=== PATIENT | male | born 1960 | race Caucasian/White ===

== ENCOUNTER 2018-06-06 12:38 | Emergency (ER) | payer MEDICARE, SELFPAY ==
[2018-06-06 12:39] VITALS: BP 139/80; PULSE 80; RESP 20; TEMP 36.6; O2SAT 99; BMI 29.9
--- NOTE | 2018-06-06 13:17 | CT_ITS ---
STUDY: CT ABDOMEN AND PELVIS WITHOUT CONTRAST REASON FOR EXAM: Male, 58 years old. Right flank pain. RADIATION DOSAGE (If Supplied By Facility): CTDIvol = ( 10.55 ) mGy, DLP = ( 508.85 ) mGycm TECHNIQUE: Transaxial images were obtained from the dome of the diaphragm to the symphysis pubis without oral contrast, and without intravenous contrast. Sagittal and coronal images were reconstructed. Individualized dose optimization techniques were used for this CT. COMPARISON: 11/03/2013 FINDINGS: The visualized lung bases are unremarkable. The visualized portions of the heart are within normal limits. Normal liver. Normal gallbladder and extrahepatic biliary system. Normal spleen. Normal pancreas. Normal bilateral adrenal glands. Normal right kidney. Punctate nonobstructing left upper and lower pole nephrolith. Normal visualized stomach. Normal small intestine. There are multiple colonic diverticula consistent with diverticulosis. The appendix is visualized and appears normal. There is diffuse atherosclerotic calcification of the abdominal aorta, without a demonstrated aneurysm. Normal inferior vena cava. Normal retroperitoneum. Normal urinary bladder. Multiple prostate seeds are noted. Normal abdominal wall. Extensive fusion of the lower lumbar spine. No acute findings. CT/Abdomen/Pelvis without Cont IMPRESSION: No acute findings. Punctate nonobstructing left-sided nephrolithiasis. Unremarkable appendix. Electronically Signed: Ignacio Ruth DO at 14:21 EDT Tel , Service support ,
--- NOTE | 2018-06-06 13:21 | ED.DCSUM_ITS ---
- ER Visit Summary Date of Service: 06/06/18 Chief Complaint: Right flank pain History of Present Illness: The patient is a 58 M who presents for 1 week of intermittent right-sided flank pain. Patient is having severe sharp stabbing pain in the right upper flank that does not radiate. It started 1 week ago and lasted a couple days, resolved and then returned yesterday. Pain is intermittent but very severe when it occurs. Worse with breathing and movement. Patient denies any fever, chest pain, shortness of breath, nausea or vomiting, diarrhea, hematuria or other urinary symptoms. No history of venous thromboembolism, travel or surgery. No cardiac history. Patient has history of chronic back pain but it is in the left lumbar region. No numbness or weakness in the arms or legs. Physical Examination: Vital signs: afebrile, hemodynamically stable, no hypoxia on room air General: well nourished, well developed, appears uncomfortable Skin: warm, dry, no rash, no pallor HEENT: normocephalic and atraumatic; PERRL, EOMI, moist mucous membranes Cardiovascular: regular rate and rhythm without murmurs, no peripheral edema, 2+ pulses all distal extremities Respiratory: No increased work of breathing, lungs are clear to auscultation bilaterally, no rales, rhonchi or wheezing Abdominal: Abdomen is soft, nontender with normoactive bowel sounds, no guarding or rebound, no masses, no CVA tenderness, no tenderness to palpation of the right flank MSK: Moves all extremities, no deformities, normal strength Neuro: Awake and alert, oriented ?4. No facial droop, sensation and motor function intact and symmetric Test Results: Abnormal Lab Results 06/06/18 06/06/18 06/06/18 13:24 13:24 14:50 WBC 6.6 RBC 4.40 L Hgb 12.8 L Hct 38.4 L MCV 87.3 MCH 29.1 MCHC 33.3 RDW 13.4 RDW Differential 41.9 Plt Count 254 MPV 8.9 Immature Gran % (Auto) 0.300 Neut % (Auto) 62.2 Lymph % (Auto) 26.7 [place] % (Auto) 7.3 Eos % (Auto) 2.7 Baso % (Auto) 0.8 Absolute Neuts (auto) 4.1 Absolute Lymphs (auto) 1.75 Total Counted Not Reportable Sodium 141 Potassium 4.0 Chloride 109 H Carbon Dioxide 26.0 Anion Gap 6 BUN 15 Creatinine 0.95 Estim Creat Clear Calc 87.51 Est GFR (MDRD) Af Amer 104 Est GFR (MDRD) Non-Af 86 BUN/Creatinine Ratio 15.7 Glucose 98 Calcium 9.1 Total Bilirubin 0.30 AST 16 ALT 25 Alkaline Phosphatase 73 Total Protein 6.9 Albumin 3.7 Globulin 3.2 Albumin/Globulin Ratio 1.2 Urine Color Yellow Urine Clarity Clear Urine pH 6.5 Ur Specific [place] 1.015 Urine Protein Negative Urine Glucose (UA) Normal Urine Ketones Negative Urine Occult Blood Negative Urine Nitrite Negative Urine Bilirubin 1 H Urine Urobilinogen Normal Ur Leukocyte Esterase 25 H Urine RBC 0-5 SEEN Urine WBC 0 SEEN Ur Squamous Epith Cells 0 SEEN Urine Bacteria 0 SEEN Urine Mucus 0 SEEN Clinical Impression(s) from Imaging Studies Abdomen/Pelvis CT 06/06/18 13:17 IMPRESSION: No acute findings. Punctate nonobstructing left-sided nephrolithiasis. Unremarkable appendix. Electronically Signed: Ignacio Ruth DO at 14:21 EDT Tel , Service support , Chest X-Ray 06/06/18 13:45 IMPRESSION: Normal x-ray examination of the chest. Electronically Signed: Ignacio Ruth DO at 14:28 EDT Tel , Service support , Abdomen/Pelvis CTA 06/06/18 15:20 IMPRESSION: No evidence of acute pathology involving the thoracic aorta. No acute pulmonary findings. Electronically Signed: Miki Trivedi MD at 16:38 EDT Tel , Service support , Medications Given Discontinued Medications Sodium Chloride () 1,000 mls @ 250 mls/hr IV .Q4H JOHN Last Admin: 06/06/18 13:24 Dose: 250 mls/hr Ketorolac Tromethamine (Toradol) 15 mg IV X1 ONE Stop: 09/29/18 13:17 Last Admin: 06/06/18 13:27 Dose: 15 mg Morphine Sulfate () 4 mg IV X1 ONE Stop: 06/06/18 15:21 Last Admin: 06/06/18 15:39 Dose: 4 mg Ondansetron HCl (Zofran) 4 mg IV X1 ONE Stop: 06/06/18 13:17 Last Admin: 06/06/18 13:27 Dose: 4 mg Emergency Department Course and Treatment: Patient was given Toradol and Zofran for symptomatic relief. He had modest improvement in his pain and required additional morphine for pain. Workup was performed to look for cause of patient's flank pain. He had no rash consistent with shingles. He had no leukocytosis or anemia. No renal derangements. Normal hepatic function. Urine was negative for infection. CT flank showed no stones and showed a normal appendix. Patient continued to have the significant intermittent right flank pain, which was not reproducible with palpation. This was concerning for possible vascular pathology, including dissection, pulmonary infarct from PE, renal infarct, etc. CT angios of the chest abdomen and pelvis was performed that showed no dissection, no aortic pathology, no PE, no pulmonary infarction or renal infarction, or any other concerning findings to explain patient's pain. Patient's pain was better controlled after 2 rounds of medication. He was given a prescription for Percocet for pain and will continue to use naproxen at home. He will follow-up on Friday with his primary care doctor. He was discharged home and will return if worsening of his condition. Treatment Plan: [] Disposition: [] Impression: Right flank pain of unknown origin This note was generated with [email or web address] dictation software. It may contain incorrect words, spelling, and punctuation that were not noted in review of the chart prior to signing ED Disposition - Plan for ED Patient: Disposition: Home or Assisted Living Chief Complaint: Back Instructions: ED Flank Pain Uncertain Cause Prescriptions: Oxycodone HCl/Acetaminophen [Percocet 5/325] 1 tab PO Q6H PRN PRN 5 Days #15 tab PRN Reason: Pain Referrals: [facility] [Primary Care Provider] - 1-2 Days if not improving Additional Instructions: Please continue taking naproxen for pain, and use the Percocet for severe pain. Follow-up with your doctor if you are not having improvement in 2 days. If you have any worsening of your condition or any new concerning symptoms, please return immediately to the emergency department for another evaluation.
[2018-06-06] MEDS: 0.9% Normal Saline 1,000 ML 250 ML IV (13:24)
[2018-06-06] MEDS: Ondansetron 4 MG/2 ML Vial IV (13:27)
[2018-06-06] MEDS: Ketorolac 30 MG/ML Syringe 15 MG IV (13:27)
[2018-06-06 13:32] LABS: Absolute Lymphocyte Count 1.75 X10^3/ul (0.83-4.51); Absolute Neutrophil Count 4.1 X10^3/uL (2.0-7.7); Basophil# 0.05 X10^3/uL; Basophil% 0.8 % (0-1); Eosinophil# 0.18 X10^3/uL; Eosinophils% 2.7 % (0-5); Hematocrit 38.4 % (40-54); Hemoglobin 12.8 g/dl (13.0-16.5); Lymphocyte # 1.75 X10^3/ul (4.0); Lymphocyte % 26.7 % (19-41); Mean Corp Hgb Conc 33.3 g/gl (32-36); Mean Corpuscular Hgb 29.1 pg (27.0-32.0); Mean Corpuscular Volume 87.3 fL (80-94); Mean Platelet Vol. 8.9 fl (6.2-12.0); Monocyte# 0.48 X10^3/uL; Monocyte% 7.3 % (0-10); Neutrophil # 4.08 X10^3/uL (2.7-7.7); Neutrophil % 62.2 % (47-70); Platelet Count 254 K/mm3 (150-450); RBC Distribution Width CV 13.4 % (11.6-14.6); RBC Distribution Width SD 41.9 fl (35.1-43.9); White Blood Count 6.6 K/mm3 (4.4-11.0)
[2018-06-06 13:34] LABS: POSITIVE COUNT NO; POSITIVE DIFFERENTIAL NO; POSITIVE MORPHOLOGY NO
--- NOTE | 2018-06-06 13:45 | RAD_ITS ---
STUDY: X-RAY CHEST REASON FOR EXAM: Male, 58 years old. Right posterior lower chest pain TECHNIQUE: PA and lateral views of the chest. COMPARISON: 11/02/2015 FINDINGS: The lungs are clear and expanded. There is no demonstrated pleural abnormality. Normal size heart. Normal mediastinum and ramiro. Normal visualized pulmonary arteries. Normal visualized aortic arch and descending thoracic aorta. Normal visualized thoracic spine. Normal visualized ribs, clavicles, and shoulders. There is no demonstrated abnormality of the visualized soft tissue structures of the upper abdomen. RAD/Chest PA and Lateral IMPRESSION: Normal x-ray examination of the chest. Electronically Signed: Ignacio Ruth DO at 14:28 EDT Tel , Service support ,
[2018-06-06 13:47] LABS: ALB/GLOB Ratio 1.2 RATIO (0.9-2.4); AST(SGOT) 16 U/L (15-37); Alanine Aminotransfer ALT/SGPT 25 U/L (16-61); Albumin, Serum 3.7 g/dL (3.2-5.0); Alkaline Phosphatase 73 U/L (45-117); Anion Gap 6 (5-15); BUN 15 mg/dL (7-18); BUN/Creat Ratio 15.7 RATIO (10-20); Calcium,Total 9.1 mg/dL (8.5-10.1); Chloride 109 mmol/L (98-107); Creatinine, Serum 0.95 mg/dL (0.70-1.30); EST Glomerular Filtration Rate 86 mL/min (>60); Est Glom Filt Rate - Afr Amer 104 mL/min (>60); Estimated Creatinine Clearance 87.51 ml/min; Globulin 3.2 g/dL (2.2-4.2); Glucose 98 mg/dL (74-106); Protein, Total 6.9 g/dL (6.4-8.2); Sodium Level 141 mmol/L (136-145)
[2018-06-06 14:56] LABS: Bacteria 0 SEEN /hpf (None Seen); Mucous, Urine 0 SEEN /hpf (<or=2+); Squamous Epithelial Cells - UA 0 SEEN /hpf (0-5); White Blood Cells 0 SEEN /hpf (0-5)
[2018-06-06 14:57] LABS: Color, Urine Yellow (Yellow); Glucose, Dipstick Normal (Normal); Ketone-Dipstick Negative (Negative); Leukocyte Esterase-Dipstick 25 /ul (Negative); Nitrite-Dipstick Negative (Negative); Occult Blood-Urine Negative /ul (Negative); Protein-Dipstick Negative (Negative); Specific Gravity, Urine 1.015 (1.002-1.030); Urine Clarity Clear (Clear); Urine Urobilinogen Normal (Normal); Urine pH 6.5 (5.0 - 8.0)
[2018-06-06 15:07] VITALS: BP 111/71; PULSE 61; RESP 18; O2SAT 99
[2018-06-06 15:13] LABS: Urine Bilirubin Dipstick 1 mg/dL (Negative)
--- NOTE | 2018-06-06 15:20 | CT_ITS ---
CT ANGIOGRAM OF THE ABDOMEN AND PELVIS WITH CONTRAST HISTORY: Right flank and back pain with history of prostate cancer COMPARISON: 11/03/2013 Technique: Axial CT angiogram images of the abdomen and pelvis were performed after IV contrast administration followed by sagittal and coronal reconstructions. 3-D postprocessing was performed. Individualized dose optimization techniques were used for this CT. FINDINGS: Calcified plaque is present throughout the arteries of the abdomen and pelvis. No abdominal aortic dissection, occlusion, stenosis, or aneurysm. The origins of the celiac axis, superior mesenteric artery, bilateral renal arteries, and inferior mesenteric artery are patent. No flow limiting iliac artery stenoses are seen. Please note that evaluation of the left common iliac artery is limited due to artifact from adjacent lumbar hardware. Multiple lumbar fusions and laminectomies. Prostate brachytherapy seeds. 3 mm nonobstructing left renal stone. The liver, spleen, adrenal glands, right kidney, pancreas, and gallbladder are unremarkable. Multiple shotty nonenlarged retroperitoneal lymph nodes. Appendix is normal. Bladder and IVC are normal. No acute intestinal pathology is seen. IMPRESSION: No CTA evidence of significant arterial pathology in the abdomen or pelvis. Electronically Signed: Miki Trivedi MD at 16:42 EDT Tel , Service support , STUDY: CTA CHEST REASON FOR EXAM: Male, 58 years old. Right flank and back pain RADIATION DOSAGE (If Supplied By Facility): CTDIvol = ( 14.69 ) mGy, DLP = ( 1178.71 ) mGycm TECHNIQUE: The examination was performed with the intravenous administration of 100 ml of Isovue 370 contrast material. Post-processing of the angiographic images was performed, with multiplanar reformation and 3D reconstruction. Individualized dose optimization techniques were used for this CT. COMPARISON: 04/28/2015 FINDINGS: Normal enhancement of the main pulmonary artery and right and left pulmonary arteries. Normal enhancement of the bilateral peripheral pulmonary arteries. There is no demonstrated pulmonary embolism. Normal thoracic aorta and visualized great vessels. There is no demonstrated aortic dissection. Normal heart and pericardium. Normal mediastinum. Normal hilar regions. Normal visualized trachea and bronchi. Mild emphysema. Normal pleura. Normal chest wall structures. Remote right rib trauma. CT/CTA Chest W/WO Contrast IMPRESSION: No evidence of acute pathology involving the thoracic aorta. No acute pulmonary findings. Electronically Signed: Miki Trivedi MD at 16:38 EDT Tel , Service support ,
--- NOTE | 2018-06-06 15:20 | CT_ITS ---
CT ANGIOGRAM OF THE ABDOMEN AND PELVIS WITH CONTRAST HISTORY: Right flank and back pain with history of prostate cancer COMPARISON: 11/03/2013 Technique: Axial CT angiogram images of the abdomen and pelvis were performed after IV contrast administration followed by sagittal and coronal reconstructions. 3-D postprocessing was performed. Individualized dose optimization techniques were used for this CT. FINDINGS: Calcified plaque is present throughout the arteries of the abdomen and pelvis. No abdominal aortic dissection, occlusion, stenosis, or aneurysm. The origins of the celiac axis, superior mesenteric artery, bilateral renal arteries, and inferior mesenteric artery are patent. No flow limiting iliac artery stenoses are seen. Please note that evaluation of the left common iliac artery is limited due to artifact from adjacent lumbar hardware. Multiple lumbar fusions and laminectomies. Prostate brachytherapy seeds. 3 mm nonobstructing left renal stone. The liver, spleen, adrenal glands, right kidney, pancreas, and gallbladder are unremarkable. Multiple shotty nonenlarged retroperitoneal lymph nodes. Appendix is normal. Bladder and IVC are normal. No acute intestinal pathology is seen. IMPRESSION: No CTA evidence of significant arterial pathology in the abdomen or pelvis. Electronically Signed: Miki Trivedi MD at 16:42 EDT Tel , Service support , STUDY: CTA CHEST REASON FOR EXAM: Male, 58 years old. Right flank and back pain RADIATION DOSAGE (If Supplied By Facility): CTDIvol = ( 14.69 ) mGy, DLP = ( 1178.71 ) mGycm TECHNIQUE: The examination was performed with the intravenous administration of 100 ml of Isovue 370 contrast material. Post-processing of the angiographic images was performed, with multiplanar reformation and 3D reconstruction. Individualized dose optimization techniques were used for this CT. COMPARISON: 04/28/2015 FINDINGS: Normal enhancement of the main pulmonary artery and right and left pulmonary arteries. Normal enhancement of the bilateral peripheral pulmonary arteries. There is no demonstrated pulmonary embolism. Normal thoracic aorta and visualized great vessels. There is no demonstrated aortic dissection. Normal heart and pericardium. Normal mediastinum. Normal hilar regions. Normal visualized trachea and bronchi. Mild emphysema. Normal pleura. Normal chest wall structures. Remote right rib trauma. CT/CT ANGIO ABD&PEL W/O&W/DYE IMPRESSION: No evidence of acute pathology involving the thoracic aorta. No acute pulmonary findings. Electronically Signed: Miki Trivedi MD at 16:38 EDT Tel , Service support ,
[2018-06-06 15:34] LABS: Red Blood Cells-Urine 0-5 SEEN /hpf (0-5)
[2018-06-06] MEDS: Morphine 4 MG/ML Syringe IV (15:39)
--- NOTE | 2018-06-06 16:57 | ED.DEP ---
ED Disposition - Plan for ED Patient: Disposition: Home or Assisted Living Chief Complaint: Back Instructions: ED Flank Pain Uncertain Cause Prescriptions: Oxycodone HCl/Acetaminophen [Percocet 5/325] 1 tab PO Q6H PRN PRN 5 Days #15 tab PRN Reason: Pain Referrals: [facility] [Primary Care Provider] - 1-2 Days if not improving Additional Instructions: Please continue taking naproxen for pain, and use the Percocet for severe pain. Follow-up with your doctor if you are not having improvement in 2 days. If you have any worsening of your condition or any new concerning symptoms, please return immediately to the emergency department for another evaluation.
[2018-06-06 17:16] VITALS: BP 144/87; PULSE 81; RESP 16; O2SAT 99
== END 2018-06-06 17:17 | disposition home or self-care (01) ==
PROVIDERS: Emergency Provider Emergency Medicine
DX: R10.11 Right upper quadrant pain (principal); M54.5 Low back pain; G89.29 Other chronic pain; Z79.891 Long term (current) use of opiate analgesic; Z79.899 Other long term (current) drug therapy; Z87.891 Personal history of nicotine dependence
CPT/HCPCS: 71046; 71275; 74174; 74176; 80053; 81001; 85025; 96361; 96374; 96375; 99283; J7030; Q9967; J2405

== ENCOUNTER 2019-06-01 11:26 | Emergency (ER) | payer BC, MEDICARE, SELFPAY ==
[2019-06-01 11:27] VITALS: BP 151/86; PULSE 71; RESP 16; TEMP 36.6; O2SAT 99; BMI 30.1
--- NOTE | 2019-06-01 11:49 | ED.VIS.GEN ---
History of Present Illness Chief Complaint: Lower Extremity Injury Informant: Patient Onset: Month(s) Context: Gradual Onset Timing: Continuous Current Severity: Moderate Maximum Severity: Moderate Narrative: Patient presents to the emergency department with 5 to 6 weeks of worsening left-sided knee pain. He cannot recall any definitive trauma. 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 He states from time to time, he will feel like the knee is sticking. He will also have some difficulty when he comes downstairs having pain. It is not given out on him. He has been taking ibuprofen with some improvement. He denies any other systemic symptoms. he denies any fevers or chills. Prior similar symptoms: No Recent Illness/Hospitalization: No Past Medical History - Allergies and Home Meds Allergies/Adverse Reactions: Allergies codeine Adverse Reaction (Verified 06/01/19 11:29) Nausea milk Adverse Reaction (Verified 06/01/19 11:29) Other Primary Care Physician: [facility] [Primary Care Provider] - Prior records reviewed: Yes Past Medical History: - - Hypertension, GERD Smoking Status: Former smoker Review of Systems General: Denies: Chills, Fever, Sweats Eyes: Denies: Visual changes - bilaterally, Diplopia ENT: Denies: Rhinorrhea, Sore throat Cardiovascular: Denies: Chest pain, Palpitations Respiratory: Denies: Dyspnea, Cough, Dyspnea on exertion Gastrointestinal: Denies: Abdominal pain, Nausea, Vomiting, Diarrhea, Melena, Hematochezia Genitourinary: Denies: Dysuria, Hematuria, Frequency Musculoskeletal: Reports: Arthralgias. Denies: Back pain, Extremity Pain Skin: Denies: Rash, Wounds Neurological: Denies: Headache, Weakness, Numbness Physical Exam Vital Signs/Narrative: Vital Signs Temp Pulse Resp BP Pulse Ox 06/01/19 11:27 97.8 F 71 16 151/86 H 99 Inital Vital Signs reviewed: Yes General: Well nourished, Well developed, No Acute Distress Head: Normocephalic, Atraumatic Eyes: Perrl, EOMI ENT: Moist mucous membranes, No rhinorrhea Neck: Supple, Nontender Cardiovascular: Regular rate, Regular rhythm, No murmurs Respiratory: No distress, CTA bilaterally, Chest nontender Abdomen: Soft, Nontender, Nondistended, Normal bowel sounds Back: Nontender, Normal Inspection Extremities: No edema, Tenderness - Tenderness over the medial aspect of the knee. No gross laxity. Drawer testing negative. Extension preserved. Skin: Normal color, No rash Neurological: Alert, Oriented x3, Cranial nerves II-XII grossly intact, Normal Strength, Normal Sensation Psychological: Normal affect, Normal Mood Diagnostic/Tx/Re-eval Clinical Impression(s) from Imaging Studies Knee X-Ray 06/01/19 11:53 IMPRESSION: Degenerative arthrosis. Electronically Signed: Ac Royal MD at 12:13 EDT Tel , Service support , - Medical Decision Making X-rays were obtained of the knee. There is no acute fracture. No significant effusion. My suspicion is that this is more arthritis. I am going to treat patient on drawing a short course of analgesics and outpatient orthopedic follow-up. He is comfortable with this plan of care. Impression 1. Left knee arthralgia ED Disposition - Plan for ED Patient: Disposition: Home or Assisted Living Instructions: Knee Effusion Prescriptions: MethylPREDNISolone DosePak [Medrol DosePak] 4 mg PO UD #1 box Prescription Printed Hydrocodone Bitart/Apap 5-325 [[place] 5MG-325MG] 1 tab PO Q6H PRN PRN 3 Days #10 tab PRN Reason: Pain Prescription Printed [facility]errals: [facility] [Primary Care Provider] -
--- NOTE | 2019-06-01 11:53 | RAD_ITS ---
STUDY: X-RAY - LEFT KNEE REASON FOR EXAM: Male, 59 years old. Knee pain TECHNIQUE: 4 view(s) of the knee. COMPARISON: None. FINDINGS: Normal visualized distal femur. Normal visualized proximal tibia and fibula. Normal proximal tibiofibular articulation. There is mild degenerative arthrosis of the medial femorotibial compartment. Normal lateral femorotibial compartment. Normal patellofemoral articulation. There is a soft tissue prominence in the suprapatellar region suggesting a small volume joint effusion. The soft tissue structures are unremarkable. RAD/Knee 4 or More Views IMPRESSION: Degenerative arthrosis. Electronically Signed: Ac Royal MD at 12:13 EDT Tel , Service support ,
== END 2019-06-01 13:19 | disposition home or self-care (01) ==
LOC: ED 11:59
PROVIDERS: Emergency Provider Emergency Medicine
DX: M17.12 Unilateral primary osteoarthritis, left knee (principal); I10 Essential (primary) hypertension; K21.9 Gastro-esophageal reflux disease without esophagitis; Z79.899 Other long term (current) drug therapy; Z87.891 Personal history of nicotine dependence
CPT/HCPCS: 73564; 99282

== ENCOUNTER 2019-07-20 13:02 | Emergency (ER) | payer BC, MEDICARE, SELFPAY ==
[2019-07-20 13:03] VITALS: BP 151/85; PULSE 81; RESP 18; TEMP 36.6; O2SAT 99; BMI 30.5
--- NOTE | 2019-07-20 14:22 | ED.VIS.BACK ---
History of Present Illness Chief Complaint: Back Onset: Weeks - 6-8 Context: Gradual Onset Timing: Continuous Quality: Aching Location: Lumbar - worse on left, Right Leg, Left Leg Current Severity: Severe Maximum Severity: Severe Worsened by: improves with: Bending, - - sitting for extended periods Relieved by: - - facet injections 1-2 wks ago, but only for about 5 days Associated Symptoms: Radiation to Right Leg - to the knee only, Radiation to Left Leg - below knee, - - no numbness/tingling/weakness. no bowel or bladder dysfunction. Narrative: Patient has had this pain before. He is experiencing a flareup for the past 6-8 weeks. He went to see his pain management doctor and received a facet injection which really helped but that has worn off and he does not have an appointment for several other weeks. The symptoms are the same as before the injection. He has no symptoms of cauda equina syndrome. Prior similar symptoms: Yes, With Prior Back Pain - Past Medical History (1) Chronic low back pain Status: Chronic Past Medical History - Allergies and Home Meds Allergies/Adverse Reactions: Allergies codeine Adverse Reaction (Verified 07/20/19 13:05) Nausea milk Adverse Reaction (Verified 07/20/19 13:05) Other Primary Care Physician: Chago Marquez [NON-STAFF] - Keep Deepa appointment Surgical History: - - back Lives: With Family Smoking Status: Current every day smoker Review of Systems General: Denies: Chills, Fever, Sweats Gastrointestinal: Denies: Abdominal pain, Nausea, Vomiting, Diarrhea, Melena, Hematochezia Musculoskeletal: Reports: Back pain, Extremity Pain. Denies: Swelling Skin: Denies: Rash, Wounds Neurological: Denies: Headache, Weakness, Parasthesia, Numbness Physical Exam Vital Signs/Narrative: Vital Signs Temp Pulse Resp BP Pulse Ox 07/20/19 13:03 97.9 F 81 18 151/85 H 99 Inital Vital Signs reviewed: Yes General: Well nourished, Well developed, - - Well-appearing, nad Head: Normocephalic, Atraumatic Eyes: Perrl, EOMI Abdomen: Soft, Nontender, Nondistended, Normal bowel sounds Back: Normal Inspection, Nontender, Negative SLR - Right, Positive SLR - Left - Ipsilateral only, negative contralateral straight leg raise while sitting Extremeties: Nontender, No edema Skin: Normal color, No rash, No Trauma Neuro: Alert, Oriented, Normal Strength, Normal Sensation, Normal Gait, Normal Reflexes - Downgoing toes bilaterally, no clonus. Psychological: Normal affect, Normal Mood Diagnostic/Tx/Re-eval - Medical Decision Making Patient is requesting an injection of steroids because he thinks it helped in the past. I advised him the medical literature does not support treating all sciatica with steroids but if it helped him before I have no trouble trying that since he is not a diabetic and the risks are low. Was also given an injection of morphine and Norflex, and I prescribed him gabapentin to see if that helps his sciatica pain prior to following up with his doctor. I gave him a 2-week course. He states narcotics have not helped in the past so he does not want a narcotic prescription anyway. He has a ride with him and is very reasonable. ED Disposition - Plan for ED Patient: Disposition: Home or Assisted Living Diagnosis: Acute exacerbation of chronic low back pain, Left sided sciatica Instructions: BACK PAIN w/ SCIATICA Prescriptions: Gabapentin [Neurontin] 300 mg PO TID 14 Days #39 cap Prescription Printed Referrals: Chago Marquez [NON-STAFF] - Keep Deepa appointment
[2019-07-20] MEDS: Triamcinolone Acetonide 40 MG/ML Vial IM (14:39)
[2019-07-20] MEDS: Orphenadrine 60 MG/2 ML Ampul IM (14:39)
[2019-07-20] MEDS: Morphine 4 MG/ML Syringe IM (14:40)
== END 2019-07-20 15:00 | disposition home or self-care (01) ==
PROVIDERS: Emergency Provider Emergency Medicine
DX: M54.42 Lumbago with sciatica, left side (principal); G89.29 Other chronic pain; F17.200 Nicotine dependence, unspecified, uncomplicated
CPT/HCPCS: 96372; 99281

== ENCOUNTER 2021-11-10 15:00 | Emergency (ER) | payer MEDICARE, SELFPAY ==
[2021-11-10 15:02] VITALS: BP 145/93; PULSE 108; RESP 18; TEMP 36.6; O2SAT 98; BMI 31.5
--- NOTE | 2021-11-10 15:31 | ED.VIS.LOWEX ---
HPI History of Present Illness Chief Complaint: Lower Extremity Injury Detail of Chief Complaint: Bruising and mild swelling right lateral leg after knee replacement surgery Informant: patient and family Onset/Context/Timing Onset: Today Context: Gradual Onset Timing: Continuous Current Severity: Mild Maximum Severity: Mild Associated Symptoms Associated Symptoms: Negative for Parasthesia, Weakness and Loss of Funtion Narrative Narrative: 61-year-old male had knee replacement surgery done in [place] at [facility] orthopedics on the . Has been doing well he is already undergoing physical therapy. They noticed today bruising in his right calf. May be mild discomfort. Minimal swelling. He denies any chest pain or shortness of breath. He is never had a DVT or PE. He was concerned for those so came in to be evaluated. Prior similar symptoms: No Recent Illness/Hospitalization: Yes PFSH [facility] Medical History H/O prostate cancer Home Medications Cholecalciferol (Vitamin D3) [Vitamin D3] 5,000 unit PO DAILY 12/05/16 [History Last Taken Unknown] atorvastatin 20 mg PO DAILY 12/05/16 [History Last Taken Unknown] multivit with [id number] [One Daily Men's Health Tablet] 1 ea PO DAILY 12/05/16 [History Last Taken Unknown] omeprazole 40 mg PO DAILY 12/05/16 [History Last Taken 02/10/17 05:30 40 MG] vitamin B complex-folic acid [Super B Maxi Complex Caplet] 0.4 mg PO DAILY 12/05/16 [History Last Taken Unknown] meloxicam 15 mg PO DAILY 07/20/19 [History Last Taken Unknown] Allergy/AdvReac Type Severity Reaction Status Date / Time codeine AdvReac Nausea Verified 11/10/21 15:01 milk AdvReac Other Verified 11/10/21 15:01 Surgical History History of knee surgery Social History Smoking Status: Current every day smoker tobacco type: cigarettes ROS ROS ED ROS Narrative Denies recent illness. Review of Systems ROS Unobtainable: Denies due to encephalopathy Constitutional Constitutional ED: Denies fever(s) Eyes Eyes: Denies change in vision ENT ENT ED: Denies ear pain Cardiovascular Cardiovascular: Denies chest pain Respiratory/Chest Respiratory/Chest: Denies cough or dyspnea Gastrointestinal Gastrointestinal: Denies abdominal pain, diarrhea, nausea or vomiting Genitourinary Genitourinary ED: Denies dysuria Musculoskeletal Musculoskeletal: Denies myalgias Integumentary Denies rash Neurologic Neurologic: Denies headache(s) Psychiatric Psychiatric: Denies depression Endocrine Endocrinology: Denies polyuria Hematologic/Lymphatic Hematologic/Lymphatic: Denies easy bruising Allergic/Immunologic Allergic/Immunologic ED: Denies urticaria EXAM Physical Exam Narrative Exam Narrative: 61-year-old male no acute distress vital signs stable afebrile. Pulse ox 98% on room air. No hypoxia. H EENT exam unremarkable. Neck nontender. Lungs clear to auscultation. Heart regular rate and rhythm rate about 100 no murmur. Abdomen soft nontender. Moving all 4 extremities. Neurovascular intact. Right knee replacement surgery is dry and clean. Bandage in place. He is mild bruising in his right medial calf. There is no tenderness. Minimal swelling. No cord. Dorsi plantar flexion intact. There is no swelling or tenderness above the knee. Clinically this looks like soft tissue postop swelling. Const Vital Signs: 11/10/21 15:02 Temperature 98 F Temperature Source Temporal Pulse Rate 108 H Respiratory Rate 18 Blood Pressure 145/93 H Blood Pressure Mean 110 Pulse Ox 98 Oxygen Delivery Method Room Air Positive well nourished and well developed; Negative for obese, cachectic, contractures or unkempt General Appearance ED: well developed and NAD; Negative for unkempt, cachectic or contractures Nutritional Appearance: Negative for cachectic or obese HEENT Reports moist mucous membranes normocephalic and atraumatic Eyes PERRL Neck full ROM and supple Thyroid: Negative for tender Chest Wall inspection of chest normal and palpation of chest normal Resp normal respiratory effort, No no retractions and clear to auscultation bilaterally Auscultation: Negative for rales, rhonchi or wheezes Cardio regular rate, regular rhythm, S1 normal heart sound, S2 normal heart sound and no murmurs GI non-tender, non-distended and no masses Auscultation: normoactive bowel sounds Palpation: soft; Negative for tender or guarding Back/Spine no CVA tenderness General Back: Negative for CVA tenderness Cervical Spine: Negative for cervical spine tenderness Thoracic Spine / Upper Back: Negative for thoracic spinal tenderness Lumbar Spine / Lower Back: Negative for lumbar spinal tenderness Extremity normal to inspection and full ROM Extremity Narrative: Minimal swelling and bruising right calf. No cords. No tenderness. General Extremety ED: Yes edema; Negative for cyanosis General Extremity: edema; Negative for cyanosis Neuro oriented x3 Sensorium / Orientation: alert, oriented to person, oriented to place and oriented to time Motor Exam: strength 5/5 throughout Psych mental status grossly normal Appearance: Negative for unkempt Mood & Affect: Negative for anxious Skin no wounds Lesions: no lesions Rashes: no rashes Trauma: Negative for abrasion MDM MDM MDM Narrative Medical decision making narrative: 61-year-old male with bruising in his right lower leg post knee replacement surgery. Clinically this is normal postoperative course. Noninvasive is not available at this time. It will be set up to have it done first thing in the morning. He has no swelling or pain above the knee. I do not think he needs to be placed on anticoagulation at this time. Discharge Plan Triage Chief Complaint: Lower Extremity Injury ED Provider: Luis Marin Dx/Rx/DC Orders Clinical Impression: Localized swelling of right lower extremity, History of knee replacement Prescriptions: No Action atorvastatin 20 MG tablet 20 mg PO DAILY RF: 0 vitamin B complex-folic acid [Super B Maxi Complex] 0.4 MG tablet 0.4 mg PO DAILY RF: 0 multivit with [id number] [One Daily For Men] 1 EACH tablet 1 ea PO DAILY RF: 0 Cholecalciferol (Vitamin D3) [Vitamin D3] 5,000 UNIT capsule 5,000 unit PO DAILY RF: 0 meloxicam 15 MG tablet 15 mg PO DAILY RF: 0 omeprazole 20 MG capsule 40 mg PO DAILY RF: 0 Primary Care Provider: [facility] Ref[place] [Primary Care Provider] - Activity Restrictions/Additional Instructions: I will suggest to have a noninvasive study (right lower leg ultrasound) tomorrow morning. The hospital will call you. You will come back in and they will do it at that time. Normal activity and follow your post surgery instructions. Disposition Disposition: Home, Self Care
== END 2021-11-10 15:42 | disposition home or self-care (01) ==
PROVIDERS: Emergency Provider Emergency Medicine; Visit Provider Emergency Medicine
DX: M79.89 Other specified soft tissue disorders (principal); F17.210 Nicotine dependence, cigarettes, uncomplicated; Z96.659 Presence of unspecified artificial knee joint
CPT/HCPCS: 99282

== ENCOUNTER 2021-11-11 12:11 | Outpatient (CLI) | payer MEDICARE, SELFPAY ==
--- NOTE | 2021-11-11 12:28 | VDLE_ITS ---
Reason For Study: Swelling RIGHT GSV is normal. CFV is compressible, spontaneous, phasic, competent and demonstrates normal augmentation. FV is compressible, spontaneous, phasic, competent and demonstrates normal augmentation. POP V is compressible, spontaneous, phasic, competent and demonstrates normal augmentation. T/P Trunk is compressible. PTV is compressible. RT PerV is compressible. Procedure This is a venous duplex using B-mode, color flow and spectral Doppler. Exam performed in department. A preliminary report was called and/or faxed to ED. VL/Venous Duplex US, Unilateral Interpretation Summary Deep veins of the right lower extremity are patent and compressible segmentally . There is no evidence of right lower extremity deep vein thrombosis. Valvular competence laura ears intact within the proximal deep venous system on the right . The right great saphenous vein a ppears patent and compressible segmentally. Ordering Physician: Luis Marin Referring Physician: [facility] Performed By: Migdalia Nicholson, CAITLYN, RVT
== END 2021-11-11 23:59 | disposition home or self-care (01) ==
LOC: CVS 12:13
PROVIDERS: Visit Provider Emergency Medicine
DX: R22.41 Localized swelling, mass and lump, right lower limb (principal)
CPT/HCPCS: 93971

== ENCOUNTER 2025-03-13 08:51 | Emergency (ER) | payer OTHER, SELFPAY ==
[2025-03-13] VITALS (8 sets, daily range): BP systolic 124–159; BP diastolic 96–133; PULSE 81–96; RESP 16–18; TEMP 36–36.5; O2SAT 93–98; BMI 26.9
[2025-03-13 11:09] LABS: Hematocrit 48.4 % (40-54); Hemoglobin 16.2 g/dL (13.0-16.5); Immature Granulocytes Count 0.080 X10^3/uL (0.0-0.0); Mean Corp Hgb Conc 33.5 g/dL (32-36); Mean Corpuscular Volume 85.1 fL (80-94); Mean Platelet Vol. 8.3 fl (6.2-12.0); NRBC Flagged by Analyzer 0 % (0-5); Platelet Count 323 K/mm3 (150-450); RBC Distribution Width CV 14.6 % (11.6-14.6); RBC Distribution Width SD 44.8 fl (35.1-43.9); Red Blood Count 5.69 M/mm3 (4.6-6.2); White Blood Count 9.8 K/mm3 (4.4-11.0)
[2025-03-13] MEDS: 0.9% Normal Saline (1000mL) 1,000 ML 999 ML IV (11:09)
--- OUTSIDE RECORDS SUMMARY | 2025-03-13 11:14 | XMS RPT_ITS | CCD ---
Author Organization [facility] Care Team Providers Care Program Director [employer] Name Role Phone BRYSON SENIOR MARKETING ANALYST-NAYDecember Primary Care Physician [phone] PILO SANTIAGO Attending Unavailable DANIA Attending Unavailable Anu SENIOR MARKETING ANALYST.Jose TEE Primary Care Provider [phone] Herbie LUCAS, Vimal Unavailable Enzo LUCAS, Roger Unavailable [phone] Mingo CONCEPCION, Brittani Unavailable [phone] Anu SENIOR MARKETING ANALYST.Jose TEE Primary Care Provider [phone] ANNE-MARIE CONSTANTINO Referring Unavailabl e PROVIDER, UNKNOWN Attending Unavailable PROVIDER, UNKNOWN Admitting Unavailable Unavailable Primary Care Provider Unavailabl e ANU, JOSE Primary Care Unavailable ERNIE AVALOS Attending Unavailable MELLISSA-STEVEDANYELLE Admitting Unavailab le MELLISSA-STEVE, DANYELLE Attending Unavailab le MELLISSA-STEVE, DANYELLE Referring Unavailab le ANU, JOSE Primary Care Unavailable Anu SENIOR MARKETING ANALYST.Jose TEE Primary Care Provider Anu SENIOR MARKETING ANALYST.Jose TEE Primary Care Provider [phone] ROGER DORSEY A Referring Unavailable ANU, JOSE Primary Care Unavailable ABRAMOVICH, ROGER A Referring Unavailable ANU, JOSE Primary Care Unavailable ABRAMOVICH, ROGER A Referring Unavailable ANU, JOSE Primary Care Unavailable ABRAMOVICH, ROGER A Referring Unavailable ANU, JOSE Primary Care Unavailable ABRAMOVICH, ROGER Referring Unavailable ANU, JOSE Primary Care Unavailable ABRAMOVICH, ROGER Referring Unavailable ANU, JOSE Primary Care Unavailable ABRAMOVICH, ROGER Referring Unavailable ANU, JOSE Primary Care Unavailable ABRAMOVICH, ROGER Referring Unavailable ANU, JOSE Primary Care Unavailable ABRAMOVICH, ROGER Referring Unavailable ANU, JOSE Primary Care Unavailable ABRAMOVICH, ROGER Referring Unavailable ANU, JOSE Primary Care Unavailable ANU, JOSE Attending Unavailable SELF Referring Unavailable ANU, JOSE Primary Care Unavailable ANU, JOSE Referring Unavailable ANU, JOSE Primary Care Unavailable ABRAMOVICH, ROGER Attending Unavailable SELF Referring Unavailable ANU, JOSE Primary Care Unavailable VIMAL STONER Attending Unavailable VIMAL STONER Referring Unavailable ANU, JOSE Primary Care Unavailable ANU, JOSE Primary Care Unavailable ABRAMOVICH, ROGER Attending Unavailable SELF Referring Unavailable ANU, JOSE Primary Care Unavailable ABRAMOVICH, ROGER Referring Unavailable ANU, JOSE Primary Care Unavailable CONTEKARON DOBSON Attending Unavailable SELF Referring Unavailable ANU, JOSE Primary Care Unavailable ABRAMOVICH, ROGER Referring Unavailable ANU, JOSE Primary Care Unavailable ABRAMOVICH, ROGER Referring Unavailable ANU, JOSE Primary Care Unavailable ABRAMOVICH, ROGER Referring Unavailable ANU, JOSE Primary Care Unavailable ABRAMOVICH, ROGER Attending Unavailable ABRAMOVICH, ROGER Referring Unavailable ANU, JOSE Primary Care Unavailable VIMAL STONER Attending Unavailable ANU, JOSE Primary Care Unavailable ABRAMOVICH, ROGER Referring Unavailable ANU, JOSE Primary Care Unavailable ABRAMOVICH, ROGER Referring Unavailable ANU, JOSE Primary Care Unavailable ABRAMOVICH, ROGER Attending Unavailable SELF Referring Unavailable ANU, JOSE Primary Care Unavailable ABRAMOVICH, ROGER Referring Unavailable ANU, JOSE Primary Care Unavailable ABRAMOVICH, ROGER Referring Unavailable ANU, JOSE Primary Care Unavailable ABRAMOVICH, ROGER Referring Unavailable ANU, JOSE Primary Care Unavailable ABRAMOVICH, ROGER Referring Unavailable ANU, JOSE Primary Care Unavailable ABRAMOVICH, ROGER Referring Unavailable ANU, JOSE Primary Care Unavailable CONTEKARON DOBSON Attending Unavailable ANU, JOSE Primary Care Unavailable ABRAMOVICH, ROGER Referring Unavailable ANU, JOSE Primary Care Unavailable ABRAMOVICH, ROGER Referring Unavailable ANU, JOSE Primary Care Unavailable ABRAMOVICH, ROGER Referring Unavailable ANU, JOSE Primary Care Unavailable CONTEKARON DOBSON Attending Unavailable SELF Referring Unavailable ANU, JOSE Primary Care Unavailable ABRAMOVICH, ROGER Attending Unavailable SELF Referring Unavailable ANU, JOSE Primary Care Unavailable ABRAMOVICH, ROGER Referring Unavailable ANU, JOSE Primary Care Unavailable ABRAMOVICH, ROGER Referring Unavailable ANU, JOSE Primary Care Unavailable ABRAMOVICH, ROGER Referring Unavailable ANU, JOSE Primary Care Unavailable ABRAMOVICH, ROGER Referring Unavailable ANU, JOSE Primary Care Unavailable ABRAMOVICH, ROGER Referring Unavailable ANU, JOSE Primary Care Unavailable ABRAMOVICH, ROGER Referring Unavailable ANU, JOSE Primary Care Unavailable ABRAMOVICH, ROGER Attending Unavailable ANU, JOSE Primary Care Unavailable ANU, JOSE Primary Care Unavailable ANU, JOSE Attending Unavailable ANU, OJSE Primary Care Unavailable ANU, JOSE Attending Unavailable ANU, JOSE Referring Unavailable ANU, JOSE Primary Care Unavailable ANU, JOSE Referring Unavailable ANU, JOSE Primary Care Unavailable ABRAMOVICH, ROGER Attending Unavailable ANU, JOSE Primary Care Unavailable ANU, JOSE Attending Unavailable ANU, JOSE Referring Unavailable ANU, JOSE Primary Care Unavailable ABRAMOVICH, ROGER Referring Unavailable ANU, JOSE Primary Care Unavailable ABRAMOVICH, ROGER Referring Unavailable ANU, JOSE Primary Care Unavailable ANU, JOSE Attending Unavailable SELF Referring Unavailable ANU, JOSE Primary Care Unavailable ABRAMOVICH, ROGER Referring Unavailable ANU, JOSE Primary Care Unavailable ABRAMOVICH, ROGER Attending Unavailable SELF Referring Unavailable ANU, JOSE Primary Care Unavailable KARON CONTE Attending Unavailable ANU, JOSE Primary Care Unavailable HERBIE, DAESUNG Attending Unavailable HERBIE, DAFADIUNG Referring Unavailable ANU, JOSE Primary Care Unavailable ANU, JOSE Attending Unavailable ANU, JOSE Primary Care Unavailable ABRAMOVICH, ROGER Referring Unavailable ANU, JOSE Primary Care Unavailable ABRAMOVICH, ROGER Referring Unavailable ANU, JOSE Primary Care Unavailable ABRAMOVICH, ROGER Referring Unavailable ANU, JOSE Primary Care Unavailable ABRAMOVICH, ROGER Referring Unavailable ANU, JOSE Primary Care Unavailable ABRAMOVICH, ROGER Referring Unavailable ANU, JOSE Primary Care Unavailable ABRAMOVICH, ROGER Referring Unavailable ANU, JOSE Primary Care Unavailable Allergies Allergy Classification Reported Allergen(s) Allergy Type Date of Onset Reaction(s) Facility (1 source) [place] Food allergy [facility] (20 sources) Buprenorphine; Translations: [buprenorphine] Drug Allergy 4 Hives [facility] (20 sources) Codeine; Translations: [codeine] Drug Allergy 4 [facility] (1 source) Wheat preparation Drug Allergy with allergy testing,showed allergy to wheat [facility] (1 source) Dairy products Food allergy chest congestion [facility] (1 source) misc analgesics 1 Drug allergy [facility] Comment on above: ana paula (20 sources) cow milk allergenic extract; Translations: [MILK] Drug Allergy 4 Other: See Comments [facility] (20 sources) Adhesive Tape-Silicones; Translations: [ADHESIVE TAPE-SILICONES] Drug Intolerance 3 Rash [facility] Work Phone: Medications Current Medications Medication Drug Class(es) Dates Sig (Normalized) Sig (Original) acetaminophen 325 mg / HYDROcodone bitartrate 5 mg oral tablet (5 sources) Opioid Agonist Start: 06-07-2024 End: 06-12-2024 take 1 tablet by mouth every eight hours as needed for pain HYDROcodone-acetami nophen (NORCO) 5-325 mg per tablet Indications: Cancer related pain , 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 15 tablet 06/07/2024 06/12/2024 Active End: 01-10-2023 take 1 tablet by mouth every eight hours as needed HYDROcodone-Acetaminophen 10-325 mg per tablet Take 1 tablet by mouth every 8 hours as needed. 0 01/10/2023 Discontinued Comment on above: Take 1 tablet by cecily every 8 hours as needed. [id number] 200 actuat albuterol 0.09 mg/actuat metered dose inhaler (20 sources) beta2-Adrenergic Agonist Start: 023 End: 025 take 2 puff(s) by inhalation every six hours as needed for wheezing albuterol HFA (PROVENTIL HFA, VENTOLIN HFA) 90 mcg/actuation inhaler Indications: Subacute cough , Malignant neoplasm of lung, unspecified laterality, unspecified part of lung (HCC) , Sinobronchitis Inhale 2 Puffs as instructed every 6 hours as needed for wheezing/shortness of breath. 1 Each 1 11/16/2024 Active Comment on above: Inhale 2 Puffs as in structed every 6 hours as needed for wheezing/shortness of breath. albuterol 0.833 mg/ml / ipratropium bromide 0.167 mg/ml inhalation solution (13 sources) Anticholinergic, beta2-Adrenergic Agonist Start: 025 take 3 mL by inhalation every four hours as needed for wheezing ipratropium-albutero l (DUONEB) 0.5 mg-3 mg(2.5 mg base)/3 mL nebu Indications: Subacute cough , Malignant neoplasm of lung, unspecified laterality, unspecified part of lung (HCC) , Sinobronchitis Inhale 3 mL as instructed every 4 hours as needed for wheezing/shortness of breath. 90 Each 11/16/2024 Active amitriptyline hydrochloride 25 mg oral tablet (20 sources) Tricyclic Antidepressant Start: 024 End: take 1 tablet by mouth once daily at bedtime for headache amitriptyline (ELAVIL) 25 mg tablet Indications: Chronic nonintractable headache, unspecified headache type Take 1 tablet by mouth daily at bedtime. for headache 30 tablet 11 02/28/2025 Active Start: 12-16-2023 End: 01-06-2024 take 1 tablet by mouth once daily at bedtime for headache amitriptyline (ELAVIL) 10 mg tablet Indications: Chronic nonintractable headache, unspecified headache type Take 1 tablet by mouth daily at bedtime. for headache 30 tablet 2 12/16/2023 01/06/2024 Discontinued Comment on above: Take 1 tablet by cecily th daily at bedtime. for headache amLODIPine 5 mg oral tablet (20 sources) Dihydropyridine Calcium Channel Lesvia Start: 02-29-20 take 1 tablet by mouth twice daily amLODIPine (NORVASC) 5 mg tablet Indications: Primary hypertension Take 1 tablet by mouth two times a day. 180 tablet 3 02/28/2025 Active Start: 04-14-2023 End: 02-28-2025 take 1 tablet by mouth once daily amLODIPine (NORVASC) 5 mg tablet Indications: Primary hypertension Take 1 tablet by mouth once daily. 90 tablet 3 08/16/2024 02/28/2025 Discontinued Comment on above: Take 1 tablet by cecily once daily. amoxicillin 875 mg / clavulanate 125 mg oral tablet (6 sources) Penicillin-class Antibacterial Start: 11-03-19 End: 11-11-19 take 1 tablet by mouth twice daily amoxicillin-clavulan ate potassium (AUGMENTIN) 875-125 mg per tablet Take 1 tablet by mouth two times a day for 7 days. 14 tablet 11/03/2024 11/10/2024 Active aspirin 81 mg delayed release oral tablet (20 sources) Platelet Aggregation Inhibitor, Nonsteroidal Anti-inflammatory Drug take 1 tablet by mouth once daily aspirin, enteric coated (ASPIRIN, ENTERIC COATED) 81 mg EC tablet Take 81 mg by mouth once daily. Active atorvastatin 20 mg oral tablet (20 sources) HMG-CoA Reductase Inhibitor Start: 03-04-20 End: 11-10-19 atorvastatin 20 mg oral tablet Dose : 20 mg = 1 tab(s), Oral, Daily, 0 Refill(s) Start Date: 03/04/18 Status: Ordered take 1 tablet by mouth once ceferino y atorvastatin (LIPITOR) 40 mg tablet Take 40 mg by mouth once daily. Active Comment on above: Take 20 mg by mouth once daily. Takes 1/2 Take 40 mg by mouth once daily. benzonatate 100 mg oral capsule (13 sources) Non-narcotic Antitussive Start: take 2 capsules by mouth three times daily as needed for cough benzonatate (TESSALON PERLE) 100 mg capsule Indications: Subacute cough , Malignant neoplasm of lung, unspecified laterality, unspecified part of lung (HCC) , Sinobronchitis Take 2 capsules by mouth three times a day as needed for cough. 90 capsule 11/16/2024 Active cholecalciferol 0.025 mg oral capsule (20 sources) Vitamin D take 1 capsule by mouth once daily Cholecalciferol, Vitamin D3, 25 mcg (1,000 unit) cap Take 2,000 Units by mouth once daily. Active Comment on above: Take 2,000 Units by mouth once daily. cream base no.171, bulk, crea (9 sources) End: 024 cream base no.171, bulk, crea three times a day as needed. Ibuprofen 10%, amitriptyline 2%, lidocaine 4% 0 11/10/2023 Discontinued (Other) cream base no.17 1, bulk, crea three times daily as needed. Ibuprofen 10%, amitriptyline 2%, lidocaine 4% 0 Active Comment on above: three times daily as needed. Ibuprofen 10%, amitriptyline 2%, lidocaine 4% three times a day as needed. Ibuprofen 10%, amitriptyline 2%, lidocaine 4% cycloSPORINE 0.5 mg/ml ophthalmic suspension (20 sources) Calcineurin Inhibitor Immunosuppressant take 1 drop(s) into the eye(s) every twelve hours cycloSPORINE 0.05 % drop Use 1 Drop in both eyes every 12 hours. Active Comment on above: Use 1 Drop in both e yes every 12 hours. diphenhydrAMINE hydrochloride 50 mg oral capsule (1 source) Histamine-1 Receptor Antagonist Start: 2017 diphenhydrAMINE 50 mg oral capsule Dose : 50 mg = 1 cap(s), Oral, qHS, PRN for insomnia, 0 Refill(s) Start Date: 03/04/18 Status: Ordered doxycycline monohydrate 100 mg oral capsule (2 sources) Tetracycline-class Drug Start: 2024 End: 2024 take 1 capsule by mouth twice daily doxycycline monohydrate (MONODOX) 100 mg capsule Indications: Subacute cough , Malignant neoplasm of lung, unspecified laterality, unspecified part of lung (HCC) , Sinobronchitis Take 1 capsule by mouth two times a day for 14 days. 28 capsule 11/16/2024 11/30/2024 Active esomeprazole 40 mg delayed release oral capsule (20 sources) Proton Pump Inhibitor take 1 capsule by mouth once daily before breakfast esomeprazole (NEXIUM) 40 mg capsule Take 40 mg by mouth daily before breakfast. Active Comment on above: Take 40 mg by mouth daily before breakfast. 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 90 tablet 1 11/03/2024 Active Comment on above: Take 1 tablet by [facility] once daily. ibuprofen 800 mg oral tablet (20 sources) Nonsteroidal Anti-inflammatory Drug Start: 2017 IBU 800 mg oral tablet Dose : 800 mg = 1 tab(s), Oral, TID, PRN for pain, # 30 tab(s), 0 Refill(s) Start Date: 03/06/18 Status: Ordered take 4 tablets by [facility] every eight hours as needed ibuprofen (MOTRIN) 200 mg tablet Take 80 0 mg by mouth every 8 hours as needed. Active iv contrast (will be provide d with radiology test) (2 sources) Start: 02-11-2024 End: 02-12-2024 iv contrast (will be provide d with radiology test) CT Chest W -Inject, intravenously, once for 1 dose.No IV access, insert saline lock prior to the beginning of sedation, infusion, injection of imaging exam. Discontinue saline lock post exam. If Pt. has a central line or IVAD, may access for administration according to line specific nursing protocol. Once exam is complete flush line and de-access according to line specific nursing protocol in the CT contrast administration guidelines link. 1 Each 0 02/11/2024 02/12/2024 Active Start: 08-01-2023 End: 08-02-2023 inject 1 dose intravenously once iv contrast (will be provided with radiology test) Indications: Brain aneurysm , Malignant neoplasm of prostate (HCC) , Seizure-like activity (HCC) CTA Head/Neck WO/W No IV access, insert saline lock prior to the sedation, infusion, injection for imaging exam. Discontinue saline lock post exam. If Pt. has a central line or IVAD, may access for administration according to line specific nursing protocol. Once exam is complete flush line and de-access according to line specific nursing protocol in the CT contrast administration guidelines link. 1 Each 0 08/01/2023 08/02/2023 Active Comment on above: CTA Head/Neck WO/W N o IV access, insert saline lock prior to the sedation, infusion, injection for imaging exam. Discontinue saline lock post exam. If Pt. has a central line or IVAD, may access for administration according to line specific nursing protocol. Once exam is complete flush line and de-access according to line specific nursing protocol in the CT contrast administration guidelines link. magnesium aspart,citrate,oxide 400 mg magnesium cap (20 sources) take 1 capsule by mouth once daily magnesium aspart,citrate,oxide 400 mg magnesium cap Take 1 capsule by mouth once daily. Active take 1 capsule by mouth once suzy ly magnesium aspart,citrate,oxide 400 mg magnesium cap Take 1 capsule by mouth once daily. 0 Active take 1 capsule by mouth twice [place] magnesium aspart,citrate,oxide 400 mg magnesium cap Take 1 capsule by mouth two times a day. 0 Active meloxicam 15 mg oral tablet (20 sources) Nonsteroidal Anti-inflammatory Drug Start: 01-15-2019 take 1 tablet by mouth once daily meloxicam (MOBIC) 15 mg tablet Take 1 tablet by mouth once daily. 01/15/2019 Active Comment on above: Take 1 tablet by cecily th once daily. menthol 50 mg/ml / methyl salicylate 140 mg/ml topical solution (2 sources) End: 11-10-2023 Menth-Methyl [place] Oil 5-14 % liqd Apply 0.25 g to affected area two times a day. Apply as needed to knees, shoulders, and wrists for pain relief 0 11/10/2023 Discontinued (Other) Comment on above: Apply 0.25 g to affe cted area two times a day. Apply as needed to knees, shoulders, and wrists for pain relief methylPREDNISolone (5 sources) Corticosteroid Start: 06-11-2024 End: 06-17-2024 methylPREDNISolone (MEDROL, HERMELINDA,) 4 mg Dose-Pack Indications: Cancer related pain Take as instructed per package. 21 tablet 06/11/2024 06/17/2024 Active Start: 05-27-2024 End: 06-02-2024 methylPREDNISolone (MEDROL, HERMELINDA,) 4 mg Dose-Pack Take as instructed per package. 21 tablet 05/27/2024 06/02/2024 Active End: 01-10-2023 methylPREDNISolone (MEDROL D OSE-PACK) 4 mg Dose-Pack Take by mouth. As Instructed per package 0 01/10/2023 Discontinued Comment on above: Take by mouth. As In structed per package metroNIDAZOLE 0.01 mg/mg topical gel (20 sources) Nitroimidazole Antimicrobial Start: 07-19-20 24 metroNIDAZOLE (METROGEL) 1 % Topical Gel Indications: Rash Apply 1 application to affected area once daily. Location: area of rash on face 120 g 3 07/19/2024 Active Multivitamin capsule (20 sources) take 1 capsule by mouth once daily Multivitamin capsule Take 1 capsule by mouth once daily. Active take 1 capsule by mouth once suzy ly Multivitamin capsule Take 1 capsule by mouth once daily. 0 Active Comment on above: Take [address] [facility] once daily. omeprazole 20 mg delayed release oral capsule (10 sources) Proton Pump Inhibitor Start: 03-04-2018 omeprazole 20 mg oral delayed release capsule (NF) Dose : 20 mg = 1 cap(s), Oral, BIDAC, 0 Refill(s) Start Date: 03/04/18 Status: Ordered End: 11-10-2023 take 20 mg by mouth twice daily Omeprazole 20 mg TbEC Take 20 mg by mouth two times a day. 0 11/10/2023 Discontinued (Other) Comment on above: Take 20 mg by mouth twice daily. Take 20 mg by mouth two times a day. 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 30 tablet 2 11/19/2023 03/15/2024 Discontinued Comment on above: Take 1 tablet by [facility] every 8 hours as needed. oxyCODONE hydrochloride 5 mg oral tablet (20 sources) Opioid Agonist Start: 4 End: 4 take 1 tablet by mouth every six hours as needed for pain oxyCODONE IR (ROXICODONE) 5 mg immediate release tablet Indications: Myalgias Take 1 tablet by mouth every 6 hours as needed for pain for up to 3 days. 12 tablet 06/10/2024 06/13/2024 Active End: 07-19-2024 take 1 tablet by mouth every eight hours as needed oxyCODONE IR (ROXICODONE) 5 mg immediate release tablet Take 5 mg by mouth every 8 hours as needed for pain. 07/19/2024 Discontinued End: 03-15-2024 take 1 capsule by mouth every six hours as needed oxyCODONE ir (OXYIR) 5 mg capsule Take 5 mg by mouth every 6 hours as needed for pain. 0 03/15/2024 Discontinued Comment on above: Take 5 mg by mouth e very 6 hours as needed for pain. pantoprazole 40 mg delayed release oral tablet (9 sources) Proton Pump Inhibitor Start: 2 End: 4 take 1 tablet by mouth once daily in the morning pantoprazole DR (PROTONIX) 40 mg tablet Take 1 tablet by mouth every morning. 0 05/22/2022 11/10/2023 Discontinued (Other) Comment on above: Take 1 tablet by cecily th every morning. predniSONE 10 mg oral tablet (20 sources) Start: End: take 1 tablet by mouth once daily at breakfast predniSONE (DELTASONE) 10 mg tablet Indications: 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) TAKE 1 TABLET BY MOUTH ONCE DAILY. TAKE WITH BREAKFAST 30 tablet 2 03/01/2025 Active Start: 06-23-2024 End: 11-04-2024 take 1 tablet by mouth once daily at breakfast predniSONE (DELTASONE) 10 mg tablet Indications: 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) Take 1 tablet by mouth once daily. Take with breakfast 30 tablet 2 09/09/2024 11/04/2024 Discontinued prochlorperazine 10 mg oral tablet (20 sources) Phenothiazine Start: 09-28-2024 take 1 tablet by mouth every six hours as needed for nausea prochlorperazine (COMPAZINE) 10 mg tablet Indications: CINV (chemotherapy-induced nausea and vomiting) Take 1 tablet by mouth every 6 hours as needed for nausea/vomiting. 30 tablet 3 09/28/2024 Active Start: 01-01-2024 End: 03-15-2024 take 1 tablet by mouth every six hours as needed prochlorperazine (COMPAZINE) 10 mg tablet Take 1 tablet by mouth every 6 hours as needed for nausea/vomiting. 30 tablet 3 01/01/2024 03/15/2024 Discontinued sucralfate 100 mg/ml oral suspension (20 sources) Aluminum Complex Start: 12-23-2023 End: 03-15-2024 take 10 mL by mouth four times daily sucralfate (CARAFATE) 100 mg/mL suspension Take 10 mL by mouth four times daily. 500 mL 1 12/23/2023 03/15/2024 Discontinued Comment on above: Take 10 mL by mouth four times daily. vitamin B3 (1 source) Start: 03-04-2018 take 1000 mg by mouth once daily vitamin B3 vitamin B3, 1,000 mg, Oral, qDay, 0 Refill(s) Start Date: 03/04/18 Status: Ordered zinc acetate 50 mg oral capsule (20 sources) take 1 capsule by mouth once daily Zinc Acetate, Oral, 50 mg (zinc) cap Take 1 capsule by mouth once daily. Active zolpidem tartrate 10 mg oral tablet (20 sources) gamma-Aminobutyr ic Acid-ergic Agonist Start: 07-19-2024 End: 07-16-2025 take 1 tablet by mouth at bedtime as needed zolpidem (AMBIEN) 10 mg Indications: Insomnia due to medical condition Take 1 tablet by mouth at bedtime as needed for up to 180 days. 90 tablet 1 01/17/2025 07/16/2025 Active Start: 10-06-2023 End: 07-19-2024 take 1 tablet by mouth every 30 days at bedtime as needed zolpidem (AMBIEN) 10 mg Indications: Insomnia due to medical condition Take 1 tablet by mouth at bedtime as needed for up to 30 days. 30 tablet 07/19/2024 07/19/2024 Discontinued Start: 01-10-2023 End: 11-10-2023 take 1 tablet by mouth at bedtime as needed zolpidem (AMBIEN) 10 mg Indications: Insomnia due to medical condition Take 1 tablet by mouth at bedtime as needed for up to 90 days. 90 tablet 0 07/11/2023 11/10/2023 Discontinued Comment on above: Take 1 tablet by cecily th at bedtime as needed for up to 90 days. Take 10 mg by mouth at bedtime as needed. Take 1 tablet by cecily th at bedtime as needed for up to 30 days. Take 1 tablet by cecily th at bedtime as needed for up to 30 days. Do not start before December 09, 2023. Take 1 tablet by cecily th at bedtime as needed for up to 30 days. Do not start before January 08, 2024. Take 1 tablet by cecily th at bedtime as needed for up to 30 days. Do not start before February 06, 2024. Completed/Discontinued Medications Medication Drug Class(es) Dates Sig (Normalized) Sig (Original) ascorbic acid 1000 mg oral tablet (4 sources) Vitamin C End: 07-11-2023 Ascorbic Acid (VITAMIN C) 1,000 mg tablet Take 500 mg by mouth three times daily. 0 07/11/2023 Discontinued Comment on above: Take 500 mg by mouth three times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 or lung (HCC) * * * * Physician Interpretation * * * * EXAMINATION: BODY FDG PET-CT CLINICAL HISTORY: Malignant neoplasm of unspecified part of unspecified bronchus or lung. EXAM CATEGORY: Subsequent treatment strategy. TECHNIQUE: Radiopharmaceutical was administered intravenously followed by PET imaging from the eyes to thighs. Free breathing, low dose CT of the same body region was acquired without IV contrast for attenuation correction and anatomic localization. Unenhanced imaging is limited for the evaluation of some pathology and the acquired CT was not designed to produce diagnostic CT scan quality. Physiologic/non-pathol ogic uptake in some body regions could confound or obscure some pathology. * CT Dose-Length Product (DLP): 357 mGy*cm * CT Dose Reduction Employed: Yes * Blood glucose: 143 mg/dL * Injection site: Right Forearm-Antecubital * Injected activity: 9.3 mCi * Uptake Time: 70 minutes * Radiopharmaceutical: [id number] (FDG) COMPARISON: FDG PET/CT 11/08/2024 CORRELATION: No relevant prior imaging available RESULT: REFERENCES: FDG uptake is used as a surrogate marker for glucose metabolism. All reported standardized uptake values represent maximum SUV (SUVmax) per body weight, unless otherwise specified. SUV reference values, as follows: * Blood Pool (Descending Aorta): SUVmax 1.8 * Background Liver: SUVmax 3.5; SUVmean 2.3 Localizer Images: No additional findings. HEAD AND NECK: Head: No radiotracer avid lesion or mass effect in the imaged intracranial compartment. Aerodigestive Tract: Previously noted asymmetric uptake at the right posterior nasopharynx has decreased in conspicuity. There is now relatively symmetric, likely physiologic activity bilaterally. Lymph Nodes: Resolution of tracer avid bilateral subcentimeter level 2 nodes. No radiotracer avid lymphadenopathy. Neck Soft Tissues: Redemonstrated diffuse thyroid activity. CHEST: Lungs & Pleura: Left upper lobe irregular nodular consolidation has decreased in metabolic activity and size, measuring SUV max 1.9, 1.3 x 1.2 cm (3:94), previously SUV max 3.4, 2.2 x 1.7 cm. No pleural effusion. Lymph Nodes: Although left hilar adenopathy has increased slightly in metabolic activity measuring SUV max 5.1 (previously 4.2), other thoracic nodes have decreased in metabolic activity, some also decreased in size. For example, a low periesophageal node measures SUV max 3.4, 1.3 x 1.0 cm (3:124), previously SUV max 5.8, 1.5 x 1.1 cm. Clustered low right paratracheal nodes measure SUV max 2.3, previously 4.2. Cardiovascular: Blood pool activity. No pericardial effusion. Normal heart size. Thoracic aortic and coronary artery calcifications. Chest Wall: No radiotracer avid soft tissue lesion. ABDOMEN AND PELVIS: Hepatobiliary: There are scattered foci of hypermetabolic activity, without definite correlate on CT. For example, focal uptake at the anterior left hepatic lobe measures SUV max 4.7 and focal uptake at the inferior right hepatic lobe measures SUV max 4.1. Spleen: No radiotracer avid lesion. No splenomegaly. Pancreas: No radiotracer avid lesion. Adrenals: New focal uptake at the right adrenal gland measures SUV max 6.9. Urinary Tract: Physiologic radiotracer excretion in the renal collecting systems and urinary bladder. Bilateral nonobstructing nephrolithiasis. No hydronephrosis. GI Tract: No radiotracer avid lesion. Bowel postsurgical changes. No bowel dilation. Peritoneum: No radiotracer avid lesion. No ascites. Lymph Nodes: A new tracer avid left external iliac node measures SUV max 9.1, 1.2 x 0.8 cm (3:263). Vasculature: Blood pool activity. Vascular calcifications without an abdominal aortic aneurysm. Pelvic Organs: No radiotracer avid lesion. Brachytherapy seeds within the prostate. MUSCULOSKELETAL: Bones: Multifocal metabolically active osseous metastases have increased in extent and intensity, now more diffusely involving the axial and proximal appendicular skeleton. Beef Killer areas include: * Uptake at the right femoral lesser trochanter, increased in intensity and extent measuring SUV max 8.3, previously 4.6 * Uptake at the right para midline sacrum, increased in intensity and extent measuring SUV max 10.2, previously 8.2 * Right T11 vertebral body, SUV max 10.5, previously 3.1 * Uptake at the inferior sternal body, increased in intensity and extent measuring SUV max 7.6, previously 3.8 Degenerative changes. Lumbar spine posterior fixation hardware. Soft Tissues: No radiotracer avid lesion. IMPRESSION (more content not included)... [facility] RADIOLOGY Provider, Marcus Wilson - 03/07/2025 * * *Final Report* * * DATE OF EXAM: Mar 07 2025 9:52AM RHP 0063 - NM PET/CT SKULL-THIGH SUBQ / PROCEDURE REASON: Malignant neoplasm of unspecified part of unspecified bronchus or lung (HCC) * * * * Physician Interpretation * * * * EXAMINATION: BODY FDG PET-CT CLINICAL HISTORY: Malignant neoplasm of unspecified part of unspecified bronchus or lung. EXAM CATEGORY: Subsequent treatment strategy. TECHNIQUE: Radiopharmaceutical was administered intravenously followed by PET imaging from the eyes to thighs. Free breathing, low dose CT of the same body region was acquired without IV contrast for attenuation correction and anatomic localization. Unenhanced imaging is limited for the evaluation of some pathology and the acquired CT was not designed to produce diagnostic CT scan quality. Physiologic/non-pathol ogic uptake in some body regions could confound or obscure some pathology. * CT Dose-Length Product (DLP): 357 mGy*cm * CT Dose Reduction Employed: Yes * Blood glucose: 143 mg/dL * Injection site: Right Forearm-Antecubital * Injected activity: 9.3 mCi * Uptake Time: 70 minutes * Radiopharmaceutical: Y72-[id number] (FDG) COMPARISON: FDG PET/CT 11/08/2024 CORRELATION: No relevant prior imaging available RESULT: REFERENCES: FDG uptake is used as a surrogate marker for glucose metabolism. All reported standardized uptake values represent maximum SUV (SUVmax) per body weight, unless otherwise specified. SUV reference values, as follows: * Blood Pool (Descending Aorta): SUVmax 1.8 * Background Liver: SUVmax 3.5; SUVmean 2.3 Localizer Images: No additional findings. HEAD AND NECK: Head: No radiotracer avid lesion or mass effect in the imaged intracranial compartment. Aerodigestive Tract: Previously noted asymmetric uptake at the right posterior nasopharynx has decreased in conspicuity. There is now relatively symmetric, likely physiologic activity bilaterally. Lymph Nodes: Resolution of tracer avid bilateral subcentimeter level 2 nodes. No radiotracer avid lymphadenopathy. Neck Soft Tissues: Redemonstrated diffuse thyroid activity. CHEST: Lungs & Pleura: Left upper lobe irregular nodular consolidation has decreased in metabolic activity and size, measuring SUV max 1.9, 1.3 x 1.2 cm (3:94), previously SUV max 3.4, 2.2 x 1.7 cm. No pleural effusion. Lymph Nodes: Although left hilar adenopathy has increased slightly in metabolic activity measuring SUV max 5.1 (previously 4.2), other thoracic nodes have decreased in metabolic activity, some also decreased in size. For example, a low periesophageal node measures SUV max 3.4, 1.3 x 1.0 cm (3:124), previously SUV max 5.8, 1.5 x 1.1 cm. Clustered low right paratracheal nodes measure SUV max 2.3, previously 4.2. Cardiovascular: Blood pool activity. No pericardial effusion. Normal heart size. Thoracic aortic and coronary artery calcifications. Chest Wall: No radiotracer avid soft tissue lesion. ABDOMEN AND PELVIS: Hepatobiliary: There are scattered foci of hypermetabolic activity, without definite correlate on CT. For example, focal uptake at the anterior left hepatic lobe measures SUV max 4.7 and focal uptake at the inferior right hepatic lobe measures SUV max 4.1. Spleen: No radiotracer avid lesion. No splenomegaly. Pancreas: No radiotracer avid lesion. Adrenals: New focal uptake at the right adrenal gland measures SUV max 6.9. Urinary Tract: Physiologic radiotracer excretion in the renal collecting systems and urinary bladder. Bilateral nonobstructing nephrolithiasis. No hydronephrosis. GI Tract: No radiotracer avid lesion. Bowel postsurgical changes. No bowel dilation. Peritoneum: No radiotracer avid lesion. No ascites. Lymph Nodes: A new tracer avid left external iliac node measures SUV max 9.1, 1.2 x 0.8 cm (3:263). Vasculature: Blood pool activity. Vascular calcifications without an abdominal aortic aneurysm. Pelvic Organs: No radiotracer avid lesion. Brachytherapy seeds within the prostate. MUSCULOSKELETAL: Bones: Multifocal metabolically active osseous metastases have increased in extent and intensity, now more diffusely involving the axial and proximal appendicular skeleton. Beef Killer areas include: * Uptake at the right femoral lesser trochanter, increased in intensity and extent measuring SUV max 8.3, previously 4.6 * Uptake at the right para midline sacrum, increased in intensity and extent measuring SUV max 10.2, previously 8.2 * Right T11 vertebral body, SUV max 10.5, previously 3.1 * Uptake at the inferior sternal body, increased in intensity and extent measuring SUV max 7.6, previously 3.8 Degenerative changes. Lumbar spine posterior fixation hardware. Soft Tissues: No radiotracer avid lesion. IM (more content not included)... [facility] Radiology Study observation (narrative) [facility] PET+CT Guidance for localiza tion of tumor of Skull base to mid-thigh-- W 18F-FDG IVOrdered By: Ccf Provider on 03-07-2025 [facility] CNOVon 02-28-2025 CNOV Normal [facility] CNPNon 02-22-2025 CNPN Normal [facility] CNPNon 02-04-2025 CNPN Normal [facility] CNOVon 01-17-2025 CNOV Normal [facility] XR LUMBAR 3V AP/LAT/L5-S1on 01-17-2025 XR LUMBAR 3V AP/LAT/L5-S1 Normal [facility] CNOVon 11-16-2024 CNOV Normal [facility] CNPNon 11-16-2024 CNPN Normal [facility] XR CHEST 2V FRONTAL/LATon XR CHEST 2V FRONTAL/LAT Normal [facility] CNPNon 11-12-2024 CNPN Normal [facility] CBC W Auto Differential pane l (Bld)on 11-11-2024 Basophils (Bld) [#/Vol] 0.06 10*3/uL Normal <0.11 [facility] Comment on above: Order Comment: Speci men Type: BLOOD SPECIMENOrdering Facility: [facility] Address: [address] [place] [address] Performed By: #### 5 7021-8 ####[facility] MILLBENWNCLIA [id number] [place] [address] [place] Basophils/100 WBC (Bld) 1.8 % Normal [facility] Comment on above: Order Comment: Speci men Type: BLOOD SPECIMENOrdering Facility: [facility] Address: [address] [place] [address] Performed By: #### 5 7021-8 ####[facility] MILLWNCLIA [id number] [place] [address] [place] Differential cell count method Nom (Bld) Auto Normal [facility] Comment on above: Order Comment: Speci men Type: BLOOD SPECIMENOrdering Facility: [facility] Address: [address] [place] [address] Performed By: #### 5 7021-8 ####[facility] MILLWNCLIA [id number] [place] [address] [place] Eosinophils (Bld) [#/Vol] 0.14 10*3/uL Normal <0.46 [facility] Comment on above: Order Comment: Speci men Type: BLOOD SPECIMENOrdering Facility: [facility] Address: [address] [place] [address] Performed By: #### 5 7021-8 ####[facility] MILLTOWNCLIA [id number] [place] [address] [place] Eosinophils/100 WBC (Bld) 4.3 % Normal [facility] Comment on above: Order Comment: Speci men Type: BLOOD SPECIMENOrdering Facility: [facility] Address: [address] [place] [address] Performed By: #### 5 7021-8 ####[facility] MILLTOWNCLIA [id number] [place] [address] [place] Erythrocyte distribution width (RBC) [Ratio] 15.4 % High 11.5-15.0 [facility] Comment on above: Order Comment: Speci men Type: BLOOD SPECIMENOrdering Facility: [facility] Address: [address] [place] [address] Performed By: #### 5 7021-8 ####[facility]ENTERMaricruz [id number] [place] [address] [place] Hematocrit (Bld) [Volume fraction] 35.3 % Low 39.0-51.0 [facility] Comment on above: Order Comment: Speci men Type: BLOOD SPECIMENOrdering Facility: [facility] Address: [address] [place] [address] Performed By: #### 5 7021-8 ####[facility] [id number] [place] [address] [place] Hemoglobin (Bld) [Mass/Vol] 11.1 g/dL Low 13.0-17.0 [facility] Comment on above: Order Comment: Speci men Type: BLOOD SPECIMENOrdering Facility: [facility] Address: [address] [place] [address] Performed By: #### 5 7021-8 ####[facility] [id number] [place] [address] [place] Immature granulocytes (Bld) [#/Vol] 0.11 10*3/uL High <0.10 [facility] Comment on above: Order Comment: Speci men Type: BLOOD SPECIMENOrdering Facility: [facility] Address: [address] [place] [address] Performed By: #### 5 7021-8 ####[facility]NCLI [id number] [place] [address] [place] Immature granulocytes/100 WBC (Bld) 3.4 % Normal [facility] Comment on above: Order Comment: Speci men Type: BLOOD SPECIMENOrdering Facility: [facility] Address: [address] [place] [address] Performed By: #### 5 7021-8 ####[facility] [id number] [place] [address] [place] Lymphocytes (Bld) [#/Vol] 0.70 10*3/uL Low 1.00-4.00 [facility] Comment on above: Order Comment: Speci men Type: BLOOD SPECIMENOrdering Facility: [facility] Address: [address] [place] [address] Performed By: #### 5 7021-8 ####[facility] [id number] [place] [address] [place] Lymphocytes/100 WBC (Bld) 21.4 % Normal [facility] Comment on above: Order Comment: Speci men Type: BLOOD SPECIMENOrdering Facility: [facility] Address: [address] [place] [address] Performed By: #### 5 7021-8 ####[facility] [id number] [place] [address] [place] MCH (RBC) [Entitic mass] 28.1 pg Normal 26.0-34.0 [facility] Comment on above: Order Comment: Speci men Type: BLOOD SPECIMENOrdering Facility: [facility] Address: [address] [place] [address] Performed By: #### 5 7021-8 ####[facility] [id number] [place] [address] [place] MCHC (RBC) [Mass/Vol] 31.4 g/dL Normal 30.5-36.0 [facility] Comment on above: Order Comment: Speci men Type: BLOOD SPECIMENOrdering Facility: [facility] Address: [address] [place] [address] Performed By: #### 5 7021-8 ####[facility] KIESHAAMANDALIA [id number] [place] [address] [place] MCV (RBC) [Entitic vol] 89.4 fL Normal 80.0-100.0 [facility] Comment on above: Order Comment: Speci men Type: BLOOD SPECIMENOrdering Facility: [facility] Address: [address] [place] [address] Performed By: #### 5 7021-8 ####[facility]CL[facility] [id number] [place] [address] [place] Monocytes (Bld) [#/Vol] 0.37 10*3/uL Normal <0.87 [facility] Comment on above: Order Comment: Speci men Type: BLOOD SPECIMENOrdering Facility: [facility] Address: [address] [place] [address] Performed By: #### 5 7021-8 ####[facility] [id number] [place] [address] [place] Monocytes/100 WBC (Bld) 11.3 % Normal [facility] Comment on above: Order Comment: Speci men Type: BLOOD SPECIMENOrdering Facility: [facility] Address: [address] [place] [address] Performed By: #### 5 7021-8 ####[facility]CL[facility] [id number] [place] [address] [place] Neutrophils (Bld) [#/Vol] 1.89 10*3/uL Normal 1.45-7.50 [facility] Comment on above: Order Comment: Speci men Type: BLOOD SPECIMENOrdering Facility: [facility] Address: [address] [place] [address] Performed By: #### 5 7021-8 ####[facility] [id number] [place] [address] [place] Neutrophils/100 WBC (Bld) 57.8 % Normal [facility] Comment on above: Order Comment: Speci men Type: BLOOD SPECIMENOrdering Facility: [facility] Address: [address] [place] [address] Performed By: #### 5 7021-8 ####[facility] [id number] [place] [address] [place] Nucleated RBC (Bld) [#/Vol] 10*3/uL Normal <0.01 [facility] Comment on above: Order Comment: Speci men Type: BLOOD SPECIMENOrdering Facility: [facility] Address: [address] [place] [address] Performed By: #### 5 7021-8 ####[facility] [id number] [place] [address] [place] Nucleated RBC/100 WBC (Bld) [Ratio] 0.0 /100 WBC Normal [facility] Comment on above: Order Comment: Speci men Type: BLOOD SPECIMENOrdering Facility: [facility] Address: [address] [place] [address] Performed By: #### 5 7021-8 ####[facility] [id number] [place] [address] [place] Platelet mean volume (Bld) [Entitic vol] 8.2 fL Low 9.0-12.7 [facility] Comment on above: Order Comment: Speci men Type: BLOOD SPECIMENOrdering Facility: [facility] Address: [address] [place] [address] Performed By: #### 5 7021-8 ####[facility] [id number] [place] [address] [place] Platelets (Bld) [#/Vol] 222 10*3/uL Normal 150-400 [facility] Comment on above: Order Comment: Speci men Type: BLOOD SPECIMENOrdering Facility: [facility] Address: [facility] [place] [address] Performed By: #### 5 7021-8 ####[facility]LLASNCA [id number] [place] [address] [place] RBC (Bld) [#/Vol] 3.95 10*6/uL Low 4.20-6.00 [facility] Comment on above: Order Comment: Speci men Type: BLOOD SPECIMENOrdering Facility: [facility] Address: [address] [place] [address] Performed By: #### 5 7021-8 ####[facility] [id number] [place] [address] [place] WBC (Bld) [#/Vol] 3.27 10*3/uL Low 3.70-11.00 [facility] Comment on above: Order Comment: Speci men Type: BLOOD SPECIMENOrdering Facility: [facility] Address: [facility] [place] [address] Performed By: #### 5 7021-8 ####[facility]ENTERA [id number] [place] [address] [place] CNOVSPon 11-11-2024 CNOVSP Normal [facility] GLUCOSE, BLOOD (POC)on 11-08 Glucose [Mass/Vol] 103 mg/dL Abnormal 74 - 99 mg/dL [facility] Comment on above: Location:[facility], [address] [place] [address], [address] The Accu-Chek Inform II glucose meter has not been approved for testing on patients receiving intensive medical intervention or therapy and results from this point of care glucose test should not be used for patient management decisions in these cases. Inaccurate results may also occur from other interfering factors, such as N-acetylcysteine (blood concentrations of greater than 5mg/dL), galactose, extremes of hematocrit (<10 or >65), or high doses of ascorbic acid (vitamin C) greater than 3mg/dL. Consider alternate testing mechanisms (e.g. core lab, blood gas instrument) in the above situations. Interpretation and review of laboratory results Abnormal [facility] [place] PET/CT SKULL-THIGH SUBQon 11-08-2024 [place] PET/CT SKULL-THIGH SUBQ * * *Final Report* * * DATE OF EXAM: Nov 08 2024 12:07PM MDP 0063 - NM PET/CT SKULL-THIGH SUBQ / PROCEDURE REASON: multiple diagnoses * * * * Physician Interpretation * * * * EXAMINATION: BODY FDG PET-CT CLINICAL HISTORY: Lung cancer metastatic to bone. EXAM CATEGORY: Subsequent treatment strategy. TECHNIQUE: Radiopharmaceutical was administered intravenously followed by PET imaging from the eyes to thighs. Free breathing, low dose CT of the same body region was acquired without IV contrast for attenuation correction and anatomic localization. Unenhanced imaging is limited for the evaluation of some pathology and the acquired CT was not designed to produce diagnostic CT scan quality. Physiologic/non-pathol ogic uptake in some body regions could confound or obscure some pathology. * CT Dose-Length Product (DLP): 397 mGy*cm * CT Dose Reduction Employed: Yes * Blood glucose: 103 mg/dL * Injection site: Right Forearm-Antecubital * Injected activity: 14.9 mCi * Uptake Time: 54 minutes * Radiopharmaceutical: [id number]-[id number] (FDG) COMPARISON: FDG PET/CT 05/31/2024 CORRELATION: No relevant prior imaging available RESULT: REFERENCES: FDG uptake is used as a surrogate marker for glucose metabolism. All reported standardized uptake values represent maximum SUV (SUVmax) per body weight, unless otherwise specified. SUV reference values, as follows: * Blood Pool (Descending Aorta): SUVmax 2.7 * Background Liver: SUVmax 3.5; SUVmean 2.4 Localizer Images: No additional findings. HEAD AND NECK: Head: No radiotracer avid lesion or mass effect in the imaged intracranial compartment. Partially imaged cranial postsurgical changes. Aerodigestive Tract: Asymmetric uptake at the right posterior nasopharynx measures SUV max 4.1 Lymph Nodes: New tracer avid bilateral subcentimeter level 2 nodes, for example measuring SUV max 4.2 on the right and SUV max 3.6 on the left. Neck Soft Tissues: Redemonstrated diffuse thyroid activity. CHEST: Lungs and Pleura: New tracer avid left upper lobe irregular nodular consolidation measures SUV max 3.4, 2.2 x 1.7 cm (3:107). No pleural effusion. Lymph Nodes: Tracer avid mediastinal and hilar nodes have overall increased in intensity, some also increased in size. For example, a low periesophageal node measures SUV max 5.8, 1.5 x 1.1 cm (3:140), previously SUV max 3.2, 1.2 x 1.0 cm. Clustered low right paratracheal nodes measure SUV max 4.2, previously SUV max 3.2. Right hilar uptake measures SUV max 3.9, previously SUV max 3.1. Anterior left hilar uptake measures SUV max 4.2, previously SUV max 2.8. Cardiovascular: Blood pool activity. No pericardial effusion. Normal heart size. Thoracic aortic and coronary artery calcifications. Chest Wall: No radiotracer avid soft tissue lesion. ABDOMEN AND PELVIS: Hepatobiliary: No radiotracer avid lesion. No measurable mass. Spleen: No radiotracer avid lesion. No splenomegaly. Pancreas: No radiotracer avid lesion. Adrenals: No radiotracer avid nodule. Urinary Tract: Physiologic radiotracer excretion in the renal collecting systems and urinary bladder. Bilateral nonobstructing nephrolithiasis. No hydronephrosis. GI Tract: No radiotracer avid lesion. No bowel dilation. Peritoneum: No radiotracer avid lesion. No ascites. Lymph Nodes: No radiotracer avid lymphadenopathy. Vasculature: Blood pool activity. Vascular calcifications without an abdominal aortic aneurysm. Pelvic Organs: No radiotracer avid lesion. High density markers or seeds within the prostate gland. MUSCULOSKELETAL: Bones: Progressive multifocal metabolically avid osseous metastases, with evidence of both new and worsening lesions. Examples include: * Left femoral lesion at the level of the lesser trochanter, SUV max 9.5, previously 5.3 * Superior right iliac wing, SUV max 10.8, previously 4.3 * Paramidline sacrum, SUV max 8.2, previously 6.5 * New uptake at T8, SUV max 4.7 Degenerative changes. Lumbar spine posterior fixation hardware. Soft Tissues: Previously noted cutaneous uptake at the midline upper back has resolved and was likely inflammatory. IMPRESSION Since 05/31/2024, PRIMARY DISEASE SITE: * New metabolically active left upper lobe irregular nodular consolidation, may represent recurrent malignancy. XAVI DISEASE: * Metabolically active mediastinal and hilar nodes have overall increased in intensity, some also increased in size.. METASTATIC DISEASE: * Progressive multifocal metabolically avid osseous metastases, with evidence of both new and worsening lesions. ADDITIONAL FINDINGS: * Asymmetric right posterior nasopharyngeal activity, nonspecific and may be benign/reactive. Attention on follow-up versus further evaluation with laryngoscopy recommended. * New metabolically active subcentimeter bilateral level 2 nodes, nonspecific and may be benign/reactive given nasopharynge (more content not included)... Normal [facility] CBC W Auto Differential pane l (Bld)on 11-03-2024 Basophils (Bld) [#/Vol] 0.08 10*3/uL Normal <0.11 [facility] Comment on above: Order Comment: Speci men Type: BLOOD SPECIMENOrdering Facility: [facility] Address: [address] [place] [address] Performed By: #### 5 7021-8 ####[facility] [id number] [place] [address] [place] Basophils/100 WBC (Bld) 1.1 % Normal [facility] Comment on above: Order Comment: Speci men Type: BLOOD SPECIMENOrdering Facility: [facility] Address: [address] [place] [address] Performed By: #### 5 7021-8 ####[facility] [id number] [place] [address] [place] Differential cell count method Nom (Bld) Auto Normal [facility] Comment on above: Order Comment: Speci men Type: BLOOD SPECIMENOrdering Facility: [facility] Address: [address] [place] [address] Performed By: #### 5 7021-8 ####[facility] [id number] [place] [address] [place] Eosinophils (Bld) [#/Vol] 0.17 10*3/uL Normal <0.46 [facility] Comment on above: Order Comment: Speci men Type: BLOOD SPECIMENOrdering Facility: [facility] Address: [address] [place] [address] Performed By: #### 5 7021-8 ####[facility] [id number] [place] [address] [place] Eosinophils/100 WBC (Bld) 2.3 % Normal [facility] Comment on above: Order Comment: Speci men Type: BLOOD SPECIMENOrdering Facility: [facility] Address: [address] [place] [address] Performed By: #### 5 7021-8 ####[facility] [id number] [place] [address] [place] Erythrocyte distribution width (RBC) [Ratio] 15.8 % High 11.5-15.0 [facility] Comment on above: Order Comment: Speci men Type: BLOOD SPECIMENOrdering Facility: [facility] Address: [address] [place] [address] Performed By: #### 5 7021-8 ####[facility] [id number] [place] [address] [place] Hematocrit (Bld) [Volume fraction] 37.6 % Low 39.0-51.0 [facility] Comment on above: Order Comment: Speci men Type: BLOOD SPECIMENOrdering Facility: [facility] Address: [address] [place] [address] Performed By: #### 5 7021-8 ####[facility] [id number] [place] [address] [place] Hemoglobin (Bld) [Mass/Vol] 11.9 g/dL Low 13.0-17.0 [facility] Comment on above: Order Comment: Speci men Type: BLOOD SPECIMENOrdering Facility: [facility] Address: [address] [place] [address] Performed By: #### 5 7021-8 ####[facility] MILLTOWNCLIA [id number] [place] [address] [place] Immature granulocytes (Bld) [#/Vol] 0.14 10*3/uL High <0.10 [facility] Comment on above: Order Comment: Speci men Type: BLOOD SPECIMENOrdering Facility: [facility] Address: [address] [place] [address] Performed By: #### 5 7021-8 ####[facility] MILLWNCLIA [id number] [place] [address] [place] Immature granulocytes/100 WBC (Bld) 1.9 % Normal [facility] Comment on above: Order Comment: Speci men Type: BLOOD SPECIMENOrdering Facility: [facility] Address: [address] [place] [address] Performed By: #### 5 7021-8 ####[facility] [id number] [place] [address] [place] Lymphocytes (Bld) [#/Vol] 1.17 10*3/uL Normal 1.00-4.00 [facility] Comment on above: Order Comment: Speci men Type: BLOOD SPECIMENOrdering Facility: [facility] Address: [address] [place] [address] Performed By: #### 5 7021-8 ####[facility] MILLTOWNCLIA [id number] [place] [address] [place] Lymphocytes/100 WBC (Bld) 15.6 % Normal [facility] Comment on above: Order Comment: Speci men Type: BLOOD SPECIMENOrdering Facility: [facility] Address: [address] [place] [address] Performed By: #### 5 7021-8 ####[facility] MILLWNCLIA [id number] [place] [address] [place] MCH (RBC) [Entitic mass] 27.9 pg Normal 26.0-34.0 [facility] Comment on above: Order Comment: Speci men Type: BLOOD SPECIMENOrdering Facility: [facility] Address: [address] [place] [address] Performed By: #### 5 7021-8 ####[facility] [id number] [place] [address] [place] MCHC (RBC) [Mass/Vol] 31.6 g/dL Normal 30.5-36.0 [facility] Comment on above: Order Comment: Speci men Type: BLOOD SPECIMENOrdering Facility: [facility] Address: [address] [place] [address] Performed By: #### 5 7021-8 ####[facility] P[facility]LLASNCMaricruz [id number] [address] [place] MCV (RBC) [Entitic vol] 88.3 fL Normal 80.0-100.0 [facility] Comment on above: Order Comment: Speci men Type: BLOOD SPECIMENOrdering Facility: [facility] Address: [address] [place] [address] Performed By: #### 5 7021-8 ####[facility] P[facility]LLASNCRAJEEV [id number] [place] [address] [place] Monocytes (Bld) [#/Vol] 0.51 10*3/uL Normal <0.87 [facility] Comment on above: Order Comment: Speci men Type: BLOOD SPECIMENOrdering Facility: [facility] Address: [address] [place] [address] Performed By: #### 5 7021-8 ####[facility]LLASNCLI [id number] [place] [address] [place] Monocytes/100 WBC (Bld) 6.8 % Normal [facility] Comment on above: Order Comment: Speci men Type: BLOOD SPECIMENOrdering Facility: [facility] Address: [address] [place] [address] Performed By: #### 5 7021-8 ####[facility] KIESHAAMANDALIA [id number] [place] [address] [place] Neutrophils (Bld) [#/Vol] 5.42 10*3/uL Normal 1.45-7.50 [facility] Comment on above: Order Comment: Speci men Type: BLOOD SPECIMENOrdering Facility: [facility] Address: [address] [place] [address] Performed By: #### 5 7021-8 ####[facility] [id number] [place] [address] [place] Neutrophils/100 WBC (Bld) 72.3 % Normal [facility] Comment on above: Order Comment: Speci men Type: BLOOD SPECIMENOrdering Facility: [facility] Address: [address] [place] [address] Performed By: #### 5 7021-8 ####[facility]A [id number] [place] [address] [place] Nucleated RBC (Bld) [#/Vol] 10*3/uL Normal <0.01 [facility] Comment on above: Order Comment: Speci men Type: BLOOD SPECIMENOrdering Facility: [facility] Address: [address] [place] [address] Performed By: #### 5 7021-8 ####[facility]LL[facility]NCL[facility] [id number] [place] [address] [place] Nucleated RBC/100 WBC (Bld) [Ratio] 0.0 /100 WBC Normal [facility] Comment on above: Order Comment: Speci men Type: BLOOD SPECIMENOrdering Facility: [facility] Address: [address] [place] [address] Performed By: #### 5 7021-8 ####[facility] MILLBENWNCLIA [id number] [place] [address] [place] Platelet mean volume (Bld) [Entitic vol] 7.6 fL Low 9.0-12.7 [facility] Comment on above: Order Comment: Speci men Type: BLOOD SPECIMENOrdering Facility: [facility] Address: [address] [place], [place] [address] Performed By: #### 5 7021-8 ####[facility] KIESHAWDENITALIA [id number] [place] [address] [place] Platelets (Bld) [#/Vol] 288 10*3/uL Normal 150-400 [facility] Comment on above: Order Comment: Speci men Type: BLOOD SPECIMENOrdering Facility: [facility] Address: [address] [place], [place] [address] Performed By: #### 5 7021-8 ####[facility] KIESHAWDENITALIA [id number] [place] [address] [place] RBC (Bld) [#/Vol] 4.26 10*6/uL Normal 4.20-6.00 [facility] Comment on above: Order Comment: Speci men Type: BLOOD SPECIMENOrdering Facility: [facility] Address: [address] [place] [address] Performed By: #### 5 7021-8 ####[facility] YENIFERWNCLIA [id number] [place] [address] [place] WBC (Bld) [#/Vol] 7.49 10*3/uL Normal 3.70-11.00 [facility] Comment on above: Order Comment: Speci men Type: BLOOD SPECIMENOrdering Facility: [facility] Address: [address] [place], [place] [address] Performed By: #### 5 7021-8 ####[facility] CENTERNCLIA [id number] [place] [address] [place] CNOVSPon 11-03-2024 CNOVSP Normal [facility] Comprehensive metabolic 2000 panelon 11-03-2024 Albumin [Mass/Vol] 4.2 g/dL Normal 3.9-4.9 [facility] Comment on above: Order Comment: Speci men Type: BLOOD SPECIMENOrdering Facility: [facility] Address: [address] [place] [address] Performed By: #### 2 4323-8 ####[facility] MILLNEW HOPENCLIA [id number] [place] [address] [place] ALP [Catalytic activity/Vol] 110 U/L Normal 38-113 [facility] Comment on above: Order Comment: Speci men Type: BLOOD SPECIMENOrdering Facility: [facility] Address: [address] [place] [address] Performed By: #### 2 4323-8 ####[facility] [id number] [place] [address] [place] ALT [Catalytic activity/Vol] 25 U/L Normal 10-54 [facility] Comment on above: Order Comment: Speci men Type: BLOOD SPECIMENOrdering Facility: [facility] Address: [address] [place] [address] Performed By: #### 2 4323-8 ####[facility] P[facility]LLASNCLIA [id number] [place] [address] [place] Anion gap [Moles/Vol] 8 mmol/L Normal 8-15 [facility] Comment on above: Order Comment: Speci men Type: BLOOD SPECIMENOrdering Facility: [facility] Address: [address] [place] [address] Performed By: #### 2 4323-8 ####[facility] PINELLASNCLIA [id number] [place] [address] [place] AST [Catalytic activity/Vol] 20 U/L Normal 14-40 [facility] Comment on above: Order Comment: Speci men Type: BLOOD SPECIMENOrdering Facility: [facility] Address: [address] [place] [address] Performed By: #### 2 4323-8 ####[facility] HOSPITALWNCLIA [id number] [place] [address] [place] Bilirubin [Mass/Vol] 0.2 mg/dL Normal 0.2-1.3 [facility] Comment on above: Order Comment: Speci men Type: BLOOD SPECIMENOrdering Facility: [facility] Address: [address] [place] [address] Performed By: #### 2 4323-8 ####[facility]LLASNCLIA [id number] [place] [address] [place] Calcium [Mass/Vol] 10.0 mg/dL Normal 8.5-10.2 [facility] Comment on above: Order Comment: Speci men Type: BLOOD SPECIMENOrdering Facility: [facility] Address: [address] [place] [address] Performed By: #### 2 4323-8 ####[facility] P[facility]LLASNCLIA [id number] [place] [address] [place] Chloride [Moles/Vol] 103 mmol/L Normal 98-107 [facility] Comment on above: Order Comment: Speci men Type: BLOOD SPECIMENOrdering Facility: [facility] Address: [address] [place] [address] Performed By: #### 2 4323-8 ####[facility]LLASNCLIA [id number] [place] [address] [place] CO2 [Moles/Vol] 29 mmol/L Normal 22-30 [facility] Comment on above: Order Comment: Speci men Type: BLOOD SPECIMENOrdering Facility: [facility] Address: [address] [place] [address] Performed By: #### 2 4323-8 ####[facility] KIESHANEW HOPEDENITAGARFIELD MEMORIAL [facility]PITAL [id number] [address] [place] Creatinine [Mass/Vol] 0.75 mg/dL Normal 0.73-1.22 [facility] Comment on above: Order Comment: Speci men Type: BLOOD SPECIMENOrdering Facility: [facility] Address: [address] [place] [address] Performed By: #### 2 4323-8 ####[facility] [id number] [place] [address] [place] Creatinine and Glomerular filtration rate.predicted panel (S/P/Bld) 101 mL/min/1.73m??? Normal >=60 [facility] Comment on above: Order Comment: Fatoui men Type: BLOOD SPECIMENOrdering Facility: [facility] Address: [address] [place] [address] Result Comment: Kisha mated Glomerular Filtration Rate (eGFR) is calculated using the 2020 CKD-EPI creatinine equation. This equation utilizes serum creatinine, sex, and age as parameters. The creatinine assay has traceable calibration to isotope dilution-mass spectrometry. Refer to KDIGO guidelines for clinical interpretation. In patients with unstable renal function, e.g. those with acute kidney injury, the eGFR may not accurately reflect actual GFR. Performed By: #### 2 4323-8 ####[facility] [id number] [place] [address] [place] Glucose [Mass/Vol] 138 mg/dL High 74-99 [facility] Comment on above: Order Comment: Speci men Type: BLOOD SPECIMENOrdering Facility: [facility] Address: [address] [place] [address] Result Comment: The [place] Diabetes Association (ADA) provides guidance for cutoff values for fasting glucose and random glucose. The ADA defines fasting as no caloric intake for at least 8 hours. Fasting plasma glucose results between 100 to 125 mg/dL indicate increased risk for diabetes (prediabetes).Fasting plasma glucose results greater than or equal to 126 mg/dL meet the criteria for diagnosis of diabetes. In the absence of unequivocal hyperglycemia, results should be confirmed by repeat testing. In a patient with classic symptoms of hyperglycemia or hyperglycemic crisis, random plasma glucose results greater than or equal to 200 mg/dL meet the criteria for diagnosis of diabetes.Reference: Standards of Medical Care in Diabetes 2016, [place] Diabetes Association. Diabetes Care. 2016.39(Suppl 1). Performed By: #### 2 4323-8 ####[facility] HOSPITALWHILIA [id number] [place] [address] [place] Potassium [Moles/Vol] 4.0 mmol/L Normal 3.7-5.1 [facility] Comment on above: Order Comment: Speci men Type: BLOOD SPECIMENOrdering Facility: [facility] Address: [address] [place] [address] Performed By: #### 2 4323-8 ####[facility]A [id number] [place] [address] [place] Protein [Mass/Vol] 6.8 g/dL Normal 6.3-8.0 [facility] Comment on above: Order Comment: Fatoui men Type: BLOOD SPECIMENOrdering Facility: [facility] Address: [address] [place] [address] Performed By: #### 2 4323-8 ####[facility] [id number] [place] [address] [place] Sodium [Moles/Vol] 140 mmol/L Normal 136-144 [facility] Comment on above: Order Comment: Speci men Type: BLOOD SPECIMENOrdering Facility: [facility] Address: [address] [place] [address] Performed By: #### 2 4323-8 ####[facility] [id number] [place] [address] [place] Urea nitrogen [Mass/Vol] 9 mg/dL Normal 9-24 [facility] Comment on above: Order Comment: Speci men Type: BLOOD SPECIMENOrdering Facility: [facility] Address: [address] [place] [address] Performed By: #### 2 4323-8 ####[facility] P[facility]LLASNCLIA [id number] [place] [address] [place] CNPNon 10-21-2024 CNPN Normal [facility] CBC W Auto Differential pane l (Bld)on 10-14-2024 Basophils (Bld) [#/Vol] 0.12 10*3/uL High <0.11 [facility] Comment on above: Order Comment: Speci men Type: BLOOD SPECIMENOrdering Facility: [facility] Address: [address] [place] [address] Performed By: #### 5 7021-8 ####[facility] HOSPITALWNCLIA [id number] [address] LABORATORYCLIA [id number] [place] [address] [place] Basophils/100 WBC (Bld) 2.0 % Normal [facility] Comment on above: Order Comment: Speci men Type: BLOOD SPECIMENOrdering Facility: [facility] Address: [address] [place] [address] Performed By: #### 5 7021-8 ####[facility] P[facility]LLASNCLIA [id number] [address] LABORATORYCLIA [id number] [place] [address] [place] Dacrocytes LM Ql (Bld) Few Normal [facility] Comment on above: Order Comment: Speci men Type: BLOOD SPECIMENOrdering Facility: [facility] Address: [address] [place] [address] Performed By: #### 5 7021-8 ####[facility]ITALOST[facility] MILLTOWNCLIA [id number] [address] LABORATORYCLIA [id number] [place] [address] [place] Differential cell count method Nom (Bld) Manual Normal [facility] Comment on above: Order Comment: Speci men Type: BLOOD SPECIMENOrdering Facility: [facility] Address: [address] [place] [address] Performed By: #### 5 7021-8 ####[facility] MILLWNCLIA [id number] [address] LABORATORYCLIA [id number] [place] [address] [place] Eosinophils (Bld) [#/Vol] 0.18 10*3/uL Normal <0.46 [facility] Comment on above: Order Comment: Speci men Type: BLOOD SPECIMENOrdering Facility: [facility] Address: [address] [place] [address] Performed By: #### 5 7021-8 ####[facility] HOSPITALWNCLIA [id number] [address] LABORATORYCLIA [id number] [place] [address] [place] Eosinophils/100 WBC (Bld) 3.0 % Normal [facility] Comment on above: Order Comment: Speci men Type: BLOOD SPECIMENOrdering Facility: [facility] Address: [address] [place] [address] Performed By: #### 5 7021-8 ####[facility] MILLWNCLIA [id number] [address] LABORATORYCLIA [id number] [place] [address] [place] Erythrocyte distribution width (RBC) [Ratio] 14.7 % Normal 11.5-15.0 [facility] Comment on above: Order Comment: Speci men Type: BLOOD SPECIMENOrdering Facility: [facility] Address: [address] [place] [address] Performed By: #### 5 7021-8 ####[facility] HOSPITALWNCLIA [id number] [address] LABORATORYCLIA [id number] [place] [address] [place] Hematocrit (Bld) [Volume fraction] 37.4 % Low 39.0-51.0 [facility] Comment on above: Order Comment: Speci men Type: BLOOD SPECIMENOrdering Facility: [facility] Address: [address] [place] [address] Performed By: #### 5 7021-8 ####[facility] [id number] [address] LABORATORYCLIA [id number] [place] [address] [place] Hemoglobin (Bld) [Mass/Vol] 12.2 g/dL Low 13.0-17.0 [facility] Comment on above: Order Comment: Speci men Type: BLOOD SPECIMENOrdering Facility: [facility] Address: [address] [place] [address] Performed By: #### 5 7021-8 ####[facility] [id number] [address] LABORATORYIA [id number] [place] [address] [place] Lymphocytes (Bld) [#/Vol] 1.17 10*3/uL Normal 1.00-4.00 [facility] Comment on above: Order Comment: Speci men Type: BLOOD SPECIMENOrdering Facility: [facility] Address: [address] [place] [address] Performed By: #### 5 7021-8 ####[facility] MILLTOWNCLIA [id number] [address] LABORATORYCLIA [id number] [address] [place] Lymphocytes/100 WBC (Bld) 19.0 % Normal [facility] Comment on above: Order Comment: Speci men Type: BLOOD SPECIMENOrdering Facility: [facility] Address: [address] [place] [address] Performed By: #### 5 7021-8 ####[facility] MILLTOWNCLIA [id number] [address] LABORATORYCLIA [id number] [place] [address] [place] MCH (RBC) [Entitic mass] 28.4 pg Normal 26.0-34.0 [facility] Comment on above: Order Comment: Speci men Type: BLOOD SPECIMENOrdering Facility: [facility] Address: [address] [place] [address] Performed By: #### 5 7021-8 ####[facility] KIESHATOWNCLIA [id number] [address] LABORATORYCLIA [id number] [place] [address] [place] MCHC (RBC) [Mass/Vol] 32.6 g/dL Normal 30.5-36.0 [facility] Comment on above: Order Comment: Speci men Type: BLOOD SPECIMENOrdering Facility: [facility] Address: [address] [place] [address] Performed By: #### 5 7021-8 ####[facility] MILLTOWNCLIA [id number] [address] LABORATORYCLIA [id number] [place] [address] [place] MCV (RBC) [Entitic vol] 87.2 fL Normal 80.0-100.0 [facility] Comment on above: Order Comment: Speci men Type: BLOOD SPECIMENOrdering Facility: [facility] Address: [address] [place] [address] Performed By: #### 5 7021-8 ####[facility] MILLWNCLIA [id number] [address] LABORATORYCLIA [id number] [place] [address] [place] Metamyelocytes/100 WBC (Bld) 3.0 % Normal [facility] Comment on above: Order Comment: Speci men Type: BLOOD SPECIMENOrdering Facility: [facility] Address: [address] [place] [address] Performed By: #### 5 7021-8 ####[facility] HOSPITALWNCLIA [id number] [address] LABORATORYCLIA [id number] [place] [address] [place] Monocytes (Bld) [#/Vol] 0.31 10*3/uL Normal <0.87 [facility] Comment on above: Order Comment: Speci men Type: BLOOD SPECIMENOrdering Facility: [facility] Address: [address] [place] [address] Performed By: #### 5 7021-8 ####[facility] MILLTOWNCLIA [id number] [address] LABORATORYCLIA [id number] [place] [address] [place] Monocytes/100 WBC (Bld) 5.0 % Normal [facility] Comment on above: Order Comment: Speci men Type: BLOOD SPECIMENOrdering Facility: [facility] Address: [address] [place] [address] Performed By: #### 5 7021-8 ####[facility] MILLTOWNCLIA [id number] [address] LABORATORYCLIA [id number] [place] [address] [place] MYELO% 1.0 % Normal [facility] Comment on above: Order Comment: Speci men Type: BLOOD SPECIMENOrdering Facility: [facility] Address: [address] [place] [address] Performed By: #### 5 7021-8 ####[facility] HOSPITALWNCLIA [id number] [address] LABORATORYCLIA [id number] [place] [address] [place] Neutrophils (Bld) [#/Vol] 4.13 10*3/uL Normal 1.45-7.50 [facility] Comment on above: Order Comment: Speci men Type: BLOOD SPECIMENOrdering Facility: [facility] Address: [address] [place] [address] Performed By: #### 5 7021-8 ####[facility] HOSPITALTOWNCLIA [id number] [address] LABORATORYCLIA [id number] [place] [address] [place] Neutrophils/100 WBC (Bld) 67.0 % Normal [facility] Comment on above: Order Comment: Speci men Type: BLOOD SPECIMENOrdering Facility: [facility] Address: [address] [place] [address] Performed By: #### 5 7021-8 ####[facility] MILLTOWNCLIA [id number] [address] LABORATORYCLIA [id number] [place] [address] [place] Nucleated RBC (Bld) [#/Vol] 10*3/uL Normal <0.01 [facility] Comment on above: Order Comment: Speci men Type: BLOOD SPECIMENOrdering Facility: [facility] Address: [address] [place] [address] Performed By: #### 5 7021-8 ####[facility] HOSPITALWHILIA [id number] [address] LABORATORYCLIA [id number] [place] [address] [place] Nucleated RBC/100 WBC (Bld) [Ratio] 0.0 /100 WBC Normal [facility] Comment on above: Order Comment: Speci men Type: BLOOD SPECIMENOrdering Facility: [facility] Address: [address] [place] [address] Performed By: #### 5 7021-8 ####[facility]ENTERA [id number] [address] LABORATORYCLIA [id number] [place] [address] [place] Ovalocytes LM Ql (Bld) Few Normal [facility] Comment on above: Order Comment: Speci men Type: BLOOD SPECIMENOrdering Facility: [facility] Address: [address] [place] [address] Performed By: #### 5 7021-8 ####[facility]EL[facility] [id number] [address] LABORATORYCLIA [id number] [place] [address] [place] Platelet mean volume (Bld) [Entitic vol] 8.2 fL Low 9.0-12.7 [facility] Comment on above: Order Comment: Speci men Type: BLOOD SPECIMENOrdering Facility: [facility] Address: [address] [place] [address] Performed By: #### 5 7021-8 ####[facility] MILLTOWNCLIA [id number] [address] LABORATORYCLIA [id number] [place] [address] [place] Platelets (Bld) [#/Vol] 288 10*3/uL Normal 150-400 [facility] Comment on above: Order Comment: Speci men Type: BLOOD SPECIMENOrdering Facility: [facility] Address: [address] [place] [address] Performed By: #### 5 7021-8 ####[facility] [id number] [address] LABORATORYCLIA [id number] [place] [address] [place] Platelets Estimate (Bld) [#/Vol] Adequate Normal [facility] Comment on above: Order Comment: Speci men Type: BLOOD SPECIMENOrdering Facility: [facility] Address: [address] [place] [address] Performed By: #### 5 7021-8 ####[facility] HOSPITALWNCLIA [id number] [address] LABORATORYCLIA [id number] [place] [address] [place] Polychromasia LM Ql (Bld) Slight Normal [facility] Comment on above: Order Comment: Speci men Type: BLOOD SPECIMENOrdering Facility: [facility] Address: [address] [place] [address] Performed By: #### 5 7021-8 ####[facility] HOSPITALTOWNCLIA [id number] [address] LABORATORYCLIA [id number] [place] [address] [place] RBC (Bld) [#/Vol] 4.29 10*6/uL Normal 4.20-6.00 [facility] Comment on above: Order Comment: Speci men Type: BLOOD SPECIMENOrdering Facility: [facility] Address: [address] [place] [address] Performed By: #### 5 7021-8 ####[facility] MILLTOWNCLIA [id number] [address] LABORATORYCLIA [id number] [place] [address] [place] RED CELL MORPH Reviewed: see result s of individual morphologies Normal [facility] Comment on above: Order Comment: Speci men Type: BLOOD SPECIMENOrdering Facility: [facility] Address: [address] [place] [address] Performed By: #### 5 7021-8 ####[facility] HOSPITALWNCLIA [id number] [address] LABORATORYCLIA [id number] [place] [address] [place] WBC (Bld) [#/Vol] 6.16 10*3/uL Normal 3.70-11.00 [facility] Comment on above: Order Comment: Speci men Type: BLOOD SPECIMENOrdering Facility: [facility] Address: [address] [place] [address] Performed By: #### 5 7021-8 ####[facility] HOSPITALWNCLIA [id number] [address] LABORATORYCLIA [id number] [address] [place] WBC Left Shift Ql (Bld) Present Normal [facility] Comment on above: Order Comment: Speci men Type: BLOOD SPECIMENOrdering Facility: [facility] Address: [address] [place] [address] Performed By: #### 5 7021-8 ####[facility] PINELLASNCYOHANAA [id number] [address] LABORATORYCLIA [id number] [address] CBC W Auto Differential pane l (Bld)on 10-06-2024 Basophils (Bld) [#/Vol] 0.09 10*3/uL Normal <0.11 [facility] Comment on above: Order Comment: Speci men Type: BLOOD SPECIMENOrdering Facility: [facility] Address: [address] [place] [address] Performed By: #### 5 7021-8 ####[facility] PINELLASNCA [id number] [place] [address] [place] Basophils/100 WBC (Bld) 1.9 % Normal [facility] Comment on above: Order Comment: Speci men Type: BLOOD SPECIMENOrdering Facility: [facility] Address: [address] [place] [address] Performed By: #### 5 7021-8 ####[facility] PINELLASNCLIA [id number] [place] [address] [place] [facility] Differential cell count method Nom (Bld) Auto Normal [facility] Comment on above: Order Comment: Speci men Type: BLOOD SPECIMENOrdering Facility: [facility] Address: [address] [place] [address] Performed By: #### 5 7021-8 ####[facility] PINELLASNCA [id number] [place] [address] [place] Eosinophils (Bld) [#/Vol] 0.19 10*3/uL Normal <0.46 [facility] Comment on above: Order Comment: Speci men Type: BLOOD SPECIMENOrdering Facility: [facility] Address: [address] [place] [address] Performed By: #### 5 7021-8 ####[facility] MIGUEL [id number] [place] [address] [place] Eosinophils/100 WBC (Bld) 4.0 % Normal [facility] Comment on above: Order Comment: Speci men Type: BLOOD SPECIMENOrdering Facility: [facility] Address: [address] [place] [address] Performed By: #### 5 7021-8 ####[facility] KIESHANEW HOPENCYOHANAMaricruz [id number] [place] [address] [place] Erythrocyte distribution width (RBC) [Ratio] 15.4 % High 11.5-15.0 [facility] Comment on above: Order Comment: Speci men Type: BLOOD SPECIMENOrdering Facility: [facility] Address: [address] [place] [address] Performed By: #### 5 7021-8 ####[facility] P[facility]LLASNCYOHANAA [id number] [place] [address] [place] Hematocrit (Bld) [Volume fraction] 39.6 % Normal 39.0-51.0 [facility] Comment on above: Order Comment: Speci men Type: BLOOD SPECIMENOrdering Facility: [facility] Address: [address] [place] [address] Performed By: #### 5 7021-8 ####[facility] P[facility]LLASNCLIA [id number] [place] [address] [place] Hemoglobin (Bld) [Mass/Vol] 13.2 g/dL Normal 13.0-17.0 [facility] Comment on above: Order Comment: Speci men Type: BLOOD SPECIMENOrdering Facility: [facility] Address: [address] [place] [address] Performed By: #### 5 7021-8 ####[facility] MILLWNCLIA [id number] [place] [address] [place] Immature granulocytes (Bld) [#/Vol] 0.06 10*3/uL Normal <0.10 [facility] Comment on above: Order Comment: Speci men Type: BLOOD SPECIMENOrdering Facility: [facility] Address: [address] [place] [address] Performed By: #### 5 7021-8 ####[facility]CAREL[facility] [id number] [place] [address] [place] Immature granulocytes/100 WBC (Bld) 1.3 % Normal [facility] Comment on above: Order Comment: Speci men Type: BLOOD SPECIMENOrdering Facility: [facility] Address: [address] [place] [address] Performed By: #### 5 7021-8 ####[facility]ENTERA [id number] [place] [address] [place] Lymphocytes (Bld) [#/Vol] 1.00 10*3/uL Normal 1.00-4.00 [facility] Comment on above: Order Comment: Speci men Type: BLOOD SPECIMENOrdering Facility: [facility] Address: [address] [place] [address] Performed By: #### 5 7021-8 ####[facility]ENTERA [id number] [place] [address] [place] Lymphocytes/100 WBC (Bld) 21.1 % Normal [facility] Comment on above: Order Comment: Speci men Type: BLOOD SPECIMENOrdering Facility: [facility] Address: [address] [place] [address] Performed By: #### 5 7021-8 ####[facility]ALTHCARELI [id number] [place] [address] [place] MCH (RBC) [Entitic mass] 28.4 pg Normal 26.0-34.0 [facility] Comment on above: Order Comment: Speci men Type: BLOOD SPECIMENOrdering Facility: [facility] Address: [address] [place] [address] Performed By: #### 5 7021-8 ####[facility]LL[facility]NCGAR[facility] [id number] [place] [address] [place] MCHC (RBC) [Mass/Vol] 33.3 g/dL Normal 30.5-36.0 [facility] Comment on above: Order Comment: Speci men Type: BLOOD SPECIMENOrdering Facility: [facility] Address: [address] [place], [place] [address] Performed By: #### 5 7021-8 ####[facility] [id number] [place] [address] [place] MCV (RBC) [Entitic vol] 85.2 fL Normal 80.0-100.0 [facility] Comment on above: Order Comment: Speci men Type: BLOOD SPECIMENOrdering Facility: [facility] Address: [address] [place] [address] Performed By: #### 5 7021-8 ####[facility] [id number] [place] [address] [place] Monocytes (Bld) [#/Vol] 0.46 10*3/uL Normal <0.87 [facility] Comment on above: Order Comment: Speci men Type: BLOOD SPECIMENOrdering Facility: [facility] Address: [address] [place] [address] Performed By: #### 5 7021-8 ####[facility] [id number] [place] [address] [place] Monocytes/100 WBC (Bld) 9.7 % Normal [facility] Comment on above: Order Comment: Speci men Type: BLOOD SPECIMENOrdering Facility: [facility] Address: [address] [place] [address] Performed By: #### 5 7021-8 ####[facility] KIESHATOWNCLIA [id number] [place] [address] [place] Neutrophils (Bld) [#/Vol] 2.93 10*3/uL Normal 1.45-7.50 [facility] Comment on above: Order Comment: Speci men Type: BLOOD SPECIMENOrdering Facility: [facility] Address: [address] [place] [address] Performed By: #### 5 7021-8 ####[facility] MILLWNCLIA [id number] [place] [address] [place] Neutrophils/100 WBC (Bld) 62.0 % Normal [facility] Comment on above: Order Comment: Speci men Type: BLOOD SPECIMENOrdering Facility: [facility] Address: [address] [place] [address] Performed By: #### 5 7021-8 ####[facility] KIESHAWNCLIA [id number] [place] [address] [place] Nucleated RBC (Bld) [#/Vol] 10*3/uL Normal <0.01 [facility] Comment on above: Order Comment: Speci men Type: BLOOD SPECIMENOrdering Facility: [facility] Address: [address] [place] [address] Performed By: #### 5 7021-8 ####[facility] MILLTOWNCLIA [id number] [place] [address] [place] Nucleated RBC/100 WBC (Bld) [Ratio] 0.0 /100 WBC Normal [facility] Comment on above: Order Comment: Speci men Type: BLOOD SPECIMENOrdering Facility: [facility] Address: [address] [place] [address] Performed By: #### 5 7021-8 ####[facility] P[facility]LLASDENITALIA [id number] [place] [address] [place] Platelet mean volume (Bld) [Entitic vol] 8.1 fL Low 9.0-12.7 [facility] Comment on above: Order Comment: Speci men Type: BLOOD SPECIMENOrdering Facility: [facility] Address: [address] [place] [address] Performed By: #### 5 7021-8 ####[facility] P[facility]LLASDENITALIA [id number] [place] [address] [place] Platelets (Bld) [#/Vol] 253 10*3/uL Normal 150-400 [facility] Comment on above: Order Comment: Speci men Type: BLOOD SPECIMENOrdering Facility: [facility] Address: [address] [place] [address] Performed By: #### 5 7021-8 ####[facility] P[facility]LLASDENITALIA [id number] [place] [address] [place] RBC (Bld) [#/Vol] 4.65 10*6/uL Normal 4.20-6.00 [facility] Comment on above: Order Comment: Speci men Type: BLOOD SPECIMENOrdering Facility: [facility] Address: [address] [place] [address] Performed By: #### 5 7021-8 ####[facility]CAREL[facility] [id number] [place] [address] [place] WBC (Bld) [#/Vol] 4.73 10*3/uL Normal 3.70-11.00 [facility] Comment on above: Order Comment: Speci men Type: BLOOD SPECIMENOrdering Facility: [facility] Address: [address] [place] [address] Performed By: #### 5 7021-8 ####[facility] PINELLASNCLIA [id number] [place] [address] [place] CNCOon 10-06-2024 CNCO Letter Text Normal [facility] CNOVSPon 10-06-2024 CNOVSP Normal [facility] Comprehensive metabolic 2000 panelon 10-06-2024 Albumin [Mass/Vol] 4.6 g/dL Normal 3.9-4.9 [facility] Comment on above: Order Comment: Speci men Type: BLOOD SPECIMENOrdering Facility: [facility] Address: [address] [place] [address] Performed By: #### 2 4323-8 ####[facility] MILLTOWNCLIA [id number] [place] [address] [place] ALP [Catalytic activity/Vol] 101 U/L Normal 38-113 [facility] Comment on above: Order Comment: Speci men Type: BLOOD SPECIMENOrdering Facility: [facility] Address: [address] [place] [address] Performed By: #### 2 4323-8 ####[facility] MILLTOWNCLIA [id number] [place] [address] [place] ALT [Catalytic activity/Vol] 38 U/L Normal 10-54 [facility] Comment on above: Order Comment: Speci men Type: BLOOD SPECIMENOrdering Facility: [facility] Address: [address] [place] [address] Performed By: #### 2 4323-8 ####[facility] MILLTOWNCLIA [id number] [place] [address] [place] Anion gap [Moles/Vol] 8 mmol/L Normal 8-15 [facility] Comment on above: Order Comment: Speci men Type: BLOOD SPECIMENOrdering Facility: [facility] Address: [address] [place] [address] Performed By: #### 2 4323-8 ####[facility] MILLTOWNCLIA [id number] [place] [address] [place] AST [Catalytic activity/Vol] 38 U/L Normal 14-40 [facility] Comment on above: Order Comment: Speci men Type: BLOOD SPECIMENOrdering Facility: [facility] Address: [address] [place] [address] Performed By: #### 2 4323-8 ####[facility] [id number] [place] [address] [place] Bilirubin [Mass/Vol] 0.4 mg/dL Normal 0.2-1.3 [facility] Comment on above: Order Comment: Speci men Type: BLOOD SPECIMENOrdering Facility: [facility] Address: [address] [place] [address] Performed By: #### 2 4323-8 ####[facility] [id number] [place] [address] [place] Calcium [Mass/Vol] 10.2 mg/dL Normal 8.5-10.2 [facility] Comment on above: Order Comment: Speci men Type: BLOOD SPECIMENOrdering Facility: [facility] Address: [address] [place] [address] Performed By: #### 2 4323-8 ####[facility] [id number] [place] [address] [place] Chloride [Moles/Vol] 104 mmol/L Normal 98-107 [facility] Comment on above: Order Comment: Speci men Type: BLOOD SPECIMENOrdering Facility: [facility] Address: [address] [place] [address] Performed By: #### 2 4323-8 ####[facility]ENTERA [id number] [place] [address] [place] CO2 [Moles/Vol] 28 mmol/L Normal 22-30 [facility] Comment on above: Order Comment: Speci men Type: BLOOD SPECIMENOrdering Facility: [facility] Address: [address] [place] [address] Performed By: #### 2 4323-8 ####[facility] [id number] [address] [place] Creatinine [Mass/Vol] 0.82 mg/dL Normal 0.73-1.22 [facility] Comment on above: Order Comment: Speci men Type: BLOOD SPECIMENOrdering Facility: [facility] Address: [address] [place] [address] Performed By: #### 2 4323-8 ####[facility] PINELLASNCLI [id number] [place] [address] [place] Creatinine and Glomerular filtration rate.predicted panel (S/P/Bld) 98 mL/min/1.73m??? Normal >=60 [facility] Comment on above: Order Comment: Augustine men Type: BLOOD SPECIMENOrdering Facility: [facility] Address: [address] [place] [address] Result Comment: Kisha mated Glomerular Filtration Rate (eGFR) is calculated using the 2020 CKD-EPI creatinine equation. This equation utilizes serum creatinine, sex, and age as parameters. The creatinine assay has traceable calibration to isotope dilution-mass spectrometry. Refer to KDIGO guidelines for clinical interpretation. In patients with unstable renal function, e.g. those with acute kidney injury, the eGFR may not accurately reflect actual GFR. Performed By: #### 2 4323-8 ####[facility]A [id number] [place] [address] [place] Glucose [Mass/Vol] 172 mg/dL High 74-99 [facility] Comment on above: Order Comment: Speci men Type: BLOOD SPECIMENOrdering Facility: [facility] Address: [address] [place] [address] Result Comment: The [place] Diabetes Association (ADA) provides guidance for cutoff values for fasting glucose and random glucose. The ADA defines fasting as no caloric intake for at least 8 hours. Fasting plasma glucose results between 100 to 125 mg/dL indicate increased risk for diabetes (prediabetes).Fasting plasma glucose results greater than or equal to 126 mg/dL meet the criteria for diagnosis of diabetes. In the absence of unequivocal hyperglycemia, results should be confirmed by repeat testing. In a patient with classic symptoms of hyperglycemia or hyperglycemic crisis, random plasma glucose results greater than or equal to 200 mg/dL meet the criteria for diagnosis of diabetes.Reference: Standards of Medical Care in Diabetes 2016, [place] Diabetes Association. Diabetes Care. 2016.39(Suppl 1). Performed By: #### 2 4323-8 ####[facility] MILLTOWNCLIA [id number] [place] [address] [place] Potassium [Moles/Vol] 4.0 mmol/L Normal 3.7-5.1 [facility] Comment on above: Order Comment: Fatoui men Type: BLOOD SPECIMENOrdering Facility: [facility] Address: [address] [place] [address] Performed By: #### 2 4323-8 ####[facility] HOSPITALWNCLIA [id number] [place] [address] [place] Protein [Mass/Vol] 7.0 g/dL Normal 6.3-8.0 [facility] Comment on above: Order Comment: Fatoui saadia Type: BLOOD SPECIMENOrdering Facility: [facility] Address: [address] [place] [address] Performed By: #### 2 4323-8 ####[facility] HOSPITALWNCLIA [id number] [place] [address] [place] Sodium [Moles/Vol] 140 mmol/L Normal 136-144 [facility] Comment on above: Order Comment: Fatoui men Type: BLOOD SPECIMENOrdering Facility: [facility] Address: [address] [place] [address] Performed By: #### 2 4323-8 ####[facility] HOSPITALWNCLIA [id number] [place] [address] [place] Urea nitrogen [Mass/Vol] 8 mg/dL Low 9-24 [facility] Comment on above: Order Comment: Speci men Type: BLOOD SPECIMENOrdering Facility: [facility] Address: [address] [place] [address] Performed By: #### 2 4323-8 ####[facility] P[facility]LLASNCA [id number] [place] [address] [place] CBC W Auto Differential pane l (Bld)on 09-23-2024 Basophils (Bld) [#/Vol] 0.08 10*3/uL Normal <0.11 [facility] Comment on above: Order Comment: Speci men Type: BLOOD SPECIMENOrdering Facility: [facility] Address: [address] [place] [address] Performed By: #### 5 7021-8 ####[facility] P[facility]LLASNCA [id number] [place] [address] [place] Basophils/100 WBC (Bld) 1.8 % Normal [facility] Comment on above: Order Comment: Speci men Type: BLOOD SPECIMENOrdering Facility: [facility] Address: [address] [place] [address] Performed By: #### 5 7021-8 ####[facility] [id number] [place] [address] [place] Differential cell count method Nom (Bld) Auto Normal [facility] Comment on above: Order Comment: Speci men Type: BLOOD SPECIMENOrdering Facility: [facility] Address: [address] [place] [address] Performed By: #### 5 7021-8 ####[facility]LLASNCLIA [id number] [place] [address] [place] Eosinophils (Bld) [#/Vol] 0.23 10*3/uL Normal <0.46 [facility] Comment on above: Order Comment: Speci men Type: BLOOD SPECIMENOrdering Facility: [facility] Address: [address] [place] [address] Performed By: #### 5 7021-8 ####[facility] KIESHAHENRY [id number] [place] [address] [place] Eosinophils/100 WBC (Bld) 5.3 % Normal [facility] Comment on above: Order Comment: Speci men Type: BLOOD SPECIMENOrdering Facility: [facility] Address: [address] [place] [address] Performed By: #### 5 7021-8 ####[facility] PINELLASNCRAJEEV [id number] [place] [address] [place] Erythrocyte distribution width (RBC) [Ratio] 15.3 % High 11.5-15.0 [facility] Comment on above: Order Comment: Speci men Type: BLOOD SPECIMENOrdering Facility: [facility] Address: [address] [place] [address] Performed By: #### 5 7021-8 ####[facility]LLASNCLIA [id number] [place] [address] [place] Hematocrit (Bld) [Volume fraction] 36.3 % Low 39.0-51.0 [facility] Comment on above: Order Comment: Speci men Type: BLOOD SPECIMENOrdering Facility: [facility] Address: [address] [place] [address] Performed By: #### 5 7021-8 ####[facility]LLASNCLIA [id number] [place] [address] [place] Hemoglobin (Bld) [Mass/Vol] 11.9 g/dL Low 13.0-17.0 [facility] Comment on above: Order Comment: Speci men Type: BLOOD SPECIMENOrdering Facility: [facility] Address: [address] [place] [address] Performed By: #### 5 7021-8 ####[facility] HOSPITALWNCLIA [id number] [place] [address] [place] Immature granulocytes (Bld) [#/Vol] 0.11 10*3/uL High <0.10 [facility] Comment on above: Order Comment: Speci men Type: BLOOD SPECIMENOrdering Facility: [facility] Address: [address] [place] [address] Performed By: #### 5 7021-8 ####[facility] [id number] [place] [address] [place] Immature granulocytes/100 WBC (Bld) 2.5 % Normal [facility] Comment on above: Order Comment: Speci men Type: BLOOD SPECIMENOrdering Facility: [facility] Address: [address] [place] [address] Performed By: #### 5 7021-8 ####[facility] [id number] [place] [address] [place] Lymphocytes (Bld) [#/Vol] 0.97 10*3/uL Low 1.00-4.00 [facility] Comment on above: Order Comment: Speci men Type: BLOOD SPECIMENOrdering Facility: [facility] Address: [address] [place] [address] Performed By: #### 5 7021-8 ####[facility] [id number] [place] [address] [place] Lymphocytes/100 WBC (Bld) 22.3 % Normal [facility] Comment on above: Order Comment: Speci men Type: BLOOD SPECIMENOrdering Facility: [facility] Address: [address] [place] [address] Performed By: #### 5 7021-8 ####[facility]LLASNCLI [id number] [place] [address] [place] MCH (RBC) [Entitic mass] 28.4 pg Normal 26.0-34.0 [facility] Comment on above: Order Comment: Speci men Type: BLOOD SPECIMENOrdering Facility: [facility] Address: [address] [place] [address] Performed By: #### 5 7021-8 ####[facility] [id number] [place] [address] [place] MCHC (RBC) [Mass/Vol] 32.8 g/dL Normal 30.5-36.0 [facility] Comment on above: Order Comment: Speci men Type: BLOOD SPECIMENOrdering Facility: [facility] Address: [address] [place], [place] [address] Performed By: #### 5 7021-8 ####[facility] [id number] [place] [address] [place] MCV (RBC) [Entitic vol] 86.6 fL Normal 80.0-100.0 [facility] Comment on above: Order Comment: Speci men Type: BLOOD SPECIMENOrdering Facility: [facility] Address: [address] [place], [place] [address] Performed By: #### 5 7021-8 ####[facility] [id number] [place] [address] [place] Monocytes (Bld) [#/Vol] 0.42 10*3/uL Normal <0.87 [facility] Comment on above: Order Comment: Speci men Type: BLOOD SPECIMENOrdering Facility: [facility] Address: [address] [place] [address] Performed By: #### 5 7021-8 ####[facility] [id number] [place] [address] [place] Monocytes/100 WBC (Bld) 9.7 % Normal [facility] Comment on above: Order Comment: Speci men Type: BLOOD SPECIMENOrdering Facility: [facility] Address: [address] [place] [address] Performed By: #### 5 7021-8 ####[facility] KIESHAWNCLIA [id number] [place] [address] [place] Neutrophils (Bld) [#/Vol] 2.54 10*3/uL Normal 1.45-7.50 [facility] Comment on above: Order Comment: Speci men Type: BLOOD SPECIMENOrdering Facility: [facility] Address: [address] [place] [address] Performed By: #### 5 7021-8 ####[facility] HOSPITALWNCLIA [id number] [place] [address] [place] Neutrophils/100 WBC (Bld) 58.4 % Normal [facility] Comment on above: Order Comment: Speci men Type: BLOOD SPECIMENOrdering Facility: [facility] Address: [address] [place] [address] Performed By: #### 5 7021-8 ####[facility]LLASNCLIA [id number] [place] [address] [place] Nucleated RBC (Bld) [#/Vol] 10*3/uL Normal <0.01 [facility] Comment on above: Order Comment: Speci men Type: BLOOD SPECIMENOrdering Facility: [facility] Address: [address] [place] [address] Performed By: #### 5 7021-8 ####[facility] MILLWNCLIA [id number] [place] [address] [place] Nucleated RBC/100 WBC (Bld) [Ratio] 0.0 /100 WBC Normal [facility] Comment on above: Order Comment: Speci men Type: BLOOD SPECIMENOrdering Facility: [facility] Address: [address] [place] [address] Performed By: #### 5 7021-8 ####[facility] [id number] [place] [address] [place] Platelet mean volume (Bld) [Entitic vol] 8.6 fL Low 9.0-12.7 [facility] Comment on above: Order Comment: Speci men Type: BLOOD SPECIMENOrdering Facility: [facility] Address: [address] [place] [address] Performed By: #### 5 7021-8 ####[facility] KIESHAGERALDOA [id number] [place] [address] [place] Platelets (Bld) [#/Vol] 247 10*3/uL Normal 150-400 [facility] Comment on above: Order Comment: Speci men Type: BLOOD SPECIMENOrdering Facility: [facility] Address: [address] [place] [address] Performed By: #### 5 7021-8 ####[facility]LLASDENITAYOHANAA [id number] [place] [address] [place] RBC (Bld) [#/Vol] 4.19 10*6/uL Low 4.20-6.00 [facility] Comment on above: Order Comment: Speci men Type: BLOOD SPECIMENOrdering Facility: [facility] Address: [address] [place] [address] Performed By: #### 5 7021-8 ####[facility] KIESHANEW HOPEDENITALIA [id number] [place] [address] [place] WBC (Bld) [#/Vol] 4.35 10*3/uL Normal 3.70-11.00 [facility] Comment on above: Order Comment: Speci men Type: BLOOD SPECIMENOrdering Facility: [facility] Address: [address] [place] [address] Performed By: #### 5 7021-8 ####[facility] P[facility]LLASNCLIA [id number] [place] [address] [place] CNPNon 09-23-2024 CNPN Normal [facility] CBC W Auto Differential pane l (Bld)on 09-16-2024 Anisocytosis Ql (Bld) Present Normal [facility] Comment on above: Order Comment: Speci men Type: BLOOD SPECIMENOrdering Facility: [facility] Address: [address] [place] [address] Performed By: #### 5 7021-8 ####[facility] MILLWNCLIA [id number] [address] LABCLIA [id number] [place] [address] [place] Basophils (Bld) [#/Vol] 0.11 10*3/uL High <0.11 [facility] Comment on above: Order Comment: Speci men Type: BLOOD SPECIMENOrdering Facility: [facility] Address: [address] [place] [address] Performed By: #### 5 7021-8 ####[facility] MILLTOWNCLIA [id number] [address] STATES [facility] LABCLIA [id number] [place] [address] [place] Basophils/100 WBC (Bld) 1.8 % Normal [facility] Comment on above: Order Comment: Speci men Type: BLOOD SPECIMENOrdering Facility: [facility] Address: [address] [place] [address] Performed By: #### 5 7021-8 ####[facility] MILLWNCLIA [id number] [address] STATES OF [facility] LABCLIA [id number] [place] [address] [place] Differential cell count method Nom (Bld) Manual Normal [facility] Comment on above: Order Comment: Speci men Type: BLOOD SPECIMENOrdering Facility: [facility] Address: [address] [place] [address] Performed By: #### 5 7021-8 ####[facility] KIESHAWNCLIA [id number] [address] LABCLIA [id number] [place] [address] [place] Eosinophils (Bld) [#/Vol] 0.21 10*3/uL Normal <0.46 [facility] Comment on above: Order Comment: Speci men Type: BLOOD SPECIMENOrdering Facility: [facility] Address: [address] [place] [address] Performed By: #### 5 7021-8 ####[facility]LLASNCLIA [id number] [address] LABCLIA [id number] [place] [address] [place] Eosinophils/100 WBC (Bld) 3.5 % Normal [facility] Comment on above: Order Comment: Speci men Type: BLOOD SPECIMENOrdering Facility: [facility] Address: [address] [place] [address] Performed By: #### 5 7021-8 ####[facility]LLASDENITALIA [id number] [address] LABCLIA [id number] [place] [address] [place] Erythrocyte distribution width (RBC) [Ratio] 15.2 % High 11.5-15.0 [facility] Comment on above: Order Comment: Speci men Type: BLOOD SPECIMENOrdering Facility: [facility] Address: [address] [place] [address] Performed By: #### 5 7021-8 ####[facility] [id number] [address] LABCLIA [id number] [place] [address] [place] Hematocrit (Bld) [Volume fraction] 39.3 % Normal 39.0-51.0 [facility] Comment on above: Order Comment: Speci men Type: BLOOD SPECIMENOrdering Facility: [facility] Address: [address] [place] [address] Performed By: #### 5 7021-8 ####[facility] MILLWNCLIA [id number] [address] LABCLIA [id number] [place] [address] [place] Hemoglobin (Bld) [Mass/Vol] 12.5 g/dL Low 13.0-17.0 [facility] Comment on above: Order Comment: Speci men Type: BLOOD SPECIMENOrdering Facility: [facility] Address: [address] [place] [address] Performed By: #### 5 7021-8 ####[facility] HOSPITALWHILIA [id number] [address] LABCLIA [id number] [place] [address] [place] Lymphocytes (Bld) [#/Vol] 1.17 10*3/uL Normal 1.00-4.00 [facility] Comment on above: Order Comment: Speci men Type: BLOOD SPECIMENOrdering Facility: [facility] Address: [address] [place] [address] Performed By: #### 5 7021-8 ####[facility] MILLTOWNCLIA [id number] [address] LABCLIA [id number] [address] [place] Lymphocytes/100 WBC (Bld) 18.4 % Normal [facility] Comment on above: Order Comment: Speci men Type: BLOOD SPECIMENOrdering Facility: [facility] Address: [address] [place] [address] Performed By: #### 5 7021-8 ####[facility] HOSPITALWNCLIA [id number] [address] LABCLIA [id number] [place] [address] [place] MCH (RBC) [Entitic mass] 28.0 pg Normal 26.0-34.0 [facility] Comment on above: Order Comment: Speci men Type: BLOOD SPECIMENOrdering Facility: [facility] Address: [address] [place] [address] Performed By: #### 5 7021-8 ####[facility] [id number] [address] LABCLIA [id number] [place] [address] [place] MCHC (RBC) [Mass/Vol] 31.8 g/dL Normal 30.5-36.0 [facility] Comment on above: Order Comment: Speci men Type: BLOOD SPECIMENOrdering Facility: [facility] Address: [address] [place] [address] Performed By: #### 5 7021-8 ####[facility] HOSPITALWNCLIA [id number] [address] LABCLIA [id number] [place] [address] [place] MCV (RBC) [Entitic vol] 88.1 fL Normal 80.0-100.0 [facility] Comment on above: Order Comment: Speci men Type: BLOOD SPECIMENOrdering Facility: [facility] Address: [address] [place] [address] Performed By: #### 5 7021-8 ####[facility] MILLWNCLIA [id number] [address] LABCLIA [id number] [place] [address] [place] Metamyelocytes/100 WBC (Bld) 1.8 % Normal [facility] Comment on above: Order Comment: Speci men Type: BLOOD SPECIMENOrdering Facility: [facility] Address: [address] [place] [address] Performed By: #### 5 7021-8 ####[facility]LLASNCLIA [id number] [address] LABCLIA [id number] [place] [address] [place] Monocytes (Bld) [#/Vol] 0.05 10*3/uL Normal <0.87 [facility] Comment on above: Order Comment: Speci men Type: BLOOD SPECIMENOrdering Facility: [facility] Address: [address] [place] [address] Performed By: #### 5 7021-8 ####[facility] HOSPITALWNCLIA [id number] [address] LABCLIA [id number] [place] [address] [place] Monocytes/100 WBC (Bld) 0.9 % Normal [facility] Comment on above: Order Comment: Speci men Type: BLOOD SPECIMENOrdering Facility: [facility] Address: [address] [place] [address] Performed By: #### 5 7021-8 ####[facility] MILLWNCLIA [id number] [address] [facility] LABCLIA [id number] [address] [address] [place] MYELO% 2.6 % Normal [facility] Comment on above: Order Comment: Speci men Type: BLOOD SPECIMENOrdering Facility: [facility] Address: [address] [place] [address] Performed By: #### 5 7021-8 ####[facility] MILLTOWNCLIA [id number] [address] LABCLIA [id number] [place] [address] [place] Neutrophils (Bld) [#/Vol] 4.26 10*3/uL Normal 1.45-7.50 [facility] Comment on above: Order Comment: Speci men Type: BLOOD SPECIMENOrdering Facility: [facility] Address: [address] [place] [address] Performed By: #### 5 7021-8 ####[facility] HOSPITALWNCLIA [id number] [address] LABCLIA [id number] [place] [address] [place] Neutrophils/100 WBC (Bld) 70.1 % Normal [facility] Comment on above: Order Comment: Speci men Type: BLOOD SPECIMENOrdering Facility: [facility] Address: [address] [place] [address] Performed By: #### 5 7021-8 ####[facility] MILLTOWNCLIA [id number] [address] LABCLIA [id number] [place] [address] [place] Nucleated RBC (Bld) [#/Vol] 10*3/uL Normal <0.01 [facility] Comment on above: Order Comment: Speci men Type: BLOOD SPECIMENOrdering Facility: [facility] Address: [address] [place] [address] Performed By: #### 5 7021-8 ####[facility] MILLTOWNCLIA [id number] [address] STATES [facility] LABCLIA [id number] [place] [address] [place] Nucleated RBC/100 WBC (Bld) [Ratio] 0.0 /100 WBC Normal [facility] Comment on above: Order Comment: Speci men Type: BLOOD SPECIMENOrdering Facility: [facility] Address: [address] [place] [address] Performed By: #### 5 7021-8 ####[facility]LLASNCLIA [id number] [place] [address] [place] [facility] LABCLIA [id number] [place] [address] [place] Ovalocytes LM Ql (Bld) Few Normal [facility] Comment on above: Order Comment: Speci men Type: BLOOD SPECIMENOrdering Facility: [facility] Address: [address] [place] [address] Performed By: #### 5 7021-8 ####[facility] HOSPITALWNCLIA [id number] [place] [address] [place] [facility] LABCLIA [id number] [place] [address] [place] Platelet mean volume (Bld) [Entitic vol] 8.0 fL Low 9.0-12.7 [facility] Comment on above: Order Comment: Speci men Type: BLOOD SPECIMENOrdering Facility: [facility] Address: [address] [place] [address] Performed By: #### 5 7021-8 ####[facility] MILLTOWNCLIA [id number] [place] [address] [place] [facility] LABCLIA [id number] [place] [address] [place] Platelets (Bld) [#/Vol] 273 10*3/uL Normal 150-400 [facility] Comment on above: Order Comment: Speci men Type: BLOOD SPECIMENOrdering Facility: [facility] Address: [address] [place] [address] Performed By: #### 5 7021-8 ####[facility] MILLTOWNCLIA [id number] [place] [address] [place] [facility] LABCLIA [id number] [place] [address] [place] Platelets Estimate (Bld) [#/Vol] Adequate Normal [facility] Comment on above: Order Comment: Speci men Type: BLOOD SPECIMENOrdering Facility: [facility] Address: [address] [place] [address] Performed By: #### 5 7021-8 ####[facility] HOSPITALWNCLIA [id number] [place] [address] [place] [facility] LABCLIA [id number] [place] [address] [place] Polychromasia LM Ql (Bld) Slight Normal [facility] Comment on above: Order Comment: Speci men Type: BLOOD SPECIMENOrdering Facility: [facility] Address: [address] [place] [address] Performed By: #### 5 7021-8 ####[facility] MILLTOWNCLIA [id number] [place] [address] [place] [facility] LABCLIA [id number] [address] [address] [place] RBC (Bld) [#/Vol] 4.46 10*6/uL Normal 4.20-6.00 [facility] Comment on above: Order Comment: Speci men Type: BLOOD SPECIMENOrdering Facility: [facility] Address: [address] [place] [address] Performed By: #### 5 7021-8 ####[facility] HOSPITALWNCLIA [id number] [address] LABCLIA [id number] [place] [address] [place] RED CELL MORPH Reviewed: see result s of individual morphologies Normal [facility] Comment on above: Order Comment: Speci men Type: BLOOD SPECIMENOrdering Facility: [facility] Address: [address] [place] [address] Performed By: #### 5 7021-8 ####[facility] [id number] [address] STATES [facility] LABCLIA [id number] [place] [address] [place] Variant lymphocytes/100 WBC (Bld) 0.9 % Normal [facility] Comment on above: Order Comment: Speci men Type: BLOOD SPECIMENOrdering Facility: [facility] Address: [address] [place] [address] Performed By: #### 5 7021-8 ####[facility] [id number] [address] STATES [facility] LABCLIA [id number] [place] [address] [place] WBC (Bld) [#/Vol] 6.08 10*3/uL Normal 3.70-11.00 [facility] Comment on above: Order Comment: Speci men Type: BLOOD SPECIMENOrdering Facility: [facility] Address: [address] [place] [address] Performed By: #### 5 7021-8 ####[facility] MILLWNCLIA [id number] [address] LABCLIA [id number] [place] [address] [place] WBC Left Shift Ql (Bld) Present Normal [facility] Comment on above: Order Comment: Speci men Type: BLOOD SPECIMENOrdering Facility: [facility] Address: [address] [place] [address] Performed By: #### 5 7021-8 ####[facility]ENTERA [id number] [address] STATES [facility] LABIA [id number] [place] [address] [place] CBC W Auto Differential pane l (Bld)on 09-09-2024 Basophils (Bld) [#/Vol] 0.09 10*3/uL Normal <0.11 [facility] Comment on above: Order Comment: Speci men Type: BLOOD SPECIMENOrdering Facility: [facility] Address: [address] [place] [address] Performed By: #### 5 7021-8 ####[facility] [id number] [place] [address] [place] Basophils/100 WBC (Bld) 1.2 % Normal [facility] Comment on above: Order Comment: Speci men Type: BLOOD SPECIMENOrdering Facility: [facility] Address: [address] [place] [address] Performed By: #### 5 7021-8 ####[facility] [id number] [place] [address] [place] Differential cell count method Nom (Bld) Auto Normal [facility] Comment on above: Order Comment: Speci men Type: BLOOD SPECIMENOrdering Facility: [facility] Address: [address] [place] [address] Performed By: #### 5 7021-8 ####[facility] [id number] [place] [address] [place] Eosinophils (Bld) [#/Vol] 0.11 10*3/uL Normal <0.46 [facility] Comment on above: Order Comment: Speci men Type: BLOOD SPECIMENOrdering Facility: [facility] Address: [address] [place] [address] Performed By: #### 5 7021-8 ####[facility] [id number] [place] [address] [place] Eosinophils/100 WBC (Bld) 1.5 % Normal [facility] Comment on above: Order Comment: Speci men Type: BLOOD SPECIMENOrdering Facility: [facility] Address: [address] [place] [address] Performed By: #### 5 7021-8 ####[facility] [id number] [place] [address] [place] Erythrocyte distribution width (RBC) [Ratio] 15.3 % High 11.5-15.0 [facility] Comment on above: Order Comment: Speci men Type: BLOOD SPECIMENOrdering Facility: [facility] Address: [address] [place] [address] Performed By: #### 5 7021-8 ####[facility] HOSPITALWNCLIA [id number] [place] [address] [place] Hematocrit (Bld) [Volume fraction] 46.9 % Normal 39.0-51.0 [facility] Comment on above: Order Comment: Speci men Type: BLOOD SPECIMENOrdering Facility: [facility] Address: [address] [place] [address] Performed By: #### 5 7021-8 ####[facility] [id number] [place] [address] [place] Hemoglobin (Bld) [Mass/Vol] 15.2 g/dL Normal 13.0-17.0 [facility] Comment on above: Order Comment: Speci men Type: BLOOD SPECIMENOrdering Facility: [facility] Address: [address] [place] [address] Performed By: #### 5 7021-8 ####[facility] [id number] [place] [address] [place] Immature granulocytes (Bld) [#/Vol] 0.07 10*3/uL Normal <0.10 [facility] Comment on above: Order Comment: Speci men Type: BLOOD SPECIMENOrdering Facility: [facility] Address: [address] [place] [address] Performed By: #### 5 7021-8 ####[facility] [id number] [place] [address] [place] Immature granulocytes/100 WBC (Bld) 0.9 % Normal [facility] Comment on above: Order Comment: Speci men Type: BLOOD SPECIMENOrdering Facility: [facility] Address: [address] [place] [address] Performed By: #### 5 7021-8 ####[facility] [id number] [place] [address] [place] Lymphocytes (Bld) [#/Vol] 1.30 10*3/uL Normal 1.00-4.00 [facility] Comment on above: Order Comment: Speci men Type: BLOOD SPECIMENOrdering Facility: [facility] Address: [address] [place] [address] Performed By: #### 5 7021-8 ####[facility]A [id number] [place] [address] [place] Lymphocytes/100 WBC (Bld) 17.4 % Normal [facility] Comment on above: Order Comment: Speci men Type: BLOOD SPECIMENOrdering Facility: [facility] Address: [address] [place] [address] Performed By: #### 5 7021-8 ####[facility] KIESHAEtienneNCRAJEEV [id number] [address] [place] MCH (RBC) [Entitic mass] 27.9 pg Normal 26.0-34.0 [facility] Comment on above: Order Comment: Speci men Type: BLOOD SPECIMENOrdering Facility: [facility] Address: [address] [place] [address] Performed By: #### 5 7021-8 ####[facility] [id number] [address] [place] MCHC (RBC) [Mass/Vol] 32.4 g/dL Normal 30.5-36.0 [facility] Comment on above: Order Comment: Speci men Type: BLOOD SPECIMENOrdering Facility: [facility] Address: [address] [place] [address] Performed By: #### 5 7021-8 ####[facility] P[facility]LLASNCLIA [id number] [address] [place] MCV (RBC) [Entitic vol] 86.1 fL Normal 80.0-100.0 [facility] Comment on above: Order Comment: Speci men Type: BLOOD SPECIMENOrdering Facility: [facility] Address: [address] [place] [address] Performed By: #### 5 7021-8 ####[facility]LLASNCLIA [id number] [place] [address] [place] Monocytes (Bld) [#/Vol] 0.70 10*3/uL Normal <0.87 [facility] Comment on above: Order Comment: Speci men Type: BLOOD SPECIMENOrdering Facility: [facility] Address: [address] [place] [address] Performed By: #### 5 7021-8 ####[facility] KIESHAWNCLIA [id number] [place] [address] [place] Monocytes/100 WBC (Bld) 9.4 % Normal [facility] Comment on above: Order Comment: Speci men Type: BLOOD SPECIMENOrdering Facility: [facility] Address: [address] [place] [address] Performed By: #### 5 7021-8 ####[facility] [id number] [place] [address] [place] Neutrophils (Bld) [#/Vol] 5.18 10*3/uL Normal 1.45-7.50 [facility] Comment on above: Order Comment: Speci men Type: BLOOD SPECIMENOrdering Facility: [facility] Address: [address] [place] [address] Performed By: #### 5 7021-8 ####[facility] [id number] [place] [address] [place] Neutrophils/100 WBC (Bld) 69.6 % Normal [facility] Comment on above: Order Comment: Speci men Type: BLOOD SPECIMENOrdering Facility: [facility] Address: [address] [place] [address] Performed By: #### 5 7021-8 ####[facility] [id number] [place] [address] [place] Nucleated RBC (Bld) [#/Vol] 10*3/uL Normal <0.01 [facility] Comment on above: Order Comment: Speci men Type: BLOOD SPECIMENOrdering Facility: [facility] Address: [address] [place] [address] Performed By: #### 5 7021-8 ####[facility] [id number] [place] [address] [place] Nucleated RBC/100 WBC (Bld) [Ratio] 0.0 /100 WBC Normal [facility] Comment on above: Order Comment: Speci men Type: BLOOD SPECIMENOrdering Facility: [facility] Address: [address] [place] [address] Performed By: #### 5 7021-8 ####[facility] PINELLASDENITARAJEEV [id number] [place] [address] [place] Platelet mean volume (Bld) [Entitic vol] 8.4 fL Low 9.0-12.7 [facility] Comment on above: Order Comment: Speci men Type: BLOOD SPECIMENOrdering Facility: [facility] Address: [address] [place] [address] Performed By: #### 5 7021-8 ####[facility] PINELLASDENITAMaricruz [id number] [place] [address] [place] Platelets (Bld) [#/Vol] 267 10*3/uL Normal 150-400 [facility] Comment on above: Order Comment: Speci men Type: BLOOD SPECIMENOrdering Facility: [facility] Address: [address] [place] [address] Performed By: #### 5 7021-8 ####[facility]LLASDENITARAJEEV [id number] [place] [address] [place] RBC (Bld) [#/Vol] 5.45 10*6/uL Normal 4.20-6.00 [facility] Comment on above: Order Comment: Speci men Type: BLOOD SPECIMENOrdering Facility: [facility] Address: [address] [place] [address] Performed By: #### 5 7021-8 ####[facility]LLASNCLIA [id number] [place] [address] [place] WBC (Bld) [#/Vol] 7.45 10*3/uL Normal 3.70-11.00 [facility] Comment on above: Order Comment: Speci men Type: BLOOD SPECIMENOrdering Facility: [facility] Address: [address] [place] [address] Performed By: #### 5 7021-8 ####[facility] PINELLASNCLIA [id number] [place] [address] [place] CNOVSPon 09-09-2024 CNOVSP Normal [facility] CNPNon 09-09-2024 CNPN Normal [facility] Comprehensive metabolic 2000 panelon 09-09-2024 Albumin [Mass/Vol] 4.8 g/dL Normal 3.9-4.9 [facility] Comment on above: Order Comment: Speci men Type: BLOOD SPECIMENOrdering Facility: [facility] Address: [address] [place] [address] Performed By: #### 2 4323-8 ####[facility]LLASNCLIA [id number] [place] [address] [place] ALP [Catalytic activity/Vol] 119 U/L High 38-113 [facility] Comment on above: Order Comment: Speci men Type: BLOOD SPECIMENOrdering Facility: [facility] Address: [address] [place] [address] Performed By: #### 2 4323-8 ####[facility]ENTERA [id number] [place] [address] [place] ALT [Catalytic activity/Vol] 28 U/L Normal 10-54 [facility] Comment on above: Order Comment: Speci men Type: BLOOD SPECIMENOrdering Facility: [facility] Address: [address] [place] [address] Performed By: #### 2 4323-8 ####[facility] HOSPITALWNCLIA [id number] [place] [address] [place] Anion gap [Moles/Vol] 15 mmol/L Normal 8-15 [facility] Comment on above: Order Comment: Speci men Type: BLOOD SPECIMENOrdering Facility: [facility] Address: [address] [place] [address] Performed By: #### 2 4323-8 ####[facility] KIESHANEW HOPENCLIA [id number] [place] [address] [place] AST [Catalytic activity/Vol] 20 U/L Normal 14-40 [facility] Comment on above: Order Comment: Speci men Type: BLOOD SPECIMENOrdering Facility: [facility] Address: [address] [place] [address] Performed By: #### 2 4323-8 ####[facility] CENTERMaricruz [id number] [place] [address] [place] Bilirubin [Mass/Vol] 0.7 mg/dL Normal 0.2-1.3 [facility] Comment on above: Order Comment: Speci men Type: BLOOD SPECIMENOrdering Facility: [facility] Address: [address] [place] [address] Performed By: #### 2 4323-8 ####[facility]A [id number] [place] [address] [place] Calcium [Mass/Vol] 10.0 mg/dL Normal 8.5-10.2 [facility] Comment on above: Order Comment: Speci men Type: BLOOD SPECIMENOrdering Facility: [facility] Address: [address] [place] [address] Performed By: #### 2 4323-8 ####[facility] [id number] [place] [address] [place] Chloride [Moles/Vol] 101 mmol/L Normal 98-107 [facility] Comment on above: Order Comment: Speci men Type: BLOOD SPECIMENOrdering Facility: [facility] Address: [address] [place] [address] Performed By: #### 2 4323-8 ####[facility] [id number] [place] [address] [place] CO2 [Moles/Vol] 24 mmol/L Normal 22-30 [facility] Comment on above: Order Comment: Speci men Type: BLOOD SPECIMENOrdering Facility: [facility] Address: [address] [place] [address] Performed By: #### 2 4323-8 ####[facility] [id number] [place] [address] [place] Creatinine [Mass/Vol] 0.92 mg/dL Normal 0.73-1.22 [facility] Comment on above: Order Comment: Speci men Type: BLOOD SPECIMENOrdering Facility: [facility] Address: [address] [place] [address] Performed By: #### 2 4323-8 ####[facility] [id number] [place] [address] [place] Creatinine and Glomerular filtration rate.predicted panel (S/P/Bld) 93 mL/min/1.73m??? Normal >=60 [facility] Comment on above: Order Comment: Speci men Type: BLOOD SPECIMENOrdering Facility: [facility] Address: [address] [place] [address] Result Comment: Kisha mated Glomerular Filtration Rate (eGFR) is calculated using the 2020 CKD-EPI creatinine equation. This equation utilizes serum creatinine, sex, and age as parameters. The creatinine assay has traceable calibration to isotope dilution-mass spectrometry. Refer to KDIGO guidelines for clinical interpretation. In patients with unstable renal function, e.g. those with acute kidney injury, the eGFR may not accurately reflect actual GFR. Performed By: #### 2 4323-8 ####[facility]LLASNCLIA [id number] [place] [address] [place] Glucose [Mass/Vol] 179 mg/dL High 74-99 [facility] Comment on above: Order Comment: Speci men Type: BLOOD SPECIMENOrdering Facility: [facility] Address: [address] [place] [address] Result Comment: The [place] Diabetes Association (ADA) provides guidance for cutoff values for fasting glucose and random glucose. The ADA defines fasting as no caloric intake for at least 8 hours. Fasting plasma glucose results between 100 to 125 mg/dL indicate increased risk for diabetes (prediabetes).Fasting plasma glucose results greater than or equal to 126 mg/dL meet the criteria for diagnosis of diabetes. In the absence of unequivocal hyperglycemia, results should be confirmed by repeat testing. In a patient with classic symptoms of hyperglycemia or hyperglycemic crisis, random plasma glucose results greater than or equal to 200 mg/dL meet the criteria for diagnosis of diabetes.Reference: Standards of Medical Care in Diabetes 2016, [place] Diabetes Association. Diabetes Care. 2016.39(Suppl 1). Performed By: #### 2 4323-8 ####[facility] [id number] [place] [address] [place] Potassium [Moles/Vol] 3.7 mmol/L Normal 3.7-5.1 [facility] Comment on above: Order Comment: Fatoui men Type: BLOOD SPECIMENOrdering Facility: [facility] Address: [address] [place] [address] Performed By: #### 2 4323-8 ####[facility] CENTERMaricruz [id number] [place] [address] [place] Protein [Mass/Vol] 7.4 g/dL Normal 6.3-8.0 [facility] Comment on above: Order Comment: Speci men Type: BLOOD SPECIMENOrdering Facility: [facility] Address: [address] [place] [address] Performed By: #### 2 4323-8 ####[facility] [id number] [place] [address] [place] Sodium [Moles/Vol] 140 mmol/L Normal 136-144 [facility] Comment on above: Order Comment: Speci men Type: BLOOD SPECIMENOrdering Facility: [facility] Address: [address] [place] [address] Performed By: #### 2 4323-8 ####[facility] [id number] [place] [address] [place] Urea nitrogen [Mass/Vol] 20 mg/dL Normal 9-24 [facility] Comment on above: Order Comment: Speci men Type: BLOOD SPECIMENOrdering Facility: [facility] Address: [address] [place] [address] Performed By: #### 2 4323-8 ####[facility]LLASDENITAA [id number] [place] [address] [place] CBC W Auto Differential pane l (Bld)on 08-26-2024 Basophils (Bld) [#/Vol] 0.06 10*3/uL Normal <0.11 [facility] Comment on above: Order Comment: Speci men Type: BLOOD SPECIMENOrdering Facility: [facility] Address: [address] [place] [address] Performed By: #### 5 7021-8 ####[facility]ENTERA [id number] [place] [address] [place] Basophils/100 WBC (Bld) 1.2 % Normal [facility] Comment on above: Order Comment: Speci men Type: BLOOD SPECIMENOrdering Facility: [facility] Address: [address] [place] [address] Performed By: #### 5 7021-8 ####[facility]ENTERA [id number] [place] [address] [place] Differential cell count method Nom (Bld) Auto Normal [facility] Comment on above: Order Comment: Speci men Type: BLOOD SPECIMENOrdering Facility: [facility] Address: [address] [place], [place] [address] Performed By: #### 5 7021-8 ####[facility] HOSPITALWNCLIA [id number] [place] [address] [place] Eosinophils (Bld) [#/Vol] 10*3/uL Normal <0.46 [facility] Comment on above: Order Comment: Speci men Type: BLOOD SPECIMENOrdering Facility: [facility] Address: [address] [place] [address] Performed By: #### 5 7021-8 ####[facility] [id number] [place] [address] [place] Eosinophils/100 WBC (Bld) 0.2 % Normal [facility] Comment on above: Order Comment: Speci men Type: BLOOD SPECIMENOrdering Facility: [facility] Address: [address] [place] [address] Performed By: #### 5 7021-8 ####[facility]ENTERA [id number] [place] [address] [place] Erythrocyte distribution width (RBC) [Ratio] 14.3 % Normal 11.5-15.0 [facility] Comment on above: Order Comment: Speci men Type: BLOOD SPECIMENOrdering Facility: [facility] Address: [address] [place] [address] Performed By: #### 5 7021-8 ####[facility] [id number] [address] [place] Hematocrit (Bld) [Volume fraction] 36.5 % Low 39.0-51.0 [facility] Comment on above: Order Comment: Speci men Type: BLOOD SPECIMENOrdering Facility: [facility] Address: [address] [place] [address] Performed By: #### 5 7021-8 ####[facility] [id number] [place] [address] [place] Hemoglobin (Bld) [Mass/Vol] 12.1 g/dL Low 13.0-17.0 [facility] Comment on above: Order Comment: Speci men Type: BLOOD SPECIMENOrdering Facility: [facility] Address: [address] [place] [address] Performed By: #### 5 7021-8 ####[facility] [id number] [place] [address] [place] Immature granulocytes (Bld) [#/Vol] 0.16 10*3/uL High <0.10 [facility] Comment on above: Order Comment: Speci men Type: BLOOD SPECIMENOrdering Facility: [facility] Address: [address] [place] [address] Performed By: #### 5 7021-8 ####[facility] [id number] [place] [address] [place] Immature granulocytes/100 WBC (Bld) 3.2 % Normal [facility] Comment on above: Order Comment: Speci men Type: BLOOD SPECIMENOrdering Facility: [facility] Address: [address] [place] [address] Performed By: #### 5 7021-8 ####[facility] [id number] [place] [address] [place] Lymphocytes (Bld) [#/Vol] 0.71 10*3/uL Low 1.00-4.00 [facility] Comment on above: Order Comment: Speci men Type: BLOOD SPECIMENOrdering Facility: [facility] Address: [address] [place] [address] Performed By: #### 5 7021-8 ####[facility] PINELLASNCA [id number] [place] [address] [place] Lymphocytes/100 WBC (Bld) 14.3 % Normal [facility] Comment on above: Order Comment: Speci men Type: BLOOD SPECIMENOrdering Facility: [facility] Address: [address] [place], [place] [address] Performed By: #### 5 7021-8 ####[facility] KIESHAEtienneNCRAJEEV [id number] [place] [address] [place] MCH (RBC) [Entitic mass] 28.5 pg Normal 26.0-34.0 [facility] Comment on above: Order Comment: Speci men Type: BLOOD SPECIMENOrdering Facility: [facility] Address: [address] [place] [address] Performed By: #### 5 7021-8 ####[facility] PINELLASNCRAJEEV [id number] [place] [address] [place] MCHC (RBC) [Mass/Vol] 33.2 g/dL Normal 30.5-36.0 [facility] Comment on above: Order Comment: Speci men Type: BLOOD SPECIMENOrdering Facility: [facility] Address: [address] [place], [place] [address] Performed By: #### 5 7021-8 ####[facility] PINELLASNCA [id number] [address] [place] MCV (RBC) [Entitic vol] 86.1 fL Normal 80.0-100.0 [facility] Comment on above: Order Comment: Speci men Type: BLOOD SPECIMENOrdering Facility: [facility] Address: [address] [place], [place] [address] Performed By: #### 5 7021-8 ####[facility] PINELLASNCA [id number] [place] [address] [place] Monocytes (Bld) [#/Vol] 0.34 10*3/uL Normal <0.87 [facility] Comment on above: Order Comment: Speci men Type: BLOOD SPECIMENOrdering Facility: [facility] Address: [address] [place], [place] [address] Performed By: #### 5 7021-8 ####[facility] MILLWNCLIA [id number] [place] [address] [place] Monocytes/100 WBC (Bld) 6.8 % Normal [facility] Comment on above: Order Comment: Speci men Type: BLOOD SPECIMENOrdering Facility: [facility] Address: [address] [place] [address] Performed By: #### 5 7021-8 ####[facility] PINELLASNCLIA [id number] [place] [address] [place] Neutrophils (Bld) [#/Vol] 3.70 10*3/uL Normal 1.45-7.50 [facility] Comment on above: Order Comment: Speci men Type: BLOOD SPECIMENOrdering Facility: [facility] Address: [address] [place] [address] Performed By: #### 5 7021-8 ####[facility] [id number] [place] [address] [place] Neutrophils/100 WBC (Bld) 74.3 % Normal [facility] Comment on above: Order Comment: Speci men Type: BLOOD SPECIMENOrdering Facility: [facility] Address: [address] [place] [address] Performed By: #### 5 7021-8 ####[facility] PINELLASNCLIA [id number] [place] [address] [place] Nucleated RBC (Bld) [#/Vol] 10*3/uL Normal <0.01 [facility] Comment on above: Order Comment: Speci men Type: BLOOD SPECIMENOrdering Facility: [facility] Address: [address] [place] [address] Performed By: #### 5 7021-8 ####[facility] PINELLASNCLIA [id number] [place] [id number] [place] Nucleated RBC/100 WBC (Bld) [Ratio] 0.0 /100 WBC Normal [facility] Comment on above: Order Comment: Speci men Type: BLOOD SPECIMENOrdering Facility: [facility] Address: [address] [place] [address] Performed By: #### 5 7021-8 ####[facility] PINELLASNCYOHANAA [id number] [place] [address] [place] Platelet mean volume (Bld) [Entitic vol] 8.3 fL Low 9.0-12.7 [facility] Comment on above: Order Comment: Speci men Type: BLOOD SPECIMENOrdering Facility: [facility] Address: [address] [place] [address] Performed By: #### 5 7021-8 ####[facility] P[facility]LLASNCA [id number] [place] [address] [place] Platelets (Bld) [#/Vol] 252 10*3/uL Normal 150-400 [facility] Comment on above: Order Comment: Speci men Type: BLOOD SPECIMENOrdering Facility: [facility] Address: [address] [place] [address] Performed By: #### 5 7021-8 ####[facility] PINELLASNCLIA [id number] [place] [address] [place] RBC (Bld) [#/Vol] 4.24 10*6/uL Normal 4.20-6.00 [facility] Comment on above: Order Comment: Speci men Type: BLOOD SPECIMENOrdering Facility: [facility] Address: [address] [place] [address] Performed By: #### 5 7021-8 ####[facility] PINELLASNCLIA [id number] [place] [address] [place] WBC (Bld) [#/Vol] 4.98 10*3/uL Normal 3.70-11.00 [facility] Comment on above: Order Comment: Speci men Type: BLOOD SPECIMENOrdering Facility: [facility] Address: [address] [place] [address] Performed By: #### 5 7021-8 ####[facility]LLASNCGAR[facility] [id number] [place] [address] [place] Comprehensive metabolic 2000 panelon 08-26-2024 Albumin [Mass/Vol] 4.5 g/dL Normal 3.9-4.9 [facility] Comment on above: Order Comment: Speci men Type: BLOOD SPECIMENOrdering Facility: [facility] Address: [address] [place] [address] Performed By: #### 2 4323-8 ####[facility] [id number] [place] [address] [place] ALP [Catalytic activity/Vol] 102 U/L Normal 38-113 [facility] Comment on above: Order Comment: Speci men Type: BLOOD SPECIMENOrdering Facility: [facility] Address: [address] [place] [address] Performed By: #### 2 4323-8 ####[facility] [id number] [place] [address] [place] ALT [Catalytic activity/Vol] 23 U/L Normal 10-54 [facility] Comment on above: Order Comment: Speci men Type: BLOOD SPECIMENOrdering Facility: [facility] Address: [address] [place] [address] Performed By: #### 2 4323-8 ####[facility] [id number] [place] [address] [place] Anion gap [Moles/Vol] 5 mmol/L Low 8-15 [facility] Comment on above: Order Comment: Speci men Type: BLOOD SPECIMENOrdering Facility: [facility] Address: [address] [place] [address] Performed By: #### 2 4323-8 ####[facility] SAL[facility]ATORE MILLTOWNCLIA [id number] [place] [address] [place] AST [Catalytic activity/Vol] 20 U/L Normal 14-40 [facility] Comment on above: Order Comment: Speci men Type: BLOOD SPECIMENOrdering Facility: [facility] Address: [address] [place] [address] Performed By: #### 2 4323-8 ####[facility] [id number] [place] [address] [place] Bilirubin [Mass/Vol] 0.2 mg/dL Normal 0.2-1.3 [facility] Comment on above: Order Comment: Speci men Type: BLOOD SPECIMENOrdering Facility: [facility] Address: [address] [place] [address] Performed By: #### 2 4323-8 ####[facility] [id number] [place] [address] [place] Calcium [Mass/Vol] 9.9 mg/dL Normal 8.5-10.2 [facility] Comment on above: Order Comment: Speci men Type: BLOOD SPECIMENOrdering Facility: [facility] Address: [address] [place] [address] Performed By: #### 2 4323-8 ####[facility] MILLWNCLIA [id number] [place] [address] [place] Chloride [Moles/Vol] 105 mmol/L Normal 98-107 [facility] Comment on above: Order Comment: Speci men Type: BLOOD SPECIMENOrdering Facility: [facility] Address: [address] [place] [address] Performed By: #### 2 4323-8 ####[facility] MILLWNCLIA [id number] [place] [address] [place] CO2 [Moles/Vol] 28 mmol/L Normal 22-30 [facility] Comment on above: Order Comment: Speci men Type: BLOOD SPECIMENOrdering Facility: [facility] Address: [address] [place] [address] Performed By: #### 2 4323-8 ####[facility] [id number] [place] [address] [place] Creatinine [Mass/Vol] 0.77 mg/dL Normal 0.73-1.22 [facility] Comment on above: Order Comment: Speci men Type: BLOOD SPECIMENOrdering Facility: [facility] Address: [address] [place] [address] Performed By: #### 2 4323-8 ####[facility] [id number] [place] [address] [place] Creatinine and Glomerular filtration rate.predicted panel (S/P/Bld) 100 mL/min/1.73m??? Normal >=60 [facility] Comment on above: Order Comment: Fatoui men Type: BLOOD SPECIMENOrdering Facility: [facility] Address: [address] [place] [address] Result Comment: Kisha mated Glomerular Filtration Rate (eGFR) is calculated using the 2020 CKD-EPI creatinine equation. This equation utilizes serum creatinine, sex, and age as parameters. The creatinine assay has traceable calibration to isotope dilution-mass spectrometry. Refer to KDIGO guidelines for clinical interpretation. In patients with unstable renal function, e.g. those with acute kidney injury, the eGFR may not accurately reflect actual GFR. Performed By: #### 2 4323-8 ####[facility] [id number] [place] [address] [place] Glucose [Mass/Vol] 138 mg/dL High 74-99 [facility] Comment on above: Order Comment: Speci men Type: BLOOD SPECIMENOrdering Facility: [facility] Address: [address] [id number] Result Comment: The [place] Diabetes Association (ADA) provides guidance for cutoff values for fasting glucose and random glucose. The ADA defines fasting as no caloric intake for at least 8 hours. Fasting plasma glucose results between 100 to 125 mg/dL indicate increased risk for diabetes (prediabetes).Fasting plasma glucose results greater than or equal to 126 mg/dL meet the criteria for diagnosis of diabetes. In the absence of unequivocal hyperglycemia, results should be confirmed by repeat testing. In a patient with classic symptoms of hyperglycemia or hyperglycemic crisis, random plasma glucose results greater than or equal to 200 mg/dL meet the criteria for diagnosis of diabetes.Reference: Standards of Medical Care in Diabetes 2016, [place] Diabetes Association. Diabetes Care. 2016.39(Suppl 1). Performed By: #### 2 4323-8 ####[facility] [id number] [place] [address] [place] Potassium [Moles/Vol] 4.3 mmol/L Normal 3.7-5.1 [facility] Comment on above: Order Comment: Speci men Type: BLOOD SPECIMENOrdering Facility: [facility] Address: [address] [id number] Performed By: #### 2 4323-8 ####[facility] [id number] [place] [address] [place] Protein [Mass/Vol] 6.6 g/dL Normal 6.3-8.0 [facility] Comment on above: Order Comment: Speci men Type: BLOOD SPECIMENOrdering Facility: [facility] Address: [address] [id number] Performed By: #### 2 4323-8 ####[facility] [id number] [place] [address] [place] Sodium [Moles/Vol] 138 mmol/L Normal 136-144 [facility] Comment on above: Order Comment: Speci men Type: BLOOD SPECIMENOrdering Facility: [facility] Address: [address] [place] [address] Performed By: #### 2 4323-8 ####[facility] MILLTOWNCLIA [id number] [place] [address] [place] Urea nitrogen [Mass/Vol] 12 mg/dL Normal 9-24 [facility] Comment on above: Order Comment: Speci men Type: BLOOD SPECIMENOrdering Facility: [facility] Address: [address] [place] [address] Performed By: #### 2 4323-8 ####[facility] MILLTOWNCLIA [id number] [place] [address] [place] CBC W Auto Differential pane l (Bld)on 08-19-2024 Basophils (Bld) [#/Vol] 0.07 10*3/uL Normal <0.11 [facility] Comment on above: Order Comment: Speci men Type: BLOOD SPECIMENOrdering Facility: [facility] Address: [address] [place] [address] Performed By: #### 5 7021-8 ####[facility] MILLWNCLIA [id number] [place] [address] [place] Basophils/100 WBC (Bld) 1.0 % Normal [facility] Comment on above: Order Comment: Speci men Type: BLOOD SPECIMENOrdering Facility: [facility] Address: [address] [place] [address] Performed By: #### 5 7021-8 ####[facility] MILLTOWNCLIA [id number] [place] [address] [place] Differential cell count method Nom (Bld) Auto Normal [facility] Comment on above: Order Comment: Speci men Type: BLOOD SPECIMENOrdering Facility: [facility] Address: [address] [place] [address] Performed By: #### 5 7021-8 ####[facility] MILLTOWNCLIA [id number] [place] [address] [place] Eosinophils (Bld) [#/Vol] 0.12 10*3/uL Normal <0.46 [facility] Comment on above: Order Comment: Speci men Type: BLOOD SPECIMENOrdering Facility: [facility] Address: [address] [place] [address] Performed By: #### 5 7021-8 ####[facility] [id number] [place] [address] [place] Eosinophils/100 WBC (Bld) 1.8 % Normal [facility] Comment on above: Order Comment: Speci men Type: BLOOD SPECIMENOrdering Facility: [facility] Address: [address] [place] [address] Performed By: #### 5 7021-8 ####[facility] [id number] [place] [address] [place] Erythrocyte distribution width (RBC) [Ratio] 14.1 % Normal 11.5-15.0 [facility] Comment on above: Order Comment: Speci men Type: BLOOD SPECIMENOrdering Facility: [facility] Address: [address] [place] [address] Performed By: #### 5 7021-8 ####[facility] [id number] [place] [address] [place] Hematocrit (Bld) [Volume fraction] 39.9 % Normal 39.0-51.0 [facility] Comment on above: Order Comment: Speci men Type: BLOOD SPECIMENOrdering Facility: [facility] Address: [address] [place] [address] Performed By: #### 5 7021-8 ####[facility] [id number] [place] [address] [place] Hemoglobin (Bld) [Mass/Vol] 12.6 g/dL Low 13.0-17.0 [facility] Comment on above: Order Comment: Speci men Type: BLOOD SPECIMENOrdering Facility: [facility] Address: [address] [place] [address] Performed By: #### 5 7021-8 ####[facility] [id number] [place] [address] [place] Immature granulocytes (Bld) [#/Vol] 0.19 10*3/uL High <0.10 [facility] Comment on above: Order Comment: Speci men Type: BLOOD SPECIMENOrdering Facility: [facility] Address: [address] [place] [address] Performed By: #### 5 7021-8 ####[facility] [id number] [place] [address] [place] Immature granulocytes/100 WBC (Bld) 2.8 % Normal [facility] Comment on above: Order Comment: Speci men Type: BLOOD SPECIMENOrdering Facility: [facility] Address: [address] [place] [address] Performed By: #### 5 7021-8 ####[facility] [id number] [place] [address] [place] Lymphocytes (Bld) [#/Vol] 0.97 10*3/uL Low 1.00-4.00 [facility] Comment on above: Order Comment: Speci men Type: BLOOD SPECIMENOrdering Facility: [facility] Address: [address] [place] [address] Performed By: #### 5 7021-8 ####[facility] [id number] [place] [address] [place] Lymphocytes/100 WBC (Bld) 14.4 % Normal [facility] Comment on above: Order Comment: Speci men Type: BLOOD SPECIMENOrdering Facility: [facility] Address: [address] [place] [address] Performed By: #### 5 7021-8 ####[facility]CL[facility] [id number] [address] [place] [facility] MCH (RBC) [Entitic mass] 27.9 pg Normal 26.0-34.0 [facility] Comment on above: Order Comment: Speci men Type: BLOOD SPECIMENOrdering Facility: [facility] Address: [address] [place] [address] Performed By: #### 5 7021-8 ####[facility] [id number] [place] [address] [place] MCHC (RBC) [Mass/Vol] 31.6 g/dL Normal 30.5-36.0 [facility] Comment on above: Order Comment: Speci men Type: BLOOD SPECIMENOrdering Facility: [facility] Address: [address] [place] [address] Performed By: #### 5 7021-8 ####[facility] [id number] [place] [address] [place] MCV (RBC) [Entitic vol] 88.5 fL Normal 80.0-100.0 [facility] Comment on above: Order Comment: Speci men Type: BLOOD SPECIMENOrdering Facility: [facility] Address: [address] [place] [address] Performed By: #### 5 7021-8 ####[facility] [id number] [place] [address] [place] Monocytes (Bld) [#/Vol] 0.41 10*3/uL Normal <0.87 [facility] Comment on above: Order Comment: Speci men Type: BLOOD SPECIMENOrdering Facility: [facility] Address: [address] [place] [address] Performed By: #### 5 7021-8 ####[facility] [id number] [place] [address] [place] Monocytes/100 WBC (Bld) 6.1 % Normal [facility] Comment on above: Order Comment: Speci men Type: BLOOD SPECIMENOrdering Facility: [facility] Address: [address] [place] [address] Performed By: #### 5 7021-8 ####[facility] [id number] [place] [address] [place] Neutrophils (Bld) [#/Vol] 4.98 10*3/uL Normal 1.45-7.50 [facility] Comment on above: Order Comment: Speci men Type: BLOOD SPECIMENOrdering Facility: [facility] Address: [address] [place] [address] Performed By: #### 5 7021-8 ####[facility] [id number] [place] [address] [place] Neutrophils/100 WBC (Bld) 73.9 % Normal [facility] Comment on above: Order Comment: Speci men Type: BLOOD SPECIMENOrdering Facility: [facility] Address: [address] [place] [address] Performed By: #### 5 7021-8 ####[facility]LLASNCLI [id number] [place] [address] [place] Nucleated RBC (Bld) [#/Vol] 10*3/uL Normal <0.01 [facility] Comment on above: Order Comment: Speci men Type: BLOOD SPECIMENOrdering Facility: [facility] Address: [address] [place] [address] Performed By: #### 5 7021-8 ####[facility]ASNCL[facility] [id number] [place] [address] [place] Nucleated RBC/100 WBC (Bld) [Ratio] 0.0 /100 WBC Normal [facility] Comment on above: Order Comment: Speci men Type: BLOOD SPECIMENOrdering Facility: [facility] Address: [address] [place] [address] Performed By: #### 5 7021-8 ####[facility] KIESHAEtienneNCRAJEEV [id number] [place] [address] [place] Platelet mean volume (Bld) [Entitic vol] 8.4 fL Low 9.0-12.7 [facility] Comment on above: Order Comment: Speci men Type: BLOOD SPECIMENOrdering Facility: [facility] Address: [address] [place] [address] Performed By: #### 5 7021-8 ####[facility] P[facility]LLASNCYOHANAA [id number] [place] [address] [place] Platelets (Bld) [#/Vol] 237 10*3/uL Normal 150-400 [facility] Comment on above: Order Comment: Speci men Type: BLOOD SPECIMENOrdering Facility: [facility] Address: [address] [place] [address] Performed By: #### 5 7021-8 ####[facility]CL[facility] [id number] [place] [address] [place] RBC (Bld) [#/Vol] 4.51 10*6/uL Normal 4.20-6.00 [facility] Comment on above: Order Comment: Speci men Type: BLOOD SPECIMENOrdering Facility: [facility] Address: [address] [place] [address] Performed By: #### 5 7021-8 ####[facility]ASNCL[facility] [id number] [place] [address] [place] WBC (Bld) [#/Vol] 6.74 10*3/uL Normal 3.70-11.00 [facility] Comment on above: Order Comment: Speci men Type: BLOOD SPECIMENOrdering Facility: [facility] Address: [address] [place] [address] Performed By: #### 5 7021-8 ####[facility] [id number] [place] [address] [place] CNPNon 08-13-2024 CNPN Normal [facility] CBC W Auto Differential pane l (Bld)on 08-12-2024 Basophils (Bld) [#/Vol] 0.07 10*3/uL Normal <0.11 [facility] Comment on above: Order Comment: Speci men Type: BLOOD SPECIMENOrdering Facility: [facility] Address: [address] [place] [address] Performed By: #### 5 7021-8 ####[facility]DENITAGAR[facility] [id number] [place] [address] [place] Basophils/100 WBC (Bld) 0.8 % Normal [facility] Comment on above: Order Comment: Speci men Type: BLOOD SPECIMENOrdering Facility: [facility] Address: [address] [place] [address] Performed By: #### 5 7021-8 ####[facility]LLASDENITAA [id number] [place] [address] [place] Differential cell count method Nom (Bld) Auto Normal [facility] Comment on above: Order Comment: Speci men Type: BLOOD SPECIMENOrdering Facility: [facility] Address: [address] [place] [address] Performed By: #### 5 7021-8 ####[facility] [id number] [place] [address] [place] Eosinophils (Bld) [#/Vol] 10*3/uL Normal <0.46 [facility] Comment on above: Order Comment: Speci men Type: BLOOD SPECIMENOrdering Facility: [facility] Address: [address] [place] [address] Performed By: #### 5 7021-8 ####[facility] MILLWNCLIA [id number] [place] [address] [place] Eosinophils/100 WBC (Bld) 0.2 % Normal [facility] Comment on above: Order Comment: Speci men Type: BLOOD SPECIMENOrdering Facility: [facility] Address: [address] [place] [address] Performed By: #### 5 7021-8 ####[facility]LLASDENITALIA [id number] [place] [address] [place] Erythrocyte distribution width (RBC) [Ratio] 14.1 % Normal 11.5-15.0 [facility] Comment on above: Order Comment: Speci men Type: BLOOD SPECIMENOrdering Facility: [facility] Address: [address] [place] [address] Performed By: #### 5 7021-8 ####[facility] HEALTHCAREYOHANAA [id number] [place] [address] [place] Hematocrit (Bld) [Volume fraction] 41.7 % Normal 39.0-51.0 [facility] Comment on above: Order Comment: Speci men Type: BLOOD SPECIMENOrdering Facility: [facility] Address: [address] [place] [address] Performed By: #### 5 7021-8 ####[facility]LLASDENITALIA [id number] [place] [address] [place] Hemoglobin (Bld) [Mass/Vol] 13.3 g/dL Normal 13.0-17.0 [facility] Comment on above: Order Comment: Speci men Type: BLOOD SPECIMENOrdering Facility: [facility] Address: [address] [place] [address] Performed By: #### 5 7021-8 ####[facility] P[facility]LLASNCLIA [id number] [place] [address] [place] Immature granulocytes (Bld) [#/Vol] 0.07 10*3/uL Normal <0.10 [facility] Comment on above: Order Comment: Speci men Type: BLOOD SPECIMENOrdering Facility: [facility] Address: [address] [place] [address] Performed By: #### 5 7021-8 ####[facility] [id number] [place] [address] [place] Immature granulocytes/100 WBC (Bld) 0.8 % Normal [facility] Comment on above: Order Comment: Speci men Type: BLOOD SPECIMENOrdering Facility: [facility] Address: [address] [place] [address] Performed By: #### 5 7021-8 ####[facility] [id number] [place] [address] [place] Lymphocytes (Bld) [#/Vol] 0.76 10*3/uL Low 1.00-4.00 [facility] Comment on above: Order Comment: Speci men Type: BLOOD SPECIMENOrdering Facility: [facility] Address: [address] [place] [address] Performed By: #### 5 7021-8 ####[facility] [id number] [place] [address] [place] Lymphocytes/100 WBC (Bld) 9.1 % Normal [facility] Comment on above: Order Comment: Speci men Type: BLOOD SPECIMENOrdering Facility: [facility] Address: [address] [place] [address] Performed By: #### 5 7021-8 ####[facility] PINELLASNCA [id number] [place] [address] [place] MCH (RBC) [Entitic mass] 28.1 pg Normal 26.0-34.0 [facility] Comment on above: Order Comment: Speci men Type: BLOOD SPECIMENOrdering Facility: [facility] Address: [address] [place] [address] Performed By: #### 5 7021-8 ####[facility] MIGUEL [id number] [place] [address] [place] MCHC (RBC) [Mass/Vol] 31.9 g/dL Normal 30.5-36.0 [facility] Comment on above: Order Comment: Speci men Type: BLOOD SPECIMENOrdering Facility: [facility] Address: [address] [place] [address] Performed By: #### 5 7021-8 ####[facility] P[facility]LLASLEIGHTON [id number] [place] [address] [place] MCV (RBC) [Entitic vol] 88.0 fL Normal 80.0-100.0 [facility] Comment on above: Order Comment: Speci men Type: BLOOD SPECIMENOrdering Facility: [facility] Address: [address] [place] [address] Performed By: #### 5 7021-8 ####[facility] PINELLASJUANA [id number] [place] [address] [place] Monocytes (Bld) [#/Vol] 0.38 10*3/uL Normal <0.87 [facility] Comment on above: Order Comment: Speci men Type: BLOOD SPECIMENOrdering Facility: [facility] Address: [address] [place] [address] Performed By: #### 5 7021-8 ####[facility]LLASNCLIA [id number] [place] [address] [place] Monocytes/100 WBC (Bld) 4.6 % Normal [facility] Comment on above: Order Comment: Speci men Type: BLOOD SPECIMENOrdering Facility: [facility] Address: [address] [place] [address] Performed By: #### 5 7021-8 ####[facility] MILLWNCLIA [id number] [place] [address] [place] Neutrophils (Bld) [#/Vol] 7.05 10*3/uL Normal 1.45-7.50 [facility] Comment on above: Order Comment: Speci men Type: BLOOD SPECIMENOrdering Facility: [facility] Address: [address] [place] [address] Performed By: #### 5 7021-8 ####[facility] [id number] [place] [address] [place] Neutrophils/100 WBC (Bld) 84.5 % Normal [facility] Comment on above: Order Comment: Speci men Type: BLOOD SPECIMENOrdering Facility: [facility] Address: [address] [place] [address] Performed By: #### 5 7021-8 ####[facility] [id number] [place] [address] [place] Nucleated RBC (Bld) [#/Vol] 10*3/uL Normal <0.01 [facility] Comment on above: Order Comment: Speci men Type: BLOOD SPECIMENOrdering Facility: [facility] Address: [address] [place] [address] Performed By: #### 5 7021-8 ####[facility] [id number] [place] [address] [place] Nucleated RBC/100 WBC (Bld) [Ratio] 0.0 /100 WBC Normal [facility] Comment on above: Order Comment: Speci men Type: BLOOD SPECIMENOrdering Facility: [facility] Address: [address] [place] [address] Performed By: #### 5 7021-8 ####[facility]LLASNCL[facility] [id number] [place] [address] [place] JOY Platelet mean volume (Bld) [Entitic vol] 8.4 fL Low 9.0-12.7 [facility] Comment on above: Order Comment: Speci men Type: BLOOD SPECIMENOrdering Facility: [facility] Address: [address] [place] [address] Performed By: #### 5 7021-8 ####[facility]LLASNCLIA [id number] [place] [address] [place] Platelets (Bld) [#/Vol] 222 10*3/uL Normal 150-400 [facility] Comment on above: Order Comment: Speci men Type: BLOOD SPECIMENOrdering Facility: [facility] Address: [address] [place] [address] Performed By: #### 5 7021-8 ####[facility]LLASNCLIA [id number] [place] [address] [place] RBC (Bld) [#/Vol] 4.74 10*6/uL Normal 4.20-6.00 [facility] Comment on above: Order Comment: Speci men Type: BLOOD SPECIMENOrdering Facility: [facility] Address: [address] [place] [address] Performed By: #### 5 7021-8 ####[facility]LLASNCLIA [id number] [place] [address] [place] WBC (Bld) [#/Vol] 8.35 10*3/uL Normal 3.70-11.00 [facility] Comment on above: Order Comment: Speci men Type: BLOOD SPECIMENOrdering Facility: [facility] Address: [address] [place] [address] Performed By: #### 5 7021-8 ####[facility]LLASNCLIA [id number] [place] [address] [place] Comprehensive metabolic 2000 panelon 08-12-2024 Albumin [Mass/Vol] 4.5 g/dL Normal 3.9-4.9 [facility] Comment on above: Order Comment: Speci men Type: BLOOD SPECIMENOrdering Facility: [facility] Address: [address] [place] [address] Performed By: #### 2 4323-8 ####[facility] HOSPITALWNCLIA [id number] [place] [address] [place] ALP [Catalytic activity/Vol] 111 U/L Normal 38-113 [facility] Comment on above: Order Comment: Speci men Type: BLOOD SPECIMENOrdering Facility: [facility] Address: [address] [place] [address] Performed By: #### 2 4323-8 ####[facility] MILLWNCLIA [id number] [place] [address] [place] ALT [Catalytic activity/Vol] 19 U/L Normal 10-54 [facility] Comment on above: Order Comment: Speci men Type: BLOOD SPECIMENOrdering Facility: [facility] Address: [address] [place] [address] Performed By: #### 2 4323-8 ####[facility]ALTHCARELIA [id number] [place] [address] [place] Anion gap [Moles/Vol] 9 mmol/L Normal 8-15 [facility] Comment on above: Order Comment: Speci men Type: BLOOD SPECIMENOrdering Facility: [facility] Address: [address] [place] [address] Performed By: #### 2 4323-8 ####[facility] MILLTOWNCLIA [id number] [place] [address] [place] AST [Catalytic activity/Vol] 18 U/L Normal 14-40 [facility] Comment on above: Order Comment: Speci men Type: BLOOD SPECIMENOrdering Facility: [facility] Address: [address] [place] [address] Performed By: #### 2 4323-8 ####[facility] MILLTOWNCLIA [id number] [place] [address] [place] Bilirubin [Mass/Vol] 0.2 mg/dL Normal 0.2-1.3 [facility] Comment on above: Order Comment: Speci men Type: BLOOD SPECIMENOrdering Facility: [facility] Address: [address] [place] [address] Performed By: #### 2 4323-8 ####[facility] HOSPITALWNCLIA [id number] [place] [address] [place] Calcium [Mass/Vol] 10.6 mg/dL High 8.5-10.2 [facility] Comment on above: Order Comment: Speci men Type: BLOOD SPECIMENOrdering Facility: [facility] Address: [address] [place] [address] Performed By: #### 2 4323-8 ####[facility] HOSPITALWNCLIA [id number] [place] [address] [place] Chloride [Moles/Vol] 103 mmol/L Normal 98-107 [facility] Comment on above: Order Comment: Speci men Type: BLOOD SPECIMENOrdering Facility: [facility] Address: [address] [place] [address] Performed By: #### 2 4323-8 ####[facility] MILLTOWNCLIA [id number] [place] [address] [place] CO2 [Moles/Vol] 29 mmol/L Normal 22-30 [facility] Comment on above: Order Comment: Speci men Type: BLOOD SPECIMENOrdering Facility: [facility] Address: [address] [place] [address] Performed By: #### 2 4323-8 ####[facility] HOSPITALWNCLIA [id number] [place] [address] [place] Creatinine [Mass/Vol] 0.82 mg/dL Normal 0.73-1.22 [facility] Comment on above: Order Comment: Augustine zee Type: BLOOD SPECIMENOrdering Facility: [facility] Address: [address] [place] [address] Performed By: #### 2 4323-8 ####[facility] [id number] [place] [address] [place] Creatinine and Glomerular filtration rate.predicted panel (S/P/Bld) 98 mL/min/1.73m??? Normal >=60 [facility] Comment on above: Order Comment: Augustine zee Type: BLOOD SPECIMENOrdering Facility: [facility] Address: [address] [place] [address] Result Comment: Kisha mated Glomerular Filtration Rate (eGFR) is calculated using the 2020 CKD-EPI creatinine equation. This equation utilizes serum creatinine, sex, and age as parameters. The creatinine assay has traceable calibration to isotope dilution-mass spectrometry. Refer to KDIGO guidelines for clinical interpretation. In patients with unstable renal function, e.g. those with acute kidney injury, the eGFR may not accurately reflect actual GFR. Performed By: #### 2 4323-8 ####[facility] [id number] [place] [address] [place] Glucose [Mass/Vol] 129 mg/dL High 74-99 [facility] Comment on above: Order Comment: Augustine zee Type: BLOOD SPECIMENOrdering Facility: [facility] Address: [address] [place] [address] Result Comment: The [place] Diabetes Association (ADA) provides guidance for cutoff values for fasting glucose and random glucose. The ADA defines fasting as no caloric intake for at least 8 hours. Fasting plasma glucose results between 100 to 125 mg/dL indicate increased risk for diabetes (prediabetes).Fasting plasma glucose results greater than or equal to 126 mg/dL meet the criteria for diagnosis of diabetes. In the absence of unequivocal hyperglycemia, results should be confirmed by repeat testing. In a patient with classic symptoms of hyperglycemia or hyperglycemic crisis, random plasma glucose results greater than or equal to 200 mg/dL meet the criteria for diagnosis of diabetes.Reference: Standards of Medical Care in Diabetes 2016, [place] Diabetes Association. Diabetes Care. 2016.39(Suppl 1). Performed By: #### 2 4323-8 ####[facility] POPJUAN [id number] [place] [address] [place] Potassium [Moles/Vol] 4.4 mmol/L Normal 3.7-5.1 [facility] Comment on above: Order Comment: Speci men Type: BLOOD SPECIMENOrdering Facility: [facility] Address: [address] [place], [place] [address] Performed By: #### 2 4323-8 ####[facility]LLASLEIGHTON [id number] [place] [address] [place] Protein [Mass/Vol] 7.0 g/dL Normal 6.3-8.0 [facility] Comment on above: Order Comment: Speci men Type: BLOOD SPECIMENOrdering Facility: [facility] Address: [address] [place] [address] Performed By: #### 2 4323-8 ####[facility]LLASLEIGHTON [id number] [place] [address] [place] Sodium [Moles/Vol] 141 mmol/L Normal 136-144 [facility] Comment on above: Order Comment: Speci men Type: BLOOD SPECIMENOrdering Facility: [facility] Address: [address] [place] [address] Performed By: #### 2 4323-8 ####[facility] P[facility]LLASNCRAJEEV [id number] [place] [address] [place] Urea nitrogen [Mass/Vol] 13 mg/dL Normal 9-24 [facility] Comment on above: Order Comment: Speci men Type: BLOOD SPECIMENOrdering Facility: [facility] Address: [address] [place] [address] Performed By: #### 2 4323-8 ####[facility]ENTERNCLI [id number] [place] [address] [place] CNPNon 08-11-2024 CNPN Normal [facility] CNOVSPon 08-06-2024 CNOVSP Normal [facility] CNPNon 08-06-2024 CNPN Normal [facility] CNPTOUTREACHon 08-03-2024 CNPTOUTREACH Normal [facility] CNPNon 07-30-2024 CNPN Normal [facility] CNOVon 07-19-2024 CNOV Normal [facility] CNPNon 07-15-2024 CNPN Normal [facility] CNNURSEon 06-28-2024 CNNURSE Normal [facility] CNOVon 06-23-2024 CNOV Normal [facility] CNOVSPon 06-23-2024 CNOVSP Normal [facility] XR CHEST PA+LAT 2 VIEWSon XR CHEST PA+LAT 2 VIEWS EXAMINATION: XR CHEST PA+LAT 2 VIEWS 06/21/2024 03:37 PM CLINICAL HISTORY: Dyspnea ASSOCIATED DIAGNOSIS: Dyspnea, unspecified type ORDERING PROVIDER: ANNE-MARIE CONSTANTINO TECHNJULIO NOTE: COMPARISON: None FINDINGS: Cardiomediastinal silhouette: Nonenlarged. Lungs/Pleura: No focal pulmonary consolidation, effusion or pneumothorax. Slight hyperinflation from pulmonary emphysema is noted. Musculoskeletal: Metallic anchor in relationship to the right humeral head. Partially visualized lumbar fusion hardware. IMPRESSION: No acute cardiopulmonary abnormality identified. MACRO: None Normal [employer] XR Chest PA and Lateralon EXAMINATION: XR CHES T PA+LAT 2 VIEWS 06/21/2024 03:37 PM CLINICAL HISTORY: Dyspnea ASSOCIATED DIAGNOSIS: Dyspnea, unspecified type ORDERING PROVIDER: ANNE-MARIE CONSTANTINO TECHNJULIO NOTE: COMPARISON: None FINDINGS: Cardiomediastinal silhouette: Nonenlarged. Lungs/Pleura: No focal pulmonary consolidation, effusion or pneumothorax. Slight hyperinflation from pulmonary emphysema is noted. Musculoskeletal: Metallic anchor in relationship to the right humeral head. Partially visualized lumbar fusion hardware. IMPRESSION: No acute cardiopulmonary abnormality identified. MACRO: None RADIOLOGY Keke Chavez MD - 06/21/2024 EXAMINATION: XR CHEST PA+LAT 2 VIEWS 06/21/2024 03:37 PM CLINICAL HISTORY: Dyspnea ASSOCIATED DIAGNOSIS: Dyspnea, unspecified type ORDERING PROVIDER: ANNE-MARIE CONSTANTINO TECHNOLOGISTS NOTE: COMPARISON: None FINDINGS: Cardiomediastinal silhouette: Nonenlarged. Lungs/Pleura: No focal pulmonary consolidation, effusion or pneumothorax. Slight hyperinflation from pulmonary emphysema is noted. Musculoskeletal: Metallic anchor in relationship to the right humeral head. Partially visualized lumbar fusion hardware. IMPRESSION: No acute cardiopulmonary abnormality identified. MACRO: None [facility] Radiology Study observation (narrative) [facility] XR Chest PA and LateralOrder ed By: Keke Chavez on 06-21-2024 [facility] Work Phone: CNOVSPon 06-18-2024 CNOVSP Normal [facility] CNPNon 06-18-2024 CNPN Normal [facility] XR FEMUR 2V AP/LAT LTon 06-08 XR FEMUR 2V AP/LAT LT Normal [facility] 06-11-2024 CNPN Normal [facility] CBC W Auto Differential pane l (Bld)on 06-10-2024 Basophils (Bld) [#/Vol] 0.05 10*3/uL Normal <0.11 [facility] Comment on above: Order Comment: Speci men Type: BLOOD SPECIMENOrdering Facility: [facility] Address: [address] [place] [address] Performed By: #### 5 7021-8 ####[facility] LABORATORYCLIA [id number] [place] [address] [place] Basophils/100 WBC (Bld) 0.7 % Normal [facility] Comment on above: Order Comment: Speci men Type: BLOOD SPECIMENOrdering Facility: [facility] Address: [address] [place] [address] Performed By: #### 5 7021-8 ####[facility] LABORATORYCLIA [id number] [place] [address] [place] Differential cell count method Nom (Bld) Auto Normal [facility] Comment on above: Order Comment: Speci men Type: BLOOD SPECIMENOrdering Facility: [facility] Address: [address] [place] [address] Performed By: #### 5 7021-8 ####[facility] LABORATORYCLIA [id number] [address] Eosinophils (Bld) [#/Vol] 0.17 10*3/uL Normal <0.46 [facility] Comment on above: Order Comment: Speci men Type: BLOOD SPECIMENOrdering Facility: [facility] Address: [address] [place] [address] Performed By: #### 5 7021-8 ####[facility] LABORATORYCLIA [id number] [address] Eosinophils/100 WBC (Bld) 2.5 % Normal [facility] Comment on above: Order Comment: Speci men Type: BLOOD SPECIMENOrdering Facility: [facility] Address: [address] [place] [address] Performed By: #### 5 7021-8 ####[facility] LABORATORYCLIA [id number] [address] Erythrocyte distribution width (RBC) [Ratio] 12.6 % Normal 11.5-15.0 [facility] Comment on above: Order Comment: Speci men Type: BLOOD SPECIMENOrdering Facility: [facility] Address: [address] [place] [address] Performed By: #### 5 7021-8 ####[facility] LABORATORYCLIA [id number] [address] Hematocrit (Bld) [Volume fraction] 37.6 % Low 39.0-51.0 [facility] Comment on above: Order Comment: Speci men Type: BLOOD SPECIMENOrdering Facility: [facility] Address: [address] [place] [address] Performed By: #### 5 7021-8 ####[facility]ORATORYCLIA [id number] [address] Hemoglobin (Bld) [Mass/Vol] 12.8 g/dL Low 13.0-17.0 [facility] Comment on above: Order Comment: Speci men Type: BLOOD SPECIMENOrdering Facility: [facility] Address: [facility] [place] [address] Performed By: #### 5 7021-8 ####[facility]ORATORYCLIA [id number] [place] [address] [place] Immature granulocytes (Bld) [#/Vol] 10*3/uL Normal <0.10 [facility] Comment on above: Order Comment: Speci men Type: BLOOD SPECIMENOrdering Facility: [facility] Address: [address] [place] [address] Performed By: #### 5 7021-8 ####[facility]ORATORYCLIA [id number] [address] [place] Immature granulocytes/100 WBC (Bld) 0.3 % Normal [facility] Comment on above: Order Comment: Speci men Type: BLOOD SPECIMENOrdering Facility: [facility] Address: [address] [place] [address] Performed By: #### 5 7021-8 ####[facility]ORATORYCLIA [id number] [place] [address] [place] Lymphocytes (Bld) [#/Vol] 0.87 10*3/uL Low 1.00-4.00 [facility] Comment on above: Order Comment: Speci men Type: BLOOD SPECIMENOrdering Facility: [facility] Address: [address] [place] [address] Performed By: #### 5 7021-8 ####[facility]ORATORYCLIA [id number] [place] [address] [place] Lymphocytes/100 WBC (Bld) 12.6 % Normal [facility] Comment on above: Order Comment: Speci men Type: BLOOD SPECIMENOrdering Facility: [facility] Address: [address] [place] [address] Performed By: #### 5 7021-8 ####[facility]ORATORYCLIA [id number] [address] MCH (RBC) [Entitic mass] 29.0 pg Normal 26.0-34.0 [facility] Comment on above: Order Comment: Speci men Type: BLOOD SPECIMENOrdering Facility: [facility] Address: [address] [place] [address] Performed By: #### 5 7021-8 ####[facility] LABORATORYCLIA [id number] [address] [place] MCHC (RBC) [Mass/Vol] 34.0 g/dL Normal 30.5-36.0 [facility] Comment on above: Order Comment: Speci men Type: BLOOD SPECIMENOrdering Facility: [facility] Address: [address] [place] [address] Performed By: #### 5 7021-8 ####[facility] LABORATORYCLIA [id number] [address] STATES [facility] MCV (RBC) [Entitic vol] 85.1 fL Normal 80.0-100.0 [facility] Comment on above: Order Comment: Speci men Type: BLOOD SPECIMENOrdering Facility: [facility] Address: [address] [place] [address] Performed By: #### 5 7021-8 ####[facility]ORATORYCLIA [id number] [address] Monocytes (Bld) [#/Vol] 0.64 10*3/uL Normal <0.87 [facility] Comment on above: Order Comment: Speci men Type: BLOOD SPECIMENOrdering Facility: [facility] Address: [address] [place] [address] Performed By: #### 5 7021-8 ####[facility]ORATORYCLIA [id number] [address] Monocytes/100 WBC (Bld) 9.2 % Normal [facility] Comment on above: Order Comment: Speci men Type: BLOOD SPECIMENOrdering Facility: [facility] Address: [address] [place] [address] Performed By: #### 5 7021-8 ####[facility]ORATORYCLIA [id number] [address] [place] Neutrophils (Bld) [#/Vol] 5.18 10*3/uL Normal 1.45-7.50 [facility] Comment on above: Order Comment: Speci men Type: BLOOD SPECIMENOrdering Facility: [facility] Address: [address] [place] [address] Performed By: #### 5 7021-8 ####[facility] LABORATORYCLIA [id number] [address] STATES [facility] Neutrophils/100 WBC (Bld) 74.7 % Normal [facility] Comment on above: Order Comment: Speci men Type: BLOOD SPECIMENOrdering Facility: [facility] Address: [address] [place] [address] Performed By: #### 5 7021-8 ####[facility]ORATORYCLIA [id number] [address] Nucleated RBC (Bld) [#/Vol] 10*3/uL Normal <0.01 [facility] Comment on above: Order Comment: Speci men Type: BLOOD SPECIMENOrdering Facility: [facility] Address: [address] [place] [address] Performed By: #### 5 7021-8 ####[facility]ORATORYCLIA [id number] [address] Nucleated RBC/100 WBC (Bld) [Ratio] 0.0 /100 WBC Normal [facility] Comment on above: Order Comment: Speci men Type: BLOOD SPECIMENOrdering Facility: [facility] Address: [address] [place] [address] Performed By: #### 5 7021-8 ####[facility]ORATORYCLIA [id number] [address] Platelet mean volume (Bld) [Entitic vol] 8.8 fL Low 9.0-12.7 [facility] Comment on above: Order Comment: Speci men Type: BLOOD SPECIMENOrdering Facility: [facility] Address: [address] [place] [address] Performed By: #### 5 7021-8 ####[facility]ORATORYCLIA [id number] [address] Platelets (Bld) [#/Vol] 225 10*3/uL Normal 150-400 [facility] Comment on above: Order Comment: Speci men Type: BLOOD SPECIMENOrdering Facility: [facility] Address: [address] [place] [address] Performed By: #### 5 7021-8 ####[facility] LABORATORYCLIA [id number] [address] OF [facility] RBC (Bld) [#/Vol] 4.42 10*6/uL Normal 4.20-6.00 [facility] Comment on above: Order Comment: Speci men Type: BLOOD SPECIMENOrdering Facility: [facility] Address: [address] [place] [address] Performed By: #### 5 7021-8 ####[facility] LABORATORYCLIA [id number] [address] STATES OF [facility] WBC (Bld) [#/Vol] 6.93 10*3/uL Normal 3.70-11.00 [facility] Comment on above: Order Comment: Speci men Type: BLOOD SPECIMENOrdering Facility: [facility] Address: [address] [place] [address] Performed By: #### 5 7021-8 ####[facility] LABORATORYCLIA [id number] [address] [place] CK SerPl-cCncon 06-10-2024 CK [Catalytic activity/Vol] 63 U/L Normal 51-298 [facility] Comment on above: Order Comment: Speci men Type: BLOOD SPECIMEN Ordering Facility: [facility] Address: [address] [place] [address] Performed By: #### 1 9123-9, 56942-3, 2157-6 #### [facility] CLIA [id number] [address] OF [facility] Comprehensive metabolic 2000 panelon 06-10-2024 Albumin [Mass/Vol] 4.2 g/dL Normal 3.9-4.9 [facility] Comment on above: Order Comment: Speci men Type: BLOOD SPECIMEN Ordering Facility: [facility] Address: [address] [place] [address] Performed By: #### 1 9123-9, 45261-2, 2157-02 #### [facility] CLIA [id number] [address] [place] ALP [Catalytic activity/Vol] 126 U/L High 38-113 [facility] Comment on above: Order Comment: Speci men Type: BLOOD SPECIMEN Ordering Facility: [facility] Address: [address] [place] [address] Performed By: #### 1 9123-9, 58404-0, 2157-02 #### [facility] CLIA [id number] [address] ALT With P-5'-P [Catalytic activity/Vol] 23 U/L Normal 10-54 [facility] Comment on above: Order Comment: Speci men Type: BLOOD SPECIMEN Ordering Facility: [facility] Address: [address] [place] [address] Performed By: #### 1 9123-9, 59341-3, 2157-02 #### [facility] CLIA [id number] [address] Anion gap [Moles/Vol] 12 mmol/L Normal 8-15 [facility] Comment on above: Order Comment: Speci men Type: BLOOD SPECIMEN Ordering Facility: [facility] Address: [address] [place] [address] Performed By: #### 1 9123-9, 73198-3, 2157-02 #### [facility] CLIA [id number] [address] [place] AST With P-5'-P [Catalytic activity/Vol] 19 U/L Normal 14-40 [facility] Comment on above: Order Comment: Speci men Type: BLOOD SPECIMEN Ordering Facility: [facility] Address: [address] [place] [address] Performed By: #### 1 9123-9, , 2157-02 #### [facility] CLIA [id number] [address] [place] [address] [place] Bilirubin [Mass/Vol] 0.5 mg/dL Normal 0.2-1.3 [facility] Comment on above: Order Comment: Speci men Type: BLOOD SPECIMEN Ordering Facility: [facility] Address: [address] [place] [address] Performed By: #### 1 9123-9, , 2157-02 #### [facility] CLIA [id number] [address] [place] [address] [place] Calcium [Mass/Vol] 9.8 mg/dL Normal 8.5-10.2 [facility] Comment on above: Order Comment: Speci men Type: BLOOD SPECIMEN Ordering Facility: [facility] Address: [address] [place] [address] Performed By: #### 1 9123-9, , 2157-02 #### [facility] CLIA [id number] [address] [place] [address] [place] Chloride [Moles/Vol] 103 mmol/L Normal 98-107 [facility] Comment on above: Order Comment: Speci men Type: BLOOD SPECIMEN Ordering Facility: [facility] Address: [address] [place] [address] Performed By: #### 1 9123-9, 20118-0, 2157-02 #### [facility] CLIA [id number] [address] [place] [address] [place] CO2 [Moles/Vol] 24 mmol/L Normal 22-30 [facility] Comment on above: Order Comment: Speci men Type: BLOOD SPECIMEN Ordering Facility: [facility] Address: [address] [place] [address] Performed By: #### 1 9123-9, 17756-6, 2157-02 #### [facility] CLIA [id number] [address] STATES OF [facility] Creatinine [Mass/Vol] 0.83 mg/dL Normal 0.73-1.22 [facility] Comment on above: Order Comment: Augustine zee Type: BLOOD SPECIMEN Ordering Facility: [facility] Address: [address] [place] [address] Performed By: #### 1 9123-9, 57952-5, 2157-02 #### [facility] CLIA [id number] [address] Creatinine and Glomerular filtration rate.predicted panel (S/P/Bld) 98 mL/min/1.73m??? Normal >=60 [facility] Comment on above: Order Comment: Augustine zee Type: BLOOD SPECIMEN Ordering Facility: [facility] Address: [address] [place] [address] Result Comment: Kisha mated Glomerular Filtration Rate (eGFR) is calculated using the 2020 CKD-EPI creatinine equation. This equation utilizes serum creatinine, sex, and age as parameters. The creatinine assay has traceable calibration to isotope dilution-mass spectrometry. Refer to KDIGO guidelines for clinical interpretation. In patients with unstable renal function, e.g. those with acute kidney injury, the eGFR may not accurately reflect actual GFR. Performed By: #### 1 9123-9, 38833-4, 2157-02 #### [facility] CLIA [id number] [address] [place] Glucose [Mass/Vol] 119 mg/dL High 74-99 [facility] Comment on above: Order Comment: Augustine zee Type: BLOOD SPECIMEN Ordering Facility: [facility] Address: [address] [place] [address] Result Comment: The [place] Diabetes Association (ADA) provides guidance for cutoff values for fasting glucose and random glucose. The ADA defines fasting as no caloric intake for at least 8 hours. Fasting plasma glucose results between 100 to 125 mg/dL indicate increased risk for diabetes (prediabetes). Fasting plasma glucose results greater than or equal to 126 mg/dL meet the criteria for diagnosis of diabetes. In the absence of unequivocal hyperglycemia, results should be confirmed by repeat testing. In a patient with classic symptoms of hyperglycemia or hyperglycemic crisis, random plasma glucose results greater than or equal to 200 mg/dL meet the criteria for diagnosis of diabetes. Reference: Standards of Medical Care in Diabetes 2016, [place] Diabetes Association. Diabetes Care. 2016.39(Suppl 1). Performed By: #### 1 9123-9, 07083-1, 2157-02 #### [facility] CLIA [id number] [address] [place] [address] [place] Potassium [Moles/Vol] 4.0 mmol/L Normal 3.7-5.1 [facility] Comment on above: Order Comment: Augustine zee Type: BLOOD SPECIMEN Ordering Facility: [facility] Address: [address] [place] [address] Performed By: #### 1 9123-9, , 2157-02 #### [facility] CLIA [id number] [address] [place] [address] [place] Protein [Mass/Vol] 7.1 g/dL Normal 6.3-8.0 [facility] Comment on above: Order Comment: Augustine zee Type: BLOOD SPECIMEN Ordering Facility: [facility] Address: [address] [place] [address] Performed By: #### 1 9123-9, , 2157-02 #### [facility] CLIA [id number] [address] [place] [address] [place] Sodium [Moles/Vol] 139 mmol/L Normal 136-144 [facility] Comment on above: Order Comment: Augustine zee Type: BLOOD SPECIMEN Ordering Facility: [facility] Address: [address] [place] [address] Performed By: #### 1 9123-9, , 2157-02 #### [facility] CLIA [id number] [address] [place] Urea nitrogen [Mass/Vol] 10 mg/dL Normal 9-24 [facility] Comment on above: Order Comment: Fatoui men Type: BLOOD SPECIMEN Ordering Facility: [facility] Address: [address] [place] [address] Performed By: #### 1 9123-9, 45478-8, 2157-6 #### [facility] CLIA [id number] [address] STATES OF [facility] ECG COMPLETEon 06-10-2024 ECG COMPLETE Ventricular Rate : 9 1 BPM Atrial Rate : 91 BPM P-R Interval : 154 ms QRS Duration : 78 ms Q-T Interval : 362 ms QTC Calculation(Bazett) : 445 ms Calculated P [place] : 65 degrees Calculated R [place] : 21 degrees Calculated T [place] : 59 degrees NORMAL SINUS RHYTHM POSSIBLE LEFT ATRIAL ENLARGEMENT LOW VOLTAGE QRS BORDERLINE ECG NO PREVIOUS ECGS AVAILABLE Confirmed by MD AVALOS PATRICIA ([id number]) on 06/10/2024 4:56:36 PM NAME : CHUN ALCARAZ PID : [id number] : 1960 Gender : Male Race : ORD : [id number] Procedure Date : Jun 10 2024 14:13:27 Edit Date : Jun 10 2024 16:56:40 Diagnosis: NORMAL SINUS RHYTHM POSSIBLE LEFT ATRIAL ENLARGEMENT LOW VOLTAGE QRS BORDERLINE ECG NO PREVIOUS ECGS AVAILABLE Confirmed by MD AVALOS PATRICIA ([id number]) on 06/10/2024 4:56:36 PM Test Reason : Chest Pain Location : 4 : [facility] EM Overread By : MD AVALOS PATRICIA Edited By : MD AVALOS PATRICIA Referred By : , Acquired by : JAVED RODRIGUEZ [facility] ED NOTEon 06-10-2024 ED NOTE HNO ID: [id number] Author: GINNA BUCHANAN RN Service: Emergency Medicine Author Type: Registered Nurse Type: ED Notes Filed: 06/10/2024 17:16 Note Text: This nurse bedside to place IV for pain medication. Pt states that he does not want IV and that he wants something PO so he can be discharged home. notified. [facility] ED NOTE HNO ID: [id number] Author: BENJAMIN CAPONE RN Service: ? Author Type: Registered Nurse Type: ED Notes Filed: 06/10/2024 16:17 Note Text: Bed: 28-ED Expected date: Expected time: Means of arrival: Comments: triage Normal [facility] ED NOTE HNO ID: [id number] Author: LAWRENCE DAMIAN RN Service: ? Author Type: Registered Nurse Type: ED Notes Filed: 06/10/2024 14:14 Note Text: Chemo//keep in IWR Normal [facility] ED PROV NOTEon 06-10-2024 ED PROV NOTE HNO ID: [id number] Author: ERNIE AVALOS MD Service: Emergency Medicine Author Type: Physician Type: ED Provider Notes Filed: 06/10/2024 21:07 Note Text: Attending Note CC: Pain HPI:64 year old male history of non-small cell lung cancer, stage III, prostate cancer, presents to the emergency department with worsening myalgias and pain. Patient reports he had previously been on NSAIDs, then tramadol, then Vicodin, but states this is not controlling his pain at home. He denies any 1 area of worsening pain, no new falls or traumas, no numbness tingling or weakness of the extremities. He states that he had does not really have any pain at rest, but whenever he attempts attempts to get up, or places any load on his arms or legs he develops pain. No joint swelling. No fevers or chills. No history of DVT or PEs. No new chest pain or shortness of breath. No saddle anesthesias no bowel or bladder incontinence. History obtained from Patient Physical Exam General appearance: Well-developed male lying in bed in no acute distress. Psychiatric: Alert and Oriented x 3, conversational. Affect : normal Skin: Warm, dry, intact. Good turgor. No rashes HEENT: Normocephalic, atraumatic, Neck: Supple. Trachea midline. No stridor. Cardiovascular: RRR. S1 and S2 heard. No murmurs, rubs or gallops. Respiratory: Respirations nonlabored. CTAB. No wheezes rales or rhonchi. Abdomen: Soft. Nontender/nondistended with bowel sounds present. No rebound, rigidity, or guarding. Extremities: Distal pulses 2/4. Capillary refills less than 5 seconds. No edema, cyanosis, or clubbing. Negative Homans' sign bilaterally. No pain to palpation of the bilateral upper extremities or lower extremities. Normal range of motion of the bilateral upper and lower extremities. No deformities noted. No joint effusions noted. Neurological: Cranial nerves II through XII grossly intact, moves all extremities equally. Sensation is equal and intact in all extremities. Strength 5/5 and intact in all extremities. ED course: I personally performed a history and physical examination the patient and discussed management with the resident physician/PA/AUTOMOBILE DETAILER. I reviewed the resident/PA/AUTOMOBILE DETAILER's note and agree with documented findings and plan of care, unless otherwise listed above. I supervised procedures performed by resident physician/PA/AUTOMOBILE DETAILER. EKG was normal sinus rhythm. CBC CMP magnesium CK UA levels were obtained and significant only for mild anemia hemoglobin 12.8, alk phos elevated at 126. Patient does not wish for any IV medication, IV placement, or any additional imaging. He reports he is strictly interested in obtaining pain control and wants to try something orally first. He was given oxycodone. If this does not work he is agreeable to trying IM medication. -- On reevaluation patient reports he did have some improvement in pain. Will prescribe oxycodone for home. Patient reports he is ready for discharge. Return precautions given. ERNIE AVALOS 06/10/24 2107 Normal [facility] ED PROV NOTE HNO ID: [id number] Author: ERNIE AVALOS MD Service: Emergency Medicine Author Type: Resident Type: ED Provider Notes Filed: 07/06/2024 15:03 Note Text: Attestation signed by Ernie Avalos MD at 07/06/2024 3:03 PM Attending Note I evaluated the patient and personally participated in the bautista components. I agree with the resident's findings and plan with the following revisions and/or additions: Please see my separate note Signature: Ernie Avalos MD Date: 07/06/2024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 (more content not included)... Normal [facility] CNOVSPon 06-04-2024 CNOVSP Normal [facility] CNPNon 06-04-2024 [facility] Normal [facility] GLUCOSE, BLOOD (POC)on 05-31 Glucose [Mass/Vol] 115 mg/dL Abnormal 74 - 99 mg/dL [facility] Comment on above: Location:[facility], [facility] [place], [address] The Accu-Chek Inform II glucose meter has not been approved for testing on patients receiving intensive medical intervention or therapy and results from this point of care glucose test should not be used for patient management decisions in these cases. Inaccurate results may also occur from other interfering factors, such as N-acetylcysteine (blood concentrations of greater than 5mg/dL), galactose, extremes of hematocrit (<10 or >65), or high doses of ascorbic acid (vitamin C) greater than 3mg/dL. Consider alternate testing mechanisms (e.g. core lab, blood gas instrument) in the above situations. 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 EXAM CATEGORY: Subsequent treatment strategy. TECHNIQUE: Radiopharmaceutical was administered intravenously followed by PET imaging from the eyes to thighs. Free breathing, low dose CT of the same body region was acquired without IV contrast for attenuation correction and anatomic localization. Unenhanced imaging is limited for the evaluation of some pathology and the acquired CT was not designed to produce diagnostic CT scan quality. Physiologic/non-pathol ogic uptake in some body regions could confound or obscure some pathology. * CT Dose-Length Product (DLP): 403 mGy*cm * CT Dose Reduction Employed: Yes * Blood glucose: 115 mg/dL * Injected activity: 13.3 mCi * Uptake Time: 46 minutes * Radiopharmaceutical: [id number] (FDG) COMPARISON: FDG PET/CT 09/02/2023 CORRELATION: CT chest of 02/26/2024 RESULT: REFERENCES: FDG uptake is used as a surrogate marker for glucose metabolism. All reported standardized uptake values represent maximum SUV (SUVmax) per body weight, unless otherwise specified. SUV reference values, as follows: * Blood Pool (Descending Aorta): SUVmax 2.1 * Background Liver: SUVmax 3.1; SUVmean 2.4 Localizer Images: No additional findings. HEAD AND NECK: Head: No radiotracer avid lesion or mass effect in the imaged intracranial compartment. Aerodigestive Tract: No radiotracer avid lesion. Lymph Nodes: No radiotracer avid lymphadenopathy. Neck Soft Tissues: Diffuse FDG uptake in the thyroid, likely inflammatory CHEST: Lungs and Pleura: Decreased size and resolved FDG uptake of the right upper lobe nodule, 1.5 x 1.0 cm, no FDG uptake, prior 17x 1.4 cm, SUV 8.3. Decreased FDG uptake in left lower lobe superior segment nodule, 1.0 cm, SUV 1.9, prior SUV 2.8 Lymph Nodes: Decreased FDG avid mediastinal and hilar adenopathy, for example: * Left hilar, SUV 4.7, prior SUV 10.2 * Right posterior hilar, SUV 3.2, prior SUV 4.7 Mediastinum: No radiotracer avid mass. Cardiovascular: Blood pool activity. No pericardial effusion. Normal heart size. Chest Wall: No radiotracer avid soft tissue lesion. ABDOMEN AND PELVIS: Hepatobiliary: No radiotracer avid lesion. No measurable mass. Spleen: No radiotracer avid lesion. No splenomegaly. Pancreas: No radiotracer avid lesion. Adrenals: No radiotracer avid nodule. Urinary Tract: Physiologic radiotracer excretion in the renal collecting systems and urinary bladder. No hydronephrosis. GI Tract: No radiotracer avid lesion. No bowel dilation. Peritoneum: No radiotracer avid lesion. No ascites. Lymph Nodes: No radiotracer avid lymphadenopathy. Vasculature: Blood pool activity. Pelvic Organs: No radiotracer avid lesion. Brachytherapy seeds in the prostate MUSCULOSKELETAL: Bones: New multiple FDG avid osseous lesions, for example: * Left pedicle of T3 with lytic changes on CT, SUV 5.6 * S1 vertebra with sclerotic changes, SUV 6.5 * Right ischium with sclerotic osseous changes, SUV 2.9 * Left proximal femur, SUV 5.3 Post fixation changes in the lumbar spine. Soft Tissues: New FDG avid subcutaneous soft tissue lesion in the midline upper back at the level of T1, SUV 4.9 IMPRESSION: HEAD/NECK: * New diffuse FDG uptake in the thyroid gland, likely inflammatory CHEST: * Decreased size and FDG uptake of right upper lobe pulmonary nodule. * Decreased FDG uptake of left lower lobe superior segment pulmonary nodule. * Decreased FDG uptake of mediastinal and hilar adenopathy. ABDOMEN/PELVIS: * No FDG avid disease. MUSCULOSKELETAL: * New multiple FDG avid osseous lesions, probably metastatic. * New FDG avid subcutaneous lesion in the midline upper back at the level of T1 vertebra, indeterminate, possibly infectious/inflammator y. Research Chef: NOHEMY Transcribe Date/Time: May 31 2024 12:56P Dictated by : LYLE WELLS MD This examination was interpreted and the report reviewed and electronically signed by: LYLE WELLS MD on May 31 2024 2:02PM EST [id number] [facility] PET+CT Guidance for localiza tion of tumor of Skull base to mid-thigh-- W [id number] Xavi 05-31-2024 IMPRESSION: HEAD/NECK: * New diffuse FDG uptake in the thyroid gland, likely inflammatory CHEST: * Decreased size and FDG uptake of right upper lobe pulmonary nodule. * Decreased FDG uptake of left lower lobe superior segment pulmonary nodule. * Decreased FDG uptake of mediastinal and hilar adenopathy. ABDOMEN/PELVIS: * No FDG avid disease. MUSCULOSKELETAL: * New multiple FDG avid osseous lesions, probably metastatic. * New FDG avid subcutaneous lesion in the midline upper back at the level of T1 vertebra, indeterminate, possibly infectious/inflammator y. 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 EXAM CATEGORY: Subsequent treatment strategy. TECHNIQUE: Radiopharmaceutical was administered intravenously followed by PET imaging from the eyes to thighs. Free breathing, low dose CT of the same body region was acquired without IV contrast for attenuation correction and anatomic localization. Unenhanced imaging is limited for the evaluation of some pathology and the acquired CT was not designed to produce diagnostic CT scan quality. Physiologic/non-pathol ogic uptake in some body regions could confound or obscure some pathology. * CT Dose-Length Product (DLP): 403 mGy*cm * CT Dose Reduction Employed: Yes * Blood glucose: 115 mg/dL * Injected activity: 13.3 mCi * Uptake Time: 46 minutes * Radiopharmaceutical: [id number] (FDG) COMPARISON: FDG PET/CT 09/02/2023 CORRELATION: CT chest of 02/26/2024 RESULT: REFERENCES: FDG uptake is used as a surrogate marker for glucose metabolism. All reported standardized uptake values represent maximum SUV (SUVmax) per body weight, unless otherwise specified. SUV reference values, as follows: * Blood Pool (Descending Aorta): SUVmax 2.1 * Background Liver: SUVmax 3.1; SUVmean 2.4 Localizer Images: No additional findings. HEAD AND NECK: Head: No radiotracer avid lesion or mass effect in the imaged intracranial compartment. Aerodigestive Tract: No radiotracer avid lesion. Lymph Nodes: No radiotracer avid lymphadenopathy. Neck Soft Tissues: Diffuse FDG uptake in the thyroid, likely inflammatory CHEST: Lungs & Pleura: Decreased size and resolved FDG uptake of the right upper lobe nodule, 1.5 x 1.0 cm, no FDG uptake, prior 17x 1.4 cm, SUV 8.3. Decreased FDG uptake in left lower lobe superior segment nodule, 1.0 cm, SUV 1.9, prior SUV 2.8 Lymph Nodes: Decreased FDG avid mediastinal and hilar adenopathy, for example: * Left hilar, SUV 4.7, prior SUV 10.2 * Right posterior hilar, SUV 3.2, prior SUV 4.7 Mediastinum: No radiotracer avid mass. Cardiovascular: Blood pool activity. No pericardial effusion. Normal heart size. Chest Wall: No radiotracer avid soft tissue lesion. ABDOMEN AND PELVIS: Hepatobiliary: No radiotracer avid lesion. No measurable mass. Spleen: No radiotracer avid lesion. No splenomegaly. Pancreas: No radiotracer avid lesion. Adrenals: No radiotracer avid nodule. Urinary Tract: Physiologic radiotracer excretion in the renal collecting systems and urinary bladder. No hydronephrosis. GI Tract: No radiotracer avid lesion. No bowel dilation. Peritoneum: No radiotracer avid lesion. No ascites. Lymph Nodes: No radiotracer avid lymphadenopathy. Vasculature: Blood pool activity. Pelvic Organs: No radiotracer avid lesion. Brachytherapy seeds in the prostate MUSCULOSKELETAL: Bones: New multiple FDG avid osseous lesions, for example: * Left pedicle of T3 with lytic changes on CT, SUV 5.6 * S1 vertebra with sclerotic changes, SUV 6.5 * Right ischium with sclerotic osseous changes, SUV 2.9 * Left proximal femur, SUV 5.3 Post fixation changes in the lumbar spine. 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 EXAM CATEGORY: Subsequent treatment strategy. TECHNIQUE: Radiopharmaceutical was administered intravenously followed by PET imaging from the eyes to thighs. Free breathing, low dose CT of the same body region was acquired without IV contrast for attenuation correction and anatomic localization. Unenhanced imaging is limited for the evaluation of some pathology and the acquired CT was not designed to produce diagnostic CT scan quality. Physiologic/non-pathol ogic uptake in some body regions could confound or obscure some pathology. * CT Dose-Length Product (DLP): 403 mGy*cm * CT Dose Reduction Employed: Yes * Blood glucose: 115 mg/dL * Injected activity: 13.3 mCi * Uptake Time: 46 minutes * Radiopharmaceutical: Y33-Dnxqknhyqaodnnktaq (FDG) COMPARISON: FDG PET/CT 09/02/2023 CORRELATION: CT chest of 02/26/2024 RESULT: REFERENCES: FDG uptake is used as a surrogate marker for glucose metabolism. All reported standardized uptake values represent maximum SUV (SUVmax) per body weight, unless otherwise specified. SUV reference values, as follows: * Blood Pool (Descending Aorta): SUVmax 2.1 * Background Liver: SUVmax 3.1; SUVmean 2.4 Localizer Images: No additional findings. HEAD AND NECK: Head: No radiotracer avid lesion or mass effect in the imaged intracranial compartment. Aerodigestive Tract: No radiotracer avid lesion. Lymph Nodes: No radiotracer avid lymphadenopathy. Neck Soft Tissues: Diffuse FDG uptake in the thyroid, likely inflammatory CHEST: Lungs & Pleura: Decreased size and resolved FDG uptake of the right upper lobe nodule, 1.5 x 1.0 cm, no FDG uptake, prior 17x 1.4 cm, SUV 8.3. Decreased FDG uptake in left lower lobe superior segment nodule, 1.0 cm, SUV 1.9, prior SUV 2.8 Lymph Nodes: Decreased FDG avid mediastinal and hilar adenopathy, for example: * Left hilar, SUV 4.7, prior SUV 10.2 * Right posterior hilar, SUV 3.2, prior SUV 4.7 Mediastinum: No radiotracer avid mass. Cardiovascular: Blood pool activity. No pericardial effusion. Normal heart size. Chest Wall: No radiotracer avid soft tissue lesion. ABDOMEN AND PELVIS: Hepatobiliary: No radiotracer avid lesion. No measurable mass. Spleen: No radiotracer avid lesion. No splenomegaly. Pancreas: No radiotracer avid lesion. Adrenals: No radiotracer avid nodule. Urinary Tract: Physiologic radiotracer excretion in the renal collecting systems and urinary bladder. No hydronephrosis. GI Tract: No radiotracer avid lesion. No bowel dilation. Peritoneum: No radiotracer avid lesion. No ascites. Lymph Nodes: No radiotracer avid lymphadenopathy. Vasculature: Blood pool activity. Pelvic Organs: No radiotracer avid lesion. Brachytherapy seeds in the prostate MUSCULOSKELETAL: Bones: New multiple FDG avid osseous lesions, for example: * Left pedicle of T3 with lytic changes on CT, SUV 5.6 * S1 vertebra with sclerotic changes, SUV 6.5 * Right ischium with sclerotic osseous changes, SUV 2.9 * Left proximal femur, SUV 5.3 Post fixation changes in the lumbar spine. Soft Tissues: New FDG avid subcutaneous soft tissue lesion in the midline upper back at the level of T1, SUV 4.9 IMPRESSION IMPRESSION: HEAD/NECK: * New diffuse FDG uptake in the thyroid gland, likely inflammatory CHEST: * Decreased size and FDG uptake of right upper lobe pulmonary nodule. * Decreased FDG uptake of left lower lobe superior segment pulmonary nodule. * Decreased FDG uptake of mediastinal and hilar adenopathy. ABDOMEN/PELVIS: * No FDG avid disease. MUSCULOSKELETAL: * New multiple FDG avid osseous lesions, probably metastatic. * New FDG avid subcutaneous lesion in the midline upper back at the level of T1 vertebra, indeterminate, possibly infectious/inflammator y. Research Chef: PSCB Transcribe Date/Time: May 31 2024 12:56P Dictated by : LYLE WELLS MD This examination was interpreted and the report reviewed and electronically signed by: LYLE WELLS MD on May 31 2024 2:02PM EST [facility] Radiology Study observation (narrative) [facility] PET+CT Guidance for localiza tion of tumor of Skull base to mid-thigh-- W 18F-FDG IVOrdered By: Ccf Provider on 05-31-2024 [facility] CBC W Auto Differential pane l (Bld)on 05-27-2024 Basophils (Bld) [#/Vol] 0.06 10*3/uL Normal <0.11 [facility] Comment on above: Order Comment: Speci men Type: BLOOD SPECIMENOrdering Facility: [facility] Address: [address] [place] [address] Performed By: #### 5 7021-8 ####[facility] [id number] [place] [address] [place] Basophils/100 WBC (Bld) 0.9 % Normal [facility] Comment on above: Order Comment: Speci men Type: BLOOD SPECIMENOrdering Facility: [facility] Address: [address] [place] [address] Performed By: #### 5 7021-8 ####[facility] [id number] [place] [address] [place] Differential cell count method Nom (Bld) Auto Normal [facility] Comment on above: Order Comment: Speci men Type: BLOOD SPECIMENOrdering Facility: [facility] Address: [address] [place] [address] Performed By: #### 5 7021-8 ####[facility] [id number] [place] [address] [place] Eosinophils (Bld) [#/Vol] 0.24 10*3/uL Normal <0.46 [facility] Comment on above: Order Comment: Speci men Type: BLOOD SPECIMENOrdering Facility: [facility] Address: [address] [place] [address] Performed By: #### 5 7021-8 ####[facility] [id number] [place] [address] [place] Eosinophils/100 WBC (Bld) 3.5 % Normal [facility] Comment on above: Order Comment: Speci men Type: BLOOD SPECIMENOrdering Facility: [facility] Address: [address] [place] [address] Performed By: #### 5 7021-8 ####[facility] [id number] [place] [address] [place] Erythrocyte distribution width (RBC) [Ratio] 12.8 % Normal 11.5-15.0 [facility] Comment on above: Order Comment: Speci men Type: BLOOD SPECIMENOrdering Facility: [facility] Address: [address] [place] [address] Performed By: #### 5 7021-8 ####[facility] [id number] [place] [address] [place] Hematocrit (Bld) [Volume fraction] 39.5 % Normal 39.0-51.0 [facility] Comment on above: Order Comment: Speci men Type: BLOOD SPECIMENOrdering Facility: [facility] Address: [address] [place] [address] Performed By: #### 5 7021-8 ####[facility] [id number] [place] [address] [place] Hemoglobin (Bld) [Mass/Vol] 13.1 g/dL Normal 13.0-17.0 [facility] Comment on above: Order Comment: Speci men Type: BLOOD SPECIMENOrdering Facility: [facility] Address: [address] [place] [address] Performed By: #### 5 7021-8 ####[facility] [id number] [place] [address] [place] Immature granulocytes (Bld) [#/Vol] 0.03 10*3/uL Normal <0.10 [facility] Comment on above: Order Comment: Speci men Type: BLOOD SPECIMENOrdering Facility: [facility] Address: [address] [place] [address] Performed By: #### 5 7021-8 ####[facility] [id number] [place] [address] [place] Immature granulocytes/100 WBC (Bld) 0.4 % Normal [facility] Comment on above: Order Comment: Speci men Type: BLOOD SPECIMENOrdering Facility: [facility] Address: [address] [place] [address] Performed By: #### 5 7021-8 ####[facility] [id number] [place] [address] [place] Lymphocytes (Bld) [#/Vol] 0.86 10*3/uL Low 1.00-4.00 [facility] Comment on above: Order Comment: Speci men Type: BLOOD SPECIMENOrdering Facility: [facility] Address: [address] [place] [address] Performed By: #### 5 7021-8 ####[facility] [id number] [place] [address] [place] Lymphocytes/100 WBC (Bld) 12.6 % Normal [facility] Comment on above: Order Comment: Speci men Type: BLOOD SPECIMENOrdering Facility: [facility] Address: [address] [place] [address] Performed By: #### 5 7021-8 ####[facility] [id number] [place] [address] [place] MCH (RBC) [Entitic mass] 28.3 pg Normal 26.0-34.0 [facility] Comment on above: Order Comment: Speci men Type: BLOOD SPECIMENOrdering Facility: [facility] Address: [address] [place] [address] Performed By: #### 5 7021-8 ####[facility] [id number] [place] [address] [place] MCHC (RBC) [Mass/Vol] 33.2 g/dL Normal 30.5-36.0 [facility] Comment on above: Order Comment: Speci men Type: BLOOD SPECIMENOrdering Facility: [facility] Address: [address] [place] [address] Performed By: #### 5 7021-8 ####[facility] [id number] [place] [address] [place] MCV (RBC) [Entitic vol] 85.3 fL Normal 80.0-100.0 [facility] Comment on above: Order Comment: Speci men Type: BLOOD SPECIMENOrdering Facility: [facility] Address: [address] [place], [place] [address] Performed By: #### 5 7021-8 ####[facility] [id number] [place] [address] [place] Monocytes (Bld) [#/Vol] 0.71 10*3/uL Normal <0.87 [facility] Comment on above: Order Comment: Speci men Type: BLOOD SPECIMENOrdering Facility: [facility] Address: [address] [place] [address] Performed By: #### 5 7021-8 ####[facility] KIESHAWDENITALIA [id number] [place] [address] [place] Monocytes/100 WBC (Bld) 10.4 % Normal [facility] Comment on above: Order Comment: Speci men Type: BLOOD SPECIMENOrdering Facility: [facility] Address: [address] [place] [address] Performed By: #### 5 7021-8 ####[facility] [id number] [place] [address] [place] Neutrophils (Bld) [#/Vol] 4.92 10*3/uL Normal 1.45-7.50 [facility] Comment on above: Order Comment: Speci men Type: BLOOD SPECIMENOrdering Facility: [facility] Address: [address] [place] [address] Performed By: #### 5 7021-8 ####[facility] [id number] [place] [address] [place] Neutrophils/100 WBC (Bld) 72.2 % Normal [facility] Comment on above: Order Comment: Speci men Type: BLOOD SPECIMENOrdering Facility: [facility] Address: [address] [place] [address] Performed By: #### 5 7021-8 ####[facility]CL[facility] [id number] [place] [address] [place] Nucleated RBC (Bld) [#/Vol] 10*3/uL Normal <0.01 [facility] Comment on above: Order Comment: Speci men Type: BLOOD SPECIMENOrdering Facility: [facility] Address: [address] [place] [address] Performed By: #### 5 7021-8 ####[facility]CL[facility] [id number] [place] [address] [place] Nucleated RBC/100 WBC (Bld) [Ratio] 0.0 /100 WBC Normal [facility] Comment on above: Order Comment: Speci men Type: BLOOD SPECIMENOrdering Facility: [facility] Address: [address] [place] [address] Performed By: #### 5 7021-8 ####[facility] KIESHANEW HOPELEIGHTON [id number] [place] [address] [place] Platelet mean volume (Bld) [Entitic vol] 8.4 fL Low 9.0-12.7 [facility] Comment on above: Order Comment: Speci men Type: BLOOD SPECIMENOrdering Facility: [facility] Address: [address] [place] [address] Performed By: #### 5 7021-8 ####[facility]DENITARAJEEV [id number] [place] [address] [place] Platelets (Bld) [#/Vol] 252 10*3/uL Normal 150-400 [facility] Comment on above: Order Comment: Speci men Type: BLOOD SPECIMENOrdering Facility: [facility] Address: [address] [place] [address] Performed By: #### 5 7021-8 ####[facility] KIESHANEW HOPEDENITAYOHANAA [id number] [place] [address] [place] RBC (Bld) [#/Vol] 4.63 10*6/uL Normal 4.20-6.00 [facility] Comment on above: Order Comment: Speci men Type: BLOOD SPECIMENOrdering Facility: [facility] Address: [address] [place] [address] Performed By: #### 5 7021-8 ####[facility] [id number] [place] [address] [place] WBC (Bld) [#/Vol] 6.82 10*3/uL Normal 3.70-11.00 [facility] Comment on above: Order Comment: Speci men Type: BLOOD SPECIMENOrdering Facility: [facility] Address: [address] [place] [address] Performed By: #### 5 7021-8 ####[facility] [id number] [place] [address] [place] CNOVSPon 05-27-2024 CNOVSP Normal [facility] metabolic 2000 panelon 05-27-2024 Albumin [Mass/Vol] 4.4 g/dL Normal 3.9-4.9 [facility] Comment on above: Order Comment: Speci men Type: BLOOD SPECIMENOrdering Facility: [facility] Address: [address] [place] [address] Performed By: #### 2 4323-8 ####[facility] [id number] [place] [address] [place] ALP [Catalytic activity/Vol] 126 U/L High 38-113 [facility] Comment on above: Order Comment: Speci men Type: BLOOD SPECIMENOrdering Facility: [facility] Address: [address] [place] [address] Performed By: #### 2 4323-8 ####[facility] [id number] [place] [address] [place] ALT [Catalytic activity/Vol] 45 U/L Normal 10-54 [facility] Comment on above: Order Comment: Speci men Type: BLOOD SPECIMENOrdering Facility: [facility] Address: [address] [place] [address] Performed By: #### 2 4323-8 ####[facility]CL[facility] [id number] [place] [address] [place] Anion gap [Moles/Vol] 11 mmol/L Normal 8-15 [facility] Comment on above: Order Comment: Speci men Type: BLOOD SPECIMENOrdering Facility: [facility] Address: [address] [place] [address] Performed By: #### 2 4323-8 ####[facility] [id number] [place] [address] [place] AST [Catalytic activity/Vol] 29 U/L Normal 14-40 [facility] Comment on above: Order Comment: Speci men Type: BLOOD SPECIMENOrdering Facility: [facility] Address: [address] [place] [address] Performed By: #### 2 4323-8 ####[facility]NC[facility] [id number] [place] [address] [place] Bilirubin [Mass/Vol] 0.4 mg/dL Normal 0.2-1.3 [facility] Comment on above: Order Comment: Speci men Type: BLOOD SPECIMENOrdering Facility: [facility] Address: [address] [place] [address] Performed By: #### 2 4323-8 ####[facility] [id number] [place] [address] [place] Calcium [Mass/Vol] 10.3 mg/dL High 8.5-10.2 [facility] Comment on above: Order Comment: Speci men Type: BLOOD SPECIMENOrdering Facility: [facility] Address: [address] [place] [address] Performed By: #### 2 4323-8 ####[facility] [id number] [place] [address] [place] Chloride [Moles/Vol] 103 mmol/L Normal 98-107 [facility] Comment on above: Order Comment: Speci men Type: BLOOD SPECIMENOrdering Facility: [facility] Address: [address] [place] [address] Performed By: #### 2 4323-8 ####[facility] [id number] [place] [address] [place] CO2 [Moles/Vol] 25 mmol/L Normal 22-30 [facility] Comment on above: Order Comment: Speci men Type: BLOOD SPECIMENOrdering Facility: [facility] Address: [address] [place] [address] Performed By: #### 2 4323-8 ####[facility] [id number] [place] [address] [place] Creatinine [Mass/Vol] 0.79 mg/dL Normal 0.73-1.22 [facility] Comment on above: Order Comment: Speci men Type: BLOOD SPECIMENOrdering Facility: [facility] Address: [address] [place] [address] Performed By: #### 2 4323-8 ####[facility] [id number] [place] [address] [place] Creatinine and Glomerular filtration rate.predicted panel (S/P/Bld) 99 mL/min/1.73m??? Normal >=60 [facility] Comment on above: Order Comment: Speci men Type: BLOOD SPECIMENOrdering Facility: [facility] Address: [address] [place] [address] Result Comment: Kisha mated Glomerular Filtration Rate (eGFR) is calculated using the 2020 CKD-EPI creatinine equation. This equation utilizes serum creatinine, sex, and age as parameters. The creatinine assay has traceable calibration to isotope dilution-mass spectrometry. Refer to KDIGO guidelines for clinical interpretation. In patients with unstable renal function, e.g. those with acute kidney injury, the eGFR may not accurately reflect actual GFR. Performed By: #### 2 4323-8 ####[facility] HOSPITALWNCLIA [id number] [place] [address] [place] Glucose [Mass/Vol] 115 mg/dL High 74-99 [facility] Comment on above: Order Comment: Speci men Type: BLOOD SPECIMENOrdering Facility: [facility] Address: [address] [place] [address] Result Comment: The [place] Diabetes Association (ADA) provides guidance for cutoff values for fasting glucose and random glucose. The ADA defines fasting as no caloric intake for at least 8 hours. Fasting plasma glucose results between 100 to 125 mg/dL indicate increased risk for diabetes (prediabetes).Fasting plasma glucose results greater than or equal to 126 mg/dL meet the criteria for diagnosis of diabetes. In the absence of unequivocal hyperglycemia, results should be confirmed by repeat testing. In a patient with classic symptoms of hyperglycemia or hyperglycemic crisis, random plasma glucose results greater than or equal to 200 mg/dL meet the criteria for diagnosis of diabetes.Reference: Standards of Medical Care in Diabetes 2016, [place] Diabetes Association. Diabetes Care. 2016.39(Suppl 1). Performed By: #### 2 4323-8 ####[facility] HOSPITALWDENITAMaricruz [id number] [place] [address] [place] Potassium [Moles/Vol] 4.4 mmol/L Normal 3.7-5.1 [facility] Comment on above: Order Comment: Fatoui men Type: BLOOD SPECIMENOrdering Facility: [facility] Address: [address] [place] [address] Performed By: #### 2 4323-8 ####[facility] [id number] [place] [address] [place] Protein [Mass/Vol] 7.2 g/dL Normal 6.3-8.0 [facility] Comment on above: Order Comment: Speci men Type: BLOOD SPECIMENOrdering Facility: [facility] Address: [address] [place] [address] Performed By: #### 2 4323-8 ####[facility]DENITAL[facility] [id number] [place] [address] [place] Sodium [Moles/Vol] 139 mmol/L Normal 136-144 [facility] Comment on above: Order Comment: Speci men Type: BLOOD SPECIMENOrdering Facility: [facility] Address: [address] [place] [address] Performed By: #### 2 4323-8 ####[facility] [id number] [place] [address] [place] Urea nitrogen [Mass/Vol] 15 mg/dL Normal 9-24 [facility] Comment on above: Order Comment: Speci men Type: BLOOD SPECIMENOrdering Facility: [facility] Address: [address] [place] [address] Performed By: #### 2 4323-8 ####[facility]LLASNCA [id number] [place] [address] [place] Cortis SerPl-mCncon 05-27-20 24 Cortisol [Mass/Vol] 10.5 ug/dL Normal 4.8-19.5 [facility] Comment on above: Order Comment: Speci men Type: BLOOD SPECIMENOrdering Facility: [facility] Address: [address] [place] [address] Result Comment: Prov ided reference range is from 6-10 AM sample collection time.Cortisol Reference Range: 6-10 AM = 4.8-19.5 ug/dL, 4-8 PM = 2.5-11.9 ug/dL Performed By: #### 3 016-3, 2143-02 ####[facility] LABCLIA [id number] [facility] [id number] [address] [place] TSH SerPl-aCncon 05-27-2024 TSH Qn 0.016 m[IU]/L Low 0.270-4.200 [facility] Comment on above: Order Comment: Speci men Type: BLOOD SPECIMENOrdering Facility: [facility] Address: [address] [place] [address] Performed By: #### 3 016-3, 2143-02 ####[facility] LABCLIA [id number] [facility] VALLEYRojelio [facility] [id number] [address] [place] CNOVon 05-19-2024 CNOV Normal [facility] UA DIP, URINE (POC)on 2023 BILIRUBIN UA (POCT) Negative Negative [facility] CLARITY UA (POCT) Clear [facility] COLOR UA (POCT) Yellow [facility] GLUCOSE UA (POCT) Negative Negative mg/dL [facility] Hemoglobin Ql (U) Negative Negative [facility] KETONE UA (POCT) Negative Negative mg/dL [facility] LEUKOCYTES UA (POCT) Negative Negative [facility] NITRITE UA (POCT) Negative Negative [facility] PH UA (POCT) 7.0 4.5 - 8.0 [facility] Protein Ql (U) Negative Negative mg/dL [facility] SPECIFIC GRAVITY UA (POCT) 1.015 1.005 - 1.030 [facility] UROBILINOGEN UA (POCT) 0.2 Normal E.U./dL [facility] Location:[address] POINT OF CARE [facility] CBC W Auto Differential pane l (Bld)on 05-17-2024 Basophils (Bld) [#/Vol] 0.06 10*3/uL Normal <0.11 [facility] Comment on above: Order Comment: Speci men Type: BLOOD SPECIMENOrdering Facility: [facility] Address: [address] [place] [address] Performed By: #### 5 7021-8 ####[facility] [id number] [place] [address] [place] Basophils/100 WBC (Bld) 1.1 % Normal [facility] Comment on above: Order Comment: Speci men Type: BLOOD SPECIMENOrdering Facility: [facility] Address: [address] [place] [address] Performed By: #### 5 7021-8 ####[facility] [id number] [place] [address] [place] Differential cell count method Nom (Bld) Auto Normal [facility] Comment on above: Order Comment: Speci men Type: BLOOD SPECIMENOrdering Facility: [facility] Address: [address] [place] [address] Performed By: #### 5 7021-8 ####[facility] [id number] [place] [address] [place] Eosinophils (Bld) [#/Vol] 0.16 10*3/uL Normal <0.46 [facility] Comment on above: Order Comment: Speci men Type: BLOOD SPECIMENOrdering Facility: [facility] Address: [address] [place] [address] Performed By: #### 5 7021-8 ####[facility] [id number] [place] [address] [place] Eosinophils/100 WBC (Bld) 2.8 % Normal [facility] Comment on above: Order Comment: Speci men Type: BLOOD SPECIMENOrdering Facility: [facility] [place] Address: [address] [place] [address] Performed By: #### 5 7021-8 ####[facility] [id number] [place] [address] [place] Erythrocyte distribution width (RBC) [Ratio] 12.8 % Normal 11.5-15.0 [facility] Comment on above: Order Comment: Speci men Type: BLOOD SPECIMENOrdering Facility: [facility] Address: [address] [place] [address] Performed By: #### 5 7021-8 ####[facility] [id number] [place] [address] [place] Hematocrit (Bld) [Volume fraction] 38.8 % Low 39.0-51.0 [facility] Comment on above: Order Comment: Speci men Type: BLOOD SPECIMENOrdering Facility: [facility] Address: [address] [place] [address] Performed By: #### 5 7021-8 ####[facility]ITALWNCL[facility] [id number] [place] [address] [place] Hemoglobin (Bld) [Mass/Vol] 13.2 g/dL Normal 13.0-17.0 [facility] Comment on above: Order Comment: Speci men Type: BLOOD SPECIMENOrdering Facility: [facility] Address: [address] [place] [address] Performed By: #### 5 7021-8 ####[facility] [id number] [place] [address] [place] Immature granulocytes (Bld) [#/Vol] 10*3/uL Normal <0.10 [facility] Comment on above: Order Comment: Speci men Type: BLOOD SPECIMENOrdering Facility: [facility] Address: [address] [place] [address] Performed By: #### 5 7021-8 ####[facility] [id number] [place] [address] [place] Immature granulocytes/100 WBC (Bld) 0.4 % Normal [facility] Comment on above: Order Comment: Speci men Type: BLOOD SPECIMENOrdering Facility: [facility] [place] Address: [address] [place] [address] Performed By: #### 5 7021-8 ####[facility] HOS[facility]ITALWNCLIA [id number] [place] [address] [place] Lymphocytes (Bld) [#/Vol] 0.90 10*3/uL Low 1.00-4.00 [facility] Comment on above: Order Comment: Speci men Type: BLOOD SPECIMENOrdering Facility: [facility] [place] Address: [address] [place] [address] Performed By: #### 5 7021-8 ####[facility] [id number] [place] [address] [place] Lymphocytes/100 WBC (Bld) 15.8 % Normal [facility] Comment on above: Order Comment: Speci men Type: BLOOD SPECIMENOrdering Facility: [facility] [place] Address: [address] [place] [address] Performed By: #### 5 7021-8 ####[facility] [id number] [place] [address] [place] MCH (RBC) [Entitic mass] 28.9 pg Normal 26.0-34.0 [facility] Comment on above: Order Comment: Speci men Type: BLOOD SPECIMENOrdering Facility: [facility] [place] Address: [address] [place] [address] Performed By: #### 5 7021-8 ####[facility] [id number] [place] [address] [place] MCHC (RBC) [Mass/Vol] 34.0 g/dL Normal 30.5-36.0 [facility] Comment on above: Order Comment: Speci men Type: BLOOD SPECIMENOrdering Facility: [facility] [place] Address: [address] [place] [address] Performed By: #### 5 7021-8 ####[facility] [id number] [place] [address] [place] MCV (RBC) [Entitic vol] 85.1 fL Normal 80.0-100.0 [facility] Comment on above: Order Comment: Speci men Type: BLOOD SPECIMENOrdering Facility: [facility] [place] Address: [address] [place] [address] Performed By: #### 5 7021-8 ####[facility]CL[facility] [id number] [place] [address] [place] Monocytes (Bld) [#/Vol] 0.53 10*3/uL Normal <0.87 [facility] Comment on above: Order Comment: Speci men Type: BLOOD SPECIMENOrdering Facility: [facility] [place] Address: [address] [place] [address] Performed By: #### 5 7021-8 ####[facility] [id number] [place] [address] [place] Monocytes/100 WBC (Bld) 9.3 % Normal [facility] Comment on above: Order Comment: Speci men Type: BLOOD SPECIMENOrdering Facility: [facility] [place] Address: [address] [place] [address] Performed By: #### 5 7021-8 ####[facility] [id number] [place] [address] [place] Neutrophils (Bld) [#/Vol] 4.04 10*3/uL Normal 1.45-7.50 [facility] Comment on above: Order Comment: Speci men Type: BLOOD SPECIMENOrdering Facility: [facility] [place] Address: [address] [place] [address] Performed By: #### 5 7021-8 ####[facility] [id number] [place] [address] [place] Neutrophils/100 WBC (Bld) 70.6 % Normal [facility] Comment on above: Order Comment: Speci men Type: BLOOD SPECIMENOrdering Facility: [facility] [place] Address: [address] [place] [address] Performed By: #### 5 7021-8 ####[facility] [id number] [place] [address] [place] Nucleated RBC (Bld) [#/Vol] 10*3/uL Normal <0.01 [facility] Comment on above: Order Comment: Speci men Type: BLOOD SPECIMENOrdering Facility: [facility] [place] Address: [address] [place] [address] Performed By: #### 5 7021-8 ####[facility] KIESHAWNCLIA [id number] [place] [address] [place] Nucleated RBC/100 WBC (Bld) [Ratio] 0.0 /100 WBC Normal [facility] Comment on above: Order Comment: Speci men Type: BLOOD SPECIMENOrdering Facility: [facility] [place] Address: [address] [place] [address] Performed By: #### 5 7021-8 ####[facility]NCL[facility] [id number] [place] [address] [place] Platelet mean volume (Bld) [Entitic vol] 8.7 fL Low 9.0-12.7 [facility] Comment on above: Order Comment: Speci men Type: BLOOD SPECIMENOrdering Facility: [facility] [place] Address: [address] [place] [address] Performed By: #### 5 7021-8 ####[facility]CL[facility] [id number] [place] [address] [place] Platelets (Bld) [#/Vol] 219 10*3/uL Normal 150-400 [facility] Comment on above: Order Comment: Speci men Type: BLOOD SPECIMENOrdering Facility: [facility] [place] Address: [address] [place] [address] Performed By: #### 5 7021-8 ####[facility]CL[facility] [id number] [place] [address] [place] RBC (Bld) [#/Vol] 4.56 10*6/uL Normal 4.20-6.00 [facility] Comment on above: Order Comment: Speci men Type: BLOOD SPECIMENOrdering Facility: [facility] [place] Address: [address] [place] [address] Performed By: #### 5 7021-8 ####[facility]CL[facility] [id number] [place] [address] [place] WBC (Bld) [#/Vol] 5.71 10*3/uL Normal 3.70-11.00 [facility] Comment on above: Order Comment: Speci men Type: BLOOD SPECIMENOrdering Facility: [facility] [place] Address: [address] [place] [address] Performed By: #### 5 7021-8 ####[facility] [id number] [place] [address] [place] [facility] [place] Comprehensive metabolic 2000 panelon 05-17-2024 Albumin [Mass/Vol] 4.5 g/dL Normal 3.9-4.9 [facility] Comment on above: Order Comment: Speci men Type: BLOOD SPECIMENOrdering Facility: [facility] [place] Address: [address] [place] [address] Performed By: #### 2 4323-8 ####[facility] [id number] [place] [address] [place] ALP [Catalytic activity/Vol] 122 U/L High 38-113 [facility] Comment on above: Order Comment: Speci men Type: BLOOD SPECIMENOrdering Facility: [facility] [place] Address: [address] [place] [address] Performed By: #### 2 4323-8 ####[facility] [id number] [place] [address] [place] ALT [Catalytic activity/Vol] 47 U/L Normal 10-54 [facility] Comment on above: Order Comment: Speci men Type: BLOOD SPECIMENOrdering Facility: [facility] [place] Address: [address] [place] [address] Performed By: #### 2 4323-8 ####[facility] [id number] [place] [address] [place] Anion gap [Moles/Vol] 11 mmol/L Normal 8-15 [facility] Comment on above: Order Comment: Speci men Type: BLOOD SPECIMENOrdering Facility: [facility] [place] Address: [address] [place] [address] Performed By: #### 2 4323-8 ####[facility] [id number] [place] [address] [place] AST [Catalytic activity/Vol] 36 U/L Normal 14-40 [facility] Comment on above: Order Comment: Speci men Type: BLOOD SPECIMENOrdering Facility: [facility] [place] Address: [address] [place] [address] Performed By: #### 2 4323-8 ####[facility] [id number] [place] [address] [place] Bilirubin [Mass/Vol] 0.4 mg/dL Normal 0.2-1.3 [facility] Comment on above: Order Comment: Speci men Type: BLOOD SPECIMENOrdering Facility: [facility] [place] Address: [address] [place] [address] Performed By: #### 2 4323-8 ####[facility] [id number] [place] [address] [place] Calcium [Mass/Vol] 10.1 mg/dL Normal 8.5-10.2 [facility] Comment on above: Order Comment: Speci men Type: BLOOD SPECIMENOrdering Facility: [facility] [place] Address: [address] [place] [address] Performed By: #### 2 4323-8 ####[facility] [id number] [place] [address] [place] Chloride [Moles/Vol] 105 mmol/L Normal 98-107 [facility] Comment on above: Order Comment: Speci men Type: BLOOD SPECIMENOrdering Facility: [facility] [place] Address: [address] [place], [place] [address] Performed By: #### 2 4323-8 ####[facility] GIORGINCRAJEEV [id number] [place] [address] [place] CO2 [Moles/Vol] 23 mmol/L Normal 22-30 [facility] Comment on above: Order Comment: Speci men Type: BLOOD SPECIMENOrdering Facility: [facility] [place] Address: [address] [place] [address] Performed By: #### 2 4323-8 ####[facility] [id number] [place] [address] [place] Creatinine [Mass/Vol] 0.78 mg/dL Normal 0.73-1.22 [facility] Comment on above: Order Comment: Speci men Type: BLOOD SPECIMENOrdering Facility: [facility] [place] Address: [address] [place] [address] Performed By: #### 2 4323-8 ####[facility]LLASNCA [id number] [place] [address] [place] Creatinine and Glomerular filtration rate.predicted panel (S/P/Bld) 100 mL/min/1.73m??? Normal >=60 [facility] Comment on above: Order Comment: Speci men Type: BLOOD SPECIMENOrdering Facility: [facility] [place] Address: [address] [place] [address] Result Comment: Kisha mated Glomerular Filtration Rate (eGFR) is calculated using the 2020 CKD-EPI creatinine equation. This equation utilizes serum creatinine, sex, and age as parameters. The creatinine assay has traceable calibration to isotope dilution-mass spectrometry. Refer to KDIGO guidelines for clinical interpretation. In patients with unstable renal function, e.g. those with acute kidney injury, the eGFR may not accurately reflect actual GFR. Performed By: #### 2 4323-8 ####[facility] HOSPITALWNCLIA [id number] [place] [address] [place] Glucose [Mass/Vol] 118 mg/dL High 74-99 [facility] Comment on above: Order Comment: Speci men Type: BLOOD SPECIMENOrdering Facility: [facility] [place] Address: [address] [place] [address] Result Comment: The [place] Diabetes Association (ADA) provides guidance for cutoff values for fasting glucose and random glucose. The ADA defines fasting as no caloric intake for at least 8 hours. Fasting plasma glucose results between 100 to 125 mg/dL indicate increased risk for diabetes (prediabetes).Fasting plasma glucose results greater than or equal to 126 mg/dL meet the criteria for diagnosis of diabetes. In the absence of unequivocal hyperglycemia, results should be confirmed by repeat testing. In a patient with classic symptoms of hyperglycemia or hyperglycemic crisis, random plasma glucose results greater than or equal to 200 mg/dL meet the criteria for diagnosis of diabetes.Reference: Standards of Medical Care in Diabetes 2016, [place] Diabetes Association. Diabetes Care. 2016.39(Suppl 1). Performed By: #### 2 4323-8 ####[facility] HOSPITALWNCLIA [id number] [place] [address] [place] Potassium [Moles/Vol] 4.2 mmol/L Normal 3.7-5.1 [facility] Comment on above: Order Comment: Fatoui men Type: BLOOD SPECIMENOrdering Facility: [facility] [place] Address: [address] [place] [address] Performed By: #### 2 4323-8 ####[facility]OS[facility]ITALWNCLIA [id number] [place] [address] [place] Protein [Mass/Vol] 6.8 g/dL Normal 6.3-8.0 [facility] Comment on above: Order Comment: Speci men Type: BLOOD SPECIMENOrdering Facility: [facility] [place] Address: [address] [place] [address] Performed By: #### 2 4323-8 ####[facility]OS[facility]ITALWNCLIA [id number] [place] [address] [place] Sodium [Moles/Vol] 139 mmol/L Normal 136-144 [facility] Comment on above: Order Comment: Speci men Type: BLOOD SPECIMENOrdering Facility: [facility] [place] Address: [address] [place] [address] Performed By: #### 2 4323-8 ####[facility] [id number] [place] [address] [place] Urea nitrogen [Mass/Vol] 15 mg/dL Normal 9-24 [facility] Comment on above: Order Comment: Speci men Type: BLOOD SPECIMENOrdering Facility: [facility] [place] Address: [address] [place] [address] Performed By: #### 2 4323-8 ####[facility] [id number] [place] [address] [place] Cortis SerPl-mCncon 05-17-20 24 Cortisol [Mass/Vol] 2.9 ug/dL Low 4.8-19.5 [facility] Comment on above: Order Comment: Speci men Type: BLOOD SPECIMENOrdering Facility: [facility] [place] Address: [address] [place] [address] Result Comment: Prov ided reference range is from 6-10 AM sample collection time.Cortisol Reference Range: 6-10 AM = 4.8-19.5 ug/dL, 4-8 PM = 2.5-11.9 ug/dL Performed By: #### 2 143-6, 3016-3 ####[facility] LABCLIA [id number] [facility] [id number] [address] [place] TSH SerPl-aCncon 05-17-2024 TSH Qn 0.027 m[IU]/L Low 0.270-4.200 [facility] Comment on above: Order Comment: Speci men Type: BLOOD SPECIMENOrdering Facility: [facility] [place] Address: [address] [place] [address] Performed By: #### 2 143-6, 3016-3 ####[facility] LABCLIA [id number] [address] [id number] [address] [place] CNPNon 05-13-2024 CNPN Normal [facility] CBC W Auto Differential pane l (Bld)on 04-30-2024 Basophils (Bld) [#/Vol] 0.07 10*3/uL Normal <0.11 [facility] Comment on above: Order Comment: Speci men Type: BLOOD SPECIMENOrdering Facility: [facility] [place] Address: [address] [place] [address] Performed By: #### 5 7021-8 ####[facility] MILLWNCLIA [id number] [place] [address] [place] Basophils/100 WBC (Bld) 1.4 % Normal [facility] Comment on above: Order Comment: Speci men Type: BLOOD SPECIMENOrdering Facility: [facility] [place] Address: [address] [place] [address] Performed By: #### 5 7021-8 ####[facility] [id number] [place] [address] [place] Differential cell count method Nom (Bld) Auto Normal [facility] Comment on above: Order Comment: Speci men Type: BLOOD SPECIMENOrdering Facility: [facility] [place] Address: [address] [place] [address] Performed By: #### 5 7021-8 ####[facility] MILLWNCLIA [id number] [place] [address] [place] Eosinophils (Bld) [#/Vol] 0.36 10*3/uL Normal <0.46 [facility] Comment on above: Order Comment: Speci men Type: BLOOD SPECIMENOrdering Facility: [facility] [place] Address: [address] [place] [address] Performed By: #### 5 7021-8 ####[facility] MILLWNCLIA [id number] [place] [address] [place] Eosinophils/100 WBC (Bld) 7.0 % Normal [facility] Comment on above: Order Comment: Speci men Type: BLOOD SPECIMENOrdering Facility: [facility] [place] Address: [address] [place] [address] Performed By: #### 5 7021-8 ####[facility] [id number] [place] [address] [place] Erythrocyte distribution width (RBC) [Ratio] 12.6 % Normal 11.5-15.0 [facility] Comment on above: Order Comment: Speci men Type: BLOOD SPECIMENOrdering Facility: [facility] [place] Address: [address] [place] [address] Performed By: #### 5 7021-8 ####[facility] [id number] [place] [address] [place] Hematocrit (Bld) [Volume fraction] 41.3 % Normal 39.0-51.0 [facility] Comment on above: Order Comment: Speci men Type: BLOOD SPECIMENOrdering Facility: [facility] [place] Address: [address] [place] [address] Performed By: #### 5 7021-8 ####[facility] [id number] [place] [address] [place] Hemoglobin (Bld) [Mass/Vol] 13.5 g/dL Normal 13.0-17.0 [facility] Comment on above: Order Comment: Speci men Type: BLOOD SPECIMENOrdering Facility: [facility] [place] Address: [address] [place] [address] Performed By: #### 5 7021-8 ####[facility]ASNCL[facility] [id number] [place] [address] [place] Immature granulocytes (Bld) [#/Vol] 10*3/uL Normal <0.10 [facility] Comment on above: Order Comment: Speci men Type: BLOOD SPECIMENOrdering Facility: [facility] [place] Address: [address] [place] [address] Performed By: #### 5 7021-8 ####[facility] KIESHAHENRY [id number] [place] [address] [place] Immature granulocytes/100 WBC (Bld) 0.4 % Normal [facility] Comment on above: Order Comment: Speci men Type: BLOOD SPECIMENOrdering Facility: [facility] [place] Address: [address] [place] [address] Performed By: #### 5 7021-8 ####[facility] [id number] [place] [address] [place] Lymphocytes (Bld) [#/Vol] 0.99 10*3/uL Low 1.00-4.00 [facility] Comment on above: Order Comment: Speci men Type: BLOOD SPECIMENOrdering Facility: [facility] Address: [address] [place] [address] Performed By: #### 5 7021-8 ####[facility] [id number] [place] [address] [place] Lymphocytes/100 WBC (Bld) 19.3 % Normal [facility] Comment on above: Order Comment: Speci men Type: BLOOD SPECIMENOrdering Facility: [facility] Address: [address] [place] [address] Performed By: #### 5 7021-8 ####[facility] [id number] [place] [address] [place] MCH (RBC) [Entitic mass] 29.2 pg Normal 26.0-34.0 [facility] Comment on above: Order Comment: Speci men Type: BLOOD SPECIMENOrdering Facility: [facility] Address: [address] [place] [address] Performed By: #### 5 7021-8 ####[facility]NCL[facility] [id number] [place] [address] [place] MCHC (RBC) [Mass/Vol] 32.7 g/dL Normal 30.5-36.0 [facility] Comment on above: Order Comment: Speci men Type: BLOOD SPECIMENOrdering Facility: [facility] Address: [address] [place] [address] Performed By: #### 5 7021-8 ####[facility] [id number] [place] [address] [place] MCV (RBC) [Entitic vol] 89.4 fL Normal 80.0-100.0 [facility] Comment on above: Order Comment: Speci men Type: BLOOD SPECIMENOrdering Facility: [facility] Address: [address] [place] [address] Performed By: #### 5 7021-8 ####[facility] [id number] [place] [address] [place] Monocytes (Bld) [#/Vol] 0.56 10*3/uL Normal <0.87 [facility] Comment on above: Order Comment: Speci men Type: BLOOD SPECIMENOrdering Facility: [facility] Address: [address] [place] [address] Performed By: #### 5 7021-8 ####[facility] [id number] [place] [address] [place] Monocytes/100 WBC (Bld) 10.9 % Normal [facility] Comment on above: Order Comment: Speci men Type: BLOOD SPECIMENOrdering Facility: [facility] Address: [address] [place] [address] Performed By: #### 5 7021-8 ####[facility] [id number] [place] [address] [place] Neutrophils (Bld) [#/Vol] 3.14 10*3/uL Normal 1.45-7.50 [facility] Comment on above: Order Comment: Speci men Type: BLOOD SPECIMENOrdering Facility: [facility] Address: [address] [place] [address] Performed By: #### 5 7021-8 ####[facility] [id number] [place] [address] [place] Neutrophils/100 WBC (Bld) 61.0 % Normal [facility] Comment on above: Order Comment: Speci men Type: BLOOD SPECIMENOrdering Facility: [facility] Address: [address] [place] [address] Performed By: #### 5 7021-8 ####[facility] [id number] [place] [address] [place] Nucleated RBC (Bld) [#/Vol] 10*3/uL Normal <0.01 [facility] Comment on above: Order Comment: Speci men Type: BLOOD SPECIMENOrdering Facility: [facility] Address: [address] [place] [address] Performed By: #### 5 7021-8 ####[facility] [id number] [place] [address] [place] Nucleated RBC/100 WBC (Bld) [Ratio] 0.0 /100 WBC Normal [facility] Comment on above: Order Comment: Speci men Type: BLOOD SPECIMENOrdering Facility: [facility] Address: [address] [place] [address] Performed By: #### 5 7021-8 ####[facility]NCL[facility] [id number] [place] [address] [place] Platelet mean volume (Bld) [Entitic vol] 8.5 fL Low 9.0-12.7 [facility] Comment on above: Order Comment: Speci men Type: BLOOD SPECIMENOrdering Facility: [facility] Address: [address] [place] [address] Performed By: #### 5 7021-8 ####[facility] GIORGINCLIA [id number] [place] [address] [place] Platelets (Bld) [#/Vol] 190 10*3/uL Normal 150-400 [facility] Comment on above: Order Comment: Speci men Type: BLOOD SPECIMENOrdering Facility: [facility] Address: [address] [place] [address] Performed By: #### 5 7021-8 ####[facility] KIESHANEW HOPENCLIA [id number] [place] [address] [place] RBC (Bld) [#/Vol] 4.62 10*6/uL Normal 4.20-6.00 [facility] Comment on above: Order Comment: Speci men Type: BLOOD SPECIMENOrdering Facility: [facility] Address: [address] [place] [address] Performed By: #### 5 7021-8 ####[facility] KIESHANEW HOPENCYOHANAA [id number] [place] [address] [place] WBC (Bld) [#/Vol] 5.14 10*3/uL Normal 3.70-11.00 [facility] Comment on above: Order Comment: Speci men Type: BLOOD SPECIMENOrdering Facility: [facility] Address: [address] [place] [address] Performed By: #### 5 7021-8 ####[facility]LLASNCLIA [id number] [place] [address] [place] CNOVSPon 04-30-2024 CNOVSP Normal [facility] metabolic 2000 panelon 04-30-2024 Albumin [Mass/Vol] 4.8 g/dL Normal 3.9-4.9 [facility] Comment on above: Order Comment: Speci men Type: BLOOD SPECIMENOrdering Facility: [facility] Address: [address] [place] [address] Performed By: #### 2 4323-8 ####[facility] SALAVTORE MILLTOWNCLIA [id number] [place] [address] [place] ALP [Catalytic activity/Vol] 105 U/L Normal 38-113 [facility] Comment on above: Order Comment: Speci men Type: BLOOD SPECIMENOrdering Facility: [facility] Address: [address] [place] [address] Performed By: #### 2 4323-8 ####[facility] SALVATORE MILLTOWNCLIA [id number] [place] [address] [place] ALT [Catalytic activity/Vol] 68 U/L High 10-54 [facility] Comment on above: Order Comment: Speci men Type: BLOOD SPECIMENOrdering Facility: [facility] Address: [address] [place] [address] Performed By: #### 2 4323-8 ####[facility] MILLWNCLIA [id number] [place] [address] [place] Anion gap [Moles/Vol] 11 mmol/L Normal 8-15 [facility] Comment on above: Order Comment: Speci men Type: BLOOD SPECIMENOrdering Facility: [facility] Address: [address] [place] [address] Performed By: #### 2 4323-8 ####[facility] SALVATORE MILLTOWNCLIA [id number] [place] [address] [place] AST [Catalytic activity/Vol] 40 U/L Normal 14-40 [facility] Comment on above: Order Comment: Speci men Type: BLOOD SPECIMENOrdering Facility: [facility] Address: [address] [place] [address] Performed By: #### 2 4323-8 ####[facility] SALVATOREGRIFFIN MEMORIAL [facility] – NORMANLIA [id number] [place] [address] [place] Bilirubin [Mass/Vol] 0.3 mg/dL Normal 0.2-1.3 [facility] Comment on above: Order Comment: Speci men Type: BLOOD SPECIMENOrdering Facility: [facility] Address: [address] [place] [address] Performed By: #### 2 4323-8 ####[facility] MILLWNCLIA [id number] [place] [address] [place] Calcium [Mass/Vol] 10.0 mg/dL Normal 8.5-10.2 [facility] Comment on above: Order Comment: Speci men Type: BLOOD SPECIMENOrdering Facility: [facility] Address: [address] [place] [address] Performed By: #### 2 4323-8 ####[facility] HOSPITALWNCLIA [id number] [place] [address] [place] Chloride [Moles/Vol] 103 mmol/L Normal 98-107 [facility] Comment on above: Order Comment: Speci men Type: BLOOD SPECIMENOrdering Facility: [facility] Address: [address] [place] [address] Performed By: #### 2 4323-8 ####[facility] SALVATOREBRIGHTLOOK HOSPITALWNCLIA [id number] [place] [address] [place] CO2 [Moles/Vol] 25 mmol/L Normal 22-30 [facility] Comment on above: Order Comment: Speci men Type: BLOOD SPECIMENOrdering Facility: [facility] Address: [address] [place] [address] Performed By: #### 2 4323-8 ####[facility] SALVATORE MILLTOWNCLIA [id number] [place] [address] [place] Creatinine [Mass/Vol] 0.90 mg/dL Normal 0.73-1.22 [facility] Comment on above: Order Comment: Augustine zee Type: BLOOD SPECIMENOrdering Facility: [facility] Address: [address] [place] [address] Performed By: #### 2 4323-8 ####[facility] [id number] [place] [address] [place] Creatinine and Glomerular filtration rate.predicted panel (S/P/Bld) 96 mL/min/1.73m??? Normal >=60 [facility] Comment on above: Order Comment: Augustine zee Type: BLOOD SPECIMENOrdering Facility: [facility] Address: [address] [place] [address] Result Comment: Kisha mated Glomerular Filtration Rate (eGFR) is calculated using the 2020 CKD-EPI creatinine equation. This equation utilizes serum creatinine, sex, and age as parameters. The creatinine assay has traceable calibration to isotope dilution-mass spectrometry. Refer to KDIGO guidelines for clinical interpretation. In patients with unstable renal function, e.g. those with acute kidney injury, the eGFR may not accurately reflect actual GFR. Performed By: #### 2 4323-8 ####[facility] [id number] [place] [address] [place] Glucose [Mass/Vol] 143 mg/dL High 74-99 [facility] Comment on above: Order Comment: Augustine zee Type: BLOOD SPECIMENOrdering Facility: [facility] Address: [address] [place] [address] Result Comment: The [place] Diabetes Association (ADA) provides guidance for cutoff values for fasting glucose and random glucose. The ADA defines fasting as no caloric intake for at least 8 hours. Fasting plasma glucose results between 100 to 125 mg/dL indicate increased risk for diabetes (prediabetes).Fasting plasma glucose results greater than or equal to 126 mg/dL meet the criteria for diagnosis of diabetes. In the absence of unequivocal hyperglycemia, results should be confirmed by repeat testing. In a patient with classic symptoms of hyperglycemia or hyperglycemic crisis, random plasma glucose results greater than or equal to 200 mg/dL meet the criteria for diagnosis of diabetes.Reference: Standards of Medical Care in Diabetes 2016, [place] Diabetes Association. Diabetes Care. 2016.39(Suppl 1). Performed By: #### 2 4323-8 ####[facility] MILLBENWDENITALIA [id number] [place] [address] [place] Potassium [Moles/Vol] 4.3 mmol/L Normal 3.7-5.1 [facility] Comment on above: Order Comment: Speci men Type: BLOOD SPECIMENOrdering Facility: [facility] Address: [address] [place] [address] Performed By: #### 2 4323-8 ####[facility] KIESHAJUSTUSLIA [id number] [place] [address] [place] Protein [Mass/Vol] 7.3 g/dL Normal 6.3-8.0 [facility] Comment on above: Order Comment: Speci men Type: BLOOD SPECIMENOrdering Facility: [facility] Address: [address] [place] [address] Performed By: #### 2 4323-8 ####[facility] HOSPITALBUCKYNCLIA [id number] [place] [address] [place] Sodium [Moles/Vol] 139 mmol/L Normal 136-144 [facility] Comment on above: Order Comment: Speci men Type: BLOOD SPECIMENOrdering Facility: [facility] Address: [address] [place] [address] Performed By: #### 2 4323-8 ####[facility] MILLBENWNCLIA [id number] [place] [address] [place] Urea nitrogen [Mass/Vol] 19 mg/dL Normal 9-24 [facility] Comment on above: Order Comment: Speci men Type: BLOOD SPECIMENOrdering Facility: [facility] Address: [address] [place] [address] Performed By: #### 2 4323-8 ####[facility] CENTERDENITALIA [id number] [place] [address] [place] Cortis SerPl-mCncon 04-30-20 24 Cortisol [Mass/Vol] 9.3 ug/dL Normal 4.8-19.5 [facility] Comment on above: Order Comment: Speci men Type: BLOOD SPECIMENOrdering Facility: [facility] Address: [address] [place] [address] Result Comment: Prov ided reference range is from 6-10 AM sample collection time.Cortisol Reference Range: 6-10 AM = 4.8-19.5 ug/dL, 4-8 PM = 2.5-11.9 ug/dL Performed By: #### 3 016-3, 2143-02 ####[facility] LABCLIA [id number] [place] [address] [place] TSH SerPl-aCncon 04-30-2024 TSH Qn 1.730 m[IU]/L Normal 0.270-4.200 [facility] Comment on above: Order Comment: Speci men Type: BLOOD SPECIMENOrdering Facility: [facility] Address: [address] [place] [address] Performed By: #### 3 016-3, 2143-02 ####[facility] LABCLIA [id number] [place] [address] [place] CBC W Auto Differential pane l (Bld)on 04-19-2024 Basophils (Bld) [#/Vol] 0.07 10*3/uL Normal <0.11 [facility] Comment on above: Order Comment: Speci men Type: BLOOD SPECIMENOrdering Facility: [facility] Address: [address] [place] [address] Performed By: #### 5 7021-8 ####[facility] SALVATORE [facility] [id number] [place] [address] [place] Basophils/100 WBC (Bld) 1.3 % Normal [facility] Comment on above: Order Comment: Speci men Type: BLOOD SPECIMENOrdering Facility: [facility] Address: [address] [place] [address] Performed By: #### 5 7021-8 ####[facility] GIORGIJUANA [id number] [place] [address] [place] Differential cell count method Nom (Bld) Auto Normal [facility] Comment on above: Order Comment: Speci men Type: BLOOD SPECIMENOrdering Facility: [facility] Address: [address] [place] [address] Performed By: #### 5 7021-8 ####[facility] KIESHAGERALDOA [id number] [place] [address] [place] Eosinophils (Bld) [#/Vol] 0.30 10*3/uL Normal <0.46 [facility] Comment on above: Order Comment: Speci men Type: BLOOD SPECIMENOrdering Facility: [facility] Address: [address] [place] [address] Performed By: #### 5 7021-8 ####[facility] KIESHAGERALDOA [id number] [place] [address] [place] Eosinophils/100 WBC (Bld) 5.6 % Normal [facility] Comment on above: Order Comment: Speci men Type: BLOOD SPECIMENOrdering Facility: [facility] Address: [address] [place] [address] Performed By: #### 5 7021-8 ####[facility] GIORGIDENITALIA [id number] [place] [address] [place] Erythrocyte distribution width (RBC) [Ratio] 12.2 % Normal 11.5-15.0 [facility] Comment on above: Order Comment: Speci men Type: BLOOD SPECIMENOrdering Facility: [facility] Address: [address] [place] [address] Performed By: #### 5 7021-8 ####[facility]ALTHCARELIA [id number] [place] [address] [place] Hematocrit (Bld) [Volume fraction] 41.7 % Normal 39.0-51.0 [facility] Comment on above: Order Comment: Speci men Type: BLOOD SPECIMENOrdering Facility: [facility] Address: [address] [place] [address] Performed By: #### 5 7021-8 ####[facility] [id number] [place] [address] [place] Hemoglobin (Bld) [Mass/Vol] 14.1 g/dL Normal 13.0-17.0 [facility] Comment on above: Order Comment: Speci men Type: BLOOD SPECIMENOrdering Facility: [facility] Address: [address] [place] [address] Performed By: #### 5 7021-8 ####[facility] [id number] [place] [address] [place] Immature granulocytes (Bld) [#/Vol] 10*3/uL Normal <0.10 [facility] Comment on above: Order Comment: Speci men Type: BLOOD SPECIMENOrdering Facility: [facility] Address: [address] [place] [address] Performed By: #### 5 7021-8 ####[facility] [id number] [place] [address] [place] Immature granulocytes/100 WBC (Bld) 0.4 % Normal [facility] Comment on above: Order Comment: Speci men Type: BLOOD SPECIMENOrdering Facility: [facility] Address: [address] [place] [address] Performed By: #### 5 7021-8 ####[facility]LLASNCLIA [id number] [place] [address] [place] Lymphocytes (Bld) [#/Vol] 1.14 10*3/uL Normal 1.00-4.00 [facility] Comment on above: Order Comment: Speci men Type: BLOOD SPECIMENOrdering Facility: [facility] Address: [address] [place] [address] Performed By: #### 5 7021-8 ####[facility] [id number] [place] [address] [place] Lymphocytes/100 WBC (Bld) 21.3 % Normal [facility] Comment on above: Order Comment: Speci men Type: BLOOD SPECIMENOrdering Facility: [facility] Address: [address] [place] [address] Performed By: #### 5 7021-8 ####[facility] P[facility]LLASNCLI [id number] [place] [address] [place] MCH (RBC) [Entitic mass] 29.6 pg Normal 26.0-34.0 [facility] Comment on above: Order Comment: Speci men Type: BLOOD SPECIMENOrdering Facility: [facility] Address: [address] [place] [address] Performed By: #### 5 7021-8 ####[facility] P[facility]LLASNCLI [id number] [place] [address] [place] MCHC (RBC) [Mass/Vol] 33.8 g/dL Normal 30.5-36.0 [facility] Comment on above: Order Comment: Speci men Type: BLOOD SPECIMENOrdering Facility: [facility] Address: [address] [place] [address] Performed By: #### 5 7021-8 ####[facility] P[facility]LLASNCLI [id number] [place] [address] [place] MCV (RBC) [Entitic vol] 87.6 fL Normal 80.0-100.0 [facility] Comment on above: Order Comment: Speci men Type: BLOOD SPECIMENOrdering Facility: [facility] Address: [address] [place] [address] Performed By: #### 5 7021-8 ####[facility] MILLTOWNCLIA [id number] [place] [address] [place] Monocytes (Bld) [#/Vol] 0.45 10*3/uL Normal <0.87 [facility] Comment on above: Order Comment: Speci men Type: BLOOD SPECIMENOrdering Facility: [facility] Address: [address] [place] [address] Performed By: #### 5 7021-8 ####[facility] MILLWNCLIA [id number] [place] [address] [place] Monocytes/100 WBC (Bld) 8.4 % Normal [facility] Comment on above: Order Comment: Speci men Type: BLOOD SPECIMENOrdering Facility: [facility] Address: [address] [place] [address] Performed By: #### 5 7021-8 ####[facility] KIESHAWNCLIA [id number] [place] [address] [place] Neutrophils (Bld) [#/Vol] 3.36 10*3/uL Normal 1.45-7.50 [facility] Comment on above: Order Comment: Speci men Type: BLOOD SPECIMENOrdering Facility: [facility] Address: [address] [place] [address] Performed By: #### 5 7021-8 ####[facility] MILLTOWNCLIA [id number] [place] [address] [place] Neutrophils/100 WBC (Bld) 63.0 % Normal [facility] Comment on above: Order Comment: Speci men Type: BLOOD SPECIMENOrdering Facility: [facility] Address: [address] [place] [address] Performed By: #### 5 7021-8 ####[facility] [id number] [place] [address] [place] Nucleated RBC (Bld) [#/Vol] 10*3/uL Normal <0.01 [facility] Comment on above: Order Comment: Speci men Type: BLOOD SPECIMENOrdering Facility: [facility] Address: [address] [place] [address] Performed By: #### 5 7021-8 ####[facility] [id number] [place] [address] [place] Nucleated RBC/100 WBC (Bld) [Ratio] 0.0 /100 WBC Normal [facility] Comment on above: Order Comment: Speci men Type: BLOOD SPECIMENOrdering Facility: [facility] Address: [address] [place] [address] Performed By: #### 5 7021-8 ####[facility] [id number] [place] [address] [place] Platelet mean volume (Bld) [Entitic vol] 8.4 fL Low 9.0-12.7 [facility] Comment on above: Order Comment: Speci men Type: BLOOD SPECIMENOrdering Facility: [facility] Address: [address] [place] [address] Performed By: #### 5 7021-8 ####[facility] [id number] [place] [address] [place] Platelets (Bld) [#/Vol] 209 10*3/uL Normal 150-400 [facility] Comment on above: Order Comment: Speci men Type: BLOOD SPECIMENOrdering Facility: [facility] Address: [address] [place] [address] Performed By: #### 5 7021-8 ####[facility]EL[facility] [id number] [place] [address] [place] RBC (Bld) [#/Vol] 4.76 10*6/uL Normal 4.20-6.00 [facility] Comment on above: Order Comment: Speci men Type: BLOOD SPECIMENOrdering Facility: [facility] Address: [address] [place] [address] Performed By: #### 5 7021-8 ####[facility] HOSPITALWNCLIA [id number] [place] [address] [place] WBC (Bld) [#/Vol] 5.34 10*3/uL Normal 3.70-11.00 [facility] Comment on above: Order Comment: Speci men Type: BLOOD SPECIMENOrdering Facility: [facility] Address: [address] [place] [address] Performed By: #### 5 7021-8 ####[facility] P[facility]LLASNCLIA [id number] [place] [address] [place] Comprehensive metabolic 2000 panelon 04-19-2024 Albumin [Mass/Vol] 4.5 g/dL Normal 3.9-4.9 [facility] Comment on above: Order Comment: Speci men Type: BLOOD SPECIMENOrdering Facility: [facility] Address: [address] [place] [address] Performed By: #### 2 4323-8 ####[facility] P[facility]LLASNCLIA [id number] [place] [address] [place] ALP [Catalytic activity/Vol] 99 U/L Normal 38-113 [facility] Comment on above: Order Comment: Speci men Type: BLOOD SPECIMENOrdering Facility: [facility] Address: [address] [place] [address] Performed By: #### 2 4323-8 ####[facility]ASNCLIA [id number] [place] [address] [place] ALT [Catalytic activity/Vol] 43 U/L Normal 10-54 [facility] Comment on above: Order Comment: Speci men Type: BLOOD SPECIMENOrdering Facility: [facility] Address: [address] [place] [address] Performed By: #### 2 4323-8 ####[facility] MILLTOWNCLIA [id number] [place] [address] [place] Anion gap [Moles/Vol] 10 mmol/L Normal 8-15 [facility] Comment on above: Order Comment: Speci men Type: BLOOD SPECIMENOrdering Facility: [facility] Address: [address] [place] [address] Performed By: #### 2 4323-8 ####[facility] MILLWNCLIA [id number] [place] [address] [place] AST [Catalytic activity/Vol] 26 U/L Normal 14-40 [facility] Comment on above: Order Comment: Speci men Type: BLOOD SPECIMENOrdering Facility: [facility] Address: [address] [place] [address] Performed By: #### 2 4323-8 ####[facility] MILLWNCLIA [id number] [place] [address] [place] Bilirubin [Mass/Vol] 0.4 mg/dL Normal 0.2-1.3 [facility] Comment on above: Order Comment: Speci men Type: BLOOD SPECIMENOrdering Facility: [facility] Address: [address] [place] [address] Performed By: #### 2 4323-8 ####[facility] MILLTOWNCLIA [id number] [place] [address] [place] Calcium [Mass/Vol] 9.3 mg/dL Normal 8.5-10.2 [facility] Comment on above: Order Comment: Speci men Type: BLOOD SPECIMENOrdering Facility: [facility] Address: [address] [place] [address] Performed By: #### 2 4323-8 ####[facility]ITALWNCLIA [id number] [place] [address] [place] Chloride [Moles/Vol] 107 mmol/L Normal 98-107 [facility] Comment on above: Order Comment: Speci men Type: BLOOD SPECIMENOrdering Facility: [facility] Address: [address] [place] [address] Performed By: #### 2 4323-8 ####[facility]CAREL[facility] [id number] [place] [address] [place] CO2 [Moles/Vol] 24 mmol/L Normal 22-30 [facility] Comment on above: Order Comment: Speci men Type: BLOOD SPECIMENOrdering Facility: [facility] Address: [address] [place] [address] Performed By: #### 2 4323-8 ####[facility] [id number] [place] [address] [place] Creatinine [Mass/Vol] 0.83 mg/dL Normal 0.73-1.22 [facility] Comment on above: Order Comment: Speci men Type: BLOOD SPECIMENOrdering Facility: [facility] Address: [address] [place] [address] Performed By: #### 2 4323-8 ####[facility]ENTERA [id number] [address] OF [facility] Creatinine and Glomerular filtration rate.predicted panel (S/P/Bld) 98 mL/min/1.73m??? Normal >=60 [facility] Comment on above: Order Comment: Speci men Type: BLOOD SPECIMENOrdering Facility: [facility] Address: [address] [place] [address] Result Comment: Kisha mated Glomerular Filtration Rate (eGFR) is calculated using the 2020 CKD-EPI creatinine equation. This equation utilizes serum creatinine, sex, and age as parameters. The creatinine assay has traceable calibration to isotope dilution-mass spectrometry. Refer to KDIGO guidelines for clinical interpretation. In patients with unstable renal function, e.g. those with acute kidney injury, the eGFR may not accurately reflect actual GFR. Performed By: #### 2 4323-8 ####[facility]LL[facility]NCL[facility] [id number] [place] [address] [place] Glucose [Mass/Vol] 95 mg/dL Normal 74-99 [facility] Comment on above: Order Comment: Speci men Type: BLOOD SPECIMENOrdering Facility: [facility] Address: [address] [place], [place] [id number] Result Comment: The [place] Diabetes [employer] (ADA) provides guidance for cutoff values for fasting glucose and random glucose. The ADA defines fasting as no caloric intake for at least 8 hours. Fasting plasma glucose results between 100 to 125 mg/dL indicate increased risk for diabetes (prediabetes).Fasting plasma glucose results greater than or equal to 126 mg/dL meet the criteria for diagnosis of diabetes. In the absence of unequivocal hyperglycemia, results should be confirmed by repeat testing. In a patient with classic symptoms of hyperglycemia or hyperglycemic crisis, random plasma glucose results greater than or equal to 200 mg/dL meet the criteria for diagnosis of diabetes.Reference: Standards of Medical Care in Diabetes 2016, [place] Diabetes Association. Diabetes Care. 2016.39(Suppl 1). Performed By: #### 2 4323-8 ####[facility]AS[facility]CLIA [id number] [place] [address] [place] Potassium [Moles/Vol] 4.1 mmol/L Normal 3.7-5.1 [facility] Comment on above: Order Comment: Speci men Type: BLOOD SPECIMENOrdering Facility: [facility] Address: [address] [place] [address] Performed By: #### 2 4323-8 ####[facility] [id number] [place] [address] [place] Protein [Mass/Vol] 6.8 g/dL Normal 6.3-8.0 [facility] Comment on above: Order Comment: Speci men Type: BLOOD SPECIMENOrdering Facility: [facility] Address: [address] [place] [address] Performed By: #### 2 4323-8 ####[facility] KIESHAHENRY [id number] [place] [address] [place] Sodium [Moles/Vol] 141 mmol/L Normal 136-144 [facility] Comment on above: Order Comment: Speci men Type: BLOOD SPECIMENOrdering Facility: [facility] Address: [address] [place] [address] Performed By: #### 2 4323-8 ####[facility]DENITAGAR[facility] [id number] [place] [address] [place] Urea nitrogen [Mass/Vol] 12 mg/dL Normal 9-24 [facility] Comment on above: Order Comment: Speci men Type: BLOOD SPECIMENOrdering Facility: [facility] Address: [address] [place] [address] Performed By: #### 2 4323-8 ####[facility]LLASNCLIA [id number] [place] [address] [place] Cortis SerPl-mCncon 04-19-20 24 Cortisol [Mass/Vol] 5.1 ug/dL Normal 4.8-19.5 [facility] Comment on above: Order Comment: Speci men Type: BLOOD SPECIMENOrdering Facility: [facility] Address: [address] [place] [address] Result Comment: Prov ided reference range is from 6-10 AM sample collection time.Cortisol Reference Range: 6-10 AM = 4.8-19.5 ug/dL, 4-8 PM = 2.5-11.9 ug/dL Performed By: #### 3 016-3, 2143-6 ####[facility] LABCLIA [id number] [facility] [id number] [address] [place] TSH SerPl-aCncon 04-19-2024 TSH Qn 1.400 m[IU]/L Normal 0.270-4.200 [facility] Comment on above: Order Comment: Speci men Type: BLOOD SPECIMENOrdering Facility: [facility] Address: [address] [place] [address] Performed By: #### 3 016-3, 2143-6 ####[facility] LABCLIA [id number] [facility] [place] [place] [address] [place] CBC W Auto Differential pane l (Bld)on 04-02-2024 Basophils (Bld) [#/Vol] 0.05 10*3/uL Normal <0.11 [facility] Comment on above: Order Comment: Speci men Type: BLOOD SPECIMENOrdering Facility: [facility] Address: [address] [place] [address] Performed By: #### 5 7021-8 ####[facility] [id number] [place] [address] [place] Basophils/100 WBC (Bld) 0.9 % Normal [facility] Comment on above: Order Comment: Speci men Type: BLOOD SPECIMENOrdering Facility: [facility] Address: [address] [place] [address] Performed By: #### 5 7021-8 ####[facility] [id number] [place] [address] [place] Differential cell count method Nom (Bld) Auto Normal [facility] Comment on above: Order Comment: Speci men Type: BLOOD SPECIMENOrdering Facility: [facility] Address: [address] [place] [address] Performed By: #### 5 7021-8 ####[facility]LLASNCA [id number] [place] [address] [place] Eosinophils (Bld) [#/Vol] 0.36 10*3/uL Normal <0.46 [facility] Comment on above: Order Comment: Speci men Type: BLOOD SPECIMENOrdering Facility: [facility] Address: [address] [place] [address] Performed By: #### 5 7021-8 ####[facility] KIESHAHENRY [id number] [place] [address] [place] Eosinophils/100 WBC (Bld) 6.3 % Normal [facility] Comment on above: Order Comment: Speci men Type: BLOOD SPECIMENOrdering Facility: [facility] Address: [address] [place] [address] Performed By: #### 5 7021-8 ####[facility] P[facility]LLASNCRAJEEV [id number] [place] [address] [place] Erythrocyte distribution width (RBC) [Ratio] 12.4 % Normal 11.5-15.0 [facility] Comment on above: Order Comment: Speci men Type: BLOOD SPECIMENOrdering Facility: [facility] Address: [address] [place] [address] Performed By: #### 5 7021-8 ####[facility] P[facility]LLASNCYOHANAA [id number] [place] [address] [place] Hematocrit (Bld) [Volume fraction] 41.8 % Normal 39.0-51.0 [facility] Comment on above: Order Comment: Speci men Type: BLOOD SPECIMENOrdering Facility: [facility] Address: [address] [place] [address] Performed By: #### 5 7021-8 ####[facility]ASNCLIA [id number] [place] [address] [place] Hemoglobin (Bld) [Mass/Vol] 14.0 g/dL Normal 13.0-17.0 [facility] Comment on above: Order Comment: Speci men Type: BLOOD SPECIMENOrdering Facility: [facility] Address: [address] [place] [address] Performed By: #### 5 7021-8 ####[facility] HOSPITALWNCLIA [id number] [place] [address] [place] Immature granulocytes (Bld) [#/Vol] 10*3/uL Normal <0.10 [facility] Comment on above: Order Comment: Speci men Type: BLOOD SPECIMENOrdering Facility: [facility] Address: [address] [place] [address] Performed By: #### 5 7021-8 ####[facility] [id number] [place] [address] [place] Immature granulocytes/100 WBC (Bld) 0.4 % Normal [facility] Comment on above: Order Comment: Speci men Type: BLOOD SPECIMENOrdering Facility: [facility] Address: [address] [place] [address] Performed By: #### 5 7021-8 ####[facility]ENTERA [id number] [place] [address] [place] Lymphocytes (Bld) [#/Vol] 0.99 10*3/uL Low 1.00-4.00 [facility] Comment on above: Order Comment: Speci men Type: BLOOD SPECIMENOrdering Facility: [facility] Address: [address] [place] [address] Performed By: #### 5 7021-8 ####[facility]ENTERA [id number] [place] [address] [place] Lymphocytes/100 WBC (Bld) 17.5 % Normal [facility] Comment on above: Order Comment: Speci men Type: BLOOD SPECIMENOrdering Facility: [facility] Address: [address] [place] [address] Performed By: #### 5 7021-8 ####[facility] [id number] [place] [address] [place] MCH (RBC) [Entitic mass] 30.2 pg Normal 26.0-34.0 [facility] Comment on above: Order Comment: Speci men Type: BLOOD SPECIMENOrdering Facility: [facility] Address: [address] [place] [address] Performed By: #### 5 7021-8 ####[facility] [id number] [place] [address] [place] MCHC (RBC) [Mass/Vol] 33.5 g/dL Normal 30.5-36.0 [facility] Comment on above: Order Comment: Speci men Type: BLOOD SPECIMENOrdering Facility: [facility] Address: [address] [place], [place] [address] Performed By: #### 5 7021-8 ####[facility] [id number] [place] [address] [place] MCV (RBC) [Entitic vol] 90.3 fL Normal 80.0-100.0 [facility] Comment on above: Order Comment: Speci men Type: BLOOD SPECIMENOrdering Facility: [facility] Address: [address] [place] [address] Performed By: #### 5 7021-8 ####[facility] [id number] [place] [address] [place] Monocytes (Bld) [#/Vol] 0.61 10*3/uL Normal <0.87 [facility] Comment on above: Order Comment: Speci men Type: BLOOD SPECIMENOrdering Facility: [facility] Address: [address] [place] [address] Performed By: #### 5 7021-8 ####[facility] [id number] [address] [place] Monocytes/100 WBC (Bld) 10.8 % Normal [facility] Comment on above: Order Comment: Speci men Type: BLOOD SPECIMENOrdering Facility: [facility] Address: [address] [place] [address] Performed By: #### 5 7021-8 ####[facility] MILLTOWNCLIA [id number] [place] [address] [place] Neutrophils (Bld) [#/Vol] 3.64 10*3/uL Normal 1.45-7.50 [facility] Comment on above: Order Comment: Speci men Type: BLOOD SPECIMENOrdering Facility: [facility] Address: [address] [place] [address] Performed By: #### 5 7021-8 ####[facility] MILLTOWDENITALIA [id number] [place] [address] [place] Neutrophils/100 WBC (Bld) 64.1 % Normal [facility] Comment on above: Order Comment: Speci men Type: BLOOD SPECIMENOrdering Facility: [facility] Address: [address] [place] [address] Performed By: #### 5 7021-8 ####[facility] YENIFERWNCLIA [id number] [place] [address] [place] Nucleated RBC (Bld) [#/Vol] 10*3/uL Normal <0.01 [facility] Comment on above: Order Comment: Speci men Type: BLOOD SPECIMENOrdering Facility: [facility] Address: [address] [place] [address] Performed By: #### 5 7021-8 ####[facility] MILLTOWNCLIA [id number] [place] [address] [place] Nucleated RBC/100 WBC (Bld) [Ratio] 0.0 /100 WBC Normal [facility] Comment on above: Order Comment: Speci men Type: BLOOD SPECIMENOrdering Facility: [facility] Address: [address] [place] [address] Performed By: #### 5 7021-8 ####[facility] KIESHATOWNCLIA [id number] [place] [address] [place] Platelet mean volume (Bld) [Entitic vol] 8.5 fL Low 9.0-12.7 [facility] Comment on above: Order Comment: Speci men Type: BLOOD SPECIMENOrdering Facility: [facility] Address: [address] [place] [address] Performed By: #### 5 7021-8 ####[facility] KIESHANEW HOPEDENITALIA [id number] [place] [address] [place] Platelets (Bld) [#/Vol] 174 10*3/uL Normal 150-400 [facility] Comment on above: Order Comment: Speci men Type: BLOOD SPECIMENOrdering Facility: [facility] Address: [address] [place] [address] Performed By: #### 5 7021-8 ####[facility]LLASJUANA [id number] [place] [address] [place] RBC (Bld) [#/Vol] 4.63 10*6/uL Normal 4.20-6.00 [facility] Comment on above: Order Comment: Speci men Type: BLOOD SPECIMENOrdering Facility: [facility] Address: [address] [place] [address] Performed By: #### 5 7021-8 ####[facility]LLASDENITALIA [id number] [place] [address] [place] WBC (Bld) [#/Vol] 5.67 10*3/uL Normal 3.70-11.00 [facility] Comment on above: Order Comment: Speci men Type: BLOOD SPECIMENOrdering Facility: [facility] Address: [address] [place] [address] Performed By: #### 5 7021-8 ####[facility]ASNCLIA [id number] [address] [place] CNOVSPon 04-02-2024 CNOVSP Normal [facility] Comprehensive metabolic 2000 panelon 04-02-2024 Albumin [Mass/Vol] 4.6 g/dL Normal 3.9-4.9 [facility] Comment on above: Order Comment: Speci men Type: BLOOD SPECIMENOrdering Facility: [facility] Address: [address] [place] [address] Performed By: #### 2 4323-8 ####[facility] SALVATORE MILLTOWNCLIA [id number] [place] [address] [place] ALP [Catalytic activity/Vol] 104 U/L Normal 38-113 [facility] Comment on above: Order Comment: Speci men Type: BLOOD SPECIMENOrdering Facility: [facility] Address: [address] [place] [address] Performed By: #### 2 4323-8 ####[facility] MILLTOWNCLIA [id number] [place] [address] [place] ALT [Catalytic activity/Vol] 51 U/L Normal 10-54 [facility] Comment on above: Order Comment: Speci men Type: BLOOD SPECIMENOrdering Facility: [facility] Address: [address] [place] [address] Performed By: #### 2 4323-8 ####[facility] HOSPITALWNCLIA [id number] [place] [address] [place] Anion gap [Moles/Vol] 7 mmol/L Low 8-15 [facility] Comment on above: Order Comment: Speci men Type: BLOOD SPECIMENOrdering Facility: [facility] Address: [address] [place] [address] Performed By: #### 2 4323-8 ####[facility] SALVATORE MILLTOWNCLIA [id number] [place] [address] [place] AST [Catalytic activity/Vol] 35 U/L Normal 14-40 [facility] Comment on above: Order Comment: Speci men Type: BLOOD SPECIMENOrdering Facility: [facility] Address: [address] [place] [address] Performed By: #### 2 4323-8 ####[facility] SALVATORE JOSEPHYOHANAA [id number] [place] [address] [place] Bilirubin [Mass/Vol] 0.3 mg/dL Normal 0.2-1.3 [facility] Comment on above: Order Comment: Speci men Type: BLOOD SPECIMENOrdering Facility: [facility] Address: [address] [place] [address] Performed By: #### 2 4323-8 ####[facility] HOSPITALGERALDOA [id number] [place] [address] [place] Calcium [Mass/Vol] 9.7 mg/dL Normal 8.5-10.2 [facility] Comment on above: Order Comment: Speci men Type: BLOOD SPECIMENOrdering Facility: [facility] Address: [address] [place] [address] Performed By: #### 2 4323-8 ####[facility] KIESHANEW HOPEJUANA [id number] [place] [address] [place] Chloride [Moles/Vol] 105 mmol/L Normal 98-107 [facility] Comment on above: Order Comment: Speci men Type: BLOOD SPECIMENOrdering Facility: [facility] Address: [address] [place] [address] Performed By: #### 2 4323-8 ####[facility]NCL[facility] [id number] [place] [address] [place] CO2 [Moles/Vol] 30 mmol/L Normal 22-30 [facility] Comment on above: Order Comment: Speci men Type: BLOOD SPECIMENOrdering Facility: [facility] Address: [address] [place] [address] Performed By: #### 2 4323-8 ####[facility] [id number] [place] [address] [place] Creatinine [Mass/Vol] 0.81 mg/dL Normal 0.73-1.22 [facility] Comment on above: Order Comment: Speci men Type: BLOOD SPECIMENOrdering Facility: [facility] Address: [address] [place] [address] Performed By: #### 2 4323-8 ####[facility]ALTH[facility]EL[facility] [id number] [place] [address] [place] Creatinine and Glomerular filtration rate.predicted panel (S/P/Bld) 99 mL/min/1.73m??? Normal >=60 [facility] Comment on above: Order Comment: [facility] Type: BLOOD SPECIMENOrdering Facility: [facility] Address: [address] [place] [address] Result Comment: Kisha mated Glomerular Filtration Rate (eGFR) is calculated using the 2020 CKD-EPI creatinine equation. This equation utilizes serum creatinine, sex, and age as parameters. The creatinine assay has traceable calibration to isotope dilution-mass spectrometry. Refer to KDIGO guidelines for clinical interpretation. In patients with unstable renal function, e.g. those with acute kidney injury, the eGFR may not accurately reflect actual GFR. Performed By: #### 2 4323-8 ####[facility] [id number] [place] [address] [place] Glucose [Mass/Vol] 91 mg/dL Normal 74-99 [facility] Comment on above: Order Comment: Speci men Type: BLOOD SPECIMENOrdering Facility: [facility] Address: [address] [place] [address] Result Comment: The [place] Diabetes Association (ADA) provides guidance for cutoff values for fasting glucose and random glucose. The ADA defines fasting as no caloric intake for at least 8 hours. Fasting plasma glucose results between 100 to 125 mg/dL indicate increased risk for diabetes (prediabetes).Fasting plasma glucose results greater than or equal to 126 mg/dL meet the criteria for diagnosis of diabetes. In the absence of unequivocal hyperglycemia, results should be confirmed by repeat testing. In a patient with classic symptoms of hyperglycemia or hyperglycemic crisis, random plasma glucose results greater than or equal to 200 mg/dL meet the criteria for diagnosis of diabetes.Reference: Standards of Medical Care in Diabetes 2016, [place] Diabetes Association. Diabetes Care. 2016.39(Suppl 1). Performed By: #### 2 4323-8 ####[facility] MILLWDENITALIA [id number] [place] [address] [place] Potassium [Moles/Vol] 4.1 mmol/L Normal 3.7-5.1 [facility] Comment on above: Order Comment: Speci men Type: BLOOD SPECIMENOrdering Facility: [facility] Address: [address] [place] [address] Performed By: #### 2 4323-8 ####[facility]ALTHCARELIMaricruz [id number] [place] [address] [place] Protein [Mass/Vol] 6.8 g/dL Normal 6.3-8.0 [facility] Comment on above: Order Comment: Fatoui men Type: BLOOD SPECIMENOrdering Facility: [facility] Address: [address] [place] [address] Performed By: #### 2 4323-8 ####[facility] [id number] [place] [address] [place] Sodium [Moles/Vol] 142 mmol/L Normal 136-144 [facility] Comment on above: Order Comment: Speci men Type: BLOOD SPECIMENOrdering Facility: [facility] Address: [address] [place] [address] Performed By: #### 2 4323-8 ####[facility] [id number] [place] [address] [place] Urea nitrogen [Mass/Vol] 12 mg/dL Normal 9-24 [facility] Comment on above: Order Comment: Speci men Type: BLOOD SPECIMENOrdering Facility: [facility] Address: [address] [place] [address] Performed By: #### 2 4323-8 ####[facility] SALVATORE RIVERA [id number] [place] [address] [place] Cortis SerPl-mCncon 04-02-20 Cortisol [Mass/Vol] 5.9 ug/dL Normal 4.8-19.5 [facility] Comment on above: Order Comment: Speci men Type: BLOOD SPECIMENOrdering Facility: [facility] Address: [address] [place] [address] Result Comment: Prov ided reference range is from 6-10 AM sample collection time.Cortisol Reference Range: 6-10 AM = 4.8-19.5 ug/dL, 4-8 PM = 2.5-11.9 ug/dL Performed By: #### 3 016-3, 2143-02 ####[facility] LABCLIA [id number] [place] [address] [place] TSH SerPl-aCncon 04-02-2024 TSH Qn 1.490 m[IU]/L Normal 0.270-4.200 [facility] Comment on above: Order Comment: Speci men Type: BLOOD SPECIMENOrdering Facility: [facility] Address: [address] [place] [address] Performed By: #### 3 016-3, 2143-02 ####[facility] LABCLIA [id number] [place] [address] [place] CNPNon 03-31-2024 CNPN Normal [facility] CNPNon 03-30-2024 CNPN Normal [facility] CNPNon 03-23-2024 CNPN Normal [facility] CBC W Auto Differential pane l (Bld)on 03-22-2024 Basophils (Bld) [#/Vol] 0.06 10*3/uL Normal <0.11 [facility] Comment on above: Order Comment: Speci men Type: BLOOD SPECIMENOrdering Facility: [facility] Address: [address] [place] [address] Performed By: #### 5 7021-8 ####[facility] SALVATORE MILLTOWNCLIA [id number] [place] [address] [place] Basophils/100 WBC (Bld) 1.6 % Normal [facility] Comment on above: Order Comment: Speci men Type: BLOOD SPECIMENOrdering Facility: [facility] Address: [address] [place] [address] Performed By: #### 5 7021-8 ####[facility] HOSPITALWNCLIA [id number] [place] [address] [place] Differential cell count method Nom (Bld) Auto Normal [facility] Comment on above: Order Comment: Speci men Type: BLOOD SPECIMENOrdering Facility: [facility] Address: [address] [place] [address] Performed By: #### 5 7021-8 ####[facility] HOSPITALWNCLIA [id number] [place] [address] [place] Eosinophils (Bld) [#/Vol] 0.31 10*3/uL Normal <0.46 [facility] Comment on above: Order Comment: Speci men Type: BLOOD SPECIMENOrdering Facility: [facility] Address: [address] [place] [address] Performed By: #### 5 7021-8 ####[facility] MILLTOWNCLIA [id number] [place] [address] [place] Eosinophils/100 WBC (Bld) 8.0 % Normal [facility] Comment on above: Order Comment: Speci men Type: BLOOD SPECIMENOrdering Facility: [facility] Address: [address] [place] [address] Performed By: #### 5 7021-8 ####[facility] [id number] [place] [address] [place] Erythrocyte distribution width (RBC) [Ratio] 12.7 % Normal 11.5-15.0 [facility] Comment on above: Order Comment: Speci men Type: BLOOD SPECIMENOrdering Facility: [facility] Address: [address] [place] [address] Performed By: #### 5 7021-8 ####[facility] [id number] [place] [address] [place] Hematocrit (Bld) [Volume fraction] 39.9 % Normal 39.0-51.0 [facility] Comment on above: Order Comment: Speci men Type: BLOOD SPECIMENOrdering Facility: [facility] Address: [address] [place] [address] Performed By: #### 5 7021-8 ####[facility] [id number] [place] [address] [place] Hemoglobin (Bld) [Mass/Vol] 13.4 g/dL Normal 13.0-17.0 [facility] Comment on above: Order Comment: Speci men Type: BLOOD SPECIMENOrdering Facility: [facility] Address: [address] [place] [address] Performed By: #### 5 7021-8 ####[facility] [id number] [place] [address] [place] Immature granulocytes (Bld) [#/Vol] 10*3/uL Normal <0.10 [facility] Comment on above: Order Comment: Speci men Type: BLOOD SPECIMENOrdering Facility: [facility] Address: [address] [place] [address] Performed By: #### 5 7021-8 ####[facility] [id number] [place] [address] [place] Immature granulocytes/100 WBC (Bld) 0.3 % Normal [facility] Comment on above: Order Comment: Speci men Type: BLOOD SPECIMENOrdering Facility: [facility] Address: [address] [place] [address] Performed By: #### 5 7021-8 ####[facility] [id number] [place] [address] [place] Lymphocytes (Bld) [#/Vol] 1.16 10*3/uL Normal 1.00-4.00 [facility] Comment on above: Order Comment: Speci men Type: BLOOD SPECIMENOrdering Facility: [facility] Address: [address] [place] [address] Performed By: #### 5 7021-8 ####[facility] [id number] [place] [address] [place] Lymphocytes/100 WBC (Bld) 30.0 % Normal [facility] Comment on above: Order Comment: Speci men Type: BLOOD SPECIMENOrdering Facility: [facility] Address: [address] [place] [address] Performed By: #### 5 7021-8 ####[facility] [id number] [place] [address] [place] MCH (RBC) [Entitic mass] 30.8 pg Normal 26.0-34.0 [facility] Comment on above: Order Comment: Speci men Type: BLOOD SPECIMENOrdering Facility: [facility] Address: [address] [place] [address] Performed By: #### 5 7021-8 ####[facility] [id number] [place] [address] [place] MCHC (RBC) [Mass/Vol] 33.6 g/dL Normal 30.5-36.0 [facility] Comment on above: Order Comment: Speci men Type: BLOOD SPECIMENOrdering Facility: [facility] Address: [address] [place] [address] Performed By: #### 5 7021-8 ####[facility] KIESHANEW HOPENCYOHANAA [id number] [place] [address] [place] [facility] MCV (RBC) [Entitic vol] 91.7 fL Normal 80.0-100.0 [facility] Comment on above: Order Comment: Speci men Type: BLOOD SPECIMENOrdering Facility: [facility] Address: [address] [place] [address] Performed By: #### 5 7021-8 ####[facility] [id number] [place] [address] [place] Monocytes (Bld) [#/Vol] 0.44 10*3/uL Normal <0.87 [facility] Comment on above: Order Comment: Speci men Type: BLOOD SPECIMENOrdering Facility: [facility] Address: [address] [place] [address] Performed By: #### 5 7021-8 ####[facility] [id number] [place] [address] [place] Monocytes/100 WBC (Bld) 11.4 % Normal [facility] Comment on above: Order Comment: Speci men Type: BLOOD SPECIMENOrdering Facility: [facility] Address: [address] [place] [address] Performed By: #### 5 7021-8 ####[facility] [id number] [place] [address] [place] Neutrophils (Bld) [#/Vol] 1.89 10*3/uL Normal 1.45-7.50 [facility] Comment on above: Order Comment: Speci men Type: BLOOD SPECIMENOrdering Facility: [facility] Address: [address] [place] [address] Performed By: #### 5 7021-8 ####[facility] [id number] [place] [address] [place] Neutrophils/100 WBC (Bld) 48.7 % Normal [facility] Comment on above: Order Comment: Speci men Type: BLOOD SPECIMENOrdering Facility: [facility] Address: [address] [place] [address] Performed By: #### 5 7021-8 ####[facility] KIESHANEW HOPELEIGHTON [id number] [place] [address] [place] Nucleated RBC (Bld) [#/Vol] 10*3/uL Normal <0.01 [facility] Comment on above: Order Comment: Speci men Type: BLOOD SPECIMENOrdering Facility: [facility] Address: [address] [place] [address] Performed By: #### 5 7021-8 ####[facility] [id number] [place] [address] [place] Nucleated RBC/100 WBC (Bld) [Ratio] 0.0 /100 WBC Normal [facility] Comment on above: Order Comment: Speci men Type: BLOOD SPECIMENOrdering Facility: [facility] Address: [address] [place] [address] Performed By: #### 5 7021-8 ####[facility] [id number] [place] [address] [place] Platelet mean volume (Bld) [Entitic vol] 8.8 fL Low 9.0-12.7 [facility] Comment on above: Order Comment: Speci men Type: BLOOD SPECIMENOrdering Facility: [facility] Address: [address] [place] [address] Performed By: #### 5 7021-8 ####[facility] [id number] [place] [address] [place] Platelets (Bld) [#/Vol] 183 10*3/uL Normal 150-400 [facility] Comment on above: Order Comment: Speci men Type: BLOOD SPECIMENOrdering Facility: [facility] Address: [address] [place] [address] Performed By: #### 5 7021-8 ####[facility] H[facility]ITALWNCLIA [id number] [place] [address] [place] RBC (Bld) [#/Vol] 4.35 10*6/uL Normal 4.20-6.00 [facility] Comment on above: Order Comment: Speci men Type: BLOOD SPECIMENOrdering Facility: [facility] Address: [address] [place] [address] Performed By: #### 5 7021-8 ####[facility] [id number] [place] [address] [place] WBC (Bld) [#/Vol] 3.87 10*3/uL Normal 3.70-11.00 [facility] Comment on above: Order Comment: Speci men Type: BLOOD SPECIMENOrdering Facility: [facility] Address: [address] [place] [address] Performed By: #### 5 7021-8 ####[facility] [id number] [place] [address] [place] Comprehensive metabolic 2000 panelon 03-22-2024 Albumin [Mass/Vol] 4.5 g/dL Normal 3.9-4.9 [facility] Comment on above: Order Comment: Speci men Type: BLOOD SPECIMENOrdering Facility: [facility] Address: [address] [place] [address] Performed By: #### 2 4323-8 ####[facility] [id number] [place] [address] [place] ALP [Catalytic activity/Vol] 94 U/L Normal 38-113 [facility] Comment on above: Order Comment: Speci men Type: BLOOD SPECIMENOrdering Facility: [facility] Address: [address] [place] [address] Performed By: #### 2 4323-8 ####[facility] SALVATORE KIESHATOWNCLIA [id number] [place] [address] [place] ALT [Catalytic activity/Vol] 34 U/L Normal 10-54 [facility] Comment on above: Order Comment: Speci men Type: BLOOD SPECIMENOrdering Facility: [facility] Address: [address] [place] [address] Performed By: #### 2 4323-8 ####[facility] MILLWNCLIA [id number] [place] [address] [place] Anion gap [Moles/Vol] 8 mmol/L Normal 8-15 [facility] Comment on above: Order Comment: Speci men Type: BLOOD SPECIMENOrdering Facility: [facility] Address: [address] [place] [address] Performed By: #### 2 4323-8 ####[facility]OS[facility]ITALWNCLIA [id number] [place] [address] [place] AST [Catalytic activity/Vol] 24 U/L Normal 14-40 [facility] Comment on above: Order Comment: Speci men Type: BLOOD SPECIMENOrdering Facility: [facility] Address: [address] [place] [address] Performed By: #### 2 4323-8 ####[facility] MILLTOWNCLIA [id number] [place] [address] [place] Bilirubin [Mass/Vol] 0.2 mg/dL Normal 0.2-1.3 [facility] Comment on above: Order Comment: Speci men Type: BLOOD SPECIMENOrdering Facility: [facility] Address: [address] [place] [address] Performed By: #### 2 4323-8 ####[facility] [id number] [place] [address] [place] Calcium [Mass/Vol] 9.6 mg/dL Normal 8.5-10.2 [facility] Comment on above: Order Comment: Speci men Type: BLOOD SPECIMENOrdering Facility: [facility] Address: [address] [place] [address] Performed By: #### 2 4323-8 ####[facility] MILLTOWNCLIA [id number] [place] [address] [place] Chloride [Moles/Vol] 105 mmol/L Normal 98-107 [facility] Comment on above: Order Comment: Speci men Type: BLOOD SPECIMENOrdering Facility: [facility] Address: [address] [place] [address] Performed By: #### 2 4323-8 ####[facility] [id number] [place] [address] [place] CO2 [Moles/Vol] 27 mmol/L Normal 22-30 [facility] Comment on above: Order Comment: Speci men Type: BLOOD SPECIMENOrdering Facility: [facility] Address: [address] [place] [address] Performed By: #### 2 4323-8 ####[facility]CL[facility] [id number] [place] [address] [place] Creatinine [Mass/Vol] 0.87 mg/dL Normal 0.73-1.22 [facility] Comment on above: Order Comment: Speci men Type: BLOOD SPECIMENOrdering Facility: [facility] Address: [address] [place] [address] Performed By: #### 2 4323-8 ####[facility]NCL[facility] [id number] [place] [address] [place] Creatinine and Glomerular filtration rate.predicted panel (S/P/Bld) 97 mL/min/1.73m??? Normal >=60 [facility] Comment on above: Order Comment: Augustine zee Type: BLOOD SPECIMENOrdering Facility: [facility] Address: [address] [place] [address] Result Comment: Kisha mated Glomerular Filtration Rate (eGFR) is calculated using the 2020 CKD-EPI creatinine equation. This equation utilizes serum creatinine, sex, and age as parameters. The creatinine assay has traceable calibration to isotope dilution-mass spectrometry. Refer to KDIGO guidelines for clinical interpretation. In patients with unstable renal function, e.g. those with acute kidney injury, the eGFR may not accurately reflect actual GFR. Performed By: #### 2 4323-8 ####[facility] [id number] [place] [address] [place] Glucose [Mass/Vol] 94 mg/dL Normal 74-99 [facility] Comment on above: Order Comment: Augustine zee Type: BLOOD SPECIMENOrdering Facility: [facility] Address: [address] [place] [address] Result Comment: The [place] Diabetes Association (ADA) provides guidance for cutoff values for fasting glucose and random glucose. The ADA defines fasting as no caloric intake for at least 8 hours. Fasting plasma glucose results between 100 to 125 mg/dL indicate increased risk for diabetes (prediabetes).Fasting plasma glucose results greater than or equal to 126 mg/dL meet the criteria for diagnosis of diabetes. In the absence of unequivocal hyperglycemia, results should be confirmed by repeat testing. In a patient with classic symptoms of hyperglycemia or hyperglycemic crisis, random plasma glucose results greater than or equal to 200 mg/dL meet the criteria for diagnosis of diabetes.Reference: Standards of Medical Care in Diabetes 2016, [place] Diabetes Association. Diabetes Care. 2016.39(Suppl 1). Performed By: #### 2 4323-8 ####[facility] [id number] [place] [address] [place] Potassium [Moles/Vol] 4.1 mmol/L Normal 3.7-5.1 [facility] Comment on above: Order Comment: Speci men Type: BLOOD SPECIMENOrdering Facility: [facility] Address: [address] [place], [place] [address] Performed By: #### 2 4323-8 ####[facility] KIESHANEW HOPENCYOHANAA [id number] [place] [address] [place] Protein [Mass/Vol] 6.8 g/dL Normal 6.3-8.0 [facility] Comment on above: Order Comment: Speci men Type: BLOOD SPECIMENOrdering Facility: [facility] Address: [address] [place] [address] Performed By: #### 2 4323-8 ####[facility] [id number] [place] [address] [place] Sodium [Moles/Vol] 140 mmol/L Normal 136-144 [facility] Comment on above: Order Comment: Speci men Type: BLOOD SPECIMENOrdering Facility: [facility] Address: [address] [place] [address] Performed By: #### 2 4323-8 ####[facility] [id number] [place] [address] [place] Urea nitrogen [Mass/Vol] 18 mg/dL Normal 9-24 [facility] Comment on above: Order Comment: Speci men Type: BLOOD SPECIMENOrdering Facility: [facility] Address: [address] [place] [address] Performed By: #### 2 4323-8 ####[facility] [id number] [place] [address] [place] Cortis SerPl-mCdenitaon 03-22-20 24 Cortisol [Mass/Vol] 5.4 ug/dL Normal 4.8-19.5 [facility] Comment on above: Order Comment: Speci men Type: BLOOD SPECIMENOrdering Facility: [facility] Address: [address] [place] [address] Result Comment: Prov ided reference range is from 6-10 AM sample collection time.Cortisol Reference Range: 6-10 AM = 4.8-19.5 ug/dL, 4-8 PM = 2.5-11.9 ug/dL Performed By: #### 2 143-6, 3016-3 ####[facility] LABCLIA [id number] [place] [id number] [place] TSH SerPl-aCncon 03-22-2024 TSH Qn 1.330 m[IU]/L Normal 0.270-4.200 [facility] Comment on above: Order Comment: Speci men Type: BLOOD SPECIMENOrdering Facility: [facility] Address: [address] [place] [address] Performed By: #### 2 143-6, 3015-3 ####[facility] LABCLIA [id number] [address] [place] CNOVon 03-15-2024 CNOV Normal [facility] CNOVSPon 03-10-2024 CNOVSP Normal [facility] Venous Duplex US, Unilateral on 11-11-2021 Venous Duplex US, Unilateral [facility] [address] [facility] [place] [address] Venous Duplex US, Unilateral 11/11/21 1233 MR#: [id number] Acct: [id number] Name: CHUN ALCARAZ Rep #: [id number] : 1960 61 From: Josiah Donnelly MD Attending Dr: Dr. Luis Marin MD Status: BRANDEN MULLER Ordering Dr: Luis Marin MD Date: 11/11/21 Location: CVS Sex: M C Admitted: Reason For Study: Swelling RIGHT GSV is normal. CFV is compressible, spontaneous, phasic, competent and demonstrates normal augmentation. FV is compressible, spontaneous, phasic, competent and demonstrates normal augmentation. POP V is compressible, spontaneous, phasic, competent and demonstrates normal augmentation. T/P Trunk is compressible. PTV is compressible. RT PerV is compressible. Procedure This is a venous duplex using B-mode, color flow and spectral Doppler. Exam performed in department. A preliminary report was called and/or faxed to ED. VL/Venous Duplex US, Unilateral Interpretation Summary Deep veins of the right lower extremity are patent and compressible segmentally. There is no evidence of right lower extremity deep vein thrombosis. Valvular competence appears intact within the proximal deep venous system on the right . The right great saphenous vein appears patent and compressible segmentally. _ Ordering Physician: Luis Marin Referring Physician: [facility] Performed By: Migdalia Nicholson, RDCS, RVT 11/12/21 1904 Date Josiah Donnelly MD CC: Dr. Luis Marin MD; [facility] Date Dictated: 11/11/21 1233 Date Transcribed: 11/12/211903 Research Chef: Signed Normal [facility] Emergency Department Summary on 11-10-2021 Emergency Department Summary [facility] Medical Records Department [address] [place] [id number] Emergency Department Summary 11/10/21 MR#: [id number] Acct: [id number] Name: CHUN ALCARAZ Rep #: [id number] : 1960 61 From: Luis Marin MD [place]CP: [facility] Status[facility] ER Location: ED HPI History of Present Illness Chief Complaint: Lower Extremity Injury Detail of Chief Complaint: Bruising and mild swelling right lateral leg after knee replacement surgery Informant: patient and family Onset/Context/Timing Onset: Today Context: Gradual Onset Timing: Continuous Current Severity: Mild Maximum Severity: Mild Associated Symptoms Associated Symptoms: Negative for Parasthesia, Weakness and Loss of Funtion Narrative Narrative: 61-year-old male had knee replacement surgery done in [place] at [facility] orthopedics on the . Has been doing well he is already undergoing physical therapy. They noticed today bruising in his right calf. May be mild discomfort. Minimal swelling. He denies any chest pain or shortness of breath. He is never had a DVT or PE. He was concerned for those so came in to be evaluated. Prior similar symptoms: No Recent Illness/Hospitalizatio n: Yes PFSH PFS Medical History H/O prostate cancer Home Medications Cholecalciferol (Vitamin D3) [Vitamin D3] 5,000 unit PO DAILY 12/05/16 [History Last Taken Unknown] atorvastatin 20 mg PO DAILY 12/05/16 [History Last Taken Unknown] multivit with omh-HE-nacatkly [One Daily Xobni's BView Tablet] 1 ea PO DAILY 12/05/16 [History Last Taken Unknown] omeprazole 40 mg PO DAILY 12/05/16 [History Last Taken 02/10/17 05:30 40 MG] vitamin B complex-folic acid [Super B Maxi Complex Caplet] 0.4 mg PO DAILY 12/05/16 [History Last Taken Unknown] meloxicam 15 mg PO DAILY 07/20/19 [History Last Taken Unknown] Allergy/AdvReac Type Severity Reaction Status Date / Time codeine AdvReac Nausea Verified 11/10/21 15:01 milk AdvReac Other Verified 11/10/21 15:01 Surgical History History of knee surgery Social History Smoking Status: Current every day smoker tobacco type: cigarettes ROS ROS ED ROS Narrative Denies recent illness. Review of Systems ROS Unobtainable: Denies due to encephalopathy Constitutional Constitutional ED: Denies fever(s) Eyes Eyes: Denies change in vision ENT ENT ED: Denies ear pain Cardiovascular Cardiovascular: Denies chest pain Respiratory/Chest Respiratory/Chest: Denies cough or dyspnea Gastrointestinal Gastrointestinal: Denies abdominal pain, diarrhea, nausea or vomiting Genitourinary Genitourinary ED: Denies dysuria Musculoskeletal Musculoskeletal: Denies myalgias Integumentary Denies rash Neurologic Neurologic: Denies headache(s) Psychiatric Psychiatric: Denies depression Endocrine Endocrinology: Denies polyuria Hematologic/Lymphatic Hematologic/Lymphatic: Denies easy bruising Allergic/Immunologic Allergic/Immunologic ED: Denies urticaria EXAM Physical Exam Narrative Exam Narrative: 61-year-old male no acute distress vital signs stable afebrile. Pulse ox 98% on room air. No hypoxia. H EENT exam unremarkable. Neck nontender. Lungs clear to auscultation. Heart regular rate and rhythm rate about 100 no murmur. Abdomen soft nontender. Moving all 4 extremities. Neurovascular intact. Right knee replacement surgery is dry and clean. Bandage in place. He is mild bruising in his right medial calf. There is no tenderness. Minimal swelling. No cord. Dorsi plantar flexion intact. There is no swelling or tenderness above the knee. Clinically this looks like soft tissue postop swelling. Const Vital Signs: 11/10/21 15:02 Temperature 98 F Temperature Source Temporal Pulse Rate 108 H Respiratory Rate 18 Blood Pressure 145/93 H Blood Pressure Mean 110 Pulse Ox 98 Oxygen Delivery Method Room Air Positive well nourished and well developed; Negative for obese, cachectic, contractures or unkempt General Appearance ED: well developed and NAD; Negative for unkempt, cachectic or contractures Nutritional Appearance: Negative for cachectic or obese HEENT Reports moist mucous membranes normocephalic and atraumatic Eyes PERRL Neck full ROM and supple Thyroid: Negative for tender Chest Wall inspection of chest normal and palpation of chest normal Resp normal respiratory effort, No no retractions and clear to auscultation bilaterally Auscultation: Negative for rales, rhonchi or wheezes Cardio regular rate, regular rhythm, S1 normal heart sound, S2 normal heart sound and no murmurs GI non-tender, non-distended and no masses Auscultation: normoactive bowel sounds Palpation: soft; Negati (more content not included)... Normal [facility] .Auto Diffon 10-15-2021 Basophil, Absolute 0.10 10 3/mcL Normal 0.00-0.19 [facility] ([place]) Comment on above: Performed By: #### C BC, ADIFF, ANEU, BMP, GFR #### Natalie [address] [address] Basophils/100 WBC (Bld) 0.8 % Normal 0.0-2.5 [facility] ([place]) Comment on above: Performed By: #### C BC, ADIFF, ANEU, BMP, GFR #### [address] [address] Eosinophil, Absolute 0.20 10 3/mcL Normal 0.00-0.40 [facility] ([place]) Comment on above: Performed By: #### C BC, ADIFF, ANEU, BMP, GFR #### [address] [address] Eosinophils/100 WBC (Bld) 2.8 % Normal 0.0-7.0 [facility] ([place]) Comment on above: Performed By: #### C BC, ADIFF, ANEU, BMP, GFR #### [address] [address] Lymphocyte, Absolute 1.90 10 3/mcL Normal 0.77-3.85 [facility] ([place]) Comment on above: Performed By: #### C BC, ADIFF, ANEU, BMP, GFR #### [address] [address] Lymphocytes/100 WBC (Bld) 27.3 % Normal 10.0-50.0 [facility] ([place]) Comment on above: Performed By: #### C BC, ADIFF, ANEU, BMP, GFR #### [address] [address] Monocyte, Absolute 0.50 10 3/mcL Normal 0.15-1.00 [facility] ([place]) Comment on above: Performed By: #### C BC, ADIFF, ANEU, BMP, GFR #### [address] [address] Monocytes/100 WBC (Bld) 7.1 % Normal 1.7-13.0 [facility] ([place]) Comment on above: Performed By: #### C BC, ADIFF, ANEU, BMP, GFR #### [address] [address] Neutrophils/100 WBC (Bld) 62.0 % Normal 37.0-80.0 [facility] ([place]) Comment on above: Performed By: #### C BC, ADIFF, ANEU, BMP, GFR #### [address] [address] .GFRon 10-15-2021 GFR 103 ml/min/1.73sqm Normal [facility] ([place]) Comment on above: Result Comment: GFR Population mean for , Non- Americans Ages 20-29 = 116 mL/min/1.73 sq.m. Ages 30-39 = 107 mL/min/1.73 sq.m. Ages 40-49 = 99 mL/min/1.73 sq.m. Ages 50-59 = 93 mL/min/1.73 sq.m. Ages 60-69 = 85 mL/min/1.73 sq.m. Ages 70+ = 75 mL/min/1.73 sq.m. Chronic Kidney Disease: Less than 60 mL/min/1.73 square meters End Stage Renal Disease: Less than 15 mL/min/1.73 square meters Performed By: #### C BC, ADIFF, ANEU, BMP, GFR #### [address] [address] GFR Non- 85 ml/min/1.73sqm Normal [facility] ([place]) Comment on above: Result Comment: GFR Population mean for , Non- Americans Ages 20-29 = 116 mL/min/1.73 sq.m. Ages 30-39 = 107 mL/min/1.73 sq.m. Ages 40-49 = 99 mL/min/1.73 sq.m. Ages 50-59 = 93 mL/min/1.73 sq.m. Ages 60-69 = 85 mL/min/1.73 sq.m. Ages 70+ = 75 mL/min/1.73 sq.m. Chronic Kidney Disease: Less than 60 mL/min/1.73 square meters End Stage Renal Disease: Less than 15 mL/min/1.73 square meters Performed By: #### C BC, ADIFF, ANEU, BMP, GFR #### [address] [address] .NEUABSon 10-15-2021 Neutrophil, Absolute 4.30 10 3/mcL Normal 2.85-6.16 [facility] ([place]) Comment on above: Performed By: #### C BC, ADIFF, ANEU, BMP, GFR #### [address] [address] BMPon 10-15-2021 BUN/Creatinine Ratio 20 ratio Normal 7-27 [facility] ([place]) Comment on above: Performed By: #### C BC, ADIFF, ANEU, BMP, GFR #### [address] [address] Calcium [Mass/Vol] 9.4 mg/dL Normal 8.4-10.2 [facility]ly [facility] ([place]) Comment on above: Performed By: #### C BC, ADIFF, ANEU, BMP, GFR #### [address] [address] Chloride [Moles/Vol] 107 mmol/L Normal 98-107 [facility] ([place]) Comment on above: Performed By: #### C BC, ADIFF, ANEU, BMP, GFR #### [address] [address] CO2 [Moles/Vol] 30 mmol/L Normal 23-31 [facility] ([place]) Comment on above: Performed By: #### C BC, ADIFF, ANEU, BMP, GFR #### [address] [address] Creatinine [Mass/Vol] 0.91 mg/dL Normal 0.70-1.30 [facility] ([place]) Comment on above: Performed By: #### C BC, ADIFF, ANEU, BMP, GFR #### [address] [address] Electrolyte Balance 7.0 mEq/L Normal 4.0-15.0 Formerly [facility] ([place]) Comment on above: Performed By: #### C BC, ADIFF, ANEU, BMP, GFR #### [address] [address] Glucose [Mass/Vol] 96 mg/dL Normal 80-115 [facility] ([place]) Comment on above: Performed By: #### C BC, ADIFF, ANEU, BMP, GFR #### [address] [address] Potassium [Moles/Vol] 5.0 mmol/L Normal 3.5-5.1 [facility] ([place]) Comment on above: Performed By: #### C BC, ADIFF, ANEU, BMP, GFR #### [address] [address] Sodium [Moles/Vol] 144 mmol/L Normal 136-145 [facility] ([place]) Comment on above: Performed By: #### C BC, ADIFF, ANEU, BMP, GFR #### [address] [address] Urea nitrogen [Mass/Vol] 18 mg/dL Normal 7-18 [facility] ([place]) Comment on above: Performed By: #### C BC, ADIFF, ANEU, BMP, GFR #### [address] [address] CBCon 10-15-2021 Erythrocyte distribution width (RBC) [Ratio] 14.2 % Normal 11.5-14.5 [facility] ([place]) Comment on above: Performed By: #### C BC, ADIFF, ANEU, BMP, GFR #### [address] [address] Hematocrit (Bld) [Volume fraction] 38.4 % Low 42.0-52.0 [facility] ([place]) Comment on above: Performed By: #### C BC, ADIFF, ANEU, BMP, GFR #### [address] [address] Hgb 13.0 G/dL Low 14.0-18.0 [facility] ([place]) Comment on above: Performed By: #### C BC, ADIFF, ANEU, BMP, GFR #### [address] [address] MCH (RBC) [Entitic mass] 29.3 pg Normal 27.0-31.2 [facility] ([place]) Comment on above: Performed By: #### C BC, ADIFF, ANEU, BMP, GFR #### [address] [address] MCHC 33.9 G/dL Normal 31.8-35.4 [facility] ([place]) Comment on above: Performed By: #### C BC, ADIFF, ANEU, BMP, GFR #### [address] [address] MCV (RBC) [Entitic vol] 86.5 fL Normal 80.0-94.0 [facility] ([place]) Comment on above: Performed By: #### C BC, ADIFF, ANEU, BMP, GFR #### [address] [address] Platelet 338 10 3/mcL Normal 130-400 [facility] ([place]) Comment on above: Performed By: #### C BC, ADIFF, ANEU, BMP, GFR #### [address] [address] Platelet mean volume (Bld) [Entitic vol] 7.2 fL Low 7.4-10.4 [facility] ([place]) Comment on above: Performed By: #### C BC, ADIFF, ANEU, BMP, GFR #### [address] [address] RBC 4.44 10 6/mcL Normal 4.04-6.13 [facility] ([place]) Comment on above: Performed By: #### C BC, ADIFF, ANEU, BMP, GFR #### [address] [address] WBC 6.90 10 3/mcL Normal 4.60-10.80 [facility] ([place]) Comment on above: Performed By: #### C BC, ADIFF, ANEU, BMP, GFR #### [address] [address] LABORATORYOrdered By: Marla Nguyen on 10-15-2021 Basophil, Absolute 0.10 103/mcL Invalid Interpretation Code 0.00 - 0.19 10^3/mcL AO Auto Heme SS Basophils/100 WBC (Bld) 0.8 % Invalid Interpretation Code 0.0 - 2.5 % AO Auto Heme SS Eosinophil, Absolute 0.20 103/mcL Invalid Interpretation Code 0.00 - 0.40 10^3/mcL AO Auto Heme SS Eosinophils/100 WBC (Bld) 2.8 % Invalid Interpretation Code 0.0 - 7.0 % AO Auto Heme SS Erythrocyte distribution width (RBC) [Ratio] 14.2 % Invalid Interpretation Code 11.5 - 14.5 % AO Auto Heme SS Hematocrit (Bld) [Volume fraction] 38.4 % Invalid Interpretation Code 42.0 - 52.0 % AO Auto Heme SS Hemoglobin (Bld) [Mass/Vol] 13.0 G/dL Invalid Interpretation Code 14.0 - 18.0 G/dL AO Auto Heme SS Lymphocyte, Absolute 1.90 103/mcL Invalid Interpretation Code 0.77 - 3.85 10^3/mcL AO Auto Heme SS Lymphocytes/100 WBC (Bld) 27.3 % Invalid Interpretation Code 10.0 - 50.0 % AO Auto Heme SS MCH (RBC) [Entitic mass] 29.3 pg Invalid Interpretation Code 27.0 - 31.2 pg AO Auto Heme SS MCHC (RBC) [Mass/Vol] 33.9 G/dL Invalid Interpretation Code 31.8 - 35.4 G/dL AO Auto Heme SS MCV (RBC) [Entitic vol] 86.5 fL Invalid Interpretation Code 80.0 - 94.0 fL AO Auto Heme SS Monocyte, Absolute 0.50 103/mcL Invalid Interpretation Code 0.15 - 1.00 10^3/mcL AO Auto Heme SS Monocytes/100 WBC (Bld) 7.1 % Invalid Interpretation Code 1.7 - 13.0 % AO Auto Heme SS Neutrophil, Absolute 4.30 103/mcL Invalid Interpretation Code 2.85 - 6.16 10^3/mcL AO Auto Heme SS Neutrophils/100 WBC (Bld) 62.0 % Invalid Interpretation Code 37.0 - 80.0 % AO Auto Heme SS Platelet mean volume (Bld) [Entitic vol] 7.2 fL Invalid Interpretation Code 7.4 - 10.4 fL AO Auto Heme SS Platelets (Bld) [#/Vol] 338 103/mcL Invalid Interpretation Code 130 - 400 10^3/mcL AO Auto Heme SS RBC (Bld) [#/Vol] 4.44 106/mcL Invalid Interpretation Code 4.04 - 6.13 10^6/mcL AO Auto Heme SS WBC (Bld) [#/Vol] 6.90 103/mcL Invalid Interpretation Code 4.60 - 10.80 10^3/mcL AO Auto Heme SS LABORATORYOrdered By: Brittney Santillan on 10-15-2021 Calcium [Mass/Vol] 9.4 mg/dL Invalid Interpretation Code 8.4 - 10.2 mg/dL AO ADM SS Chloride [Moles/Vol] 107 mmol/L Invalid Interpretation Code 98 - 107 mmol/L AO ADM SS CO2 [Moles/Vol] 30 mmol/L Invalid Interpretation Code 23 - 31 mmol/L AO ADM SS Creatinine [Mass/Vol] 0.91 mg/dL Invalid Interpretation Code 0.70 - 1.30 mg/dL AO ADM SS Electrolyte Balance 7.0 mEq/L Invalid Interpretation Code 4.0 - 15.0 mEq/L AO ADM SS Glucose [Mass/Vol] 96 mg/dL Invalid Interpretation Code 80 - 115 mg/dL AO ADM SS Potassium [Moles/Vol] 5.0 mmol/L Invalid Interpretation Code 3.5 - 5.1 mmol/L AO ADM SS Sodium [Moles/Vol] 144 mmol/L Invalid Interpretation Code 136 - 145 mmol/L AO ADM SS Urea nitrogen [Mass/Vol] 18 mg/dL Invalid Interpretation Code 7 - 18 mg/dL AO ADM SS Urea nitrogen/Creatinine [Mass ratio] 20 ratio Invalid Interpretation Code 7 - 27 ratio AO ADM SS LABORATORYOrdered By: SYSTEM SYSTEM on 10-15-2021 GFR 103 ml/min/1.73sqm Invalid Interpretation Code AO Chemistry S GFR Non- 85 ml/min/1.73sqm Invalid Interpretation Code AO Chemistry S C-Reactive Proteinon 020 CRP [Mass/Vol] 0.2 mg/dL Normal <0.9 [facility] Reference Lab Comment on above: Performed By: #### W SR, CBC, CRP #### [facility] Routine Lab [address] [place], [place] [address] CBCon 02-16-2020 Absolute nRBC <0.01 Normal <0.01 [facility] Reference Lab Comment on above: Performed By: #### W SR, CBC, CRP #### [facility] Routine Lab [address] [place], [place] [address] Erythrocyte distribution width (RBC) [Ratio] 13.3 % Normal 11.5-15.0 [facility] Reference Lab Comment on above: Performed By: #### W SR, CBC, CRP #### [facility] Routine Lab [address] [place], [place] [address] Hematocrit (Bld) [Volume fraction] 45.1 % Normal 39.0-51.0 [facility] Reference Lab Comment on above: Performed By: #### W SR, CBC, CRP #### [facility] Routine Lab [address] [place] [address] Hemoglobin (Bld) [Mass/Vol] 14.1 g/dL Normal 13.0-17.0 [facility] Reference Lab Comment on above: Performed By: #### W SR, CBC, CRP #### [facility] Routine Lab [address] [place], [place] [address] MCH (RBC) [Entitic mass] 28.1 pG Normal 26.0-34.0 [facility] Reference Lab Comment on above: Performed By: #### W SR, CBC, CRP #### [facility] Routine Lab [address] [place], [place] [address] MCHC (RBC) [Mass/Vol] 31.3 g/dL Normal 30.5-36.0 [facility] Reference Lab Comment on above: Performed By: #### W SR, CBC, CRP #### [facility] Routine Lab [address] [place], [place] [address] MCV (RBC) [Entitic vol] 90.0 fL Normal 80.0-100.0 [facility] Reference Lab Comment on above: Performed By: #### W SR, CBC, CRP #### [facility] Routine Lab [address] [place], [place] [address] Platelet mean volume (Bld) [Entitic vol] 10.0 fL Normal 9.0-12.7 [facility] Reference Lab Comment on above: Performed By: #### W SR, CBC, CRP #### [facility] Routine Lab [address] [place], [place] [address] Platelets (Bld) [#/Vol] 290 10*3/uL Normal 150-400 [facility] Reference Lab Comment on above: Performed By: #### W SR, CBC, CRP #### [facility] Routine Lab [address] [place] [address] RBC (Bld) [#/Vol] 5.01 10*6/uL Normal 4.20-6.00 [facility] Reference Lab Comment on above: Performed By: #### W SR, CBC, CRP #### [facility] Routine Lab [address] [place] [address] WBC (Bld) [#/Vol] 6.63 10*3/uL Normal 3.70-11.00 [facility] Reference Lab Comment on above: Performed By: #### W SR, CBC, CRP #### [facility] Routine Lab [address] [place] [address] Sed Rate Westergrenon 2019 Sed Rate Westergren 5 mm/hr Normal 0-15 [facility] Reference Lab Comment on above: Performed By: #### W SR, CBC, CRP #### [facility] Routine Lab [address] [place] [address] CERVICAL MYELOGRAM IN SPECIA LSon 10-11-2019 CERVICAL MYELOGRAM IN SPECIALS CERVICAL MYELOGRAM IN SPECIALS Ordering Physician: Ry Nassar DO 10/11/2019 9:38 AM Cervical MYELOGRAM: Clinical Statement: Cervical disk degeneration. COMPARISON: None available. Radiation dose: 138 mGy Fluoroscopy time: 2.7 minutes CONSENT: Indication, benefits, and risks of the procedure were discussed with the patient. Risks discussed included, but were not limited to, bleeding, infection, headache, CSF leak, seizure, and nerve damage. All patient questions were answered. Written and verbal informed consent was obtained. PROCEDURE: Prior to the procedure a time-out was performed. Preop labs were reviewed. The patient was placed in the prone position on the fluoroscopic table. An appropriate site for percutaneous access to the spinal canal was selected and marked. This area was prepped and draped in the usual sterile manner. The skin and subcutaneous tissues were anesthetized with lidocaine. Under fluoroscopic guidance a 22 guage spinal needle was directed into the thecal sac at the T12-L1 interspace. Clear CSF returned. A spot fluoroscopic image was archived. Under fluoroscopy, 12 mL Isovue-300 was injected. The needle was then removed. A sterile Band-Aid was applied. Spot images were obtained in multiple obliquities. There was no immediate complication. The patient was sent to CT in stable condition. IMPRESSION: 1. Completed cervical myelogram. CT to follow. Dictated by Casting Operator Helper: Blair Christensen DO Reviewed and Signed by: Salinas Horan MD ---- Electronic Signature on File ---- Signed By: Salinas Horan MD [email or web address] Dictated: 10/11/2019 10:26 AM Signed: 10/11/2019 10:40 AM Reported By: SALINAS HORAN M.D. Signed By: SALINAS HORAN M.D. [facility] CT CERVICAL SP. WITH CONon 0 10-11-2019 CT CERVICAL SP. WITH CON CT CERVICAL SP. WITH CON Ordering Physician: Ry Nassar DO 10/11/2019 9:[address] MYELOGRAM OF THE CERVICAL SPINE WITH RECONSTRUCTION IMAGES Clinical Statement: Other cervical disk degeneration. Bilateral shoulder pain for 4 to 6 weeks. Numbness and pain in right arm. History of prostate cancer. TECHNIQUE: Axial scans were obtained through the cervical spine and the data were used to create sagittal and coronal reconstruction images. Intrathecal contrast was administered prior to the CT scan for myelogram as detailed separately. No comparison FINDINGS: No significant abnormalities are noted at the craniocervical junction region. C3-4: Degenerative disk disease with disk space narrowing with mild disk osteophyte complex formation posteriorly and uncovertebral degenerative change with mild narrowing of the central spinal canal and mild bilateral foraminal narrowing. C4-5: Shallow broad-based central disk protrusion without significant canal compromise. Neural foramina are patent. No disk herniation. C5-6: Mild to moderate degenerative disk disease with disk space narrowing and endplate degenerative change especially on the left side. Small central disk protrusion and uncovertebral degenerative change with mild central canal and bilateral foraminal narrowing. C6-7: Moderate degenerative disk disease with disk space narrowing and endplate degenerative change. Disk osteophyte complex formation posteriorly and uncovertebral degenerative change with mild to moderate narrowing of the central spinal canal. Mild left and moderate right foraminal narrowing. No focal disk herniation. C7-T1: Disk height is well-preserved. No disk herniation or canal stenosis. Reconstruction images demonstrate straightening of the normal cervical lordosis. No suspicious osseous lesions. No paraspinal masses. IMPRESSION: Multilevel degenerative disk disease and uncovertebral degenerative change most marked at the C6-7 level with mild to moderate central canal and moderate right foraminal narrowing Small central disk protrusions at the C4-5 and C5-C6 levels. ---- Electronic Signature on File ---- Signed By: Shira Thompson MD [email or web address] Dictated: 10/11/2019 9:31 AM Signed: 10/11/2019 9:54 AM Reported By: SHIRA THOMPSON M.D. Signed By: SHIRA THOMPSON M.D. [facility] CT LUMBAR SP WO CONon 2018 CT LUMBAR SP WO CON CT LUMBAR SP WO CON Ordering Physician: Tia Reeves NP 08/22/2019 12:[address] LUMBAR SPINE WITHOUT CONTRAST: Clinical Statement: Prior lumbar spine surgery November 2015. Bilateral shoulder and bilateral knee pain. Back pain. Comparison: No prior CT comparison. TECHNIQUE: Axial CT images of the lumbar spine were obtained without contrast. Sagittal and coronal reformats were also obtained. Metal artifact reduction reformats were also obtained in the axial, coronal and sagittal planes. FINDINGS: Five lumbar vertebral bodies are considered, counting from the lowermost visible disk. The lowermost ribs identified at the presumed T12 level based on this counting. Normal lumbar lordosis. No significant dextrocurvature or levocurvature. Vertebral bodies are well aligned. Postsurgical changes identified, related to L2, L3, L4, L5 and S1 posterior spinal fixation. Bilateral paraspinal rods and bilateral pedicle screws are noted at each of these levels. Interconnecting narendra is identified at L4-L5 level. Additionally, there is anterior fixation at L4-L5 and L5-S1. Decompressive laminectomy is also noted at L4-L5. No hardware fracture identified. There is mild michelle hardware lucency involving bilateral L2 pedicle screws (left greater than right). Minimal lucency is also present along the left S1 screw posteriorly. The right L2 screw breaches the superior endplate of L2 (coronal image 42/64). There is solid osseous fusion across the L4, L5 and S1 vertebral bodies. No obvious osseous fusion is identified between the bilateral posterior elements of L2 and L3. Osseous fusion is identified between the L3-L4 and L5-S1 posterior elements bilaterally. Although difficult to definitely identified, there is some degree of osseous fusion between the posterior elements of L4 and L5. Mild L1 superior endplate compression fracture is identified, especially more prominent to the left. There is approximately 20% height loss. No retropulsion. This is age indeterminate, however based on imaging appearance alone, it is favored to be remote in nature. Otherwise vertebral body heights are well-maintained. Bony mineralization is within normal limits. No other acute fractures identified. T12-L1: Mild facet arthrosis. Small left central and left foraminal protrusion. No spinal canal or neural foraminal stenosis. L1-L2: Small posterior disk bulge. Mild facet and ligamentous hypertrophy. Mild spinal canal stenosis is questioned. Moderate bilateral neural foraminal stenosis is likely present. L2-L3: Small posterior disk bulge is questioned. Mild facet hypertrophy. No significant spinal canal stenosis. No significant neural foraminal stenosis. Evaluation is suboptimal due to beam hardening artifact. L3-L4: Bilateral facet hypertrophy. No obvious spinal canal stenosis. No left and mild right neural foraminal stenosis. Evaluation is suboptimal due to beam hardening artifact. L4-L5: No obvious osseous spinal canal stenosis, evaluation is suboptimal due to beam hardening artifact. Neural foramina are difficult to assess. L5-S1: No spinal canal stenosis. No right and questionable mild left neural foraminal stenosis. Evaluation is suboptimal due to beam hardening artifact. Bilateral SI joint degenerative changes and vacuum phenomenon are identified. No prevertebral soft tissue swelling or edema. Moderate atherosclerotic calcifications are noted within the abdominal aorta and some of its major branches without any obvious aneurysmal dilatation. Bilateral nephrolithiasis is identified (left greater than right). IMPRESSION: 1. Mild L1 superior endplate compression fracture, more prominent to the left. This is age indeterminate, however is favored to be remote/chronic in nature based on and imaging appearance alone. 2. Postsurgical changes of the lumbar spine as described in detail in the body of the report. Mild lucency is identified along the bilateral L2 pedicle screws. Minimal lucency is identified involving the posterior portion of the left S1 screw. The right L2 pedicle screw breaches the superior endplate of L2. No significant osseous fusion is identified between the posterior elements of L2 and L3 bilaterally. 3. 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 4. Atherosclerotic disease. Bilateral nephrolithiasis. ---- Electronic Signature on File ---- Signed By: Ayla Chavez MD [email or web address] Dictated: 08/23/2019 9:43 AM Signed: 08/23/2019 10:19 AM Reported By: AYLA CHAVEZ M.D. Signed By: AYLA CHAVEZ M.D. [facility] Vital Signs Date Time Vital Sign Value Performing Clinician Margo bragg 02-28-2025 10:47-0400 Diastolic blood pressure 92 mm[Hg] Jose Brennan APRN.CNP Work Phone: [facility] 02-28-2025 10:47-0400 Systolic blood pressure 140 mm[Hg] Jose Brennan APRN.HUMAN PERFORMANCE PROFESSOR Work Phone: [facility] 02-28-2025 10:41-0400 Body mass index (BMI) [Ratio] 28.02 kg/m2 Jose Brennan APRN.HUMAN PERFORMANCE PROFESSOR Work Phone: [facility] 02-28-2025 10:41-0400 Body weight 86.8 kg Jose Brennan APRN.CNP Work Phone: [facility] 02-28-2025 10:41-0400 Heart rate 87 /min Jose Brennan APRN.HUMAN PERFORMANCE PROFESSOR Work Phone: [facility] 02-28-2025 10:41-0400 SaO2% (BldA) [Mass fraction] 98 % Jose Anu SENIOR MARKETING ANALYST.HUMAN PERFORMANCE PROFESSOR Work Phone: [facility] 01-17-2025 09:19-0400 Diastolic blood pressure 90 mm[Hg] Jose Anu SENIOR MARKETING ANALYST.HUMAN PERFORMANCE PROFESSOR Work Phone: [facility] 01-17-2025 09:19-0400 Systolic blood pressure 148 mm[Hg] Jose Anu SENIOR MARKETING ANALYST.HUMAN PERFORMANCE PROFESSOR Work Phone: [facility] 01-17-2025 09:14-0400 Body mass index (BMI) [Ratio] 29.47 kg/m2 Jose Anu SENIOR MARKETING ANALYST.HUMAN PERFORMANCE PROFESSOR Work Phone: [facility] 01-17-2025 09:14-0400 Body weight 91.3 kg Jose Anu SENIOR MARKETING ANALYST.HUMAN PERFORMANCE PROFESSOR Work Phone: [facility] 01-17-2025 09:14-0400 Heart rate 79 /min Jose Anu SENIOR MARKETING ANALYST.HUMAN PERFORMANCE PROFESSOR Work Phone: [facility] 01-17-2025 09:14-0400 SaO2% (BldA) [Mass fraction] 98 % Jose Anu SENIOR MARKETING ANALYST.HUMAN PERFORMANCE PROFESSOR Work Phone: [facility] 11-16-2024 10:54-0400 Body mass index (BMI) [Ratio] 29.96 kg/m2 Jose Anu SENIOR MARKETING ANALYST.HUMAN PERFORMANCE PROFESSOR Work Phone: [facility] 11-16-2024 10:54-0400 Body temperature 98.29 [degF] Jose Anu SENIOR MARKETING ANALYST.HUMAN PERFORMANCE PROFESSOR Work Phone: [facility] 11-16-2024 10:54-0400 Body weight 92.8 kg Jose Anu SENIOR MARKETING ANALYST.HUMAN PERFORMANCE PROFESSOR Work Phone: [facility] 11-16-2024 10:54-0400 Diastolic blood pressure 70 mm[Hg] Jose Anu SENIOR MARKETING ANALYST.HUMAN PERFORMANCE PROFESSOR Work Phone: [facility] 11-16-2024 10:54-0400 Heart rate 82 /min Jose Anu SENIOR MARKETING ANALYST.HUMAN PERFORMANCE PROFESSOR Work Phone: [facility] 11-16-2024 10:54-0400 SaO2% (BldA) [Mass fraction] 96 % Jose Brennan SENIOR MARKETING ANALYST.HUMAN PERFORMANCE PROFESSOR Work Phone: [facility] 11-16-2024 10:54-0400 Systolic blood pressure 120 mm[Hg] Jose Brennan SENIOR MARKETING ANALYST.HUMAN PERFORMANCE PROFESSOR Work Phone: [facility] 11-11-2024 08:24-0500 Body mass index (BMI) [Ratio] 30.39 kg/m2 Roger Dorsey MD Work Phone: [facility] 11-11-2024 08:24-0500 Body temperature 97.81 [degF] Roger Dorsey MD Work Phone: [facility] 11-11-2024 08:24-0500 Body weight 94.12 kg Roger Dorsey MD Work Phone: [facility] 11-11-2024 08:24-0500 Diastolic blood pressure 83 mm[Hg] Roger Dorsey MD Work Phone: [facility] 11-11-2024 08:24-0500 Heart rate 86 /min Roger Dorsey MD Work Phone: [facility] 11-11-2024 08:24-0500 SaO2% (BldA) [Mass fraction] 98 % Roger Dorsey MD Work Phone: [facility] 11-11-2024 08:24-0500 Systolic blood pressure 136 mm[Hg] Roger Dorsey MD Work Phone: [facility] 11-04-2024 13:55-0500 Body mass index (BMI) [Ratio] 30.02 kg/m2 Treatment Wstr Work Phone: [facility] 11-04-2024 13:55-0500 Body temperature 97.7 [degF] Treatment Wstr Work Phone: [facility] 11-04-2024 13:55-0500 Body weight 92.99 kg Treatment Wstr Work Phone: [facility] 11-04-2024 13:55-0500 Diastolic blood pressure 88 mm[Hg] Treatment Wstr Work Phone: [facility] 11-04-2024 13:55-0500 Heart rate 88 /min Treatment Wstr Work Phone: [facility] 11-04-2024 13:55-0500 SaO2% (BldA) [Mass fraction] 95 % Treatment Wstr Work Phone: [facility] 11-04-2024 13:55-0500 Systolic blood pressure 141 mm[Hg] Treatment Wstr Work Phone: [facility] 11-03-2024 09:53-0500 Body mass index (BMI) [Ratio] 30.68 kg/m2 Roger Dorsey MD Work Phone: [facility] 11-03-2024 09:53-0500 Body temperature 96.8 [degF] Roger Dorsey MD Work Phone: [facility] 11-03-2024 09:53-0500 Body weight 95.03 kg Roger Dorsey MD Work Phone: [facility] 11-03-2024 09:53-0500 Diastolic blood pressure 105 mm[Hg] Roger Dorsey MD Work Phone: [facility] 11-03-2024 09:53-0500 Heart rate 93 /min Roger Dorsey MD Work Phone: [facility] 11-03-2024 09:53-0500 SaO2% (BldA) [Mass fraction] 100 % Roger Dorsey MD Work Phone: [facility] 11-03-2024 09:53-0500 Systolic blood pressure 150 mm[Hg] Roger Dorsey MD Work Phone: [facility] 10-14-2024 08:14-0500 Body mass index (BMI) [Ratio] 30.17 kg/m2 Treatment Wstr Work Phone: [facility] 10-14-2024 08:14-0500 Body temperature 97.2 [degF] Treatment Wstr Work Phone: [facility] 10-14-2024 08:14-0500 Body weight 93.44 kg Treatment Wstr Work Phone: [facility] 10-14-2024 08:14-0500 Diastolic blood pressure 87 mm[Hg] Treatment Wstr Work Phone: [facility] 10-14-2024 08:14-0500 Heart rate 90 /min Treatment Wstr Work Phone: [facility] 10-14-2024 08:14-0500 Respiratory rate 18 /min Treatment Wstr Work Phone: [facility] 10-14-2024 08:14-0500 SaO2% (BldA) [Mass fraction] 97 % Treatment Wstr Work Phone: [facility] 10-14-2024 08:14-0500 Systolic blood pressure 153 mm[Hg] Treatment Wstr Work Phone: [facility] 10-07-2024 13:15-0500 Body temperature 97.11 [degF] Treatment Wstr Work Phone: [facility] 10-07-2024 13:15-0500 Diastolic blood pressure 87 mm[Hg] Treatment Wstr Work Phone: [facility] 10-07-2024 13:15-0500 Heart rate 87 /min Treatment Wstr Work Phone: [facility] 10-07-2024 13:15-0500 SaO2% (BldA) [Mass fraction] 97 % Treatment Wstr Work Phone: [facility] 10-07-2024 13:15-0500 Systolic blood pressure 146 mm[Hg] Treatment Wstr Work Phone: [facility] 10-06-2024 09:16-0500 Body mass index (BMI) [Ratio] 29.58 kg/m2 Roger Dorsey MD Work Phone: [facility] 10-06-2024 09:16-0500 Body temperature 97 [degF] Roger Dorsey MD Work Phone: [facility] 10-06-2024 09:16-0500 Body weight 91.63 kg Roger Dorsey MD Work Phone: [facility] 10-06-2024 09:16-0500 Diastolic blood pressure 90 mm[Hg] Roger Dorsey MD Work Phone: [facility] 10-06-2024 09:16-0500 Heart rate 87 /min Roger Dorsey MD Work Phone: [facility] 10-06-2024 09:16-0500 SaO2% (BldA) [Mass fraction] 96 % Roger Dorsey MD Work Phone: [facility] 10-06-2024 09:16-0500 Systolic blood pressure 142 mm[Hg] Roger Dorsey MD Work Phone: [facility] 09-23-2024 13:35-0500 Body mass index (BMI) [Ratio] 30.02 kg/m2 Treatment Wstr Work Phone: [facility] 09-23-2024 13:35-0500 Body temperature 97.11 [degF] Treatment Wstr Work Phone: [facility] 09-23-2024 13:35-0500 Body weight 92.99 kg Treatment Wstr Work Phone: [facility] 09-23-2024 13:35-0500 Diastolic blood pressure 79 mm[Hg] Treatment Wstr Work Phone: [facility] 09-23-2024 13:35-0500 Heart rate 80 /min Treatment Wstr Work Phone: [facility] 09-23-2024 13:35-0500 Respiratory rate 16 /min Treatment Wstr Work Phone: [facility] 09-23-2024 13:35-0500 SaO2% (BldA) [Mass fraction] 99 % Treatment Wstr Work Phone: [facility] 09-23-2024 13:35-0500 Systolic blood pressure 141 mm[Hg] Treatment Wstr Work Phone: [facility] 09-16-2024 13:40-0500 Body mass index (BMI) [Ratio] 29.95 kg/m2 Treatment Wstr Work Phone: [facility] 09-16-2024 13:40-0500 Body temperature 97.11 [degF] Treatment Wstr Work Phone: [facility] 09-16-2024 13:40-0500 Body weight 92.76 kg Treatment Wstr Work Phone: [facility] 09-16-2024 13:40-0500 Diastolic blood pressure 78 mm[Hg] Treatment Wstr Work Phone: [facility] 09-16-2024 13:40-0500 Heart rate 81 /min Treatment Wstr Work Phone: [facility] 09-16-2024 13:40-0500 SaO2% (BldA) [Mass fraction] 97 % Treatment Wstr Work Phone: [facility] 09-16-2024 13:40-0500 Systolic blood pressure 132 mm[Hg] Treatment Wstr Work Phone: [facility] 09-09-2024 08:32-0500 Body mass index (BMI) [Ratio] 28.99 kg/m2 Karon Robleroight Work Phone: [facility] 09-09-2024 08:32-0500 Body temperature 96.49 [degF] Karon Conte Work Phone: [facility] 09-09-2024 08:32-0500 Body weight 89.81 kg Karon Conte Work Phone: [facility] 09-09-2024 08:32-0500 Diastolic blood pressure 84 mm[Hg] Karon Conte Work Phone: [facility] 09-09-2024 08:32-0500 Heart rate 106 /min Karon Conte Work Phone: [facility] 09-09-2024 08:32-0500 SaO2% (BldA) [Mass fraction] 97 % Karonaziza Conte Work Phone: [facility] 09-09-2024 08:32-0500 Systolic blood pressure 130 mm[Hg] Karonkesha Conte Work Phone: [facility] 08-26-2024 13:42-0500 Body mass index (BMI) [Ratio] 29.65 kg/m2 Treatment Wstr Work Phone: [facility] 08-26-2024 13:42-0500 Body temperature 97 [degF] Treatment Wstr Work Phone: [facility] 08-26-2024 13:42-0500 Body weight 91.85 kg Treatment Wstr Work Phone: [facility] 08-26-2024 13:42-0500 Diastolic blood pressure 85 mm[Hg] Treatment Wstr Work Phone: [facility] 08-26-2024 13:42-0500 Heart rate 71 /min Treatment Wstr Work Phone: [facility] 08-26-2024 13:42-0500 Respiratory rate 18 /min Treatment Wstr Work Phone: [facility] 08-26-2024 13:42-0500 SaO2% (BldA) [Mass fraction] 99 % Treatment Wstr Work Phone: [facility] 08-26-2024 13:42-0500 Systolic blood pressure 134 mm[Hg] Treatment Wstr Work Phone: [facility] 08-19-2024 08:23-0500 Body mass index (BMI) [Ratio] 29.95 kg/m2 Treatment Wstr Work Phone: [facility] 08-19-2024 08:23-0500 Body temperature 97.81 [degF] Treatment Wstr Work Phone: [facility] 08-19-2024 08:23-0500 Body weight 92.76 kg Treatment Wstr Work Phone: [facility] 08-19-2024 08:23-0500 Diastolic blood pressure 80 mm[Hg] Treatment Wstr Work Phone: [facility] 08-19-2024 08:23-0500 Heart rate 71 /min Treatment Wstr Work Phone: [facility] 08-19-2024 08:23-0500 Respiratory rate 18 /min Treatment Wstr Work Phone: [facility] 08-19-2024 08:23-0500 SaO2% (BldA) [Mass fraction] 99 % Treatment Wstr Work Phone: [facility] 08-19-2024 08:23-0500 Systolic blood pressure 135 mm[Hg] Treatment Wstr Work Phone: [facility] 08-12-2024 14:29-0500 Body mass index (BMI) [Ratio] 29.65 kg/m2 Treatment Wstr Work Phone: [facility] 08-12-2024 14:29-0500 Body temperature 97.3 [degF] Treatment Wstr Work Phone: [facility] 08-12-2024 14:29-0500 Body weight 91.85 kg Treatment Wstr Work Phone: [facility] 08-12-2024 14:29-0500 Diastolic blood pressure 79 mm[Hg] Treatment Wstr Work Phone: [facility] 08-12-2024 14:29-0500 Heart rate 74 /min Treatment Wstr Work Phone: [facility] 08-12-2024 14:29-0500 SaO2% (BldA) [Mass fraction] 97 % Treatment Wstr Work Phone: [facility] 08-12-2024 14:29-0500 Systolic blood pressure 132 mm[Hg] Treatment Wstr Work Phone: [facility] 08-06-2024 11:32-0500 Body mass index (BMI) [Ratio] 29.14 kg/m2 Roger Dorsey MD Work Phone: [facility] 08-06-2024 11:32-0500 Body temperature 97 [degF] Roger Dorsey MD Work Phone: [facility] 08-06-2024 11:32-0500 Body weight 90.27 kg Roger Dorsey MD Work Phone: [facility] 08-06-2024 11:32-0500 Diastolic blood pressure 88 mm[Hg] Roger Dorsey MD Work Phone: [facility] 08-06-2024 11:32-0500 Heart rate 87 /min Roger Dorsey MD Work Phone: [facility] 08-06-2024 11:32-0500 SaO2% (BldA) [Mass fraction] 98 % Roger Dorsey MD Work Phone: [facility] 08-06-2024 11:32-0500 Systolic blood pressure 139 mm[Hg] Roger Dorsey MD Work Phone: [facility] 07-19-2024 07:57-0500 Diastolic blood pressure 72 mm[Hg] Jose Anu SENIOR MARKETING ANALYST.HUMAN PERFORMANCE PROFESSOR Work Phone: [facility] 07-19-2024 07:57-0500 Systolic blood pressure 124 mm[Hg] Jose Anu SENIOR MARKETING ANALYST.HUMAN PERFORMANCE PROFESSOR Work Phone: [facility] 07-19-2024 07:55-0500 Body mass index (BMI) [Ratio] 29.67 kg/m2 Jose Anu SENIOR MARKETING ANALYST.HUMAN PERFORMANCE PROFESSOR Work Phone: [facility] 07-19-2024 07:55-0500 Body weight 91.9 kg Jose Anu SENIOR MARKETING ANALYST.HUMAN PERFORMANCE PROFESSOR Work Phone: [facility] 07-19-2024 07:55-0500 Heart rate 78 /min Jose Anu SENIOR MARKETING ANALYST.HUMAN PERFORMANCE PROFESSOR Work Phone: [facility] 07-19-2024 07:55-0500 SaO2% (BldA) [Mass fraction] 98 % Jose Anu SENIOR MARKETING ANALYST.HUMAN PERFORMANCE PROFESSOR Work Phone: [facility] 06-23-2024 09:45-0400 Body mass index (BMI) [Ratio] 28.92 kg/m2 Roger Dorsey MD Work Phone: [facility] 06-23-2024 09:45-0400 Body temperature 97 [degF] Roger Dorsey MD Work Phone: [facility] 06-23-2024 09:45-0400 Body weight 89.58 kg Roger Dorsey MD Work Phone: [facility] 06-23-2024 09:45-0400 Diastolic blood pressure 79 mm[Hg] Roger Dorsey MD Work Phone: [facility] 06-23-2024 09:45-0400 Heart rate 86 /min Roger Dorsey MD Work Phone: [facility] 06-23-2024 09:45-0400 SaO2% (BldA) [Mass fraction] 99 % Roger Dorsey MD Work Phone: [facility] 06-23-2024 09:45-0400 Systolic blood pressure 145 mm[Hg] Roger Dorsey MD Work Phone: [facility] 06-23-2024 09:14-0400 Body mass index (BMI) [Ratio] 28.92 kg/m2 Vimal Stoner MD Work Phone: [facility] 06-23-2024 09:14-0400 Body temperature 97 [degF] Vimal Stoner MD Work Phone: [facility] 06-23-2024 09:14-0400 Body weight 89.58 kg Vimal Stoner MD Work Phone: [facility] 06-23-2024 09:14-0400 Diastolic blood pressure 79 mm[Hg] Vimal Stoner MD Work Phone: [facility] 06-23-2024 09:14-0400 Heart rate 86 /min Vimal Stoner MD Work Phone: [facility] 06-23-2024 09:14-0400 SaO2% (BldA) [Mass fraction] 99 % Vimal Stoner MD Work Phone: [facility] 06-23-2024 09:14-0400 Systolic blood pressure 145 mm[Hg] Vimal Stoner MD Work Phone: [facility] 06-18-2024 09:16-0400 Body mass index (BMI) [Ratio] 28.48 kg/m2 Roger Dorsey MD Work Phone: [facility] 06-18-2024 09:16-0400 Body temperature 97.39 [degF] Roger Dorsey MD Work Phone: [facility] 06-18-2024 09:16-0400 Body weight 88.22 kg Roger Dorsey MD Work Phone: [facility] 06-18-2024 09:16-0400 Diastolic blood pressure 80 mm[Hg] Roger Dorsey MD Work Phone: [facility] 06-18-2024 09:16-0400 Heart rate 84 /min Roger Dorsey MD Work Phone: [facility] 06-18-2024 09:16-0400 SaO2% (BldA) [Mass fraction] 100 % Roger Dorsey MD Work Phone: [facility] 06-18-2024 09:16-0400 Systolic blood pressure 117 mm[Hg] Roger Dorsey MD Work Phone: [facility] 06-04-2024 08:56-0400 Body mass index (BMI) [Ratio] 28.99 kg/m2 Karon Conte Work Phone: [facility] 06-04-2024 08:56-0400 Body temperature 97.5 [degF] Karon Conte Work Phone: [facility] 06-04-2024 08:56-0400 Body weight 89.81 kg Karon Conte Work Phone: [facility] 06-04-2024 08:56-0400 Diastolic blood pressure 74 mm[Hg] Karon Conte Work Phone: [facility] 06-04-2024 08:56-0400 Heart rate 99 /min Karon Conte Work Phone: [facility] 06-04-2024 08:56-0400 SaO2% (BldA) [Mass fraction] 98 % Karon Conte Work Phone: [facility] 06-04-2024 08:56-0400 Systolic blood pressure 123 mm[Hg] Karon Conte Work Phone: [facility] 05-27-2024 11:55-0400 Body temperature 96.8 [degF] Roger Dorsey MD Work Phone: [facility] 05-27-2024 11:55-0400 Diastolic blood pressure 90 mm[Hg] Roger Dorsey MD Work Phone: [facility] 05-27-2024 11:55-0400 Heart rate 88 /min Roger Dorsey MD Work Phone: [facility] 05-27-2024 11:55-0400 Respiratory rate 12 /min Roger Dorsey MD Work Phone: [facility] 05-27-2024 11:55-0400 SaO2% (BldA) [Mass fraction] 96 % Roger Dorsey MD Work Phone: [facility] 05-27-2024 11:55-0400 Systolic blood pressure 143 mm[Hg] Roger Dorsey MD Work Phone: [facility] 05-19-2024 13:54-0400 Diastolic blood pressure 73 mm[Hg] Jose Anu SENIOR MARKETING ANALYST.HUMAN PERFORMANCE PROFESSOR Work Phone: [facility] 05-19-2024 13:54-0400 Systolic blood pressure 127 mm[Hg] Jose Anu SENIOR MARKETING ANALYST.HUMAN PERFORMANCE PROFESSOR Work Phone: [facility] 05-19-2024 13:52-0400 Body mass index (BMI) [Ratio] 29.51 kg/m2 Jose Anu SENIOR MARKETING ANALYST.HUMAN PERFORMANCE PROFESSOR Work Phone: [facility] 05-19-2024 13:52-0400 Body temperature 98.01 [degF] Jose Anu SENIOR MARKETING ANALYST.HUMAN PERFORMANCE PROFESSOR Work Phone: [facility] 05-19-2024 13:52-0400 Body weight 91.4 kg Jose Anu SENIOR MARKETING ANALYST.HUMAN PERFORMANCE PROFESSOR Work Phone: [facility] 05-19-2024 13:52-0400 Heart rate 94 /min Jose Anu SENIOR MARKETING ANALYST.HUMAN PERFORMANCE PROFESSOR Work Phone: [facility] 05-17-2024 14:11-0400 Body mass index (BMI) [Ratio] 30.24 kg/m2 Treatment Wstr Work Phone: [facility] 05-17-2024 14:11-0400 Body temperature 98.1 [degF] Treatment Wstr Work Phone: [facility] 05-17-2024 14:11-0400 Body weight 93.67 kg Treatment Wstr Work Phone: [facility] 05-17-2024 14:11-0400 Diastolic blood pressure 84 mm[Hg] Treatment Wstr Work Phone: [facility] 05-17-2024 14:11-0400 Heart rate 83 /min Treatment Wstr Work Phone: [facility] 05-17-2024 14:11-0400 Respiratory rate 18 /min Treatment Wstr Work Phone: [facility] 05-17-2024 14:11-0400 SaO2% (BldA) [Mass fraction] 95 % Treatment Wstr Work Phone: [facility] 05-17-2024 14:11-0400 Systolic blood pressure 131 mm[Hg] Treatment Wstr Work Phone: [facility] 05-03-2024 13:20-0400 Body mass index (BMI) [Ratio] 30.24 kg/m2 Treatment Wstr Work Phone: [facility] 05-03-2024 13:20-0400 Body temperature 98.01 [degF] Treatment Wstr Work Phone: [facility] 05-03-2024 13:20-0400 Body weight 93.67 kg Treatment Wstr Work Phone: [facility] 05-03-2024 13:20-0400 Diastolic blood pressure 81 mm[Hg] Treatment Wstr Work Phone: [facility] 05-03-2024 13:20-0400 Heart rate 85 /min Treatment Wstr Work Phone: [facility] 05-03-2024 13:20-0400 Respiratory rate 16 /min Treatment Wstr Work Phone: [facility] 05-03-2024 13:20-0400 SaO2% (BldA) [Mass fraction] 94 % Treatment Wstr Work Phone: [facility] 05-03-2024 13:20-0400 Systolic blood pressure 129 mm[Hg] Treatment Wstr Work Phone: [facility] 04-30-2024 10:10-0400 Body mass index (BMI) [Ratio] 30.39 kg/m2 Karon Conte Work Phone: [facility] 04-30-2024 10:10-0400 Body temperature 97.11 [degF] Karon Conte Work Phone: [facility] 04-30-2024 10:10-0400 Body weight 94.12 kg Karon Conte Work Phone: [facility] 04-30-2024 10:10-0400 Diastolic blood pressure 82 mm[Hg] Karon Conte Work Phone: [facility] 04-30-2024 10:10-0400 Heart rate 82 /min Karon Conte Work Phone: [facility] 04-30-2024 10:10-0400 SaO2% (BldA) [Mass fraction] 97 % Karon Conte Work Phone: [facility] 04-30-2024 10:10-0400 Systolic blood pressure 129 mm[Hg] Karon Conte Work Phone: [facility] 04-19-2024 13:31-0400 Body mass index (BMI) [Ratio] 29.51 kg/m2 Treatment Wstr Work Phone: [facility] 04-19-2024 13:31-0400 Body temperature 97.7 [degF] Treatment Wstr Work Phone: [facility] 04-19-2024 13:31-0400 Body weight 91.4 kg Treatment Wstr Work Phone: [facility] 04-19-2024 13:31-0400 Diastolic blood pressure 74 mm[Hg] Treatment Wstr Work Phone: [facility] 04-19-2024 13:31-0400 Heart rate 84 /min Treatment Wstr Work Phone: [facility] 04-19-2024 13:31-0400 Respiratory rate 18 /min Treatment Wstr Work Phone: [facility] 04-19-2024 13:31-0400 SaO2% (BldA) [Mass fraction] 94 % Treatment Wstr Work Phone: [facility] 04-19-2024 13:31-0400 Systolic blood pressure 119 mm[Hg] Treatment Wstr Work Phone: [facility] 04-05-2024 14:30-0400 Body temperature 97 [degF] Treatment Wstr Work Phone: [facility] 04-05-2024 14:30-0400 Diastolic blood pressure 76 mm[Hg] Treatment Wstr Work Phone: [facility] 04-05-2024 14:30-0400 Heart rate 84 /min Treatment Wstr Work Phone: [facility] 04-05-2024 14:30-0400 Respiratory rate 16 /min Treatment Wstr Work Phone: [facility] 04-05-2024 14:30-0400 SaO2% (BldA) [Mass fraction] 100 % Treatment Wstr Work Phone: [facility] 04-05-2024 14:30-0400 Systolic blood pressure 142 mm[Hg] Treatment Wstr Work Phone: [facility] 04-02-2024 12:47-0400 Body mass index (BMI) [Ratio] 29.73 kg/m2 Karonkesha Conte Work Phone: [facility] 04-02-2024 12:47-0400 Body temperature 97.11 [degF] Karonkesha Conte Work Phone: [facility] 04-02-2024 12:47-0400 Body weight 92.08 kg Karonkesha Conte Work Phone: [facility] 04-02-2024 12:47-0400 Diastolic blood pressure 83 mm[Hg] Karonkesha Conte Work Phone: [facility] 04-02-2024 12:47-0400 Heart rate 91 /min Karonkesha Conte Work Phone: [facility] 04-02-2024 12:47-0400 SaO2% (BldA) [Mass fraction] 100 % Karon Conte Work Phone: [facility] 04-02-2024 12:47-0400 Systolic blood pressure 132 mm[Hg] Karonkesha Conte Work Phone: [facility] 03-22-2024 13:40-0400 Body mass index (BMI) [Ratio] 29.87 kg/m2 Treatment Wstr Work Phone: [facility] 03-22-2024 13:40-0400 Body temperature 97.11 [degF] Treatment Wstr Work Phone: [facility] 03-22-2024 13:40-0400 Body weight 92.53 kg Treatment Wstr Work Phone: [facility] 03-22-2024 13:40-0400 Diastolic blood pressure 83 mm[Hg] Treatment Wstr Work Phone: [facility] 03-22-2024 13:40-0400 Heart rate 80 /min Treatment Wstr Work Phone: [facility] 03-22-2024 13:40-0400 Respiratory rate 20 /min Treatment Wstr Work Phone: [facility] 03-22-2024 13:40-0400 Systolic blood pressure 119 mm[Hg] Treatment Wstr Work Phone: [facility] 03-15-2024 07:56-0400 Body mass index (BMI) [Ratio] 29.43 kg/m2 Jose Anu SENIOR MARKETING ANALYST.HUMAN PERFORMANCE PROFESSOR Work Phone: [facility] 03-15-2024 07:56-0400 Body weight 91.17 kg Jose Anu SENIOR MARKETING ANALYST.HUMAN PERFORMANCE PROFESSOR Work Phone: [facility] 03-15-2024 07:56-0400 Diastolic blood pressure 78 mm[Hg] Jose Anu SENIOR MARKETING ANALYST.HUMAN PERFORMANCE PROFESSOR Work Phone: [facility] 03-15-2024 07:56-0400 Heart rate 92 /min Jose Anu SENIOR MARKETING ANALYST.HUMAN PERFORMANCE PROFESSOR Work Phone: [facility] 03-15-2024 07:56-0400 SaO2% (BldA) [Mass fraction] 98 % Jose Anu SENIOR MARKETING ANALYST.HUMAN PERFORMANCE PROFESSOR Work Phone: [facility] 03-15-2024 07:56-0400 Systolic blood pressure 118 mm[Hg] Jose Anu SENIOR MARKETING ANALYST.HUMAN PERFORMANCE PROFESSOR Work Phone: [facility] 03-10-2024 08:43-0400 Body mass index (BMI) [Ratio] 30.17 kg/m2 Roger Dorsey MD Work Phone: [facility] 03-10-2024 08:43-0400 Body temperature 97.11 [degF] Roger Dorsey MD Work Phone: [facility] 03-10-2024 08:43-0400 Body weight 93.44 kg Roger Dorsey MD Work Phone: [facility] 03-10-2024 08:43-0400 Diastolic blood pressure 83 mm[Hg] Roger Dorsey MD Work Phone: [facility] 03-10-2024 08:43-0400 Heart rate 84 /min Roger Dorsey MD Work Phone: [facility] 03-10-2024 08:43-0400 SaO2% (BldA) [Mass fraction] 96 % Roger Dorsey MD Work Phone: [facility] 03-10-2024 08:43-0400 Systolic blood pressure 143 mm[Hg] Roger Dorsey MD Work Phone: [facility] 02-18-2024 11:17-0400 Body temperature 97.39 [degF] Vimal Stoner MD Work Phone: [facility] 02-18-2024 11:17-0400 Diastolic blood pressure 83 mm[Hg] Vimal Stoner MD Work Phone: [facility] 02-18-2024 11:17-0400 Heart rate 90 /min Vimal Stoner MD Work Phone: [facility] 02-18-2024 11:17-0400 SaO2% (BldA) [Mass fraction] 100 % Vimal Stoner MD Work Phone: [facility] 02-18-2024 11:17-0400 Systolic blood pressure 143 mm[Hg] Vimal Stoner MD Work Phone: [facility] 02-11-2024 14:31-0400 Body mass index (BMI) [Ratio] 30.53 kg/m2 Roger Dorsey MD Work Phone: [facility] 02-11-2024 14:31-0400 Body temperature 96.69 [degF] Roger Dorsey MD Work Phone: [facility] 02-11-2024 14:31-0400 Body weight 94.58 kg Roger Dorsey MD Work Phone: [facility] 02-11-2024 14:31-0400 Diastolic blood pressure 91 mm[Hg] Roger Dorsey MD Work Phone: [facility] 02-11-2024 14:31-0400 Heart rate 98 /min Roger Dorsey MD Work Phone: [facility] 02-11-2024 14:31-0400 SaO2% (BldA) [Mass fraction] 99 % Roger Dorsey MD Work Phone: [facility] 02-11-2024 14:31-0400 Systolic blood pressure 151 mm[Hg] Roger Dorsey MD Work Phone: [facility] 01-26-2024 11:41-0400 Diastolic blood pressure 70 mm[Hg] Treatment Wstr Work Phone: [facility] 01-26-2024 11:41-0400 Heart rate 82 /min Treatment [facility]str Work Phone: [facility] 01-26-2024 11:41-0400 Respiratory rate 16 /min Treatment [facility]str Work Phone: [facility] 01-26-2024 11:41-0400 SaO2% (BldA) [Mass fraction] 97 % Treatment [facility] Work Phone: [facility] 01-26-2024 11:41-0400 Systolic blood pressure 128 mm[Hg] Treatment [facility]str Work Phone: [facility] 01-26-2024 08:54-0400 Body mass index (BMI) [Ratio] 30.17 kg/m2 Treatment [facility]str Work Phone: [facility] 01-26-2024 08:54-0400 Body temperature 97.59 [degF] Treatment [facility]str Work Phone: [facility] 01-26-2024 08:54-0400 Body weight 93.44 kg Treatment [facility]str Work Phone: [facility] 01-06-2024 13:49-0400 Body mass index (BMI) [Ratio] 30.9 kg/m2 Jose Anu SENIOR MARKETING ANALYST.HUMAN PERFORMANCE PROFESSOR Work Phone: [facility] 01-06-2024 13:49-0400 Body weight 95.71 kg Jose Anu SENIOR MARKETING ANALYST.HUMAN PERFORMANCE PROFESSOR Work Phone: [facility] 01-06-2024 13:49-0400 Diastolic blood pressure 72 mm[Hg] Jose Anu SENIOR MARKETING ANALYST.HUMAN PERFORMANCE PROFESSOR Work Phone: [facility] 01-06-2024 13:49-0400 Heart rate 93 /min Jose Anu SENIOR MARKETING ANALYST.HUMAN PERFORMANCE PROFESSOR Work Phone: [facility] 01-06-2024 13:49-0400 SaO2% (BldA) [Mass fraction] 98 % Jose Anu SENIOR MARKETING ANALYST.HUMAN PERFORMANCE PROFESSOR Work Phone: [facility] 01-06-2024 13:49-0400 Systolic blood pressure 138 mm[Hg] Jose Anu SENIOR MARKETING ANALYST.HUMAN PERFORMANCE PROFESSOR Work Phone: [facility] 01-05-2024 13:38-0400 Body temperature 97 [degF] Treatment [facility]str Work Phone: [facility] 01-05-2024 13:38-0400 Diastolic blood pressure 79 mm[Hg] Treatment [facility]str Work Phone: [facility] 01-05-2024 13:38-0400 Heart rate 86 /min Treatment [facility]str Work Phone: [facility] 01-05-2024 13:38-0400 Respiratory rate 18 /min Treatment [facility]str Work Phone: [facility] 01-05-2024 13:38-0400 SaO2% (BldA) [Mass fraction] 93 % Treatment [facility] Work Phone: [facility] 01-05-2024 13:38-0400 Systolic blood pressure 122 mm[Hg] Treatment [facility]str Work Phone: [facility] 01-01-2024 14:44-0400 Body mass index (BMI) [Ratio] 30.31 kg/m2 Roger Dorsey MD Work Phone: [facility] 01-01-2024 14:44-0400 Body temperature 97.39 [degF] Roger Dorsey MD Work Phone: [facility] 01-01-2024 14:44-0400 Body weight 93.89 kg Roger Dorsey MD Work Phone: [facility] 01-01-2024 14:44-0400 Diastolic blood pressure 84 mm[Hg] Roger Dorsey MD Work Phone: [facility] 01-01-2024 14:44-0400 Heart rate 54 /min Roger Dorsey MD Work Phone: [facility] 01-01-2024 14:44-0400 SaO2% (BldA) [Mass fraction] 97 % Roger Dorsey MD Work Phone: [facility] 01-01-2024 14:44-0400 Systolic blood pressure 145 mm[Hg] Roger Dorsey MD Work Phone: [facility] 12-30-2023 08:51-0400 Body temperature 97 [degF] Vimal Stoner MD Work Phone: [facility] 12-30-2023 08:51-0400 Diastolic blood pressure 78 mm[Hg] Vimal Stoner MD Work Phone: [facility] 12-30-2023 08:51-0400 Heart rate 88 /min Vimal Stoner MD Work Phone: [facility] 12-30-2023 08:51-0400 SaO2% (BldA) [Mass fraction] 98 % Vimal Stoner MD Work Phone: [facility] 12-30-2023 08:51-0400 Systolic blood pressure 134 mm[Hg] Vimal Stoner MD Work Phone: [facility] 12-23-2023 08:56-0400 Body temperature 97.5 [degF] Vimal Stoner MD Work Phone: [facility] 12-23-2023 08:56-0400 Diastolic blood pressure 81 mm[Hg] Vimal Stoner MD Work Phone: [facility] 12-23-2023 08:56-0400 Heart rate 85 /min Vimal Stoner MD Work Phone: [facility] 12-23-2023 08:56-0400 SaO2% (BldA) [Mass fraction] 98 % Vimal Stoner MD Work Phone: [facility] 12-23-2023 08:56-0400 Systolic blood pressure 127 mm[Hg] Vimal Stoner MD Work Phone: [facility] 12-17-2023 08:49-0400 Body temperature 97.2 [degF] Vimal Stoner MD Work Phone: [facility] 12-17-2023 08:49-0400 Diastolic blood pressure 78 mm[Hg] Vimal Stoner MD Work Phone: [facility] 12-17-2023 08:49-0400 Heart rate 74 /min Vimal Stoner MD Work Phone: [facility] 12-17-2023 08:49-0400 SaO2% (BldA) [Mass fraction] 98 % Vimal Stoner MD Work Phone: [facility] 12-17-2023 08:49-0400 Systolic blood pressure 150 mm[Hg] Vimal Stoner MD Work Phone: [facility] 12-16-2023 14:39-0400 Body weight 92.99 kg Marry Smith SENIOR MARKETING ANALYST.PEDIATRIC REGISTERED NURSE Work Phone: [facility] 12-16-2023 14:39-0400 Diastolic blood pressure 81 mm[Hg] Marry Smith SENIOR MARKETING ANALYST.PEDIATRIC REGISTERED NURSE Work Phone: [facility] 12-16-2023 14:39-0400 Heart rate 72 /min Marry Smith SENIOR MARKETING ANALYST.PEDIATRIC REGISTERED NURSE Work Phone: [facility] 12-16-2023 14:39-0400 Respiratory rate 16 /min Marry Smith SENIOR MARKETING ANALYST.PEDIATRIC REGISTERED NURSE Work Phone: [facility] 12-16-2023 14:39-0400 Systolic blood pressure 126 mm[Hg] Marry Smith SENIOR MARKETING ANALYST.PEDIATRIC REGISTERED NURSE Work Phone: [facility] 12-15-2023 13:04-0400 Body temperature 97.59 [degF] Treatment [facility]str Work Phone: [facility] 12-15-2023 13:04-0400 Diastolic blood pressure 72 mm[Hg] Treatment [facility]str Work Phone: [facility] 12-15-2023 13:04-0400 Heart rate 72 /min Treatment [facility]str Work Phone: [facility] 12-15-2023 13:04-0400 Respiratory rate 18 /min Treatment [facility]str Work Phone: [facility] 12-15-2023 13:04-0400 SaO2% (BldA) [Mass fraction] 100 % Treatment [facility]str Work Phone: [facility] 12-15-2023 13:04-0400 Systolic blood pressure 121 mm[Hg] Treatment [facility]str Work Phone: [facility] 12-12-2023 11:52-0400 Body temperature 97.39 [degF] Roger Dorsey MD Work Phone: [facility] 12-12-2023 11:52-0400 Body weight 93.21 kg Roger Dorsey MD Work Phone: [facility] 12-12-2023 11:52-0400 Diastolic blood pressure 75 mm[Hg] Roger Dorsey MD Work Phone: [facility] 12-12-2023 11:52-0400 Heart rate 75 /min Roger Dorsey MD Work Phone: [facility] 12-12-2023 11:52-0400 SaO2% (BldA) [Mass fraction] 99 % Roger Dorsey MD Work Phone: [facility] 12-12-2023 11:52-0400 Systolic blood pressure 121 mm[Hg] Roger Dorsey MD Work Phone: [facility] 12-09-2023 09:00-0400 Body temperature 97.2 [degF] Roscoe Huddleston MD Work Phone: [facility] 12-09-2023 09:00-0400 Body weight 93.44 kg Roscoe Huddleston MD Work Phone: [facility] 12-09-2023 09:00-0400 Diastolic blood pressure 93 mm[Hg] Roscoe Huddleston MD Work Phone: [facility] 12-09-2023 09:00-0400 Heart rate 78 /min Roscoe Huddleston MD Work Phone: [facility] 12-09-2023 09:00-0400 SaO2% (BldA) [Mass fraction] 97 % Roscoe Huddleston MD Work Phone: [facility] 12-09-2023 09:00-0400 Systolic blood pressure 132 mm[Hg] Roscoe Huddleston MD Work Phone: [facility] 12-02-2023 09:03-0400 Body temperature 97.11 [degF] Matthew Snáchez MD Work Phone: [facility] 12-02-2023 09:03-0400 Body weight 92.53 kg Matthew Sánchez MD Work Phone: [facility] 12-02-2023 09:03-0400 Diastolic blood pressure 84 mm[Hg] Matthew Sánchez MD Work Phone: [facility] 12-02-2023 09:03-0400 Heart rate 78 /min Matthew Sánchez MD Work Phone: [facility] 12-02-2023 09:03-0400 SaO2% (BldA) [Mass fraction] 98 % Matthew Sánchez MD Work Phone: [facility] 12-02-2023 09:03-0400 Systolic blood pressure 126 mm[Hg] Matthew Sánchez MD Work Phone: [facility] 11-25-2023 13:20-0400 Body weight 93.89 kg Jose Anu SENIOR MARKETING ANALYST.HUMAN PERFORMANCE PROFESSOR Work Phone: [facility] 11-25-2023 13:20-0400 Diastolic blood pressure 81 mm[Hg] Jose Anu SENIOR MARKETING ANALYST.HUMAN PERFORMANCE PROFESSOR Work Phone: [facility] 11-25-2023 13:20-0400 Heart rate 79 /min Jose Anu SENIOR MARKETING ANALYST.HUMAN PERFORMANCE PROFESSOR Work Phone: [facility] 11-25-2023 13:20-0400 Respiratory rate 16 /min Jose Anu SENIOR MARKETING ANALYST.HUMAN PERFORMANCE PROFESSOR Work Phone: [facility] 11-25-2023 13:20-0400 Systolic blood pressure 122 mm[Hg] Jose Contrerasmaira RODRIGEZ Work Phone: [facility] 11-25-2023 09:02-0400 Body temperature 98.01 [degF] Vimal Stoner MD Work Phone: [facility] 11-25-2023 09:02-0400 Diastolic blood pressure 81 mm[Hg] Vimal Stoner MD Work Phone: [facility] 11-25-2023 09:02-0400 Heart rate 79 /min Vimal Stoner MD Work Phone: [facility] 11-25-2023 09:02-0400 SaO2% (BldA) [Mass fraction] 98 % Vimal Stoner MD Work Phone: [facility] 11-25-2023 09:02-0400 Systolic blood pressure 122 mm[Hg] Vimal Stoner MD Work Phone: [facility] 11-24-2023 08:28-0400 Body temperature 97.39 [degF] Treatment [facility]str Work Phone: [facility] 11-24-2023 08:28-0400 Diastolic blood pressure 83 mm[Hg] Treatment [facility]str Work Phone: [facility] 11-24-2023 08:28-0400 Heart rate 72 /min Treatment [facility]str Work Phone: [facility] 11-24-2023 08:28-0400 SaO2% (BldA) [Mass fraction] 98 % Treatment [facility]str Work Phone: [facility] 11-24-2023 08:28-0400 Systolic blood pressure 147 mm[Hg] Treatment [facility]str Work Phone: [facility] 11-24-2023 08:00-0400 Body weight 93.44 kg Treatment [facility]str Work Phone: [facility] 11-19-2023 10:57-0400 Body height 176 cm Roger Dorsey MD Work Phone: [facility] 11-19-2023 10:57-0400 Body temperature 97.3 [degF] Roger Dorsey MD Work Phone: [facility] 11-19-2023 10:57-0400 Body weight 92.08 kg Roger Dorsey MD Work Phone: [facility] 11-19-2023 10:57-0400 Diastolic blood pressure 82 mm[Hg] Roger Dorsey MD Work Phone: [facility] 11-19-2023 10:57-0400 Heart rate 80 /min Roger Dorsey MD Work Phone: [facility] 11-19-2023 10:57-0400 SaO2% (BldA) [Mass fraction] 98 % Roger Dorsey MD Work Phone: [facility] 11-19-2023 10:57-0400 Systolic blood pressure 126 mm[Hg] Roger Dorsey MD Work Phone: [facility] 11-12-2023 09:47-0500 Body temperature 97.39 [degF] Vimal Stoner MD Work Phone: [facility] 11-12-2023 09:47-0500 Body weight 92.53 kg Vimal Stoner MD Work Phone: [facility] 11-12-2023 09:47-0500 Diastolic blood pressure 79 mm[Hg] Vimal Stoner MD Work Phone: [facility] 11-12-2023 09:47-0500 Heart rate 77 /min Vimal Stoner MD Work Phone: [facility] 11-12-2023 09:47-0500 SaO2% (BldA) [Mass fraction] 97 % Vimal Stoner MD Work Phone: [facility] 11-12-2023 09:47-0500 Systolic blood pressure 122 mm[Hg] Vimal Stoner MD Work Phone: [facility] 11-10-2023 08:03-0500 Body height 177.8 cm Jose Anu SENIOR MARKETING ANALYST.HUMAN PERFORMANCE PROFESSOR Work Phone: [facility] 11-10-2023 08:03-0500 Body weight 92.99 kg Jose Anu SENIOR MARKETING ANALYST.HUMAN PERFORMANCE PROFESSOR Work Phone: [facility] 11-10-2023 08:03-0500 Diastolic blood pressure 80 mm[Hg] Jose Anu SENIOR MARKETING ANALYST.HUMAN PERFORMANCE PROFESSOR Work Phone: [facility] 11-10-2023 08:03-0500 Heart rate 80 /min Jose Anu SENIOR MARKETING ANALYST.HUMAN PERFORMANCE PROFESSOR Work Phone: [facility] 11-10-2023 08:03-0500 Respiratory rate 16 /min Jose Anu SENIOR MARKETING ANALYST.HUMAN PERFORMANCE PROFESSOR Work Phone: [facility] 11-10-2023 08:03-0500 Systolic blood pressure 120 mm[Hg] Jose Anu SENIOR MARKETING ANALYST.HUMAN PERFORMANCE PROFESSOR Work Phone: [facility] 08-01-2023 11:22-0500 Body weight 93.89 kg Jose Anu SENIOR MARKETING ANALYST.HUMAN PERFORMANCE PROFESSOR Work Phone: [facility] 08-01-2023 11:22-0500 Diastolic blood pressure 70 mm[Hg] Jose Anu SENIOR MARKETING ANALYST.HUMAN PERFORMANCE PROFESSOR Work Phone: [facility] 08-01-2023 11:22-0500 Heart rate 80 /min Jose Anu SENIOR MARKETING ANALYST.HUMAN PERFORMANCE PROFESSOR Work Phone: [facility] 08-01-2023 11:22-0500 SaO2% (BldA) [Mass fraction] 98 % Jose Anu SENIOR MARKETING ANALYST.HUMAN PERFORMANCE PROFESSOR Work Phone: [facility] 08-01-2023 11:22-0500 Systolic blood pressure 134 mm[Hg] Jose Anu SENIOR MARKETING ANALYST.HUMAN PERFORMANCE PROFESSOR Work Phone: [facility] 07-11-2023 07:17-0400 Body weight 92.08 kg Jose Anu SENIOR MARKETING ANALYST.HUMAN PERFORMANCE PROFESSOR Work Phone: [facility] 07-11-2023 07:17-0400 Diastolic blood pressure 64 mm[Hg] Jose Anu SENIOR MARKETING ANALYST.HUMAN PERFORMANCE PROFESSOR Work Phone: [facility] 07-11-2023 07:17-0400 Heart rate 69 /min Jose Anu SENIOR MARKETING ANALYST.HUMAN PERFORMANCE PROFESSOR Work Phone: [facility] 07-11-2023 07:17-0400 SaO2% (BldA) [Mass fraction] 97 % Jose Anu SENIOR MARKETING ANALYST.HUMAN PERFORMANCE PROFESSOR Work Phone: [facility] 07-11-2023 07:17-0400 Systolic blood pressure 128 mm[Hg] Jose Anu SENIOR MARKETING ANALYST.HUMAN PERFORMANCE PROFESSOR Work Phone: [facility] 04-14-2023 07:21-0400 Body weight 93.89 kg Jose Anu SENIOR MARKETING ANALYST.HUMAN PERFORMANCE PROFESSOR Work Phone: [facility] 04-14-2023 07:21-0400 Diastolic blood pressure 76 mm[Hg] Jose Anu SENIOR MARKETING ANALYST.HUMAN PERFORMANCE PROFESSOR Work Phone: [facility] 04-14-2023 07:21-0400 Heart rate 76 /min Jose Anu SENIOR MARKETING ANALYST.HUMAN PERFORMANCE PROFESSOR Work Phone: [facility] 04-14-2023 07:21-0400 Respiratory rate 16 /min Jose Anu SENIOR MARKETING ANALYST.HUMAN PERFORMANCE PROFESSOR Work Phone: [facility] 04-14-2023 07:21-0400 SaO2% (BldA) [Mass fraction] 100 % Jose Anu SENIOR MARKETING ANALYST.HUMAN PERFORMANCE PROFESSOR Work Phone: [facility] 04-14-2023 07:21-0400 Systolic blood pressure 140 mm[Hg] Jose Anu SENIOR MARKETING ANALYST.HUMAN PERFORMANCE PROFESSOR Work Phone: [facility] 01-10-2023 10:04-0400 Body height 174.6 cm Jose Anu SENIOR MARKETING ANALYST.HUMAN PERFORMANCE PROFESSOR Work Phone: [facility] 01-10-2023 10:04-0400 Body weight 95.21 kg Jose Anu SENIOR MARKETING ANALYST.HUMAN PERFORMANCE PROFESSOR Work Phone: [facility] 01-10-2023 10:04-0400 Diastolic blood pressure 70 mm[Hg] Jose Anu SENIOR MARKETING ANALYST.HUMAN PERFORMANCE PROFESSOR Work Phone: [facility] 01-10-2023 10:04-0400 Heart rate 71 /min Jose Brennan APRN.HUMAN PERFORMANCE PROFESSOR Work Phone: [facility] 01-10-2023 10:04-0400 SaO2% (BldA) [Mass fraction] 98 % Jose Brennan SENIOR MARKETING ANALYST.HUMAN PERFORMANCE PROFESSOR Work Phone: [facility] 01-10-2023 10:04-0400 Systolic blood pressure 136 mm[Hg] Jose Brennan APRN.HUMAN PERFORMANCE PROFESSOR Work Phone: [facility] Encounters Encounter Date Encounter Type Care Provider Facility Start: 03-07-2025 End: 03-07-2025 Patient encounter procedure Blair Vides Ivelisse RT(R) Nuclear Medicine Start: 03-07-2025 End: 03-07-2025 ambulatory Blair E Ivelisse RT(R) Nuclear Medicine Comment on above: Radiology [place] Start: 03-07-2025 End: 03-07-2025 Subsequent hospital visit by physician [facility] Work Phone: Nuclear Medicine Comment on above: Malignant neoplasm o f unspecified part of unspecified bronchus or lung (HCC) [C34.90] Start: 03-01-2025 End: 03-01-2025 Refill Karon Conte Work Phone: Hematology/Oncology Comment on above: Refill Request Start: 02-28-2025 End: 02-28-2025 Patient encounter procedure Jose Brennan APRN.HUMAN PERFORMANCE PROFESSOR Work Phone: [facility] Comment on above: Chronic right-sided thoracic back pain (Primary Dx); Insomnia due to medical condition; Chronic nonintractable headache, unspecified headache type; Primary hypertension; Malignant neoplasm of lung, unspecified laterality, unspecified part of lung (HCC); Cancer, metastatic to bone (HCC); Malignant neoplasm of prostate (HCC); Situational mixed anxiety and depressive disorder Start: 02-28-2025 End: 02-28-2025 ambulatory JOSE BRENNAN Facility:[facility] Start: 02-22-2025 End: 03-04-2025 Telephone encounter Marcia CUELLO Hematology/Oncology Comment on above: Social Work Services ; PET Scan Coverage Social Work Services ; Scheduling Request Start: 02-04-2025 End: 02-09-2025 Telephone encounter Jose Brennan APRN.HUMAN PERFORMANCE PROFESSOR Work Phone: [facility] Comment on above: supplies returned Start: 01-17-2025 [facility] Facility:[facility] Start: 01-17-2025 End: 01-17-2025 Subsequent hospital visit by physician Anthony [facility] Work Phone: Radiology Comment on above: Cancer, metastatic t o bone (HCC) [C79.51] Start: 01-17-2025 End: 01-17-2025 Patient encounter procedure Jose Contrerasr SENIOR MARKETING ANALYST.HUMAN PERFORMANCE PROFESSOR Work Phone: [facility] Comment on above: Insomnia due to medi anne condition (Primary Dx); Malignant neoplasm of lung, unspecified laterality, unspecified part of lung (HCC); Cancer, metastatic to bone (HCC); Situational mixed anxiety and depressive disorder; Primary hypertension; Chronic right-sided thoracic back pain; 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); Constipation, unspecified constipation type Start: 01-17-2025 End: 01-17-2025 [facility] Facility:[facility] Start: 11-19-2024 End: 01-19-2025 Follow-up encounter Jose Brennan APRN.HUMAN PERFORMANCE PROFESSOR Work Phone: [facility] Comment on above: Results Start: 11-16-2024 End: 11-16-2024 Telephone encounter Marcia CUELLO Hematology/Oncology Comment on above: Social Work Services Start: 11-16-2024 End: 11-16-2024 Subsequent hospital visit by physician Anthony [facility] Work Phone: Radiology Comment on above: Subacute cough [R05. 2] Start: 11-16-2024 End: 11-16-2024 [facility] Facility:[facility] Start: 11-16-2024 End: 11-16-2024 Patient encounter procedure Jose Contrerasr SENIOR MARKETING ANALYST.HUMAN PERFORMANCE PROFESSOR Work Phone: [facility] Comment on above: Sinobronchitis (Prim wiley Dx); Subacute cough; Malignant neoplasm of lung, unspecified laterality, unspecified part of lung (HCC); Secondary malignant neoplasm of bone (HCC); Situational mixed anxiety and depressive disorder; Acute right-sided thoracic back pain Start: 11-12-2024 End: 11-15-2024 Telephone encounter Brittani Aguila RN Work Phone: Hematology/Oncology Comment on above: Care Coordination (C hange in Treatment) Start: 11-11-2024 End: 11-11-2024 Patient encounter procedure Roger Dorsey MD Work Phone: Hematology/Oncology Start: 11-11-2024 End: 11-11-2024 ambulatory Roger Dorsey MD Work Phone: Hematology/Oncology Comment on above: Lung cancer metastat ic to bone (HCC) (Primary Dx) Start: 11-08-2024 ambulatory ROGER Molina ity:[facility] Start: 11-08-2024 End: 11-08-2024 Subsequent hospital visit by physician Injection [facility] [place] [facility] Comment on above: 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] Start: 11-04-2024 End: 11-08-2024 Refill Reji Maldonado MD Work Phone: [facility] Comment on above: Refill Request 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) Start: 11-03-2024 End: 11-03-2024 Patient encounter procedure Roger Dorsey MD Work Phone: Hematology/Oncology Start: 11-03-2024 End: 11-03-2024 ambulatory Roger Dorsey MD Work Phone: Hematology/Oncology Comment on above: 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) Start: 10-21-2024 End: 10-21-2024 Telephone encounter Roger Dorsey MD Work Phone: Hematology/Oncology Comment on above: Care Coordination (C old symptoms) Start: 10-14-2024 End: 10-14-2024 ambulatory Treatment Rm 4 [facility] Work Phone: Hematology/Oncology Comment on above: 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) Start: 10-07-2024 End: 10-07-2024 ambulatory Treatment Rm 8 [facility] Work Phone: Hematology/Oncology Comment on above: 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) Start: 10-06-2024 End: 10-06-2024 Patient encounter procedure Roger Dorsey MD Work Phone: Hematology/Oncology Start: 10-06-2024 End: 10-07-2024 ambulatory Roger Dorsey MD Work Phone: Hematology/Oncology Comment on above: 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); 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) Refill Request Start: 09-23-2024 End: 09-28-2024 Telephone encounter Roger Dorsey MD Work Phone: Hematology/Oncology Comment on above: Medication Problem Start: 09-23-2024 End: 09-23-2024 ambulatory Treatment Rm 8 [facility] Work Phone: Hematology/Oncology Comment on above: 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) Start: 09-16-2024 End: 09-16-2024 ambulatory Treatment Rm 3 Adi [facility] Work Phone: Hematology/Oncology Comment on above: 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) Start: 09-09-2024 End: 09-13-2024 Telephone encounter Marcia CUELLO Hematology/Oncology Start: 09-09-2024 End: 09-09-2024 Patient encounter procedure Karon Conte Work Phone: Hematology/Oncology Start: 09-09-2024 End: 09-09-2024 ambulatory Treatment Rm 3 Adi [facility] Work Phone: Hematology/Oncology Comment on above: 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) Lung cancer metastat ic to bone (HCC) (Primary Dx); Malignant neoplasm of unspecified part of unspecified bronchus or lung (HCC); Hx of malignant neoplasm of prostate Start: 08-26-2024 End: 08-26-2024 ambulatory Treatment Rm 2 Adi [facility] Work Phone: Hematology/Oncology Comment on above: 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) Start: 08-19-2024 End: 08-19-2024 ambulatory Treatment Rm 4 Adi [facility] Work Phone: Hematology/Oncology Comment on above: 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) Start: 08-16-2024 End: 08-16-2024 Refill Jose Brennan APRN.HUMAN PERFORMANCE PROFESSOR Work Phone: [facility] [place] Comment on above: Refill Request Start: 08-13-2024 End: 08-13-2024 Telephone encounter Brittani Aguila RN Work Phone: Hematology/Oncology Comment on above: Care Coordination (C YCLE 1/DAY 1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 [facility] Start: 04-11-2025 End: 04-11-2025 Patient encounter procedure 04/11/2025 10:40 AM EDT Office Visit [facility] [address] [place] [address] Jose Brennan APRN.HUMAN PERFORMANCE PROFESSOR [address] [place] [address] 6 week follow up [facility] Comment on above: 6 week follow up Start: 03-15-2025 Annual PCP Team Chronic Disease Visit Annual PCP Team Chronic Disease Visit [facility] Start: 03-15-2025 BP Controlled (<130/80) BP Controlled (<130/80) [facility] Start: 03-14-2025 End: 03-14-2025 ambulatory 03/14/2025 9:30 AM EDT Visit (SP) Office Hematology/Oncology [address] [place] [address] Roger Dorsey MD [address] [place] [address] OV/PET SCAN 03/07* Hematology/Oncology Comment on above: OV/PET SCAN 03/07* Start: 03-07-2025 End: 03-07-2025 Patient encounter procedure Nuclear Medicine Comment on above: Dx: Malignant neoplasm of unspecified pa rt of unspecified bronchus or lung (HCC) [C34.90] Start: 03-02-2025 End: 03-02-2025 Patient encounter procedure 03/02/2025 2:00 PM EDT Visit (SP) Office Hematology/Oncology [address] [place] [address] Roger Dorsey MD [address] [place] [address] OV-PET SCAN 02/21/SC REFERRAL* Hematology/Oncology Comment on above: OV-PET SCAN 02/21/SC REFERRAL* Start: 02-28-2025 End: 02-28-2025 Patient encounter procedure 02/28/2025 10:40 AM EDT Office Visit [facility] [address] [place], [place] [id number] Jose Brennan APRN.HUMAN PERFORMANCE PROFESSOR [address] [place] [address] 6 week follow up [facility] Comment on above: 6 week follow up Start: 02-21-2025 End: 02-21-2025 Patient encounter procedure Mobile PET CT Comment on above: NM PET/CT SKULL-THIGH SUBSEQUENT Maligna nt neoplasm of unspecified part of unspecified bronchus or lung (HCC) [C3... Start: 02-02-2025 End: 02-02-2025 ambulatory 02/02/2025 2:20 PM EDT Visit (SP) Office Hematology/Oncology [address] [place] [place] [address] [place] [address] [place] [address] OV-PET Scan 01/24* Hematology/Oncology Comment on above: OV-PET Scan 01/24* Start: 02-02-2025 End: 02-02-2025 Patient encounter procedure 02/02/2025 2:20 PM EDT Visit (SP) Office Hematology/Oncology [address] [place] [address] Roger Dorsey MD [address], [place] [id number] OV-PET Scan 01/24/VA REFERRAL* Hematology/Oncology Comment on above: OV-PET Scan 01/24/VA REFERRAL* Start: 01-24-2025 End: 01-24-2025 Patient encounter procedure Mobile PET CT Comment on above: Malignant neoplasm of unspecified part o f unspecified bronchus or lung (HCC) [C34.90] Start: 01-17-2025 End: 01-17-2025 Patient encounter procedure [facility] Comment on above: 6 month follow up Start: 01-05-2025 Annual PCP Team Chronic Disease Visit Annual PCP Team Chronic Disease Visit [facility] Start: 12-11-2024 BP Controlled (<130/80) BP Controlled (<130/80) [facility] Start: 11-24-2024 Annual PCP Team Chronic Disease Visit Annual PCP Team Chronic Disease Visit [facility] Start: 11-18-2024 End: 11-18-2024 ambulatory [facility] Comment on above: CBC* CBC/D15 ABRAXANE/VA AUTH EXP 11/18/24* (SO)CBC* (SO)CBC/D15 ABRAXANE /VA AUTH EXP 11/18/24* CHAIRSIDE OV/LAB EAR LY/CHEMO TODAY/PET SCAN 11/08* Start: 11-16-2024 End: 11-16-2024 Patient encounter procedure 11/16/2024 11:00 AM EDT Office Visit [facility] [address] [place] [address] Jose Brennan APRN.HUMAN PERFORMANCE PROFESSOR [address] [place] [address] cold and flu [facility] Comment on above: cold and flu Start: 11-11-2024 BP Controlled (<130/80) BP Controlled (<130/80) [facility] Start: 11-11-2024 End: 11-11-2024 ambulatory [facility] Comment on above: CBC* submit new request f or VA services - CBC/D8 ABRAXANE/VA AUTH EXP 11/18/24* (SO)CBC* submit new request f or VA services-(SO)CBC/D8 ABRAXANE/VA AUTH EXP 11/18/24* (SO)CBC/D8 ABRAXANE/ VA AUTH EXP 11/18/24* Start: 11-09-2024 Annual PCP Team Chronic Disease Visit Annual PCP Team Chronic Disease Visit [facility] Start: 11-09-2024 BP Controlled (<130/80) BP Controlled (<130/80) [facility] Start: 11-08-2024 End: 11-08-2024 Patient encounter procedure Mobile PET CT Comment on above: Procedure: NM PET/CT SKULL-THIGH SUBSEQU ENT Start: 11-04-2024 End: 11-04-2024 ambulatory 11/04/2024 2:00 PM [facility] Hematology/Oncology [address] [place] [address] QMO ABRAXANE/LAB & OV 11/03/VA AUTH EXP 11/18/24* Hematology/Oncology Comment on above: QMO ABRAXANE/LAB & OV 11/03/VA AUTH EXP * Start: 11-03-2024 End: 11-03-2024 ambulatory [facility] Comment on above: CBC/CMPS(S)* OV/LABS EARLY/CHEMO 11/04 (VA)* ABRAMOVICH (SO)CBC/CMP(S)* OV/LABS EARLY/CHEMO 11/04 (VA)PET SCAN 10/25* KBAMOVICH Start: 10-25-2024 End: 10-25-2024 Patient encounter procedure Mobile PET CT Comment on above: 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]; 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, C79.51] Start: 10-21-2024 End: 10-21-2024 ambulatory [facility] Comment on above: CBC* CBC/D15 ABRAXANE/VA AUTH EXP 11/18/24* (SO)CBC* (SO)CBC/D15 ABRAXANE /VA AUTH EXP 11/18/24* submit new request f or VA services(SO)CBC/D15 ABRAXANE/VA AUTH EXP 11/18/24* Start: 10-14-2024 End: 10-14-2024 ambulatory [facility] Comment on above: CBC* CBC/D8 ABRAXANE/VA A [facility] EXP 11/18/24* (SO)CBC* (SO)CBC/D8 ABRAXANE/ VA AUTH EXP 11/18/24* Start: 10-07-2024 End: 10-07-2024 ambulatory 10/07/2024 1:30 PM [facility] Hematology/Oncology [address] [place] [address] QMO ABRAXANE/LAB & OV 10/06/VA AUTH EXP 11/18/24* Hematology/Oncology Comment on above: QMO ABRAXANE/LAB & OV 10/06/VA AUTH EXP * Start: 10-06-2024 End: 10-06-2024 ambulatory [facility] Comment on above: CBC/CMPS(S)* OV/LABS EARLY/CHEMO 10/07 (VA)* ABRAMOVICH (SO)CBC/CMP(S)* Start: 09-23-2024 End: 09-23-2024 ambulatory [facility] Comment on above: CBC* CBC/D15 ABRAXANE/VA AUTH EXP 11/18/24* (SO)CBC* (SO)CBC/D15 ABRAXANE /VA AUTH EXP 11/18/24* Start: 09-16-2024 End: 09-16-2024 ambulatory [facility] Comment on above: CBC* CBC/D8 ABRAXANE/VA A [facility] EXP 11/18/24* (SO)CBC* (SO)CBC/D8 ABRAXANE/ [facility] AUTH EXP 11/18/24* Start: 09-09-2024 End: 09-09-2024 ambulatory [facility] Comment on above: CBC/CMPS(S)* OV/LABS EARLY/CHEMO TODAY* ABRAMOVICH in after OV - QMO AB RAXANE/LAB & OV EARLY/VA AUTH EXP 11/18/24* (SO)CBC/CMP(S)* Start: 09-08-2024 Medicare Advantage Annual Wellness Visit Medicare Advantage Annual Wellness Visit [facility] Start: 08-26-2024 End: 08-26-2024 ambulatory [facility] Comment on above: CBC* CBC/D15 ABRAXANE/VA AUTH EXP 11/18/24* (SO)CBC* (SO)CBC/D15 ABRAXANE /VA AUTH EXP 11/18/24* Start: 08-19-2024 End: 08-19-2024 ambulatory [facility] Comment on above: CBC* CBC/D8 ABRAXANE/VA A UTH EXP 11/18/24* Start: 08-12-2024 End: 08-12-2024 ambulatory [facility] Comment on above: CBC/CMPS(S)* CBC/CMP(S)/START QMO ABRAXANE/VA AUTH EXP 11/18/24* (SO)CBC/CMPS(S)* (SO)CBC/CMP(S)/START QMO ABRAXANE/VA AUTH?? Start: 08-11-2024 End: 08-11-2024 ambulatory 08/11/2024 10:30 AM EST Infusion Center Hematology/Oncology [address] [place] [address] Wstr, Fan Mail Editor [facility] [address] [place] [address] CHEMO ED - ABRAXANE* Hematology/Oncology Comment on above: CHEMO ED - ABRAXANE* Start: 08-06-2024 End: 08-06-2024 ambulatory 08/06/2024 11:30 AM EST Visit (SP) Office Hematology/Oncology [address] [place] [address] [place] [address] [place] [address] OV* Hematology/Oncology Comment on above: OV* Start: 08-02-2024 End: 08-02-2024 ambulatory 08/02/2024 9:00 AM EST Infusion Center Hematology/Oncology [address] [place] [address] Q2WK IMFINZI/LAB & OV 07/30/ AUTH EXP 11/18/24* OV EVERY OTHER CYCLE Hematology/Oncology Comment on above: Q2WK IMFINZI/LAB & OV 07/30/ AUTH EXP * OV EVERY OTHER CYCLE Start: 08-01-2024 Annual PCP Team Chronic Disease Visit Annual PCP Team Chronic Disease Visit [facility] Start: 07-30-2024 End: 07-30-2024 ambulatory [facility] Comment on above: (SO)CBC/CMP(S)/TSH/CORTISOL* OV/LABS EARLY/CHEMO 08/02* Start: 07-26-2024 End: 07-26-2024 ambulatory 07/26/2024 2:00 PM EST [facility] Hematology/Oncology [address] [place] [address] Q2WK IMFINZI/LAB & OV AUTH EXP 11/18/24* OV EVERY OTHER CYCLE Hematology/Oncology Comment on above: Q2WK IMFINZI/LAB & OV 07/23/ AUTH EXP * OV EVERY OTHER CYCLE Start: 07-23-2024 End: 07-23-2024 ambulatory [facility] Comment on above: (SO)CBC/CMP(S)/TSH/CORTISOL* OV/LABS EARLY/CHEMO 07/26* Start: 07-19-2024 End: 07-19-2024 ambulatory [facility] Comment on above: (SO)CBC/CMP(S)/TSH/CORTISOL* Q2WK IMFINZI/LAB EAR LYAUTH EXP 11/18/24* OV EVERY OTHER CYCLE Start: 07-19-2024 End: 07-19-2024 Patient encounter procedure 07/19/2024 8:00 AM EST Office Visit [facility] [address] [place] [address] Jose Brennan APRN.HUMAN PERFORMANCE PROFESSOR [address] [place] [address] 4 month follow up [facility] Comment on above: 4 month follow up Start: 07-12-2024 End: 07-12-2024 [facility]ulatory [facility] Comment on above: (SO)CBC/CMP(S)/TSH/CORTISOL* Q2WK IMFINZI/LAB EAR LYAUTH EXP 11/18/24* OV EVERY OTHER CYCLE Start: 07-11-2024 Annual PCP Team Chronic Disease Visit Annual PCP Team Chronic Disease Visit [facility] Start: 07-11-2024 BP Controlled (<130/80) BP Controlled (<130/80) [facility] in Start: 07-05-2024 End: 07-05-2024 ambulatory 07/05/2024 2:30 PM EDT Infusion Center Hematology/Oncology [address] [place] [address] Q2WK IMFINZI/LAB & OV 07/02/ AUTH EXP 11/18/24* OV EVERY OTHER CYCLE Hematology/Oncology Comment on above: Q2WK IMFINZI/LAB & OV 07/02/ AUTH EXP * OV EVERY OTHER CYCLE Start: 07-02-2024 End: 07-02-2024 ambulatory [facility] Comment on above: (SO)CBC/CMP(S)/TSH/CORTISOL* OV/LABS EARLY/CHEMO 07/05* Start: 06-28-2024 End: 06-28-2024 ambulatory 06/28/2024 2:00 PM EDT Infusion Center Hematology/Oncology [address] [place] [address] Q2WK IMFINZI/LAB & OV 06/25/ AUTH EXP 11/18/24* OV EVERY OTHER CYCLE Hematology/Oncology Comment on above: Q2WK IMFINZI/LAB & OV 06/25/ AUTH EXP * OV EVERY OTHER CYCLE Start: 06-25-2024 End: 06-25-2024 ambulatory [facility] Comment on above: (SO)CBC/CMP(S)/TSH/CORTISOL* OV/LABS EARLY/CHEMO 06/28* Start: 06-24-2024 End: 06-24-2024 ambulatory 06/24/2024 9:00 AM EDT [facility] [address] [place] [address] Vimal Stoner MD [address] [place] [address] 3 MO OV* Radiation Oncology Comment on above: 3 MO OV* Start: 06-23-2024 End: 06-23-2024 Patient encounter procedure 06/23/2024 9:00 AM EDT Office Visit Radiation Oncology [address] [place] [address] Vimal Stoner MD [address] [place] [address] 3 MO OV* Radiation Oncology Comment on above: 3 MO OV* Start: 06-23-2024 End: 06-23-2024 ambulatory Radiation Oncology Comment on above: 3 MO OV* OV/BX 06/09* OV/LABS EARLY/CHEMO 07/05* Start: 06-21-2024 End: 06-21-2024 ambulatory [facility] Comment on above: (SO)CBC/CMP(S)/TSH/CORTISOL* Q2WK IMFINZI/LAB EAR LYAUTH EXP 11/18/24* OV EVERY OTHER CYCLE Start: 06-18-2024 End: 06-18-2024 Follow-up encounter 06/18/2024 9:10 AM EDT Visit (SP) Office Hematology/Oncology [address] [place] [address] [place] [address] [place] [address] OV/BX 06/09/ED FOLLOW UP* Hematology/Oncology Comment on above: OV/BX 06/09/ED FOLLOW UP* Start: 06-14-2024 End: 06-14-2024 ambulatory [facility] Comment on above: (SO)CBC/CMP(S)/TSH/CORTISOL* Q2WK IMFINZI/LAB EAR LYAUTH EXP 11/18/24* OV EVERY OTHER CYCLE Start: 06-09-2024 End: 06-09-2024 Admission to same day surgery center 06/09/2024 12:00 PM EDT - 06/09/2024 1:00 PM EDT Surgery [facility] [address] [place] [address] Danyelle Singh MD, [id number] [place] [id number] BONE BIOPSY [facility] Comment on above: BONE BIOPSY Start: 06-09-2024 End: 06-09-2024 Biopsy bone trocar/needle deep BIOPSY BONE FEMUR W/ TROCAR DEEP Neoplasm of bone 06/09/2024 12:00 PM EDT [facility] Start: 06-09-2024 Subsequent hospital visit by physician 06/09/2024 12:00 PM EDT Hospital Encounter [facility] [address] [place] [address] Danyelle Singh MD, [id number] [place] [id number] Neoplasm of bone [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] [facility] Comment on above: Neoplasm of bone [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] Start: 06-07-2024 End: 06-07-2024 ambulatory [facility] Laboratory Comment on above: LAB* Q2WK IMFINZI/LAB EAR LY/ AUTH EXP 11/18/24* OV EVERY OTHER CYCLE Start: 06-04-2024 End: 09-03-2024 Prostate specific Ag [Mass/volume] in Serum or Plasma PROSTATE-SPECIFIC ANTIGEN DIAGNOSTIC Lab Routine 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) Malignant neoplasm of prostate (HCC) Expected: 06/04/2024, Expires: 09/03/2024 [facility] Work Phone: Comment on above: Expected: 06/04/2024, Expires: Start: 06-04-2024 End: 06-04-2024 ambulatory 06/04/2024 9:00 AM EDT Visit (SP) Office Hematology/Oncology [address] [place] [id number] Karon Conte [address] [place] [address] OV/PET 06/30* Hematology/Oncology Comment on above: OV/PET 06/30* Start: 05-31-2024 End: 05-31-2024 ambulatory 05/31/2024 2:30 PM EDT Infusion Center Hematology/Oncology [address] [place] [address] Q2WK IMFINZI/LAB & OV EXP 11/18/24* OV EVERY OTHER CYCLE Hematology/Oncology Comment on above: Q2WK IMFINZI/LAB & OV EXP 11/06 11/30* OV EVERY OTHER CYCLE Start: 05-31-2024 End: 05-31-2024 Patient encounter procedure Mobile PET CT Comment on above: NM PET/CT SKULL-THIGH SUBSEQUENT Start: 05-27-2024 End: 05-27-2024 ambulatory [facility] Comment on above: CBC/CMP/TSH/CORTISOL* OV/LABS EARLY/CHEMO 05/31* (SO)CBC/CMP(S)/TSH/C ORTISOL* Start: 05-17-2024 End: 05-17-2024 ambulatory [facility] Comment on above: CBC/CMP/TSH/CORTISOL* Q2WK IMFINZI/LAB EAR LYAUTH EXP 11/18/24* OV EVERY OTHER CYCLE (SO)CBC/CMP(S)/TSH/C ORTISOL* Start: 05-09-2024 Covid-19 Vaccine () Covid-19 Vaccine () [facility] Start: 05-09-2024 Covid-19 Vaccine ( season) Covid-19 Vaccine () [facility] Start: 05-09-2024 Influenza vaccination Influenza Vaccine (#1) [facility] Start: 05-03-2024 End: 05-03-2024 ambulatory 05/03/2024 1:30 PM EDT Infusion Center Hematology/Oncology [address] [place] [address] Q2WK IMFINZI/LAB & OV 04/30/ AUTH EXP 11/18/24* OV EVERY OTHER CYCLE Hematology/Oncology Comment on above: Q2WK IMFINZI/LAB & OV 04/30/ AUTH EXP 11/06 11/30* OV EVERY OTHER CYCLE Start: 04-30-2024 End: 04-30-2024 ambulatory [facility] Comment on above: CBC/CMP/TSH/CORTISOL* OV/LABS EARLY/CHEMO* (SO)CBC/CMP(S)/TSH/C ORTISOL* Start: 04-29-2024 COVID-19 Vaccine ( formulation) COVID-19 Vaccine ( formulation) [facility] Start: 04-19-2024 End: 04-19-2024 ambulatory [facility] Comment on above: CBC/CMP/TSH/CORTISOL* Q2WK IMFINZI/LAB EAR LYAUTH EXP 11/18/24* OV EVERY OTHER CYCLE (SO)CBC/CMP(S)/TSH/C ORTISOL* Start: 04-05-2024 End: 04-05-2024 ambulatory 04/05/2024 2:30 PM EDT [facility] Hematology/Oncology [address], [place] [address] Q2WK IMFINZI/LAB & OV 04/02 AUTH EXP 11/18/24* OV EVERY OTHER CYCLE Hematology/Oncology Comment on above: Q2WK IMFINZI/LAB & OV 04/02 AUTH EXP 11/18* OV EVERY OTHER CYCLE Start: 04-02-2024 End: 04-02-2024 ambulatory [facility] Comment on above: CBC/CMP/TSH/CORTISOL* (SO)CBC/CMP(S)/TSH/C ORTISOL* Start: 04-02-2024 End: 04-02-2024 ambulatory [facility] Comment on above: CBC/CMP/TSH/CORTISOL* OV/LABS EARLY/CHEMO 04/05* OV/LABS EARLY/CHEMO 04/05* enzo Start: 03-24-2024 End: 03-24-2024 ambulatory 03/24/2024 1:40 PM EDT Visit (SP) Office Hematology/Oncology [address] [place] [address] [place] [address] [place] [address] OV/CT* Hematology/Oncology Comment on above: OV/CT* Start: 03-24-2024 End: 03-24-2024 Follow-up encounter 03/24/2024 9:00 AM EDT [facility] [address] [place], [place] [address] Vimal Stoner MD [address] [place] [id number] 4 WK FOLLOW UP* Radiation Oncology Comment on above: 4 WK FOLLOW UP* Start: 03-22-2024 End: 03-22-2024 ambulatory [facility] Comment on above: LABS* CBC/CMP/TSH/CORTISOL /START Q2WK IMFINZI/ AUTH EXP 11/18/24* OV EVERY OTHER CYCLE (SO)CBC/CMP(S)/TSH/C ORTISOL/START Q2WK IMFINZI/ AUTH EXP 11/18/24* OV EVERY OTHER CYCLE Start: 03-19-2024 End: 03-19-2024 ambulatory 03/19/2024 10:30 AM EDT [facility] Hematology/Oncology [address] [place], [place] [phone] Wstr, Fan Mail Editor [facility] [address] [place], [place] [id number] CHEMO ED - DURVALUMAB* Hematology/Oncology Comment on above: CHEMO ED - DURVALUMAB* Start: 03-15-2024 End: 03-15-2024 Patient encounter procedure 03/15/2024 8:00 AM EDT Office Visit [facility] [address] [place], [place] [phone] Jose Brennan APRN.HUMAN PERFORMANCE PROFESSOR [address] [place], [place] [phone] 4 mo follow up [facility] Comment on above: 4 mo follow up Start: 03-10-2024 End: 03-10-2024 ambulatory Hematology/Oncology Comment on above: LVM FOR PATIENT TO CALL IN. MISAEL MAKE SAUMYA RE OF NEW APPT DAY AND TIME----- OV/CT 02/25* OV/CT 02/25* Start: 02-26-2024 End: 02-26-2024 Patient encounter procedure 02/26/2024 10:40 AM EDT Appointment Cat Scan [address] [place] [address] Malignant neoplasm of unspecified part of unspecified bronchus or lung (HCC) [C34.90] Cat Scan Comment on above: Malignant neoplasm of unspecified part o f unspecified bronchus or lung (HCC) [C34.90] Start: 02-25-2024 End: 02-25-2024 Patient encounter procedure 02/25/2024 11:00 AM EDT Appointment Radiation Oncology [address] [place] [address] Location: [facility] Comment on above: Location: [facility] Start: 02-23-2024 End: 02-23-2024 Patient encounter procedure 02/23/2024 11:00 AM EDT Appointment Rad[facility] Oncology [address] [place] [address] Location: [facility] Comment on above: Location: [facility] Start: 02-20-2024 End: 02-20-2024 Patient encounter procedure 02/20/2024 11:00 AM EDT Appointment [facility] On[facility] [address] [place] [address] Location: [facility] Comment on above: Location: [facility] Start: 02-18-2024 End: 02-18-2024 Patient encounter procedure Radiation Oncology Comment on above: Location: [facility] Location: [facility] Start: 02-16-2024 End: 02-16-2024 Patient encounter procedure Radiation Oncology Comment on above: needs scheduled needs scheduled do n ot change time today for coverage Start: 02-11-2024 End: 02-11-2024 ambulatory Hematology/Oncology Comment on above: OV/LABS TODAY/ CHEMO 01/25* OV/LABS TODAY/?START IMMUNOTHERAPY WK OF 03/08* Start: 02-04-2024 End: 02-04-2024 Follow-up encounter 02/04/2024 2:30 PM EDT [facility] [address] [place] [id number] Vimal Stoner MD [address] [place] [id number] 4 WK FOLLOW UP* Radiation Oncology Comment on above: 4 WK FOLLOW UP* Start: 01-26-2024 End: 01-26-2024 Patient encounter procedure Radiation Oncology Comment on above: Location: _[facility] wants late morning wants around 10am Start: 01-26-2024 End: 01-26-2024 ambulatory Hematology/Oncology Comment on above: Q3WK CARBO/ALIMTA/#4-4/LAB&OV 01/22/ON XR T/AUTH EXP 11/18/24* (SO)CBC/CMP(S)* (SO)CBC/CMP(S)Q3WK C ARBO/ALIMTA/#4-4/AUTH EXP 11/18/24* Start: 01-23-2024 End: 01-23-2024 ambulatory [facility] Laboratory Comment on above: (SO)CBC/CMP(S)* OV/LABS TODAY/ CHEMO 01/25* Start: 01-15-2024 End: 01-15-2024 Patient encounter procedure 01/15/2024 11:30 AM EDT Office Visit Radiation Oncology [address] [place] [id number] Vimal tSoner MD [address] [place] [id number] SBRT. compression belt. body fix. Radiation Oncology Comment on above: SBRT. compression belt. body fix. Start: 01-15-2024 End: 01-15-2024 Nursing evaluation of patient and report 01/15/2024 11:00 AM EDT Nurse Visit Radiation Oncology [address] [place] [address] Wstr, Nurse Radt [facility] [address] [place] [address] Location: [facility] Radiation Oncology Comment on above: Location: [facility] Start: 01-06-2024 End: 01-06-2024 Patient encounter procedure 01/06/2024 2:00 PM EDT Office Visit [facility] [address] [facility] [place] [address] Jose Brennan APRN.HUMAN PERFORMANCE PROFESSOR [address] [facility] [place] [address] headache recheck [facility] Comment on above: headache recheck Start: 01-05-2024 End: 04-05-2024 Chronic hepatitis differentiation between hepatitis B and C virus panel - Serum or Plasma HEP REMOTE PANEL BL Lab Routine 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 schedule sbrt sim? con chemo. Start: 01-02-2024 End: 01-02-2024 Patient encounter procedure 01/02/2024 8:45 AM EDT Appointment Radiation Oncology [address] [place] [address] con chemo Radiation Oncology Comment on above: con chemo Start: 01-01-2024 End: 01-01-2024 ambulatory [place] [facility] Laboratory Comment on above: (SO)CBC/CMP(S)* OV/LABS TODAY/ CHEMO 01/04/zofran causing ROSADO-change?* enzo Start: 01-01-2024 End: 01-01-2024 Patient encounter procedure 01/01/2024 8:45 AM EDT Appointment Radiation Oncology [address] [place] [address] con chemo Radiation Oncology Comment on above: con chemo Start: 12-31-2023 End: 12-31-2023 Patient encounter procedure 12/31/2023 8:45 AM EDT Appointment Radiation Oncology [address] [place] [address] con chemo. Give appt card Radiation Oncology Comment on above: con chemo. Give appt card Start: 11-07-2023 Welcome to Medicare Visit (G0402) Welcome to Medicare Visit (G0402) [facility] Start: 10-28-2023 End: 01-27-2024 Hemoglobin A1c in Blood HGB A1C Lab Routine Obesity, Class I, BMI 30-34.9 Expected: 10/28/2023, Expires: 01/27/2024 [facility] Work Phone: Comment on above: Expected: 10/28/2023, Expires: Start: 10-28-2023 End: 01-27-2024 Lipid 1996 panel - Serum or Plasma LIPID PANEL BASIC Lab Routine Primary hypertension Expected: 10/28/2023, Expires: 01/27/2024 [facility] Work Phone: Comment on above: Expected: 10/28/2023, Expires: Start: 09-08-2023 Behavioral Health Screening Behavioral Health Screening [facility] Start: 09-08-2023 Depression Assessment Depression Assessment [facility] Start: 08-15-2023 End: 11-14-2023 CBC W Auto Differential panel - Blood CBC + DIFF Lab Routine Encounter for therapeutic drug monitoring Brain aneurysm Malignant neoplasm of prostate (HCC) Seizure-like activity (HCC) Expected: 08/15/2023, Expires: 11/14/2023 [facility] Work Phone: Comment on above: Expected: 08/15/2023, Expires: 4 Start: 08-15-2023 End: 11-14-2023 Cobalamin (Vitamin B12) [Mass/volume] in Serum or Plasma VITAMIN B12 BLOOD Lab Routine Encounter for therapeutic drug monitoring Brain aneurysm Malignant neoplasm of prostate (HCC) Seizure-like activity (HCC) Expected: 08/15/2023, Expires: 11/14/2023 [facility] Work Phone: Comment on above: Expected: 08/15/2023, Expires: Start: 08-15-2023 End: 11-14-2023 Comprehensive metabolic 2000 panel - Serum or Plasma COMP METABOLIC PANEL Lab Routine Encounter for therapeutic drug monitoring Brain aneurysm Malignant neoplasm of prostate (HCC) Seizure-like activity (HCC) Expected: 08/15/2023, Expires: 11/14/2023 [facility] Work Phone: Comment on above: Expected: 08/15/2023, Expires: 4 Start: 08-15-2023 Covid-19 Vaccine ( season) Covid-19 Vaccine ( season) [facility] Start: 08-15-2023 End: 11-14-2023 Thyrotropin [Units/volume] in Serum or Plasma TSH BLD Lab Routine Encounter for therapeutic drug monitoring Brain aneurysm Malignant neoplasm of prostate (HCC) Seizure-like activity (HCC) Expected: 08/15/2023, Expires: 11/14/2023 [facility] Work Phone: Comment on above: Expected: 08/15/2023, Expires: 4 Start: 05-09-2023 Influenza vaccination INFLUENZA (#1) [facility] Start: 2020 Hepatitis B (HBV) Vaccine (optional start 60+ years) Hepatitis B (HBV) Vaccine (optional start 60+ years) [facility] Start: 2020 RSV Vaccine (1 - 1-dose 60+ series) RSV Vaccine (1 - 1-dose 60+ series) [facility] Start: 2015 PROSTATE CANCER SCREENING DISCUSSION PROSTATE CANCER SCREENING DISCUSSION [facility] Start: 2010 Shingles (RZV) Vaccine (1 of 2) Shingles (RZV) Vaccine (1 of 2) [facility] Start: 2005 COLOGUARD (FIT-DNA) COLOGUARD (FIT-DNA) [facility] Start: 2005 Colonoscopy COLONOSCOPY [facility] Start: 2005 COLORECTAL CANCER SCREENING COLORECTAL CANCER SCREENING [facility] Start: [address] COLONOGRAPHY [facility] Start: 2005 DIABETES SCREEN DIABETES SCREEN [facility] Start: 2005 Diabetes Screening Diabetes Screening [facility] Start: 2005 FECAL OCCULT BLOOD FECAL OCCULT BLOOD [facility] Start: 2005 Screening for malignant neoplasm of colon [facility] Start: 2005 SIGMOIDOSCOPY SIGMOIDOSCOPY [facility] Start: 1995 Lipid 1996 panel - Serum or Plasma Lipid Screening [facility] Start: 1995 LIPID SCREEN LIPID SCREEN [facility] Start: 1979 Hepatitis A (HAV) Vaccine (optional start 19+ years) Hepatitis A (HAV) Vaccine (optional start 19+ years) [facility] Start: 1979 Tetanus vaccination Tetanus (Td or Tdap) Booster [facility] Start: 1978 BP Controlled (<130/80) BP Controlled (<130/80) [facility] in Start: 1978 HEPATITIS C SCREENING HEPATITIS C SCREENING [facility] Start: 1978 Hepatitis C screening Hepatitis C Screening [facility] Start: 1978 HIV SCREENING HIV SCREENING [facility] Start: 1978 HIV screening HIV Screening [facility] Start: 1978 Tdap Booster Tdap Booster [facility] Start: 1975 HIV screening HIV Test [facility] Start: 1960 Screening for malignant neoplasm of colon Colonoscopy [facility] CBC W Auto Different ial panel - Blood CBC + DIFF Lab Routine Encounter for therapeutic drug monitoring Brain aneurysm Malignant neoplasm of prostate (HCC) Seizure-like activity (HCC) 08/01/2023 12:16 PM EST [facility] Work Phone: End: 11-18-2024 CBC W Auto Differential panel - Blood CBC + DIFF Lab STAT 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) Every 3 weeks for 6 Occurrences starting 11/19/2023 until 11/18/2024 [facility] Work Phone: Comment on above: Every 3 weeks for 6 Occurrences starting 11/19/2023 until 11/18/2024 End: 02-09-2025 CBC W Auto Differential panel - Blood COMPLETE BLOOD COUNT AND DIFFERENTIAL Lab Routine 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) Every 3 weeks for 6 Occurrences starting 02/10/2024 until 02/09/2025 [facility] Work Phone: Comment on above: Every 3 weeks for 6 Occurrences starting 02/10/2024 until 02/09/2025 End: 03-10-2025 CBC W Auto Differential panel - Blood COMPLETE BLOOD COUNT AND DIFFERENTIAL Lab Routine 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) Every other week for 26 Occurrences starting 03/10/2024 until 03/10/2025 [facility] Comment on above: Every other week for 26 Occurrences star ting 03/10/2024 until 03/10/2025 End: 08-06-2025 CBC W Auto Differential panel - Blood COMPLETE BLOOD COUNT AND DIFFERENTIAL Lab STAT 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) Once per week for 30 Occurrences starting 08/06/2024 until 08/06/2025 [facility] Work Phone: Comment on above: Once per week for 30 Occurrences startin g 08/06/2024 until 08/06/2025 Chronic hepatitis differentiation between hepatitis B and C virus panel - Serum or Plasma HEP REMOTE PANEL BL Lab Routine 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) 01/06/2024 2:12 PM EDT [facility] Cobalamin (Vitamin B 12) [Mass/volume] in Serum or Plasma VITAMIN B12 BLOOD Lab Routine Encounter for therapeutic drug monitoring Brain aneurysm Malignant neoplasm of prostate (HCC) Seizure-like activity (HCC) 08/01/2023 12:16 PM EST [facility] Work Phone: Comprehensive metabo lic 2000 panel - Serum or Plasma COMP METABOLIC PANEL Lab Routine Encounter for therapeutic drug monitoring Brain aneurysm Malignant neoplasm of prostate (HCC) Seizure-like activity (HCC) 08/01/2023 12:16 PM EST [facility] Work Phone: End: 11-18-2024 Comprehensive metabolic 2000 panel - Serum or Plasma COMP METABOLIC PANEL Lab STAT 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) Every 3 weeks for 6 Occurrences starting 11/19/2023 until 11/18/2024 [facility] Work Phone: Comment on above: Every 3 weeks for 6 Occurrences starting 11/19/2023 until 11/18/2024 End: 02-09-2025 Comprehensive metabolic 2000 panel - Serum or Plasma COMPREHENSIVE METABOLIC PANEL Lab Routine 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) Every 3 weeks for 6 Occurrences starting 02/10/2024 until 02/09/2025 [facility] Comment on above: Every 3 weeks for 6 Occurrences starting 02/10/2024 until 02/09/2025 End: 03-10-2025 Comprehensive metabolic 2000 panel - Serum or Plasma COMPREHENSIVE METABOLIC PANEL Lab Routine 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) Every other week for 26 Occurrences starting 03/10/2024 until 03/10/2025 [facility] Comment on above: Every other week for 26 Occurrences star ting 03/10/2024 until 03/10/2025 End: 08-06-2025 Comprehensive metabolic 2000 panel - Serum or Plasma COMPREHENSIVE METABOLIC PANEL Lab STAT 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) Once per month for 15 Occurrences starting 08/06/2024 until 08/06/2025 [facility] Comment on above: Once per month for 15 Occurrences starti ng 08/06/2024 until 08/06/2025 End: 03-10-2025 Cortisol [Mass/volume] in Serum or Plasma CORTISOL, SERUM Lab Routine 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) Every other week for 26 Occurrences starting 03/10/2024 until 03/10/2025 [facility] Work Phone: Comment on above: Every other week for 26 Occurrences star ting 03/10/2024 until 03/10/2025 End: 03-12-2025 CT Chest W contrast IV CT CHEST W IVCON Radiology Routine Malignant neoplasm of unspecified part of unspecified bronchus or lung (HCC) 1 Occurrences starting 02/11/2024 until 03/12/2025 [facility] Comment on above: 1 Occurrences starting 02/11/2024 until 03/12/2025 CT Chest W contrast IV CT CHEST W IVCON Radiology Routine Malignant neoplasm of unspecified part of unspecified bronchus or lung (HCC) 02/26/2024 11:15 AM EDT [facility] Work Phone: CT Guidance for radiation treatment of Unspecified body region CT SIM PLANNING RADIATION ONCOLOGY Radiology Routine 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) Ordered: 11/14/2023 [facility] Work Phone: Comment on above: Ordered: 11/14/2023 End: 08-30-2024 CTA HEAD WO/W IVCON CTA HEAD WO/W IVCON Radiology Routine Brain aneurysm Malignant neoplasm of prostate (HCC) Seizure-like activity (HCC) Nonruptured cerebral aneurysm 1 Occurrences starting 08/01/2023 until 08/30/2024 [facility] Work Phone: Comment on above: 1 Occurrences starting 08/01/2023 until 08/30/2024 End: 08-30-2024 CTA NECK W IVCON CTA NECK W IVCON Radiology Routine Brain aneurysm Malignant neoplasm of prostate (HCC) Seizure-like activity (HCC) Aneurysm of vertebral artery (HCC) 1 Occurrences starting 08/01/2023 until 08/30/2024 [facility] Work Phone: Comment on above: 1 Occurrences starting 08/01/2023 until 08/30/2024 Guidance for percutaneous biopsy of Bone IR BONE BIOPSY Radiology Routine 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) Malignant neoplasm of prostate (HCC) Malignant neoplasm of unspecified part of unspecified bronchus or lung (HCC) Ordered: 06/04/2024 [facility] Comment on above: Ordered: 06/04/2024 End: 06-13-2025 PET+CT Guidance for localization of tumor of Skull base to mid-thigh-- W 18F-FDG IV NM PET/CT SKULL-THIGH SUBSEQUENT Radiology Routine 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) 1 Occurrences starting 05/14/2024 until 06/13/2025 [facility] Work Phone: Comment on above: 1 Occurrences starting 05/14/2024 until 06/13/2025 End: 11-05-2025 PET+CT Guidance for localization of tumor of Skull base to mid-thigh-- W 18F-FDG IV NM PET/CT SKULL-THIGH SUBSEQUENT Radiology Routine 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) 1 Occurrences starting 10/06/2024 until 11/05/2025 [facility] Work Phone: Comment on above: 1 Occurrences starting 10/06/2024 until 11/05/2025 PET+CT Guidance for localization of tumor of Skull base to mid-thigh-- W 18F-FDG IV NM PET/CT SKULL-THIGH SUBSEQUENT Radiology Routine 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) 11/08/2024 12:07 PM [facility] Work Phone: End: 12-12-2025 PET+CT Guidance for localization of tumor of Skull base to mid-thigh-- W 18F-FDG IV NM PET/CT SKULL-THIGH SUBSEQUENT Radiology Routine Malignant neoplasm of unspecified part of unspecified bronchus or lung (HCC) 1 Occurrences starting 11/12/2024 until 12/12/2025 [facility] Work Phone: Comment on above: 1 Occurrences starting 11/12/2024 until 12/12/2025 Thyrotropin [Units/volume] in Serum or Plasma TSH BLD Lab Routine Encounter for therapeutic drug monitoring Brain aneurysm Malignant neoplasm of prostate (HCC) Seizure-like activity (HCC) 08/01/2023 12:16 PM [facility] Work Phone: End: 03-10-2025 Thyrotropin [Units/volume] in Serum or Plasma THYROID STIMULATING HORMONE Lab Routine 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) Every other week for 26 Occurrences starting 03/10/2024 until 03/10/2025 [facility] Comment on above: Every other week for 26 Occurrences star ting 03/10/2024 until 03/10/2025 UA DIP B/O UA DIP B/O Lab R outine Acute right-sided thoracic back pain Ordered: 05/19/2024 [facility] Work Phone: Comment on above: Ordered: 05/19/2024 End: 12-16-2025 XR Chest PA and Lateral XR CHEST 2V FRONTAL/LAT Radiology Routine Subacute cough Malignant neoplasm of lung, unspecified laterality, unspecified part of lung (HCC) Sinobronchitis 1 Occurrences starting 11/16/2024 until 12/16/2025 [facility] Work Phone: Comment on above: 1 Occurrences starting 11/16/2024 until 12/16/2025 XR Chest PA and Lateral XR CHEST 2V FRONTAL/LAT Radiology Routine Subacute cough 11/16/2024 12:11 PM EDT [facility] End: 07-18-2025 XR Femur - left AP and Lateral XR FEMUR GENERAL 2V AP/LAT LEFT Radiology Routine 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) 1 Occurrences starting 06/18/2024 until 07/18/2025 [facility] Work Phone: Comment on above: 1 Occurrences starting 06/18/2024 until 07/18/2025 XR Femur - left AP a nd Lateral XR FEMUR GENERAL 2V AP/LAT LEFT Radiology Routine 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) 06/18/2024 9:54 AM EDT [facility] End: 02-16-2026 XR Lumbar spine 3 Views XR LUMBAR GENERAL 3V AP/LAT/L5-S1 Radiology Routine Cancer, metastatic to bone (HCC) 1 Occurrences starting 01/17/2025 until 02/16/2026 [facility] Work Phone: Comment on above: 1 Occurrences starting 01/17/2025 until 02/16/2026 XR Lumbar spine 3 Views XR LUMBA R GENERAL 3V AP/LAT/L5-S1 Radiology Routine Cancer, metastatic to bone (HCC) 01/17/2025 11:25 AM EDT [facility] Immunizations Immunization Date Immunization Notes Care Provider Fa gisselle 07-19-2024 influenza, seasonal, injectable Ojse Anu SENIOR MARKETING ANALYST.HUMAN PERFORMANCE PROFESSOR Work Phone: [facility] 11-10-2023 respiratory syncytia l virus (RSV) vaccine, bivalent (ABRYSVO) Jose Anu SENIOR MARKETING ANALYST.[facility] Work Phone: [facility] 09-02-2023 pneumococcal conjuga te (PCV20) vaccine, 20 valent (PREVNAR 20) Jose Anu SENIOR MARKETING ANALYST.[facility] Work Phone: [facility] Work Phone: 06-20-2023 influenza, injectabl e, quadrivalent, preservative free Jose Anu SENIOR MARKETING ANALYST.[facility] Work Phone: [facility] Work Phone: 06-20-2023 influenza virus vacc ine, unspecified formulation Roger Dorsey MD Work Phone: [facility] 07-30-2022 COVID-19 vaccine, ag e 12+ yr, bivalent (PFIZER-BIONTECH) Jose Anu SENIOR MARKETING ANALYST.[facility] Work Phone: [facility] Work Phone: 06-14-2022 influenza, injectabl e, quadrivalent, preservative free Jose Anu SENIOR MARKETING ANALYST.[facility] Work Phone: [facility] Work Phone: 10-09-2021 pneumococcal polysaccharide vaccine, 23 valent Jose Anu SENIOR MARKETING ANALYST.[facility] Work Phone: [facility] Work Phone: 09-11-2021 COVID-19 original vaccine, age 12+ yr, monovalent (PFIZER-BIONTECH - PURPLE TOP) Jose Anu SENIOR MARKETING ANALYST.[facility] Work Phone: [facility] Work Phone: 07-05-2021 influenza, injectabl e, quadrivalent, preservative free Jose Anu SENIOR MARKETING ANALYST.[facility] Work Phone: [facility] Work Phone: 12-11-2020 COVID-19 original vaccine, age 12+ yr, monovalent (PFIZER-BIONTECH - PURPLE TOP) Ojse Anu SENIOR MARKETING ANALYST.HUMAN PERFORMANCE PROFESSOR Work Phone: [facility] Work Phone: 11-20-2020 COVID-19 original vaccine, age 12+ yr, monovalent (PFIZER-BIONTSeldom [employer] - PURPLE TOP) Jose Anu SENIOR MARKETING ANALYST.[facility] Work Phone: [facility] Work Phone: 06-28-2020 influenza, injectabl e, quadrivalent, preservative free Jose Anu SENIOR MARKETING ANALYST.[facility] Work Phone: [facility] Work Phone: 07-07-2019 zoster vaccine recombinant Jose Anu SENIOR MARKETING ANALYST.[facility] Work Phone: [facility] Work Phone: 06-02-2019 influenza nasal, unspecified formulation Jose Anu SENIOR MARKETING ANALYST.[facility] Work Phone: [facility] Work Phone: 06-02-2019 influenza virus vacc ine, unspecified formulation Jose Anu SENIOR MARKETING ANALYST.[facility] Work Phone: [facility] 04-26-2019 Influenza, injectabl e, Madin Marlen Canine Kidney, preservative free, quadrivalent Jose Anu SENIOR MARKETING ANALYST.[facility] Work Phone: [facility] Work Phone: 04-26-2019 influenza, injectabl e, quadrivalent, contains preservative Jose Anu SENIOR MARKETING ANALYST.[facility] Work Phone: [facility] Work Phone: 04-15-2019 zoster vaccine recombinant Jose Anu SENIOR MARKETING ANALYST.HUMAN PERFORMANCE PROFESSOR Work Phone: [facility] Work Phone: 05-10-2018 influenza, injectabl e, quadrivalent, preservative free Jose Anu SENIOR MARKETING ANALYST.[facility] Work Phone: [facility] Work Phone: 05-09-2018 influenza nasal, unspecified formulation Jose Anu SENIOR MARKETING ANALYST.HUMAN PERFORMANCE PROFESSOR Work Phone: [facility] Work Phone: 05-09-2018 influenza virus vacc ine, unspecified formulation Jose Anu SENIOR MARKETING ANALYST.HUMAN PERFORMANCE PROFESSOR Work Phone: [facility] 05-09-2017 influenza nasal, unspecified formulation Jose Anu SENIOR MARKETING ANALYST.HUMAN PERFORMANCE PROFESSOR Work Phone: [facility] Work Phone: 05-09-2017 influenza virus vacc ine, unspecified formulation Jose Anu SENIOR MARKETING ANALYST.HUMAN PERFORMANCE PROFESSOR Work Phone: [facility] 04-24-2017 influenza, injectabl e, quadrivalent, preservative free Jose Anu SENIOR MARKETING ANALYST.HUMAN PERFORMANCE PROFESSOR Work Phone: [facility] Work Phone: 06-29-2016 tetanus toxoid, redu diane diphtheria toxoid, and acellular pertussis vaccine, adsorbed Jose Anu SENIOR MARKETING ANALYST.[facility] Work Phone: [facility] Work Phone: 06-08-2016 tetanus toxoid, adsorbed Ros a Anu SENIOR MARKETING ANALYST.[facility] Work Phone: [facility] Work Phone: 05-09-2016 influenza virus vacc ine, unspecified formulation Jose Anu SENIOR MARKETING ANALYST.HUMAN PERFORMANCE PROFESSOR Work Phone: [facility] 05-09-2016 influenza, high dose seasonal, preservative-free Jose Anu SENIOR MARKETING ANALYST.HUMAN PERFORMANCE PROFESSOR Work Phone: [facility] Work Phone: 07-25-2015 influenza, high dose seasonal, preservative-free Jose Anu SENIOR MARKETING ANALYST.HUMAN PERFORMANCE PROFESSOR Work Phone: [facility] Work Phone: 06-27-2015 influenza nasal, unspecified formulation Jose Anu SENIOR MARKETING ANALYST.HUMAN PERFORMANCE PROFESSOR Work Phone: [facility] Work Phone: 06-27-2015 influenza virus vacc ine, unspecified formulation Jose Anu SENIOR MARKETING ANALYST.HUMAN PERFORMANCE PROFESSOR Work Phone: [facility] 06-14-2014 influenza nasal, unspecified formulation Jose Anu SENIOR MARKETING ANALYST.HUMAN PERFORMANCE PROFESSOR Work Phone: [facility] Work Phone: 06-14-2014 influenza virus vacc ine, unspecified formulation Jose Anu SENIOR MARKETING ANALYST.HUMAN PERFORMANCE PROFESSOR Work Phone: [facility] 07-09-2013 influenza nasal, unspecified formulation Jose Anu SENIOR MARKETING ANALYST.HUMAN PERFORMANCE PROFESSOR Work Phone: [facility] Work Phone: 07-09-2013 influenza virus vacc ine, unspecified formulation Jose Anu SENIOR MARKETING ANALYST.HUMAN PERFORMANCE PROFESSOR Work Phone: [facility] 10-15-2012 influenza nasal, unspecified formulation Jose Anu SENIOR MARKETING ANALYST.HUMAN PERFORMANCE PROFESSOR Work Phone: [facility] Work Phone: 10-15-2012 influenza virus vacc ine, unspecified formulation Jose Anu SENIOR MARKETING ANALYST.HUMAN PERFORMANCE PROFESSOR Work Phone: [facility] 11-09-2010 pneumococcal polysaccharide vaccine, [address] AZIZA ROBERTS MD [facility] Comment on above: Reason for Medicatio n: Other (see order comments) Payers Date Payer Category Payer Medicare (Managed Care) [employer] [place] [id number] 2024 Medicare [id number] 2024 Medicare [id number] 2022 Medicare [id number] 2019 Unknown [id number] 1998 Private Health Insurance [id number] 1998 Unknown HOSPITAL/MEDICAL GENERIC MEDICAL GENERIC [id number] 1998-Present [phone] [id number] [place] [address] Indemnity [id number] 1998 Unknown [id number] Social History Date Type Detail Facility Start: 01-10-2023 End: 05-19-2024 Ex-smoker (finding) [facility] Sex Assigned At [facility] Start: 09-08-1982 End: 09-08-2017 History of tobacco use Current smoker [facility] Work Phone: Start: 09-08-1982 End: 09-08-2017 History of tobacco use Cigarette Smoker [facility] Work Phone: Start: 01-10-2023 End: 01-16-2025 Cigarettes smoked current (pack per day) - Reported 2 [facility] Work Phone: Start: 01-10-2023 End: 05-19-2024 Tobacco use and exposure Smokeless tobacco non-user [facility] Work Phone: Start: 01-10-2023 End: 02-28-2025 Alcohol intake Current non-drinker of alcohol (finding) [facility] Start: 01-10-2023 Tobacco Comment Wants to quit. Tried quitting on several occasions. [facility] Start: 07-07-2014 Alcohol Comment occasional den ies use 06/2014 [facility] Start: 1960 Sex Assigned At Not on file C [facility] Start: 01-10-2023 End: 04-14-2023 Tobacco use panel [facility] Work Phone: Adult Depression Screening Assessment 0 [facility] Work Phone: Tobacco smoking stat us IDIS Tobacco smoking consumption unknown [facility] Has the [employer] threatened to shut off services in your home in past 12Mo No [facility] Are you now , , , , never or living with a partner? [facility] How often to you hav e a drink containing alcohol? Never [facility] How hard is it for y ou to pay for the very basics like food, housing, medical care, and heating Somewhat hard [facility] (I/We) worried wheth er (my/our) food would run out before (I/we) got money to buy more. Never true [facility] Functional Status Date Assessment Result Facility 01-16-2025 Total score [AUDIT-C] 0 01/17/20 7:49 AM EDT User, Evelin [facility] 01-16-2025 Within the last year , have you been humiliated or emotionally abused in other ways by your partner or ex-partner? No 01/16/2025 7:49 AM EDT UserEvelin No [facility] 01-16-2025 Within the last year , have you been afraid of your partner or ex-partner? No 01/16/2025 7:49 AM EDT User, Evelin No [facility] 01-16-2025 Within the last year , have you been raped or forced to have any kind of sexual activity by your partner or ex-partner? No 01/16/2025 7:49 AM EDT User, Evelin No [facility] 01-16-2025 Within the last year , have you been kicked, hit, slapped, or otherwise physically hurt by your partner or ex-partner? No 01/16/2025 7:49 AM EDT User, [email or web address] No [facility] 01-16-2025 How often to you hav e a drink containing alcohol? Never 01/16/2025 7:49 AM EDT UserEvelin Never [facility] 01-16-2025 Functional status Patient does n ot drink 01/16/2025 7:49 AM EDT UserEvelin Patient does not drink [facility] 01-16-2025 How often do you hav e 6 or more drinks on 1 occasion? Never 01/16/2025 7:49 AM EDT UserEvelin Never [facility] 06-20-2014 Are you deaf, or do you have serious difficulty hearing No 06/20/2014 2:30 PM EDT Adele Pitts LPN No [facility] 06-20-2014 Are you blind, or do you have serious difficulty seeing, even when wearing glasses No 06/20/2014 2:30 PM EDT Adele Pitts LPN No [facility] 06-20-2014 Do you have serious difficulty walking or climbing stairs No 06/20/2014 2:30 PM EDT Adele Pitts LPN No [facility] 06-20-2014 Do you have difficul ty dressing or bathing No 06/20/2014 2:30 PM EDT Adele Pitts LPN No [facility] 06-20-2014 Because of a physica l, mental, or emotional condition, do you have difficulty doing errands alone such as visiting a physician's office or shopping No 06/20/2014 2:30 PM EDT Adele Pitts LPN No [facility] Mental Status Date Assessment Result Facility 06-20-2014 Because of a physica l, mental, or emotional condition, do you have serious difficulty concentrating, remembering, or making decisions No 06/20/2014 2:30 PM EDT Adele Pitts LPN No [facility] Clinical Notes 12-05-2014 to 03-07-2025 Telephone Encounter - Naty Iqbal - 03/04/2025 2:36 PM EDTTelephone Encounter - Naty Iqbal - 03/04/2025 2:36 PM EDTTelephone Encounter - Makayla Mann LPN - 03/04/2025 1:40 PM EDT Note Date & Type Note Facility 03-07-2025 Note HNO ID: [id number] Author: BLAIR MICHAEL RT(Maira) Service: ? Author Type: Technologist Type: Progress Notes Filed: 03/07/2025 08:20 Note Text: RADIOLOGY SERVICE PROGRESS NOTE SERVICE DATE: 03/07/2025 SERVICE TIME: 8:19 AM PATIENT IDENTITY VERIFICATION COMPLETED USING TWO (2) STANDARD IDENTIFIERS: Name and Date of confirmed by patient verbally and Name and Date of confirmed by identification band FALL SCREENING: Has the patient had 2 falls in the last year or 1 fall with injury or currently using an Ambulatory Assistive Device (Walker, Cane, Wheelchair, Crutches, etc.)? No PATIENT GENDER DATA: .male NA ALLERGIES: NA MEDICATIONS REVIEWED: Not applicable PATIENT RELEVANT IMPLANT DATA REVIEWED: Not Applicable PATIENT PRESENTS WITH AN IMPLANTABLE OR ATTACHED MILL TURNER: NA CREATININE: Creatinine Date Value Ref Range Status 11/03/2024 0.75 0.73 - 1.22 mg/dL Final 10/06/2024 0.82 0.73 - 1.22 mg/dL Final 09/09/2024 0.92 0.73 - 1.22 mg/dL Final Estimated Glomerular Filtration Rate Date Value Ref Range Status 11/03/2024 101 >=60 mL/min/1.73m? Final Comment: Estimated Glomerular Filtration Rate (eGFR) is calculated using the 2020 CKD-EPI creatinine equation. This equation utilizes serum creatinine, sex, and age as parameters. The creatinine assay has traceable calibration to isotope dilution-mass spectrometry. Refer to KDIGO guidelines for clinical interpretation. In patients with unstable renal function, e.g. those with acute kidney injury, the eGFR may not accurately reflect actual GFR. P.O.C.T. RESULTS: POC done: Yes, See Lab Tab March 07, [address] PERFORMED: No IV SITE: Ambulatory: A peripheral IV was started in the Right antecubital site with a Angio cath: 22 gauge. POST EXAM PIV STATUS: Discontinued PROCEDURE TYPE: NM INJECT: PET/CT BODY SCAN. 9.3 mCi F18 FDG. Administered By: DEM . No other medications given.. ADMINISTRATION TIME: 0815 PATIENT DISCHARGED TO: Ambulatory patient, left [place] department area. Is this a therapy: No A Diagnostic radioactive procedure has taken place, with no further precautions necessary other than routine body substance precautions. More information regarding radiation safety can be found using this link: [email or web address] SIGNATURE: RT Hailee(R) PATIENT NAME: Chun Alcaraz DATE: March 07, 2025 TIME: 8:19 AM PAGER/CONTACT #: [facility] 03-04-2025 Telephone encounter Note Spoke with spouse and scheduled both Pet Scan and OV Naty Iqbal [facility] 03-04-2025 Miscellaneous Notes Spoke with spouse and scheduled both Pet Scan and OV Naty Iqbal Can we get PET scan rescheduled now? [facility] Mel Liao LPN Referral paperwork has been completed. Just waiting until Dr. Dorsey returns for his signature before faxing to the [facility]. Mel Liao LPN Spoke with patient and cancelled ov. Spoke with [facility] who stated we need to fax referral for new authorization. Naty Iqbal Yes reschedule appt. We need to know if treatment is working , there is no sense seeing until we have that information. Bekah Rosa LPN Waiting on Auth approval please advise if OV should be rescheduled. Patient was concerned moving out OV as he doesn't like going to long without being seen. Naty Iqbal SOCIAL WORK FOLLOW UP NOTE: [facility] Date of service: February 22, 2025 Pt reports he will need to reschedule his 03/[address] Alcantara as he was unable to receive his PET scan on 02/21. Pt is confirming [facility] with [facility] and will reschedule the PET scan once authorization is received. See separate SW encounter for more details. CECY Devi documented in this encounter [facility] 03-04-2025 Telephone encounter Note Can we get PET scan rescheduled now? [facility] 03-01-2025 Telephone encounter Note [facility]erral signed [facility]. Mel Liao LPN [facility] 03-01-2025 Telephone encounter Note Prescription Refill Information The patient has been identified by name and date of : Yes Caregiver verified no other encounters exist for this prescription request: Yes Caregiver confirmed with patient/requestor that no other refills are due, in the near future, with this provider at this time: Yes The last office visit in the department: 11/11/2024 Does the patient have a future office visit with this provider/department: Waiting for [facility] approval for [facility] so OV can be scheduled. Requested Prescriptions Pending Prescriptions Disp Refills predniSONE (DELTASONE) 10 mg tablet [Pharmacy Med Name: PREDNISONE 10 MG TABLET] 30 tablet 2 Sig: TAKE 1 TABLET BY MOUTH ONCE DAILY. TAKE WITH BREAKFAST Bekah Rosa LPN March 01, 2025 8:31 AM [facility] 03-01-2025 Miscellaneous Notes Prescription Refill Information The patient has been identified by name and date of : Yes Caregiver verified no other encounters exist for this prescription request: Yes Caregiver confirmed with patient/requestor that no other refills are due, in the near future, with this provider at this time: Yes The last office visit in the department: 11/11/2024 Does the patient have a future office visit with this provider/department: Waiting for [facility] approval for PET so OV can be scheduled. Requested Prescriptions Pending Prescriptions Disp Refills predniSONE (DELTASONE) 10 mg tablet [Pharmacy Med Name: PREDNISONE 10 MG TABLET] 30 tablet 2 Sig: TAKE 1 TABLET BY MOUTH ONCE DAILY. TAKE WITH BREAKFAST Bekah Rosa LPN March 01, 2025 8:31 AM documented in this encounter [facility] 02-28-2025 Note [facility] 02-28-2025 History of Presen t illness Narrative SUBJECTIVE Chun Alcaraz is a 64 year old male here today for a check up on his medical problems. Chief Complaint Patient presents with: Recheck: discuss x-rays feels that duloxetine 60 mg is causing GI upset. HPI Chun Alcaraz is a 64 year old male. He is an established patient and presents today for follow up. Following with hem/onc for prostate and lung cancer, bone mets. Last visit he had concerns of increased back pain. We increased Cymbalta but Cymbalta has caused some stomach upset. Stopped taking it. Sleep is good. Ambien working well. Mood is doing well. [facility] and [facility] around T12. Using a cane to help with walking. Xray showed chronic T12 compression fracture. Prior issues with Lyrica and Gabapentin. Amitriptyline helping headaches. His medications were reviewed today and his list is now up to date. Medications Current Outpatient Medications Medication Sig zolpidem (AMBIEN) 10 mg Take 1 tablet by mouth at bedtime as needed for up to 180 days. albuterol HFA (PROVENTIL HFA, VENTOLIN HFA) 90 mcg/actuation inhaler Inhale 2 Puffs as instructed every 6 hours as needed for wheezing/shortness of breath. ipratropium-albuterol (DUONEB) 0.5 mg-3 mg(2.5 mg base)/3 mL nebu Inhale 3 mL as instructed every 4 hours as needed for wheezing/shortness of breath. benzonatate (TESSALON PERLE) 100 mg capsule Take 2 capsules by mouth three times a day as needed for cough. predniSONE (DELTASONE) 10 mg tablet Take 1 tablet by mouth once daily. Take with breakfast folic acid 1 mg tablet Take 1 tablet by mouth once daily. prochlorperazine (COMPAZINE) 10 mg tablet Take 1 tablet by mouth every 6 hours as needed for nausea/vomiting. metroNIDAZOLE (METROGEL) 1 % Topical Gel Apply 1 application to affected area once daily. Location: area of rash on face aspirin, enteric coated (ASPIRIN, ENTERIC COATED) 81 mg EC tablet Take 81 mg by mouth once daily. ibuprofen (MOTRIN) 200 mg tablet Take 800 mg by mouth every 8 hours as needed. magnesium aspart,citrate,oxide 400 mg magnesium cap Take 1 capsule by mouth once daily. Zinc Acetate, Oral, 50 mg (zinc) cap Take 1 capsule by mouth once daily. atorvastatin (LIPITOR) 40 mg tablet Take 40 mg by mouth once daily. cycloSPORINE 0.05 % drop Use 1 Drop in both eyes every 12 hours. esomeprazole (NEXIUM) 40 mg capsule Take 40 mg by mouth daily before breakfast. meloxicam (MOBIC) 15 mg tablet Take 1 tablet by mouth once daily. Cholecalciferol, Vitamin D3, 25 mcg (1,000 unit) cap Take 2,000 Units by mouth once daily. Multivitamin capsule Take 1 capsule by mouth once daily. amitriptyline (ELAVIL) 25 mg tablet Take 1 tablet by mouth daily at bedtime. for headache amLODIPine (NORVASC) 5 mg tablet Take 1 tablet by mouth two times a day. No current facility-administered medications for this visit. 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 - 11/10/2023 Primary Hypertension - 11/10/2023 Obesity, Class I, Bmi 30-34.9 - 01/10/2023 Insomnia Due to Medical Condition - 01/10/2023 Degeneration of Lumbar Or Lumbosacral Intervertebral Disc - 12/08/2014 Displacement of Lumbar Intervertebral Disc Without Myelopathy - 12/08/2014 Postlaminectomy Syndrome, Lumbar Region - 12/08/2014 Gerd (Gastroesophageal Reflux Disease) - 12/05/2014 Brain Aneurysm (Hcc) - 12/05/2014 Malignant Neoplasm of Prostate (Hcc) - 03/28/2014 Social History Tobacco Use Smoking status: Former Current packs/day: 0.00 Average packs/day: 2.0 packs/day for 35.0 years (70.0 ttl pk-yrs) Types: Cigarettes Start date: 1982 Quit date: 2018 Years since quittin.4 Smokeless tobacco: Never Vaping Use Vaping status: current everyday user Substances: Nicotine Substance Use Topics Alcohol use: No Comment: occasional denies use 06/2014 Drug use: No Review of Systems Respiratory: Negative. Cardiovascular: Negative. Musculoskeletal: Positive for back pain. OBJECTIVE BP 140/92 Pulse 87 Wt 191 lb 5.8 oz (86.8kg) SpO2 98% Physical Exam Vitals and nursing note reviewed. Constitutional: General: He is awake. He is not in acute distress. Appearance: Normal appearance. He is well-developed and well-groomed. He is not ill-appearing, toxic-appearing or diaphoretic. HENT: Head: Normocephalic. Right Ear: External ear normal. Left Ear: External ear normal. Nose: Nose normal. Eyes: General: Vision grossly intact. Conjunctiva/sclera: Conjunctivae normal. Pupils: Pupils are equal, round, and reactive to light. Neck: Vascular: No JVD. Trachea: Trachea normal. Cardiovascular: Rate and Rhythm: Normal rate and regular rhythm. Pulses: Normal pulses. Heart sounds: Normal heart sounds. No murmur heard. Pulmonary: Effort: Pulmonary effort is normal. No accessory muscle usage, prolonged expiration or respiratory distress. Breath sounds: Normal breath sounds. Musculoskeletal: Cervical back: Neck supple. Skin: General: Skin is warm and dry. Capillary Refill: Capillary refill takes less than 2 seconds. Neurological: General: No focal deficit present. Mental Status: He is alert and oriented to person, place, and time. Mental status is at baseline. Psychiatric: Attention and Perception: Attention and perception normal. Mood and Affect: Mood and affect normal. Speech: Speech normal. Behavior: Behavior normal. Behavior is cooperative. Thought Content: Thought content normal. Cognition and Memory: Cognition and memory normal. Judgment: Judgment normal. ASSESSMENT/PLAN: 1. Chronic right-sided thoracic back pain - ICD9: 724.1, 338.29, ICD10: M54.6, G89.29 (primary diagnosis) Stable, use of a cane helps. 2. Insomnia due to medical condition - ICD9: 327.01, ICD10: G47.01 Stable, Ambien still helpful. 3. Chronic nonintractable headache, unspecified headache type - ICD9: 784.0, ICD10: R51.9, G89.29 Amitriptyline helping, continue current dose. - AMITRIPTYLINE 25 MG TABLET 4. Primary hypertension - ICD9: 401.9, ICD10: I10 - Worsening control - Increase amlodipine - Recommend home blood pressure monitoring, to bring results to next visit - Encouraged sodium restriction, DASH or Mediterranean diet - Recommend regular aerobic exercise - AMLODIPINE 5 MG TABLET 5. Malignant neoplasm of lung, unspecified laterality, unspecified part of lung (HCC) - ICD9: 162.9, ICD10: C34.90 Following with hem/onc. 6. Cancer, metastatic to bone (HCC) - ICD9: 198.5, ICD10: C79.51 7. Malignant neoplasm of prostate (HCC) - ICD9: 185, ICD10: C61 8. Situational mixed anxiety and depressive disorder - ICD9: 309.28, ICD10: F43.23 Mood stable even without Cymbalta. Portions of this note have been entered by ancillary staff. I have reviewed and when necessary edited, so that they are an adequate record of my encounter with this patient Please note that parts of this document were created using voice recognition software and therefore may contain grammatical errors. Patient verbalizes understanding of instructions from today's visit and in agreement with treatment plan. Questions answered. Agrees to call the office if questions, concerns of issues with acute symptoms not improving or if they worsen. See diagnoses and orders for additional plan(s). Allergies and medications were reviewed, list was updated, and refills given if needed. Past medical, surgical, social, and family history reviewed and updated as appropriate. Encouraged proper diet & exercise as well as compliance with taking medications. Age-appropriate health preventative measures were discussed. Return in about 6 weeks (around 04/11/2025), or if symptoms worsen or fail to improve, for recheck on blood pressure. Jose Brennan APRN-NAY documented in this encounter [facility] 02-28-2025 Telephone encounter Note Referral paperwork has been completed. Just waiting until Dr. Dorsey returns for his signature before [facility]ing to the [facility]. Mel Liao LPN [facility] 02-25-2025 Telephone encounter Note Spoke with patient and cancelled ov. Spoke with [facility] who stated we need to fax referral for new authorization. Naty Iqbal [facility] 02-25-2025 Telephone encounter Note Yes reschedule appt. We need to know if treatment is working , there is no sense seeing until we have that information. Bekah Rosa LPN [facility] 02-22-2025 Telephone encounter Note Waiting on Auth approval please advise if OV should be rescheduled. Patient was concerned moving out OV as he doesn't like going to long without being seen. Naty Iqbal [facility] 02-22-2025 Telephone encounter Note SOCIAL WORK FOLLOW UP NOTE: [facility] Date of service: February 22, 2025 Pt reports he will need to reschedule his 03/[address] A as he was unable to receive his PET scan on 02/21. Pt is [facility] with the [facility] and will reschedule the PET scan once authorization is received. See separate SW encounter for more details. CECY Devi T [facility] 02-22-2025 Telephone encounter Note SOCIAL WORK FOLLOW UP NOTE: [facility] Date of service: February 18, 2025 Chun Alcaraz is being seen for a follow up social work visit. Today's visit includes: spouse and patient TOPICS ADDRESSED: [facility] spoke with pt and his who report they have been receiving bills for recent PET scans. Pt is concerned about amount owed and reports he should have no co-pays or balance due as the [facility] should be covering all expenses. [facility] reached out to financial department who reports pt's last PET scan was authorized. [place] Authorization# [id number] valid dates 06/23/24 to 12/20/24. [facility] encouraged pt and to contact radiology company who preformed PET scan and ensure they have the above information. Pt also reports he needed to cancel his PET scan for 02/21/25 as he showed up and was told it was unauthorized. OSCAR encouraged pt and to call [facility] and inquire [facility] is needed. Pt's returned SW's call and reported the [facility] will be faxing a form to the clinic to be completed and faxed back to the [facility] for approval for PET scans. reports once the form is faxed back, they can reschedule the current PET scan. No other needs identified at this time. PLAN: Continue follow up as needed F/U APPOINTMENT: PRN Assigned SW listed in Care Team tab: Yes CECY Devi T [facility] 02-22-2025 Miscellaneous Notes SOCIAL WORK FOLLOW UP NOTE: [facility] Date of service: February 18, 2025 Chun Alcaraz is being seen for a follow up social work visit. Today's visit includes: spouse and patient TOPICS ADDRESSED: OSCAR spoke with pt and his who report they have been receiving bills for recent PET scans. Pt is concerned about amount owed and reports he should have no co-pays or balance due as the [facility] should be covering all expenses. OSCAR reached out to financial department who reports pt's last PET scan was authorized. [place] Authorization# [id number] valid dates 06/23/24 to 12/20/24. SW encouraged pt and to contact radiology company who preformed PET scan and ensure they have the above information. Pt also reports he needed to cancel his PET scan for 02/21/25 as he showed up and was told it was unauthorized. OSCAR encouraged pt and to call the [facility] and inquire what is needed. Pt's returned OSCAR's call and reported the [facility] will be faxing a form to the clinic to be completed and faxed back to the [facility] for approval for PET scans. reports once the form is faxed back, they can reschedule the current PET scan. No other needs identified at this time. PLAN: Continue follow up as needed F/U APPOINTMENT: PRN Assigned OSCAR listed in Care Team tab: Yes CECY Devi documented in this encounter [facility] 02-09-2025 Telephone encounter Note noted [facility] 02-09-2025 Miscellaneous Notes noted Hetal from [employer] [facility] calls and states that if nebulizer is unopened then it can be put back into medical supplies. Hetal Gomes, RN 2nd message left asking for a return call from a rep at [facility]. Patient returned the nebulizer kit that was dispensed to him 11/16/24. Called and left a message for Mango at the [facility] to ask what we are to do with kit. documented in this encounter [facility] 02-08-2025 Telephone encounter Note Hetal from [employer] [facility] calls and states that if nebulizer is unopened then it can be put back into medical supplies. Hetal Gomes RN [facility] 02-08-2025 Telephone encounter Note 2nd message left asking for a return call from a rep at [facility]. [facility] 02-04-2025 Telephone encounter Note Patient returned the nebulizer kit that was dispensed to him 11/16/24. Called and left a message for Mango at the [facility] to ask what we are to do with kit. [facility] 01-17-2025 History of Presen t illness Narrative Radiology Service Progress Note PATIENT NAME: Chun Alcaraz DATE OF SERVICE: January 17, 2025 TIME: 11:14 AM PATIENT IDENTITY VERIFICATION COMPLETED USING TWO (2) IDENTIFIERS: Name and Date of confirmed by patient verbally. FALL SCREENING: Has the patient had 2 falls in the last year or 1 fall with injury or currently using an Ambulatory Assistive Device (Walker, Cane, Wheelchair, Crutches, etc.)? No PATIENT GENDER DATA: Assigned male at PATIENT RELEVANT IMPLANT DATA REVIEWED: Not Applicable PATIENT PRESENTS WITH AN IMPLANTABLE OR ATTACHED MILL TURNER: No RADIOLOGY DEPARTMENT: General X-ray: Exam(s) Completed: Spine X-Ray(s): Lumbar AP / LAT / L5-S1 PERIPHERAL IV DATA: Not applicable SIGNED BY: Rick Kaufman January 17, 2025 11:14 AM documented in this encounter [facility] 01-17-2025 Note [facility] 01-17-2025 Note [facility] 01-17-2025 History of Presen t illness Narrative SUBJECTIVE Chun Alcaraz is a 64 year old male here today for a check up on his medical problems. Chief Complaint Patient presents with: F/U 6 months: states hurting all over and pain is interfering with ambulation HPI Chun is a 64-year-old male with a history of cancer, presenting with worsening pain and neuropathy. Chun reports severe pain that is significantly impacting his mobility, stating he can hardly walk anymore. The pain is primarily located in the lower back and radiates down his legs. He also experiences pain in his hands, describing an inability to make a fist or clamp. Additionally, he reports dyspnea, particularly when coughing or taking a deep breath, describing it as feeling like a cracked rib, though he denies any recent trauma or falls. Chun has a history of chemotherapy, which he has discontinued due to concerns about neuropathy. He describes neuropathic pain in his hands, stating it springs out into the fingers, in the knuckles. He also reports numbness and a sensation of coldness in his feet, as well as pain in his legs that makes it difficult to lift them. He is currently taking meloxicam daily for back pain, but reports it is not providing relief. He also takes a muscle relaxant and Ambien at night to help with sleep, which he describes as pretty good, though he notes difficulty falling asleep quickly and needing to get up if he wakes during the night. He is also on Cymbalta 30 mg, which he has been taking for a while without issues unless he forgets a dose, at which point he experiences head symptoms. He has prednisone available but does not use it, stating it does not seem to help. He expresses reluctance to try gabapentin or Lyrica due to concerns about cognitive side effects, stating, I can't afford no more loss of focus. Chun reports a poor appetite and constipation, for which he takes [id number] stool softeners twice daily. He has a scheduled PET scan and a follow-up appointment with his oncologist on February 02. Recording using [employer] software for draft documentation of the visit was discussed with the patient/authorized open claims representative; all questions welcomed and answered. Patient/authorized open claims representative agreed to proceed His medications were reviewed today and his list is now up to date. Medications Current Outpatient Medications Medication Sig albuterol HFA (PROVENTIL HFA, VENTOLIN HFA) 90 mcg/actuation inhaler Inhale 2 Puffs as instructed every 6 hours as needed for wheezing/shortness of breath. ipratropium-albuterol (DUONEB) 0.5 mg-3 mg(2.5 mg base)/3 mL nebu Inhale 3 mL as instructed every 4 hours as needed for wheezing/shortness of breath. benzonatate (TESSALON PERLE) 100 mg capsule Take 2 capsules by mouth three times a day as needed for cough. predniSONE (DELTASONE) 10 mg tablet Take 1 tablet by mouth once daily. Take with breakfast folic acid 1 mg tablet Take 1 tablet by mouth once daily. amitriptyline (ELAVIL) 25 mg tablet Take 1 tablet by mouth daily at bedtime. for headache prochlorperazine (COMPAZINE) 10 mg tablet Take 1 tablet by mouth every 6 hours as needed for nausea/vomiting. amLODIPine (NORVASC) 5 mg tablet Take 1 tablet by mouth once daily. metroNIDAZOLE (METROGEL) 1 % Topical Gel Apply 1 application to affected area once daily. Location: area of rash on face aspirin, enteric coated (ASPIRIN, ENTERIC COATED) 81 mg EC tablet Take 81 mg by mouth once daily. ibuprofen (MOTRIN) 200 mg tablet Take 800 mg by mouth every 8 hours as needed. magnesium aspart,citrate,oxide 400 mg magnesium cap Take 1 capsule by mouth once daily. Zinc Acetate, Oral, 50 mg (zinc) cap Take 1 capsule by mouth once daily. atorvastatin (LIPITOR) 40 mg tablet Take 40 mg by mouth once daily. cycloSPORINE 0.05 % drop Use 1 Drop in both eyes every 12 hours. esomeprazole (NEXIUM) 40 mg capsule Take 40 mg by mouth daily before breakfast. meloxicam (MOBIC) 15 mg tablet Take 1 tablet by mouth once daily. tiZANidine 4 mg tablet Take 4 mg by mouth every 8 hours as needed. Cholecalciferol, Vitamin D3, 25 mcg (1,000 unit) cap Take 2,000 Units by mouth once daily. Multivitamin capsule Take 1 capsule by mouth once daily. zolpidem (AMBIEN) 10 mg Take 1 tablet by mouth at bedtime as needed for up to 180 days. DULoxetine (CYMBALTA) 60 mg capsule Take 1 capsule by mouth once daily. No current facility-administered medications for this visit. ALLERGIES Allergen Reactions Adhesive Tape-Silic* Rash Butrans [Buprenorph* Hives Burning at patch site Codeine Vomiting ACTIVE PROBLEM LIST Malignant Neoplasm of Lung (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) - 11/10/2023 Aneurysm of Vertebral Artery - 11/10/2023 Primary Hypertension - 11/10/2023 Obesity, Class I, Bmi 30-34.9 - 01/10/2023 Insomnia Due to Medical Condition - 01/10/2023 Degeneration of Lumbar Or Lumbosacral Intervertebral Disc - 12/08/2014 Displacement of Lumbar Intervertebral Disc Without Myelopathy - 12/08/2014 Postlaminectomy Syndrome, Lumbar Region - 12/08/2014 Gerd (Gastroesophageal Reflux Disease) - 12/05/2014 Brain Aneurysm ([facility]) - 12/05/2014 Malignant Neoplasm of Prostate ([facility]) - 03/28/2014 Social History Tobacco Use Smoking status: Former Current packs/day: 0.00 Average packs/day: 2.0 packs/day for 35.0 years (70.0 ttl pk-yrs) Types: Cigarettes Start date: 1982 Quit date: 2018 Years since quittin.3 Smokeless tobacco: Never Vaping Use Vaping status: current everyday user Substances: Nicotine Substance Use Topics Alcohol use: No Comment: occasional denies use 06/2014 Drug use: No Review of Systems Respiratory: Negative. Cardiovascular: Negative. Gastrointestinal: Positive for constipation. Musculoskeletal: Positive for arthralgias, back pain and myalgias. OBJECTIVE BP 148/90 Pulse 79 Wt 201 lb 4.5 oz (91.3kg) SpO2 98% Physical Exam Vitals and nursing note reviewed. Constitutional: General: He is awake. He is not in acute distress. Appearance: Normal appearance. He is well-developed and well-groomed. He is not ill-appearing, toxic-appearing or diaphoretic. HENT: Head: Normocephalic. Right Ear: External ear normal. Left Ear: External ear normal. Nose: Nose normal. Eyes: General: Vision grossly intact. Conjunctiva/sclera: Conjunctivae normal. Pupils: Pupils are equal, round, and reactive to light. Neck: Vascular: No JVD. Trachea: Trachea normal. Cardiovascular: Rate and Rhythm: Normal rate and regular rhythm. Pulses: Normal pulses. Heart sounds: Normal heart sounds. No murmur heard. Pulmonary: Effort: Pulmonary effort is normal. No accessory muscle usage, prolonged expiration or respiratory distress. Breath sounds: Normal breath sounds. Musculoskeletal: General: Normal range of motion. Cervical back: Neck supple. Skin: General: Skin is warm and dry. Capillary Refill: Capillary refill takes less than 2 seconds. Neurological: General: No focal deficit present. Mental Status: He is alert and oriented to person, place, and time. Mental status is at baseline. Psychiatric: Attention and Perception: Attention and perception normal. Mood and Affect: Mood and affect normal. Speech: Speech normal. Behavior: Behavior normal. Behavior is cooperative. Thought Content: Thought content normal. Cognition and Memory: Cognition and memory normal. Judgment: Judgment normal. ASSESSMENT/PLAN: 1. Insomnia due to medical condition (G47.01) Currently managed with Ambien and muscle relaxants at night. - Continue current regimen of Ambien and muscle relaxants at night. 2. Malignant neoplasm of lung, unspecified laterality, unspecified part of lung (HCC) (C34.90) Cancer, metastatic to bone (HCC) (C79.51) Patient has decided to pause chemotherapy treatment. Follow-up with oncologist Dr. Smith scheduled for February 02, with a PET scan a week prior. - Monitor for any changes or progression in symptoms. - Follow-up with oncologist as scheduled. 3. Situational mixed anxiety and depressive disorder (F43.23) Currently managed with Cymbalta 30 mg daily. - Increase Cymbalta to 60 mg daily; patient to take two 30 mg capsules until new prescription is filled. 4. Primary hypertension (I10) Blood pressure slightly elevated, likely secondary to pain. - No changes to antihypertensive medications at this time. - Re-evaluate blood pressure control at next follow-up. 5. Chronic right-sided thoracic back pain (M54.6) Severe, affecting mobility and respiratory effort. Current management with meloxicam and muscle relaxants is insufficient. Recent chest X-ray showed no rib fractures. - Ordered lumbar spine X-ray to assess for degenerative changes. - Increase Cymbalta to 60 mg daily. - Consider tramadol if pain persists after addressing constipation. -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 pain (acute) (chronic) [facility] Diagnosis 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)- Primary [facility] Diagnosis 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) [facility] Diagnosis Dyspnea, unspecified type- Primary Dyspnea, unspecified type [facility], unspecified type [facility] Diagnosis 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)- Primary [facility] Diagnosis Metastasis to bone (HCC)- Primary Secondary malignant neoplasm of bone and bone marrow [facility] Diagnosis Metastasis to bone (HCC)- Primary Secondary malignant neoplasm of bone and bone marrow [facility] Diagnosis 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 Malignant neoplasm of prostate (HCC) Malignant neoplasm of prostate Cancer, 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 Malignant neoplasm of lung, unspecified laterality, unspecified part of lung (HCC) 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 due to medical condition classified elsewhere Need for influenza vaccination Need for prophylactic vaccination and inoculation against influenza Situational mixed anxiety and depressive disorder Adjustment disorder with mixed anxiety and depressed mood Chronic nonintractable headache, unspecified headache type Primary hypertension Unspecified essential hypertension Hyperlipidemia, unspecified hyperlipidemia type Rash Rash and other nonspecific skin eruption [facility] Diagnosis 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)- Primary [facility] Diagnosis Encounter for education- Primary Counseling NOS 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) [facility] Diagnosis 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 [facility] Diagnosis Primary hypertension Unspecified essential hypertension [facility] Diagnosis 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 [facility] Diagnosis 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 [facility] Diagnosis 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)- Primary Malignant neoplasm of unspecified part of unspecified bronchus or lung (HCC) Hx of malignant neoplasm of prostate Personal history of malignant neoplasm of prostate [facility] Diagnosis 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 [facility] Diagnosis 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 [facility] Diagnosis CINV (chemotherapy-induced nausea and vomiting)- Primary Nausea with vomiting [facility] Diagnosis 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) [facility] Diagnosis Chronic nonintractable headache, unspecified headache type [facility] Diagnosis 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) [facility] Diagnosis Chronic nonintractable headache, unspecified headache type [facility] Diagnosis 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) [facility] Diagnosis 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) [facility] Diagnosis 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)- Primary [facility] Diagnosis Malignant neoplasm of unspecified part of unspecified bronchus or lung (HCC)- Primary [facility] Diagnosis Sinobronchitis- Primary Unspecified sinusitis (chronic) Subacute cough Cough Malignant neoplasm of lung, unspecified laterality, unspecified part of lung (HCC) 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 anxiety and depressive disorder Adjustment disorder with mixed anxiety and depressed mood Acute right-sided thoracic back pain [facility] Subacute cough Cough [facility] Diagnosis Insomnia due to medical condition- Primary Insomnia due to medical condition classified elsewhere Malignant neoplasm of lung, unspecified laterality, unspecified part of lung (HCC) Cancer, 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 anxiety and depressive disorder Adjustment disorder with mixed anxiety and depressed mood Primary hypertension Unspecified essential hypertension Chronic right-sided thoracic back pain 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 Constipation, unspecified constipation type [facility] Diagnosis Cancer, 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 [facility] Diagnosis Chronic right-sided thoracic back pain- Primary 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 due to medical condition classified elsewhere Chronic nonintractable headache, unspecified headache type Primary hypertension Unspecified essential hypertension Malignant neoplasm of lung, unspecified laterality, unspecified part of lung (HCC) Cancer, 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 Malignant neoplasm of prostate (HCC) Malignant neoplasm of prostate Situational mixed anxiety and depressive disorder Adjustment disorder with mixed anxiety and depressed mood [facility] Diagnosis Malignant neoplasm of unspecified part of unspecified bronchus or lung (HCC) documented in this encounter [facility] Discharge instructions No data available for this section [facility] Reason for referral (narrative)* Diagnostic Procedure Only (Routine) - Authorized Specialty Diagnoses / Procedures Referred By Contac t Referred To Contact MOLECULAR & FUNCTIONAL IMAGING Diagnoses 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) Procedures NM PET/CT SKULL-THIGH SUBSEQUENT PET IMAGING CT ATTENUATION [place] [address] [place] [address] Molecular & Functional Imaging [address] [place] [address] Referral ID Status Reason Start Date Expiration Date Visits Requested Visits Authorized [id number] Authorized Auto-Generat ed Referral 05/14/2024 06/13/2025 1 1 [facility] for referral (narrative)* Diagnostic Procedure Only (Routine) - Closed Specialty Diagnoses / Procedures Referred By Contac t Referred To Contact MOLECULAR & FUNCTIONAL IMAGING Diagnoses 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) Procedures NM PET/CT SKULL-THIGH SUBSEQUENT PET IMAGING CT ATTENUATION [place] [address] [place] [id number] Molecular & Functional Imaging [address] [place] [address] Referral ID Status Reason Start Date Expiration Date V isits Requested Visits Authorized [id number] Closed Auto-Generate d Referral 05/14/2024 06/13/2025 1 1 [facility] for referral (narrative)* Diagnostic Procedure Only (Routine) - Closed Specialty Diagnoses / Procedures [facility] X[facility] IMAGING Diagnoses 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) Procedures XR FEMUR GENERAL 2V AP/LAT LEFT RADIOLOGIC EXAMINATION FEMUR MINIMUM 2 [place] [address] [place] [id number] Xr Imaging [place] [address] Referral ID Status Reason Start Date Expiration Date V isits Requested Visits Authorized [id number] Closed Auto-Generate d Referral 06/18/2024 07/18/2025 1 1 T [facility] for referral (narrative)* Diagnostic Procedure Only (Routine) - Pending Review Specialty Diagnoses / Procedures [facility] Contact MOLECULAR & FUNCTIONAL IMAGING Diagnoses 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) Procedures NM PET/CT SKULL-THIGH SUBSEQUENT PET IMAGING CT ATTENUATION SK[place] [address] [place] [phone] Molecular & Functional Imaging [address] [place] [address] Referral ID Status Reason Start Date Expiration Date Visits Requested Visits Authorized [id number] Pending Review Auto-Generat ed Referral 10/06/2024 11/05/2025 1 1 [facility] for visit Narrative* Diagnostic Procedure Only (Routine) - Closed Specialty Diagnoses / Procedures Referred By Contac t Referred To Contact MOLECULAR & FUNCTIONAL IMAGING Diagnoses 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) Procedures NM PET/CT SKULL-THIGH SUBSEQUENT PET IMAGING CT ATTENUATION SKULL [place] [address] [place] [id number] Molecular & Functional Imaging [address] [place] [address] Referral ID Status Reason Start Date Expiration Date V isits Requested Visits Authorized [id number] Closed Auto-Generate d Referral 05/14/2024 06/13/2025 1 1 [facility] for visit Narrative* Diagnostic Procedure Only (Routine) - Closed Specialty Diagnoses / Procedures Referred By Contac t Referred To Contact XR IMAGING Diagnoses 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) Procedures XR FEMUR GENERAL 2V AP/LAT LEFT RADIOLOGIC EXAMINATION FEMUR MINIMUM 2 [place] [address] [place] [id number] Xr Imaging [place] [address] Referral ID Status Reason Start Date Expiration Date V isits Requested Visits Authorized [id number] Closed Auto-Generate d Referral 06/18/2024 07/18/2025 1 1 [facility] for visit Narrative* Diagnostic Procedure Only (Routine) - Closed Specialty Diagnoses / Procedures Referred By Contac t Referred To Contact MOLECULAR & FUNCTIONAL IMAGING Diagnoses 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) Procedures NM PET/CT SKULL-THIGH SUBSEQUENT PET IMAGING CT ATTENUATION SK[place] [address] [place] [address] Phone: tel: fax: Molecular Imaging [address] [place] [address] Phone: tel: Referral ID Status Reason Start Date Expiration Date V isits Requested Visits Authorized [id number] Closed Auto-Generate d Referral 06/23/2024 12/20/2024 2 2 [facility] for visit Narrative* Diagnostic Procedure Only (Routine) - Closed Specialty Diagnoses / Procedures Referred By Contac t Referred To Contact XR IMAGING Diagnoses Cancer, metastatic to bone (HCC) Procedures XR LUMBAR GENERAL 3V AP/LAT/L5-S1 RADEX SPINE LUMBOSACRAL 2/3 VIEWS Jose Brennan, SENIOR MARKETING ANALYST.HUMAN PERFORMANCE PROFESSOR [address] [place] [address] Phone: tel: fax: [place] [address] Referral ID Status Reason Start Date Expiration Date V isits Requested Visits Authorized [id number] Closed Auto-Generate d Referral 01/17/2025 02/16/2026 1 1 [facility] for visit Narrative* Diagnostic Procedure Only (Routine) - Denied Specialty Diagnoses / Procedures Referred By Contac t Referred To Contact MOLECULAR & FUNCTIONAL IMAGING Diagnoses Malignant neoplasm of unspecified part of unspecified bronchus or lung (HCC) Procedures NM PET/CT SKULL-THIGH SUBSEQUENT PET IMAGING CT ATTENUATION SKULL [place] [address] [place] [address] Phone: tel: fax: Molecular Imaging [address] [place] [address] Phone: tel: Referral ID Status Reason Start Date Expiration Date V isits Requested Visits Authorized [id number] Denied Clearance Not Met - Admin/Chairm an/Director Advise to Postpone/Res chedule or Not Proceed 11/12/2024 12/12/2025 0 0 [facility] for visit Narrative* Diagnostic Procedure Only (Routine) - Denied Specialty Diagnoses / Procedures Referred By Contac t Referred To Contact MOLECULAR & FUNCTIONAL IMAGING Diagnoses Malignant neoplasm of unspecified part of unspecified bronchus or lung (HCC) Procedures NM PET/CT SKULL-THIGH SUBSEQUENT PET IMAGING CT ATTENUATION SKULL [place] [address] [place] [address] Phone: tel: fax: Molecular Imaging [address] [place] [address] Phone: tel: Referral ID Status Reason Start Date Expiration Date V isits Requested Visits Authorized [id number] Denied Clearance Not Met - Admin/Chairm an/Director Advise to Postpone/Res chedule or Not Proceed 11/12/2024 12/12/2025 0 0 [facility] Summary Purpose Family History No Family History Records FoundNo Family History Records FoundNo Family History Records FoundNo Family History Records FoundNo Family History Records FoundNo Family History Records FoundNo Family History Records FoundNo Family History Records FoundNo Family History Records FoundNo Family History Records FoundNo Family History Records Found Advance Directives No Advanced Directives Records FoundNo Advanced Directives Records FoundNo Advanced Directives Records FoundNo Advanced Directives Records FoundNo Advanced Directives Records FoundNo Advanced Directives Records FoundNo Advanced Directives Records FoundNo Advanced Directives Records FoundNo Advanced Directives Records FoundNo Advanced Directives Records FoundNo Advanced Directives Records Found Reason for Referral Specialty Diagnoses / Procedures Referred By Carrie t Referred To Contact Radiology Diagnoses Dyspnea, unspecified type Procedures XR CHEST PA+LAT 2 VIEWS Anne-Marie Constantino [address] [place] [address] [facility] DIAGNOSTIC RADIOLOGY [address] [place] [address] [place] [phone] Referral ID Status Reason Start Date Expiration Date Visits Re quested Visits Authorized [id number] Closed 06/21/2024 06/21/2025 1 1 Specialty Diagnoses / Procedures Referred By Carrie t Referred To Contact CT IMAGING Diagnoses Malignant neoplasm of unspecified part of unspecified bronchus or lung (HCC) Procedures CT CHEST W IVCON DIAGNOSTIC COMPUTED TOMOGRAPHY THORAX W/[place] [address] [place] [address] [place] [address] Referral ID Status Reason Start Date Expiration Date Visits Requested Visits Authorized [id number] Authorized Auto-Generat ed Referral 02/11/2024 03/12/2025 1 1 Specialty Diagnoses / Procedures Referred By Contac t Referred To Contact RADIATION ONCOLOGY Diagnoses 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) Procedures CT SIM PLANNING RADIATION ONCOLOGY THER RAD SIMULAJ-AIDED FIELD SETTING COMPLEX INTENSITY MODULATED RADIATION TX DLVR Vimal Garcia MD [address] [place] [address] Radt [facility] [address] [place] [address] Referral ID Status Reason Start Date Expiration Date Visits Requested Visits Authorized [id number] Pending Review PCP Requested Referral 11/14/2023 02/12/2024 36 36 [facility]ty Diagnoses / Procedures [facility] Contact CT IM[facility]ING Diagnoses Brain aneurysm Malignant neoplasm of prostate (HCC) Seizure-like activity (HCC) Aneurysm of vertebral artery (HCC) Procedures CTA NECK W IVCON CT ANGIOGRAPHY NECK W/CONTRAST/NONCONTRAST Jose Brennan APRN.HUMAN PERFORMANCE PROFESSOR [address] [place] [address] Ct Imaging [id number] Referral ID Status Reason Start Date Expiration Date Visits Requested Visits Authorized [id number] Authorized Auto-Generat ed Referral 3 09/07/2023 1 1 Specialty Diagnoses / Procedures [facility] Ref[facility] To Contact CT IMAGING Diagnoses Brain aneurysm Malignant neoplasm of prostate (HCC) Seizure-like activity (HCC) Nonruptured cerebral aneurysm Procedures CTA HEAD WO/W IVCON CT ANGIOGRAPHY HEAD W/CONTRAST/NONCONTRAST Jose Brennan APRN.HUMAN PERFORMANCE PROFESSOR [address] [place] [address] [place] [address] Referral ID Status Reason Start Date Expiration Date Visits Requested Visits Authorized [id number] Authorized Auto-Generat ed Referral 3 09/07/2023 1 1 Additional Source Comments (unrecognized sect ion and content) No Status Records FoundNo Status Records FoundNo Status Records FoundNo Status Records FoundNo Status Records FoundNo Status Records FoundNo Status Records FoundNo Status Records FoundNo Status Records FoundNo Status Records FoundNo Status Records Found INFORMATION SOURCE (unrecogn ized section and content) DATE CREATED AUTHOR 11/15/2019 [facility] DATE CREATED AUTHOR AUTHOR'S ORGANIZ ATION 02/16/2020 [facility] DATE CREATED AUTHOR AUTHOR'S ORGANIZ ATION 10/16/2021 [facility] ([place] DATE CREATED AUTHOR AUTHOR'S ORGANIZ ATION 01/11/2022 [facility] DATE CREATED AUTHOR AUTHOR'S ORGANIZ ATION 12/11/2022 [facility] DATE CREATED AUTHOR AUTHOR'S ORGANIZ ATION 12/12/2022 [facility] DATE CREATED AUTHOR AUTHOR'S ORGANIZ ATION 06/23/2024 [facility] DATE CREATED AUTHOR AUTHOR'S ORGANIZ ATION 07/08/2024 [facility] DATE CREATED AUTHOR AUTHOR'S ORGANIZ ATION 11/11/2024 [facility] DATE CREATED AUTHOR AUTHOR'S ORGANIZ ATION 03/05/2025 [facility] DATE CREATED AUTHOR AUTHOR'S ORGANIZ ATION 03/08/2025 [facility] Source Comments (unrecognize d section and content) In the event this informatio n is protected by the Federal Confidentiality of Alcohol and Drug Abuse Patient Records regulations: The Federal rules restrict any use of the information to criminally investigate or prosecute any alcohol or drug abuse patient.[facility] the event this information is protected by the Federal Confidentiality of Alcohol and Drug Abuse Patient Records regulations: The Federal rules restrict any use of the information to criminally investigate or prosecute any alcohol or drug abuse patient.[facility] Center[facility] the event this information is protected by the Federal Confidentiality of Alcohol and Drug Abuse Patient Records regulations: The Federal rules restrict any use of the information to criminally investigate or prosecute any alcohol or drug abuse patient.[facility] the event this information is protected by the Federal Confidentiality of Alcohol and Drug Abuse Patient Records regulations: The Federal rules restrict any use of the information to criminally investigate or prosecute any alcohol or drug abuse patient.[facility] the event this information is protected by the Federal Confidentiality of Alcohol and Drug Abuse Patient Records regulations: The Federal rules restrict any use of the information to criminally investigate or prosecute any alcohol or drug abuse patient.[facility] Center[facility] the event this information is protected by the Federal Confidentiality of Alcohol and Drug Abuse Patient Records regulations: The Federal rules restrict any use of the information to criminally investigate or prosecute any alcohol or drug abuse patient.[facility] Center[facility] the event this information is protected by the Federal Confidentiality of Alcohol and Drug Abuse Patient Records regulations: The Federal rules restrict any use of the information to criminally investigate or prosecute any alcohol or drug abuse patient.[facility] Center[facility] the event this information is protected by the Federal Confidentiality of Alcohol and Drug Abuse Patient Records regulations: The Federal rules restrict any use of the information to criminally investigate or prosecute any alcohol or drug abuse patient.[facility] Center[facility] the event this information is protected by the Federal Confidentiality of Alcohol and Drug Abuse Patient Records regulations: The Federal rules restrict any use of the information to criminally investigate or prosecute any alcohol or drug abuse patient.[facility] Center[facility] the event this information is protected by the Federal Confidentiality of Alcohol and Drug Abuse Patient Records regulations: The Federal rules restrict any use of the information to criminally investigate or prosecute any alcohol or drug abuse patient.[facility] Center[facility] the event this information is protected by the Federal Confidentiality of Alcohol and Drug Abuse Patient Records regulations: The Federal rules restrict any use of the information to criminally investigate or prosecute any alcohol or drug abuse patient.[facility] Center[facility] the event this information is protected by the Federal Confidentiality of Alcohol and Drug Abuse Patient Records regulations: The Federal rules restrict any use of the information to criminally investigate or prosecute any alcohol or drug abuse patient.[facility] Center[facility] the event this information is protected by the Federal Confidentiality of Alcohol and Drug Abuse Patient Records regulations: The Federal rules restrict any use of the information to criminally investigate or prosecute any alcohol or drug abuse patient.[facility] Center[facility] the event this information is protected by the Federal Confidentiality of Alcohol and Drug Abuse Patient Records regulations: The Federal rules restrict any use of the information to criminally investigate or prosecute any alcohol or drug abuse patient.[facility] Center[facility] the event this information is protected by the Federal Confidentiality of Alcohol and Drug Abuse Patient Records regulations: The Federal rules restrict any use of the information to criminally investigate or prosecute any alcohol or drug abuse patient.[facility] [facility] CenterIn the event this information is protected by the Federal Confidentiality of Alcohol and Drug Abuse Patient Records regulations: The Federal rules restrict any use of the information to criminally investigate or prosecute any alcohol or drug abuse patient.[facility]In the event this information is protected by the Federal Confidentiality of Alcohol and Drug Abuse Patient Records regulations: The Federal rules restrict any use of the information to criminally investigate or prosecute any alcohol or drug abuse patient.[facility] CenterIn the event this information is protected by the Federal Confidentiality of Alcohol and Drug Abuse Patient Records regulations: The Federal rules restrict any use of the information to criminally investigate or prosecute any alcohol or drug abuse patient.[facility] CenterIn the event this information is protected by the Federal Confidentiality of Alcohol and Drug Abuse Patient Records regulations: The Federal rules restrict any use of the information to criminally investigate or prosecute any alcohol or drug abuse patient.[facility] CenterIn the event this information is protected by the Federal Confidentiality of Alcohol and Drug Abuse Patient Records regulations: The Federal rules restrict any use of the information to criminally investigate or prosecute any alcohol or drug abuse patient.[facility] CenterIn the event this information is protected by the Federal Confidentiality of Alcohol and Drug Abuse Patient Records regulations: The Federal rules restrict any use of the information to criminally investigate or prosecute any alcohol or drug abuse patient.[facility] CenterIn the event this information is protected by the Federal Confidentiality of Alcohol and Drug Abuse Patient Records regulations: The Federal rules restrict any use of the information to criminally investigate or prosecute any alcohol or drug abuse patient.[facility] CenterIn the event this information is protected by the Federal Confidentiality of Alcohol and Drug Abuse Patient Records regulations: The Federal rules restrict any use of the information to criminally investigate or prosecute any alcohol or drug abuse patient.[facility] CenterIn the event this information is protected by the Federal Confidentiality of Alcohol and Drug Abuse Patient Records regulations: The Federal rules restrict any use of the information to criminally investigate or prosecute any alcohol or drug abuse patient.[facility] CenterIn the event this information is protected by the Federal Confidentiality of Alcohol and Drug Abuse Patient Records regulations: The Federal rules restrict any use of the information to criminally investigate or prosecute any alcohol or drug abuse patient.[facility] CenterIn the event this information is protected by the Federal Confidentiality of Alcohol and Drug Abuse Patient Records regulations: The Federal rules restrict any use of the information to criminally investigate or prosecute any alcohol or drug abuse patient.[facility] CenterIn the event this information is protected by the Federal Confidentiality of Alcohol and Drug Abuse Patient Records regulations: The Federal rules restrict any use of the information to criminally investigate or prosecute any alcohol or drug abuse patient.[facility] CenterIn the event this information is protected by the Federal Confidentiality of Alcohol and Drug Abuse Patient Records regulations: The Federal rules restrict any use of the information to criminally investigate or prosecute any alcohol or drug abuse patient.[facility] CenterIn the event this information is protected by the Federal Confidentiality of Alcohol and Drug Abuse Patient Records regulations: The Federal rules restrict any use of the information to criminally investigate or prosecute any alcohol or drug abuse patient.[facility] CenterIn the event this information is protected by the Federal Confidentiality of Alcohol and Drug Abuse Patient Records regulations: The Federal rules restrict any use of the information to criminally investigate or prosecute any alcohol or drug abuse patient.[facility] CenterIn the event this information is protected by the Federal Confidentiality of Alcohol and Drug Abuse Patient Records regulations: The Federal rules restrict any use of the information to criminally investigate or prosecute any alcohol or drug abuse patient.[facility] CenterIn the event this information is protected by the Federal Confidentiality of Alcohol and Drug Abuse Patient Records regulations: The Federal rules restrict any use of the information to criminally investigate or prosecute any alcohol or drug abuse patient.[facility] CenterIn the event this information is protected by the Federal Confidentiality of Alcohol and Drug Abuse Patient Records regulations: The Federal rules restrict any use of the information to criminally investigate or prosecute any alcohol or drug abuse patient.[facility] CenterIn the event this information is protected by the Federal Confidentiality of Alcohol and Drug Abuse Patient Records regulations: The Federal rules restrict any use of the information to criminally investigate or prosecute any alcohol or drug abuse patient.[facility] CenterIn the event this information is protected by the Federal Confidentiality of Alcohol and Drug Abuse Patient Records regulations: The Federal rules restrict any use of the information to criminally investigate or prosecute any alcohol or drug abuse patient.[facility] CenterIn the event this information is protected by the Federal Confidentiality of Alcohol and Drug Abuse Patient Records regulations: The Federal rules restrict any use of the information to criminally investigate or prosecute any alcohol or drug abuse patient.[facility] CenterIn the event this information is protected by the Federal Confidentiality of Alcohol and Drug Abuse Patient Records regulations: The Federal rules restrict any use of the information to criminally investigate or prosecute any alcohol or drug abuse patient.[facility] CenterIn the event this information is protected by the Federal Confidentiality of Alcohol and Drug Abuse Patient Records regulations: The Federal rules restrict any use of the information to criminally investigate or prosecute any alcohol or drug abuse patient.[facility] CenterIn the event this information is protected by the Federal Confidentiality of Alcohol and Drug Abuse Patient Records regulations: The Federal rules restrict any use of the information to criminally investigate or prosecute any alcohol or drug abuse patient.[facility] CenterIn the event this information is protected by the Federal Confidentiality of Alcohol and Drug Abuse Patient Records regulations: The Federal rules restrict any use of the information to criminally investigate or prosecute any alcohol or drug abuse patient.[facility]In the event this information is protected by the Federal Confidentiality of Alcohol and Drug Abuse Patient Records regulations: The Federal rules restrict any use of the information to criminally investigate or prosecute any alcohol or drug abuse patient.[facility] CenterIn the event this information is protected by the Federal Confidentiality of Alcohol and Drug Abuse Patient Records regulations: The Federal rules restrict any use of the information to criminally investigate or prosecute any alcohol or drug abuse patient.[facility] CenterIn the event this information is protected by the Federal Confidentiality of Alcohol and Drug Abuse Patient Records regulations: The Federal rules restrict any use of the information to criminally investigate or prosecute any alcohol or drug abuse patient.[facility]In the event this information is protected by the Federal Confidentiality of Alcohol and Drug Abuse Patient Records regulations: The Federal rules restrict any use of the information to criminally investigate or prosecute any alcohol or drug abuse patient.[facility] CenterIn the event this information is protected by the Federal Confidentiality of Alcohol and Drug Abuse Patient Records regulations: The Federal rules restrict any use of the information to criminally investigate or prosecute any alcohol or drug abuse patient.[facility]In the event this information is protected by the Federal Confidentiality of Alcohol and Drug Abuse Patient Records regulations: The Federal rules restrict any use of the information to criminally investigate or prosecute any alcohol or drug abuse patient.[facility] CenterIn the event this information is protected by the Federal Confidentiality of Alcohol and Drug Abuse Patient Records regulations: The Federal rules restrict any use of the information to criminally investigate or prosecute any alcohol or drug abuse patient.[facility] CenterIn the event this information is protected by the Federal Confidentiality of Alcohol and Drug Abuse Patient Records regulations: The Federal rules restrict any use of the information to criminally investigate or prosecute any alcohol or drug abuse patient.[facility]In the event this information is protected by the Federal Confidentiality of Alcohol and Drug Abuse Patient Records regulations: The Federal rules restrict any use of the information to criminally investigate or prosecute any alcohol or drug abuse patient.[facility]In the event this information is protected by the Federal Confidentiality of Alcohol and Drug Abuse Patient Records regulations: The Federal rules restrict any use of the information to criminally investigate or prosecute any alcohol or drug abuse patient.[facility]In the event this information is protected by the Federal Confidentiality of Alcohol and Drug Abuse Patient Records regulations: The Federal rules restrict any use of the information to criminally investigate or prosecute any alcohol or drug abuse patient.[facility]In the event this information is protected by the Federal Confidentiality of Alcohol and Drug Abuse Patient Records regulations: The Federal rules restrict any use of the information to criminally investigate or prosecute any alcohol or drug abuse patient.[facility]In the event this information is protected by the Federal Confidentiality of Alcohol and Drug Abuse Patient Records regulations: The Federal rules restrict any use of the information to criminally investigate or prosecute any alcohol or drug abuse patient.[facility]In the event this information is protected by the Federal Confidentiality of Alcohol and Drug Abuse Patient Records regulations: The Federal rules restrict any use of the information to criminally investigate or prosecute any alcohol or drug abuse patient.[facility]In the event this information is protected by the Federal Confidentiality of Alcohol and Drug Abuse Patient Records regulations: The Federal rules restrict any use of the information to criminally investigate or prosecute any alcohol or drug abuse patient.[facility]In the event this information is protected by the Federal Confidentiality of Alcohol and Drug Abuse Patient Records regulations: The Federal rules restrict any use of the information to criminally investigate or prosecute any alcohol or drug abuse patient.[facility]In the event this information is protected by the Federal Confidentiality of Alcohol and Drug Abuse Patient Records regulations: The Federal rules restrict any use of the information to criminally investigate or prosecute any alcohol or drug abuse patient.[facility]In the event this information is protected by the Federal Confidentiality of Alcohol and Drug Abuse Patient Records regulations: The Federal rules restrict any use of the information to criminally investigate or prosecute any alcohol or drug abuse patient.[facility]In the event this information is protected by the Federal Confidentiality of Alcohol and Drug Abuse Patient Records regulations: The Federal rules restrict any use of the information to criminally investigate or prosecute any alcohol or drug abuse patient.[facility]In the event this information is protected by the Federal Confidentiality of Alcohol and Drug Abuse Patient Records regulations: The Federal rules restrict any use of the information to criminally investigate or prosecute any alcohol or drug abuse patient.[facility]In the event this information is protected by the Federal Confidentiality of Alcohol and Drug Abuse Patient Records regulations: The Federal rules restrict any use of the information to criminally investigate or prosecute any alcohol or drug abuse patient.[facility]In the event this information is protected by the Federal Confidentiality of Alcohol and Drug Abuse Patient Records regulations: The Federal rules restrict any use of the information to criminally investigate or prosecute any alcohol or drug abuse patient.[facility]In the event this information is protected by the Federal Confidentiality of Alcohol and Drug Abuse Patient Records regulations: The Federal rules restrict any use of the information to criminally investigate or prosecute any alcohol or drug abuse patient.[facility]In the event this information is protected by the Federal Confidentiality of Alcohol and Drug Abuse Patient Records regulations: The Federal rules restrict any use of the information to criminally investigate or prosecute any alcohol or drug abuse patient.[facility]In the event this information is protected by the Federal Confidentiality of Alcohol and Drug Abuse Patient Records regulations: The Federal rules restrict any use of the information to criminally investigate or prosecute any alcohol or drug abuse patient.[facility]In the event this information is protected by the Federal Confidentiality of Alcohol and Drug Abuse Patient Records regulations: The Federal rules restrict any use of the information to criminally investigate or prosecute any alcohol or drug abuse patient.[facility]In the event this information is protected by the Federal Confidentiality of Alcohol and Drug Abuse Patient Records regulations: The Federal rules restrict any use of the information to criminally investigate or prosecute any alcohol or drug abuse patient.[facility]In the event this information is protected by the Federal Confidentiality of Alcohol and Drug Abuse Patient Records regulations: The Federal rules restrict any use of the information to criminally investigate or prosecute any alcohol or drug abuse patient.[facility]In the event this information is protected by the Federal Confidentiality of Alcohol and Drug Abuse Patient Records regulations: The Federal rules restrict any use of the information to criminally investigate or prosecute any alcohol or drug abuse patient.[facility]In the event this information is protected by the Federal Confidentiality of Alcohol and Drug Abuse Patient Records regulations: The Federal rules restrict any use of the information to criminally investigate or prosecute any alcohol or drug abuse patient.[facility]In the event this information is protected by the Federal Confidentiality of Alcohol and Drug Abuse Patient Records regulations: The Federal rules restrict any use of the information to criminally investigate or prosecute any alcohol or drug abuse patient.[facility]In the event this information is protected by the Federal Confidentiality of Alcohol and Drug Abuse Patient Records regulations: The Federal rules restrict any use of the information to criminally investigate or prosecute any alcohol or drug abuse patient.[facility]In the event this information is protected by the Federal Confidentiality of Alcohol and Drug Abuse Patient Records regulations: The Federal rules restrict any use of the information to criminally investigate or prosecute any alcohol or drug abuse patient.[facility]In the event this information is protected by the Federal Confidentiality of Alcohol and Drug Abuse Patient Records regulations: The Federal rules restrict any use of the information to criminally investigate or prosecute any alcohol or drug abuse patient.[facility]In the event this information is protected by the Federal Confidentiality of Alcohol and Drug Abuse Patient Records regulations: The Federal rules restrict any use of the information to criminally investigate or prosecute any alcohol or drug abuse patient.[facility]In the event this information is protected by the Federal Confidentiality of Alcohol and Drug Abuse Patient Records regulations: The Federal rules restrict any use of the information to criminally investigate or prosecute any alcohol or drug abuse patient.[facility]In the event this information is protected by the Federal Confidentiality of Alcohol and Drug Abuse Patient Records regulations: The Federal rules restrict any use of the information to criminally investigate or prosecute any alcohol or drug abuse patient.[facility]In the event this information is protected by the Federal Confidentiality of Alcohol and Drug Abuse Patient Records regulations: The Federal rules restrict any use of the information to criminally investigate or prosecute any alcohol or drug abuse patient.[facility]In the event this information is protected by the Federal Confidentiality of Alcohol and Drug Abuse Patient Records regulations: The Federal rules restrict any use of the information to criminally investigate or prosecute any alcohol or drug abuse patient.[facility]In the event this information is protected by the Federal Confidentiality of Alcohol and Drug Abuse Patient Records regulations: The Federal rules restrict any use of the information to criminally investigate or prosecute any alcohol or drug abuse patient.[facility]In the event this information is protected by the Federal Confidentiality of Alcohol and Drug Abuse Patient Records regulations: The Federal rules restrict any use of the information to criminally investigate or prosecute any alcohol or drug abuse patient.[facility]In the event this information is protected by the Federal Confidentiality of Alcohol and Drug Abuse Patient Records regulations: The Federal rules restrict any use of the information to criminally investigate or prosecute any alcohol or drug abuse patient.[facility]In the event this information is protected by the Federal Confidentiality of Alcohol and Drug Abuse Patient Records regulations: The Federal rules restrict any use of the information to criminally investigate or prosecute any alcohol or drug abuse patient.[facility]In the event this information is protected by the Federal Confidentiality of Alcohol and Drug Abuse Patient Records regulations: The Federal rules restrict any use of the information to criminally investigate or prosecute any alcohol or drug abuse patient.[facility]In the event this information is protected by the Federal Confidentiality of Alcohol and Drug Abuse Patient Records regulations: The Federal rules restrict any use of the information to criminally investigate or prosecute any alcohol or drug abuse patient.[facility]In the event this information is protected by the Federal Confidentiality of Alcohol and Drug Abuse Patient Records regulations: The Federal rules restrict any use of the information to criminally investigate or prosecute any alcohol or drug abuse patient.[facility]In the event this information is protected by the Federal Confidentiality of Alcohol and Drug Abuse Patient Records regulations: The Federal rules restrict any use of the information to criminally investigate or prosecute any alcohol or drug abuse patient.[facility]In the event this information is protected by the Federal Confidentiality of Alcohol and Drug Abuse Patient Records regulations: The Federal rules restrict any use of the information to criminally investigate or prosecute any alcohol or drug abuse patient.[facility]In the event this information is protected by the Federal Confidentiality of Alcohol and Drug Abuse Patient Records regulations: The Federal rules restrict any use of the information to criminally investigate or prosecute any alcohol or drug abuse patient.[facility]In the event this information is protected by the Federal Confidentiality of Alcohol and Drug Abuse Patient Records regulations: The Federal rules restrict any use of the information to criminally investigate or prosecute any alcohol or drug abuse patient.[facility]In the event this information is protected by the Federal Confidentiality of Alcohol and Drug Abuse Patient Records regulations: The Federal rules restrict any use of the information to criminally investigate or prosecute any alcohol or drug abuse patient.[facility]In the event this information is protected by the Federal Confidentiality of Alcohol and Drug Abuse Patient Records regulations: The Federal rules restrict any use of the information to criminally investigate or prosecute any alcohol or drug abuse patient.[facility]In the event this information is protected by the Federal Confidentiality of Alcohol and Drug Abuse Patient Records regulations: The Federal rules restrict any use of the information to criminally investigate or prosecute any alcohol or drug abuse patient.[facility]In the event this information is protected by the Federal Confidentiality of Alcohol and Drug Abuse Patient Records regulations: The Federal rules restrict any use of the information to criminally investigate or prosecute any alcohol or drug abuse patient.[facility] CenterIn the event this information is protected by the Federal Confidentiality of Alcohol and Drug Abuse Patient Records regulations: The Federal rules restrict any use of the information to criminally investigate or prosecute any alcohol or drug abuse patient.[facility] [facility] CenterIn the event this information is protected by the Federal Confidentiality of Alcohol and Drug Abuse Patient Records regulations: The Federal rules restrict any use of the information to criminally investigate or prosecute any alcohol or drug abuse patient.[facility] CenterIn the event this information is protected by the Federal Confidentiality of Alcohol and Drug Abuse Patient Records regulations: The Federal rules restrict any use of the information to criminally investigate or prosecute any alcohol or drug abuse patient.[facility] CenterIn the event this information is protected by the Federal Confidentiality of Alcohol and Drug Abuse Patient Records regulations: The Federal rules restrict any use of the information to criminally investigate or prosecute any alcohol or drug abuse patient.[facility] CenterIn the event this information is protected by the Federal Confidentiality of Alcohol and Drug Abuse Patient Records regulations: The Federal rules restrict any use of the information to criminally investigate or prosecute any alcohol or drug abuse patient.[facility] CenterIn the event this information is protected by the Federal Confidentiality of Alcohol and Drug Abuse Patient Records regulations: The Federal rules restrict any use of the information to criminally investigate or prosecute any alcohol or drug abuse patient.[facility] CenterIn the event this information is protected by the Federal Confidentiality of Alcohol and Drug Abuse Patient Records regulations: The Federal rules restrict any use of the information to criminally investigate or prosecute any alcohol or drug abuse patient.[facility] CenterIn the event this information is protected by the Federal Confidentiality of Alcohol and Drug Abuse Patient Records regulations: The Federal rules restrict any use of the information to criminally investigate or prosecute any alcohol or drug abuse patient.[facility] CenterIn the event this information is protected by the Federal Confidentiality of Alcohol and Drug Abuse Patient Records regulations: The Federal rules restrict any use of the information to criminally investigate or prosecute any alcohol or drug abuse patient.[facility] CenterIn the event this information is protected by the Federal Confidentiality of Alcohol and Drug Abuse Patient Records regulations: The Federal rules restrict any use of the information to criminally investigate or prosecute any alcohol or drug abuse patient.[facility] CenterIn the event this information is protected by the Federal Confidentiality of Alcohol and Drug Abuse Patient Records regulations: The Federal rules restrict any use of the information to criminally investigate or prosecute any alcohol or drug abuse patient.[facility] CenterIn the event this information is protected by the Federal Confidentiality of Alcohol and Drug Abuse Patient Records regulations: The Federal rules restrict any use of the information to criminally investigate or prosecute any alcohol or drug abuse patient.[facility] CenterIn the event this information is protected by the Federal Confidentiality of Alcohol and Drug Abuse Patient Records regulations: The Federal rules restrict any use of the information to criminally investigate or prosecute any alcohol or drug abuse patient.[facility] CenterIn the event this information is protected by the Federal Confidentiality of Alcohol and Drug Abuse Patient Records regulations: The Federal rules restrict any use of the information to criminally investigate or prosecute any alcohol or drug abuse patient.[facility] CenterIn the event this information is protected by the Federal Confidentiality of Alcohol and Drug Abuse Patient Records regulations: The Federal rules restrict any use of the information to criminally investigate or prosecute any alcohol or drug abuse patient.[facility] CenterIn the event this information is protected by the Federal Confidentiality of Alcohol and Drug Abuse Patient Records regulations: The Federal rules restrict any use of the information to criminally investigate or prosecute any alcohol or drug abuse patient.[facility] CenterIn the event this information is protected by the Federal Confidentiality of Alcohol and Drug Abuse Patient Records regulations: The Federal rules restrict any use of the information to criminally investigate or prosecute any alcohol or drug abuse patient.[facility] CenterIn the event this information is protected by the Federal Confidentiality of Alcohol and Drug Abuse Patient Records regulations: The Federal rules restrict any use of the information to criminally investigate or prosecute any alcohol or drug abuse patient.[facility] CenterIn the event this information is protected by the Federal Confidentiality of Alcohol and Drug Abuse Patient Records regulations: The Federal rules restrict any use of the information to criminally investigate or prosecute any alcohol or drug abuse patient.[facility] CenterIn the event this information is protected by the Federal Confidentiality of Alcohol and Drug Abuse Patient Records regulations: The Federal rules restrict any use of the information to criminally investigate or prosecute any alcohol or drug abuse patient.[facility] CenterIn the event this information is protected by the Federal Confidentiality of Alcohol and Drug Abuse Patient Records regulations: The Federal rules restrict any use of the information to criminally investigate or prosecute any alcohol or drug abuse patient.[facility] CenterIn the event this information is protected by the Federal Confidentiality of Alcohol and Drug Abuse Patient Records regulations: The Federal rules restrict any use of the information to criminally investigate or prosecute any alcohol or drug abuse patient.[facility] CenterIn the event this information is protected by the Federal Confidentiality of Alcohol and Drug Abuse Patient Records regulations: The Federal rules restrict any use of the information to criminally investigate or prosecute any alcohol or drug abuse patient.[facility] CenterIn the event this information is protected by the Federal Confidentiality of Alcohol and Drug Abuse Patient Records regulations: The Federal rules restrict any use of the information to criminally investigate or prosecute any alcohol or drug abuse patient.[facility] CenterIn the event this information is protected by the Federal Confidentiality of Alcohol and Drug Abuse Patient Records regulations: The Federal rules restrict any use of the information to criminally investigate or prosecute any alcohol or drug abuse patient.[facility] CenterIn the event this information is protected by the Federal Confidentiality of Alcohol and Drug Abuse Patient Records regulations: The Federal rules restrict any use of the information to criminally investigate or prosecute any alcohol or drug abuse patient.[facility] CenterIn the event this information is protected by the Federal Confidentiality of Alcohol and Drug Abuse Patient Records regulations: The Federal rules restrict any use of the information to criminally investigate or prosecute any alcohol or drug abuse patient.[facility] CenterIn the event this information is protected by the Federal Confidentiality of Alcohol and Drug Abuse Patient Records regulations: The Federal rules restrict any use of the information to criminally investigate or prosecute any alcohol or drug abuse patient.[facility] CenterIn the event this information is protected by the Federal Confidentiality of Alcohol and Drug Abuse Patient Records regulations: The Federal rules restrict any use of the information to criminally investigate or prosecute any alcohol or drug abuse patient.[facility] CenterIn the event this information is protected by the Federal Confidentiality of Alcohol and Drug Abuse Patient Records regulations: The Federal rules restrict any use of the information to criminally investigate or prosecute any alcohol or drug abuse patient.[facility] CenterIn the event this information is protected by the Federal Confidentiality of Alcohol and Drug Abuse Patient Records regulations: The Federal rules restrict any use of the information to criminally investigate or prosecute any alcohol or drug abuse patient.[facility] CenterIn the event this information is protected by the Federal Confidentiality of Alcohol and Drug Abuse Patient Records regulations: The Federal rules restrict any use of the information to criminally investigate or prosecute any alcohol or drug abuse patient.[facility] CenterIn the event this information is protected by the Federal Confidentiality of Alcohol and Drug Abuse Patient Records regulations: The Federal rules restrict any use of the information to criminally investigate or prosecute any alcohol or drug abuse patient.[facility] CenterIn the event this information is protected by the Federal Confidentiality of Alcohol and Drug Abuse Patient Records regulations: The Federal rules restrict any use of the information to criminally investigate or prosecute any alcohol or drug abuse patient.[facility] CenterIn the event this information is protected by the Federal Confidentiality of Alcohol and Drug Abuse Patient Records regulations: The Federal rules restrict any use of the information to criminally investigate or prosecute any alcohol or drug abuse patient.[facility] CenterIn the event this information is protected by the [facility] Confidentiality of Alcohol and Drug Abuse Patient Records regulations: The Federal rules restrict any use of the information to criminally investigate or prosecute any alcohol or drug abuse patient.[facility] CenterIn the event this information is protected by the Federal Confidentiality of Alcohol and Drug Abuse Patient Records regulations: The Federal rules restrict any use of the information to criminally investigate or prosecute any alcohol or drug abuse patient.[facility] Reason for Visit (unrecogniz ed section and content) Reason Comments Established Patient Specialty Diagnoses / Procedures Referred By Carrie t Referred To Contact LABORATORY MEDICINE Diagnoses NA Procedures NA Lab [facility] [address] [place] [address] Referral ID Status Reason Start Date Expiration Date Visits Re quested Visits Authorized [id number] 1 1 Reason Comments Chemotherapy Treatment Specialty Diagnoses / Procedures Referred By Contac t Referred To Contact Diagnoses 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) Procedures Paclitaxel Protein-Bound IV [place] [address] [place] [address] [facility] [address] [place] [address] Referral ID Status Reason Start Date Expiration Date V isits Requested Visits Authorized [id number] Authorized 10/30/2023 11/18/2024 99 99 Specialty Diagnoses / Procedures Referred By Contac t Referred To Contact HEMATOLOGY/ONCOLOGY Diagnoses NA Procedures NA Adi [facility] [address] [place] [address] Referral ID Status Reason Start Date Expiration Date Visits Re quested Visits Authorized [id number] 1 1 Reason Comments Recheck Specialty Diagnoses / Procedures Referred By Contac t Referred To Contact Radiation Oncology / RADIATION ONCOLOGY Diagnoses Secondary and unspecified malignant neoplasm of intrathoracic lymph nodes Location: W-ON TREATMENT VISIT Activity: ON TREATMENT VISIT Procedures OFFICE/OUTPATIENT ESTABLISHED HIGH MDM 40 MIN ON TREATMENT VISIT [facility] Medical Vimal Stoner MD [address] [facility] [place] [address] Referral ID Status Reason Start Date Expiration Date V isits Requested Visits Authorized [id number] Authorized 10/30/2023 11/18/2024 99 99 Reason Comments Patient Education For radiation treatm ent to left lower lung Reason Comments New Patient Specialty Diagnoses / Procedures Referred By Contac t Referred To Contact RADIATION ONCOLOGY Diagnoses Secondary and unspecified malignant neoplasm of intrathoracic lymph nodes STAGE III LUNG CANCER Procedures OFFICE/OUTPATIENT ESTABLISHED HIGH MDM 40 MIN RADIATION THERAPY Center, [facility] Medical Radt [facility] [address] [place] [address] Referral ID Status Reason Start Date Expiration Date V isits Requested Visits Authorized [id number] Authorized 10/30/2023 10/29/2024 999 999 Reason Comments Establish Care 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 Specialty Diagnoses / Procedures Referred By Contac t Referred To Contact Internal Medicine / INTERNAL MEDICINE Diagnoses Medicare Wellness Procedures 4C [place] Self Jose Brennan APRN.HUMAN PERFORMANCE PROFESSOR [address] [place] [address] Referral ID Status Reason Start Date Expiration Date V isits Requested Visits Authorized [id number] Closed Financial Clearance Required - OON Payor 01/10/2023 04/10/2023 1 1 Reason Comments Follow Up Medication Reason Comments Refill Request Reason Comments F/U 3 Month Reason Comments Pain had 4 episodes of pa in/body aches all over, chills but no fever, and weakness for about 24 hours after these episodes. Reason Comments 4 mo follow up Specialty Diagnoses / Procedures Referred By Contac t Referred To Contact Internal Medicine / INTERNAL MEDICINE Diagnoses Secondary and unspecified malignant neoplasm of intrathoracic lymph nodes Follow-up exam 4 month follow up Procedures OFFICE/OUTPATIENT [facility] MDM [address] [place], [place] [address] Medical Jose Brennan APRN.[facility] [address] [place] [address] Referral ID Status Reason Start Date Expiration Date Visits Re quested Visits Authorized [id number] Closed 10/30/2023 10/29/2024 1 1 Reason Comments Consult Reason Onset Date Comments Simulation Request Form 11/14/2023 Reason Comments Patient Education Specialty Diagnoses / Procedures Referred By Contac t Referred To Contact Radiation Oncology / RADIATION ONCOLOGY Diagnoses Lung cancer (HCC) Location: W-NURSING Activity: PT. EDUCATION Procedures OFFICE/OUTPATIENT [facility] 60 MINUTES NURSE VISIT Self Wstr, Nurse Radt [facility] [address] [place] [address] Referral ID Status Reason Start Date Expiration Date Visits Re quested Visits Authorized [id number] Closed 10/29/2023 04/26/2024 1 1 Reason Comments Care Coordination Introduction Specialty Diagnoses / Procedures Referred By Contac t Referred To Contact Hematology / HEMATOLOGY/ONCOLOGY Diagnoses chemo education phone call Procedures PROVIDER SPECIALTY PHONE CALL Self Wstr, Fan Mail Editor [facility] [address] [place] [address] Referral ID Status Reason Start Date Expiration Date V isits Requested Visits Authorized [id number] Authorized 10/30/2023 11/18/2024 99 99 Specialty Diagnoses / Procedures Referred By Contac t Referred To Contact Diagnoses 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) Procedures CARBOPLATIN INJECTION INJECTION, PEMETREXED, NOT OTHERWISE SPECIFIED, 10 MG [place] [address] [place] [address] Adi [facility] [address] [place] [address] Referral ID Status Reason Start Date Expiration Date V isits Requested Visits Authorized [id number] Authorized 11/19/2023 11/18/2024 99 99 Reason Comments Radiotherapy On-treatment Visit Specialty Diagnoses / Procedures Referred By Contac t Referred To Contact RADIATION ONCOLOGY Diagnoses 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) IMRT [address] plus sim Procedures CT SIM PLANNING RADIATION ONCOLOGY THER RAD SIMULAJ-AIDED FIELD SETTING COMPLEX INTENSITY MODULATED RADIATION TX DLVR COMPLEX IMRT 35 FX plus sim Vimal Stoner MD [address] [place] [address] [facility] [address] [place] [address] Referral ID Status Reason Start Date Expiration Date Visits Requested Visits Authorized [id number] Authorized PCP Requested Referral 10/29/2023 04/26/2024 36 36 Reason Comments Irritable Anxiety With recent ca dx. Reason Comments Care Coordination CYCLE 1/DAY 1 POST T REATMENT CALL Specialty Diagnoses / Procedures Referred By Contac t Referred To Contact Radiation Oncology / RADIATION ONCOLOGY Diagnoses Secondary and unspecified malignant neoplasm of intrathoracic lymph nodes Location: W-ON TREATMENT VISIT Activity: ON TREATMENT VISIT Procedures OFFICE/OUTPATIENT ESTABLISHED HIGH MDM 40 MIN [facility] Medical Josephine Power MD [address] [place] [address] Referral ID Status Reason Start Date Expiration Date V isits Requested Visits Authorized [id number] Authorized 10/30/2023 11/18/2024 99 99 Specialty Diagnoses / Procedures Referred By Contac t Referred To Contact Hematology/Oncology / HEMATOLOGY/ONCOLOGY Diagnoses Secondary and unspecified malignant neoplasm of intrathoracic lymph nodes OV/LABS TODAY/ CHEMO 12/14* Procedures OFFICE/OUTPATIENT ESTABLISHED HIGH MDM 40 MIN EST PATIENT W/[place] [address] [place] [id number] [place] [address] [place] [id number] Referral ID Status Reason Start Date Expiration Date Visits Re quested Visits Authorized [id number] Closed 10/30/2023 11/18/2024 1 1 Referral ID Status Reason Start Date Expiration Date V isits Requested Visits Authorized [id number] Pending Review 11/19/2023 11/18/2024 99 99 Reason Comments Headache Specialty Diagnoses / Procedures Referred By Contac t Referred To Contact Radiation Oncology / RADIATION ONCOLOGY Diagnoses Location: W-ON TREATMENT VISIT Activity: ON TREATMENT VISIT Procedures ON TREATMENT VISIT Jose Brennan APRN.[facility] [address] [place] [address] Vimal Stoner MD [address] [place] [address] Referral ID Status Reason Start Date Expiration Date Visits Re quested Visits Authorized [id number] Closed 12/17/2023 09/07/2024 1 1 Reason Comments Social Work Services Specialty Diagnoses / Procedures Referred By Contac t Referred To Contact Radiation Oncology / RADIATION ONCOLOGY Diagnoses 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) Location: W-ON TREATMENT VISIT Activity: ON TREATMENT VISIT Procedures OFFICE/OUTPATIENT ESTABLISHED HIGH MDM 40 MIN [facility] Vimal Stoner MD [address] [place] [address] Referral ID Status Reason Start Date Expiration Date Visits Re quested Visits Authorized [id number] Closed 10/30/2023 11/18/2024 1 1 Reason Comments Benefits Investigation Referral ID Status Reason Start Date Expiration Date Visits Re quested Visits Authorized [id number] Closed 10/30/2023 11/18/2024 1 1 Reason Comments Patient Education Discharge instructio ns-Completed radiation Reason Comments Follow Up Reason Comments Recheck headaches Specialty Diagnoses / Procedures Referred By Contac t Referred To Contact Internal Medicine / INTERNAL MEDICINE Diagnoses Secondary and unspecified malignant neoplasm of intrathoracic lymph nodes Chronic nonintractable headache, unspecified headache type Follow-up exam headache recheck Procedures OFFICE/OUTPATIENT ESTABLISHED HIGH MDM 40 MIN 4C EST Self Jose Brennan APRN.HUMAN PERFORMANCE PROFESSOR [address] [place] [address] Referral ID Status Reason Start Date Expiration Date Visits Re quested Visits Authorized [id number] Closed 10/30/2023 11/18/2024 1 1 Reason Comments Care Coordination Change in Treatment Reason Comments Established Patient Specialty Diagnoses / Procedures Referred By Contac t Referred To Contact Hematology/Oncology / HEMATOLOGY/ONCOLOGY Diagnoses Secondary and unspecified malignant neoplasm of intrathoracic lymph nodes OV/LABS TODAY/ CHEMO 12/14* Procedures OFFICE/OUTPATIENT ESTABLISHED HIGH MDM 40 MIN EST PATIENT W/[place] [address] [place] [address] [place] [address] [place] [address] Specialty Diagnoses / Procedures Referred By Contac t Referred To Contact Radiation Oncology / RADIATION ONCOLOGY Diagnoses Secondary and unspecified malignant neoplasm of intrathoracic lymph nodes Location: W-ON TREATMENT VISIT Activity: ON TREATMENT VISIT Procedures OFFICE/OUTPATIENT ESTABLISHED HIGH MDM 40 MIN [facility] Vimal Stoner MD [address] [facility] [place] [address] Specialty Diagnoses / Procedures Referred By Contac t Referred To Contact CT IMAGING Diagnoses Malignant neoplasm of unspecified part of unspecified bronchus or lung (HCC) Procedures CT CHEST W IVCON DIAGNOSTIC COMPUTED TOMOGRAPHY THORAX W/[place] [address] [place] [address] [place] [address] Referral ID Status Reason Start Date Expiration Date V isits Requested Visits Authorized [id number] Closed Auto-Generate d Referral 10/30/2023 11/18/2024 1 1 Specialty Diagnoses / Procedures Referred By Contac t Referred To Contact Hematology / HEMATOLOGY/ONCOLOGY Diagnoses chemo education phone call Procedures PROVIDER SPECIALTY PHONE CALL Self Ws, Fan Mail Editor [facility] [address] [place] [address] Specialty Diagnoses / Procedures Referred By Contac t Referred To Contact Internal Medicine / INTERNAL MEDICINE Diagnoses Secondary and unspecified malignant neoplasm of intrathoracic lymph nodes Follow-up exam 4 mo follow up Procedures OFFICE/OUTPATIENT ESTABLISHED HIGH MDM 40 MIN 4C EST Jose Brennan APRN.HUMAN PERFORMANCE PROFESSOR [address] [place] [address] Jose Brennan APRN.[facility] [address] [place] [address] Referral ID Status Reason Start Date Expiration Date Visits Re quested Visits Authorized [id number] Closed 10/30/2023 11/18/2024 1 1 Specialty Diagnoses / Procedures Referred By Contac t Referred To Contact Diagnoses 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 [address] [place] [address] Reason Comments Care Coordination CYCLE 1/DAY 1 POST T REATMENT CALL Reason Comments Erroneous encounter-disregard Reason Comments Future Appointment Reason Comments Fan Mail Editor - Other Toxicity Check Reason Onset Date Comments Refill Request 04/14/2024 Reason Comments Patient Update Back pain Reason Comments Flank Pain right side for about 3-4 weeks worse in the last 2 weeks Specialty Diagnoses / Procedures Referred By Contac t Referred To Contact Internal Medicine / INTERNAL MEDICINE Diagnoses Right hip pain right side hip pain Procedures OFFICE/OUTPATIENT ESTABLISHED HIGH MDM 40 MIN 4C EST Self Jose Brennan APRN.HUMAN PERFORMANCE PROFESSOR [address] [place] [address] Referral ID Status Reason Start Date Expiration Date V isits Requested Visits Authorized [id number] Denied Patient Cleared - Admin/Chairm an/Director advise to proceed or did not respond 05/18/2024 08/16/2024 1 0 Reason Comments Established Patient OV, labs, treatment 05/31. Increase in pain and weakness in arms and legs. reports lots of ibuprofen 4 every 3-4 hours, also taking naproxen, aleve. 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) [C77.1] Procedures [place] [address] [place] [address] [facility] [address] [place] [address] Referral ID Status Reason Start Date Expiration Date Visits Re quested Visits Authorized [id number] Closed 05/31/2024 08/29/2024 1 1 Reason Comments Patient Update Reason Comments AVS 06/04/24 - BX Reason Comments Fan Mail Editor - ED Follow Up Reason Comments Care Coordination Update to [facility] and nee d for testing Specialty Diagnoses / Procedures Referred By Contac t Referred To Contact Radiology Diagnoses Dyspnea, unspecified type Procedures XR CHEST PA+LAT 2 VIEWS Anne-Marie Constantino [address] [place] [address] [facility] DIAGNOSTIC RADIOLOGY [address] [place] [address] [place] [address] Referral ID Status Reason Start Date Expiration Date Visits Re quested Visits Authorized [id number] Closed 06/21/2024 06/21/2025 1 1 Reason Onset Date Comments Recheck Rash on face and VA h as been treating it was ketoconazole shampoo and cream Immunizations 07/19/2024 Flu vaccination Specialty Diagnoses / Procedures Referred By Carrie kaur Referred To Contact INTERNAL MEDICINE Diagnoses n/a Procedures n/a Intm [facility] [address] [place] [address] Referral ID Status Reason Start Date Expiration Date Visits Re quested Visits Authorized [id number] 1 1 Reason Comments Fan Mail Editor - Other Foundation One Testing Reason Onset Date Comments Population Health Navigation Outreach 08/03/2024 [facility] Reason Comments Fan Mail Editor - Other Change in Treat ment Referral ID Status Reason Start Date Expiration Date Visits Re quested Visits Authorized [id number] 1 1 Reason Comments AVS Reason Comments Care Coordination Specialty Diagnoses / Procedures Referred By Carrie kaur Referred To Contact Diagnoses 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) Procedures Paclitaxel Protein-Bound [place] [address] [place] [address] [facility] [address] [place] [address] Reason Onset Date Comments Refill Request 08/16/2024 Specialty Diagnoses / Procedures Referred By Carrie kaur Referred To Contact Diagnoses 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) Procedures [id number]-Bhkwvpshbt Protein-Bound IV [place] [address] [place] [address] [facility] [address] [place] [address] Specialty Diagnoses / Procedures Referred By Contac t Referred To Contact Diagnoses 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) Procedures [id number]-Uaqpslfxsl Protein-Bound IV [place] [address] [place] [id number] [facility] [address] [place] [address] Reason Comments Medication Problem Reason Onset Date Comments Refill Request 10/06/2024 Reason Comments Care Coordination Cold symptoms Specialty Diagnoses / Procedures Referred By Katerineac t Referred To Contact Hematology / HEMATOLOGY/ONCOLOGY Diagnoses chemo education phone call Procedures PROVIDER SPECIALTY PHONE CALL [facility], Fan Mail Editor [facility] [address] [place] [address] Phone: tel: fax: Reason Onset Date Comments Refill Request 11/04/2024 Specialty Diagnoses / Procedures [facility] Referred To Contact Diagnoses 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) Procedures PACLITAXEL PROTEIN BOUND P8791-Nrhykuzqws Protein-Bound [place] - [place] [address] [place] [id number] Phone: tel: fax: Hematology/Oncology [address] [place] [address] Phone: tel: fax: Referral ID Status Reason Start Date Expiration Date V isits Requested Visits Authorized [id number] Authorized 10/30/2023 12/20/2024 99 99 Reason Comments Radiology NM Specialty Diagnoses / Procedures Referred By Carrie t Referred To Contact MOLECULAR & FUNCTIONAL IMAGING Diagnoses 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) Procedures NM PET/CT SKULL-THIGH SUBSEQUENT PET IMAGING CT ATTENUATION SKULL B[place] [address] [place] [id number] Phone: tel: fax: Molecular Imaging [address] [place], [place] [id number] Phone: tel: Referral ID Status Reason Start Date Expiration Date V isits Requested Visits Authorized [id number] Closed Auto-Generate d Referral 06/23/2024 12/20/2024 2 2 Specialty Diagnoses / Procedures Referred By Contac t Referred To Contact Hematology/Oncology / HEMATOLOGY/ONCOLOGY Diagnoses Secondary malignant neoplasm of bone Procedures OFFICE/OUTPATIENT ESTABLISHED HIGH MDM 40 MIN Roegr Dorsey MD [address] [facility] [place] [address] Phone: tel: fax: [place] [address] [place] [address] Phone: tel: fax: Referral ID Status Reason Start Date Expiration Date Visits Re quested Visits Authorized [id number] Closed 06/18/2024 12/20/2024 1 1 Reason Comments Care Coordination Change in Treatment Reason Comments Cough x 3 week and was cliff ated for a sinus infection due to green sputum Treated with Augmentin. Reason Comments F/U 6 months states hurting all o abdirahman and pain is interfering with ambulation Specialty Diagnoses / Procedures Referred By Contac t Referred To Contact Internal Medicine / INTERNAL MEDICINE Diagnoses 6 month follow up Procedures 4C EST Jose Brennan APRN.HUMAN PERFORMANCE PROFESSOR [address] [place] [address] Phone: tel: fax: Jose Brennan APRN.HUMAN PERFORMANCE PROFESSOR [address] [place] [address] Phone: tel: fax: Referral ID Status Reason Start Date Expiration Date V isits Requested Visits Authorized [id number] New Request 01/17/2025 04/17/2025 1 1 Reason Onset Date Comments Results 11/19/2024 Reason Comments supplies returned Reason Comments Social Work Services PET Scan Coverage Reason Comments Recheck discuss x-raysfeels that duloxetine 60 mg is causing GI upset. Reason Comments Social Work Services Scheduling Request Care Teams (unrecognized sec tion and content) Program Director Cable Television Relationship Specialty Start Date End Date Jose Brennan APRN.HUMAN PERFORMANCE PROFESSOR [facility] [place] [address] PCP - General Internal Medicine 01/10/23 Program Director Cable Television Relationship Specialty Start Date End Date Jose Brennan APRN.HUMAN PERFORMANCE PROFESSOR [address] [place] [address] PCP - General Internal Medicine 01/10/23 Program Director Cable Television Relationship Specialty Start Date End Date Jose Brennan APRN.HUMAN PERFORMANCE PROFESSOR [address] [place] [address] PCP - General Internal Medicine 01/10/23 Program Director Cable Television Relationship Specialty Start Date End Date Jose Brennan APRN.HUMAN PERFORMANCE PROFESSOR [address] [place] [address] PCP - General Internal Medicine 01/10/23 Program Director Cable Television Relationship Specialty Start Date End Date Jose Brennan APRN.HUMAN PERFORMANCE PROFESSOR [address] [place] [address] PCP - General Internal Medicine 01/10/23 Program Director Cable Television Relationship Specialty Start Date End Date Jose Brennan APRN.HUMAN PERFORMANCE PROFESSOR [address] [place] [address] PCP - General Internal Medicine 01/10/23 Program Director Cable Television Relationship Specialty Start Date End Date Jose Brennan APRN.HUMAN PERFORMANCE PROFESSOR [address] [place] [address] PCP - General Internal Medicine 01/10/23 Vimal Stoner MD [address] [place] [address] Physician Radiation Oncology 11/07/23 Program Director Cable Television Relationship Specialty Start Date End Date Jose Brennan APRN.HUMAN PERFORMANCE PROFESSOR [address] [place] [address] PCP - General Internal Medicine 01/10/23 Vimal Stoner MD [address] [place] [address] Physician Radiation Oncology 11/07/23 Program Director Cable Television Relationship Specialty Start Date End Date Jose Brennan APRN.HUMAN PERFORMANCE PROFESSOR [facility] [place] [address] PCP - General Internal Medicine 01/10/23 Vimal Stoner MD [address] [place] [address] Physician Radiation Oncology 11/07/23 Program Director Cable Television Relationship Specialty Start Date End Date Jose Brennan APRN.HUMAN PERFORMANCE PROFESSOR [facility] [place] [address] PCP - General Internal Medicine 01/10/23 Vimal Stoner MD [address] [place] [address] Physician Radiation Oncology 11/07/23 Program Director Cable Television Relationship Specialty Start Date End Date Jose Brennan APRN.HUMAN PERFORMANCE PROFESSOR [address] [place] [address] PCP - General Internal Medicine 01/10/23 Vimal Stoner MD [address] [place] [address] Physician Radiation Oncology 11/07/23 Program Director Cable Television Relationship Specialty Start Date End Date Jose Brennan APRN.HUMAN PERFORMANCE PROFESSOR [address] [place] [address] PCP - General Internal Medicine 01/10/23 Vimal Stoner MD [address] [place] [address] Physician Radiation Oncology 11/07/23 Program Director Cable Television Relationship Specialty Start Date End Date Jose Brennan APRN.HUMAN PERFORMANCE PROFESSOR [address] [place] [address] PCP - General Internal Medicine 01/10/23 Vimal Stoner MD [address] [place] [address] Physician Radiation Oncology 11/07/23 Program Director Cable Television Relationship Specialty Start Date End Date Jose Brennan APRN.HUMAN PERFORMANCE PROFESSOR [address] [place] [address] PCP - General Internal Medicine 01/10/23 Vimal Stoner MD [address] [place] [address] Physician Radiation Oncology 11/07/23 Roger Dorsey MD [address] [place] [address] Hematology/Oncology 11/19/23 Brittani Aguila, JAMEY [address] [place] [address] Hematology/Oncology 11/19/23 Program Director Cable Television Relationship Specialty Start Date End Date Jose Brennan APRN.HUMAN PERFORMANCE PROFESSOR [address] [facility] [address] PCP - General Internal Medicine 01/10/23 Vimal Stoner MD [address] [place] [address] Physician Radiation Oncology 11/07/23 Roger Dorsey MD [address] [place] [address] Hematology/Oncology 11/19/23 Brittani Aguila, JAMEY [address] [place] [address] Hematology/Oncology 11/19/23 Program Director Cable Television Relationship Specialty Start Date End Date Jose Brnenan APRN.HUMAN PERFORMANCE PROFESSOR [address] [place] [address] PCP - General Internal Medicine 01/10/23 Vimal Stoner MD [address] [place] [address] Physician Radiation Oncology 11/07/23 Roger Dorsey MD [address] [place] [address] Hematology/Oncology 11/19/23 Brittani Aguila, JAMEY [address] [place] [address] Hematology/Oncology 11/19/23 Program Director Cable Television Relationship Specialty Start Date End Date Jose Brennan APRN.HUMAN PERFORMANCE PROFESSOR [address] [facility] [place] [address] PCP - General Internal Medicine 01/10/23 Vimal Stoner MD [address] [place] [address] Physician Radiation Oncology 11/07/23 Roger Dorsey MD [address] [place] [address] Hematology/Oncology 11/19/23 Brittani Aguila, JAMEY [address] [place] [address] Hematology/Oncology 11/19/23 Program Director Cable Television Relationship Specialty Start Date End Date Jose Brennan APRN.HUMAN PERFORMANCE PROFESSOR [address] [facility] [place] [address] PCP - General Internal Medicine 01/10/23 Vimal Stoner MD [address] [place] [address] Physician Radiation Oncology 11/07/23 Roger Dorsey MD [address] [place] [address] Hematology/Oncology 11/19/23 Brittani Aguila, JAMEY [address] [place] [address] Hematology/Oncology 11/19/23 Program Director Cable Television Relationship Specialty Start Date End Date Jose Brennan APRN.HUMAN PERFORMANCE PROFESSOR [address] [facility] [place] [address] PCP - General Internal Medicine 01/10/23 Vimal Stoner MD [address] [place] [address] Physician Radiation Oncology 11/07/23 Roger Dorsey MD [address] [place] [address] Hematology/Oncology 11/19/23 Brittani Aguila, JAMEY [address] [place] [address] Hematology/Oncology 11/19/23 Program Director Cable Television Relationship Specialty Start Date End Date Jose Brennan APRN.HUMAN PERFORMANCE PROFESSOR [address] [facility] [place] [address] PCP - General Internal Medicine 01/10/23 Vimal Stoner MD [address] [place] [address] Physician Radiation Oncology 11/07/23 Roger Dorsey MD [address] [place] [address] Hematology/Oncology 11/19/23 Brittani Aguila RN [address] [place] [address] Hematology/Oncology 11/19/23 Program Director Cable Television Relationship Specialty Start Date End Date Jose Brennan SENIOR MARKETING ANALYST.HUMAN PERFORMANCE PROFESSOR [address] [facility] [place] [address] PCP - General Internal Medicine 01/10/23 Vimal Stoner MD [address] [place] [address] Physician Radiation Oncology 11/07/23 Roger Dorsey MD [address] [place] [address] Hematology/Oncology 11/19/23 Brittani Aguila, JAMEY [address] [place] [address] Hematology/Oncology 11/19/23 Program Director Cable Television Relationship Specialty Start Date End Date Jose Brennan, SENIOR MARKETING ANALYST.HUMAN PERFORMANCE PROFESSOR [address] [facility] [address] PCP - General Internal Medicine 01/10/23 Vimal Stoner MD [address] [place] [address] Physician Radiation Oncology 11/07/23 Roger Dorsey MD [address] [place] [address] Hematology/Oncology 11/19/23 Brittani Aguila, RN [address] [place] [address] Hematology/Oncology 11/19/23 Program Director Cable Television Relationship Specialty Start Date End Date Jose Brennan, SENIOR MARKETING ANALYST.HUMAN PERFORMANCE PROFESSOR [address] [facility] [place] [address] PCP - General Internal Medicine 01/10/23 Vimal Stoner MD [address] [place] [address] Physician Radiation Oncology 11/07/23 Roger Dorsey MD [address] [place] [address] Hematology/Oncology 11/19/23 Brittani Aguila RN [address] [place] [address] Hematology/Oncology 11/19/23 Program Director Cable Television Relationship Specialty Start Date End Date Jose Brennan SENIOR MARKETING ANALYST.HUMAN PERFORMANCE PROFESSOR [address] [facility] [place] [address] PCP - General Internal Medicine 01/10/23 Vimal Stoner MD [address] [place] [address] Physician Radiation Oncology 11/07/23 Roger Dorsey MD [address] [place] [address] Hematology/Oncology 11/19/23 Brittani Aguila RN [address] [place] [address] Hematology/Oncology 11/19/23 Program Director Cable Television Relationship Specialty Start Date End Date Jose Brennan, SENIOR MARKETING ANALYST.HUMAN PERFORMANCE PROFESSOR [address] [facility] [place] [address] PCP - General Internal Medicine 01/10/23 Vimal Stoner MD [address] [place] [address] Physician Radiation Oncology 11/07/23 Roger Dorsey MD [address] [place] [address] Hematology/Oncology 11/19/23 Brittani Aguila RN [address] [place] [address] Hematology/Oncology 11/19/23 Program Director Cable Television Relationship Specialty Start Date End Date Jose Brennan APRN.HUMAN PERFORMANCE PROFESSOR [address] [facility] [place] [address] PCP - General Internal Medicine 01/10/23 Vimal Stoner MD [address] [place] [address] Physician Radiation Oncology 11/07/23 Roger Dorsey MD [address] [place] [address] Hematology/Oncology 11/19/23 Brittani Aguila RN [address] [place] [address] Hematology/Oncology 11/19/23 Program Director Cable Television Relationship Specialty Start Date End Date Jose Brennan APRN.HUMAN PERFORMANCE PROFESSOR [address] [facility] [place] [address] PCP - General Internal Medicine 01/10/23 Vimal Stoner MD [address] [place] [address] Physician Radiation Oncology 11/07/23 Roger Dorsey MD [address] [place] [address] Hematology/Oncology 11/19/23 Brittani Aguila, JAMEY [address] [place] [address] Hematology/Oncology 11/19/23 Program Director Cable Television Relationship Specialty Start Date End Date Jose Brennan APRN.HUMAN PERFORMANCE PROFESSOR [address] [facility] [address] PCP - General Internal Medicine 01/10/23 Vimal Stoner MD [address] [place] [address] Physician Radiation Oncology 11/07/23 Roger Dorsey MD [address] [place] [address] Hematology/Oncology 11/19/23 Brittani Aguila, JAMEY [address] [place] [address] Hematology/Oncology 11/19/23 Program Director Cable Television Relationship Specialty Start Date End Date Jose Brennan APRN.HUMAN PERFORMANCE PROFESSOR [address] [facility] [place] [address] PCP - General Internal Medicine 01/10/23 Vimal Stoner MD [address] [place] [address] Physician Radiation Oncology 11/07/23 Roger Dorsey MD [address] [place] [address] Hematology/Oncology 11/19/23 Brittani Aguila, JAMEY [address] [place] [address] Hematology/Oncology 11/19/23 Program Director Cable Television Relationship Specialty Start Date End Date Jose Brennan APRN.HUMAN PERFORMANCE PROFESSOR [address] [facility] [place] [address] PCP - General Internal Medicine 01/10/23 Vimal Stoner MD [address] [place] [address] Physician Radiation Oncology 11/07/23 Roger Dorsey MD [address] [place] [address] Hematology/Oncology 11/19/23 Brittani Aguila, JAMEY [address] [place] [address] Hematology/Oncology 11/19/23 Program Director Cable Television Relationship Specialty Start Date End Date Jose Brennan APRN.HUMAN PERFORMANCE PROFESSOR [address] [facility] [address] PCP - General Internal Medicine 01/10/23 Vimal Stoner MD [address] [place] [address] Physician Radiation Oncology 11/07/23 Roger Dorsey MD [address] [place] [address] Hematology/Oncology 11/19/23 Brittani Aguila, JAMEY [address] [place] [address] Hematology/Oncology 11/19/23 Program Director Cable Television Relationship Specialty Start Date End Date Jose Brennan APRN.HUMAN PERFORMANCE PROFESSOR [address] [facility] [place] [address] PCP - General Internal Medicine 01/10/23 Vimal Stoner MD [address] [place] [address] Physician Radiation Oncology 11/07/23 Roger Dorsey MD [address] [place] [address] Hematology/Oncology 11/19/23 Brittani Aguila RN [address] [place] [address] Hematology/Oncology 11/19/23 Program Director Cable Television Relationship Specialty Start Date End Date Jose Brennan APRN.HUMAN PERFORMANCE PROFESSOR [address] [facility] [place] [address] PCP - General Internal Medicine 01/10/23 Vimal Stoner MD [address] [place] [address] Physician Radiation Oncology 11/07/23 Roger Dorsey MD [address] [place] [address] Hematology/Oncology 11/19/23 Brittani Aguila, JAMEY [address] [place] [address] Hematology/Oncology 11/19/23 Program Director Cable Television Relationship Specialty Start Date End Date Jose Brennan SENIOR MARKETING ANALYST.HUMAN PERFORMANCE PROFESSOR [address] [facility] [address] PCP - General Internal Medicine 01/10/23 Vimal Stoner MD [address] [place] [address] Physician Radiation Oncology 11/07/23 Roger Dorsey MD [address] [place] [address] Hematology/Oncology 11/19/23 Brittani Aguila, JAMEY [address] [place] [address] Hematology/Oncology 11/19/23 Program Director Cable Television Relationship Specialty Start Date End Date Jose Brennan SENIOR MARKETING ANALYST.HUMAN PERFORMANCE PROFESSOR [address] [facility] [address] PCP - General Internal Medicine 01/10/23 Vimal Stoner MD [address] [place] [address] Physician Radiation Oncology 11/07/23 Roger Dorsey MD [address] [place] [address] Hematology/Oncology 11/19/23 Brittani Aguila, JAMEY [address] [place] [address] Hematology/Oncology 11/19/23 Program Director Cable Television Relationship Specialty Start Date End Date Jose Brennan APRN.HUMAN PERFORMANCE PROFESSOR [address] [facility] [address] PCP - General Internal Medicine 01/10/23 Vimal Stoner MD [address] [place] [address] Physician Radiation Oncology 11/07/23 Roger Dorsey MD [address] [place] [address] Hematology/Oncology 11/19/23 Brittani Aguila, JAMEY [address] [place] [address] Hematology/Oncology 11/19/23 Program Director Cable Television Relationship Specialty Start Date End Date Jose Brennan, SENIOR MARKETING ANALYST.HUMAN PERFORMANCE PROFESSOR [address] [facility] [address] PCP - General Internal Medicine 01/10/23 Vimal Stoner MD [address] [place] [address] Physician Radiation Oncology 11/07/23 Roger Dorsey MD [address] [place] [address] Hematology/Oncology 11/19/23 Brittani Aguila RN [address] [place] [address] Hematology/Oncology 11/19/23 Program Director Cable Television Relationship Specialty Start Date End Date Jose Brennan, SENIOR MARKETING ANALYST.HUMAN PERFORMANCE PROFESSOR [address] [facility] [address] PCP - General Internal Medicine 01/10/23 Vimal Stoner MD [address] [place] [address] Physician Radiation Oncology 11/07/23 Roger Dorsey MD [address] [place] [address] Hematology/Oncology 11/19/23 Brittani Aguila RN [address] [place] [address] Hematology/Oncology 11/19/23 Program Director Cable Television Relationship Specialty Start Date End Date Jose Brennan APRN.HUMAN PERFORMANCE PROFESSOR [address] [facility] [place] [address] PCP - General Internal Medicine 01/10/23 Vimal Stoner MD [address] [place] [address] Physician Radiation Oncology 11/07/23 Roger Dorsey MD [address] [place] [address] Hematology/Oncology 11/19/23 Brittani Aguila, JAMEY [address] [place] [address] Hematology/Oncology 11/19/23 Program Director Cable Television Relationship Specialty Start Date End Date Jose Brennan APRN.HUMAN PERFORMANCE PROFESSOR [address] [place] [address] PCP - General Internal Medicine 01/10/23 Vimal Stoner MD [address] [place] [address] Physician Radiation Oncology 11/07/23 Roger Dorsey MD [address] [place] [address] Hematology/Oncology 11/19/23 Brittani Aguila, JAMEY [address] [place] [address] Hematology/Oncology 11/19/23 Program Director Cable Television Relationship Specialty Start Date End Date Jose Brennan APRN.HUMAN PERFORMANCE PROFESSOR [address] [facility] [address] PCP - General Internal Medicine 01/10/23 Vimal Stoner MD [address] [place] [address] Physician Radiation Oncology 11/07/23 Roger Dorsey MD [address] [place] [address] Hematology/Oncology 11/19/23 Brittani Aguila RN [address] [place] [address] Hematology/Oncology 11/19/23 Program Director Cable Television Relationship Specialty Start Date End Date Jose Brennan APRN.HUMAN PERFORMANCE PROFESSOR [address] [facility] [place] [address] PCP - General Internal Medicine 01/10/23 Vimal Stoner MD [address] [place] [address] Physician Radiation Oncology 11/07/23 Roger Dorsey MD [address] [place] [address] Hematology/Oncology 11/19/23 Brittani Aguila, JAMEY [address] [place] [address] Hematology/Oncology 11/19/23 Program Director Cable Television Relationship Specialty Start Date End Date Jose Brennan APRN.HUMAN PERFORMANCE PROFESSOR [address] [facility] [place] [address] PCP - General Internal Medicine 01/10/23 Vimal Stoner MD [address] [place] [address] Physician Radiation Oncology 11/07/23 Roger Dorsey MD [address] [place] [address] Hematology/Oncology 11/19/23 Brittani Aguila, JAMEY [address] [place] [address] Hematology/Oncology 11/19/23 Program Director Cable Television Relationship Specialty Start Date End Date Jose Brennan, SENIOR MARKETING ANALYST.HUMAN PERFORMANCE PROFESSOR [address] [facility] [place] [address] PCP - General Internal Medicine 01/10/23 Vimal Stoner MD [address] [place] [address] Physician Radiation Oncology 11/07/23 Roger Dorsey MD [address] [place] [address] Hematology/Oncology 11/19/23 Brittani Aguila, RN [address] [place] [address] Hematology/Oncology 11/19/23 Program Director Cable Television Relationship Specialty Start Date End Date Jose Brennan SENIOR MARKETING ANALYST.HUMAN PERFORMANCE PROFESSOR [address] [facility] [place] [address] PCP - General Internal Medicine 01/10/23 Vimal Stoner MD [address] [place] [address] Physician Radiation Oncology 11/07/23 Roger Dorsey MD [address] [place] [address] Hematology/Oncology 11/19/23 Brittani Aguila, JAMEY [address] [place] [address] Hematology/Oncology 11/19/23 Program Director Cable Television Relationship Specialty Start Date End Date Jose Brennan, SENIOR MARKETING ANALYST.HUMAN PERFORMANCE PROFESSOR [address] [facility] [place] [address] PCP - General Internal Medicine 01/10/23 Vimal Stoner MD [address] [place] [address] Physician Radiation Oncology 11/07/23 Roger Dorsey MD [address] [place] [address] Hematology/Oncology 11/19/23 Brittani Aguila RN [address] [place] [address] Hematology/Oncology 11/19/23 Program Director Cable Television Relationship Specialty Start Date End Date Jose Brennan, SENIOR MARKETING ANALYST.HUMAN PERFORMANCE PROFESSOR [address] [facility] [place] [address] PCP - General Internal Medicine 01/10/23 Vimal Stoner MD [address] [place] [address] Physician Radiation Oncology 11/07/23 Roger Dorsey MD [address] [place] [address] Hematology/Oncology 11/19/23 Brittani Aguila, JAMEY [address] [place] [address] Hematology/Oncology 11/19/23 Program Director Cable [employer] Relationship Specialty Start Date End Date Jose Brennan, SENIOR MARKETING ANALYST.HUMAN PERFORMANCE PROFESSOR [address] [facility] [address] PCP - General Internal Medicine 01/10/23 Vimal Stoner MD [address] [place] [address] Physician Radiation Oncology 11/07/23 Roger Dorsey MD [address] [place] [address] Hematology/Oncology 11/19/23 Brittani Aguila RN [address] [place] [address] Hematology/Oncology 11/19/23 Program Director Cable Television Relationship Specialty Start Date End Date Jose Brennan SENIOR MARKETING ANALYST.HUMAN PERFORMANCE PROFESSOR [address] [facility] [address] PCP - General Internal Medicine 01/10/23 Vimal Stoner MD [address] [place] [address] Physician Radiation Oncology 11/07/23 Roger Dorsey MD [address] [place] [address] Hematology/Oncology 11/19/23 Brittani Aguila RN [address] [place] [address] Hematology/Oncology 11/19/23 Program Director Cable Television Relationship Specialty Start Date End Date Jose Brennan, SENIOR MARKETING ANALYST.HUMAN PERFORMANCE PROFESSOR [address] [facility] [place] [address] PCP - General Internal Medicine 01/10/23 Vimal Stoner MD [address] [place] [address] Physician Radiation Oncology 11/07/23 Roger Dorsey MD [address] [place] [address] Hematology/Oncology 11/19/23 Brittani Aguila RN [address] [place] [address] Hematology/Oncology 11/19/23 Program Director Cable Television Relationship Specialty Start Date End Date Jose Brennan, SENIOR MARKETING ANALYST.HUMAN PERFORMANCE PROFESSOR [address] [facility] [place] [address] PCP - General Internal Medicine 01/10/23 Vimal Stoner MD [address] [place] [address] Physician Radiation Oncology 11/07/23 Roger Dorsey MD [address] [place] [address] Hematology/Oncology 11/19/23 Brittani Aguila RN [address] [place] [address] Hematology/Oncology 11/19/23 Program Director Cable Television Relationship Specialty Start Date End Date Jose Brennan APRN.HUMAN PERFORMANCE PROFESSOR [address] [facility] [place] [address] PCP - General Internal Medicine 01/10/23 Vimal Stoner MD [address] [place] [address] Physician Radiation Oncology 11/07/23 Roger Dorsey MD [address] [place] [address] Hematology/Oncology 11/19/23 Brittani Aguila, JAMEY [address] [place] [address] Hematology/Oncology 11/19/23 Program Director Cable Television Relationship Specialty Start Date End Date Joes Brennan APRN.HUMAN PERFORMANCE PROFESSOR [address] [facility] [place] [address] PCP - General Internal Medicine 01/10/23 Vimal Stoner MD [address] [place] [address] Physician Radiation Oncology 11/07/23 Roger Dorsey MD [address] [place] [address] Hematology/Oncology 11/19/23 Brittani Aguila, JAMEY [address] [place] [address] Hematology/Oncology 11/19/23 Program Director Cable Television Relationship Specialty Start Date End Date Jose Brennan APRN.HUMAN PERFORMANCE PROFESSOR [address] [facility] [address] PCP - General Internal Medicine 01/10/23 Vimal Stoner MD [address] [place] [address] Physician Radiation Oncology 11/07/23 Roger Dorsey MD [address] [place] [address] Hematology/Oncology 11/19/23 Brittani Aguila RN [address] [place] [address] Hematology/Oncology 11/19/23 Program Director Cable Television Relationship Specialty Start Date End Date Jose Brennan APRN.HUMAN PERFORMANCE PROFESSOR [address] [facility] [place] [address] PCP - General Internal Medicine 01/10/23 Vimal Stoner MD [address] [place] [address] Physician Radiation Oncology 11/07/23 Roger Dorsey MD [address] [place] [address] Hematology/Oncology 11/19/23 Brittani Aguila, JAMEY [address] [place] [address] Hematology/Oncology 11/19/23 Program Director Cable Television Relationship Specialty Start Date End Date Jose Brennan APRN.HUMAN PERFORMANCE PROFESSOR [address] [facility] [place] [address] PCP - General Internal Medicine 01/10/23 Vimal Stoner MD [address] [place] [address] Physician Radiation Oncology 11/07/23 Roger Dorsey MD [address] [place] [address] Hematology/Oncology 11/19/23 Brittani Aguila, JAMEY [address] [place] [address] Hematology/Oncology 11/19/23 Program Director [employer] Relationship Specialty Start Date End Date Jose Brennan, SENIOR MARKETING ANALYST.HUMAN PERFORMANCE PROFESSOR [address] [facility] [address] PCP - General Internal Medicine 01/10/23 Vimal Stoner MD [address] [place] [address] Physician Radiation Oncology 11/07/23 Roger Dorsey MD [address] [place] [address] Hematology/Oncology 11/19/23 Brittani Aguila, JAMEY [address] [place] [address] Hematology/Oncology 11/19/23 Program Director Cable Television Relationship Specialty Start Date End Date Jose Brennan SENIOR MARKETING ANALYST.HUMAN PERFORMANCE PROFESSOR [address] [facility] [place] [address] PCP - General Internal Medicine 01/10/23 Vimal Stoner MD [address] [place] [address] Physician Radiation Oncology 11/07/23 Roger Dorsye MD [address] [place] [address] Hematology/Oncology 11/19/23 Brittani Aguila, JAMEY [address] [place] [address] Hematology/Oncology 11/19/23 Program Director Cable Television Relationship Specialty Start Date End Date Jose Bernnan, SENIOR MARKETING ANALYST.HUMAN PERFORMANCE PROFESSOR [address] [facility] [address] PCP - General Internal Medicine 01/10/23 Vimal Stoner MD [address] [place] [address] Physician Radiation Oncology 11/07/23 Roger Dorsey MD [address] [place] [address] Hematology/Oncology 11/19/23 Brittani Aguila, RN [address] [place] [address] Hematology/Oncology 11/19/23 Program Director Cable Television Relationship Specialty Start Date End Date Jose Brennan, SENIOR MARKETING ANALYST.HUMAN PERFORMANCE PROFESSOR [address] [facility] [address] PCP - General Internal Medicine 01/10/23 Vimal Stoner MD [address] [place] [address] Physician Radiation Oncology 11/07/23 Roger Dorsey MD [address] [place] [address] Hematology/Oncology 11/19/23 Brittani Aguila RN [address] [place] [address] Hematology/Oncology 11/19/23 Program Director Cable Television Relationship Specialty Start Date End Date Jose Brennan, SENIOR MARKETING ANALYST.HUMAN PERFORMANCE PROFESSOR [address] [place] [address] PCP - General Internal Medicine 01/10/23 Vimal Stoner MD [address] [place] [address] Physician Radiation Oncology 11/07/23 Roger Dorsey MD [address] [place] [address] Hematology/Oncology 11/19/23 Brittani Aguila RN [address] [place] [address] Hematology/Oncology 11/19/23 Program Director Cable Television Relationship Specialty Start Date End Date Jose Brennan, SENIOR MARKETING ANALYST.HUMAN PERFORMANCE PROFESSOR [address] [place] [address] PCP - General Internal Medicine 01/10/23 Vimal Stoner MD [address] [place] [address] Physician Radiation Oncology 11/07/23 Roger Dorsey MD [address] [place] [address] Hematology/Oncology 11/19/23 Brittani Aguila RN [address] [place] [address] Hematology/Oncology 11/19/23 Program Director Cable Television Relationship Specialty Start Date End Date Jose Brennan APRN.HUMAN PERFORMANCE PROFESSOR [address] [place] [address] PCP - General Internal Medicine 01/10/23 Vimal Stoner MD [address] [place] [address] Physician Radiation Oncology 11/07/23 Roger Dorsey MD [address] [place] [address] Hematology/Oncology 11/19/23 Brittani Aguila RN [address] [place] [address] Hematology/Oncology 11/19/23 Program Director Cable Television Relationship Specialty Start Date End Date Jose Brennan SENIOR MARKETING ANALYST.HUMAN PERFORMANCE PROFESSOR [address] [place] [address] PCP - General Internal Medicine 01/10/23 Vimal Stoner MD [address] [place] [address] Physician Radiation Oncology 11/07/23 Roger Dorsey MD [address] [place] [address] Hematology/Oncology 11/19/23 Brittani Aguila RN [address] [place] [address] Hematology/Oncology 11/19/23 Program Director Cable Television Relationship Specialty Start Date End Date Jose Brennan APRN.HUMAN PERFORMANCE PROFESSOR [address] [place] [address] PCP - General Internal Medicine 01/10/23 Vimal Stoner MD [address] [place] [address] Physician Radiation Oncology 11/07/23 Roger Dorsey MD [address] [place] [address] Hematology/Oncology 11/19/23 Brittani Aguila, JAMEY [address] [place] [address] Hematology/Oncology 11/19/23 Program Director [employer] Relationship Specialty Start Date End Date Jose Brennan APRN.HUMAN PERFORMANCE PROFESSOR [address] [place] [address] PCP - General Internal Medicine 01/10/23 Vimal Stoner MD [address] [place] [address] Physician Radiation Oncology 11/07/23 Roger Dorsey MD [address] [place] [address] Hematology/Oncology 11/19/23 Brittani Aguila, JAMEY [address] [place] [address] Hematology/Oncology 11/19/23 Program Director Cable Television Relationship Specialty Start Date End Date Jose Brennan APRN.HUMAN PERFORMANCE PROFESSOR [address] [place] [address] PCP - General Internal Medicine 01/10/23 Vimal Stoner MD [address] [place] [address] Physician Radiation Oncology 11/07/23 Roger Dorsey MD [address] [place] [address] Hematology/Oncology 11/19/23 Brittani Aguila, JAMEY [address] [place] [address] Hematology/Oncology 11/19/23 Program Director [employer] Relationship Specialty Start Date End Date Jose Brennan APRN.HUMAN PERFORMANCE PROFESSOR [address] [place] [address] PCP - General Internal Medicine 01/10/23 Vimal Stoner MD [address] [place] [address] Physician Radiation Oncology 11/07/23 Roger Dorsey MD [address] [place] [address] Hematology/Oncology 11/19/23 Brittani Aguila, RN [address] [place] [address] Hematology/Oncology 11/19/23 Program Director Cable Television Relationship Specialty Start Date End Date Jose Brennan APRN.HUMAN PERFORMANCE PROFESSOR [address] [place] [address] PCP - General Internal Medicine 01/10/23 Vimal Stoner MD [address] [place] [address] Physician Radiation Oncology 11/07/23 Roger Dorsey MD [address] [place] [address] Hematology/Oncology 11/19/23 Brittani Aguila, JAMEY [address] [place] [address] Hematology/Oncology 11/19/23 Program Director Cable Television Relationship Specialty Start Date End Date Jose Brennan SENIOR MARKETING ANALYST.HUMAN PERFORMANCE PROFESSOR [address] [place] [address] PCP - General Internal Medicine 01/10/23 Vimal Stoner MD [address] [place] [address] Physician Radiation Oncology 11/07/23 Roger Dorsey MD [address] [place] [address] Hematology/Oncology 11/19/23 Brittani Aguila RN [address] [place] [address] Hematology/Oncology 11/19/23 Program Director Cable Television Relationship Specialty Start Date End Date Jose Brennan SENIOR MARKETING ANALYST.HUMAN PERFORMANCE PROFESSOR [address] [place] [address] PCP - General Internal Medicine 01/10/23 Vimal Stoner MD [address] [place] [address] Physician Radiation Oncology 11/07/23 Roger Dorsey MD [address] [place] [address] Hematology/Oncology 11/19/23 Brittani Aguila, JAMEY [address] [place] [address] Hematology/Oncology 11/19/23 Program Director Cable Television Relationship Specialty Start Date End Date Jose Brennan, SENIOR MARKETING ANALYST.HUMAN PERFORMANCE PROFESSOR [address] [place] [address] PCP - General Internal Medicine 01/10/23 Vimal Stoner MD [address] [place] [address] Physician Radiation Oncology 11/07/23 Roger Dorsey MD [address] [place] [address] Hematology/Oncology 11/19/23 Brittani Aguila, JAMEY [address] [place] [address] Hematology/Oncology 11/19/23 Program Director Cable Television Relationship Specialty Start Date End Date Jose Brennan, SENIOR MARKETING ANALYST.HUMAN PERFORMANCE PROFESSOR [address] [place] [address] PCP - General Internal Medicine 01/10/23 Vimal Stoner MD [address] [place] [address] Physician Radiation Oncology 11/07/23 Roger Dorsey MD [address] [place] [address] Hematology/Oncology 11/19/23 Brittani Aguila RN [address] [place] [address] Hematology/Oncology 11/19/23 Program Director Cable Television Relationship Specialty Start Date End Date Jose Brennan, SENIOR MARKETING ANALYST.HUMAN PERFORMANCE PROFESSOR [address] [place] [address] PCP - General Internal Medicine 01/10/23 Vimal Stoner MD [address] [place] [address] Physician Radiation Oncology 11/07/23 Roger Dorsey MD [address] [place] [address] Hematology/Oncology 11/19/23 Brittani Aguila RN [address] [place] [address] Hematology/Oncology 11/19/23 Program Director [employer] Television Relationship Specialty Start Date End Date Jose Brennan, SENIOR MARKETING ANALYST.HUMAN PERFORMANCE PROFESSOR [address] [place] [address] PCP - General Internal Medicine 01/10/23 Vimal Stoner MD [address] [place] [address] Physician Radiation Oncology 11/07/23 Roger Dorsey MD [address] [place] [address] Hematology/Oncology 11/19/23 Brittani Aguila RN [address] [place] [address] Hematology/Oncology 11/19/23 Program Director Cable Television Relationship Specialty Start Date End Date Jose Brennan APRN.HUMAN PERFORMANCE PROFESSOR [address] [address] PCP - General Internal Medicine 01/10/23 Vimal Stoner MD [address] [place] [address] Physician Radiation Oncology 11/07/23 Roger Dorsey MD [address] [place] [address] Hematology/Oncology 11/19/23 Brittani Aguila RN [address] [place] [address] Hematology/Oncology 11/19/23 Program Director Cable Television Relationship Specialty Start Date End Date Jose Brennan APRN.HUMAN PERFORMANCE PROFESSOR [address] [address] PCP - General Internal Medicine 01/10/23 Vimal Stoner MD [address] [place] [address] Physician Radiation Oncology 11/07/23 Roger Dorsey MD [address] [place] [address] Hematology/Oncology 11/19/23 Brittani Aguila RN [address] [place] [address] Hematology/Oncology 11/19/23 Program Director [employer] Relationship Specialty Start Date End Date Jose Brennan APRN.HUMAN PERFORMANCE PROFESSOR [address] [place] [address] PCP - General Internal Medicine 01/10/23 Vimal Stoner MD [address] [place] [address] Physician Radiation Oncology 11/07/23 Roger Dorsey MD [address] [place] [address] Hematology/Oncology 11/19/23 Brittani Aguila, JAMEY [address] [place] [address] Hematology/Oncology 11/19/23 Program Director Cable Television Relationship Specialty Start Date End Date Jose Brennan APRN.HUMAN PERFORMANCE PROFESSOR [address] [place] [address] PCP - General Internal Medicine 01/10/23 Vimal Stoner MD [address] [place] [address] Physician Radiation Oncology 11/07/23 Roger Dorsey MD [address] [place] [address] Hematology/Oncology 11/19/23 Brittani Aguila, JAMEY [address] [place] [address] Hematology/Oncology 11/19/23 Program Director [employer] Relationship Specialty Start Date End Date Jose Brennan APRN.HUMAN PERFORMANCE PROFESSOR [address] [place] [address] PCP - General Internal Medicine 01/10/23 Vimal Stoner MD [address] [place], [place] [address] Physician Radiation Oncology 11/07/23 Roger Dorsey MD [address] [address] Hematology/Oncology 11/19/23 Brittani Aguila, JAMEY [address] [address] Hematology/Oncology 11/19/23 Inactive Administered Medications - up to 3 most recent administrations Administered Medications (un recognized section and content) Medication Order MAR Action Action Date Dose Rate Site cyanocobalamin 1,000 mcg injection 1,000 mcg, INTRAMUSCULAR, ONCE, 1 dose, On Fri11/19/23 at 1200 Given 11/19/2023 12:00 PM EDT 1,000 mcg Deltoid, Left Inactive Administered Medications - up to 3 most recent administrations Medication Order MAR Action Action Date Dose Rate Site CARBOplatin 687 mg in NaCl 0.9% 343.7 mL (PARAPLATIN) 687 mg (Target AUC = 5), INTRAVENOUS, Administer over 30 Minutes, ONCE, 1 dose, On Fri11/24/23 at 0830, exp 0900 11/25/23 (room temp) Hazardous Chemotherapy Drug: Use appropriate PPE. Antineoplastic Irritant. New Bag/Syringe/Bottle 11/24/2023 9:49 AM EDT 687 mg dexAMETHasone 10 mg in NaCl 0.9% 50 mL (DECADRON) 10 mg, INTRAVENOUS, ONCE, 1 dose, On Fri11/24/23 at 0830, Refrigerate. New Bag/Syringe/Bottle 11/24/2023 8:40 AM EDT 10 mg fosaprepitant 150 mg in NaCl 0.9% 250 mL (EMEND) 150 mg, INTRAVENOUS, Administer over 30 Minutes, ONCE, 1 dose, On Fri11/24/23 at 0830, Approximate Total Volume = 280 mL Mix in non-DEHP bag - Refrigerate New Bag/Syringe/Bottle 11/24/2023 9:00 AM EDT 150 mg ondansetron (PF) 8 mg injection (ZOFRAN) 8 mg, INTRAVENOUS, ONCE, 1 dose, On Fri11/24/23 at 0830, Administer 30 minutes prior to infusion., Medication Substitution: [facility] preferred product has been replaced with the insurance mandated product Given 11/24/2023 8:44 AM EDT 8 mg PEMEtrexed disodium 1,070 mg in NaCl 0.9% 152.8 mL (ALIMTA) 1,070 mg (500 mg/m2 2.14 m2 Treatment Plan BSA from Recorded weight), INTRAVENOUS, Administer over 10 Minutes, ONCE, 1 dose, On Fri11/24/23 at 0830, exp 0900 11/25/23 (room temp) Hazardous Chemotherapy Drug: Use appropriate PPE. New Bag/Syringe/Bottle 11/24/2023 9:34 AM EDT 1,070 mg Inactive Administered Medications - up to 3 most recent administrations Medication Order MAR Action Action Date Dose Rate Site CARBOplatin 700 mg in NaCl 0.9% 345 mL (PARAPLATIN) 700 mg (rounded from 728 mg, Target AUC = 5), INTRAVENOUS, Administer over 30 Minutes, ONCE, 1 dose, On Fri12/15/23 at 1300, exp 1300 12/16/23 (room temp) Hazardous Chemotherapy Drug: Use appropriate PPE. Antineoplastic Irritant. New Bag/Syringe/Bottle 12/15/2023 2:32 PM EDT 700 mg dexAMETHasone 10 mg in NaCl 0.9% 50 mL (DECADRON) 10 mg, INTRAVENOUS, ONCE, 1 dose, On Fri12/15/23 at 1300, Refrigerate. New Bag/Syringe/Bottle 12/15/2023 1:18 PM EDT 10 mg fosaprepitant 150 mg in NaCl 0.9% 250 mL (EMEND) 150 mg, INTRAVENOUS, Administer over 30 Minutes, ONCE, 1 dose, On Fri12/15/23 at 1300, Approximate Total Volume = 280 mL Mix in non-DEHP bag - Refrigerate New Bag/Syringe/Bottle 12/15/2023 1:35 PM EDT 150 mg ondansetron (PF) 8 mg injection (ZOFRAN) 8 mg, INTRAVENOUS, ONCE, 1 dose, On Fri12/15/23 at 1300, Administer 30 minutes prior to infusion., Medication Substitution: [facility] preferred product has been replaced with the insurance mandated product Given 12/15/2023 1:16 PM EDT 8 mg PEMEtrexed disodium 1,070 mg in NaCl 0.9% 152.8 mL (ALIMTA) 1,070 mg (500 mg/m2 2.14 m2 Treatment Plan BSA from Recorded weight), INTRAVENOUS, Administer over 10 Minutes, ONCE, 1 dose, On Fri12/15/23 at 1300, exp 1200 12/16/23 (room temp) Hazardous Chemotherapy Drug: Use appropriate PPE. New Bag/Syringe/Bottle 12/15/2023 2:15 PM EDT 1,070 mg FOR RECORDS PERTAINING TO PATIENTS WHO ARE OR HAVE BEEN ENROLLED IN A CHEMICAL DEPENDENCY/SUBSTANCEABUSE PROGRAM, SOME INFORMATION MAY BE OMITTED. This clinical summary was aggregated from multiple sources. Caution should be exercised in using it in the provision of clinical care. This summary normalizes information from multiple sources, and as a consequence, information in this document may materially change the coding, format and clinical context of patient data. In addition, data may be omitted in some cases. CLINICAL DECISIONS SHOULD BE BASED ON THE PRIMARY CLINICAL RECORDS. [employer] provides no warranty or guarantee of the accuracy or completeness of information in this document.
--- OUTSIDE RECORDS SUMMARY | 2025-03-13 11:14 | XMS RPT_ITS | CCD ---
Author Organization [facility] Care Team Providers Care Medical Technician Name Role Phone BRYSON MINING SUPPORT WORKER-NAYDecember Primary Care Physician [phone] PILO SANTIAGO Attending Unavailable DANIA Attending Unavailable Anu MINING SUPPORT WORKER.Jose TEE Primary Care Provider [phone] Herbie LUCAS, Vimal Unavailable Enzo LUCAS, Roger Unavailable [phone] Mingo CONCEPCION, Brittani Unavailable [phone] Anu MINING SUPPORT WORKER.Jose TEE Primary Care Provider [phone] ANNE-MARIE CONSTANTINO Referring Unavailabl e PROVIDER, UNKNOWN Attending Unavailable PROVIDER, UNKNOWN Admitting Unavailable Unavailable Primary Care Provider Unavailabl e ANU, JOSE Primary Care Unavailable ERNIE AVALOS Attending Unavailable MELLISSA-STEVEDANYELLE Admitting Unavailab le MELLISSA-STEVE, DANYELLE Attending Unavailab le MELLISSA-STEVE, DANYELLE Referring Unavailab le ANU, JOSE Primary Care Unavailable Anu MINING SUPPORT WORKER.Jose TEE Primary Care Provider Anu MINING SUPPORT WORKER.Jose TEE Primary Care Provider [phone] ROGER [...] Unavailable ANU, JOSE Primary Care Unavailable ABRAMOVICH, RGOER Referring Unavailable ANU, JOSE Primary Care Unavailable [...] Attending Unavailable ANU, JOSE Primary Care Unavailable AUN, JOSE Primary Care Unavailable ANU, JOSE Attending [...] Date of Onset Reaction(s) Facility (1 source) [place] Food allergy [facility] (20 sources) Buprenorphine; Translations: [buprenorphine] Drug Allergy 4 Hives [facility] (20 sources) Codeine; Translations: [codeine] Drug Allergy 4 [facility] (1 source) Wheat preparation Drug Allergy with allergy testing,showed allergy to wheat [facility] (1 source) Dairy products Food allergy chest congestion [facility] (1 source) misc analgesics 1 Drug allergy [facility] Comment on above: ana paula (20 sources) cow milk allergenic extract; Translations: [MILK] Drug Allergy 4 Other: See Comments [facility] (20 sources) Adhesive Tape-Silicones; Translations: [ADHESIVE TAPE-SILICONES] Drug Intolerance 3 Rash [facility] Work Phone: Medications Current Medications Medication Drug [...] by cecily every 8 hours as needed. [id number] 200 actuat albuterol 0.09 mg/actuat metered dose [...] Comment on above: Take 1 tablet by [facility] once daily. ibuprofen 800 mg oral tablet (20 sources) Nonsteroidal Anti-inflammatory Drug Start: 2017 IBU 800 mg oral tablet Dose : 800 mg = 1 tab(s), Oral, TID, PRN for pain, # 30 tab(s), 0 Refill(s) Start Date: 03/06/18 Status: Ordered take 4 tablets by [facility] every eight hours as needed [...] (2 sources) End: 11-10-2023 Menth-Methyl [place] in [place] Oil 5-14 % liqd Apply 0.25 g [...] on above: Take 1 capsule by [facility] once daily. omeprazole 20 mg delayed release [...] Comment on above: Take 1 tablet by [facility] every 8 hours as needed. oxyCODONE hydrochloride [...] every 8 hours as needed. 01/17/2025 Discontinued [place]-3 Fatty Acids-Vitamin E 1,000 mg cap (2 sources) End: 04-14-2023 take 2 capsules by mouth once daily [place]-3 Fatty Acids-Vitamin E 1,000 mg cap Take 2 capsules by mouth once daily. 0 04/14/2023 Discontinued take 2 capsules by mouth once da anvi [place]-3 Fatty Acids-Vitamin E 1,000 mg cap Take [...] with medication. Hx of 2-- tx'd at [facility]. Other and ill-defined cerebrovascular disease (1 source) [...] 143 mg/dL Abnormal 74 - 99 mg/dL [facility] Comment on above: Location:[facility], [address] [place] [address], [facility] The Accu-Chek Inform II glucose meter has [...] Interpretation and review of laboratory results Abnormal [facility] NM PET/CT SKULL-THIGH SUBQon 03-07-2025 NM PET/CT SKULL-THIGH SUBQ * * *Final Report* * * DATE OF EXAM: Mar 07 2025 9:52AM [facility] 0063 - [place] PET/CT SKULL-THIGH SUBQ / PROCEDURE REASON: Malignant [...] * Uptake Time: 70 minutes * Radiopharmaceutical: S76-Qkvgpxnteovdnuqwup (FDG) COMPARISON: FDG PET/CT 11/08/2024 CORRELATION: No [...] involving the axial and proximal appendicular skeleton. Adult Live In Caregiver areas include: * Uptake at the right [...] * Uptake Time: 70 minutes * Radiopharmaceutical: N64-Ipzucpsxmeqvrwnhlb (FDG) COMPARISON: FDG PET/CT 11/08/2024 CORRELATION: No [...] involving the axial and proximal appendicular skeleton. Adult Live In Caregiver areas include: * Uptake at the right [...] avid lesion. IMPRESSION (more content not included)... [facility] RADIOLOGY Provider, Marcus Wilson - 03/07/2025 [...] * Uptake Time: 70 minutes * Radiopharmaceutical: Z84-Xvmwmxgkpeafsnmdck (FDG) COMPARISON: FDG PET/CT 11/08/2024 CORRELATION: No [...] involving the axial and proximal appendicular skeleton. Adult Live In Caregiver areas include: * Uptake at the right [...] avid lesion. IM (more content not included)... [facility] Radiology Study observation (narrative) [facility] PET+CT Guidance for localiza tion of tumor of Skull base to mid-thigh-- W 18F-FDG IVOrdered By: Ccf Provider on 03-07-2025 [facility] CNOVon 02-28-2025 CNOV Normal [facility] CNPNon 02-22-2025 CNPN Normal [facility] CNPNon 02-04-2025 CNPN Normal [facility] CNOVon 01-17-2025 CNOV Normal [facility] XR LUMBAR 3V AP/LAT/L5-S1on 01-17-2025 XR LUMBAR 3V AP/LAT/L5-S1 Normal [facility] CNOVon 11-16-2024 CNOV Normal [facility] CNPNon 11-16-2024 CNPN Normal [facility] XR CHEST 2V FRONTAL/LATon XR CHEST 2V FRONTAL/LAT Normal [facility] CNPNon 11-12-2024 CNPN Normal [facility] CBC W Auto Differential pane l (Bld)on 11-11-2024 Basophils (Bld) [#/Vol] 0.06 10*3/uL Normal <0.11 [facility] Comment on above: Order Comment: Speci men Type: BLOOD SPECIMENOrdering Facility: [facility] Address: [address] [place] [address] Performed By: #### 5 7021-8 ####[facility] MILLBENWNCLIA [id number] [place] [address] [place] Basophils/100 WBC (Bld) 1.8 % Normal [facility] Comment on above: Order Comment: Speci men Type: BLOOD SPECIMENOrdering Facility: [facility] Address: [address] [place] [address] Performed By: #### 5 7021-8 ####[facility] MILLWNCLIA [id number] [place] [address] [place] Differential cell count method Nom (Bld) Auto Normal [facility] Comment on above: Order Comment: Speci men Type: BLOOD SPECIMENOrdering Facility: [facility] Address: [address] [place] [address] Performed By: #### 5 7021-8 ####[facility] MILLWNCLIA [id number] [place] [address] [place] Eosinophils (Bld) [#/Vol] 0.14 10*3/uL Normal <0.46 [facility] Comment on above: Order Comment: Speci men Type: BLOOD SPECIMENOrdering Facility: [facility] Address: [address] [place] [address] Performed By: #### 5 7021-8 ####[facility] MILLTOWNCLIA [id number] [place] [address] [place] Eosinophils/100 WBC (Bld) 4.3 % Normal [facility] Comment on above: Order Comment: Speci men Type: BLOOD SPECIMENOrdering Facility: [facility] Address: [address] [place] [address] Performed By: #### 5 7021-8 ####[facility] MILLTOWNCLIA [id number] [place] [address] [place] Erythrocyte distribution width (RBC) [Ratio] 15.4 % High 11.5-15.0 [facility] Comment on above: Order Comment: Speci men Type: BLOOD SPECIMENOrdering Facility: [facility] Address: [address] [place] [address] Performed By: #### 5 7021-8 ####[facility] CENTERMaricruz [id number] [place] [address] [place] Hematocrit (Bld) [Volume fraction] 35.3 % Low 39.0-51.0 [facility] Comment on above: Order Comment: Speci men Type: BLOOD SPECIMENOrdering Facility: [facility] Address: [address] [place] [address] Performed By: #### 5 7021-8 ####[facility] ER [id number] [place] [address] [place] Hemoglobin (Bld) [Mass/Vol] 11.1 g/dL Low 13.0-17.0 [facility] Comment on above: Order Comment: Speci men Type: BLOOD SPECIMENOrdering Facility: [facility] Address: [address] [place] [address] Performed By: #### 5 7021-8 ####[facility]PITALLEIGHTON [id number] [place] [address] [place] Immature granulocytes (Bld) [#/Vol] 0.11 10*3/uL High <0.10 [facility] Comment on above: Order Comment: Speci men Type: BLOOD SPECIMENOrdering Facility: [facility] Address: [address] [place] [address] Performed By: #### 5 7021-8 ####[facility] HOSPITALNCLI [id number] [place] [address] [place] Immature granulocytes/100 WBC (Bld) 3.4 % Normal [facility] Comment on above: Order Comment: Speci men Type: BLOOD SPECIMENOrdering Facility: [facility] Address: [address] [place] [address] Performed By: #### 5 7021-8 ####[facility] ER [id number] [place] [address] [place] Lymphocytes (Bld) [#/Vol] 0.70 10*3/uL Low 1.00-4.00 [facility] Comment on above: Order Comment: Speci men Type: BLOOD SPECIMENOrdering Facility: [facility] Address: [address] [place] [address] Performed By: #### 5 7021-8 ####[facility] ER [id number] [place] [address] [place] Lymphocytes/100 WBC (Bld) 21.4 % Normal [facility] Comment on above: Order Comment: Speci men Type: BLOOD SPECIMENOrdering Facility: [facility] Address: [address] [place] [address] Performed By: #### 5 7021-8 ####[facility] ER [id number] [place] [address] [place] MCH (RBC) [Entitic mass] 28.1 pg Normal 26.0-34.0 [facility] Comment on above: Order Comment: Speci men Type: BLOOD SPECIMENOrdering Facility: [facility] Address: [address] [place] [address] Performed By: #### 5 7021-8 ####[facility] ER [id number] [place] [address] [place] MCHC (RBC) [Mass/Vol] 31.4 g/dL Normal 30.5-36.0 [facility] Comment on above: Order Comment: Speci men Type: BLOOD SPECIMENOrdering Facility: [facility] Address: [address] [place] [address] Performed By: #### 5 7021-8 ####[facility] KIESHAAMANDALIA [id number] [place] [address] [place] MCV (RBC) [Entitic vol] 89.4 fL Normal 80.0-100.0 [facility] Comment on above: Order Comment: Speci men Type: BLOOD SPECIMENOrdering Facility: [facility] Address: [address] [place] [address] Performed By: #### 5 7021-8 ####[facility]ITALNCLIA [id number] [place] [address] [place] Monocytes (Bld) [#/Vol] 0.37 10*3/uL Normal <0.87 [facility] Comment on above: Order Comment: Speci men Type: BLOOD SPECIMENOrdering Facility: [facility] Address: [address] [place] [address] Performed By: #### 5 7021-8 ####[facility]ITALNCLIA [id number] [place] [address] [place] Monocytes/100 WBC (Bld) 11.3 % Normal [facility] Comment on above: Order Comment: Speci men Type: BLOOD SPECIMENOrdering Facility: [facility] Address: [address] [place] [address] Performed By: #### 5 7021-8 ####[facility]ITALNCLIA [id number] [place] [address] [place] Neutrophils (Bld) [#/Vol] 1.89 10*3/uL Normal 1.45-7.50 [facility] Comment on above: Order Comment: Speci men Type: BLOOD SPECIMENOrdering Facility: [facility] Address: [address] [place] [address] Performed By: #### 5 7021-8 ####[facility] [id number] [place] [address] [place] Neutrophils/100 WBC (Bld) 57.8 % Normal [facility] Comment on above: Order Comment: Speci men Type: BLOOD SPECIMENOrdering Facility: [facility] Address: [address] [place] [address] Performed By: #### 5 7021-8 ####[facility] ER [id number] [place] [address] [place] Nucleated RBC (Bld) [#/Vol] 10*3/uL Normal <0.01 [facility] Comment on above: Order Comment: Speci men Type: BLOOD SPECIMENOrdering Facility: [facility] Address: [address] [place] [address] Performed By: #### 5 7021-8 ####[facility] ER [id number] [place] [address] [place] Nucleated RBC/100 WBC (Bld) [Ratio] 0.0 /100 WBC Normal [facility] Comment on above: Order Comment: Speci men Type: BLOOD SPECIMENOrdering Facility: [facility] Address: [address] [place] [address] Performed By: #### 5 7021-8 ####[facility] ER [id number] [place] [address] [place] Platelet mean volume (Bld) [Entitic vol] 8.2 fL Low 9.0-12.7 [facility] Comment on above: Order Comment: Speci men Type: BLOOD SPECIMENOrdering Facility: [facility] Address: [address] [place] [address] Performed By: #### 5 7021-8 ####[facility] HOS[facility]ITALNCLI [id number] [place] [address] [place] Platelets (Bld) [#/Vol] 222 10*3/uL Normal 150-400 [facility] Comment on above: Order Comment: Speci men Type: BLOOD SPECIMENOrdering Facility: [facility] Address: [facility] [place] [address] Performed By: #### 5 7021-8 ####[facility] HOSPITALNCA [id number] [place] [address] [place] RBC (Bld) [#/Vol] 3.95 10*6/uL Low 4.20-6.00 [facility] Comment on above: Order Comment: Speci men Type: BLOOD SPECIMENOrdering Facility: [facility] Address: [address] [place] [address] Performed By: #### 5 7021-8 ####[facility] ER [id number] [place] [address] [place] WBC (Bld) [#/Vol] 3.27 10*3/uL Low 3.70-11.00 [facility] Comment on above: Order Comment: Speci men Type: BLOOD SPECIMENOrdering Facility: [facility] Address: [facility] [place] [address] Performed By: #### 5 7021-8 ####[facility]ENTERA [id number] [place] [address] [place] CNOVSPon 11-11-2024 CNOVSP Normal [facility] GLUCOSE, BLOOD (POC)on 11-08 Glucose [Mass/Vol] 103 mg/dL Abnormal 74 - 99 mg/dL [facility] Comment on above: Location:[facility], [address] [place] [address], [address] The Accu-Chek Inform II glucose meter has [...] Interpretation and review of laboratory results Abnormal [facility] NM PET/CT SKULL-THIGH SUBQon 11-08-2024 [place] PET/CT SKULL-THIGH SUBQ * * *Final Report* [...] * Uptake Time: 54 minutes * Radiopharmaceutical: K53-Hspuaojdidwpbxfqro (FDG) COMPARISON: FDG PET/CT 05/31/2024 CORRELATION: No [...] given nasopharynge (more content not included)... Normal [facility] CBC W Auto Differential pane l (Bld)on 11-03-2024 Basophils (Bld) [#/Vol] 0.08 10*3/uL Normal <0.11 [facility] Comment on above: Order Comment: Speci men Type: BLOOD SPECIMENOrdering Facility: [facility] Address: [address] [place] [address] Performed By: #### 5 7021-8 ####[facility] ER [id number] [place] [address] [place] Basophils/100 WBC (Bld) 1.1 % Normal [facility] Comment on above: Order Comment: Speci men Type: BLOOD SPECIMENOrdering Facility: [facility] Address: [address] [place] [address] Performed By: #### 5 7021-8 ####[facility] ER [id number] [place] [address] [place] Differential cell count method Nom (Bld) Auto Normal [facility] Comment on above: Order Comment: Speci men Type: BLOOD SPECIMENOrdering Facility: [facility] Address: [address] [place] [address] Performed By: #### 5 7021-8 ####[facility] ER [id number] [place] [address] [place] Eosinophils (Bld) [#/Vol] 0.17 10*3/uL Normal <0.46 [facility] Comment on above: Order Comment: Speci men Type: BLOOD SPECIMENOrdering Facility: [facility] Address: [address] [place] [address] Performed By: #### 5 7021-8 ####[facility]ITALNCMO[facility] [id number] [place] [address] [place] Eosinophils/100 WBC (Bld) 2.3 % Normal [facility] Comment on above: Order Comment: Speci men Type: BLOOD SPECIMENOrdering Facility: [facility] Address: [address] [place] [address] Performed By: #### 5 7021-8 ####[facility]ITALNCM[facility] [id number] [place] [address] [place] Erythrocyte distribution width (RBC) [Ratio] 15.8 % High 11.5-15.0 [facility] Comment on above: Order Comment: Speci men Type: BLOOD SPECIMENOrdering Facility: [facility] Address: [address] [place] [address] Performed By: #### 5 7021-8 ####[facility] ER [id number] [place] [address] [place] Hematocrit (Bld) [Volume fraction] 37.6 % Low 39.0-51.0 [facility] Comment on above: Order Comment: Speci men Type: BLOOD SPECIMENOrdering Facility: [facility] Address: [address] [place] [address] Performed By: #### 5 7021-8 ####[facility]ENTERA [id number] [place] [address] [place] Hemoglobin (Bld) [Mass/Vol] 11.9 g/dL Low 13.0-17.0 [facility] Comment on above: Order Comment: Speci men Type: BLOOD SPECIMENOrdering Facility: [facility] Address: [address] [place] [address] Performed By: #### 5 7021-8 ####[facility] MILLTOWNCLIA [id number] [place] [address] [place] Immature granulocytes (Bld) [#/Vol] 0.14 10*3/uL High <0.10 [facility] Comment on above: Order Comment: Speci men Type: BLOOD SPECIMENOrdering Facility: [facility] Address: [address] [place] [address] Performed By: #### 5 7021-8 ####[facility] MILLWNCLIA [id number] [place] [address] [place] Immature granulocytes/100 WBC (Bld) 1.9 % Normal [facility] Comment on above: Order Comment: Speci men Type: BLOOD SPECIMENOrdering Facility: [facility] Address: [address] [place] [address] Performed By: #### 5 7021-8 ####[facility] CLINICLIA [id number] [place] [address] [place] Lymphocytes (Bld) [#/Vol] 1.17 10*3/uL Normal 1.00-4.00 [facility] Comment on above: Order Comment: Speci men Type: BLOOD SPECIMENOrdering Facility: [facility] Address: [address] [place] [address] Performed By: #### 5 7021-8 ####[facility] MILLTOWNCLIA [id number] [place] [address] [place] Lymphocytes/100 WBC (Bld) 15.6 % Normal [facility] Comment on above: Order Comment: Speci men Type: BLOOD SPECIMENOrdering Facility: [facility] Address: [address] [place] [address] Performed By: #### 5 7021-8 ####[facility] MILLWNCLIA [id number] [place] [address] [place] MCH (RBC) [Entitic mass] 27.9 pg Normal 26.0-34.0 [facility] Comment on above: Order Comment: Speci men Type: BLOOD SPECIMENOrdering Facility: [facility] Address: [address] [place] [address] Performed By: #### 5 7021-8 ####[facility]PITALLEIGHTON [id number] [place] [address] [place] MCHC (RBC) [Mass/Vol] 31.6 g/dL Normal 30.5-36.0 [facility] Comment on above: Order Comment: Speci men Type: BLOOD SPECIMENOrdering Facility: [facility] Address: [address] [place] [address] Performed By: #### 5 7021-8 ####[facility] HOSPITALNCMaricruz [id number] [address] [place] MCV (RBC) [Entitic vol] 88.3 fL Normal 80.0-100.0 [facility] Comment on above: Order Comment: Speci men Type: BLOOD SPECIMENOrdering Facility: [facility] Address: [address] [place] [address] Performed By: #### 5 7021-8 ####[facility] HOSPITALNCRAJEEV [id number] [place] [address] [place] Monocytes (Bld) [#/Vol] 0.51 10*3/uL Normal <0.87 [facility] Comment on above: Order Comment: Speci men Type: BLOOD SPECIMENOrdering Facility: [facility] Address: [address] [place] [address] Performed By: #### 5 7021-8 ####[facility]ITALNCLI [id number] [place] [address] [place] Monocytes/100 WBC (Bld) 6.8 % Normal [facility] Comment on above: Order Comment: Speci men Type: BLOOD SPECIMENOrdering Facility: [facility] Address: [address] [place] [address] Performed By: #### 5 7021-8 ####[facility] KIESHAAMANDALIA [id number] [place] [address] [place] Neutrophils (Bld) [#/Vol] 5.42 10*3/uL Normal 1.45-7.50 [facility] Comment on above: Order Comment: Speci men Type: BLOOD SPECIMENOrdering Facility: [facility] Address: [address] [place] [address] Performed By: #### 5 7021-8 ####[facility] CLINICLIA [id number] [place] [address] [place] Neutrophils/100 WBC (Bld) 72.3 % Normal [facility] Comment on above: Order Comment: Speci men Type: BLOOD SPECIMENOrdering Facility: [facility] Address: [address] [place] [address] Performed By: #### 5 7021-8 ####[facility]ENTERA [id number] [place] [address] [place] Nucleated RBC (Bld) [#/Vol] 10*3/uL Normal <0.01 [facility] Comment on above: Order Comment: Speci men Type: BLOOD SPECIMENOrdering Facility: [facility] Address: [address] [place] [address] Performed By: #### 5 7021-8 ####[facility]ITALNCLIA [id number] [place] [address] [place] Nucleated RBC/100 WBC (Bld) [Ratio] 0.0 /100 WBC Normal [facility] Comment on above: Order Comment: Speci men Type: BLOOD SPECIMENOrdering Facility: [facility] Address: [address] [place] [address] Performed By: #### 5 7021-8 ####[facility] MILLBENWNCLIA [id number] [place] [address] [place] Platelet mean volume (Bld) [Entitic vol] 7.6 fL Low 9.0-12.7 [facility] Comment on above: Order Comment: Speci men Type: BLOOD SPECIMENOrdering Facility: [facility] Address: [address] [place], [place] [address] Performed By: #### 5 7021-8 ####[facility] KIESHAWDENITALIA [id number] [place] [address] [place] Platelets (Bld) [#/Vol] 288 10*3/uL Normal 150-400 [facility] Comment on above: Order Comment: Speci men Type: BLOOD SPECIMENOrdering Facility: [facility] Address: [address] [place], [place] [address] Performed By: #### 5 7021-8 ####[facility] KIESHAWDENITALIA [id number] [place] [address] [place] RBC (Bld) [#/Vol] 4.26 10*6/uL Normal 4.20-6.00 [facility] Comment on above: Order Comment: Speci men Type: BLOOD SPECIMENOrdering Facility: [facility] Address: [address] [place] [address] Performed By: #### 5 7021-8 ####[facility] YENIFERWNCLIA [id number] [place] [address] [place] WBC (Bld) [#/Vol] 7.49 10*3/uL Normal 3.70-11.00 [facility] Comment on above: Order Comment: Speci men Type: BLOOD SPECIMENOrdering Facility: [facility] Address: [address] [place], [place] [address] Performed By: #### 5 7021-8 ####[facility] CHILDRENNCLIA [id number] [place] [address] [place] CNOVSPon 11-03-2024 CNOVSP Normal [facility] Comprehensive metabolic 2000 panelon 11-03-2024 Albumin [Mass/Vol] 4.2 g/dL Normal 3.9-4.9 [facility] Comment on above: Order Comment: Speci men Type: BLOOD SPECIMENOrdering Facility: [facility] Address: [address] [place] [address] Performed By: #### 2 4323-8 ####[facility] MILLWHITE HEATHNCLIA [id number] [place] [address] [place] ALP [Catalytic activity/Vol] 110 U/L Normal 38-113 [facility] Comment on above: Order Comment: Speci men Type: BLOOD SPECIMENOrdering Facility: [facility] Address: [address] [place] [address] Performed By: #### 2 4323-8 ####[facility] CLINICLIA [id number] [place] [address] [place] ALT [Catalytic activity/Vol] 25 U/L Normal 10-54 [facility] Comment on above: Order Comment: Speci men Type: BLOOD SPECIMENOrdering Facility: [facility] Address: [address] [place] [address] Performed By: #### 2 4323-8 ####[facility]ITALNCLIA [id number] [place] [address] [place] Anion gap [Moles/Vol] 8 mmol/L Normal 8-15 [facility] Comment on above: Order Comment: Speci men Type: BLOOD SPECIMENOrdering Facility: [facility] Address: [address] [place] [address] Performed By: #### 2 4323-8 ####[facility]ITALNCLIA [id number] [place] [address] [place] AST [Catalytic activity/Vol] 20 U/L Normal 14-40 [facility] Comment on above: Order Comment: Speci men Type: BLOOD SPECIMENOrdering Facility: [facility] Address: [address] [place] [address] Performed By: #### 2 4323-8 ####[facility] HOSPITALWNCLIA [id number] [place] [address] [place] Bilirubin [Mass/Vol] 0.2 mg/dL Normal 0.2-1.3 [facility] Comment on above: Order Comment: Speci men Type: BLOOD SPECIMENOrdering Facility: [facility] Address: [address] [place] [address] Performed By: #### 2 4323-8 ####[facility]ITALNCLIA [id number] [place] [address] [place] Calcium [Mass/Vol] 10.0 mg/dL Normal 8.5-10.2 [facility] Comment on above: Order Comment: Speci men Type: BLOOD SPECIMENOrdering Facility: [facility] Address: [address] [place] [address] Performed By: #### 2 4323-8 ####[facility]ITALNCLIA [id number] [place] [address] [place] Chloride [Moles/Vol] 103 mmol/L Normal 98-107 [facility] Comment on above: Order Comment: Speci men Type: BLOOD SPECIMENOrdering Facility: [facility] Address: [address] [place] [address] Performed By: #### 2 4323-8 ####[facility]ITALNCLIA [id number] [place] [address] [place] CO2 [Moles/Vol] 29 mmol/L Normal 22-30 [facility] Comment on above: Order Comment: Speci men Type: BLOOD SPECIMENOrdering Facility: [facility] Address: [address] [place] [address] Performed By: #### 2 4323-8 ####[facility] KIESHAWHITE HEATHDENITAMO[facility] [id number] [address] [place] Creatinine [Mass/Vol] 0.75 mg/dL Normal 0.73-1.22 [facility] Comment on above: Order Comment: Speci men Type: BLOOD SPECIMENOrdering Facility: [facility] Address: [address] [place] [address] Performed By: #### 2 4323-8 ####[facility] CLINICLI [id number] [place] [address] [place] Creatinine and Glomerular filtration rate.predicted panel (S/P/Bld) 101 mL/min/1.73m??? Normal >=60 [facility] Comment on above: Order Comment: Fatoui men Type: BLOOD SPECIMENOrdering Facility: [facility] Address: [address] [place] [address] Result Comment: Kisha mated Glomerular Filtration Rate [...] actual GFR. Performed By: #### 2 4323-8 ####[facility] CLINICLIA [id number] [place] [address] [place] Glucose [Mass/Vol] 138 mg/dL High 74-99 [facility] Comment on above: Order Comment: Speci men Type: BLOOD SPECIMENOrdering Facility: [facility] Address: [address] [place] [address] Result Comment: The [place] Diabetes [employer] (ADA) provides guidance for cutoff [...] Standards of Medical Care in Diabetes 2016, [place] [employer]. Diabetes Care. 2016.39(Suppl 1). Performed By: #### 2 4323-8 ####[facility] HOSPITALWDCLIA [id number] [place] [address] [place] Potassium [Moles/Vol] 4.0 mmol/L Normal 3.7-5.1 [facility] Comment on above: Order Comment: Speci men Type: BLOOD SPECIMENOrdering Facility: [facility] Address: [address] [place] [address] Performed By: #### 2 4323-8 ####[facility]ENTERA [id number] [place] [address] [place] Protein [Mass/Vol] 6.8 g/dL Normal 6.3-8.0 [facility] Comment on above: Order Comment: Fatoui men Type: BLOOD SPECIMENOrdering Facility: [facility] Address: [address] [place] [address] Performed By: #### 2 4323-8 ####[facility] CLINICLIA [id number] [place] [address] [place] Sodium [Moles/Vol] 140 mmol/L Normal 136-144 [facility] Comment on above: Order Comment: Speci men Type: BLOOD SPECIMENOrdering Facility: [facility] Address: [address] [place] [address] Performed By: #### 2 4323-8 ####[facility] CLINICLIA [id number] [place] [address] [place] Urea nitrogen [Mass/Vol] 9 mg/dL Normal 9-24 [facility] Comment on above: Order Comment: Speci men Type: BLOOD SPECIMENOrdering Facility: [facility] Address: [address] [place] [address] Performed By: #### 2 4323-8 ####[facility]ITALNCLIA [id number] [place] [address] [place] CNPNon 10-21-2024 CNPN Normal [facility] CBC W Auto Differential pane l (Bld)on 10-14-2024 Basophils (Bld) [#/Vol] 0.12 10*3/uL High <0.11 [facility] Comment on above: Order Comment: Speci men Type: BLOOD SPECIMENOrdering Facility: [facility] Address: [address] [place] [address] Performed By: #### 5 7021-8 ####[facility] HOSPITALWNCLIA [id number] [address] LABORATORYCLIA [id number] [place] [address] [place] Basophils/100 WBC (Bld) 2.0 % Normal [facility] Comment on above: Order Comment: Speci men Type: BLOOD SPECIMENOrdering Facility: [facility] Address: [address] [place] [address] Performed By: #### 5 7021-8 ####[facility]ITALNCLIA [id number] [address] LABORATORYCLIA [id number] [place] [address] [place] Dacrocytes LM Ql (Bld) Few Normal [facility] Comment on above: Order Comment: Speci men Type: BLOOD SPECIMENOrdering Facility: [facility] Address: [address] [place] [address] Performed By: #### 5 7021-8 ####[facility] MILLTOWNCLIA [id number] [address] LABORATORYCLIA [id number] [place] [address] [place] Differential cell count method Nom (Bld) Manual Normal [facility] Comment on above: Order Comment: Speci men Type: BLOOD SPECIMENOrdering Facility: [facility] Address: [address] [place] [address] Performed By: #### 5 7021-8 ####[facility] MILLWNCLIA [id number] [address] LABORATORYCLIA [id number] [place] [address] [place] Eosinophils (Bld) [#/Vol] 0.18 10*3/uL Normal <0.46 [facility] Comment on above: Order Comment: Speci men Type: BLOOD SPECIMENOrdering Facility: [facility] Address: [address] [place] [address] Performed By: #### 5 7021-8 ####[facility] HOSPITALWNCLIA [id number] [address] LABORATORYCLIA [id number] [place] [address] [place] Eosinophils/100 WBC (Bld) 3.0 % Normal [facility] Comment on above: Order Comment: Speci men Type: BLOOD SPECIMENOrdering Facility: [facility] Address: [address] [place] [address] Performed By: #### 5 7021-8 ####[facility] MILLWNCLIA [id number] [address] LABORATORYCLIA [id number] [place] [address] [place] Erythrocyte distribution width (RBC) [Ratio] 14.7 % Normal 11.5-15.0 [facility] [place] Comment on above: Order Comment: Speci men Type: BLOOD SPECIMENOrdering Facility: [facility] Address: [address] [place] [address] Performed By: #### 5 7021-8 ####[facility] HOSPITALWNCLIA [id number] [address] LABORATORYCLIA [id number] [place] [address] [place] Hematocrit (Bld) [Volume fraction] 37.4 % Low 39.0-51.0 [facility] Comment on above: Order Comment: Speci men Type: BLOOD SPECIMENOrdering Facility: [facility] Address: [address] [place] [address] Performed By: #### 5 7021-8 ####[facility] CLINICLIA [id number] [address] LABORATORYCLIA [id number] [place] [address] [place] Hemoglobin (Bld) [Mass/Vol] 12.2 g/dL Low 13.0-17.0 [facility] Comment on above: Order Comment: Speci men Type: BLOOD SPECIMENOrdering Facility: [facility] Address: [address] [place] [address] Performed By: #### 5 7021-8 ####[facility] CLINICLIA [id number] [address] LABORATORYIA [id number] [place] [address] [place] Lymphocytes (Bld) [#/Vol] 1.17 10*3/uL Normal 1.00-4.00 [facility] Comment on above: Order Comment: Speci men Type: BLOOD SPECIMENOrdering Facility: [facility] Address: [address] [place] [address] Performed By: #### 5 7021-8 ####[facility] MILLTOWNCLIA [id number] [address] LABORATORYCLIA [id number] [address] [place] Lymphocytes/100 WBC (Bld) 19.0 % Normal [facility] Comment on above: Order Comment: Speci men Type: BLOOD SPECIMENOrdering Facility: [facility] Address: [address] [place] [address] Performed By: #### 5 7021-8 ####[facility] MILLTOWNCLIA [id number] [address] LABORATORYCLIA [id number] [place] [address] [place] MCH (RBC) [Entitic mass] 28.4 pg Normal 26.0-34.0 [facility] Comment on above: Order Comment: Speci men Type: BLOOD SPECIMENOrdering Facility: [facility] Address: [address] [place] [address] Performed By: #### 5 7021-8 ####[facility] KIESHATOWNCLIA [id number] [address] LABORATORYCLIA [id number] [place] [address] [place] MCHC (RBC) [Mass/Vol] 32.6 g/dL Normal 30.5-36.0 [facility] Comment on above: Order Comment: Speci men Type: BLOOD SPECIMENOrdering Facility: [facility] Address: [address] [place] [address] Performed By: #### 5 7021-8 ####[facility] MILLTOWNCLIA [id number] [address] LABORATORYCLIA [id number] [place] [address] [place] MCV (RBC) [Entitic vol] 87.2 fL Normal 80.0-100.0 [facility] Comment on above: Order Comment: Speci men Type: BLOOD SPECIMENOrdering Facility: [facility] Address: [address] [place] [address] Performed By: #### 5 7021-8 ####[facility] MILLWNCLIA [id number] [address] LABORATORYCLIA [id number] [place] [address] [place] Metamyelocytes/100 WBC (Bld) 3.0 % Normal [facility] Comment on above: Order Comment: Speci men Type: BLOOD SPECIMENOrdering Facility: [facility] Address: [address] [place] [address] Performed By: #### 5 7021-8 ####[facility]ITALWNCLIA [id number] [address] LABORATORYCLIA [id number] [place] [address] [place] Monocytes (Bld) [#/Vol] 0.31 10*3/uL Normal <0.87 [facility] Comment on above: Order Comment: Speci men Type: BLOOD SPECIMENOrdering Facility: [facility] Address: [address] [place] [address] Performed By: #### 5 7021-8 ####[facility] MILLTOWNCLIA [id number] [address] LABORATORYCLIA [id number] [place] [address] [place] Monocytes/100 WBC (Bld) 5.0 % Normal [facility] Comment on above: Order Comment: Speci men Type: BLOOD SPECIMENOrdering Facility: [facility] Address: [address] [place] [address] Performed By: #### 5 7021-8 ####[facility] MILLTOWNCLIA [id number] [address] LABORATORYCLIA [id number] [place] [address] [place] MYELO% 1.0 % Normal [facility] Comment on above: Order Comment: Speci men Type: BLOOD SPECIMENOrdering Facility: [facility] Address: [address] [place] [address] Performed By: #### 5 7021-8 ####[facility]ITALWNCLIA [id number] [address] LABORATORYCLIA [id number] [place] [address] [place] Neutrophils (Bld) [#/Vol] 4.13 10*3/uL Normal 1.45-7.50 [facility] Comment on above: Order Comment: Speci men Type: BLOOD SPECIMENOrdering Facility: [facility] Address: [address] [place] [address] Performed By: #### 5 7021-8 ####[facility] CENTERTOWNCLIA [id number] [address] LABORATORYCLIA [id number] [place] [address] [place] Neutrophils/100 WBC (Bld) 67.0 % Normal [facility] Comment on above: Order Comment: Speci men Type: BLOOD SPECIMENOrdering Facility: [facility] Address: [address] [place] [address] Performed By: #### 5 7021-8 ####[facility] MILLTOWNCLIA [id number] [address] LABORATORYCLIA [id number] [place] [address] [place] Nucleated RBC (Bld) [#/Vol] 10*3/uL Normal <0.01 [facility] Comment on above: Order Comment: Speci men Type: BLOOD SPECIMENOrdering Facility: [facility] Address: [address] [place] [address] Performed By: #### 5 7021-8 ####[facility]ITALWDCLIA [id number] [address] LABORATORYCLIA [id number] [place] [address] [place] Nucleated RBC/100 WBC (Bld) [Ratio] 0.0 /100 WBC Normal [facility] Comment on above: Order Comment: Speci men Type: BLOOD SPECIMENOrdering Facility: [facility] Address: [address] [place] [address] Performed By: #### 5 7021-8 ####[facility]ENTERA [id number] [address] LABORATORYCLIA [id number] [place] [address] [place] Ovalocytes LM Ql (Bld) Few Normal [facility] Comment on above: Order Comment: Speci men Type: BLOOD SPECIMENOrdering Facility: [facility] Address: [address] [place] [address] Performed By: #### 5 7021-8 ####[facility] CLINICLIA [id number] [address] LABORATORYCLIA [id number] [place] [address] [place] Platelet mean volume (Bld) [Entitic vol] 8.2 fL Low 9.0-12.7 [facility] Comment on above: Order Comment: Speci men Type: BLOOD SPECIMENOrdering Facility: [facility] Address: [address] [place] [address] Performed By: #### 5 7021-8 ####[facility] MILLTOWNCLIA [id number] [address] LABORATORYCLIA [id number] [place] [address] [place] Platelets (Bld) [#/Vol] 288 10*3/uL Normal 150-400 [facility] Comment on above: Order Comment: Speci men Type: BLOOD SPECIMENOrdering Facility: [facility] Address: [address] [place] [address] Performed By: #### 5 7021-8 ####[facility]INICLIA [id number] [address] LABORATORYCLIA [id number] [place] [address] [place] Platelets Estimate (Bld) [#/Vol] Adequate Normal [facility] Comment on above: Order Comment: Speci men Type: BLOOD SPECIMENOrdering Facility: [facility] Address: [address] [place] [address] Performed By: #### 5 7021-8 ####[facility]ITALWNCLIA [id number] [address] LABORATORYCLIA [id number] [place] [address] [place] Polychromasia LM Ql (Bld) Slight Normal [facility] Comment on above: Order Comment: Speci men Type: BLOOD SPECIMENOrdering Facility: [facility] Address: [address] [place] [address] Performed By: #### 5 7021-8 ####[facility] CENTERTOWNCLIA [id number] [address] LABORATORYCLIA [id number] [place] [address] [place] RBC (Bld) [#/Vol] 4.29 10*6/uL Normal 4.20-6.00 [facility] Comment on above: Order Comment: Speci men Type: BLOOD SPECIMENOrdering Facility: [facility] Address: [address] [place] [address] Performed By: #### 5 7021-8 ####[facility] MILLTOWNCLIA [id number] [address] LABORATORYCLIA [id number] [place] [address] [place] RED CELL MORPH Reviewed: see result s of individual morphologies Normal [facility] Comment on above: Order Comment: Speci men Type: BLOOD SPECIMENOrdering Facility: [facility] Address: [address] [place] [address] Performed By: #### 5 7021-8 ####[facility]ITALWNCLIA [id number] [address] LABORATORYCLIA [id number] [place] [address] [place] WBC (Bld) [#/Vol] 6.16 10*3/uL Normal 3.70-11.00 [facility] Comment on above: Order Comment: Speci men Type: BLOOD SPECIMENOrdering Facility: [facility] Address: [address] [place] [address] Performed By: #### 5 7021-8 ####[facility]ITALWNCLIA [id number] [address] LABORATORYCLIA [id number] [address] [place] WBC Left Shift Ql (Bld) Present Normal [facility] Comment on above: Order Comment: Speci men Type: BLOOD SPECIMENOrdering Facility: [facility] Address: [address] [place] [address] Performed By: #### 5 7021-8 ####[facility] HOSPITALNCYOHANAA [id number] [address] LABORATORYCLIA [id number] [address] CBC W Auto Differential pane l (Bld)on 10-06-2024 Basophils (Bld) [#/Vol] 0.09 10*3/uL Normal <0.11 [facility] Comment on above: Order Comment: Speci men Type: BLOOD SPECIMENOrdering Facility: [facility] Address: [address] [place] [address] Performed By: #### 5 7021-8 ####[facility] HOSPITALNCA [id number] [place] [address] [place] Basophils/100 WBC (Bld) 1.9 % Normal [facility] Comment on above: Order Comment: Speci men Type: BLOOD SPECIMENOrdering Facility: [facility] Address: [address] [place] [address] Performed By: #### 5 7021-8 ####[facility]OSPITALNCLIA [id number] [place] [address] [place] [facility] Differential cell count method Nom (Bld) Auto Normal [facility] Comment on above: Order Comment: Speci men Type: BLOOD SPECIMENOrdering Facility: [facility] Address: [address] [place] [address] Performed By: #### 5 7021-8 ####[facility] HOSPITALNCA [id number] [place] [address] [place] Eosinophils (Bld) [#/Vol] 0.19 10*3/uL Normal <0.46 [facility] Comment on above: Order Comment: Speci men Type: BLOOD SPECIMENOrdering Facility: [facility] Address: [address] [place] [address] Performed By: #### 5 7021-8 ####[facility] MGIUEL [id number] [place] [address] [place] Eosinophils/100 WBC (Bld) 4.0 % Normal [facility] Comment on above: Order Comment: Speci men Type: BLOOD SPECIMENOrdering Facility: [facility] Address: [address] [place] [address] Performed By: #### 5 7021-8 ####[facility] KIESHAWHITE HEATHNCYOHANAMaricruz [id number] [place] [address] [place] Erythrocyte distribution width (RBC) [Ratio] 15.4 % High 11.5-15.0 [facility] Comment on above: Order Comment: Speci men Type: BLOOD SPECIMENOrdering Facility: [facility] Address: [address] [place] [address] Performed By: #### 5 7021-8 ####[facility]OSPITALNCYOHANAA [id number] [place] [address] [place] Hematocrit (Bld) [Volume fraction] 39.6 % Normal 39.0-51.0 [facility] [place] Comment on above: Order Comment: Speci men Type: BLOOD SPECIMENOrdering Facility: [facility] Address: [address] [place] [address] Performed By: #### 5 7021-8 ####[facility]PITALNCLIA [id number] [place] [address] [place] Hemoglobin (Bld) [Mass/Vol] 13.2 g/dL Normal 13.0-17.0 [facility] [place] Comment on above: Order Comment: Speci men Type: BLOOD SPECIMENOrdering Facility: [facility] Address: [address] [place] [address] Performed By: #### 5 7021-8 ####[facility] MILLWNCLIA [id number] [place] [address] [place] Immature granulocytes (Bld) [#/Vol] 0.06 10*3/uL Normal <0.10 [facility] [place] Comment on above: Order Comment: Speci men Type: BLOOD SPECIMENOrdering Facility: [facility] Address: [address] [place] [address] Performed By: #### 5 7021-8 ####[facility] CLINICLIA [id number] [place] [address] [place] Immature granulocytes/100 WBC (Bld) 1.3 % Normal [facility] [place] Comment on above: Order Comment: Speci men Type: BLOOD SPECIMENOrdering Facility: [facility] Address: [address] [place] [address] Performed By: #### 5 7021-8 ####[facility]ENTERA [id number] [place] [address] [place] Lymphocytes (Bld) [#/Vol] 1.00 10*3/uL Normal 1.00-4.00 [facility] [place] Comment on above: Order Comment: Speci men Type: BLOOD SPECIMENOrdering Facility: [facility] Address: [address] [place] [address] Performed By: #### 5 7021-8 ####[facility]A [id number] [place] [address] [place] Lymphocytes/100 WBC (Bld) 21.1 % Normal [facility] [place] Comment on above: Order Comment: Speci men Type: BLOOD SPECIMENOrdering Facility: [facility] Address: [address] [place] [address] Performed By: #### 5 7021-8 ####[facility]ICLI [id number] [place] [address] [place] MCH (RBC) [Entitic mass] 28.4 pg Normal 26.0-34.0 [facility] [place] Comment on above: Order Comment: Speci men Type: BLOOD SPECIMENOrdering Facility: [facility] Address: [address] [place] [address] Performed By: #### 5 7021-8 ####[facility]ITALNCM[facility] [id number] [place] [address] [place] MCHC (RBC) [Mass/Vol] 33.3 g/dL Normal 30.5-36.0 [facility] [place] Comment on above: Order Comment: Speci men Type: BLOOD SPECIMENOrdering Facility: [facility] Address: [address] [place], [place] [address] Performed By: #### 5 7021-8 ####[facility] ER [id number] [place] [address] [place] MCV (RBC) [Entitic vol] 85.2 fL Normal 80.0-100.0 [facility] [place] Comment on above: Order Comment: Speci men Type: BLOOD SPECIMENOrdering Facility: [facility] Address: [address] [place] [address] Performed By: #### 5 7021-8 ####[facility] ER [id number] [place] [address] [place] Monocytes (Bld) [#/Vol] 0.46 10*3/uL Normal <0.87 [facility] [place] Comment on above: Order Comment: Speci men Type: BLOOD SPECIMENOrdering Facility: [facility] Address: [address] [place] [address] Performed By: #### 5 7021-8 ####[facility]ITALNCMO[facility] [id number] [place] [address] [place] Monocytes/100 WBC (Bld) 9.7 % Normal [facility] [place] Comment on above: Order Comment: Speci men Type: BLOOD SPECIMENOrdering Facility: [facility] Address: [address] [place] [address] Performed By: #### 5 7021-8 ####[facility] KIESHATOWNCLIA [id number] [place] [address] [place] Neutrophils (Bld) [#/Vol] 2.93 10*3/uL Normal 1.45-7.50 [facility] [place] Comment on above: Order Comment: Speci men Type: BLOOD SPECIMENOrdering Facility: [facility] Address: [address] [place] [address] Performed By: #### 5 7021-8 ####[facility] MILLWNCLIA [id number] [place] [address] [place] Neutrophils/100 WBC (Bld) 62.0 % Normal [facility] [place] Comment on above: Order Comment: Speci men Type: BLOOD SPECIMENOrdering Facility: [facility] Address: [address] [place] [address] Performed By: #### 5 7021-8 ####[facility] KIESHAWNCLIA [id number] [place] [address] [place] Nucleated RBC (Bld) [#/Vol] 10*3/uL Normal <0.01 [facility] [place] Comment on above: Order Comment: Speci men Type: BLOOD SPECIMENOrdering Facility: [facility] Address: [address] [place] [address] Performed By: #### 5 7021-8 ####[facility] MILLTOWNCLIA [id number] [place] [address] [place] Nucleated RBC/100 WBC (Bld) [Ratio] 0.0 /100 WBC Normal [facility] [place] Comment on above: Order Comment: Speci men Type: BLOOD SPECIMENOrdering Facility: [facility] Address: [address] [place] [address] Performed By: #### 5 7021-8 ####[facility] HOSPITALDENITALIA [id number] [place] [address] [place] Platelet mean volume (Bld) [Entitic vol] 8.1 fL Low 9.0-12.7 [facility] [place] Comment on above: Order Comment: Speci men Type: BLOOD SPECIMENOrdering Facility: [facility] Address: [address] [place] [address] Performed By: #### 5 7021-8 ####[facility] HOSPITALDENITALIA [id number] [place] [address] [place] Platelets (Bld) [#/Vol] 253 10*3/uL Normal 150-400 [facility] [place] Comment on above: Order Comment: Speci men Type: BLOOD SPECIMENOrdering Facility: [facility] Address: [address] [place] [address] Performed By: #### 5 7021-8 ####[facility] HOSPITALDENITALIA [id number] [place] [address] [place] RBC (Bld) [#/Vol] 4.65 10*6/uL Normal 4.20-6.00 [facility] Comment on above: Order Comment: Speci men Type: BLOOD SPECIMENOrdering Facility: [facility] Address: [address] [place] [address] Performed By: #### 5 7021-8 ####[facility] CLINICLIA [id number] [place] [address] [place] WBC (Bld) [#/Vol] 4.73 10*3/uL Normal 3.70-11.00 [facility] Comment on above: Order Comment: Speci men Type: BLOOD SPECIMENOrdering Facility: [facility] Address: [address] [place] [address] Performed By: #### 5 7021-8 ####[facility] HOSPITALNCLIA [id number] [place] [address] [place] CNCOon 10-06-2024 CNCO Letter Text Normal [facility] CNOVSPon 10-06-2024 CNOVSP Normal [facility] Comprehensive metabolic 2000 panelon 10-06-2024 Albumin [Mass/Vol] 4.6 g/dL Normal 3.9-4.9 [facility] Comment on above: Order Comment: Speci men Type: BLOOD SPECIMENOrdering Facility: [facility] Address: [address] [place] [address] Performed By: #### 2 4323-8 ####[facility] MILLTOWNCLIA [id number] [place] [address] [place] ALP [Catalytic activity/Vol] 101 U/L Normal 38-113 [facility] [place] Comment on above: Order Comment: Speci men Type: BLOOD SPECIMENOrdering Facility: [facility] Address: [address] [place] [address] Performed By: #### 2 4323-8 ####[facility] MILLTOWNCLIA [id number] [place] [address] [place] ALT [Catalytic activity/Vol] 38 U/L Normal 10-54 [facility] [place] Comment on above: Order Comment: Speci men Type: BLOOD SPECIMENOrdering Facility: [facility] Address: [address] [place] [address] Performed By: #### 2 4323-8 ####[facility] MILLTOWNCLIA [id number] [place] [address] [place] Anion gap [Moles/Vol] 8 mmol/L Normal 8-15 [facility] Comment on above: Order Comment: Speci men Type: BLOOD SPECIMENOrdering Facility: [facility] Address: [address] [place] [address] Performed By: #### 2 4323-8 ####[facility] MILLTOWNCLIA [id number] [place] [address] [place] AST [Catalytic activity/Vol] 38 U/L Normal 14-40 [facility] Comment on above: Order Comment: Speci men Type: BLOOD SPECIMENOrdering Facility: [facility] Address: [address] [place] [address] Performed By: #### 2 4323-8 ####[facility]ITALNCMO[facility] [id number] [place] [address] [place] Bilirubin [Mass/Vol] 0.4 mg/dL Normal 0.2-1.3 [facility] Comment on above: Order Comment: Speci men Type: BLOOD SPECIMENOrdering Facility: [facility] Address: [address] [place] [address] Performed By: #### 2 4323-8 ####[facility]ITALNCMO[facility] [id number] [place] [address] [place] Calcium [Mass/Vol] 10.2 mg/dL Normal 8.5-10.2 [facility] Comment on above: Order Comment: Speci men Type: BLOOD SPECIMENOrdering Facility: [facility] Address: [address] [place] [address] Performed By: #### 2 4323-8 ####[facility] ER [id number] [place] [address] [place] Chloride [Moles/Vol] 104 mmol/L Normal 98-107 [facility] Comment on above: Order Comment: Speci men Type: BLOOD SPECIMENOrdering Facility: [facility] Address: [address] [place] [address] Performed By: #### 2 4323-8 ####[facility]ENTERA [id number] [place] [address] [place] CO2 [Moles/Vol] 28 mmol/L Normal 22-30 [facility] Comment on above: Order Comment: Speci men Type: BLOOD SPECIMENOrdering Facility: [facility] Address: [address] [place] [address] Performed By: #### 2 4323-8 ####[facility] ER [id number] [address] [place] Creatinine [Mass/Vol] 0.82 mg/dL Normal 0.73-1.22 [facility] Comment on above: Order Comment: Speci men Type: BLOOD SPECIMENOrdering Facility: [facility] Address: [address] [place] [address] Performed By: #### 2 4323-8 ####[facility] HOSPITALNCLI [id number] [place] [address] [place] Creatinine and Glomerular filtration rate.predicted panel (S/P/Bld) 98 mL/min/1.73m??? Normal >=60 [facility] Comment on above: Order Comment: Augustine men Type: BLOOD SPECIMENOrdering Facility: [facility] Address: [address] [place] [address] Result Comment: Kisha mated Glomerular Filtration Rate [...] actual GFR. Performed By: #### 2 4323-8 ####[facility]ENTERA [id number] [place] [address] [place] Glucose [Mass/Vol] 172 mg/dL High 74-99 [facility] Comment on above: Order Comment: Speci men Type: BLOOD SPECIMENOrdering Facility: [facility] Address: [address] [place] [address] Result Comment: The [place] [employer] (ADA) provides guidance for cutoff [...] Standards of Medical Care in Diabetes 2016, [place] [employer]. Diabetes Care. 2016.39(Suppl 1). Performed By: #### 2 4323-8 ####[facility] MILLTOWNCLIA [id number] [place] [address] [place] Potassium [Moles/Vol] 4.0 mmol/L Normal 3.7-5.1 [facility] [place] Comment on above: Order Comment: Fatoui men Type: BLOOD SPECIMENOrdering Facility: [facility] Address: [address] [place] [address] Performed By: #### 2 4323-8 ####[facility]PITALWNCLIA [id number] [place] [address] [place] Protein [Mass/Vol] 7.0 g/dL Normal 6.3-8.0 [facility] Comment on above: Order Comment: Fatoui saadia Type: BLOOD SPECIMENOrdering Facility: [facility] Address: [address] [place] [address] Performed By: #### 2 4323-8 ####[facility] HOSPITALWNCLIA [id number] [place] [address] [place] Sodium [Moles/Vol] 140 mmol/L Normal 136-144 [facility] Comment on above: Order Comment: Fatoui men Type: BLOOD SPECIMENOrdering Facility: [facility] Address: [address] [place] [address] Performed By: #### 2 4323-8 ####[facility] HOSPITALWNCLIA [id number] [place] [address] [place] Urea nitrogen [Mass/Vol] 8 mg/dL Low 9-24 [facility] [place] Comment on above: Order Comment: Speci men Type: BLOOD SPECIMENOrdering Facility: [facility] Address: [address] [place] [address] Performed By: #### 2 4323-8 ####[facility] HOSPITALNCA [id number] [place] [address] [place] CBC W Auto Differential pane l (Bld)on 09-23-2024 Basophils (Bld) [#/Vol] 0.08 10*3/uL Normal <0.11 [facility] Comment on above: Order Comment: Speci men Type: BLOOD SPECIMENOrdering Facility: [facility] Address: [address] [place] [address] Performed By: #### 5 7021-8 ####[facility] HOSPITALNCA [id number] [place] [address] [place] Basophils/100 WBC (Bld) 1.8 % Normal [facility] Comment on above: Order Comment: Speci men Type: BLOOD SPECIMENOrdering Facility: [facility] Address: [address] [place] [address] Performed By: #### 5 7021-8 ####[facility]A [id number] [place] [address] [place] Differential cell count method Nom (Bld) Auto Normal [facility] Comment on above: Order Comment: Speci men Type: BLOOD SPECIMENOrdering Facility: [facility] Address: [address] [place] [address] Performed By: #### 5 7021-8 ####[facility]ITALNCLIA [id number] [place] [address] [place] Eosinophils (Bld) [#/Vol] 0.23 10*3/uL Normal <0.46 [facility] [place] Comment on above: Order Comment: Speci men Type: BLOOD SPECIMENOrdering Facility: [facility] Address: [address] [place] [address] Performed By: #### 5 7021-8 ####[facility] KIESHAHENRY [id number] [place] [address] [place] Eosinophils/100 WBC (Bld) 5.3 % Normal [facility] Comment on above: Order Comment: Speci men Type: BLOOD SPECIMENOrdering Facility: [facility] Address: [address] [place] [address] Performed By: #### 5 7021-8 ####[facility] HOSPITALNCRAJEEV [id number] [place] [address] [place] Erythrocyte distribution width (RBC) [Ratio] 15.3 % High 11.5-15.0 [facility] Comment on above: Order Comment: Speci men Type: BLOOD SPECIMENOrdering Facility: [facility] Address: [address] [place] [address] Performed By: #### 5 7021-8 ####[facility]PITALNCLIA [id number] [place] [address] [place] Hematocrit (Bld) [Volume fraction] 36.3 % Low 39.0-51.0 [facility] [place] Comment on above: Order Comment: Speci men Type: BLOOD SPECIMENOrdering Facility: [facility] Address: [address] [place] [address] Performed By: #### 5 7021-8 ####[facility]ITALNCLIA [id number] [place] [address] [place] Hemoglobin (Bld) [Mass/Vol] 11.9 g/dL Low 13.0-17.0 [facility] Comment on above: Order Comment: Speci men Type: BLOOD SPECIMENOrdering Facility: [facility] Address: [address] [place] [address] Performed By: #### 5 7021-8 ####[facility] HOSPITALWNCLIA [id number] [place] [address] [place] Immature granulocytes (Bld) [#/Vol] 0.11 10*3/uL High <0.10 [facility] Comment on above: Order Comment: Speci men Type: BLOOD SPECIMENOrdering Facility: [facility] Address: [address] [place] [address] Performed By: #### 5 7021-8 ####[facility] CLINICLIA [id number] [place] [address] [place] Immature granulocytes/100 WBC (Bld) 2.5 % Normal [facility] Comment on above: Order Comment: Speci men Type: BLOOD SPECIMENOrdering Facility: [facility] Address: [address] [place] [address] Performed By: #### 5 7021-8 ####[facility] ER [id number] [place] [address] [place] Lymphocytes (Bld) [#/Vol] 0.97 10*3/uL Low 1.00-4.00 [facility] Comment on above: Order Comment: Speci men Type: BLOOD SPECIMENOrdering Facility: [facility] Address: [address] [place] [address] Performed By: #### 5 7021-8 ####[facility]A [id number] [place] [address] [place] Lymphocytes/100 WBC (Bld) 22.3 % Normal [facility] Comment on above: Order Comment: Speci men Type: BLOOD SPECIMENOrdering Facility: [facility] Address: [address] [place] [address] Performed By: #### 5 7021-8 ####[facility]OSPITALNCLI [id number] [place] [address] [place] MCH (RBC) [Entitic mass] 28.4 pg Normal 26.0-34.0 [facility] Comment on above: Order Comment: Speci men Type: BLOOD SPECIMENOrdering Facility: [facility] Address: [address] [place] [address] Performed By: #### 5 7021-8 ####[facility] ER [id number] [place] [address] [place] MCHC (RBC) [Mass/Vol] 32.8 g/dL Normal 30.5-36.0 [facility] Comment on above: Order Comment: Speci men Type: BLOOD SPECIMENOrdering Facility: [facility] Address: [address] [place], [place] [address] Performed By: #### 5 7021-8 ####[facility] ER [id number] [place] [address] [place] MCV (RBC) [Entitic vol] 86.6 fL Normal 80.0-100.0 [facility] Comment on above: Order Comment: Speci men Type: BLOOD SPECIMENOrdering Facility: [facility] Address: [address] [place], [place] [address] Performed By: #### 5 7021-8 ####[facility] ER [id number] [place] [address] [place] Monocytes (Bld) [#/Vol] 0.42 10*3/uL Normal <0.87 [facility] Comment on above: Order Comment: Speci men Type: BLOOD SPECIMENOrdering Facility: [facility] Address: [address] [place] [address] Performed By: #### 5 7021-8 ####[facility] ER [id number] [place] [address] [place] Monocytes/100 WBC (Bld) 9.7 % Normal [facility] Comment on above: Order Comment: Speci men Type: BLOOD SPECIMENOrdering Facility: [facility] Address: [address] [place] [address] Performed By: #### 5 7021-8 ####[facility] KIESHAWNCLIA [id number] [place] [address] [place] Neutrophils (Bld) [#/Vol] 2.54 10*3/uL Normal 1.45-7.50 [facility] Comment on above: Order Comment: Speci men Type: BLOOD SPECIMENOrdering Facility: [facility] Address: [address] [place] [address] Performed By: #### 5 7021-8 ####[facility]OSPITALWNCLIA [id number] [place] [address] [place] Neutrophils/100 WBC (Bld) 58.4 % Normal [facility] Comment on above: Order Comment: Speci men Type: BLOOD SPECIMENOrdering Facility: [facility] Address: [address] [place] [address] Performed By: #### 5 7021-8 ####[facility]PITALNCLIA [id number] [place] [address] [place] Nucleated RBC (Bld) [#/Vol] 10*3/uL Normal <0.01 [facility] Comment on above: Order Comment: Speci men Type: BLOOD SPECIMENOrdering Facility: [facility] Address: [address] [place] [address] Performed By: #### 5 7021-8 ####[facility] MILLWNCLIA [id number] [place] [address] [place] Nucleated RBC/100 WBC (Bld) [Ratio] 0.0 /100 WBC Normal [facility] Comment on above: Order Comment: Speci men Type: BLOOD SPECIMENOrdering Facility: [facility] Address: [address] [place] [address] Performed By: #### 5 7021-8 ####[facility] CLINICLIA [id number] [place] [address] [place] Platelet mean volume (Bld) [Entitic vol] 8.6 fL Low 9.0-12.7 [facility] Comment on above: Order Comment: Speci men Type: BLOOD SPECIMENOrdering Facility: [facility] Address: [address] [place] [address] Performed By: #### 5 7021-8 ####[facility] KIESHAGERALDOA [id number] [place] [address] [place] Platelets (Bld) [#/Vol] 247 10*3/uL Normal 150-400 [facility] Comment on above: Order Comment: Speci men Type: BLOOD SPECIMENOrdering Facility: [facility] Address: [address] [place] [address] Performed By: #### 5 7021-8 ####[facility]OSPITALDENITAYOHANAA [id number] [place] [address] [place] RBC (Bld) [#/Vol] 4.19 10*6/uL Low 4.20-6.00 [facility] Comment on above: Order Comment: Speci men Type: BLOOD SPECIMENOrdering Facility: [facility] Address: [address] [place] [address] Performed By: #### 5 7021-8 ####[facility] KIESHAWHITE HEATHDENITALIA [id number] [place] [address] [place] WBC (Bld) [#/Vol] 4.35 10*3/uL Normal 3.70-11.00 [facility] Comment on above: Order Comment: Speci men Type: BLOOD SPECIMENOrdering Facility: [facility] Address: [address] [place] [address] Performed By: #### 5 7021-8 ####[facility]ITALNCLIA [id number] [place] [address] [place] CNPNon 09-23-2024 CNPN Normal [facility] CBC W Auto Differential pane l (Bld)on 09-16-2024 Anisocytosis Ql (Bld) Present Normal [facility] Comment on above: Order Comment: Speci men Type: BLOOD SPECIMENOrdering Facility: [facility] Address: [address] [place] [address] Performed By: #### 5 7021-8 ####[facility] MILLWNCLIA [id number] [address] LABCLIA [id number] [place] [address] [place] Basophils (Bld) [#/Vol] 0.11 10*3/uL High <0.11 [facility] Comment on above: Order Comment: Speci men Type: BLOOD SPECIMENOrdering Facility: [facility] Address: [address] [place] [address] Performed By: #### 5 7021-8 ####[facility] MILLTOWNCLIA [id number] [address] STATES [facility] LABCLIA [id number] [place] [address] [place] Basophils/100 WBC (Bld) 1.8 % Normal [facility] [place] Comment on above: Order Comment: Speci men Type: BLOOD SPECIMENOrdering Facility: [facility] Address: [address] [place] [address] Performed By: #### 5 7021-8 ####[facility] MILLWNCLIA [id number] [address] STATES OF [facility] LABCLIA [id number] [place] [address] [place] Differential cell count method Nom (Bld) Manual Normal [facility] [place] Comment on above: Order Comment: Speci men Type: BLOOD SPECIMENOrdering Facility: [facility] Address: [address] [place] [address] Performed By: #### 5 7021-8 ####[facility] KIESHAWNCLIA [id number] [address] LABCLIA [id number] [place] [address] [place] Eosinophils (Bld) [#/Vol] 0.21 10*3/uL Normal <0.46 [facility] [place] Comment on above: Order Comment: Speci men Type: BLOOD SPECIMENOrdering Facility: [facility] Address: [address] [place] [address] Performed By: #### 5 7021-8 ####[facility]ITALNCLIA [id number] [address] LABCLIA [id number] [place] [address] [place] Eosinophils/100 WBC (Bld) 3.5 % Normal [facility] [place] Comment on above: Order Comment: Speci men Type: BLOOD SPECIMENOrdering Facility: [facility] Address: [address] [place] [address] Performed By: #### 5 7021-8 ####[facility]OSPITALDENITALIA [id number] [address] LABCLIA [id number] [place] [address] [place] Erythrocyte distribution width (RBC) [Ratio] 15.2 % High 11.5-15.0 [facility] [place] Comment on above: Order Comment: Speci men Type: BLOOD SPECIMENOrdering Facility: [facility] Address: [address] [place] [address] Performed By: #### 5 7021-8 ####[facility] [id number] [address] LABCLIA [id number] [place] [address] [place] Hematocrit (Bld) [Volume fraction] 39.3 % Normal 39.0-51.0 [facility] [place] Comment on above: Order Comment: Speci men Type: BLOOD SPECIMENOrdering Facility: [facility] Address: [address] [place] [address] Performed By: #### 5 7021-8 ####[facility] MILLWNCLIA [id number] [address] LABCLIA [id number] [place] [address] [place] Hemoglobin (Bld) [Mass/Vol] 12.5 g/dL Low 13.0-17.0 [facility] [place] Comment on above: Order Comment: Speci men Type: BLOOD SPECIMENOrdering Facility: [facility] Address: [address] [place] [address] Performed By: #### 5 7021-8 ####[facility]ITALWDCLIA [id number] [address] LABCLIA [id number] [place] [address] [place] Lymphocytes (Bld) [#/Vol] 1.17 10*3/uL Normal 1.00-4.00 [facility] [place] Comment on above: Order Comment: Speci men Type: BLOOD SPECIMENOrdering Facility: [facility] Address: [address] [place] [address] Performed By: #### 5 7021-8 ####[facility] MILLTOWNCLIA [id number] [address] LABCLIA [id number] [address] [place] Lymphocytes/100 WBC (Bld) 18.4 % Normal [facility] [place] Comment on above: Order Comment: Speci men Type: BLOOD SPECIMENOrdering Facility: [facility] Address: [address] [place] [address] Performed By: #### 5 7021-8 ####[facility] HOSPITALWNCLIA [id number] [address] LABCLIA [id number] [place] [address] [place] MCH (RBC) [Entitic mass] 28.0 pg Normal 26.0-34.0 [facility] [place] Comment on above: Order Comment: Speci men Type: BLOOD SPECIMENOrdering Facility: [facility] Address: [address] [place] [address] Performed By: #### 5 7021-8 ####[facility]INICLIA [id number] [address] LABCLIA [id number] [place] [address] [place] MCHC (RBC) [Mass/Vol] 31.8 g/dL Normal 30.5-36.0 [facility] [place] Comment on above: Order Comment: Speci men Type: BLOOD SPECIMENOrdering Facility: [facility] Address: [address] [place] [address] Performed By: #### 5 7021-8 ####[facility] HOSPITALWNCLIA [id number] [address] LABCLIA [id number] [place] [address] [place] MCV (RBC) [Entitic vol] 88.1 fL Normal 80.0-100.0 [facility] [place] Comment on above: Order Comment: Speci men Type: BLOOD SPECIMENOrdering Facility: [facility] Address: [address] [place] [address] Performed By: #### 5 7021-8 ####[facility] MILLWNCLIA [id number] [address] LABCLIA [id number] [place] [address] [place] Metamyelocytes/100 WBC (Bld) 1.8 % Normal [facility] [place] Comment on above: Order Comment: Speci men Type: BLOOD SPECIMENOrdering Facility: [facility] Address: [address] [place] [address] Performed By: #### 5 7021-8 ####[facility]ITALNCLIA [id number] [address] LABCLIA [id number] [place] [address] [place] Monocytes (Bld) [#/Vol] 0.05 10*3/uL Normal <0.87 [facility] [place] Comment on above: Order Comment: Speci men Type: BLOOD SPECIMENOrdering Facility: [facility] Address: [address] [place] [address] Performed By: #### 5 7021-8 ####[facility] HOSPITALWNCLIA [id number] [address] LABCLIA [id number] [place] [address] [place] Monocytes/100 WBC (Bld) 0.9 % Normal [facility] [place] Comment on above: Order Comment: Speci men Type: BLOOD SPECIMENOrdering Facility: [facility] Address: [address] [place] [address] Performed By: #### 5 7021-8 ####[facility] MILLWNCLIA [id number] [address] [facility] LABCLIA [id number] [address] [address] [place] MYELO% 2.6 % Normal [facility] [place] Comment on above: Order Comment: Speci men Type: BLOOD SPECIMENOrdering Facility: [facility] Address: [address] [place] [address] Performed By: #### 5 7021-8 ####[facility] MILLTOWNCLIA [id number] [address] LABCLIA [id number] [place] [address] [place] Neutrophils (Bld) [#/Vol] 4.26 10*3/uL Normal 1.45-7.50 [facility] [place] Comment on above: Order Comment: Speci men Type: BLOOD SPECIMENOrdering Facility: [facility] Address: [address] [place] [address] Performed By: #### 5 7021-8 ####[facility] HOSPITALWNCLIA [id number] [address] LABCLIA [id number] [place] [address] [place] Neutrophils/100 WBC (Bld) 70.1 % Normal [facility] [place] Comment on above: Order Comment: Speci men Type: BLOOD SPECIMENOrdering Facility: [facility] Address: [address] [place] [address] Performed By: #### 5 7021-8 ####[facility] MILLTOWNCLIA [id number] [address] LABCLIA [id number] [place] [address] [place] Nucleated RBC (Bld) [#/Vol] 10*3/uL Normal <0.01 [facility] [place] Comment on above: Order Comment: Speci men Type: BLOOD SPECIMENOrdering Facility: [facility] Address: [address] [place] [address] Performed By: #### 5 7021-8 ####[facility] MILLTOWNCLIA [id number] [address] STATES [facility] LABCLIA [id number] [place] [address] [place] Nucleated RBC/100 WBC (Bld) [Ratio] 0.0 /100 WBC Normal [facility] [place] Comment on above: Order Comment: Speci men Type: BLOOD SPECIMENOrdering Facility: [facility] Address: [address] [place] [address] Performed By: #### 5 7021-8 ####[facility]ITALNCLIA [id number] [place] [address] [place] [facility] LABCLIA [id number] [place] [address] [place] Ovalocytes LM Ql (Bld) Few Normal [facility] [place] Comment on above: Order Comment: Speci men Type: BLOOD SPECIMENOrdering Facility: [facility] Address: [address] [place] [address] Performed By: #### 5 7021-8 ####[facility] HOSPITALWNCLIA [id number] [place] [address] [place] [facility] LABCLIA [id number] [place] [address] [place] Platelet mean volume (Bld) [Entitic vol] 8.0 fL Low 9.0-12.7 [facility] [place] Comment on above: Order Comment: Speci men Type: BLOOD SPECIMENOrdering Facility: [facility] Address: [address] [place] [address] Performed By: #### 5 7021-8 ####[facility] MILLTOWNCLIA [id number] [place] [address] [place] [facility] LABCLIA [id number] [place] [address] [place] Platelets (Bld) [#/Vol] 273 10*3/uL Normal 150-400 [facility] [place] Comment on above: Order Comment: Speci men Type: BLOOD SPECIMENOrdering Facility: [facility] Address: [address] [place] [address] Performed By: #### 5 7021-8 ####[facility] MILLTOWNCLIA [id number] [place] [address] [place] [facility] LABCLIA [id number] [place] [address] [place] Platelets Estimate (Bld) [#/Vol] Adequate Normal [facility] [place] Comment on above: Order Comment: Speci men Type: BLOOD SPECIMENOrdering Facility: [facility] Address: [address] [place] [address] Performed By: #### 5 7021-8 ####[facility]OSPITALWNCLIA [id number] [place] [address] [place] [facility] LABCLIA [id number] [place] [address] [place] Polychromasia LM Ql (Bld) Slight Normal [facility] [place] Comment on above: Order Comment: Speci men Type: BLOOD SPECIMENOrdering Facility: [facility] Address: [address] [place] [address] Performed By: #### 5 7021-8 ####[facility] MILLTOWNCLIA [id number] [place] [address] [place] [facility] LABCLIA [id number] [address] [address] [place] RBC (Bld) [#/Vol] 4.46 10*6/uL Normal 4.20-6.00 [facility] Comment on above: Order Comment: Speci men Type: BLOOD SPECIMENOrdering Facility: [facility] Address: [address] [place] [address] Performed By: #### 5 7021-8 ####[facility] HOSPITALWNCLIA [id number] [address] LABCLIA [id number] [place] [address] [place] RED CELL MORPH Reviewed: see result s of individual morphologies Normal [facility] Comment on above: Order Comment: Speci men Type: BLOOD SPECIMENOrdering Facility: [facility] Address: [address] [place] [address] Performed By: #### 5 7021-8 ####[facility] CLINICLIA [id number] [address] STATES [facility] LABCLIA [id number] [place] [address] [place] Variant lymphocytes/100 WBC (Bld) 0.9 % Normal [facility] [place] Comment on above: Order Comment: Speci men Type: BLOOD SPECIMENOrdering Facility: [facility] Address: [address] [place] [address] Performed By: #### 5 7021-8 ####[facility] CLINICLIA [id number] [address] STATES [facility] LABCLIA [id number] [place] [address] [place] WBC (Bld) [#/Vol] 6.08 10*3/uL Normal 3.70-11.00 [facility] Comment on above: Order Comment: Speci men Type: BLOOD SPECIMENOrdering Facility: [facility] Address: [address] [place] [address] Performed By: #### 5 7021-8 ####[facility] MILLWNCLIA [id number] [address] LABCLIA [id number] [place] [address] [place] WBC Left Shift Ql (Bld) Present Normal [facility] [place] Comment on above: Order Comment: Speci men Type: BLOOD SPECIMENOrdering Facility: [facility] Address: [address] [place] [address] Performed By: #### 5 7021-8 ####[facility]ENTERA [id number] [address] STATES [facility] LABIA [id number] [place] [address] [place] CBC W Auto Differential pane l (Bld)on 09-09-2024 Basophils (Bld) [#/Vol] 0.09 10*3/uL Normal <0.11 [facility] Comment on above: Order Comment: Speci men Type: BLOOD SPECIMENOrdering Facility: [facility] Address: [address] [place] [address] Performed By: #### 5 7021-8 ####[facility] ER [id number] [place] [address] [place] Basophils/100 WBC (Bld) 1.2 % Normal [facility] Comment on above: Order Comment: Speci men Type: BLOOD SPECIMENOrdering Facility: [facility] Address: [address] [place] [address] Performed By: #### 5 7021-8 ####[facility] ER [id number] [place] [address] [place] Differential cell count method Nom (Bld) Auto Normal [facility] Comment on above: Order Comment: Speci men Type: BLOOD SPECIMENOrdering Facility: [facility] Address: [address] [place] [address] Performed By: #### 5 7021-8 ####[facility] MILLWNCLIA [id number] [place] [address] [place] Eosinophils (Bld) [#/Vol] 0.11 10*3/uL Normal <0.46 [facility] Comment on above: Order Comment: Speci men Type: BLOOD SPECIMENOrdering Facility: [facility] Address: [address] [place] [address] Performed By: #### 5 7021-8 ####[facility] CL[facility]ICLIA [id number] [place] [address] [place] Eosinophils/100 WBC (Bld) 1.5 % Normal [facility] Comment on above: Order Comment: Speci men Type: BLOOD SPECIMENOrdering Facility: [facility] Address: [address] [place] [address] Performed By: #### 5 7021-8 ####[facility] CLINICLIA [id number] [place] [address] [place] Erythrocyte distribution width (RBC) [Ratio] 15.3 % High 11.5-15.0 [facility] Comment on above: Order Comment: Speci men Type: BLOOD SPECIMENOrdering Facility: [facility] Address: [address] [place] [address] Performed By: #### 5 7021-8 ####[facility]ITALWNCLIA [id number] [place] [address] [place] Hematocrit (Bld) [Volume fraction] 46.9 % Normal 39.0-51.0 [facility] Comment on above: Order Comment: Speci men Type: BLOOD SPECIMENOrdering Facility: [facility] Address: [address] [place] [address] Performed By: #### 5 7021-8 ####[facility]ICLIA [id number] [place] [address] [place] Hemoglobin (Bld) [Mass/Vol] 15.2 g/dL Normal 13.0-17.0 [facility] Comment on above: Order Comment: Speci men Type: BLOOD SPECIMENOrdering Facility: [facility] Address: [address] [place] [address] Performed By: #### 5 7021-8 ####[facility] ER [id number] [place] [address] [place] Immature granulocytes (Bld) [#/Vol] 0.07 10*3/uL Normal <0.10 [facility] Comment on above: Order Comment: Speci men Type: BLOOD SPECIMENOrdering Facility: [facility] Address: [address] [place] [address] Performed By: #### 5 7021-8 ####[facility] ER [id number] [place] [address] [place] Immature granulocytes/100 WBC (Bld) 0.9 % Normal [facility] Comment on above: Order Comment: Speci men Type: BLOOD SPECIMENOrdering Facility: [facility] Address: [address] [place] [address] Performed By: #### 5 7021-8 ####[facility] ER [id number] [place] [address] [place] Lymphocytes (Bld) [#/Vol] 1.30 10*3/uL Normal 1.00-4.00 [facility] Comment on above: Order Comment: Speci men Type: BLOOD SPECIMENOrdering Facility: [facility] Address: [address] [place] [address] Performed By: #### 5 7021-8 ####[facility] [id number] [place] [address] [place] Lymphocytes/100 WBC (Bld) 17.4 % Normal [facility] Comment on above: Order Comment: Speci men Type: BLOOD SPECIMENOrdering Facility: [facility] Address: [address] [place] [address] Performed By: #### 5 7021-8 ####[facility] KIESHAEtienneNCRAJEEV [id number] [address] [place] MCH (RBC) [Entitic mass] 27.9 pg Normal 26.0-34.0 [facility] Comment on above: Order Comment: Speci men Type: BLOOD SPECIMENOrdering Facility: [facility] Address: [address] [place] [address] Performed By: #### 5 7021-8 ####[facility]ITALNCM[facility] [id number] [address] [place] MCHC (RBC) [Mass/Vol] 32.4 g/dL Normal 30.5-36.0 [facility] Comment on above: Order Comment: Speci men Type: BLOOD SPECIMENOrdering Facility: [facility] Address: [address] [place] [address] Performed By: #### 5 7021-8 ####[facility]ITALNCLIA [id number] [address] [place] MCV (RBC) [Entitic vol] 86.1 fL Normal 80.0-100.0 [facility] Comment on above: Order Comment: Speci men Type: BLOOD SPECIMENOrdering Facility: [facility] Address: [address] [place] [address] Performed By: #### 5 7021-8 ####[facility]ITALNCLIA [id number] [place] [address] [place] Monocytes (Bld) [#/Vol] 0.70 10*3/uL Normal <0.87 [facility] Comment on above: Order Comment: Speci men Type: BLOOD SPECIMENOrdering Facility: [facility] Address: [address] [place] [address] Performed By: #### 5 7021-8 ####[facility] KIESHAWNCLIA [id number] [place] [address] [place] Monocytes/100 WBC (Bld) 9.4 % Normal [facility] Comment on above: Order Comment: Speci men Type: BLOOD SPECIMENOrdering Facility: [facility] Address: [address] [place] [address] Performed By: #### 5 7021-8 ####[facility] CL[facility]ICLIA [id number] [place] [address] [place] Neutrophils (Bld) [#/Vol] 5.18 10*3/uL Normal 1.45-7.50 [facility] Comment on above: Order Comment: Speci men Type: BLOOD SPECIMENOrdering Facility: [facility] Address: [address] [place] [address] Performed By: #### 5 7021-8 ####[facility]ICLIA [id number] [place] [address] [place] Neutrophils/100 WBC (Bld) 69.6 % Normal [facility] Comment on above: Order Comment: Speci men Type: BLOOD SPECIMENOrdering Facility: [facility] Address: [address] [place] [address] Performed By: #### 5 7021-8 ####[facility]ICLIA [id number] [place] [address] [place] Nucleated RBC (Bld) [#/Vol] 10*3/uL Normal <0.01 [facility] Comment on above: Order Comment: Speci men Type: BLOOD SPECIMENOrdering Facility: [facility] Address: [address] [place] [address] Performed By: #### 5 7021-8 ####[facility]ICLIA [id number] [place] [address] [place] Nucleated RBC/100 WBC (Bld) [Ratio] 0.0 /100 WBC Normal [facility] Comment on above: Order Comment: Speci men Type: BLOOD SPECIMENOrdering Facility: [facility] Address: [address] [place] [address] Performed By: #### 5 7021-8 ####[facility] HOSPITALDENITARAJEEV [id number] [place] [address] [place] Platelet mean volume (Bld) [Entitic vol] 8.4 fL Low 9.0-12.7 [facility] Comment on above: Order Comment: Speci men Type: BLOOD SPECIMENOrdering Facility: [facility] Address: [address] [place] [address] Performed By: #### 5 7021-8 ####[facility] HOSPITALDENITAMaricruz [id number] [place] [address] [place] Platelets (Bld) [#/Vol] 267 10*3/uL Normal 150-400 [facility] Comment on above: Order Comment: Speci men Type: BLOOD SPECIMENOrdering Facility: [facility] Address: [address] [place] [address] Performed By: #### 5 7021-8 ####[facility] HOSPITALDENITARAJEEV [id number] [place] [address] [place] RBC (Bld) [#/Vol] 5.45 10*6/uL Normal 4.20-6.00 [facility] Comment on above: Order Comment: Speci men Type: BLOOD SPECIMENOrdering Facility: [facility] Address: [address] [place] [address] Performed By: #### 5 7021-8 ####[facility]ITALNCLIA [id number] [place] [address] [place] WBC (Bld) [#/Vol] 7.45 10*3/uL Normal 3.70-11.00 [facility] Comment on above: Order Comment: Speci men Type: BLOOD SPECIMENOrdering Facility: [facility] Address: [address] [place] [address] Performed By: #### 5 7021-8 ####[facility]ITALNCLIA [id number] [place] [address] [place] CNOVSPon 09-09-2024 CNOVSP Normal [facility] CNPNon 09-09-2024 CNPN Normal [facility] Comprehensive metabolic 2000 panelon 09-09-2024 Albumin [Mass/Vol] 4.8 g/dL Normal 3.9-4.9 [facility] Comment on above: Order Comment: Speci men Type: BLOOD SPECIMENOrdering Facility: [facility] Address: [address] [place] [address] Performed By: #### 2 4323-8 ####[facility]ITALNCLIA [id number] [place] [address] [place] ALP [Catalytic activity/Vol] 119 U/L High 38-113 [facility] Comment on above: Order Comment: Speci men Type: BLOOD SPECIMENOrdering Facility: [facility] Address: [address] [place] [address] Performed By: #### 2 4323-8 ####[facility]A [id number] [place] [address] [place] ALT [Catalytic activity/Vol] 28 U/L Normal 10-54 [facility] Comment on above: Order Comment: Speci men Type: BLOOD SPECIMENOrdering Facility: [facility] Address: [address] [place] [address] Performed By: #### 2 4323-8 ####[facility]ITALWNCLIA [id number] [place] [address] [place] Anion gap [Moles/Vol] 15 mmol/L Normal 8-15 [facility] Comment on above: Order Comment: Speci men Type: BLOOD SPECIMENOrdering Facility: [facility] Address: [address] [place] [address] Performed By: #### 2 4323-8 ####[facility] KIESHAWHITE HEATHNCLIA [id number] [place] [address] [place] AST [Catalytic activity/Vol] 20 U/L Normal 14-40 [facility] Comment on above: Order Comment: Speci men Type: BLOOD SPECIMENOrdering Facility: [facility] Address: [address] [place] [address] Performed By: #### 2 4323-8 ####[facility] CENTERMaricruz [id number] [place] [address] [place] Bilirubin [Mass/Vol] 0.7 mg/dL Normal 0.2-1.3 [facility] Comment on above: Order Comment: Speci men Type: BLOOD SPECIMENOrdering Facility: [facility] Address: [address] [place] [address] Performed By: #### 2 4323-8 ####[facility] CENTERA [id number] [place] [address] [place] Calcium [Mass/Vol] 10.0 mg/dL Normal 8.5-10.2 [facility] Comment on above: Order Comment: Speci men Type: BLOOD SPECIMENOrdering Facility: [facility] Address: [address] [place] [address] Performed By: #### 2 4323-8 ####[facility] CLINICLIA [id number] [place] [address] [place] Chloride [Moles/Vol] 101 mmol/L Normal 98-107 [facility] Comment on above: Order Comment: Speci men Type: BLOOD SPECIMENOrdering Facility: [facility] Address: [address] [place] [address] Performed By: #### 2 4323-8 ####[facility] CLINICLIA [id number] [place] [address] [place] CO2 [Moles/Vol] 24 mmol/L Normal 22-30 [facility] Comment on above: Order Comment: Speci men Type: BLOOD SPECIMENOrdering Facility: [facility] Address: [address] [place] [address] Performed By: #### 2 4323-8 ####[facility] CLINICLIA [id number] [place] [address] [place] Creatinine [Mass/Vol] 0.92 mg/dL Normal 0.73-1.22 [facility] Comment on above: Order Comment: Speci men Type: BLOOD SPECIMENOrdering Facility: [facility] Address: [address] [place] [address] Performed By: #### 2 4323-8 ####[facility] ER [id number] [place] [address] [place] Creatinine and Glomerular filtration rate.predicted panel (S/P/Bld) 93 mL/min/1.73m??? Normal >=60 [facility] Comment on above: Order Comment: Speci men Type: BLOOD SPECIMENOrdering Facility: [facility] Address: [address] [place] [address] Result Comment: Kisha mated Glomerular Filtration Rate [...] actual GFR. Performed By: #### 2 4323-8 ####[facility]OSPITALNCLIA [id number] [place] [address] [place] Glucose [Mass/Vol] 179 mg/dL High 74-99 [facility] Comment on above: Order Comment: Speci men Type: BLOOD SPECIMENOrdering Facility: [facility] Address: [address] [place] [address] Result Comment: The [place] Diabetes Association (ADA) provides guidance for cutoff [...] Standards of Medical Care in Diabetes 2016, [place] [employer]. Diabetes Care. 2016.39(Suppl 1). Performed By: #### 2 4323-8 ####[facility] ER [id number] [place] [address] [place] Potassium [Moles/Vol] 3.7 mmol/L Normal 3.7-5.1 [facility] Comment on above: Order Comment: Fatoui men Type: BLOOD SPECIMENOrdering Facility: [facility] Address: [address] [place] [address] Performed By: #### 2 4323-8 ####[facility] CENTERMaricruz [id number] [place] [address] [place] Protein [Mass/Vol] 7.4 g/dL Normal 6.3-8.0 [facility] Comment on above: Order Comment: Speci men Type: BLOOD SPECIMENOrdering Facility: [facility] Address: [address] [place] [address] Performed By: #### 2 4323-8 ####[facility] CLINICLIA [id number] [place] [address] [place] Sodium [Moles/Vol] 140 mmol/L Normal 136-144 [facility] Comment on above: Order Comment: Speci men Type: BLOOD SPECIMENOrdering Facility: [facility] Address: [address] [place] [address] Performed By: #### 2 4323-8 ####[facility] CLINICLIA [id number] [place] [address] [place] Urea nitrogen [Mass/Vol] 20 mg/dL Normal 9-24 [facility] Comment on above: Order Comment: Speci men Type: BLOOD SPECIMENOrdering Facility: [facility] Address: [address] [place] [address] Performed By: #### 2 4323-8 ####[facility] HOSPITALDENITAA [id number] [place] [address] [place] CBC W Auto Differential pane l (Bld)on 08-26-2024 Basophils (Bld) [#/Vol] 0.06 10*3/uL Normal <0.11 [facility] Comment on above: Order Comment: Speci men Type: BLOOD SPECIMENOrdering Facility: [facility] Address: [address] [place] [address] Performed By: #### 5 7021-8 ####[facility] CENTERA [id number] [place] [address] [place] Basophils/100 WBC (Bld) 1.2 % Normal [facility] Comment on above: Order Comment: Speci men Type: BLOOD SPECIMENOrdering Facility: [facility] Address: [address] [place] [address] Performed By: #### 5 7021-8 ####[facility] CENTERA [id number] [place] [address] [place] Differential cell count method Nom (Bld) Auto Normal [facility] Comment on above: Order Comment: Speci men Type: BLOOD SPECIMENOrdering Facility: [facility] Address: [address] [place], [place] [address] Performed By: #### 5 7021-8 ####[facility] HOSPITALWNCLIA [id number] [place] [address] [place] Eosinophils (Bld) [#/Vol] 10*3/uL Normal <0.46 [facility] Comment on above: Order Comment: Speci men Type: BLOOD SPECIMENOrdering Facility: [facility] Address: [address] [place] [address] Performed By: #### 5 7021-8 ####[facility] CLINICLIA [id number] [place] [address] [place] Eosinophils/100 WBC (Bld) 0.2 % Normal [facility] Comment on above: Order Comment: Speci men Type: BLOOD SPECIMENOrdering Facility: [facility] Address: [address] [place] [address] Performed By: #### 5 7021-8 ####[facility] CENTERA [id number] [place] [address] [place] Erythrocyte distribution width (RBC) [Ratio] 14.3 % Normal 11.5-15.0 [facility] Comment on above: Order Comment: Speci men Type: BLOOD SPECIMENOrdering Facility: [facility] Address: [address] [place] [address] Performed By: #### 5 7021-8 ####[facility] CLINICLIA [id number] [address] [place] Hematocrit (Bld) [Volume fraction] 36.5 % Low 39.0-51.0 [facility] Comment on above: Order Comment: Speci men Type: BLOOD SPECIMENOrdering Facility: [facility] Address: [address] [place] [address] Performed By: #### 5 7021-8 ####[facility] ER [id number] [place] [address] [place] Hemoglobin (Bld) [Mass/Vol] 12.1 g/dL Low 13.0-17.0 [facility] Comment on above: Order Comment: Speci men Type: BLOOD SPECIMENOrdering Facility: [facility] Address: [address] [place] [address] Performed By: #### 5 7021-8 ####[facility] ER [id number] [place] [address] [place] Immature granulocytes (Bld) [#/Vol] 0.16 10*3/uL High <0.10 [facility] Comment on above: Order Comment: Speci men Type: BLOOD SPECIMENOrdering Facility: [facility] Address: [address] [place] [address] Performed By: #### 5 7021-8 ####[facility] ER [id number] [place] [address] [place] Immature granulocytes/100 WBC (Bld) 3.2 % Normal [facility] Comment on above: Order Comment: Speci men Type: BLOOD SPECIMENOrdering Facility: [facility] Address: [address] [place] [address] Performed By: #### 5 7021-8 ####[facility] ER [id number] [place] [address] [place] Lymphocytes (Bld) [#/Vol] 0.71 10*3/uL Low 1.00-4.00 [facility] Comment on above: Order Comment: Speci men Type: BLOOD SPECIMENOrdering Facility: [facility] Address: [address] [place] [address] Performed By: #### 5 7021-8 ####[facility] HOSPITALNCA [id number] [place] [address] [place] Lymphocytes/100 WBC (Bld) 14.3 % Normal [facility] Comment on above: Order Comment: Speci men Type: BLOOD SPECIMENOrdering Facility: [facility] Address: [address] [place], [place] [address] Performed By: #### 5 7021-8 ####[facility] KIESHAEtienneNCRAJEEV [id number] [place] [address] [place] MCH (RBC) [Entitic mass] 28.5 pg Normal 26.0-34.0 [facility] Comment on above: Order Comment: Speci men Type: BLOOD SPECIMENOrdering Facility: [facility] Address: [address] [place] [address] Performed By: #### 5 7021-8 ####[facility] HOSPITALNCRAJEEV [id number] [place] [address] [place] MCHC (RBC) [Mass/Vol] 33.2 g/dL Normal 30.5-36.0 [facility] Comment on above: Order Comment: Speci men Type: BLOOD SPECIMENOrdering Facility: [facility] Address: [address] [place], [place] [address] Performed By: #### 5 7021-8 ####[facility] HOSPITALNCA [id number] [address] [place] MCV (RBC) [Entitic vol] 86.1 fL Normal 80.0-100.0 [facility] Comment on above: Order Comment: Speci men Type: BLOOD SPECIMENOrdering Facility: [facility] Address: [address] [place], [place] [address] Performed By: #### 5 7021-8 ####[facility] HOSPITALNCA [id number] [place] [address] [place] Monocytes (Bld) [#/Vol] 0.34 10*3/uL Normal <0.87 [facility] Comment on above: Order Comment: Speci men Type: BLOOD SPECIMENOrdering Facility: [facility] Address: [address] [place], [place] [address] Performed By: #### 5 7021-8 ####[facility] MILLWNCLIA [id number] [place] [address] [place] Monocytes/100 WBC (Bld) 6.8 % Normal [facility] Comment on above: Order Comment: Speci men Type: BLOOD SPECIMENOrdering Facility: [facility] Address: [address] [place] [address] Performed By: #### 5 7021-8 ####[facility] HOSPITALNCLIA [id number] [place] [address] [place] Neutrophils (Bld) [#/Vol] 3.70 10*3/uL Normal 1.45-7.50 [facility] Comment on above: Order Comment: Speci men Type: BLOOD SPECIMENOrdering Facility: [facility] Address: [address] [place] [address] Performed By: #### 5 7021-8 ####[facility] CLINICLIA [id number] [place] [address] [place] Neutrophils/100 WBC (Bld) 74.3 % Normal [facility] Comment on above: Order Comment: Speci men Type: BLOOD SPECIMENOrdering Facility: [facility] Address: [address] [place] [address] Performed By: #### 5 7021-8 ####[facility] HOSPITALNCLIA [id number] [place] [address] [place] Nucleated RBC (Bld) [#/Vol] 10*3/uL Normal <0.01 [facility] Comment on above: Order Comment: Speci men Type: BLOOD SPECIMENOrdering Facility: [facility] Address: [address] [place] [address] Performed By: #### 5 7021-8 ####[facility] HOSPITALNCLIA [id number] [place] [id number] [place] Nucleated RBC/100 WBC (Bld) [Ratio] 0.0 /100 WBC Normal [facility] Comment on above: Order Comment: Speci men Type: BLOOD SPECIMENOrdering Facility: [facility] Address: [address] [place] [address] Performed By: #### 5 7021-8 ####[facility] HOSPITALNCYOHANAA [id number] [place] [address] [place] Platelet mean volume (Bld) [Entitic vol] 8.3 fL Low 9.0-12.7 [facility] Comment on above: Order Comment: Speci men Type: BLOOD SPECIMENOrdering Facility: [facility] Address: [address] [place] [address] Performed By: #### 5 7021-8 ####[facility] HOSPITALNCA [id number] [place] [address] [place] Platelets (Bld) [#/Vol] 252 10*3/uL Normal 150-400 [facility] Comment on above: Order Comment: Speci men Type: BLOOD SPECIMENOrdering Facility: [facility] Address: [address] [place] [address] Performed By: #### 5 7021-8 ####[facility] HOSPITALNCLIA [id number] [place] [address] [place] RBC (Bld) [#/Vol] 4.24 10*6/uL Normal 4.20-6.00 [facility] Comment on above: Order Comment: Speci men Type: BLOOD SPECIMENOrdering Facility: [facility] Address: [address] [place] [address] Performed By: #### 5 7021-8 ####[facility] HOSPITALNCLIA [id number] [place] [address] [place] WBC (Bld) [#/Vol] 4.98 10*3/uL Normal 3.70-11.00 [facility] Comment on above: Order Comment: Speci men Type: BLOOD SPECIMENOrdering Facility: [facility] Address: [address] [place] [address] Performed By: #### 5 7021-8 ####[facility]PITALNCMO[facility] [id number] [place] [address] [place] Comprehensive metabolic 2000 panelon 08-26-2024 Albumin [Mass/Vol] 4.5 g/dL Normal 3.9-4.9 [facility] Comment on above: Order Comment: Speci men Type: BLOOD SPECIMENOrdering Facility: [facility] Address: [address] [place] [address] Performed By: #### 2 4323-8 ####[facility]OSPITALNCMO[facility] [id number] [place] [address] [place] ALP [Catalytic activity/Vol] 102 U/L Normal 38-113 [facility] Comment on above: Order Comment: Speci men Type: BLOOD SPECIMENOrdering Facility: [facility] Address: [address] [place] [address] Performed By: #### 2 4323-8 ####[facility]OSPITALNCMO[facility] [id number] [place] [address] [place] ALT [Catalytic activity/Vol] 23 U/L Normal 10-54 [facility] Comment on above: Order Comment: Speci men Type: BLOOD SPECIMENOrdering Facility: [facility] Address: [address] [place] [address] Performed By: #### 2 4323-8 ####[facility] ER [id number] [place] [address] [place] Anion gap [Moles/Vol] 5 mmol/L Low 8-15 [facility] Comment on above: Order Comment: Speci men Type: BLOOD SPECIMENOrdering Facility: [facility] Address: [address] [place] [address] Performed By: #### 2 4323-8 ####[facility] MILLTOWNCLIA [id number] [place] [address] [place] AST [Catalytic activity/Vol] 20 U/L Normal 14-40 [facility] Comment on above: Order Comment: Speci men Type: BLOOD SPECIMENOrdering Facility: [facility] Address: [address] [place] [address] Performed By: #### 2 4323-8 ####[facility] HOSPITALNCLIA [id number] [place] [address] [place] Bilirubin [Mass/Vol] 0.2 mg/dL Normal 0.2-1.3 [facility] Comment on above: Order Comment: Speci men Type: BLOOD SPECIMENOrdering Facility: [facility] Address: [address] [place] [address] Performed By: #### 2 4323-8 ####[facility] CLINICLIA [id number] [place] [address] [place] Calcium [Mass/Vol] 9.9 mg/dL Normal 8.5-10.2 [facility] Comment on above: Order Comment: Speci men Type: BLOOD SPECIMENOrdering Facility: [facility] Address: [address] [place] [address] Performed By: #### 2 4323-8 ####[facility] MILLWNCLIA [id number] [place] [address] [place] Chloride [Moles/Vol] 105 mmol/L Normal 98-107 [facility] Comment on above: Order Comment: Speci men Type: BLOOD SPECIMENOrdering Facility: [facility] Address: [address] [place] [address] Performed By: #### 2 4323-8 ####[facility] MILLWNCLIA [id number] [place] [address] [place] CO2 [Moles/Vol] 28 mmol/L Normal 22-30 [facility] Comment on above: Order Comment: Speci men Type: BLOOD SPECIMENOrdering Facility: [facility] Address: [address] [place] [address] Performed By: #### 2 4323-8 ####[facility] ER [id number] [place] [address] [place] Creatinine [Mass/Vol] 0.77 mg/dL Normal 0.73-1.22 [facility] Comment on above: Order Comment: Speci men Type: BLOOD SPECIMENOrdering Facility: [facility] Address: [address] [place] [address] Performed By: #### 2 4323-8 ####[facility] HOSPITALNCMOAB [facility] [id number] [place] [address] [place] Creatinine and Glomerular filtration rate.predicted panel (S/P/Bld) 100 mL/min/1.73m??? Normal >=60 [facility] Comment on above: Order Comment: Fatoui men Type: BLOOD SPECIMENOrdering Facility: [facility] Address: [address] [place] [address] Result Comment: Kisha mated Glomerular Filtration Rate [...] actual GFR. Performed By: #### 2 4323-8 ####[facility] HOSPITALNCLIA [id number] [place] [address] [place] Glucose [Mass/Vol] 138 mg/dL High 74-99 [facility] Comment on above: Order Comment: Speci men Type: BLOOD SPECIMENOrdering Facility: [facility] Address: [address] [place] [id number] Result Comment: The [place] Diabetes Association (ADA) provides guidance for cutoff [...] Standards of Medical Care in Diabetes 2016, [place] [employer]. Diabetes Care. 2016.39(Suppl 1). Performed By: #### 2 4323-8 ####[facility] ER [id number] [place] [address] [place] Potassium [Moles/Vol] 4.3 mmol/L Normal 3.7-5.1 [facility] Comment on above: Order Comment: Speci men Type: BLOOD SPECIMENOrdering Facility: [facility] Address: [address] [address] Performed By: #### 2 4323-8 ####[facility] ER [id number] [place] [address] [place] Protein [Mass/Vol] 6.6 g/dL Normal 6.3-8.0 [facility] Comment on above: Order Comment: Speci men Type: BLOOD SPECIMENOrdering Facility: [facility] Address: [address] [id number] Performed By: #### 2 4323-8 ####[facility] ER [id number] [place] [address] [place] Sodium [Moles/Vol] 138 mmol/L Normal 136-144 [facility] Comment on above: Order Comment: Speci men Type: BLOOD SPECIMENOrdering Facility: [facility] Address: [address] [place] [address] Performed By: #### 2 4323-8 ####[facility] MILLTOWNCLIA [id number] [place] [address] [place] Urea nitrogen [Mass/Vol] 12 mg/dL Normal 9-24 [facility] Comment on above: Order Comment: Speci men Type: BLOOD SPECIMENOrdering Facility: [facility] Address: [address] [place] [address] Performed By: #### 2 4323-8 ####[facility] MILLTOWNCLIA [id number] [place] [address] [place] CBC W Auto Differential pane l (Bld)on 08-19-2024 Basophils (Bld) [#/Vol] 0.07 10*3/uL Normal <0.11 [facility] Comment on above: Order Comment: Speci men Type: BLOOD SPECIMENOrdering Facility: [facility] Address: [address] [place] [address] Performed By: #### 5 7021-8 ####[facility] MILLWNCLIA [id number] [place] [address] [place] Basophils/100 WBC (Bld) 1.0 % Normal [facility] Comment on above: Order Comment: Speci men Type: BLOOD SPECIMENOrdering Facility: [facility] Address: [address] [place] [address] Performed By: #### 5 7021-8 ####[facility] MILLTOWNCLIA [id number] [place] [address] [place] Differential cell count method Nom (Bld) Auto Normal [facility] Comment on above: Order Comment: Speci men Type: BLOOD SPECIMENOrdering Facility: [facility] Address: [address] [place] [address] Performed By: #### 5 7021-8 ####[facility] MILLTOWNCLIA [id number] [place] [address] [place] Eosinophils (Bld) [#/Vol] 0.12 10*3/uL Normal <0.46 [facility] Comment on above: Order Comment: Speci men Type: BLOOD SPECIMENOrdering Facility: [facility] Address: [address] [place] [address] Performed By: #### 5 7021-8 ####[facility] CENTERA [id number] [place] [address] [place] Eosinophils/100 WBC (Bld) 1.8 % Normal [facility] Comment on above: Order Comment: Speci men Type: BLOOD SPECIMENOrdering Facility: [facility] Address: [address] [place] [address] Performed By: #### 5 7021-8 ####[facility] ER [id number] [place] [address] [place] Erythrocyte distribution width (RBC) [Ratio] 14.1 % Normal 11.5-15.0 [facility] Comment on above: Order Comment: Speci men Type: BLOOD SPECIMENOrdering Facility: [facility] Address: [address] [place] [address] Performed By: #### 5 7021-8 ####[facility] ER [id number] [place] [address] [place] Hematocrit (Bld) [Volume fraction] 39.9 % Normal 39.0-51.0 [facility] Comment on above: Order Comment: Speci men Type: BLOOD SPECIMENOrdering Facility: [facility] Address: [address] [place] [address] Performed By: #### 5 7021-8 ####[facility]OSPITALNCLI [id number] [place] [address] [place] Hemoglobin (Bld) [Mass/Vol] 12.6 g/dL Low 13.0-17.0 [facility] Comment on above: Order Comment: Speci men Type: BLOOD SPECIMENOrdering Facility: [facility] Address: [address] [place] [address] Performed By: #### 5 7021-8 ####[facility]ITALNCM[facility] [id number] [place] [address] [place] Immature granulocytes (Bld) [#/Vol] 0.19 10*3/uL High <0.10 [facility] Comment on above: Order Comment: Speci men Type: BLOOD SPECIMENOrdering Facility: [facility] Address: [address] [place] [address] Performed By: #### 5 7021-8 ####[facility] ER [id number] [place] [address] [place] Immature granulocytes/100 WBC (Bld) 2.8 % Normal [facility] Comment on above: Order Comment: Speci men Type: BLOOD SPECIMENOrdering Facility: [facility] Address: [address] [place] [address] Performed By: #### 5 7021-8 ####[facility] [id number] [place] [address] [place] Lymphocytes (Bld) [#/Vol] 0.97 10*3/uL Low 1.00-4.00 [facility] [place] Comment on above: Order Comment: Speci men Type: BLOOD SPECIMENOrdering Facility: [facility] Address: [address] [place] [address] Performed By: #### 5 7021-8 ####[facility] [id number] [place] [address] [place] Lymphocytes/100 WBC (Bld) 14.4 % Normal [facility] [place] Comment on above: Order Comment: Speci men Type: BLOOD SPECIMENOrdering Facility: [facility] Address: [address] [place] [address] Performed By: #### 5 7021-8 ####[facility]ITALNCLIA [id number] [address] [place] [facility] MCH (RBC) [Entitic mass] 27.9 pg Normal 26.0-34.0 [facility] [place] Comment on above: Order Comment: Speci men Type: BLOOD SPECIMENOrdering Facility: [facility] Address: [address] [place] [address] Performed By: #### 5 7021-8 ####[facility] [id number] [place] [address] [place] MCHC (RBC) [Mass/Vol] 31.6 g/dL Normal 30.5-36.0 [facility] [place] Comment on above: Order Comment: Speci men Type: BLOOD SPECIMENOrdering Facility: [facility] Address: [address] [place] [address] Performed By: #### 5 7021-8 ####[facility] [id number] [place] [address] [place] MCV (RBC) [Entitic vol] 88.5 fL Normal 80.0-100.0 [facility] [place] Comment on above: Order Comment: Speci men Type: BLOOD SPECIMENOrdering Facility: [facility] Address: [address] [place] [address] Performed By: #### 5 7021-8 ####[facility] [id number] [place] [address] [place] Monocytes (Bld) [#/Vol] 0.41 10*3/uL Normal <0.87 [facility] [place] Comment on above: Order Comment: Speci men Type: BLOOD SPECIMENOrdering Facility: [facility] Address: [address] [place] [address] Performed By: #### 5 7021-8 ####[facility] [id number] [place] [address] [place] Monocytes/100 WBC (Bld) 6.1 % Normal [facility] [place] Comment on above: Order Comment: Speci men Type: BLOOD SPECIMENOrdering Facility: [facility] Address: [address] [place] [address] Performed By: #### 5 7021-8 ####[facility] [id number] [place] [address] [place] Neutrophils (Bld) [#/Vol] 4.98 10*3/uL Normal 1.45-7.50 [facility] [place] Comment on above: Order Comment: Speci men Type: BLOOD SPECIMENOrdering Facility: [facility] Address: [address] [place] [address] Performed By: #### 5 7021-8 ####[facility]ITALNCMO[facility] [id number] [place] [address] [place] Neutrophils/100 WBC (Bld) 73.9 % Normal [facility] [place] Comment on above: Order Comment: Speci men Type: BLOOD SPECIMENOrdering Facility: [facility] Address: [address] [place] [address] Performed By: #### 5 7021-8 ####[facility] HOSPITALNCLI [id number] [place] [address] [place] Nucleated RBC (Bld) [#/Vol] 10*3/uL Normal <0.01 [facility] [place] Comment on above: Order Comment: Speci men Type: BLOOD SPECIMENOrdering Facility: [facility] Address: [address] [place] [address] Performed By: #### 5 7021-8 ####[facility]PITALNCLIA [id number] [place] [address] [place] Nucleated RBC/100 WBC (Bld) [Ratio] 0.0 /100 WBC Normal [facility] [place] Comment on above: Order Comment: Speci men Type: BLOOD SPECIMENOrdering Facility: [facility] Address: [address] [place] [address] Performed By: #### 5 7021-8 ####[facility] KIESHAEtienneNCRAJEEV [id number] [place] [address] [place] Platelet mean volume (Bld) [Entitic vol] 8.4 fL Low 9.0-12.7 [facility] [place] Comment on above: Order Comment: Speci men Type: BLOOD SPECIMENOrdering Facility: [facility] Address: [address] [place] [address] Performed By: #### 5 7021-8 ####[facility] HOSPITALNCYOHANAA [id number] [place] [address] [place] Platelets (Bld) [#/Vol] 237 10*3/uL Normal 150-400 [facility] [place] Comment on above: Order Comment: Speci men Type: BLOOD SPECIMENOrdering Facility: [facility] Address: [address] [place] [address] Performed By: #### 5 7021-8 ####[facility]PITALNCLIA [id number] [place] [address] [place] RBC (Bld) [#/Vol] 4.51 10*6/uL Normal 4.20-6.00 [facility] Comment on above: Order Comment: Speci men Type: BLOOD SPECIMENOrdering Facility: [facility] Address: [address] [place] [address] Performed By: #### 5 7021-8 ####[facility]PITALNCLIA [id number] [place] [address] [place] WBC (Bld) [#/Vol] 6.74 10*3/uL Normal 3.70-11.00 [facility] Comment on above: Order Comment: Speci men Type: BLOOD SPECIMENOrdering Facility: [facility] Address: [address] [place] [address] Performed By: #### 5 7021-8 ####[facility]ENTERA [id number] [place] [address] [place] CNPNon 08-13-2024 CNPN Normal [facility] CBC W Auto Differential pane l (Bld)on 08-12-2024 Basophils (Bld) [#/Vol] 0.07 10*3/uL Normal <0.11 [facility] [place] Comment on above: Order Comment: Speci men Type: BLOOD SPECIMENOrdering Facility: [facility] Address: [address] [place] [address] Performed By: #### 5 7021-8 ####[facility] HOSPITALDENITAMOAB REGIONAL [facility] [id number] [place] [address] [place] Basophils/100 WBC (Bld) 0.8 % Normal [facility] [place] Comment on above: Order Comment: Speci men Type: BLOOD SPECIMENOrdering Facility: [facility] Address: [address] [place] [address] Performed By: #### 5 7021-8 ####[facility] HOSPITALDENITAA [id number] [place] [address] [place] Differential cell count method Nom (Bld) Auto Normal [facility] [place] Comment on above: Order Comment: Speci men Type: BLOOD SPECIMENOrdering Facility: [facility] Address: [address] [place] [address] Performed By: #### 5 7021-8 ####[facility] CLINICLIA [id number] [place] [address] [place] Eosinophils (Bld) [#/Vol] 10*3/uL Normal <0.46 [facility] [place] Comment on above: Order Comment: Speci men Type: BLOOD SPECIMENOrdering Facility: [facility] Address: [address] [place] [address] Performed By: #### 5 7021-8 ####[facility] MILLWNCLIA [id number] [place] [address] [place] Eosinophils/100 WBC (Bld) 0.2 % Normal [facility] [place] Comment on above: Order Comment: Speci men Type: BLOOD SPECIMENOrdering Facility: [facility] Address: [address] [place] [address] Performed By: #### 5 7021-8 ####[facility] HOSPITALDENITALIA [id number] [place] [address] [place] Erythrocyte distribution width (RBC) [Ratio] 14.1 % Normal 11.5-15.0 [facility] [place] Comment on above: Order Comment: Speci men Type: BLOOD SPECIMENOrdering Facility: [facility] Address: [address] [place] [address] Performed By: #### 5 7021-8 ####[facility] CLINICYOHANAA [id number] [place] [address] [place] Hematocrit (Bld) [Volume fraction] 41.7 % Normal 39.0-51.0 [facility] [place] Comment on above: Order Comment: Speci men Type: BLOOD SPECIMENOrdering Facility: [facility] Address: [address] [place] [address] Performed By: #### 5 7021-8 ####[facility] HOSPITALDENITALIA [id number] [place] [address] [place] Hemoglobin (Bld) [Mass/Vol] 13.3 g/dL Normal 13.0-17.0 [facility] [place] Comment on above: Order Comment: Speci men Type: BLOOD SPECIMENOrdering Facility: [facility] Address: [address] [place] [address] Performed By: #### 5 7021-8 ####[facility] HOSPITALNCLIA [id number] [place] [address] [place] Immature granulocytes (Bld) [#/Vol] 0.07 10*3/uL Normal <0.10 [facility] [place] Comment on above: Order Comment: Speci men Type: BLOOD SPECIMENOrdering Facility: [facility] Address: [address] [place] [address] Performed By: #### 5 7021-8 ####[facility] ER [id number] [place] [address] [place] Immature granulocytes/100 WBC (Bld) 0.8 % Normal [facility] [place] Comment on above: Order Comment: Speci men Type: BLOOD SPECIMENOrdering Facility: [facility] Address: [address] [place] [address] Performed By: #### 5 7021-8 ####[facility] HOSPITALNCMOAB REGIONAL [facility] [id number] [place] [address] [place] Lymphocytes (Bld) [#/Vol] 0.76 10*3/uL Low 1.00-4.00 [facility] [place] Comment on above: Order Comment: Speci men Type: BLOOD SPECIMENOrdering Facility: [facility] Address: [address] [place] [address] Performed By: #### 5 7021-8 ####[facility] ER [id number] [place] [address] [place] Lymphocytes/100 WBC (Bld) 9.1 % Normal [facility] [place] Comment on above: Order Comment: Speci men Type: BLOOD SPECIMENOrdering Facility: [facility] Address: [address] [place] [address] Performed By: #### 5 7021-8 ####[facility] HOSPITALNCA [id number] [place] [address] [place] MCH (RBC) [Entitic mass] 28.1 pg Normal 26.0-34.0 [facility] [place] Comment on above: Order Comment: Speci men Type: BLOOD SPECIMENOrdering Facility: [facility] Address: [address] [place] [address] Performed By: #### 5 7021-8 ####[facility] MIGUEL [id number] [place] [address] [place] MCHC (RBC) [Mass/Vol] 31.9 g/dL Normal 30.5-36.0 [facility] [place] Comment on above: Order Comment: Speci men Type: BLOOD SPECIMENOrdering Facility: [facility] Address: [address] [place] [address] Performed By: #### 5 7021-8 ####[facility] HOSPITALLEIGHTON [id number] [place] [address] [place] MCV (RBC) [Entitic vol] 88.0 fL Normal 80.0-100.0 [facility] [place] Comment on above: Order Comment: Speci men Type: BLOOD SPECIMENOrdering Facility: [facility] Address: [address] [place] [address] Performed By: #### 5 7021-8 ####[facility] HOSPITALJUANA [id number] [place] [address] [place] Monocytes (Bld) [#/Vol] 0.38 10*3/uL Normal <0.87 [facility] [place] Comment on above: Order Comment: Speci men Type: BLOOD SPECIMENOrdering Facility: [facility] Address: [address] [place] [address] Performed By: #### 5 7021-8 ####[facility] HOSPITALNCLIA [id number] [place] [address] [place] Monocytes/100 WBC (Bld) 4.6 % Normal [facility] [place] Comment on above: Order Comment: Speci men Type: BLOOD SPECIMENOrdering Facility: [facility] Address: [address] [place] [address] Performed By: #### 5 7021-8 ####[facility] MILLWNCLIA [id number] [place] [address] [place] Neutrophils (Bld) [#/Vol] 7.05 10*3/uL Normal 1.45-7.50 [facility] [place] Comment on above: Order Comment: Speci men Type: BLOOD SPECIMENOrdering Facility: [facility] Address: [address] [place] [address] Performed By: #### 5 7021-8 ####[facility] CLINICLIA [id number] [place] [address] [place] Neutrophils/100 WBC (Bld) 84.5 % Normal [facility] [place] Comment on above: Order Comment: Speci men Type: BLOOD SPECIMENOrdering Facility: [facility] Address: [address] [place] [address] Performed By: #### 5 7021-8 ####[facility] CLINICLIA [id number] [place] [address] [place] Nucleated RBC (Bld) [#/Vol] 10*3/uL Normal <0.01 [facility] [place] Comment on above: Order Comment: Speci men Type: BLOOD SPECIMENOrdering Facility: [facility] Address: [address] [place] [address] Performed By: #### 5 7021-8 ####[facility] CLINICLIA [id number] [place] [address] [place] Nucleated RBC/100 WBC (Bld) [Ratio] 0.0 /100 WBC Normal [facility] [place] Comment on above: Order Comment: Speci men Type: BLOOD SPECIMENOrdering Facility: [facility] Address: [address] [place] [address] Performed By: #### 5 7021-8 ####[facility] HOSPITALNCLIA [id number] [place] [address] [place] Platelet mean volume (Bld) [Entitic vol] 8.4 fL Low 9.0-12.7 [facility] [place] Comment on above: Order Comment: Speci men Type: BLOOD SPECIMENOrdering Facility: [facility] Address: [address] [place] [address] Performed By: #### 5 7021-8 ####[facility] HOSPITALNCLIA [id number] [place] [address] [place] Platelets (Bld) [#/Vol] 222 10*3/uL Normal 150-400 [facility] Comment on above: Order Comment: Speci men Type: BLOOD SPECIMENOrdering Facility: [facility] Address: [address] [place] [address] Performed By: #### 5 7021-8 ####[facility] HOSPITALNCLIA [id number] [place] [address] [place] RBC (Bld) [#/Vol] 4.74 10*6/uL Normal 4.20-6.00 [facility] Comment on above: Order Comment: Speci men Type: BLOOD SPECIMENOrdering Facility: [facility] Address: [address] [place] [address] Performed By: #### 5 7021-8 ####[facility] HOSPITALNCLIA [id number] [place] [address] [place] WBC (Bld) [#/Vol] 8.35 10*3/uL Normal 3.70-11.00 [facility] Comment on above: Order Comment: Speci men Type: BLOOD SPECIMENOrdering Facility: [facility] Address: [address] [place] [address] Performed By: #### 5 7021-8 ####[facility] HOSPITALNCLIA [id number] [place] [address] [place] Comprehensive metabolic 2000 panelon 08-12-2024 Albumin [Mass/Vol] 4.5 g/dL Normal 3.9-4.9 [facility] Comment on above: Order Comment: Speci men Type: BLOOD SPECIMENOrdering Facility: [facility] Address: [address] [place] [address] Performed By: #### 2 4323-8 ####[facility]OSPITALWNCLIA [id number] [place] [address] [place] ALP [Catalytic activity/Vol] 111 U/L Normal 38-113 [facility] Comment on above: Order Comment: Speci men Type: BLOOD SPECIMENOrdering Facility: [facility] Address: [address] [place] [address] Performed By: #### 2 4323-8 ####[facility] MILLWNCLIA [id number] [place] [address] [place] ALT [Catalytic activity/Vol] 19 U/L Normal 10-54 [facility] Comment on above: Order Comment: Speci men Type: BLOOD SPECIMENOrdering Facility: [facility] Address: [address] [place] [address] Performed By: #### 2 4323-8 ####[facility] CLINICLIA [id number] [place] [address] [place] Anion gap [Moles/Vol] 9 mmol/L Normal 8-15 [facility] Comment on above: Order Comment: Speci men Type: BLOOD SPECIMENOrdering Facility: [facility] Address: [address] [place] [address] Performed By: #### 2 4323-8 ####[facility] MILLTOWNCLIA [id number] [place] [address] [place] AST [Catalytic activity/Vol] 18 U/L Normal 14-40 [facility] Comment on above: Order Comment: Speci men Type: BLOOD SPECIMENOrdering Facility: [facility] Address: [address] [place] [address] Performed By: #### 2 4323-8 ####[facility] SALVATORE MILLTOWNCLIA [id number] [place] [address] [place] Bilirubin [Mass/Vol] 0.2 mg/dL Normal 0.2-1.3 [facility] Comment on above: Order Comment: Speci men Type: BLOOD SPECIMENOrdering Facility: [facility] Address: [address] [place] [address] Performed By: #### 2 4323-8 ####[facility] HOSPITALWNCLIA [id number] [place] [address] [place] Calcium [Mass/Vol] 10.6 mg/dL High 8.5-10.2 [facility] Comment on above: Order Comment: Speci men Type: BLOOD SPECIMENOrdering Facility: [facility] Address: [address] [place] [address] Performed By: #### 2 4323-8 ####[facility]OSPITALWNCLIA [id number] [place] [address] [place] Chloride [Moles/Vol] 103 mmol/L Normal 98-107 [facility] Comment on above: Order Comment: Speci men Type: BLOOD SPECIMENOrdering Facility: [facility] Address: [address] [place] [address] Performed By: #### 2 4323-8 ####[facility] MILLTOWNCLIA [id number] [place] [address] [place] CO2 [Moles/Vol] 29 mmol/L Normal 22-30 [facility] Comment on above: Order Comment: Speci men Type: BLOOD SPECIMENOrdering Facility: [facility] Address: [address] [place] [address] Performed By: #### 2 4323-8 ####[facility]OSPITALWNCLIA [id number] [place] [address] [place] Creatinine [Mass/Vol] 0.82 mg/dL Normal 0.73-1.22 [facility] Comment on above: Order Comment: Augustine zee Type: BLOOD SPECIMENOrdering Facility: [facility] Address: [address] [place] [address] Performed By: #### 2 4323-8 ####[facility] ER [id number] [place] [address] [place] Creatinine and Glomerular filtration rate.predicted panel (S/P/Bld) 98 mL/min/1.73m??? Normal >=60 [facility] Comment on above: Order Comment: Augustine zee Type: BLOOD SPECIMENOrdering Facility: [facility] Address: [address] [place] [address] Result Comment: Kisha mated Glomerular Filtration Rate [...] Performed By: #### 2 4323-8 ####[facility] ER [id number] [place] [address] [place] Glucose [Mass/Vol] 129 mg/dL High 74-99 [facility] Comment on above: Order Comment: Augustine zee Type: BLOOD SPECIMENOrdering Facility: [facility] Address: [address] [place] [address] Result Comment: The [place] [employer] (ADA) provides guidance for cutoff [...] Standards of Medical Care in Diabetes 2016, [place] [employer]. Diabetes Care. 2016.39(Suppl 1). Performed By: #### 2 4323-8 ####[facility] SAL[facility]ORE POPJUAN [id number] [place] [address] [place] Potassium [Moles/Vol] 4.4 mmol/L Normal 3.7-5.1 [facility] Comment on above: Order Comment: Speci men Type: BLOOD SPECIMENOrdering Facility: [facility] Address: [address] [place], [place] [address] Performed By: #### 2 4323-8 ####[facility] HOSPITALLEIGHTON [id number] [place] [address] [place] Protein [Mass/Vol] 7.0 g/dL Normal 6.3-8.0 [facility] Comment on above: Order Comment: Speci men Type: BLOOD SPECIMENOrdering Facility: [facility] Address: [address] [place] [address] Performed By: #### 2 4323-8 ####[facility] HOSPITALLEIGHTON [id number] [place] [address] [place] Sodium [Moles/Vol] 141 mmol/L Normal 136-144 [facility] Comment on above: Order Comment: Speci men Type: BLOOD SPECIMENOrdering Facility: [facility] Address: [address] [place] [address] Performed By: #### 2 4323-8 ####[facility] HOSPITALNCRAJEEV [id number] [place] [address] [place] Urea nitrogen [Mass/Vol] 13 mg/dL Normal 9-24 [facility] Comment on above: Order Comment: Speci men Type: BLOOD SPECIMENOrdering Facility: [facility] Address: [address] [place] [address] Performed By: #### 2 4323-8 ####[facility] SAL[facility] CENTERNCLI [id number] [place] [address] [place] CNPNon 08-11-2024 CNPN Normal [facility] CNOVSPon 08-06-2024 CNOVSP Normal [facility] CNPNon 08-06-2024 CNPN Normal [facility] CNPTOUTREACHon 08-03-2024 CNPTOUTREACH Normal [facility] CNPNon 07-30-2024 CNPN Normal [facility] CNOVon 07-19-2024 CNOV Normal [facility] CNPNon 07-15-2024 CNPN Normal [facility] CNNURSEon 06-28-2024 CNNURSE Normal [facility] CNOVon 06-23-2024 CNOV Normal [facility] CNOVSPon 06-23-2024 CNOVSP Normal [facility] XR CHEST PA+LAT 2 VIEWSon XR CHEST [...] cardiopulmonary abnormality identified. MACRO: None Normal [facility] XR Chest PA and Lateralon EXAMINATION: [...] No acute cardiopulmonary abnormality identified. MACRO: None [facility] Radiology Study observation (narrative) [facility] XR Chest PA and LateralOrder ed By: Keke Chavez on 06-21-2024 [facility] Work Phone: CNOVSPon 06-18-2024 CNOVSP Normal [facility] CNPNon 06-18-2024 CNPN Normal [facility] XR FEMUR 2V AP/LAT LTon 06-08 XR FEMUR 2V AP/LAT LT Normal [facility] 06-11-2024 CNPN Normal [facility] CBC W Auto Differential pane l (Bld)on 06-10-2024 Basophils (Bld) [#/Vol] 0.05 10*3/uL Normal <0.11 [facility] Comment on above: Order Comment: Speci men Type: BLOOD SPECIMENOrdering Facility: [facility] Address: [address] [place] [address] Performed By: #### 5 7021-8 ####[facility] LABORATORYCLIA [id number] [place] [address] [place] Basophils/100 WBC (Bld) 0.7 % Normal [facility] Comment on above: Order Comment: Speci men Type: BLOOD SPECIMENOrdering Facility: [facility] Address: [address] [place] [address] Performed By: #### 5 7021-8 ####[facility] LABORATORYCLIA [id number] [place] [address] [place] Differential cell count method Nom (Bld) Auto Normal [facility] Comment on above: Order Comment: Speci men Type: BLOOD SPECIMENOrdering Facility: [facility] Address: [address] [place] [address] Performed By: #### 5 7021-8 ####[facility]ATORYCLIA [id number] [address] Eosinophils (Bld) [#/Vol] 0.17 10*3/uL Normal <0.46 [facility] Comment on above: Order Comment: Speci men Type: BLOOD SPECIMENOrdering Facility: [facility] Address: [address] [place] [address] Performed By: #### 5 7021-8 ####[facility]ORATORYCLIA [id number] [address] Eosinophils/100 WBC (Bld) 2.5 % Normal [facility] Comment on above: Order Comment: Speci men Type: BLOOD SPECIMENOrdering Facility: [facility] Address: [address] [place] [address] Performed By: #### 5 7021-8 ####[facility]ATORYCLIA [id number] [address] Erythrocyte distribution width (RBC) [Ratio] 12.6 % Normal 11.5-15.0 [facility] Comment on above: Order Comment: Speci men Type: BLOOD SPECIMENOrdering Facility: [facility] Address: [address] [place] [address] Performed By: #### 5 7021-8 ####[facility]ATORYCLIA [id number] [address] Hematocrit (Bld) [Volume fraction] 37.6 % Low 39.0-51.0 [facility] Comment on above: Order Comment: Speci men Type: BLOOD SPECIMENOrdering Facility: [facility] Address: [address] [place] [address] Performed By: #### 5 7021-8 ####[facility]ATORYCLIA [id number] [address] Hemoglobin (Bld) [Mass/Vol] 12.8 g/dL Low 13.0-17.0 [facility] Comment on above: Order Comment: Speci men Type: BLOOD SPECIMENOrdering Facility: [facility] Address: [facility] [place] [address] Performed By: #### 5 7021-8 ####[facility]ATORYCLIA [id number] [place] [address] [place] Immature granulocytes (Bld) [#/Vol] 10*3/uL Normal <0.10 [facility] Comment on above: Order Comment: Speci men Type: BLOOD SPECIMENOrdering Facility: [facility] Address: [address] [place] [address] Performed By: #### 5 7021-8 ####[facility]ATORYCLIA [id number] [address] [place] Immature granulocytes/100 WBC (Bld) 0.3 % Normal [facility] Comment on above: Order Comment: Speci men Type: BLOOD SPECIMENOrdering Facility: [facility] Address: [address] [place] [address] Performed By: #### 5 7021-8 ####[facility]ORYCLIA [id number] [place] [address] [place] Lymphocytes (Bld) [#/Vol] 0.87 10*3/uL Low 1.00-4.00 [facility] Comment on above: Order Comment: Speci men Type: BLOOD SPECIMENOrdering Facility: [facility] Address: [address] [place] [address] Performed By: #### 5 7021-8 ####[facility]ATORYCLIA [id number] [place] [address] [place] Lymphocytes/100 WBC (Bld) 12.6 % Normal [facility] Comment on above: Order Comment: Speci men Type: BLOOD SPECIMENOrdering Facility: [facility] Address: [address] [place] [address] Performed By: #### 5 7021-8 ####[facility]ATORYCLIA [id number] [address] MCH (RBC) [Entitic mass] 29.0 pg Normal 26.0-34.0 [facility] Comment on above: Order Comment: Speci men Type: BLOOD SPECIMENOrdering Facility: [facility] Address: [address] [place] [address] Performed By: #### 5 7021-8 ####[facility]ATORYCLIA [id number] [address] [place] MCHC (RBC) [Mass/Vol] 34.0 g/dL Normal 30.5-36.0 [facility] Comment on above: Order Comment: Speci men Type: BLOOD SPECIMENOrdering Facility: [facility] Address: [address] [place] [address] Performed By: #### 5 7021-8 ####[facility]ORATORYCLIA [id number] [address] STATES [facility] MCV (RBC) [Entitic vol] 85.1 fL Normal 80.0-100.0 [facility] Comment on above: Order Comment: Speci men Type: BLOOD SPECIMENOrdering Facility: [facility] Address: [address] [place] [address] Performed By: #### 5 7021-8 ####[facility]ATORYCLIA [id number] [address] Monocytes (Bld) [#/Vol] 0.64 10*3/uL Normal <0.87 [facility] Comment on above: Order Comment: Speci men Type: BLOOD SPECIMENOrdering Facility: [facility] Address: [address] [place] [address] Performed By: #### 5 7021-8 ####[facility]ATORYCLIA [id number] [address] Monocytes/100 WBC (Bld) 9.2 % Normal [facility] Comment on above: Order Comment: Speci men Type: BLOOD SPECIMENOrdering Facility: [facility] Address: [address] [place] [address] Performed By: #### 5 7021-8 ####[facility]ORATORYCLIA [id number] [address] [place] Neutrophils (Bld) [#/Vol] 5.18 10*3/uL Normal 1.45-7.50 [facility] Comment on above: Order Comment: Speci men Type: BLOOD SPECIMENOrdering Facility: [facility] Address: [address] [place] [address] Performed By: #### 5 7021-8 ####[facility]ATORYCLIA [id number] [address] STATES [facility] Neutrophils/100 WBC (Bld) 74.7 % Normal [facility] Comment on above: Order Comment: Speci men Type: BLOOD SPECIMENOrdering Facility: [facility] Address: [address] [place] [address] Performed By: #### 5 7021-8 ####[facility]ATORYCLIA [id number] [address] Nucleated RBC (Bld) [#/Vol] 10*3/uL Normal <0.01 [facility] Comment on above: Order Comment: Speci men Type: BLOOD SPECIMENOrdering Facility: [facility] Address: [address] [place] [address] Performed By: #### 5 7021-8 ####[facility]ATORYCLIA [id number] [address] Nucleated RBC/100 WBC (Bld) [Ratio] 0.0 /100 WBC Normal [facility] Comment on above: Order Comment: Speci men Type: BLOOD SPECIMENOrdering Facility: [facility] Address: [address] [place] [address] Performed By: #### 5 7021-8 ####[facility]ORATORYCLIA [id number] [address] Platelet mean volume (Bld) [Entitic vol] 8.8 fL Low 9.0-12.7 [facility] Comment on above: Order Comment: Speci men Type: BLOOD SPECIMENOrdering Facility: [facility] Address: [address] [place] [address] Performed By: #### 5 7021-8 ####[facility]ATORYCLIA [id number] [address] Platelets (Bld) [#/Vol] 225 10*3/uL Normal 150-400 [facility] Comment on above: Order Comment: Speci men Type: BLOOD SPECIMENOrdering Facility: [facility] Address: [address] [place] [address] Performed By: #### 5 7021-8 ####[facility]ORATORYCLIA [id number] [address] OF [facility] RBC (Bld) [#/Vol] 4.42 10*6/uL Normal 4.20-6.00 [facility] Comment on above: Order Comment: Speci men Type: BLOOD SPECIMENOrdering Facility: [facility] Address: [address] [place] [address] Performed By: #### 5 7021-8 ####[facility]ORATORYCLIA [id number] [address] STATES OF [facility] WBC (Bld) [#/Vol] 6.93 10*3/uL Normal 3.70-11.00 [facility] Comment on above: Order Comment: Speci men Type: BLOOD SPECIMENOrdering Facility: [facility] Address: [address] [place] [address] Performed By: #### 5 7021-8 ####[facility]ORATORYCLIA [id number] [address] [place] CK SerPl-cCncon 06-10-2024 CK [Catalytic activity/Vol] 63 U/L Normal 51-298 [facility] Comment on above: Order Comment: Speci men Type: BLOOD SPECIMEN [facility] Address: [address] [place] [address] Performed By: #### 1 9123-9, 96207-9, 2157-6 #### [facility] CLIA [id number] [address] OF [facility] Comprehensive metabolic 2000 panelon 06-10-2024 Albumin [Mass/Vol] 4.2 g/dL Normal 3.9-4.9 [facility] Comment on above: Order Comment: Speci men Type: BLOOD SPECIMEN [facility] Address: [address] [place] [address] Performed By: #### 1 9123-9, 09003-8, 2157-02 #### [facility] CLIA [id number] [address] [place] ALP [Catalytic activity/Vol] 126 U/L High 38-113 [facility] Comment on above: Order Comment: Speci men Type: BLOOD SPECIMEN [facility] Address: [address] [place] [address] Performed By: #### 1 9123-9, 48145-8, 2157-02 #### [facility] CLIA [id number] [address] ALT With P-5'-P [Catalytic activity/Vol] 23 U/L Normal 10-54 [facility] Comment on above: Order Comment: Speci men Type: BLOOD SPECIMEN [facility] Address: [address] [place] [address] Performed By: #### 1 9123-9, 54180-9, 2157-02 #### [facility] CLIA [id number] [address] Anion gap [Moles/Vol] 12 mmol/L Normal 8-15 [facility] Comment on above: Order Comment: Speci men Type: BLOOD SPECIMEN [facility] Address: [address] [place] [address] Performed By: #### 1 9123-9, 57533-5, 2157-02 #### [facility] CLIA [id number] [address] [place] AST With P-5'-P [Catalytic activity/Vol] 19 U/L Normal 14-40 [facility] Comment on above: Order Comment: Speci men Type: BLOOD SPECIMEN [facility] Address: [address] [place] [address] Performed By: #### 1 9123-9, , 2157-02 #### [facility] CLIA [id number] [address] [place] [address] [place] Bilirubin [Mass/Vol] 0.5 mg/dL Normal 0.2-1.3 [facility] Comment on above: Order Comment: Speci men Type: BLOOD SPECIMEN [facility] Address: [address] [place] [address] Performed By: #### 1 9123-9, , 2157-02 #### [facility] CLIA [id number] [address] [place] [address] [place] Calcium [Mass/Vol] 9.8 mg/dL Normal 8.5-10.2 [facility] Comment on above: Order Comment: Speci men Type: BLOOD SPECIMEN [facility] Address: [address] [place] [address] Performed By: #### 1 9123-9, , 2157-02 #### [facility] CLIA [id number] [address] [place] [address] [place] Chloride [Moles/Vol] 103 mmol/L Normal 98-107 [facility] Comment on above: Order Comment: Speci men Type: BLOOD SPECIMEN [facility] Address: [address] [place] [address] Performed By: #### 1 9123-9, 81386-2, 2157-02 #### [facility] CLIA [id number] [address] [place] [address] [place] CO2 [Moles/Vol] 24 mmol/L Normal 22-30 [facility] Comment on above: Order Comment: Speci men Type: BLOOD SPECIMEN [facility] Address: [address] [place] [address] Performed By: #### 1 9123-9, 42277-2, 2157-02 #### [facility] CLIA [id number] [address] STATES OF [facility] Creatinine [Mass/Vol] 0.83 mg/dL Normal 0.73-1.22 [facility] Comment on above: Order Comment: Augustine zee Type: BLOOD SPECIMEN [facility] Address: [address] [place] [address] Performed By: #### 1 9123-9, 00247-2, 2157-02 #### [facility] CLIA [id number] [address] Creatinine and Glomerular filtration rate.predicted panel (S/P/Bld) 98 mL/min/1.73m??? Normal >=60 [facility] Comment on above: Order Comment: Augustine zee Type: BLOOD SPECIMEN [facility] Address: [address] [place] [address] Result Comment: Kisha mated Glomerular Filtration Rate [...] actual GFR. Performed By: #### 1 9123-9, 51083-3, 2157-02 #### [facility] CLIA [id number] [address] [place] Glucose [Mass/Vol] 119 mg/dL High 74-99 [facility] Comment on above: Order Comment: Augustine zee Type: BLOOD SPECIMEN [facility] Address: [address] [place] [address] Result Comment: The [place] [employer] (ADA) provides guidance for cutoff [...] Standards of Medical Care in Diabetes 2016, [place] [employer]. Diabetes Care. 2016.39(Suppl 1). Performed By: #### 1 9123-9, 43691-0, 2157-02 #### [facility] CLIA [id number] [address] [place] [address] [place] Potassium [Moles/Vol] 4.0 mmol/L Normal 3.7-5.1 [facility] Comment on above: Order Comment: Augustine zee Type: BLOOD SPECIMEN [facility] Address: [address] [place] [address] Performed By: #### 1 9123-9, , 2157-02 #### [facility] CLIA [id number] 1 [place] [address] [place] Protein [Mass/Vol] 7.1 g/dL Normal 6.3-8.0 [facility] Comment on above: Order Comment: Augustine zee Type: BLOOD SPECIMEN [facility] Address: [address] [place] [address] Performed By: #### 1 9123-9, , 2157-02 #### [facility] CLIA [id number] [address] [place] [address] [place] Sodium [Moles/Vol] 139 mmol/L Normal 136-144 [facility] Comment on above: Order Comment: Augustine zee Type: BLOOD SPECIMEN [facility] Address: [address] [place] [address] Performed By: #### 1 9123-9, , 2157-02 #### [facility] CLIA [id number] [address] [place] Urea nitrogen [Mass/Vol] 10 mg/dL Normal 9-24 [facility] Comment on above: Order Comment: Fatoui men Type: BLOOD SPECIMEN [facility] Address: [address] [place] [address] Performed By: #### 1 9123-9, 86958-9, 2157-6 #### [facility] CLIA [id number] [address] STATES OF [facility] ECG COMPLETEon 06-10-2024 ECG COMPLETE Ventricular Rate : 9 1 BPM Atrial Rate : 91 BPM P-R Interval : 154 ms QRS Duration : 78 ms Q-T Interval : 362 ms QTC Calculation(Bazett) : 445 ms Calculated P [place] : 65 degrees Calculated R [place] : 21 degrees Calculated T [place] : 59 degrees NORMAL SINUS RHYTHM POSSIBLE LEFT ATRIAL ENLARGEMENT LOW VOLTAGE QRS BORDERLINE ECG NO PREVIOUS ECGS AVAILABLE Confirmed by MD AVALOS PATRICIA ([id number]) on 06/10/2024 4:56:36 PM NAME : CHUN ALCARAZ PID : [id number] : 1960 Gender : Male Race : ORD : [id number] Procedure Date : Jun 10 2024 14:13:27 Edit Date : Jun 10 2024 16:56:40 Diagnosis: NORMAL SINUS RHYTHM POSSIBLE LEFT ATRIAL ENLARGEMENT LOW VOLTAGE QRS BORDERLINE ECG NO PREVIOUS ECGS AVAILABLE Confirmed by MD AVALOS PATRICIA ([id number]) on 06/10/2024 4:56:36 PM Test Reason : Chest Pain Location : 4 : [facility] EM Overread By : MD AVALOS PATRICIA Edited By : MD AVALOS PATRICIA Referred By : , Acquired by : JAVED RODRIGUEZ [facility] ED NOTEon 06-10-2024 ED NOTE HNO ID: [id number] Author: GINNA BUCHANAN RN Service: Emergency Medicine Author Type: Registered Nurse Type: ED Notes Filed: 06/10/2024 17:16 Note Text: This nurse bedside to place IV for pain medication. Pt states that he does not want IV and that he wants something PO so he can be discharged home. notified. [facility] ED NOTE HNO ID: [id number] Author: BENJAMIN CAPONE RN Service: ? Author Type: Registered Nurse Type: ED Notes Filed: 06/10/2024 16:17 Note Text: Bed: 28-ED Expected date: Expected time: Means of arrival: Comments: triage Normal [facility] ED NOTE HNO ID: [id number] Author: LAWRENCE DAMIAN RN Service: ? Author Type: Registered Nurse Type: ED Notes Filed: 06/10/2024 14:14 Note Text: Chemo//keep in IWR Normal [facility] ED PROV NOTEon 06-10-2024 ED PROV NOTE HNO ID: [id number] Author: ERNIE AVALOS MD Service: Emergency Medicine [...] patient and discussed management with the resident physician/PA/QUALITY MANAGEMENT NURSE. I reviewed the resident/PA/QUALITY MANAGEMENT NURSE's note and agree with documented findings and plan of care, unless otherwise listed above. I supervised procedures performed by resident physician/PA/QUALITY MANAGEMENT NURSE. EKG was normal sinus rhythm. CBC CMP [...] precautions given. ERNIE AVALOS 06/10/24 2107 Normal [facility] ED PROV NOTE HNO ID: [id number] Author: ERNIE AVALOS MD Service: Emergency Medicine [...] back. Was told to come down to [place] to get his pain under control. [...] and plugged other PAST SURGICAL HISTORY OF 9194-4852 shoulder scope bilateral right x 2 and left x 1 PAST SURGICAL HISTORY OF 200? knee scope bilateral PAST SURGICAL HISTORY OF 2010 laminectomy L4-L5 at [place] PAST SURGICAL HISTORY OF 2013 and remote [...] membrane normal (more content not included)... Normal [facility] ED Triage Noteon 06-10-2024 ED Triage Note HNO ID: [id number] Author: MCKENNA SAL APRN.[employer] STRAINING BAG WASHER Service: ? Author Type: Nurse Practitioner Type: [...] reflex Culture ECG COMPLETE SIGNATURE: Mckenna Sal APRN.[employer] STRAINING [employer]AG WASHER Normal [facility] Magnesium SerPl-mCncon 06-10 Magnesium [Mass/Vol] 1.8 mg/dL Normal 1.7-2.3 [facility] Comment on above: Order Comment: Speci men Type: BLOOD SPECIMEN [facility] Address: [address] [place] [address] Performed By: #### 1 9123-9, 86543-8, 2157-6 #### [facility] CLIA [id number] [address] [place] Urinalysis complete panel (U )on 06-10-2024 Bilirubin Ql (U) Negative Normal Negative [facility] Comment on above: Order Comment: Speci men Type: URINE SPECIMENOrdering Facility: [facility] Address: [address] [place] [address] Performed By: #### 2 4356-8 ####[facility]ATORYCLIA [id number] [address] [place] Clarity (Unsp spec) Clear Normal Clear [facility] Comment on above: Order Comment: Speci men Type: URINE SPECIMENOrdering Facility: [facility] Address: [address] [place] [address] Performed By: #### 2 4356-8 ####[facility]ATORYCLIA [id number] [address] Color (U) Colorless Normal yellow [facility] Comment on above: Order Comment: Speci men Type: URINE SPECIMENOrdering Facility: [facility] Address: [address] [place] [address] Performed By: #### 2 4356-8 ####[facility]ATORYCLIA [id number] [address] Glucose Test strip (U) [Mass/Vol] Negative Normal Trace, Negative [facility] Comment on above: Order Comment: Speci men Type: URINE SPECIMENOrdering Facility: [facility] Address: [facility] [place] [address] Performed By: #### 2 4356-8 ####[facility]ATORYCLIA [id number] [address] [place] Hemoglobin Ql (U) Negative Normal Negative, Trace [facility] Comment on above: Order Comment: Speci men Type: URINE SPECIMENOrdering Facility: [facility] Address: [facility] [place] [address] Performed By: #### 2 4356-8 ####[facility]ORYCLIA [id number] [address] Ketones Ql (U) Negative Normal Negative, Trace [facility] Comment on above: Order Comment: Speci men Type: URINE SPECIMENOrdering Facility: [facility] Address: [address] [place] [address] Performed By: #### 2 4356-8 ####[facility]ATORYCLIA [id number] [address] Leukocyte esterase Test strip Ql (U) Negative Normal Negative, 25 Melia/uL [facility] Comment on above: Order Comment: Speci men Type: URINE SPECIMENOrdering Facility: [facility] Address: [address] [place] [address] Performed By: #### 2 4356-8 ####[facility]ATORYCLIA [id number] [place] [address] [place] Nitrite Ql (U) Negative Normal Negative [facility] Comment on above: Order Comment: Speci men Type: URINE SPECIMENOrdering Facility: [facility] Address: [address] [place] [address] Performed By: #### 2 4356-8 ####[facility]ATORYCLIA [id number] [place] [address] [place] pH (U) 6.5 [pH] Normal 5.0-8.0 [facility] Comment on above: Order Comment: Speci men Type: URINE SPECIMENOrdering Facility: [facility] Address: [address] [place] [address] Performed By: #### 2 4356-8 ####[facility] [id number] [address] STATES [facility] Protein (U) [Mass/Vol] Negative Normal Trace, Negative [facility] Comment on above: Order Comment: Speci men Type: URINE SPECIMENOrdering Facility: [facility] Address: [address] [place] [address] Performed By: #### 2 4356-8 ####[facility]ATORYCLIA [id number] [place] [address] [place] RBC LM.HPF (Urine sed) [#/Area] 0-3 /HPF Normal 0-3 /HPF [facility] Comment on above: Order Comment: Speci men Type: URINE SPECIMENOrdering Facility: [facility] Address: [address] [place] [address] Performed By: #### 2 4356-8 ####[facility]ATORYCLIA [id number] [address] Specific gravity (U) [Rel density] 1.007 Normal 1.005-1.030 [facility] Comment on above: Order Comment: Speci men Type: URINE SPECIMENOrdering Facility: [facility] Address: [address] [place] [address] Performed By: #### 2 4356-8 ####[facility]ATORYCLIA [id number] [place] [address] [facility] Urobilinogen Ql (U) Normal Normal Normal [facility] Comment on above: Order Comment: Speci men Type: URINE SPECIMENOrdering Facility: [facility] Address: [address] [place] [address] Performed By: #### 2 4356-8 ####[facility]ATORYCLIA [id number] [address] WBC LM.HPF (Urine sed) [#/Area] 0-5 /HPF Normal 0-5 /HPF [facility] Comment on above: Order Comment: Speci men Type: URINE SPECIMENOrdering Facility: [facility] Address: [address] [place] [address] Performed By: #### 2 4356-8 ####[facility] [id number] [address] OF [facility] BRIEF OP NOTon 06-09-2024 BRIEF OP NOT HNO ID: [id number] Author: DANYELLE SINGH MD Service: Interventional Radiology Author Type: Physician Type: Brief Op Note Filed: 06/09/2024 13:11 Note Text: INTERVENTIONAL RADIOLOGY POST PROCEDURE NOTE DATE: 06/09/24 NAME: Chun Alcaraz LOG ID: [id number] Pre-Procedure Diagnosis: Lung cancer. Small bone lesions at T3, S1, left femur. Administration Professional: Surgeon(s) and Role: * Danyelle Singh MD, [...] see Radiology report for complete information Normal [facility] CT BX RIB/PELV/DONNELLY/SPINE Kina Domingo 06-09-2024 CT BX RIB/PELV/DONNELLY/SPINE PROC * * *Final Report* * * DATE OF EXAM: Jun 09 2024 1:22PM [facility] 2036 - CT BX RIB/PELV/DONNELLY/SPINE PROC / [...] short-term F/U imaging and/or re-biopsy will help. Geological Drafter[facility] Transcribe Date/Time: Jun 09 2024 9:01P Dictated by : DANYELLE SINGH MD This examination was interpreted and the report reviewed and electronically signed by: DANYELLE SINGH MD on Jun 09 2024 9:27PM EST [id number] Normal [facility] PT panel Coag (PPP)on 2023 INR Coag (PPP) [Relative time] 1.0 {INR} Normal 0.9-1.3 [facility] Comment on above: Order Comment: Speci men Type: BLOOD SPECIMENOrdering Facility: [facility] Address: [address] [place], [place] [address] Result Comment: Dotty min K Antagonist (VKA) Therapeutic Range: INR 2 to 3 (Target INR of 2.5) Note: For patients treated with VKA drugs, such as warfarin, the [employer] 2012 Guideline recommends [...] Chest 2012, 141:7S-47S [place] PETE et al. [facility] 2017, 70: 252-289 Performed By: #### 3 4528-0 ####[facility] LABORATORYCLIA [id number] [address] OF [facility] PT Coag (PPP) [Time] 10.6 s Normal 9.7-13.0 [facility] Comment on above: Order Comment: Speci saadia Type: BLOOD SPECIMENOrdering Facility: [facility] Address: [address] [place] [address] Performed By: #### 3 4528-0 ####[facility] LABORATORYCLIA [id number] [address] SURGICAL PATHOLOGYon CASE REPORT Normal [facility] Comment on above: Order Comment: Augustine zee Type: TISSUE SPECIMEN [facility] Address: [address] [place] [address] Result Comment: Surg ical Pathology Report Case: [id number] Authorizing Provider: Danyelle Singh, Collected: 06/09/2024 01:23 PM MD SHAYY [facility] Received: 06/10/2024 10:04 AM INTERVENTIONAL RADIOLOGY Pathologist: Mango Upton MD Specimen: Bone, Biopsy Performed By: #### S #### [facility] CLIA [id number] [address] [place] [address] CLINICAL HISTORY Lung cancer. Bone lesions Normal [facility] Comment on above: Order Comment: Augustine zee Type: TISSUE SPECIMEN [facility] Address: [address] [place] [address] Performed By: #### S #### [facility] CLIA [id number] [address] [place] [address] [facility] DIAGNOSIS COMMENT Normal [facility] Comment on above: Order Comment: Speci men Type: TISSUE SPECIMEN [facility] Address: [address] [place], [place] [address] Result Comment: The patient's history of lung [...] been determined by the performing laboratory within [facility]???s [facility] Pathology and Laboratory Medicine Department ([facility], [facility], [facility], [facility], [facility], [facility], or [facility]) in a manner consistent with CLIA requirements. One or more of these tests have not been cleared or approved by the FDA. [facility] is regulated under CLIA as qualified to perform high-complexity testing. These tests are used for clinical purposes. They should not be regarded as investigational or for research. Positive and negative controls stain appropriately. Performed By: #### S #### [facility] CLIA [id number] [address] [place] [address] FINAL DIAGNOSIS Normal [facility] Comment on above: Order Comment: Speci men Type: TISSUE SPECIMEN [facility] Address: [address] [place] [address] Result Comment: A. B one, T3 vertebra, left pedicle, biopsy: - Metastatic adenocarcinoma compatible with origin from lung primary (see comment). Performed By: #### S #### [facility] CLIA [id number] [address] FINAL PERFORMING LAB Normal [facility] Comment on above: Order Comment: Speci men Type: TISSUE SPECIMEN [facility] Address: [address] [place] [address] Result Comment: Diag nostic interpretation performed at [facility], [address] [place] [address] CLIA# [id number] Marina Porter: Ab Mercado M.D. Performed By: #### S #### [facility] CLIA [id number] [address] [place] [address] OF [facility] GROSS DESCRIPTION A. Bone, Biopsy Normal [facility] Comment on above: Order Comment: Speci men Type: TISSUE SPECIMEN [facility] Address: [address] [place] [address] Result Comment: Rece ived in formalin labeled bone biopsy are multiple jonas-red cylindrical segments of bone aggregating to 2.4 x 0.2 x 0.2 cm. The specimens are totally submitted in formalin in 1 cassette following a brief period of hydrochloric acid acid decalcification. Gross examination performed at [facility], [address] [place] [address] KVB June 10, 2024 11:37 AM Performed By: #### S #### [facility] CLIA [id number] [address] [place] [address] OF JOY HISTORY PHYSICALon HISTORY PHYSICAL HNO ID: [id number] Author: DANYELLE SINGH MD Service: Interventional Radiology Author Type: Physician Type: H&P Filed: 06/09/2024 12:20 Note Text: INTERVENTIONAL RADIOLOGY HISTORY AND PHYSICAL Date: 06/08/24 Name: Chun Alcaraz HPI: This is a 64 year [...] and plugged other PAST SURGICAL HISTORY OF 0465-1431 shoulder scope bilateral right x 2 and left x 1 PAST SURGICAL HISTORY OF 200? knee scope bilateral PAST SURGICAL HISTORY OF 2010 laminectomy L4-L5 at [place] PAST SURGICAL HISTORY OF 2014 and remote [...] or lesions (more content not included)... Normal [facility]Non [facility]-2024 [facility] CNOVSPon 06-04-2024 CNOVSP Normal [facility] CNPNon 06-04-2024 [facility] Normal [facility] GLU[facility]SE, BLOOD (POC)on 05-31 Glucose [Mass/Vol] 115 mg/dL Abnormal 74 - 99 mg/dL [facility] Comment on above: Location:[facility], [facility] [place], [place], [address] The Accu-Chek Inform II glucose meter has [...] Interpretation and review of laboratory results Abnormal [facility] NM PET/CT SKULL-THIGH SUBQon 05-31-2024 NM PET/CT SKULL-THIGH SUBQ * * *Final Report* * * DATE OF EXAM: May 31 2024 8:34AM [facility] 0063 - NM PET/CT SKULL-THIGH SUBQ / [...] * Uptake Time: 46 minutes * Radiopharmaceutical: O64-Chdyqbcxfznctwnlga (FDG) COMPARISON: FDG PET/CT 09/02/2023 CORRELATION: CT [...] of T1 vertebra, indeterminate, possibly infectious/inflammator y. Geological Drafter: NOHEMY Transcribe Date/Time: May 31 2024 12:56P Dictated by : LYLE WELLS MD This examination was interpreted and the report reviewed and electronically signed by: LYLE WELLS MD on May 31 2024 2:02PM EST [id number] [facility] PET+CT Guidance for localiza tion of [...] of T1 vertebra, indeterminate, possibly infectious/inflammator y. Geological Drafter: NOHEMY Transcribe Date/Time: May 31 2024 12:56P Dictated by : LYLE WELLS MD This examination was interpreted and the report reviewed and electronically signed by: LYLE WELLS MD on May 31 2024 2:02PM [facility] RADIOLOGY * * *Final Report* * * [...] * Uptake Time: 46 minutes * Radiopharmaceutical: Z04-Nmkfugemitguzazblx (FDG) COMPARISON: FDG PET/CT 09/02/2023 CORRELATION: CT [...] at the level of T1, SUV 4.9 [facility] Provider, [facility] - 05/31/2024 * * *Final Report* * [...] * Uptake Time: 46 minutes * Radiopharmaceutical: X83-Qssnigsulpgbiwcxyn (FDG) COMPARISON: FDG PET/CT 09/02/2023 CORRELATION: CT [...] of T1 vertebra, indeterminate, possibly infectious/inflammator y. Geological Drafter: PSCB Transcribe Date/Time: May 31 2024 12:56P Dictated by : LYLE WELLS MD This examination was interpreted and the report reviewed and electronically signed by: LYLE WELLS MD on May 31 2024 2:02PM EST [facility] Radiology Study observation (narrative) [facility] PET+CT Guidance for localiza tion of tumor of Skull base to mid-thigh-- W 18F-FDG IVOrdered By: Ccf Provider on 05-31-2024 [facility] CBC W Auto Differential pane l (Bld)on 05-27-2024 Basophils (Bld) [#/Vol] 0.06 10*3/uL Normal <0.11 [facility] Comment on above: Order Comment: Speci men Type: BLOOD SPECIMENOrdering Facility: [facility] Address: [address] [place] [address] Performed By: #### 5 7021-8 ####[facility] ER [id number] [place] [address] [place] Basophils/100 WBC (Bld) 0.9 % Normal [facility] Comment on above: Order Comment: Speci men Type: BLOOD SPECIMENOrdering Facility: [facility] Address: [address] [place] [address] Performed By: #### 5 7021-8 ####[facility] ER [id number] [place] [address] [place] Differential cell count method Nom (Bld) Auto Normal [facility] Comment on above: Order Comment: Speci men Type: BLOOD SPECIMENOrdering Facility: [facility] Address: [address] [place] [address] Performed By: #### 5 7021-8 ####[facility]ITALDENITAA [id number] [place] [address] [place] Eosinophils (Bld) [#/Vol] 0.24 10*3/uL Normal <0.46 [facility] Comment on above: Order Comment: Speci men Type: BLOOD SPECIMENOrdering Facility: [facility] Address: [address] [place] [address] Performed By: #### 5 7021-8 ####[facility] ER [id number] [place] [address] [place] Eosinophils/100 WBC (Bld) 3.5 % Normal [facility] Comment on above: Order Comment: Speci men Type: BLOOD SPECIMENOrdering Facility: [facility] Address: [address] [place] [address] Performed By: #### 5 7021-8 ####[facility] [id number] [place] [address] [place] Erythrocyte distribution width (RBC) [Ratio] 12.8 % Normal 11.5-15.0 [facility] Comment on above: Order Comment: Speci men Type: BLOOD SPECIMENOrdering Facility: [facility] Address: [address] [place] [address] Performed By: #### 5 7021-8 ####[facility]LIA [id number] [place] [address] [place] Hematocrit (Bld) [Volume fraction] 39.5 % Normal 39.0-51.0 [facility] Comment on above: Order Comment: Speci men Type: BLOOD SPECIMENOrdering Facility: [facility] Address: [address] [place] [address] Performed By: #### 5 7021-8 ####[facility] [id number] [place] [address] [place] Hemoglobin (Bld) [Mass/Vol] 13.1 g/dL Normal 13.0-17.0 [facility] Comment on above: Order Comment: Speci men Type: BLOOD SPECIMENOrdering Facility: [facility] Address: [address] [place] [address] Performed By: #### 5 7021-8 ####[facility] ER [id number] [place] [address] [place] Immature granulocytes (Bld) [#/Vol] 0.03 10*3/uL Normal <0.10 [facility] Comment on above: Order Comment: Speci men Type: BLOOD SPECIMENOrdering Facility: [facility] Address: [address] [place] [address] Performed By: #### 5 7021-8 ####[facility] ER [id number] [place] [address] [place] Immature granulocytes/100 WBC (Bld) 0.4 % Normal [facility] Comment on above: Order Comment: Speci men Type: BLOOD SPECIMENOrdering Facility: [facility] Address: [address] [place] [address] Performed By: #### 5 7021-8 ####[facility] ER [id number] [place] [address] [place] Lymphocytes (Bld) [#/Vol] 0.86 10*3/uL Low 1.00-4.00 [facility] Comment on above: Order Comment: Speci men Type: BLOOD SPECIMENOrdering Facility: [facility] Address: [address] [place] [address] Performed By: #### 5 7021-8 ####[facility]LI [id number] [place] [address] [place] Lymphocytes/100 WBC (Bld) 12.6 % Normal [facility] Comment on above: Order Comment: Speci men Type: BLOOD SPECIMENOrdering Facility: [facility] Address: [address] [place] [address] Performed By: #### 5 7021-8 ####[facility] ER [id number] [place] [address] [place] MCH (RBC) [Entitic mass] 28.3 pg Normal 26.0-34.0 [facility] Comment on above: Order Comment: Speci men Type: BLOOD SPECIMENOrdering Facility: [facility] Address: [address] [place] [address] Performed By: #### 5 7021-8 ####[facility] ER [id number] [place] [address] [place] MCHC (RBC) [Mass/Vol] 33.2 g/dL Normal 30.5-36.0 [facility] Comment on above: Order Comment: Speci men Type: BLOOD SPECIMENOrdering Facility: [facility] Address: [address] [place] [address] Performed By: #### 5 7021-8 ####[facility] ER [id number] [place] [address] [place] MCV (RBC) [Entitic vol] 85.3 fL Normal 80.0-100.0 [facility] Comment on above: Order Comment: Speci men Type: BLOOD SPECIMENOrdering Facility: [facility] Address: [address] [place], [place] [address] Performed By: #### 5 7021-8 ####[facility] ER [id number] [place] [address] [place] Monocytes (Bld) [#/Vol] 0.71 10*3/uL Normal <0.87 [facility] Comment on above: Order Comment: Speci men Type: BLOOD SPECIMENOrdering Facility: [facility] Address: [address] [place] [address] Performed By: #### 5 7021-8 ####[facility] KIESHAWDENITALIA [id number] [place] [address] [place] Monocytes/100 WBC (Bld) 10.4 % Normal [facility] Comment on above: Order Comment: Speci men Type: BLOOD SPECIMENOrdering Facility: [facility] Address: [address] [place] [address] Performed By: #### 5 7021-8 ####[facility]ITALNCLIA [id number] [place] [address] [place] Neutrophils (Bld) [#/Vol] 4.92 10*3/uL Normal 1.45-7.50 [facility] Comment on above: Order Comment: Speci men Type: BLOOD SPECIMENOrdering Facility: [facility] Address: [address] [place] [address] Performed By: #### 5 7021-8 ####[facility] CLINICLIA [id number] [place] [address] [place] Neutrophils/100 WBC (Bld) 72.2 % Normal [facility] Comment on above: Order Comment: Speci men Type: BLOOD SPECIMENOrdering Facility: [facility] Address: [address] [place] [address] Performed By: #### 5 7021-8 ####[facility]ITALNCLIA [id number] [place] [address] [place] Nucleated RBC (Bld) [#/Vol] 10*3/uL Normal <0.01 [facility] Comment on above: Order Comment: Speci men Type: BLOOD SPECIMENOrdering Facility: [facility] Address: [address] [place] [address] Performed By: #### 5 7021-8 ####[facility]ITALNCLIA [id number] [place] [address] [place] Nucleated RBC/100 WBC (Bld) [Ratio] 0.0 /100 WBC Normal [facility] Comment on above: Order Comment: Speci men Type: BLOOD SPECIMENOrdering Facility: [facility] Address: [address] [place] [address] Performed By: #### 5 7021-8 ####[facility] KIESHAWHITE HEATHLEIGHTON [id number] [place] [address] [place] Platelet mean volume (Bld) [Entitic vol] 8.4 fL Low 9.0-12.7 [facility] Comment on above: Order Comment: Speci men Type: BLOOD SPECIMENOrdering Facility: [facility] Address: [address] [place] [address] Performed By: #### 5 7021-8 ####[facility]OSPITALDENITARAJEEV [id number] [place] [address] [place] Platelets (Bld) [#/Vol] 252 10*3/uL Normal 150-400 [facility] Comment on above: Order Comment: Speci men Type: BLOOD SPECIMENOrdering Facility: [facility] Address: [address] [place] [address] Performed By: #### 5 7021-8 ####[facility] KIESHAWHITE HEATHDENITAYOHANAA [id number] [place] [address] [place] RBC (Bld) [#/Vol] 4.63 10*6/uL Normal 4.20-6.00 [facility] Comment on above: Order Comment: Speci men Type: BLOOD SPECIMENOrdering Facility: [facility] Address: [address] [place] [address] Performed By: #### 5 7021-8 ####[facility]ITALNCLIA [id number] [place] [address] [place] WBC (Bld) [#/Vol] 6.82 10*3/uL Normal 3.70-11.00 [facility] Comment on above: Order Comment: Speci men Type: BLOOD SPECIMENOrdering Facility: [facility] Address: [address] [place] [address] Performed By: #### 5 7021-8 ####[facility] H[facility]PITALDENITALIA [id number] [place] [address] [place] CNOVSPon 05-27-2024 CNOVSP Normal [facility] metabolic 2000 panelon 05-27-2024 Albumin [Mass/Vol] 4.4 g/dL Normal 3.9-4.9 [facility] Comment on above: Order Comment: Speci men Type: BLOOD SPECIMENOrdering Facility: [facility] Address: [address] [place] [address] Performed By: #### 2 4323-8 ####[facility] [id number] [place] [address] [place] ALP [Catalytic activity/Vol] 126 U/L High 38-113 [facility] Comment on above: Order Comment: Speci men Type: BLOOD SPECIMENOrdering Facility: [facility] Address: [address] [place] [address] Performed By: #### 2 4323-8 ####[facility] [id number] [place] [address] [place] ALT [Catalytic activity/Vol] 45 U/L Normal 10-54 [facility] Comment on above: Order Comment: Speci men Type: BLOOD SPECIMENOrdering Facility: [facility] Address: [address] [place] [address] Performed By: #### 2 4323-8 ####[facility]ITALNCLIA [id number] [place] [address] [place] Anion gap [Moles/Vol] 11 mmol/L Normal 8-15 [facility] Comment on above: Order Comment: Speci men Type: BLOOD SPECIMENOrdering Facility: [facility] Address: [address] [place] [address] Performed By: #### 2 4323-8 ####[facility]ITALNCLIA [id number] [place] [address] [place] AST [Catalytic activity/Vol] 29 U/L Normal 14-40 [facility] Comment on above: Order Comment: Speci men Type: BLOOD SPECIMENOrdering Facility: [facility] Address: [address] [place] [address] Performed By: #### 2 4323-8 ####[facility]ITALNCM[facility] [id number] [place] [address] [place] Bilirubin [Mass/Vol] 0.4 mg/dL Normal 0.2-1.3 [facility] Comment on above: Order Comment: Speci men Type: BLOOD SPECIMENOrdering Facility: [facility] Address: [address] [place] [address] Performed By: #### 2 4323-8 ####[facility]ITALNCLIA [id number] [place] [address] [place] Calcium [Mass/Vol] 10.3 mg/dL High 8.5-10.2 [facility] Comment on above: Order Comment: Speci men Type: BLOOD SPECIMENOrdering Facility: [facility] Address: [address] [place] [address] Performed By: #### 2 4323-8 ####[facility]ITALNCLIA [id number] [place] [address] [place] Chloride [Moles/Vol] 103 mmol/L Normal 98-107 [facility] Comment on above: Order Comment: Speci men Type: BLOOD SPECIMENOrdering Facility: [facility] Address: [address] [place] [address] Performed By: #### 2 4323-8 ####[facility]ITALNCLIA [id number] [place] [address] [place] CO2 [Moles/Vol] 25 mmol/L Normal 22-30 [facility] Comment on above: Order Comment: Speci men Type: BLOOD SPECIMENOrdering Facility: [facility] Address: [address] [place] [address] Performed By: #### 2 4323-8 ####[facility]ICLI [id number] [place] [address] [place] Creatinine [Mass/Vol] 0.79 mg/dL Normal 0.73-1.22 [facility] Comment on above: Order Comment: Speci men Type: BLOOD SPECIMENOrdering Facility: [facility] Address: [address] [place] [address] Performed By: #### 2 4323-8 ####[facility] ER [id number] [place] [address] [place] Creatinine and Glomerular filtration rate.predicted panel (S/P/Bld) 99 mL/min/1.73m??? Normal >=60 [facility] Comment on above: Order Comment: Speci men Type: BLOOD SPECIMENOrdering Facility: [facility] Address: [address] [place] [address] Result Comment: Kisha mated Glomerular Filtration Rate [...] Performed By: #### 2 4323-8 ####[facility]ITALWNCLIA [id number] [place] [address] [place] Glucose [Mass/Vol] 115 mg/dL High 74-99 [facility] Comment on above: Order Comment: Speci men Type: BLOOD SPECIMENOrdering Facility: [facility] Address: [address] [place] [address] Result Comment: The [place] [employer] (ADA) provides guidance for cutoff [...] Standards of Medical Care in Diabetes 2016, [place] [employer]. Diabetes Care. 2016.39(Suppl 1). Performed By: #### 2 4323-8 ####[facility] HOSPITALWDENITAMaricruz [id number] [place] [address] [place] Potassium [Moles/Vol] 4.4 mmol/L Normal 3.7-5.1 [facility] Comment on above: Order Comment: Fatoui men Type: BLOOD SPECIMENOrdering Facility: [facility] Address: [address] [place] [address] Performed By: #### 2 4323-8 ####[facility] HOSPITALLEIGHTON [id number] [place] [address] [place] Protein [Mass/Vol] 7.2 g/dL Normal 6.3-8.0 [facility] Comment on above: Order Comment: Speci men Type: BLOOD SPECIMENOrdering Facility: [facility] Address: [address] [place] [address] Performed By: #### 2 4323-8 ####[facility]PITALDENITALIA [id number] [place] [address] [place] Sodium [Moles/Vol] 139 mmol/L Normal 136-144 [facility] Comment on above: Order Comment: Speci men Type: BLOOD SPECIMENOrdering Facility: [facility] Address: [address] [place] [address] Performed By: #### 2 4323-8 ####[facility]ITALNCLIA [id number] [place] [address] [place] Urea nitrogen [Mass/Vol] 15 mg/dL Normal 9-24 [facility] Comment on above: Order Comment: Speci men Type: BLOOD SPECIMENOrdering Facility: [facility] Address: [address] [place] [address] Performed By: #### 2 4323-8 ####[facility]ITALNCA [id number] [place] [address] [place] Cortis SerPl-mCncon 05-27-20 24 Cortisol [Mass/Vol] 10.5 ug/dL Normal 4.8-19.5 [facility] Comment on above: Order Comment: Speci men Type: BLOOD SPECIMENOrdering Facility: [facility] Address: [address] [place] [address] Result Comment: Prov ided reference range is from 6-10 AM sample collection time.Cortisol Reference Range: 6-10 AM = 4.8-19.5 ug/dL, 4-8 PM = 2.5-11.9 ug/dL Performed By: #### 3 016-3, 2143-02 ####[facility] [id number] [facility] [id number], [place] [address] [place] TSH SerPl-aCncon 05-27-2024 TSH Qn 0.016 m[IU]/L Low 0.270-4.200 [facility] Comment on above: Order Comment: Speci men Type: BLOOD SPECIMENOrdering Facility: [facility] Address: [address] [place] [address] Performed By: #### 3 016-3, 2143-02 ####[facility]CL[facility] [id number] [facility] MED[facility] CENTERRojelio [facility] [id number], [place] [address] [place] CNOVon 05-19-2024 CNOV Normal [facility] UA DIP, URINE (POC)on 2023 BILIRUBIN UA (POCT) Negative Negative [facility] CLARITY UA (POCT) Clear [facility] COLOR UA (POCT) Yellow [facility] GLUCOSE UA (POCT) Negative Negative mg/dL [facility] Hemoglobin Ql (U) Negative Negative [facility] KETONE UA (POCT) Negative Negative mg/dL [facility] LEUKOCYTES UA (POCT) Negative Negative [facility] NITRITE UA (POCT) Negative Negative [facility] PH UA (POCT) 7.0 4.5 - 8.0 [facility] Protein Ql (U) Negative Negative mg/dL [facility] SPECIFIC GRAVITY UA (POCT) 1.015 1.005 - 1.030 [facility] UROBILINOGEN UA (POCT) 0.2 Normal E.U./dL [facility] Location:[address] POINT OF CARE [facility] CBC W Auto Differential pane l (Bld)on 05-17-2024 Basophils (Bld) [#/Vol] 0.06 10*3/uL Normal <0.11 [facility] Comment on above: Order Comment: Speci men Type: BLOOD SPECIMENOrdering Facility: [facility] Address: [address] [place] [address] Performed By: #### 5 7021-8 ####[facility] ER [id number] [place] [address] [place] Basophils/100 WBC (Bld) 1.1 % Normal [facility] Comment on above: Order Comment: Speci men Type: BLOOD SPECIMENOrdering Facility: [facility] Address: [address] [place] [address] Performed By: #### 5 7021-8 ####[facility] ER [id number] [place] [address] [place] Differential cell count method Nom (Bld) Auto Normal [facility] Comment on above: Order Comment: Speci men Type: BLOOD SPECIMENOrdering Facility: [facility] Address: [address] [place] [address] Performed By: #### 5 7021-8 ####[facility] ER [id number] [place] [address] [place] Eosinophils (Bld) [#/Vol] 0.16 10*3/uL Normal <0.46 [facility] Comment on above: Order Comment: Speci men Type: BLOOD SPECIMENOrdering Facility: [facility] Address: [address] [place] [address] Performed By: #### 5 7021-8 ####[facility] ER [id number] [place] [address] [place] Eosinophils/100 WBC (Bld) 2.8 % Normal [facility] Comment on above: Order Comment: Speci men Type: BLOOD SPECIMENOrdering Facility: [facility] Address: [address] [place] [address] Performed By: #### 5 7021-8 ####[facility] ER [id number] [place] [address] [place] Erythrocyte distribution width (RBC) [Ratio] 12.8 % Normal 11.5-15.0 [facility] Comment on above: Order Comment: Speci men Type: BLOOD SPECIMENOrdering Facility: [facility] Address: [address] [place] [address] Performed By: #### 5 7021-8 ####[facility] ER [id number] [place] [address] [place] Hematocrit (Bld) [Volume fraction] 38.8 % Low 39.0-51.0 [facility] Comment on above: Order Comment: Speci men Type: BLOOD SPECIMENOrdering Facility: [facility] Address: [address] [place] [address] Performed By: #### 5 7021-8 ####[facility] HOSPITALWNCLIA [id number] [place] [address] [place] Hemoglobin (Bld) [Mass/Vol] 13.2 g/dL Normal 13.0-17.0 [facility] Comment on above: Order Comment: Speci men Type: BLOOD SPECIMENOrdering Facility: [facility] Address: [address] [place] [address] Performed By: #### 5 7021-8 ####[facility]ITALNCLIA [id number] [place] [address] [place] Immature granulocytes (Bld) [#/Vol] 10*3/uL Normal <0.10 [facility] Comment on above: Order Comment: Speci men Type: BLOOD SPECIMENOrdering Facility: [facility] Address: [address] [place] [address] Performed By: #### 5 7021-8 ####[facility] CLINICLIA [id number] [place] [address] [place] Immature granulocytes/100 WBC (Bld) 0.4 % Normal [facility] Comment on above: Order Comment: Speci men Type: BLOOD SPECIMENOrdering Facility: [facility] Address: [address] [place] [address] Performed By: #### 5 7021-8 ####[facility] HOSPITALWNCLIA [id number] [place] [address] [place] Lymphocytes (Bld) [#/Vol] 0.90 10*3/uL Low 1.00-4.00 [facility] Comment on above: Order Comment: Speci men Type: BLOOD SPECIMENOrdering Facility: [facility] Address: [address] [place] [address] Performed By: #### 5 7021-8 ####[facility]ITALNCLIA [id number] [place] [address] [place] Lymphocytes/100 WBC (Bld) 15.8 % Normal [facility] Comment on above: Order Comment: Speci men Type: BLOOD SPECIMENOrdering Facility: [facility] Address: [address] [place] [address] Performed By: #### 5 7021-8 ####[facility] ER [id number] [place] [address] [place] MCH (RBC) [Entitic mass] 28.9 pg Normal 26.0-34.0 [facility] Comment on above: Order Comment: Speci men Type: BLOOD SPECIMENOrdering Facility: [facility] Address: [address] [place] [address] Performed By: #### 5 7021-8 ####[facility] ER [id number] [place] [address] [place] MCHC (RBC) [Mass/Vol] 34.0 g/dL Normal 30.5-36.0 [facility] Comment on above: Order Comment: Speci men Type: BLOOD SPECIMENOrdering Facility: [facility] Address: [address] [place] [address] Performed By: #### 5 7021-8 ####[facility] ER [id number] [place] [address] [place] MCV (RBC) [Entitic vol] 85.1 fL Normal 80.0-100.0 [facility] Comment on above: Order Comment: Speci men Type: BLOOD SPECIMENOrdering Facility: [facility] Address: [address] [place] [address] Performed By: #### 5 7021-8 ####[facility]ITALNCLI [id number] [place] [address] [place] Monocytes (Bld) [#/Vol] 0.53 10*3/uL Normal <0.87 [facility] Comment on above: Order Comment: Speci men Type: BLOOD SPECIMENOrdering Facility: [facility] Address: [address] [place] [address] Performed By: #### 5 7021-8 ####[facility] ER [id number] [place] [address] [place] Monocytes/100 WBC (Bld) 9.3 % Normal [facility] Comment on above: Order Comment: Speci men Type: BLOOD SPECIMENOrdering Facility: [facility] Address: [address] [place] [address] Performed By: #### 5 7021-8 ####[facility] ER [id number] [place] [address] [place] Neutrophils (Bld) [#/Vol] 4.04 10*3/uL Normal 1.45-7.50 [facility] Comment on above: Order Comment: Speci men Type: BLOOD SPECIMENOrdering Facility: [facility] Address: [address] [place] [address] Performed By: #### 5 7021-8 ####[facility] ER [id number] [place] [address] [place] Neutrophils/100 WBC (Bld) 70.6 % Normal [facility] Comment on above: Order Comment: Speci men Type: BLOOD SPECIMENOrdering Facility: [facility] Address: [address] [place] [address] Performed By: #### 5 7021-8 ####[facility]ENTERA [id number] [place] [address] [place] Nucleated RBC (Bld) [#/Vol] 10*3/uL Normal <0.01 [facility] Comment on above: Order Comment: Speci men Type: BLOOD SPECIMENOrdering Facility: [facility] Address: [address] [place] [address] Performed By: #### 5 7021-8 ####[facility] KIESHAWNCLIA [id number] [place] [address] [place] Nucleated RBC/100 WBC (Bld) [Ratio] 0.0 /100 WBC Normal [facility] Comment on above: Order Comment: Speci men Type: BLOOD SPECIMENOrdering Facility: [facility] Address: [address] [place] [address] Performed By: #### 5 7021-8 ####[facility]ITALNCLIA [id number] [place] [address] [place] Platelet mean volume (Bld) [Entitic vol] 8.7 fL Low 9.0-12.7 [facility] Comment on above: Order Comment: Speci men Type: BLOOD SPECIMENOrdering Facility: [facility] Address: [address] [place] [address] Performed By: #### 5 7021-8 ####[facility]ITALNCLIA [id number] [place] [address] [place] Platelets (Bld) [#/Vol] 219 10*3/uL Normal 150-400 [facility] Comment on above: Order Comment: Speci men Type: BLOOD SPECIMENOrdering Facility: [facility] Address: [address] [place] [address] Performed By: #### 5 7021-8 ####[facility]ITALNCLIA [id number] [place] [address] [place] RBC (Bld) [#/Vol] 4.56 10*6/uL Normal 4.20-6.00 [facility] Comment on above: Order Comment: Speci men Type: BLOOD SPECIMENOrdering Facility: [facility] Address: [address] [place] [address] Performed By: #### 5 7021-8 ####[facility]ITALNCLIA [id number] [place] [address] [place] WBC (Bld) [#/Vol] 5.71 10*3/uL Normal 3.70-11.00 [facility] Comment on above: Order Comment: Speci men Type: BLOOD SPECIMENOrdering Facility: [facility] Address: [address] [place] [address] Performed By: #### 5 7021-8 ####[facility] ER [id number] [place] [address] [place] [facility] [place] Comprehensive metabolic 2000 panelon 05-17-2024 Albumin [Mass/Vol] 4.5 g/dL Normal 3.9-4.9 [facility] Comment on above: Order Comment: Speci men Type: BLOOD SPECIMENOrdering Facility: [facility] Address: [address] [place] [address] Performed By: #### 2 4323-8 ####[facility] ER [id number] [place] [address] [place] ALP [Catalytic activity/Vol] 122 U/L High 38-113 [facility] Comment on above: Order Comment: Speci men Type: BLOOD SPECIMENOrdering Facility: [facility] Address: [address] [place] [address] Performed By: #### 2 4323-8 ####[facility] ER [id number] [place] [address] [place] ALT [Catalytic activity/Vol] 47 U/L Normal 10-54 [facility] Comment on above: Order Comment: Speci men Type: BLOOD SPECIMENOrdering Facility: [facility] Address: [address] [place] [address] Performed By: #### 2 4323-8 ####[facility] ER [id number] [place] [address] [place] Anion gap [Moles/Vol] 11 mmol/L Normal 8-15 [facility] Comment on above: Order Comment: Speci men Type: BLOOD SPECIMENOrdering Facility: [facility] Address: [address] [place] [address] Performed By: #### 2 4323-8 ####[facility]ITALNCLI [id number] [place] [address] [place] AST [Catalytic activity/Vol] 36 U/L Normal 14-40 [facility] Comment on above: Order Comment: Speci men Type: BLOOD SPECIMENOrdering Facility: [facility] Address: [address] [place] [address] Performed By: #### 2 4323-8 ####[facility]ITALNCMO[facility] [id number] [place] [address] [place] Bilirubin [Mass/Vol] 0.4 mg/dL Normal 0.2-1.3 [facility] Comment on above: Order Comment: Speci men Type: BLOOD SPECIMENOrdering Facility: [facility] Address: [address] [place] [address] Performed By: #### 2 4323-8 ####[facility]ITALNCLI [id number] [place] [address] [place] Calcium [Mass/Vol] 10.1 mg/dL Normal 8.5-10.2 [facility] Comment on above: Order Comment: Speci men Type: BLOOD SPECIMENOrdering Facility: [facility] Address: [address] [place] [address] Performed By: #### 2 4323-8 ####[facility]ITALNCLI [id number] [place] [address] [place] Chloride [Moles/Vol] 105 mmol/L Normal 98-107 [facility] Comment on above: Order Comment: Speci men Type: BLOOD SPECIMENOrdering Facility: [facility] Address: [address] [place], [place] [address] Performed By: #### 2 4323-8 ####[facility] GIORGINCRAJEEV [id number] [place] [address] [place] CO2 [Moles/Vol] 23 mmol/L Normal 22-30 [facility] Comment on above: Order Comment: Speci men Type: BLOOD SPECIMENOrdering Facility: [facility] Address: [address] [place] [address] Performed By: #### 2 4323-8 ####[facility]ITALNCMO[facility] [id number] [place] [address] [place] Creatinine [Mass/Vol] 0.78 mg/dL Normal 0.73-1.22 [facility] Comment on above: Order Comment: Speci men Type: BLOOD SPECIMENOrdering Facility: [facility] Address: [address] [place] [address] Performed By: #### 2 4323-8 ####[facility]ITALNCA [id number] [place] [address] [place] Creatinine and Glomerular filtration rate.predicted panel (S/P/Bld) 100 mL/min/1.73m??? Normal >=60 [facility] Comment on above: Order Comment: Speci men Type: BLOOD SPECIMENOrdering Facility: [facility] Address: [address] [place] [address] Result Comment: Kisha mated Glomerular Filtration Rate [...] Performed By: #### 2 4323-8 ####[facility]ITALWNCLIA [id number] [place] [address] [place] Glucose [Mass/Vol] 118 mg/dL High 74-99 [facility] Comment on above: Order Comment: Speci men Type: BLOOD SPECIMENOrdering Facility: [facility] Address: [address] [place] [address] Result Comment: The [place] [employer] (ADA) provides guidance for cutoff [...] Standards of Medical Care in Diabetes 2016, [place] [employer]. Diabetes Care. 2016.39(Suppl 1). Performed By: #### 2 4323-8 ####[facility]ITALWNCLIA [id number] [place] [address] [place] Potassium [Moles/Vol] 4.2 mmol/L Normal 3.7-5.1 [facility] Comment on above: Order Comment: Fatoui men Type: BLOOD SPECIMENOrdering Facility: [facility] Address: [address] [place] [address] Performed By: #### 2 4323-8 ####[facility]ITALWNCLIA [id number] [place] [address] [place] Protein [Mass/Vol] 6.8 g/dL Normal 6.3-8.0 [facility] Comment on above: Order Comment: Speci men Type: BLOOD SPECIMENOrdering Facility: [facility] Address: [address] [place] [address] Performed By: #### 2 4323-8 ####[facility]ITALWNCLIA [id number] [place] [address] [place] Sodium [Moles/Vol] 139 mmol/L Normal 136-144 [facility] Comment on above: Order Comment: Speci men Type: BLOOD SPECIMENOrdering Facility: [facility] Address: [address] [place] [address] Performed By: #### 2 4323-8 ####[facility] ER [id number] [place] [address] [place] Urea nitrogen [Mass/Vol] 15 mg/dL Normal 9-24 [facility] Comment on above: Order Comment: Speci men Type: BLOOD SPECIMENOrdering Facility: [facility] Address: [address] [place] [address] Performed By: #### 2 4323-8 ####[facility]A [id number] [place] [address] [place] Cortis SerPl-mCncon 05-17-20 24 Cortisol [Mass/Vol] 2.9 ug/dL Low 4.8-19.5 [facility] Comment on above: Order Comment: Speci men Type: BLOOD SPECIMENOrdering Facility: [facility] Address: [address] [place] [address] Result Comment: Prov ided reference range is from 6-10 AM sample collection time.Cortisol Reference Range: 6-10 AM = 4.8-19.5 ug/dL, 4-8 PM = 2.5-11.9 ug/dL Performed By: #### 2 143-6, 3016-3 ####[facility] [id number] [facility] [id number] [address] [place] TSH SerPl-aCncon 05-17-2024 TSH Qn 0.027 m[IU]/L Low 0.270-4.200 [facility] Comment on above: Order Comment: Speci men Type: BLOOD SPECIMENOrdering Facility: [facility] Address: [address] [place] [address] Performed By: #### 2 143-6, 3016-3 ####[facility] [id number] [address] [place] [address] [place] CNPNon 05-13-2024 CNPN Normal [facility] CBC W Auto Differential pane l (Bld)on 04-30-2024 Basophils (Bld) [#/Vol] 0.07 10*3/uL Normal <0.11 [facility] Comment on above: Order Comment: Speci men Type: BLOOD SPECIMENOrdering Facility: [facility] Address: [address] [place] [address] Performed By: #### 5 7021-8 ####[facility] MILLWNCLIA [id number] [place] [address] [place] Basophils/100 WBC (Bld) 1.4 % Normal [facility] Comment on above: Order Comment: Speci men Type: BLOOD SPECIMENOrdering Facility: [facility] Address: [address] [place] [address] Performed By: #### 5 7021-8 ####[facility] CLINICLIA [id number] [place] [address] [place] Differential cell count method Nom (Bld) Auto Normal [facility] Comment on above: Order Comment: Speci men Type: BLOOD SPECIMENOrdering Facility: [facility] Address: [address] [place] [address] Performed By: #### 5 7021-8 ####[facility] MILLWNCLIA [id number] [place] [address] [place] Eosinophils (Bld) [#/Vol] 0.36 10*3/uL Normal <0.46 [facility] Comment on above: Order Comment: Speci men Type: BLOOD SPECIMENOrdering Facility: [facility] Address: [address] [place] [address] Performed By: #### 5 7021-8 ####[facility] MILLWNCLIA [id number] [place] [address] [place] Eosinophils/100 WBC (Bld) 7.0 % Normal [facility] Comment on above: Order Comment: Speci men Type: BLOOD SPECIMENOrdering Facility: [facility] Address: [address] [place] [address] Performed By: #### 5 7021-8 ####[facility]PITALNCA [id number] [place] [address] [place] Erythrocyte distribution width (RBC) [Ratio] 12.6 % Normal 11.5-15.0 [facility] Comment on above: Order Comment: Speci men Type: BLOOD SPECIMENOrdering Facility: [facility] Address: [address] [place] [address] Performed By: #### 5 7021-8 ####[facility]ITALNCMO[facility] [id number] [place] [address] [place] Hematocrit (Bld) [Volume fraction] 41.3 % Normal 39.0-51.0 [facility] Comment on above: Order Comment: Speci men Type: BLOOD SPECIMENOrdering Facility: [facility] Address: [address] [place] [address] Performed By: #### 5 7021-8 ####[facility] [id number] [place] [address] [place] Hemoglobin (Bld) [Mass/Vol] 13.5 g/dL Normal 13.0-17.0 [facility] Comment on above: Order Comment: Speci men Type: BLOOD SPECIMENOrdering Facility: [facility] Address: [address] [place] [address] Performed By: #### 5 7021-8 ####[facility]ITALNCLIA [id number] [place] [address] [place] Immature granulocytes (Bld) [#/Vol] 10*3/uL Normal <0.10 [facility] Comment on above: Order Comment: Speci men Type: BLOOD SPECIMENOrdering Facility: [facility] Address: [address] [place] [address] Performed By: #### 5 7021-8 ####[facility] KIESHAHENRY [id number] [place] [address] [place] Immature granulocytes/100 WBC (Bld) 0.4 % Normal [facility] Comment on above: Order Comment: Speci men Type: BLOOD SPECIMENOrdering Facility: [facility] Address: [address] [place] [address] Performed By: #### 5 7021-8 ####[facility]ITALNCMO[facility] [id number] [place] [address] [place] Lymphocytes (Bld) [#/Vol] 0.99 10*3/uL Low 1.00-4.00 [facility] Comment on above: Order Comment: Speci men Type: BLOOD SPECIMENOrdering Facility: [facility] Address: [address] [place] [address] Performed By: #### 5 7021-8 ####[facility] ER [id number] [place] [address] [place] Lymphocytes/100 WBC (Bld) 19.3 % Normal [facility] Comment on above: Order Comment: Speci men Type: BLOOD SPECIMENOrdering Facility: [facility] Address: [address] [place] [address] Performed By: #### 5 7021-8 ####[facility] CLINICLIA [id number] [place] [address] [place] MCH (RBC) [Entitic mass] 29.2 pg Normal 26.0-34.0 [facility] Comment on above: Order Comment: Speci men Type: BLOOD SPECIMENOrdering Facility: [facility] Address: [address] [place] [address] Performed By: #### 5 7021-8 ####[facility]ITALNCLIA [id number] [place] [address] [place] MCHC (RBC) [Mass/Vol] 32.7 g/dL Normal 30.5-36.0 [facility] Comment on above: Order Comment: Speci men Type: BLOOD SPECIMENOrdering Facility: [facility] Address: [address] [place] [address] Performed By: #### 5 7021-8 ####[facility] [id number] [place] [address] [place] MCV (RBC) [Entitic vol] 89.4 fL Normal 80.0-100.0 [facility] [place] Comment on above: Order Comment: Speci men Type: BLOOD SPECIMENOrdering Facility: [facility] Address: [address] [place] [address] Performed By: #### 5 7021-8 ####[facility] ER [id number] [place] [address] [place] Monocytes (Bld) [#/Vol] 0.56 10*3/uL Normal <0.87 [facility] Comment on above: Order Comment: Speci men Type: BLOOD SPECIMENOrdering Facility: [facility] Address: [address] [place] [address] Performed By: #### 5 7021-8 ####[facility] [id number] [place] [address] [place] Monocytes/100 WBC (Bld) 10.9 % Normal [facility] [place] Comment on above: Order Comment: Speci men Type: BLOOD SPECIMENOrdering Facility: [facility] Address: [address] [place] [address] Performed By: #### 5 7021-8 ####[facility]ITALNCLI [id number] [place] [address] [place] Neutrophils (Bld) [#/Vol] 3.14 10*3/uL Normal 1.45-7.50 [facility] [place] Comment on above: Order Comment: Speci men Type: BLOOD SPECIMENOrdering Facility: [facility] Address: [address] [place] [address] Performed By: #### 5 7021-8 ####[facility] CLINICLIA [id number] [place] [address] [place] Neutrophils/100 WBC (Bld) 61.0 % Normal [facility] [place] Comment on above: Order Comment: Speci men Type: BLOOD SPECIMENOrdering Facility: [facility] Address: [address] [place] [address] Performed By: #### 5 7021-8 ####[facility] ER [id number] [place] [address] [place] Nucleated RBC (Bld) [#/Vol] 10*3/uL Normal <0.01 [facility] [place] Comment on above: Order Comment: Speci men Type: BLOOD SPECIMENOrdering Facility: [facility] Address: [address] [place] [address] Performed By: #### 5 7021-8 ####[facility] ER [id number] [place] [address] [place] Nucleated RBC/100 WBC (Bld) [Ratio] 0.0 /100 WBC Normal [facility] [place] Comment on above: Order Comment: Speci men Type: BLOOD SPECIMENOrdering Facility: [facility] Address: [address] [place] [address] Performed By: #### 5 7021-8 ####[facility]ITALNCLI [id number] [place] [address] [place] Platelet mean volume (Bld) [Entitic vol] 8.5 fL Low 9.0-12.7 [facility] Comment on above: Order Comment: Speci men Type: BLOOD SPECIMENOrdering Facility: [facility] Address: [address] [place] [address] Performed By: #### 5 7021-8 ####[facility] GIORGINCLIA [id number] [place] [address] [place] Platelets (Bld) [#/Vol] 190 10*3/uL Normal 150-400 [facility] [place] Comment on above: Order Comment: Speci men Type: BLOOD SPECIMENOrdering Facility: [facility] Address: [address] [place] [address] Performed By: #### 5 7021-8 ####[facility] KIESHAWHITE HEATHNCLIA [id number] [place] [address] [place] RBC (Bld) [#/Vol] 4.62 10*6/uL Normal 4.20-6.00 [facility] Comment on above: Order Comment: Speci men Type: BLOOD SPECIMENOrdering Facility: [facility] Address: [address] [place] [address] Performed By: #### 5 7021-8 ####[facility] KIESHAWHITE HEATHNCYOHANAA [id number] [place] [address] [place] WBC (Bld) [#/Vol] 5.14 10*3/uL Normal 3.70-11.00 [facility] Comment on above: Order Comment: Speci men Type: BLOOD SPECIMENOrdering Facility: [facility] Address: [address] [place] [address] Performed By: #### 5 7021-8 ####[facility]ITALNCLIA [id number] [place] [address] [place] CNOVSPon 04-30-2024 CNOVSP Normal [facility] metabolic 2000 panelon 04-30-2024 Albumin [Mass/Vol] 4.8 g/dL Normal 3.9-4.9 [facility] Comment on above: Order Comment: Speci men Type: BLOOD SPECIMENOrdering Facility: [facility] Address: [address] [place] [address] Performed By: #### 2 4323-8 ####[facility] SALVATORE MILLTOWNCLIA [id number] [place] [address] [place] ALP [Catalytic activity/Vol] 105 U/L Normal 38-113 [facility] Comment on above: Order Comment: Speci men Type: BLOOD SPECIMENOrdering Facility: [facility] Address: [address] [place] [address] Performed By: #### 2 4323-8 ####[facility] SAL[facility] MILLTOWNCLIA [id number] [place] [address] [place] ALT [Catalytic activity/Vol] 68 U/L High 10-54 [facility] Comment on above: Order Comment: Speci men Type: BLOOD SPECIMENOrdering Facility: [facility] Address: [address] [place] [address] Performed By: #### 2 4323-8 ####[facility] MILLWNCLIA [id number] [place] [address] [place] Anion gap [Moles/Vol] 11 mmol/L Normal 8-15 [facility] [place] Comment on above: Order Comment: Speci men Type: BLOOD SPECIMENOrdering Facility: [facility] Address: [address] [place] [address] Performed By: #### 2 4323-8 ####[facility] SAL[facility]ORE MILLTOWNCLIA [id number] [place] [address] [place] AST [Catalytic activity/Vol] 40 U/L Normal 14-40 [facility] Comment on above: Order Comment: Speci men Type: BLOOD SPECIMENOrdering Facility: [facility] Address: [address] [place] [address] Performed By: #### 2 4323-8 ####[facility] SALVATOREINTEGRIS BAPTIST MEDICAL CENTER – OKLAHOMA CITYLIA [id number] [place] [address] [place] Bilirubin [Mass/Vol] 0.3 mg/dL Normal 0.2-1.3 [facility] Comment on above: Order Comment: Speci men Type: BLOOD SPECIMENOrdering Facility: [facility] Address: [address] [place] [address] Performed By: #### 2 4323-8 ####[facility] MILLWNCLIA [id number] [place] [address] [place] Calcium [Mass/Vol] 10.0 mg/dL Normal 8.5-10.2 [facility] Comment on above: Order Comment: Speci men Type: BLOOD SPECIMENOrdering Facility: [facility] Address: [address] [place] [address] Performed By: #### 2 4323-8 ####[facility]OSPITALWNCLIA [id number] [place] [address] [place] Chloride [Moles/Vol] 103 mmol/L Normal 98-107 [facility] Comment on above: Order Comment: Speci men Type: BLOOD SPECIMENOrdering Facility: [facility] Address: [address] [place] [address] Performed By: #### 2 4323-8 ####[facility] SALVATOREMOUNT ASCUTNEY HOSPITALWNCLIA [id number] [place] [address] [place] CO2 [Moles/Vol] 25 mmol/L Normal 22-30 [facility] Comment on above: Order Comment: Speci men Type: BLOOD SPECIMENOrdering Facility: [facility] Address: [address] [place] [address] Performed By: #### 2 4323-8 ####[facility] SALVATORE MILLTOWNCLIA [id number] [place] [address] [place] Creatinine [Mass/Vol] 0.90 mg/dL Normal 0.73-1.22 [facility] Comment on above: Order Comment: Augustine zee Type: BLOOD SPECIMENOrdering Facility: [facility] Address: [address] [place] [address] Performed By: #### 2 4323-8 ####[facility]ITALNCMO[facility] [id number] [place] [address] [place] Creatinine and Glomerular filtration rate.predicted panel (S/P/Bld) 96 mL/min/1.73m??? Normal >=60 [facility] [place] Comment on above: Order Comment: Augustine zee Type: BLOOD SPECIMENOrdering Facility: [facility] Address: [address] [place] [address] Result Comment: Kisha mated Glomerular Filtration Rate [...] Performed By: #### 2 4323-8 ####[facility] ER [id number] [place] [address] [place] Glucose [Mass/Vol] 143 mg/dL High 74-99 [facility] Comment on above: Order Comment: Augustine zee Type: BLOOD SPECIMENOrdering Facility: [facility] Address: [address] [place] [address] Result Comment: The [place] [employer] (ADA) provides guidance for cutoff [...] Standards of Medical Care in Diabetes 2016, [place] [employer]. Diabetes Care. 2016.39(Suppl 1). Performed By: #### 2 4323-8 ####[facility] MILLBENWDENITALIA [id number] [place] [address] [place] Potassium [Moles/Vol] 4.3 mmol/L Normal 3.7-5.1 [facility] [place] Comment on above: Order Comment: Speci men Type: BLOOD SPECIMENOrdering Facility: [facility] Address: [address] [place] [address] Performed By: #### 2 4323-8 ####[facility] KIESHAJUSTUSLIA [id number] [place] [address] [place] Protein [Mass/Vol] 7.3 g/dL Normal 6.3-8.0 [facility] Comment on above: Order Comment: Speci men Type: BLOOD SPECIMENOrdering Facility: [facility] Address: [address] [place] [address] Performed By: #### 2 4323-8 ####[facility] CENTERBUCKYNCLIA [id number] [place] [address] [place] Sodium [Moles/Vol] 139 mmol/L Normal 136-144 [facility] Comment on above: Order Comment: Speci men Type: BLOOD SPECIMENOrdering Facility: [facility] Address: [address] [place] [address] Performed By: #### 2 4323-8 ####[facility] MILLBENWNCLIA [id number] [place] [address] [place] Urea nitrogen [Mass/Vol] 19 mg/dL Normal 9-24 [facility] [place] Comment on above: Order Comment: Speci men Type: BLOOD SPECIMENOrdering Facility: [facility] Address: [address] [place] [address] Performed By: #### 2 4323-8 ####[facility] CENTERDENITALIA [id number] [place] [address] [place] Cortis SerPl-mCncon 04-30-20 24 Cortisol [Mass/Vol] 9.3 ug/dL Normal 4.8-19.5 [facility] Comment on above: Order Comment: Speci men Type: BLOOD SPECIMENOrdering Facility: [facility] Address: [address] [place] [address] Result Comment: Prov ided reference range is from 6-10 AM sample collection time.Cortisol Reference Range: 6-10 AM = 4.8-19.5 ug/dL, 4-8 PM = 2.5-11.9 ug/dL Performed By: #### 3 016-3, 2143-02 ####[facility] LABCLIA [id number] [place] [address] [place] TSH SerPl-aCncon 04-30-2024 TSH Qn 1.730 m[IU]/L Normal 0.270-4.200 [facility] [place] Comment on above: Order Comment: Speci men Type: BLOOD SPECIMENOrdering Facility: [facility] Address: [address] [place] [address] Performed By: #### 3 016-3, 2143-02 ####[facility] LABCLIA [id number] [place] [address] [place] CBC W Auto Differential pane l (Bld)on 04-19-2024 Basophils (Bld) [#/Vol] 0.07 10*3/uL Normal <0.11 [facility] Comment on above: Order Comment: Speci men Type: BLOOD SPECIMENOrdering Facility: [facility] Address: [address] [place] [address] Performed By: #### 5 7021-8 ####[facility] SAL[facility]ATORE [facility] [id number] [place] [address] [place] Basophils/100 WBC (Bld) 1.3 % Normal [facility] Comment on above: Order Comment: Speci men Type: BLOOD SPECIMENOrdering Facility: [facility] Address: [address] [place] [address] Performed By: #### 5 7021-8 ####[facility] GIORGIJUANA [id number] [place] [address] [place] Differential cell count method Nom (Bld) Auto Normal [facility] Comment on above: Order Comment: Speci men Type: BLOOD SPECIMENOrdering Facility: [facility] Address: [address] [place] [address] Performed By: #### 5 7021-8 ####[facility] KIESHAGERALDOA [id number] [place] [address] [place] Eosinophils (Bld) [#/Vol] 0.30 10*3/uL Normal <0.46 [facility] [place] Comment on above: Order Comment: Speci men Type: BLOOD SPECIMENOrdering Facility: [facility] Address: [address] [place] [address] Performed By: #### 5 7021-8 ####[facility] KIESHAGERALDOA [id number] [place] [address] [place] Eosinophils/100 WBC (Bld) 5.6 % Normal [facility] [place] Comment on above: Order Comment: Speci men Type: BLOOD SPECIMENOrdering Facility: [facility] Address: [address] [place] [address] Performed By: #### 5 7021-8 ####[facility] GIORGIDENITALIA [id number] [place] [address] [place] Erythrocyte distribution width (RBC) [Ratio] 12.2 % Normal 11.5-15.0 [facility] [place] Comment on above: Order Comment: Speci men Type: BLOOD SPECIMENOrdering Facility: [facility] Address: [address] [place] [address] Performed By: #### 5 7021-8 ####[facility] CLINICLIA [id number] [place] [address] [place] Hematocrit (Bld) [Volume fraction] 41.7 % Normal 39.0-51.0 [facility] Comment on above: Order Comment: Speci men Type: BLOOD SPECIMENOrdering Facility: [facility] Address: [address] [place] [address] Performed By: #### 5 7021-8 ####[facility] ER [id number] [place] [address] [place] Hemoglobin (Bld) [Mass/Vol] 14.1 g/dL Normal 13.0-17.0 [facility] Comment on above: Order Comment: Speci men Type: BLOOD SPECIMENOrdering Facility: [facility] Address: [address] [place] [address] Performed By: #### 5 7021-8 ####[facility] ER [id number] [place] [address] [place] Immature granulocytes (Bld) [#/Vol] 10*3/uL Normal <0.10 [facility] Comment on above: Order Comment: Speci men Type: BLOOD SPECIMENOrdering Facility: [facility] Address: [address] [place] [address] Performed By: #### 5 7021-8 ####[facility] ER [id number] [place] [address] [place] Immature granulocytes/100 WBC (Bld) 0.4 % Normal [facility] Comment on above: Order Comment: Speci men Type: BLOOD SPECIMENOrdering Facility: [facility] Address: [address] [place] [address] Performed By: #### 5 7021-8 ####[facility]PITALNCLIA [id number] [place] [address] [place] Lymphocytes (Bld) [#/Vol] 1.14 10*3/uL Normal 1.00-4.00 [facility] [place] Comment on above: Order Comment: Speci men Type: BLOOD SPECIMENOrdering Facility: [facility] Address: [address] [place] [address] Performed By: #### 5 7021-8 ####[facility]PITALNCMO[facility] [id number] [place] [address] [place] Lymphocytes/100 WBC (Bld) 21.3 % Normal [facility] [place] Comment on above: Order Comment: Speci men Type: BLOOD SPECIMENOrdering Facility: [facility] Address: [address] [place] [address] Performed By: #### 5 7021-8 ####[facility] HOSPITALNCLI [id number] [place] [address] [place] MCH (RBC) [Entitic mass] 29.6 pg Normal 26.0-34.0 [facility] Comment on above: Order Comment: Speci men Type: BLOOD SPECIMENOrdering Facility: [facility] Address: [address] [place] [address] Performed By: #### 5 7021-8 ####[facility] HOSPITALNCLI [id number] [place] [address] [place] MCHC (RBC) [Mass/Vol] 33.8 g/dL Normal 30.5-36.0 [facility] Comment on above: Order Comment: Speci men Type: BLOOD SPECIMENOrdering Facility: [facility] Address: [address] [place] [address] Performed By: #### 5 7021-8 ####[facility]ITALNCLI [id number] [place] [address] [place] MCV (RBC) [Entitic vol] 87.6 fL Normal 80.0-100.0 [facility] Comment on above: Order Comment: Speci men Type: BLOOD SPECIMENOrdering Facility: [facility] Address: [address] [place] [address] Performed By: #### 5 7021-8 ####[facility] MILLTOWNCLIA [id number] [place] [address] [place] Monocytes (Bld) [#/Vol] 0.45 10*3/uL Normal <0.87 [facility] Comment on above: Order Comment: Speci men Type: BLOOD SPECIMENOrdering Facility: [facility] Address: [address] [place] [address] Performed By: #### 5 7021-8 ####[facility] MILLWNCLIA [id number] [place] [address] [place] Monocytes/100 WBC (Bld) 8.4 % Normal [facility] Comment on above: Order Comment: Speci men Type: BLOOD SPECIMENOrdering Facility: [facility] Address: [address] [place] [address] Performed By: #### 5 7021-8 ####[facility] KIESHAWNCLIA [id number] [place] [address] [place] Neutrophils (Bld) [#/Vol] 3.36 10*3/uL Normal 1.45-7.50 [facility] Comment on above: Order Comment: Speci men Type: BLOOD SPECIMENOrdering Facility: [facility] Address: [address] [place] [address] Performed By: #### 5 7021-8 ####[facility] MILLTOWNCLIA [id number] [place] [address] [place] Neutrophils/100 WBC (Bld) 63.0 % Normal [facility] Comment on above: Order Comment: Speci men Type: BLOOD SPECIMENOrdering Facility: [facility] Address: [address] [place] [address] Performed By: #### 5 7021-8 ####[facility] [id number] [place] [address] [place] Nucleated RBC (Bld) [#/Vol] 10*3/uL Normal <0.01 [facility] Comment on above: Order Comment: Speci men Type: BLOOD SPECIMENOrdering Facility: [facility] Address: [address] [place] [address] Performed By: #### 5 7021-8 ####[facility] ER [id number] [place] [address] [place] Nucleated RBC/100 WBC (Bld) [Ratio] 0.0 /100 WBC Normal [facility] Comment on above: Order Comment: Speci men Type: BLOOD SPECIMENOrdering Facility: [facility] Address: [address] [place] [address] Performed By: #### 5 7021-8 ####[facility] ER [id number] [place] [address] [place] Platelet mean volume (Bld) [Entitic vol] 8.4 fL Low 9.0-12.7 [facility] Comment on above: Order Comment: Speci men Type: BLOOD SPECIMENOrdering Facility: [facility] Address: [address] [place] [address] Performed By: #### 5 7021-8 ####[facility] ER [id number] [place] [address] [place] Platelets (Bld) [#/Vol] 209 10*3/uL Normal 150-400 [facility] Comment on above: Order Comment: Speci men Type: BLOOD SPECIMENOrdering Facility: [facility] Address: [address] [place] [address] Performed By: #### 5 7021-8 ####[facility] CLINICLIA [id number] [place] [address] [place] RBC (Bld) [#/Vol] 4.76 10*6/uL Normal 4.20-6.00 [facility] Comment on above: Order Comment: Speci men Type: BLOOD SPECIMENOrdering Facility: [facility] Address: [address] [place] [address] Performed By: #### 5 7021-8 ####[facility]PITALWNCLIA [id number] [place] [address] [place] WBC (Bld) [#/Vol] 5.34 10*3/uL Normal 3.70-11.00 [facility] Comment on above: Order Comment: Speci men Type: BLOOD SPECIMENOrdering Facility: [facility] Address: [address] [place] [address] Performed By: #### 5 7021-8 ####[facility]PITALNCLIA [id number] [place] [address] [place] Comprehensive metabolic 2000 panelon 04-19-2024 Albumin [Mass/Vol] 4.5 g/dL Normal 3.9-4.9 [facility] Comment on above: Order Comment: Speci men Type: BLOOD SPECIMENOrdering Facility: [facility] Address: [address] [place] [address] Performed By: #### 2 4323-8 ####[facility]OSPITALNCLIA [id number] [place] [address] [place] ALP [Catalytic activity/Vol] 99 U/L Normal 38-113 [facility] Comment on above: Order Comment: Speci men Type: BLOOD SPECIMENOrdering Facility: [facility] Address: [address] [place] [address] Performed By: #### 2 4323-8 ####[facility]PITALNCLIA [id number] [place] [address] [place] ALT [Catalytic activity/Vol] 43 U/L Normal 10-54 [facility] Comment on above: Order Comment: Speci men Type: BLOOD SPECIMENOrdering Facility: [facility] Address: [address] [place] [address] Performed By: #### 2 4323-8 ####[facility] MILLTOWNCLIA [id number] [place] [address] [place] Anion gap [Moles/Vol] 10 mmol/L Normal 8-15 [facility] Comment on above: Order Comment: Speci men Type: BLOOD SPECIMENOrdering Facility: [facility] Address: [address] [place] [address] Performed By: #### 2 4323-8 ####[facility] MILLWNCLIA [id number] [place] [address] [place] AST [Catalytic activity/Vol] 26 U/L Normal 14-40 [facility] Comment on above: Order Comment: Speci men Type: BLOOD SPECIMENOrdering Facility: [facility] Address: [address] [place] [address] Performed By: #### 2 4323-8 ####[facility] MILLWNCLIA [id number] [place] [address] [place] Bilirubin [Mass/Vol] 0.4 mg/dL Normal 0.2-1.3 [facility] Comment on above: Order Comment: Speci men Type: BLOOD SPECIMENOrdering Facility: [facility] Address: [address] [place] [address] Performed By: #### 2 4323-8 ####[facility] MILLTOWNCLIA [id number] [place] [address] [place] Calcium [Mass/Vol] 9.3 mg/dL Normal 8.5-10.2 [facility] Comment on above: Order Comment: Speci men Type: BLOOD SPECIMENOrdering Facility: [facility] Address: [address] [place] [address] Performed By: #### 2 4323-8 ####[facility] CENTERWNCLIA [id number] [place] [address] [place] Chloride [Moles/Vol] 107 mmol/L Normal 98-107 [facility] Comment on above: Order Comment: Speci men Type: BLOOD SPECIMENOrdering Facility: [facility] Address: [address] [place] [address] Performed By: #### 2 4323-8 ####[facility] CLINICLIA [id number] [place] [address] [place] CO2 [Moles/Vol] 24 mmol/L Normal 22-30 [facility] Comment on above: Order Comment: Speci men Type: BLOOD SPECIMENOrdering Facility: [facility] Address: [address] [place] [address] Performed By: #### 2 4323-8 ####[facility] ER [id number] [place] [address] [place] Creatinine [Mass/Vol] 0.83 mg/dL Normal 0.73-1.22 [facility] Comment on above: Order Comment: Speci men Type: BLOOD SPECIMENOrdering Facility: [facility] Address: [address] [place] [address] Performed By: #### 2 4323-8 ####[facility] [id number] [address] OF [facility] Creatinine and Glomerular filtration rate.predicted panel (S/P/Bld) 98 mL/min/1.73m??? Normal >=60 [facility] Comment on above: Order Comment: Speci men Type: BLOOD SPECIMENOrdering Facility: [facility] Address: [address] [place] [address] Result Comment: Kisha mated Glomerular Filtration Rate [...] actual GFR. Performed By: #### 2 4323-8 ####[facility]ITALNCLIA [id number] [place] [address] [place] Glucose [Mass/Vol] 95 mg/dL Normal 74-99 [facility] Comment on above: Order Comment: Speci men Type: BLOOD SPECIMENOrdering Facility: [facility] Address: [address] [place], [place] [address] Result Comment: The [place] Diabetes Association (ADA) provides guidance for cutoff [...] Standards of Medical Care in Diabetes 2016, [place] [employer]. Diabetes Care. 2016.39(Suppl 1). Performed By: #### 2 4323-8 ####[facility]ITALNCLIA [id number] [place] [address] [place] Potassium [Moles/Vol] 4.1 mmol/L Normal 3.7-5.1 [facility] Comment on above: Order Comment: Speci men Type: BLOOD SPECIMENOrdering Facility: [facility] Address: [address] [place] [address] Performed By: #### 2 4323-8 ####[facility] CLINICLIA [id number] [place] [address] [place] Protein [Mass/Vol] 6.8 g/dL Normal 6.3-8.0 [facility] Comment on above: Order Comment: Speci men Type: BLOOD SPECIMENOrdering Facility: [facility] Address: [address] [place] [address] Performed By: #### 2 4323-8 ####[facility] KIESHAHENRY [id number] [place] [address] [place] Sodium [Moles/Vol] 141 mmol/L Normal 136-144 [facility] Comment on above: Order Comment: Speci men Type: BLOOD SPECIMENOrdering Facility: [facility] Address: [address] [place] [address] Performed By: #### 2 4323-8 ####[facility]PITALDENITAMOAB [facility] [id number] [place] [address] [place] Urea nitrogen [Mass/Vol] 12 mg/dL Normal 9-24 [facility] Comment on above: Order Comment: Speci men Type: BLOOD SPECIMENOrdering Facility: [facility] Address: [address] [place] [address] Performed By: #### 2 4323-8 ####[facility]PITALNCLIA [id number] [place] [address] [place] Cortis SerPl-mCncon 04-19-20 24 Cortisol [Mass/Vol] 5.1 ug/dL Normal 4.8-19.5 [facility] Comment on above: Order Comment: Speci men Type: BLOOD SPECIMENOrdering Facility: [facility] Address: [address] [place] [address] Result Comment: Prov ided reference range is from 6-10 AM sample collection time.Cortisol Reference Range: 6-10 AM = 4.8-19.5 ug/dL, 4-8 PM = 2.5-11.9 ug/dL Performed By: #### 3 016-3, 2143-6 ####[facility]CL[facility] [id number] [facility] [id number] [address] [place] TSH SerPl-aCncon 04-19-2024 TSH Qn 1.400 m[IU]/L Normal 0.270-4.200 [facility] Comment on above: Order Comment: Speci men Type: BLOOD SPECIMENOrdering Facility: [facility] Address: [address] [place] [address] Performed By: #### 3 016-3, 2143-6 ####[facility] LABCLIA [id number] [facility] [place] [address] [place] CBC W Auto Differential pane l (Bld)on 04-02-2024 Basophils (Bld) [#/Vol] 0.05 10*3/uL Normal <0.11 [facility] Comment on above: Order Comment: Speci men Type: BLOOD SPECIMENOrdering Facility: [facility] Address: [address] [place] [address] Performed By: #### 5 7021-8 ####[facility]PITALNCMOAB [facility] [id number] [place] [address] [place] Basophils/100 WBC (Bld) 0.9 % Normal [facility] Comment on above: Order Comment: Speci men Type: BLOOD SPECIMENOrdering Facility: [facility] Address: [address] [place] [address] Performed By: #### 5 7021-8 ####[facility] ER [id number] [place] [address] [place] Differential cell count method Nom (Bld) Auto Normal [facility] Comment on above: Order Comment: Speci men Type: BLOOD SPECIMENOrdering Facility: [facility] Address: [address] [place] [address] Performed By: #### 5 7021-8 ####[facility] HOSPITALNCA [id number] [place] [address] [place] Eosinophils (Bld) [#/Vol] 0.36 10*3/uL Normal <0.46 [facility] Comment on above: Order Comment: Speci men Type: BLOOD SPECIMENOrdering Facility: [facility] Address: [address] [place] [address] Performed By: #### 5 7021-8 ####[facility] KIESHAHENRY [id number] [place] [address] [place] Eosinophils/100 WBC (Bld) 6.3 % Normal [facility] Comment on above: Order Comment: Speci men Type: BLOOD SPECIMENOrdering Facility: [facility] Address: [address] [place] [address] Performed By: #### 5 7021-8 ####[facility] HOSPITALNCRAJEEV [id number] [place] [address] [place] Erythrocyte distribution width (RBC) [Ratio] 12.4 % Normal 11.5-15.0 [facility] Comment on above: Order Comment: Speci men Type: BLOOD SPECIMENOrdering Facility: [facility] Address: [address] [place] [address] Performed By: #### 5 7021-8 ####[facility] HOSPITALNCYOHANAA [id number] [place] [address] [place] Hematocrit (Bld) [Volume fraction] 41.8 % Normal 39.0-51.0 [facility] Comment on above: Order Comment: Speci men Type: BLOOD SPECIMENOrdering Facility: [facility] Address: [address] [place] [address] Performed By: #### 5 7021-8 ####[facility] HOSPITALNCLIA [id number] [place] [address] [place] Hemoglobin (Bld) [Mass/Vol] 14.0 g/dL Normal 13.0-17.0 [facility] Comment on above: Order Comment: Speci men Type: BLOOD SPECIMENOrdering Facility: [facility] Address: [address] [place] [address] Performed By: #### 5 7021-8 ####[facility] HOSPITALWNCLIA [id number] [place] [address] [place] Immature granulocytes (Bld) [#/Vol] 10*3/uL Normal <0.10 [facility] Comment on above: Order Comment: Speci men Type: BLOOD SPECIMENOrdering Facility: [facility] Address: [address] [place] [address] Performed By: #### 5 7021-8 ####[facility] CLINICLIA [id number] [place] [address] [place] Immature granulocytes/100 WBC (Bld) 0.4 % Normal [facility] Comment on above: Order Comment: Speci men Type: BLOOD SPECIMENOrdering Facility: [facility] Address: [address] [place] [address] Performed By: #### 5 7021-8 ####[facility]ENTERA [id number] [place] [address] [place] Lymphocytes (Bld) [#/Vol] 0.99 10*3/uL Low 1.00-4.00 [facility] Comment on above: Order Comment: Speci men Type: BLOOD SPECIMENOrdering Facility: [facility] Address: [address] [place] [address] Performed By: #### 5 7021-8 ####[facility]ENTERA [id number] [place] [address] [place] Lymphocytes/100 WBC (Bld) 17.5 % Normal [facility] Comment on above: Order Comment: Speci men Type: BLOOD SPECIMENOrdering Facility: [facility] Address: [address] [place] [address] Performed By: #### 5 7021-8 ####[facility] ER [id number] [place] [address] [place] MCH (RBC) [Entitic mass] 30.2 pg Normal 26.0-34.0 [facility] Comment on above: Order Comment: Speci men Type: BLOOD SPECIMENOrdering Facility: [facility] Address: [address] [place] [address] Performed By: #### 5 7021-8 ####[facility]PITALNCMOAB [facility] [id number] [place] [address] [place] MCHC (RBC) [Mass/Vol] 33.5 g/dL Normal 30.5-36.0 [facility] Comment on above: Order Comment: Speci men Type: BLOOD SPECIMENOrdering Facility: [facility] Address: [address] [place], [place] [address] Performed By: #### 5 7021-8 ####[facility] ER [id number] [place] [address] [place] MCV (RBC) [Entitic vol] 90.3 fL Normal 80.0-100.0 [facility] Comment on above: Order Comment: Speci men Type: BLOOD SPECIMENOrdering Facility: [facility] Address: [address] [place] [address] Performed By: #### 5 7021-8 ####[facility] ER [id number] [place] [address] [place] Monocytes (Bld) [#/Vol] 0.61 10*3/uL Normal <0.87 [facility] Comment on above: Order Comment: Speci men Type: BLOOD SPECIMENOrdering Facility: [facility] Address: [address] [place] [address] Performed By: #### 5 7021-8 ####[facility]OSPITALNCMOAB [facility] [id number] [address] [place] Monocytes/100 WBC (Bld) 10.8 % Normal [facility] Comment on above: Order Comment: Speci men Type: BLOOD SPECIMENOrdering Facility: [facility] Address: [address] [place] [address] Performed By: #### 5 7021-8 ####[facility] MILLTOWNCLIA [id number] [place] [address] [place] Neutrophils (Bld) [#/Vol] 3.64 10*3/uL Normal 1.45-7.50 [facility] Comment on above: Order Comment: Speci men Type: BLOOD SPECIMENOrdering Facility: [facility] Address: [address] [place] [address] Performed By: #### 5 7021-8 ####[facility] MILLTOWDENITALIA [id number] [place] [address] [place] Neutrophils/100 WBC (Bld) 64.1 % Normal [facility] Comment on above: Order Comment: Speci men Type: BLOOD SPECIMENOrdering Facility: [facility] Address: [address] [place] [address] Performed By: #### 5 7021-8 ####[facility] YENIFERWNCLIA [id number] [place] [address] [place] Nucleated RBC (Bld) [#/Vol] 10*3/uL Normal <0.01 [facility] Comment on above: Order Comment: Speci men Type: BLOOD SPECIMENOrdering Facility: [facility] Address: [address] [place] [address] Performed By: #### 5 7021-8 ####[facility] MILLTOWNCLIA [id number] [place] [address] [place] Nucleated RBC/100 WBC (Bld) [Ratio] 0.0 /100 WBC Normal [facility] Comment on above: Order Comment: Speci men Type: BLOOD SPECIMENOrdering Facility: [facility] Address: [address] [place] [address] Performed By: #### 5 7021-8 ####[facility] KIESHATOWNCLIA [id number] [place] [address] [place] Platelet mean volume (Bld) [Entitic vol] 8.5 fL Low 9.0-12.7 [facility] Comment on above: Order Comment: Speci men Type: BLOOD SPECIMENOrdering Facility: [facility] Address: [address] [place] [address] Performed By: #### 5 7021-8 ####[facility] KIESHAWHITE HEATHDENITALIA [id number] [place] [address] [place] Platelets (Bld) [#/Vol] 174 10*3/uL Normal 150-400 [facility] Comment on above: Order Comment: Speci men Type: BLOOD SPECIMENOrdering Facility: [facility] Address: [address] [place] [address] Performed By: #### 5 7021-8 ####[facility] HOSPITALJUANA [id number] [place] [address] [place] RBC (Bld) [#/Vol] 4.63 10*6/uL Normal 4.20-6.00 [facility] Comment on above: Order Comment: Speci men Type: BLOOD SPECIMENOrdering Facility: [facility] Address: [address] [place] [address] Performed By: #### 5 7021-8 ####[facility] HOSPITALDENITALIA [id number] [place] [address] [place] WBC (Bld) [#/Vol] 5.67 10*3/uL Normal 3.70-11.00 [facility] Comment on above: Order Comment: Speci men Type: BLOOD SPECIMENOrdering Facility: [facility] Address: [address] [place] [address] Performed By: #### 5 7021-8 ####[facility] HOSPITALNCLIA [id number] [address] [place] CNOVSPon 04-02-2024 CNOVSP Normal [facility] Comprehensive metabolic 2000 panelon 04-02-2024 Albumin [Mass/Vol] 4.6 g/dL Normal 3.9-4.9 [facility] Comment on above: Order Comment: Speci men Type: BLOOD SPECIMENOrdering Facility: [facility] Address: [address] [place] [address] Performed By: #### 2 4323-8 ####[facility] MILLTOWNCLIA [id number] [place] [address] [place] ALP [Catalytic activity/Vol] 104 U/L Normal 38-113 [facility] Comment on above: Order Comment: Speci men Type: BLOOD SPECIMENOrdering Facility: [facility] Address: [address] [place] [address] Performed By: #### 2 4323-8 ####[facility] MILLTOWNCLIA [id number] [place] [address] [place] ALT [Catalytic activity/Vol] 51 U/L Normal 10-54 [facility] Comment on above: Order Comment: Speci men Type: BLOOD SPECIMENOrdering Facility: [facility] Address: [address] [place] [address] Performed By: #### 2 4323-8 ####[facility] HOSPITALWNCLIA [id number] [place] [address] [place] Anion gap [Moles/Vol] 7 mmol/L Low 8-15 [facility] Comment on above: Order Comment: Speci men Type: BLOOD SPECIMENOrdering Facility: [facility] Address: [address] [place] [address] Performed By: #### 2 4323-8 ####[facility] MILLTOWNCLIA [id number] [place] [address] [place] AST [Catalytic activity/Vol] 35 U/L Normal 14-40 [facility] Comment on above: Order Comment: Speci men Type: BLOOD SPECIMENOrdering Facility: [facility] Address: [address] [place] [address] Performed By: #### 2 4323-8 ####[facility] JOSEPHYOHANAA [id number] [place] [address] [place] Bilirubin [Mass/Vol] 0.3 mg/dL Normal 0.2-1.3 [facility] Comment on above: Order Comment: Speci men Type: BLOOD SPECIMENOrdering Facility: [facility] Address: [address] [place] [address] Performed By: #### 2 4323-8 ####[facility] HOSPITALGERALDOA [id number] [place] [address] [place] Calcium [Mass/Vol] 9.7 mg/dL Normal 8.5-10.2 [facility] Comment on above: Order Comment: Speci men Type: BLOOD SPECIMENOrdering Facility: [facility] Address: [address] [place] [address] Performed By: #### 2 4323-8 ####[facility] KIESHAWHITE HEATHJUANA [id number] [place] [address] [place] Chloride [Moles/Vol] 105 mmol/L Normal 98-107 [facility] Comment on above: Order Comment: Speci men Type: BLOOD SPECIMENOrdering Facility: [facility] Address: [address] [place] [address] Performed By: #### 2 4323-8 ####[facility]ITALNCLIA [id number] [place] [address] [place] CO2 [Moles/Vol] 30 mmol/L Normal 22-30 [facility] Comment on above: Order Comment: Speci men Type: BLOOD SPECIMENOrdering Facility: [facility] Address: [address] [place] [address] Performed By: #### 2 4323-8 ####[facility]PITALNCMOAB [facility] [id number] [place] [address] [place] Creatinine [Mass/Vol] 0.81 mg/dL Normal 0.73-1.22 [facility] Comment on above: Order Comment: Speci men Type: BLOOD SPECIMENOrdering Facility: [facility] Address: [address] [place] [address] Performed By: #### 2 4323-8 ####[facility]ICLI [id number] [place] [address] [place] Creatinine and Glomerular filtration rate.predicted panel (S/P/Bld) 99 mL/min/1.73m??? Normal >=60 [facility] Comment on above: Order Comment: [facility] Type: BLOOD SPECIMENOrdering Facility: [facility] Address: [address] [place] [address] Result Comment: Kisha mated Glomerular Filtration Rate [...] Performed By: #### 2 4323-8 ####[facility] ER [id number] [place] [address] [place] Glucose [Mass/Vol] 91 mg/dL Normal 74-99 [facility] Comment on above: Order Comment: Speci men Type: BLOOD SPECIMENOrdering Facility: [facility] Address: [address] [place] [address] Result Comment: The [place] Diabetes Association (ADA) provides guidance for cutoff [...] Standards of Medical Care in Diabetes 2016, [place] [employer]. Diabetes Care. 2016.39(Suppl 1). Performed By: #### 2 4323-8 ####[facility] MILLWDENITALIA [id number] [place] [address] [place] Potassium [Moles/Vol] 4.1 mmol/L Normal 3.7-5.1 [facility] Comment on above: Order Comment: Speci men Type: BLOOD SPECIMENOrdering Facility: [facility] Address: [address] [place] [address] Performed By: #### 2 4323-8 ####[facility] CLINICLIMaricruz [id number] [place] [address] [place] Protein [Mass/Vol] 6.8 g/dL Normal 6.3-8.0 [facility] Comment on above: Order Comment: Fatoui men Type: BLOOD SPECIMENOrdering Facility: [facility] Address: [address] [place] [address] Performed By: #### 2 4323-8 ####[facility] CL[facility]ICLIA [id number] [place] [address] [place] Sodium [Moles/Vol] 142 mmol/L Normal 136-144 [facility] Comment on above: Order Comment: Speci men Type: BLOOD SPECIMENOrdering Facility: [facility] Address: [address] [place] [address] Performed By: #### 2 4323-8 ####[facility] CLINICLIA [id number] [place] [address] [place] Urea nitrogen [Mass/Vol] 12 mg/dL Normal 9-24 [facility] Comment on above: Order Comment: Speci men Type: BLOOD SPECIMENOrdering Facility: [facility] Address: [address] [place] [address] Performed By: #### 2 4323-8 ####[facility] RIVERA [id number] [place] [address] [place] Cortis SerPl-mCncon 04-02-20 Cortisol [Mass/Vol] 5.9 ug/dL Normal 4.8-19.5 [facility] Comment on above: Order Comment: Speci men Type: BLOOD SPECIMENOrdering Facility: [facility] Address: [address] [place] [address] Result Comment: Prov ided reference range is from 6-10 AM sample collection time.Cortisol Reference Range: 6-10 AM = 4.8-19.5 ug/dL, 4-8 PM = 2.5-11.9 ug/dL Performed By: #### 3 016-3, 2143-02 ####[facility] LABCLIA [id number] [place] [address] [place] TSH SerPl-aCncon 04-02-2024 TSH Qn 1.490 m[IU]/L Normal 0.270-4.200 [facility] Comment on above: Order Comment: Speci men Type: BLOOD SPECIMENOrdering Facility: [facility] Address: [address] [place] [address] Performed By: #### 3 016-3, 2143-02 ####[facility] LABCL[facility] [id number] [place] [address] [place] CNPNon 03-31-2024 CNPN Normal [facility] CNPNon 03-30-2024 CNPN Normal [facility] CNPNon 03-23-2024 CNPN Normal [facility] CBC W Auto Differential pane l (Bld)on 03-22-2024 Basophils (Bld) [#/Vol] 0.06 10*3/uL Normal <0.11 [facility] Comment on above: Order Comment: Speci men Type: BLOOD SPECIMENOrdering Facility: [facility] Address: [address] [place] [address] Performed By: #### 5 7021-8 ####[facility] MILLTOWNCLIA [id number] [place] [address] [place] Basophils/100 WBC (Bld) 1.6 % Normal [facility] Comment on above: Order Comment: Speci men Type: BLOOD SPECIMENOrdering Facility: [facility] Address: [address] [place] [address] Performed By: #### 5 7021-8 ####[facility] HOSPITALWNCLIA [id number] [place] [address] [place] Differential cell count method Nom (Bld) Auto Normal [facility] Comment on above: Order Comment: Speci men Type: BLOOD SPECIMENOrdering Facility: [facility] Address: [address] [place] [address] Performed By: #### 5 7021-8 ####[facility]OSPITALWNCLIA [id number] [place] [address] [place] Eosinophils (Bld) [#/Vol] 0.31 10*3/uL Normal <0.46 [facility] Comment on above: Order Comment: Speci men Type: BLOOD SPECIMENOrdering Facility: [facility] Address: [address] [place] [address] Performed By: #### 5 7021-8 ####[facility] MILLTOWNCLIA [id number] [place] [address] [place] Eosinophils/100 WBC (Bld) 8.0 % Normal [facility] Comment on above: Order Comment: Speci men Type: BLOOD SPECIMENOrdering Facility: [facility] Address: [address] [place] [address] Performed By: #### 5 7021-8 ####[facility] [id number] [place] [address] [place] Erythrocyte distribution width (RBC) [Ratio] 12.7 % Normal 11.5-15.0 [facility] Comment on above: Order Comment: Speci men Type: BLOOD SPECIMENOrdering Facility: [facility] Address: [address] [place] [address] Performed By: #### 5 7021-8 ####[facility] ER [id number] [place] [address] [place] Hematocrit (Bld) [Volume fraction] 39.9 % Normal 39.0-51.0 [facility] [place] Comment on above: Order Comment: Speci men Type: BLOOD SPECIMENOrdering Facility: [facility] Address: [address] [place] [address] Performed By: #### 5 7021-8 ####[facility] [id number] [place] [address] [place] Hemoglobin (Bld) [Mass/Vol] 13.4 g/dL Normal 13.0-17.0 [facility] [place] Comment on above: Order Comment: Speci men Type: BLOOD SPECIMENOrdering Facility: [facility] Address: [address] [place] [address] Performed By: #### 5 7021-8 ####[facility] [id number] [place] [address] [place] Immature granulocytes (Bld) [#/Vol] 10*3/uL Normal <0.10 [facility] [place] Comment on above: Order Comment: Speci men Type: BLOOD SPECIMENOrdering Facility: [facility] Address: [address] [place] [address] Performed By: #### 5 7021-8 ####[facility] [id number] [place] [address] [place] Immature granulocytes/100 WBC (Bld) 0.3 % Normal [facility] [place] Comment on above: Order Comment: Speci men Type: BLOOD SPECIMENOrdering Facility: [facility] Address: [address] [place] [address] Performed By: #### 5 7021-8 ####[facility] [id number] [place] [address] [place] Lymphocytes (Bld) [#/Vol] 1.16 10*3/uL Normal 1.00-4.00 [facility] [place] Comment on above: Order Comment: Speci men Type: BLOOD SPECIMENOrdering Facility: [facility] Address: [address] [place] [address] Performed By: #### 5 7021-8 ####[facility] [id number] [place] [address] [place] Lymphocytes/100 WBC (Bld) 30.0 % Normal [facility] [place] Comment on above: Order Comment: Speci men Type: BLOOD SPECIMENOrdering Facility: [facility] Address: [address] [place] [address] Performed By: #### 5 7021-8 ####[facility] [id number] [place] [address] [place] MCH (RBC) [Entitic mass] 30.8 pg Normal 26.0-34.0 [facility] [place] Comment on above: Order Comment: Speci men Type: BLOOD SPECIMENOrdering Facility: [facility] Address: [address] [place] [address] Performed By: #### 5 7021-8 ####[facility] [id number] [place] [address] [place] MCHC (RBC) [Mass/Vol] 33.6 g/dL Normal 30.5-36.0 [facility] [place] Comment on above: Order Comment: Speci men Type: BLOOD SPECIMENOrdering Facility: [facility] Address: [address] [place] [address] Performed By: #### 5 7021-8 ####[facility] KIESHAWHITE HEATHNCYOHANAA [id number] [place] [address] [place] [facility] MCV (RBC) [Entitic vol] 91.7 fL Normal 80.0-100.0 [facility] [place] Comment on above: Order Comment: Speci men Type: BLOOD SPECIMENOrdering Facility: [facility] Address: [address] [place] [address] Performed By: #### 5 7021-8 ####[facility] [id number] [place] [address] [place] Monocytes (Bld) [#/Vol] 0.44 10*3/uL Normal <0.87 [facility] [place] Comment on above: Order Comment: Speci men Type: BLOOD SPECIMENOrdering Facility: [facility] Address: [address] [place] [address] Performed By: #### 5 7021-8 ####[facility]PITALNCA [id number] [place] [address] [place] Monocytes/100 WBC (Bld) 11.4 % Normal [facility] [place] Comment on above: Order Comment: Speci men Type: BLOOD SPECIMENOrdering Facility: [facility] Address: [address] [place] [address] Performed By: #### 5 7021-8 ####[facility]ITALNCLIA [id number] [place] [address] [place] Neutrophils (Bld) [#/Vol] 1.89 10*3/uL Normal 1.45-7.50 [facility] [place] Comment on above: Order Comment: Speci men Type: BLOOD SPECIMENOrdering Facility: [facility] Address: [address] [place] [address] Performed By: #### 5 7021-8 ####[facility]ICL[facility] [id number] [place] [address] [place] Neutrophils/100 WBC (Bld) 48.7 % Normal [facility] [place] Comment on above: Order Comment: Speci men Type: BLOOD SPECIMENOrdering Facility: [facility] Address: [address] [place] [address] Performed By: #### 5 7021-8 ####[facility] KIESHAWHITE HEATHLEIGHTON [id number] [place] [address] [place] Nucleated RBC (Bld) [#/Vol] 10*3/uL Normal <0.01 [facility] [place] Comment on above: Order Comment: Speci men Type: BLOOD SPECIMENOrdering Facility: [facility] Address: [address] [place] [address] Performed By: #### 5 7021-8 ####[facility] [id number] [place] [address] [place] Nucleated RBC/100 WBC (Bld) [Ratio] 0.0 /100 WBC Normal [facility] [place] Comment on above: Order Comment: Speci men Type: BLOOD SPECIMENOrdering Facility: [facility] Address: [address] [place] [address] Performed By: #### 5 7021-8 ####[facility]OSPITALLEIGHTON [id number] [place] [address] [place] Platelet mean volume (Bld) [Entitic vol] 8.8 fL Low 9.0-12.7 [facility] [place] Comment on above: Order Comment: Speci men Type: BLOOD SPECIMENOrdering Facility: [facility] Address: [address] [place] [address] Performed By: #### 5 7021-8 ####[facility]ITALNCLIA [id number] [place] [address] [place] Platelets (Bld) [#/Vol] 183 10*3/uL Normal 150-400 [facility] [place] Comment on above: Order Comment: Speci men Type: BLOOD SPECIMENOrdering Facility: [facility] Address: [address] [place] [address] Performed By: #### 5 7021-8 ####[facility]ITALWNCLIA [id number] [place] [address] [place] RBC (Bld) [#/Vol] 4.35 10*6/uL Normal 4.20-6.00 [facility] Comment on above: Order Comment: Speci men Type: BLOOD SPECIMENOrdering Facility: [facility] Address: [address] [place] [address] Performed By: #### 5 7021-8 ####[facility]ITALN[facility] [id number] [place] [address] [place] WBC (Bld) [#/Vol] 3.87 10*3/uL Normal 3.70-11.00 [facility] Comment on above: Order Comment: Speci men Type: BLOOD SPECIMENOrdering Facility: [facility] Address: [address] [place] [address] Performed By: #### 5 7021-8 ####[facility]ITALNCLIA [id number] [place] [address] [place] Comprehensive metabolic 2000 panelon 03-22-2024 Albumin [Mass/Vol] 4.5 g/dL Normal 3.9-4.9 [facility] Comment on above: Order Comment: Speci men Type: BLOOD SPECIMENOrdering Facility: [facility] Address: [address] [place] [address] Performed By: #### 2 4323-8 ####[facility]ITALNCLIA [id number] [place] [address] [place] ALP [Catalytic activity/Vol] 94 U/L Normal 38-113 [facility] [place] Comment on above: Order Comment: Speci men Type: BLOOD SPECIMENOrdering Facility: [facility] Address: [address] [place] [address] Performed By: #### 2 4323-8 ####[facility] KIESHATOWNCLIA [id number] [place] [address] [place] ALT [Catalytic activity/Vol] 34 U/L Normal 10-54 [facility] [place] Comment on above: Order Comment: Speci men Type: BLOOD SPECIMENOrdering Facility: [facility] Address: [address] [place] [address] Performed By: #### 2 4323-8 ####[facility] MILLWNCLIA [id number] [place] [address] [place] Anion gap [Moles/Vol] 8 mmol/L Normal 8-15 [facility] [place] Comment on above: Order Comment: Speci men Type: BLOOD SPECIMENOrdering Facility: [facility] Address: [address] [place] [address] Performed By: #### 2 4323-8 ####[facility]ITALWNCLIA [id number] [place] [address] [place] AST [Catalytic activity/Vol] 24 U/L Normal 14-40 [facility] [place] Comment on above: Order Comment: Speci men Type: BLOOD SPECIMENOrdering Facility: [facility] Address: [address] [place] [address] Performed By: #### 2 4323-8 ####[facility] MILLTOWNCLIA [id number] [place] [address] [place] Bilirubin [Mass/Vol] 0.2 mg/dL Normal 0.2-1.3 [facility] Comment on above: Order Comment: Speci men Type: BLOOD SPECIMENOrdering Facility: [facility] Address: [address] [place] [address] Performed By: #### 2 4323-8 ####[facility]ITALNCLIA [id number] [place] [address] [place] Calcium [Mass/Vol] 9.6 mg/dL Normal 8.5-10.2 [facility] Comment on above: Order Comment: Speci men Type: BLOOD SPECIMENOrdering Facility: [facility] Address: [address] [place] [address] Performed By: #### 2 4323-8 ####[facility] MILLTOWNCLIA [id number] [place] [address] [place] Chloride [Moles/Vol] 105 mmol/L Normal 98-107 [facility] Comment on above: Order Comment: Speci men Type: BLOOD SPECIMENOrdering Facility: [facility] Address: [address] [place] [address] Performed By: #### 2 4323-8 ####[facility] CLINICLIA [id number] [place] [address] [place] CO2 [Moles/Vol] 27 mmol/L Normal 22-30 [facility] [place] Comment on above: Order Comment: Speci men Type: BLOOD SPECIMENOrdering Facility: [facility] Address: [address] [place] [address] Performed By: #### 2 4323-8 ####[facility]ITALNCLIA [id number] [place] [address] [place] Creatinine [Mass/Vol] 0.87 mg/dL Normal 0.73-1.22 [facility] [place] Comment on above: Order Comment: Speci men Type: BLOOD SPECIMENOrdering Facility: [facility] Address: [address] [place] [address] Performed By: #### 2 4323-8 ####[facility]ITALNCLIA [id number] [place] [address] [place] Creatinine and Glomerular filtration rate.predicted panel (S/P/Bld) 97 mL/min/1.73m??? Normal >=60 [facility] [place] Comment on above: Order Comment: Augustine zee Type: BLOOD SPECIMENOrdering Facility: [facility] Address: [address] [place] [address] Result Comment: Kisha mated Glomerular Filtration Rate [...] Performed By: #### 2 4323-8 ####[facility] [id number] [place] [address] [place] Glucose [Mass/Vol] 94 mg/dL Normal 74-99 [facility] Comment on above: Order Comment: Augustine zee Type: BLOOD SPECIMENOrdering Facility: [facility] Address: [address] [place] [address] Result Comment: The [place] Diabetes [employer] (ADA) provides guidance for cutoff [...] Standards of Medical Care in Diabetes 2016, [place] [employer]. Diabetes Care. 2016.39(Suppl 1). Performed By: #### 2 4323-8 ####[facility] [id number] [place] [address] [place] Potassium [Moles/Vol] 4.1 mmol/L Normal 3.7-5.1 [facility] [place] Comment on above: Order Comment: Speci men Type: BLOOD SPECIMENOrdering Facility: [facility] Address: [address] [place], [place] [address] Performed By: #### 2 4323-8 ####[facility] KIESHAWHITE HEATHNCYOHANAA [id number] [place] [address] [place] Protein [Mass/Vol] 6.8 g/dL Normal 6.3-8.0 [facility] Comment on above: Order Comment: Speci men Type: BLOOD SPECIMENOrdering Facility: [facility] Address: [address] [place] [address] Performed By: #### 2 4323-8 ####[facility]ITALNCM[facility] [id number] [place] [address] [place] Sodium [Moles/Vol] 140 mmol/L Normal 136-144 [facility] Comment on above: Order Comment: Speci men Type: BLOOD SPECIMENOrdering Facility: [facility] Address: [address] [place] [address] Performed By: #### 2 4323-8 ####[facility] HOSPITALNCA [id number] [place] [address] [place] Urea nitrogen [Mass/Vol] 18 mg/dL Normal 9-24 [facility] [place] Comment on above: Order Comment: Speci men Type: BLOOD SPECIMENOrdering Facility: [facility] Address: [address] [place] [address] Performed By: #### 2 4323-8 ####[facility]ITALNCLIA [id number] [place] [address] [place] Cortis SerPl-mCdenitaon 03-22-20 24 Cortisol [Mass/Vol] 5.4 ug/dL Normal 4.8-19.5 [facility] Comment on above: Order Comment: Speci men Type: BLOOD SPECIMENOrdering Facility: [facility] Address: [address] [place] [address] Result Comment: Prov ided reference range is from 6-10 AM sample collection time.Cortisol Reference Range: 6-10 AM = 4.8-19.5 ug/dL, 4-8 PM = 2.5-11.9 ug/dL Performed By: #### 2 143-6, 3016-3 ####[facility] [id number] [place] [id number] [place] TSH SerPl-aCncon 03-22-2024 TSH Qn 1.330 m[IU]/L Normal 0.270-4.200 [facility] [place] Comment on above: Order Comment: Speci men Type: BLOOD SPECIMENOrdering Facility: [facility] Address: [address] [place] [address] Performed By: #### 2 143-6, 3015-3 ####[facility]CL[facility] [id number] [address] [place] CNOVon 03-15-2024 CNOV Normal [facility] [place] CNOVSPon 03-10-2024 CNOVSP Normal [facility] [place] Venous Duplex US, Unilateral on 11-11-2021 Venous Duplex US, Unilateral [facility] [address] [place] [address] Venous Duplex US, Unilateral 11/11/21 1233 MR#: [id number] Acct: [id number] Name: CHUN ALCARAZ Rep #: [id number] : 1960 61 From: Josiah Donnelly MD [...] _ Ordering Physician: Luis Marin Referring Physician: [facility] Performed By: Migdalia Nicholson, RDCS, RVT 11/12/21 1904 Date Josiah Donnelly MD CC: Dr. Luis Marin MD; [facility] Date Dictated: 11/11/21 1233 Date Transcribed: 11/12/211903 Geological Drafter: Signed Normal [facility] Emergency Department Summary on 11-10-2021 Emergency Department Summary [facility] Medical Records Department [address] [place] [address] Emergency Department Summary 11/10/21 MR#: [id number] Acct: [id number] Name: CHUN ALCARAZ Rep #: [id number] : 1960 61 From: Luis Marin MD PCP: [place], [place] Status:[facility] ER Location: ED HPI History of [...] male had knee replacement surgery done in [place] at [facility] orthopedics on the . Has been [...] 12/05/16 [History Last Taken Unknown] multivit with kkd-XY-sjvidgti [One Daily Hipbone's fsboWOW Tablet] 1 ea PO DAILY 12/05/16 [History [...] soft; Negati (more content not included)... Normal [facility] .Auto Diffon 10-15-2021 Basophil, Absolute 0.10 10 3/mcL Normal 0.00-0.19 [facility] ([place]) Comment on above: Performed By: #### C BC, ADIFF, ANEU, BMP, GFR #### Natalie [address] [address] Basophils/100 WBC (Bld) 0.8 % Normal 0.0-2.5 [facility] ([place]) Comment on above: Performed By: #### C BC, ADIFF, ANEU, BMP, GFR #### [address] [address] Eosinophil, Absolute 0.20 10 3/mcL Normal 0.00-0.40 [facility] ([place] Comment on above: Performed By: #### C BC, ADIFF, ANEU, BMP, GFR #### [address] [address] Eosinophils/100 WBC (Bld) 2.8 % Normal 0.0-7.0 [facility] ([place] Comment on above: Performed By: #### C BC, ADIFF, ANEU, BMP, GFR #### [address] [address] Lymphocyte, Absolute 1.90 10 3/mcL Normal 0.77-3.85 A [facility] ([place] Comment on above: Performed By: #### C BC, ADIFF, ANEU, BMP, GFR #### [address] [address] Lymphocytes/100 WBC (Bld) 27.3 % Normal 10.0-50.0 [facility] ([place] Comment on above: Performed By: #### C BC, ADIFF, ANEU, BMP, GFR #### [address] [address] Monocyte, Absolute 0.50 10 3/mcL Normal 0.15-1.00 [facility] ([place] Comment on above: Performed By: #### C BC, ADIFF, ANEU, BMP, GFR #### [address] [address] Monocytes/100 WBC (Bld) 7.1 % Normal 1.7-13.0 [facility] ([place] Comment on above: Performed By: #### C BC, ADIFF, ANEU, BMP, GFR #### [address] [address] Neutrophils/100 WBC (Bld) 62.0 % Normal 37.0-80.0 [facility] ([place] Comment on above: Performed By: #### C BC, ADIFF, ANEU, BMP, GFR #### [address] [address] .GFRon 10-15-2021 GFR 103 ml/min/1.73sqm Normal [facility] ([place]) Comment on above: Result Comment: GFR Population [...] C BC, ADIFF, ANEU, BMP, GFR #### [address] [address] GFR Non- 85 ml/min/1.73sqm Normal [facility] ([place]) Comment on above: Result Comment: GFR Population [...] C BC, ADIFF, ANEU, BMP, GFR #### [address] [address] .NEUABSon 10-15-2021 Neutrophil, Absolute 4.30 10 3/mcL Normal 2.85-6.16 A [facility] ([place] Comment on above: Performed By: #### C BC, ADIFF, ANEU, BMP, GFR #### [address] [address] BMPon 10-15-2021 BUN/Creatinine Ratio 20 ratio Normal 7-27 [facility] ([place] Comment on above: Performed By: #### C BC, ADIFF, ANEU, BMP, GFR #### [address] [address] Calcium [Mass/Vol] 9.4 mg/dL Normal 8.4-10.2 [facility] ([place]) Comment on above: Performed By: #### C BC, ADIFF, ANEU, BMP, GFR #### [address] [address] Chloride [Moles/Vol] 107 mmol/L Normal 98-107 [facility] ([place]) Comment on above: Performed By: #### C BC, ADIFF, ANEU, BMP, GFR #### [address] [address] CO2 [Moles/Vol] 30 mmol/L Normal 23-31 [facility]placed by [facility] ([place]) Comment on above: Performed By: #### C BC, ADIFF, ANEU, BMP, GFR #### [address] [address] Creatinine [Mass/Vol] 0.91 mg/dL Normal 0.70-1.30 [facility] ([place] Comment on above: Performed By: #### C BC, ADIFF, ANEU, BMP, GFR #### [address] [address] Electrolyte Balance 7.0 mEq/L Normal 4.0-15.0 [facility] ([place]) Comment on above: Performed By: #### C BC, ADIFF, ANEU, BMP, GFR #### [address] [address] Glucose [Mass/Vol] 96 mg/dL Normal 80-115 [facility] ([place] Comment on above: Performed By: #### C BC, ADIFF, ANEU, BMP, GFR #### [address] [address] Potassium [Moles/Vol] 5.0 mmol/L Normal 3.5-5.1 [facility] ([place] Comment on above: Performed By: #### C BC, ADIFF, ANEU, BMP, GFR #### [address] [address] Sodium [Moles/Vol] 144 mmol/L Normal 136-145 [facility] ([place] Comment on above: Performed By: #### C BC, ADIFF, ANEU, BMP, GFR #### [address] [address] Urea nitrogen [Mass/Vol] 18 mg/dL Normal 7-18 [facility] ([place] Comment on above: Performed By: #### C BC, ADIFF, ANEU, BMP, GFR #### [address] [address] CBCon 10-15-2021 Erythrocyte distribution width (RBC) [Ratio] 14.2 % Normal 11.5-14.5 [facility] ([place] Comment on above: Performed By: #### C BC, ADIFF, ANEU, BMP, GFR #### [address] [address] Hematocrit (Bld) [Volume fraction] 38.4 % Low 42.0-52.0 [facility] ([place] Comment on above: Performed By: #### C BC, ADIFF, ANEU, BMP, GFR #### [address] [address] Hgb 13.0 G/dL Low 14.0-18.0 [facility] ([place] Comment on above: Performed By: #### C BC, ADIFF, ANEU, BMP, GFR #### [address] [address] MCH (RBC) [Entitic mass] 29.3 pg Normal 27.0-31.2 [facility] ([place] Comment on above: Performed By: #### C BC, ADIFF, ANEU, BMP, GFR #### [address] [address] MCHC 33.9 G/dL Normal 31.8-35.4 [facility] ([place] Comment on above: Performed By: #### C BC, ADIFF, ANEU, BMP, GFR #### [address] [address] MCV (RBC) [Entitic vol] 86.5 fL Normal 80.0-94.0 [facility] ([place] Comment on above: Performed By: #### C BC, ADIFF, ANEU, BMP, GFR #### [address] [address] Platelet 338 10 3/mcL Normal 130-400 [facility] ([place]) Comment on above: Performed By: #### C BC, ADIFF, ANEU, BMP, GFR #### [address] [address] Platelet mean volume (Bld) [Entitic vol] 7.2 fL Low 7.4-10.4 [facility] ([place]) Comment on above: Performed By: #### C BC, ADIFF, ANEU, BMP, GFR #### [address] [address] RBC 4.44 10 6/mcL Normal 4.04-6.13 [facility] ([place]) Comment on above: Performed By: #### C BC, ADIFF, ANEU, BMP, GFR #### [address] [address] WBC 6.90 10 3/mcL Normal 4.60-10.80 [facility] ([place] Comment on above: Performed By: #### C BC, ADIFF, ANEU, BMP, GFR #### [address] [address] LABORATORYOrdered By: Marla Nguyen on 10-15-2021 Basophil, [...] 020 CRP [Mass/Vol] 0.2 mg/dL Normal <0.9 [facility] Comment on above: Performed By: #### W SR, CBC, CRP #### [facility] Routine Lab [address] [place], [place] [address] CBCon 02-16-2020 Absolute nRBC <0.01 Normal <0.01 [facility] Comment on above: Performed By: #### W SR, CBC, CRP #### [facility] Routine Lab [address] [place], [place] [address] Erythrocyte distribution width (RBC) [Ratio] 13.3 % Normal 11.5-15.0 [facility] Comment on above: Performed By: #### W SR, CBC, CRP #### [facility] Routine Lab [address] [place], [place] [address] Hematocrit (Bld) [Volume fraction] 45.1 % Normal 39.0-51.0 [facility] Comment on above: Performed By: #### W SR, CBC, CRP #### [facility] Routine Lab [address] [place] [address] Hemoglobin (Bld) [Mass/Vol] 14.1 g/dL Normal 13.0-17.0 [facility] Comment on above: Performed By: #### W SR, CBC, CRP #### [facility] Routine Lab [address] [place], [place] [address] MCH (RBC) [Entitic mass] 28.1 pG Normal 26.0-34.0 [facility] Comment on above: Performed By: #### W SR, CBC, CRP #### [facility] Routine Lab [address] [place], [place] [address] MCHC (RBC) [Mass/Vol] 31.3 g/dL Normal 30.5-36.0 [facility] Comment on above: Performed By: #### W SR, CBC, CRP #### [facility] Routine Lab [address] [place], [place] [address] MCV (RBC) [Entitic vol] 90.0 fL Normal 80.0-100.0 [facility] Comment on above: Performed By: #### W SR, CBC, CRP #### [facility] Routine Lab [address] [place], [place] [address] Platelet mean volume (Bld) [Entitic vol] 10.0 fL Normal 9.0-12.7 [facility] Comment on above: Performed By: #### W SR, CBC, CRP #### [facility] Routine Lab [address] [place], [place] [address] Platelets (Bld) [#/Vol] 290 10*3/uL Normal 150-400 [facility] Comment on above: Performed By: #### W SR, CBC, CRP #### [facility] Routine Lab [address] [place] [address] RBC (Bld) [#/Vol] 5.01 10*6/uL Normal 4.20-6.00 [facility] Comment on above: Performed By: #### W SR, CBC, CRP #### [facility] Routine Lab [address] [place] [address] WBC (Bld) [#/Vol] 6.63 10*3/uL Normal 3.70-11.00 [facility] [facility] Comment on above: Performed By: #### W SR, CBC, CRP #### [facility] Routine Lab [address] [address] Sed Rate Westergrenon 2019 Sed Rate Westergren 5 mm/hr Normal 0-15 [facility] Comment on above: Performed By: #### W SR, CBC, CRP #### [facility] Routine Lab [address] [address] CERVICAL MYELOGRAM IN SPECIA LSon 10-11-2019 CERVICAL [...] cervical myelogram. CT to follow. Dictated by Nailing Machine Operator: Blair Christensen DO Reviewed and Signed by: Salinas Horan MD ---- Electronic Signature on File ---- Signed By: Salinas Horan MD [email or web address] Dictated: 10/11/2019 10:26 AM Signed: 10/11/2019 10:40 AM Reported By: SALINAS HORAN M.D. Signed By: SALINAS HORAN M.D. [facility] CT CERVICAL SP. WITH CONon 0 10-11-2019 [...] ---- Signed By: Shira Thompson MD [email or web address] Dictated: 10/11/2019 9:31 AM Signed: 10/11/2019 9:54 AM Reported By: SHIRA THOMPSON M.D. Signed By: SHIRA THOMPSON M.D. [facility] CT LUMBAR SP WO CONon 2018 CT [...] CHAVEZ M.D. Signed By: AYLA CHAVEZ M.D. [facility] Vital Signs Date Time Vital Sign Value Performing Clinician Margo bragg 02-28-2025 10:47-0400 Diastolic blood pressure 92 mm[Hg] Jose Brennan APRN.CNP Work Phone: [facility] 02-28-2025 10:47-0400 Systolic blood pressure 140 mm[Hg] Jose Brennan APRN.COLOR STRAINING BAG WASHER Work Phone: [facility] 02-28-2025 10:41-0400 Body mass index (BMI) [Ratio] 28.02 kg/m2 Jose Brennan APRN.[employer] STRAINING BAG WASHER Work Phone: [facility] 02-28-2025 10:41-0400 Body weight 86.8 kg Jose Brennan APRN.CNP Work Phone: [facility] 02-28-2025 10:41-0400 Heart rate 87 /min Jose Brennan APRN.[employer] STRAINING BAG WASHER Work Phone: [facility] 02-28-2025 10:41-0400 SaO2% (BldA) [Mass fraction] 98 % Jose Anu MINING SUPPORT WORKER.[employer] STRAINING BAG WASHER Work Phone: [facility] 01-17-2025 09:19-0400 Diastolic blood pressure 90 mm[Hg] Jose Anu MINING SUPPORT WORKER.[employer] STRAINING BAG WASHER Work Phone: [facility] 01-17-2025 09:19-0400 Systolic blood pressure 148 mm[Hg] Jose Anu MINING SUPPORT WORKER.[employer] STRAINING BAG WASHER Work Phone: [facility] 01-17-2025 09:14-0400 Body mass index (BMI) [Ratio] 29.47 kg/m2 Jose Anu MINING SUPPORT WORKER.[employer] STRAINING BAG WASHER Work Phone: [facility] 01-17-2025 09:14-0400 Body weight 91.3 kg Jose Anu MINING SUPPORT WORKER.[employer] STRAINING BAG WASHER Work Phone: [facility] 01-17-2025 09:14-0400 Heart rate 79 /min Jose Anu MINING SUPPORT WORKER.[employer] STRAINING BAG WASHER Work Phone: [facility] 01-17-2025 09:14-0400 SaO2% (BldA) [Mass fraction] 98 % Jose Anu MINING SUPPORT WORKER.[employer] STRAINING BAG WASHER Work Phone: [facility] 11-16-2024 10:54-0400 Body mass index (BMI) [Ratio] 29.96 kg/m2 Jose Anu MINING SUPPORT WORKER.[employer] STRAINING BAG WASHER Work Phone: [facility] 11-16-2024 10:54-0400 Body temperature 98.29 [degF] Jose Anu MINING SUPPORT WORKER.[employer] STRAINING BAG WASHER Work Phone: [facility] 11-16-2024 10:54-0400 Body weight 92.8 kg Jose Anu MINING SUPPORT WORKER.[employer] STRAINING BAG WASHER Work Phone: [facility] 11-16-2024 10:54-0400 Diastolic blood pressure 70 mm[Hg] Jose Anu MINING SUPPORT WORKER.[employer] STRAINING BAG WASHER Work Phone: [facility] 11-16-2024 10:54-0400 Heart rate 82 /min Jose Anu MINING SUPPORT WORKER.[employer] STRAINING BAG WASHER Work Phone: [facility] 11-16-2024 10:54-0400 SaO2% (BldA) [Mass fraction] 96 % Jose Brennan MINING SUPPORT WORKER.[employer] STRAINING BAG WASHER Work Phone: [facility] 11-16-2024 10:54-0400 Systolic blood pressure 120 mm[Hg] Jose Brennan MINING SUPPORT WORKER.[employer] STRAINING BAG WASHER Work Phone: [facility] 11-11-2024 08:24-0500 Body mass index (BMI) [Ratio] 30.39 kg/m2 Roger Dorsey MD Work Phone: [facility] 11-11-2024 08:24-0500 Body temperature 97.81 [degF] Roger Dorsey MD Work Phone: [facility] 11-11-2024 08:24-0500 Body weight 94.12 kg Roger Dorsey MD Work Phone: [facility] 11-11-2024 08:24-0500 Diastolic blood pressure 83 mm[Hg] Roger Dorsey MD Work Phone: [facility] 11-11-2024 08:24-0500 Heart rate 86 /min Roger Dorsey MD Work Phone: [facility] 11-11-2024 08:24-0500 SaO2% (BldA) [Mass fraction] 98 % Roger Dorsey MD Work Phone: [facility] 11-11-2024 08:24-0500 Systolic blood pressure 136 mm[Hg] Roger Dorsey MD Work Phone: [facility] 11-04-2024 13:55-0500 Body mass index (BMI) [Ratio] 30.02 kg/m2 Treatment Wstr Work Phone: [facility] 11-04-2024 13:55-0500 Body temperature 97.7 [degF] Treatment Wstr Work Phone: [facility] 11-04-2024 13:55-0500 Body weight 92.99 kg Treatment Wstr Work Phone: [facility] 11-04-2024 13:55-0500 Diastolic blood pressure 88 mm[Hg] Treatment Wstr Work Phone: [facility] 11-04-2024 13:55-0500 Heart rate 88 /min Treatment Wstr Work Phone: [facility] 11-04-2024 13:55-0500 SaO2% (BldA) [Mass fraction] 95 % Treatment Wstr Work Phone: [facility] 11-04-2024 13:55-0500 Systolic blood pressure 141 mm[Hg] Treatment Wstr Work Phone: [facility] 11-03-2024 09:53-0500 Body mass index (BMI) [Ratio] 30.68 kg/m2 Roger Dorsey MD Work Phone: [facility] 11-03-2024 09:53-0500 Body temperature 96.8 [degF] Roger Dorsey MD Work Phone: [facility] 11-03-2024 09:53-0500 Body weight 95.03 kg Roger Dorsey MD Work Phone: [facility] 11-03-2024 09:53-0500 Diastolic blood pressure 105 mm[Hg] Roger Dorsey MD Work Phone: [facility] 11-03-2024 09:53-0500 Heart rate 93 /min Roger Dorsey MD Work Phone: [facility] 11-03-2024 09:53-0500 SaO2% (BldA) [Mass fraction] 100 % Roger Dorsey MD Work Phone: [facility] 11-03-2024 09:53-0500 Systolic blood pressure 150 mm[Hg] Roger Dorsey MD Work Phone: [facility] 10-14-2024 08:14-0500 Body mass index (BMI) [Ratio] 30.17 kg/m2 Treatment Wstr Work Phone: [facility] 10-14-2024 08:14-0500 Body temperature 97.2 [degF] Treatment Wstr Work Phone: [facility] 10-14-2024 08:14-0500 Body weight 93.44 kg Treatment Wstr Work Phone: [facility] 10-14-2024 08:14-0500 Diastolic blood pressure 87 mm[Hg] Treatment Wstr Work Phone: [facility] 10-14-2024 08:14-0500 Heart rate 90 /min Treatment Wstr Work Phone: [facility] 10-14-2024 08:14-0500 Respiratory rate 18 /min Treatment Wstr Work Phone: [facility] 10-14-2024 08:14-0500 SaO2% (BldA) [Mass fraction] 97 % Treatment Wstr Work Phone: [facility] 10-14-2024 08:14-0500 Systolic blood pressure 153 mm[Hg] Treatment Wstr Work Phone: [facility] 10-07-2024 13:15-0500 Body temperature 97.11 [degF] Treatment Wstr Work Phone: [facility] 10-07-2024 13:15-0500 Diastolic blood pressure 87 mm[Hg] Treatment Wstr Work Phone: [facility] 10-07-2024 13:15-0500 Heart rate 87 /min Treatment Wstr Work Phone: [facility] 10-07-2024 13:15-0500 SaO2% (BldA) [Mass fraction] 97 % Treatment Wstr Work Phone: [facility] 10-07-2024 13:15-0500 Systolic blood pressure 146 mm[Hg] Treatment Wstr Work Phone: [facility] 10-06-2024 09:16-0500 Body mass index (BMI) [Ratio] 29.58 kg/m2 Roger Dorsey MD Work Phone: [facility] 10-06-2024 09:16-0500 Body temperature 97 [degF] Roger Dorsey MD Work Phone: [facility] 10-06-2024 09:16-0500 Body weight 91.63 kg Roger Dorsey MD Work Phone: [facility] 10-06-2024 09:16-0500 Diastolic blood pressure 90 mm[Hg] Roger Dorsey MD Work Phone: [facility] 10-06-2024 09:16-0500 Heart rate 87 /min Roger Dorsey MD Work Phone: [facility] 10-06-2024 09:16-0500 SaO2% (BldA) [Mass fraction] 96 % Roger Dorsey MD Work Phone: [facility] 10-06-2024 09:16-0500 Systolic blood pressure 142 mm[Hg] Roger Dorsey MD Work Phone: [facility] 09-23-2024 13:35-0500 Body mass index (BMI) [Ratio] 30.02 kg/m2 Treatment Wstr Work Phone: [facility] 09-23-2024 13:35-0500 Body temperature 97.11 [degF] Treatment Wstr Work Phone: [facility] 09-23-2024 13:35-0500 Body weight 92.99 kg Treatment Wstr Work Phone: [facility] 09-23-2024 13:35-0500 Diastolic blood pressure 79 mm[Hg] Treatment Wstr Work Phone: [facility] 09-23-2024 13:35-0500 Heart rate 80 /min Treatment Wstr Work Phone: [facility] 09-23-2024 13:35-0500 Respiratory rate 16 /min Treatment Wstr Work Phone: [facility] 09-23-2024 13:35-0500 SaO2% (BldA) [Mass fraction] 99 % Treatment Wstr Work Phone: [facility] 09-23-2024 13:35-0500 Systolic blood pressure 141 mm[Hg] Treatment Wstr Work Phone: [facility] 09-16-2024 13:40-0500 Body mass index (BMI) [Ratio] 29.95 kg/m2 Treatment Wstr Work Phone: [facility] 09-16-2024 13:40-0500 Body temperature 97.11 [degF] Treatment Wstr Work Phone: [facility] 09-16-2024 13:40-0500 Body weight 92.76 kg Treatment Wstr Work Phone: [facility] 09-16-2024 13:40-0500 Diastolic blood pressure 78 mm[Hg] Treatment Wstr Work Phone: [facility] 09-16-2024 13:40-0500 Heart rate 81 /min Treatment Wstr Work Phone: [facility] 09-16-2024 13:40-0500 SaO2% (BldA) [Mass fraction] 97 % Treatment Wstr Work Phone: [facility] 09-16-2024 13:40-0500 Systolic blood pressure 132 mm[Hg] Treatment Wstr Work Phone: [facility] 09-09-2024 08:32-0500 Body mass index (BMI) [Ratio] 28.99 kg/m2 Karon Robleroight Work Phone: [facility] 09-09-2024 08:32-0500 Body temperature 96.49 [degF] Karon Conte Work Phone: [facility] 09-09-2024 08:32-0500 Body weight 89.81 kg Karon Conte Work Phone: [facility] 09-09-2024 08:32-0500 Diastolic blood pressure 84 mm[Hg] Karon Conte Work Phone: [facility] 09-09-2024 08:32-0500 Heart rate 106 /min Karon Conte Work Phone: [facility] 09-09-2024 08:32-0500 SaO2% (BldA) [Mass fraction] 97 % Karonaziza Conte Work Phone: [facility] 09-09-2024 08:32-0500 Systolic blood pressure 130 mm[Hg] Karonkesha Conte Work Phone: [facility] 08-26-2024 13:42-0500 Body mass index (BMI) [Ratio] 29.65 kg/m2 Treatment Wstr Work Phone: [facility] 08-26-2024 13:42-0500 Body temperature 97 [degF] Treatment Wstr Work Phone: [facility] 08-26-2024 13:42-0500 Body weight 91.85 kg Treatment Wstr Work Phone: [facility] 08-26-2024 13:42-0500 Diastolic blood pressure 85 mm[Hg] Treatment Wstr Work Phone: [facility] 08-26-2024 13:42-0500 Heart rate 71 /min Treatment Wstr Work Phone: [facility] 08-26-2024 13:42-0500 Respiratory rate 18 /min Treatment Wstr Work Phone: [facility] 08-26-2024 13:42-0500 SaO2% (BldA) [Mass fraction] 99 % Treatment Wstr Work Phone: [facility] 08-26-2024 13:42-0500 Systolic blood pressure 134 mm[Hg] Treatment Wstr Work Phone: [facility] 08-19-2024 08:23-0500 Body mass index (BMI) [Ratio] 29.95 kg/m2 Treatment Wstr Work Phone: [facility] 08-19-2024 08:23-0500 Body temperature 97.81 [degF] Treatment Wstr Work Phone: [facility] 08-19-2024 08:23-0500 Body weight 92.76 kg Treatment Wstr Work Phone: [facility] 08-19-2024 08:23-0500 Diastolic blood pressure 80 mm[Hg] Treatment Wstr Work Phone: [facility] 08-19-2024 08:23-0500 Heart rate 71 /min Treatment Wstr Work Phone: [facility] 08-19-2024 08:23-0500 Respiratory rate 18 /min Treatment Wstr Work Phone: [facility] 08-19-2024 08:23-0500 SaO2% (BldA) [Mass fraction] 99 % Treatment Wstr Work Phone: [facility] 08-19-2024 08:23-0500 Systolic blood pressure 135 mm[Hg] Treatment Wstr Work Phone: [facility] 08-12-2024 14:29-0500 Body mass index (BMI) [Ratio] 29.65 kg/m2 Treatment Wstr Work Phone: [facility] 08-12-2024 14:29-0500 Body temperature 97.3 [degF] Treatment Wstr Work Phone: [facility] 08-12-2024 14:29-0500 Body weight 91.85 kg Treatment Wstr Work Phone: [facility] 08-12-2024 14:29-0500 Diastolic blood pressure 79 mm[Hg] Treatment Wstr Work Phone: [facility] 08-12-2024 14:29-0500 Heart rate 74 /min Treatment Wstr Work Phone: [facility] 08-12-2024 14:29-0500 SaO2% (BldA) [Mass fraction] 97 % Treatment Wstr Work Phone: [facility] 08-12-2024 14:29-0500 Systolic blood pressure 132 mm[Hg] Treatment Wstr Work Phone: [facility] 08-06-2024 11:32-0500 Body mass index (BMI) [Ratio] 29.14 kg/m2 Roger Dorsey MD Work Phone: [facility] 08-06-2024 11:32-0500 Body temperature 97 [degF] Roger Dorsey MD Work Phone: [facility] 08-06-2024 11:32-0500 Body weight 90.27 kg Roger Dorsey MD Work Phone: [facility] 08-06-2024 11:32-0500 Diastolic blood pressure 88 mm[Hg] Roger Dorsey MD Work Phone: [facility] 08-06-2024 11:32-0500 Heart rate 87 /min Roger Dorsey MD Work Phone: [facility] 08-06-2024 11:32-0500 SaO2% (BldA) [Mass fraction] 98 % Roger Dorsey MD Work Phone: [facility] 08-06-2024 11:32-0500 Systolic blood pressure 139 mm[Hg] Roger Dorsey MD Work Phone: [facility] 07-19-2024 07:57-0500 Diastolic blood pressure 72 mm[Hg] Jose Anu MINING SUPPORT WORKER.[employer] STRAINING BAG WASHER Work Phone: [facility] 07-19-2024 07:57-0500 Systolic blood pressure 124 mm[Hg] Joes Anu MINING SUPPORT WORKER.[employer] STRAINING BAG WASHER Work Phone: [facility] 07-19-2024 07:55-0500 Body mass index (BMI) [Ratio] 29.67 kg/m2 Jose Anu MINING SUPPORT WORKER.[employer] STRAINING BAG WASHER Work Phone: [facility] 07-19-2024 07:55-0500 Body weight 91.9 kg Jose Anu MINING SUPPORT WORKER.[employer] STRAINING BAG WASHER Work Phone: [facility] 07-19-2024 07:55-0500 Heart rate 78 /min Jose Anu MINING SUPPORT WORKER.[employer] STRAINING BAG WASHER Work Phone: [facility] 07-19-2024 07:55-0500 SaO2% (BldA) [Mass fraction] 98 % Jose Anu MINING SUPPORT WORKER.[employer] STRAINING BAG WASHER Work Phone: [facility] 06-23-2024 09:45-0400 Body mass index (BMI) [Ratio] 28.92 kg/m2 Roger Dorsey MD Work Phone: [facility] 06-23-2024 09:45-0400 Body temperature 97 [degF] Roger Dorsey MD Work Phone: [facility] 06-23-2024 09:45-0400 Body weight 89.58 kg Roger Dorsey MD Work Phone: [facility] 06-23-2024 09:45-0400 Diastolic blood pressure 79 mm[Hg] Roger Dorsey MD Work Phone: [facility] 06-23-2024 09:45-0400 Heart rate 86 /min Roger Dorsey MD Work Phone: [facility] 06-23-2024 09:45-0400 SaO2% (BldA) [Mass fraction] 99 % Roger Dorsey MD Work Phone: [facility] 06-23-2024 09:45-0400 Systolic blood pressure 145 mm[Hg] Roger Dorsey MD Work Phone: [facility] 06-23-2024 09:14-0400 Body mass index (BMI) [Ratio] 28.92 kg/m2 Vimal Stoner MD Work Phone: [facility] 06-23-2024 09:14-0400 Body temperature 97 [degF] Vimal Stoner MD Work Phone: [facility] 06-23-2024 09:14-0400 Body weight 89.58 kg Vimal Stoner MD Work Phone: [facility] 06-23-2024 09:14-0400 Diastolic blood pressure 79 mm[Hg] Vimal Stoner MD Work Phone: [facility] 06-23-2024 09:14-0400 Heart rate 86 /min Vimal Stoner MD Work Phone: [facility] 06-23-2024 09:14-0400 SaO2% (BldA) [Mass fraction] 99 % Vimal Stoner MD Work Phone: [facility] 06-23-2024 09:14-0400 Systolic blood pressure 145 mm[Hg] Vimal Stoner MD Work Phone: [facility] 06-18-2024 09:16-0400 Body mass index (BMI) [Ratio] 28.48 kg/m2 Roger Dorsey MD Work Phone: [facility] 06-18-2024 09:16-0400 Body temperature 97.39 [degF] Roger Dorsey MD Work Phone: [facility] 06-18-2024 09:16-0400 Body weight 88.22 kg Roger Dorsey MD Work Phone: [facility] 06-18-2024 09:16-0400 Diastolic blood pressure 80 mm[Hg] Roger Dorsey MD Work Phone: [facility] 06-18-2024 09:16-0400 Heart rate 84 /min Roger Dorsey MD Work Phone: [facility] 06-18-2024 09:16-0400 SaO2% (BldA) [Mass fraction] 100 % Roger Dorsey MD Work Phone: [facility] 06-18-2024 09:16-0400 Systolic blood pressure 117 mm[Hg] Roger Dorsey MD Work Phone: [facility] 06-04-2024 08:56-0400 Body mass index (BMI) [Ratio] 28.99 kg/m2 Karon Conte Work Phone: [facility] 06-04-2024 08:56-0400 Body temperature 97.5 [degF] Karon Conte Work Phone: [facility] 06-04-2024 08:56-0400 Body weight 89.81 kg Karon Conte Work Phone: [facility] 06-04-2024 08:56-0400 Diastolic blood pressure 74 mm[Hg] Karon Conte Work Phone: [facility] 06-04-2024 08:56-0400 Heart rate 99 /min Karon Conte Work Phone: [facility] 06-04-2024 08:56-0400 SaO2% (BldA) [Mass fraction] 98 % Karon Conte Work Phone: [facility] 06-04-2024 08:56-0400 Systolic blood pressure 123 mm[Hg] Karon Conte Work Phone: [facility] 05-27-2024 11:55-0400 Body temperature 96.8 [degF] Roger Dorsey MD Work Phone: [facility] 05-27-2024 11:55-0400 Diastolic blood pressure 90 mm[Hg] Roger Dorsey MD Work Phone: [facility] 05-27-2024 11:55-0400 Heart rate 88 /min Roger Dorsey MD Work Phone: [facility] 05-27-2024 11:55-0400 Respiratory rate 12 /min Roger Dorsey MD Work Phone: [facility] 05-27-2024 11:55-0400 SaO2% (BldA) [Mass fraction] 96 % Roger Dorsey MD Work Phone: [facility] 05-27-2024 11:55-0400 Systolic blood pressure 143 mm[Hg] Roger Dorsey MD Work Phone: [facility] 05-19-2024 13:54-0400 Diastolic blood pressure 73 mm[Hg] Jose Anu MINING SUPPORT WORKER.[employer] STRAINING BAG WASHER Work Phone: [facility] 05-19-2024 13:54-0400 Systolic blood pressure 127 mm[Hg] Jose Anu MINING SUPPORT WORKER.[employer] STRAINING BAG WASHER Work Phone: [facility] 05-19-2024 13:52-0400 Body mass index (BMI) [Ratio] 29.51 kg/m2 Jose Anu MINING SUPPORT WORKER.[employer] STRAINING BAG WASHER Work Phone: [facility] 05-19-2024 13:52-0400 Body temperature 98.01 [degF] Jose Anu MINING SUPPORT WORKER.[employer] STRAINING BAG WASHER Work Phone: [facility] 05-19-2024 13:52-0400 Body weight 91.4 kg Jose Anu MINING SUPPORT WORKER.[employer] STRAINING BAG WASHER Work Phone: [facility] 05-19-2024 13:52-0400 Heart rate 94 /min Jose Anu MINING SUPPORT WORKER.[employer] STRAINING BAG WASHER Work Phone: [facility] 05-17-2024 14:11-0400 Body mass index (BMI) [Ratio] 30.24 kg/m2 Treatment Wstr Work Phone: [facility] 05-17-2024 14:11-0400 Body temperature 98.1 [degF] Treatment Wstr Work Phone: [facility] 05-17-2024 14:11-0400 Body weight 93.67 kg Treatment Wstr Work Phone: [facility] 05-17-2024 14:11-0400 Diastolic blood pressure 84 mm[Hg] Treatment Wstr Work Phone: [facility] 05-17-2024 14:11-0400 Heart rate 83 /min Treatment Wstr Work Phone: [facility] 05-17-2024 14:11-0400 Respiratory rate 18 /min Treatment Wstr Work Phone: [facility] 05-17-2024 14:11-0400 SaO2% (BldA) [Mass fraction] 95 % Treatment Wstr Work Phone: [facility] 05-17-2024 14:11-0400 Systolic blood pressure 131 mm[Hg] Treatment Wstr Work Phone: [facility] 05-03-2024 13:20-0400 Body mass index (BMI) [Ratio] 30.24 kg/m2 Treatment Wstr Work Phone: [facility] 05-03-2024 13:20-0400 Body temperature 98.01 [degF] Treatment Wstr Work Phone: [facility] 05-03-2024 13:20-0400 Body weight 93.67 kg Treatment Wstr Work Phone: [facility] 05-03-2024 13:20-0400 Diastolic blood pressure 81 mm[Hg] Treatment Wstr Work Phone: [facility] 05-03-2024 13:20-0400 Heart rate 85 /min Treatment Wstr Work Phone: [facility] 05-03-2024 13:20-0400 Respiratory rate 16 /min Treatment Wstr Work Phone: [facility] 05-03-2024 13:20-0400 SaO2% (BldA) [Mass fraction] 94 % Treatment Wstr Work Phone: [facility] 05-03-2024 13:20-0400 Systolic blood pressure 129 mm[Hg] Treatment Wstr Work Phone: [facility] 04-30-2024 10:10-0400 Body mass index (BMI) [Ratio] 30.39 kg/m2 Karon Conte Work Phone: [facility] 04-30-2024 10:10-0400 Body temperature 97.11 [degF] Karon Conte Work Phone: [facility] 04-30-2024 10:10-0400 Body weight 94.12 kg Karon Conte Work Phone: [facility] 04-30-2024 10:10-0400 Diastolic blood pressure 82 mm[Hg] Karon Conte Work Phone: [facility] 04-30-2024 10:10-0400 Heart rate 82 /min Karon Conte Work Phone: [facility] 04-30-2024 10:10-0400 SaO2% (BldA) [Mass fraction] 97 % Karon Conte Work Phone: [facility] 04-30-2024 10:10-0400 Systolic blood pressure 129 mm[Hg] Karon Conte Work Phone: [facility] 04-19-2024 13:31-0400 Body mass index (BMI) [Ratio] 29.51 kg/m2 Treatment Wstr Work Phone: [facility] 04-19-2024 13:31-0400 Body temperature 97.7 [degF] Treatment Wstr Work Phone: [facility] 04-19-2024 13:31-0400 Body weight 91.4 kg Treatment Wstr Work Phone: [facility] 04-19-2024 13:31-0400 Diastolic blood pressure 74 mm[Hg] Treatment Wstr Work Phone: [facility] 04-19-2024 13:31-0400 Heart rate 84 /min Treatment Wstr Work Phone: [facility] 04-19-2024 13:31-0400 Respiratory rate 18 /min Treatment Wstr Work Phone: [facility] 04-19-2024 13:31-0400 SaO2% (BldA) [Mass fraction] 94 % Treatment Wstr Work Phone: [facility] 04-19-2024 13:31-0400 Systolic blood pressure 119 mm[Hg] Treatment Wstr Work Phone: [facility] 04-05-2024 14:30-0400 Body temperature 97 [degF] Treatment Wstr Work Phone: [facility] 04-05-2024 14:30-0400 Diastolic blood pressure 76 mm[Hg] Treatment Wstr Work Phone: [facility] 04-05-2024 14:30-0400 Heart rate 84 /min Treatment Wstr Work Phone: [facility] 04-05-2024 14:30-0400 Respiratory rate 16 /min Treatment Wstr Work Phone: [facility] 04-05-2024 14:30-0400 SaO2% (BldA) [Mass fraction] 100 % Treatment Wstr Work Phone: [facility] 04-05-2024 14:30-0400 Systolic blood pressure 142 mm[Hg] Treatment Wstr Work Phone: [facility] 04-02-2024 12:47-0400 Body mass index (BMI) [Ratio] 29.73 kg/m2 Karonkesha Conte Work Phone: [facility] 04-02-2024 12:47-0400 Body temperature 97.11 [degF] Karonkesha Conte Work Phone: [facility] 04-02-2024 12:47-0400 Body weight 92.08 kg Karonkesha Conte Work Phone: [facility] 04-02-2024 12:47-0400 Diastolic blood pressure 83 mm[Hg] Karonkesha Conte Work Phone: [facility] 04-02-2024 12:47-0400 Heart rate 91 /min Karonkesha Conte Work Phone: [facility] 04-02-2024 12:47-0400 SaO2% (BldA) [Mass fraction] 100 % Karon Conte Work Phone: [facility] 04-02-2024 12:47-0400 Systolic blood pressure 132 mm[Hg] Karonkesha Conte Work Phone: [facility] 03-22-2024 13:40-0400 Body mass index (BMI) [Ratio] 29.87 kg/m2 Treatment Wstr Work Phone: [facility] 03-22-2024 13:40-0400 Body temperature 97.11 [degF] Treatment Wstr Work Phone: [facility] 03-22-2024 13:40-0400 Body weight 92.53 kg Treatment Wstr Work Phone: [facility] 03-22-2024 13:40-0400 Diastolic blood pressure 83 mm[Hg] Treatment Wstr Work Phone: [facility] 03-22-2024 13:40-0400 Heart rate 80 /min Treatment Wstr Work Phone: [facility] 03-22-2024 13:40-0400 Respiratory rate 20 /min Treatment Wstr Work Phone: [facility] 03-22-2024 13:40-0400 Systolic blood pressure 119 mm[Hg] Treatment Wstr Work Phone: [facility] 03-15-2024 07:56-0400 Body mass index (BMI) [Ratio] 29.43 kg/m2 Jose Anu MINING SUPPORT WORKER.[employer] STRAINING BAG WASHER Work Phone: [facility] 03-15-2024 07:56-0400 Body weight 91.17 kg Jose Anu MINING SUPPORT WORKER.COLOR STRAINING BAG WASHER Work Phone: [facility] 03-15-2024 07:56-0400 Diastolic blood pressure 78 mm[Hg] Jose Anu MINING SUPPORT WORKER.COLOR STRAINING BAG WASHER Work Phone: [facility] 03-15-2024 07:56-0400 Heart rate 92 /min Jose Anu MINING SUPPORT WORKER.COLOR STRAINING BAG WASHER Work Phone: [facility] 03-15-2024 07:56-0400 SaO2% (BldA) [Mass fraction] 98 % Jose Anu MINING SUPPORT WORKER.COLOR STRAINING BAG WASHER Work Phone: [facility] 03-15-2024 07:56-0400 Systolic blood pressure 118 mm[Hg] Jose Anu MINING SUPPORT WORKER.COLOR STRAINING BAG WASHER Work Phone: [facility] 03-10-2024 08:43-0400 Body mass index (BMI) [Ratio] 30.17 kg/m2 Roger Dorsey MD Work Phone: [facility] 03-10-2024 08:43-0400 Body temperature 97.11 [degF] Roger Dorsey MD Work Phone: [facility] 03-10-2024 08:43-0400 Body weight 93.44 kg Roger Dorsey MD Work Phone: [facility] 03-10-2024 08:43-0400 Diastolic blood pressure 83 mm[Hg] Roger Dorsey MD Work Phone: [facility] 03-10-2024 08:43-0400 Heart rate 84 /min Roger Dorsey MD Work Phone: [facility] 03-10-2024 08:43-0400 SaO2% (BldA) [Mass fraction] 96 % Roger Dorsey MD Work Phone: [facility] 03-10-2024 08:43-0400 Systolic blood pressure 143 mm[Hg] Roger Dorsey MD Work Phone: [facility] 02-18-2024 11:17-0400 Body temperature 97.39 [degF] Vimal Stoner MD Work Phone: [facility] 02-18-2024 11:17-0400 Diastolic blood pressure 83 mm[Hg] Vimal Stoner MD Work Phone: [facility] 02-18-2024 11:17-0400 Heart rate 90 /min Vimal Stoner MD Work Phone: [facility] 02-18-2024 11:17-0400 SaO2% (BldA) [Mass fraction] 100 % Vimal Stoner MD Work Phone: [facility] 02-18-2024 11:17-0400 Systolic blood pressure 143 mm[Hg] Vimal Stoner MD Work Phone: [facility] 02-11-2024 14:31-0400 Body mass index (BMI) [Ratio] 30.53 kg/m2 Roger Dorsey MD Work Phone: [facility] 02-11-2024 14:31-0400 Body temperature 96.69 [degF] Roger Dorsey MD Work Phone: [facility] 02-11-2024 14:31-0400 Body weight 94.58 kg Roger Dorsey MD Work Phone: [facility] 02-11-2024 14:31-0400 Diastolic blood pressure 91 mm[Hg] Roger Dorsey MD Work Phone: [facility] 02-11-2024 14:31-0400 Heart rate 98 /min Roger Dorsey MD Work Phone: [facility] 02-11-2024 14:31-0400 SaO2% (BldA) [Mass fraction] 99 % Roger Dorsey MD Work Phone: [facility] 02-11-2024 14:31-0400 Systolic blood pressure 151 mm[Hg] Roger Dorsey MD Work Phone: [facility] 01-26-2024 11:41-0400 Diastolic blood pressure 70 mm[Hg] Treatment Wstr Work Phone: [facility] 01-26-2024 11:41-0400 Heart rate 82 /min Treatment Wstr Work Phone: [facility] 01-26-2024 11:41-0400 Respiratory rate 16 /min Treatment Wstr Work Phone: [facility] 01-26-2024 11:41-0400 SaO2% (BldA) [Mass fraction] 97 % Treatment Wstr Work Phone: [facility] 01-26-2024 11:41-0400 Systolic blood pressure 128 mm[Hg] Treatment Wstr Work Phone: [facility] 01-26-2024 08:54-0400 Body mass index (BMI) [Ratio] 30.17 kg/m2 Treatment Wstr Work Phone: [facility] 01-26-2024 08:54-0400 Body temperature 97.59 [degF] Treatment Wstr Work Phone: [facility] 01-26-2024 08:54-0400 Body weight 93.44 kg Treatment Wstr Work Phone: [facility] 01-06-2024 13:49-0400 Body mass index (BMI) [Ratio] 30.9 kg/m2 Jose Anu MINING SUPPORT WORKER.COLOR STRAINING BAG WASHER Work Phone: [facility] 01-06-2024 13:49-0400 Body weight 95.71 kg Jose Anu MINING SUPPORT WORKER.COLOR STRAINING BAG WASHER Work Phone: [facility] 01-06-2024 13:49-0400 Diastolic blood pressure 72 mm[Hg] Jose Anu MINING SUPPORT WORKER.COLOR STRAINING BAG WASHER Work Phone: [facility] 01-06-2024 13:49-0400 Heart rate 93 /min Jose Anu MINING SUPPORT WORKER.COLOR STRAINING BAG WASHER Work Phone: [facility] 01-06-2024 13:49-0400 SaO2% (BldA) [Mass fraction] 98 % Jose Anu MINING SUPPORT WORKER.COLOR STRAINING BAG WASHER Work Phone: [facility] 01-06-2024 13:49-0400 Systolic blood pressure 138 mm[Hg] Jose Anu MINING SUPPORT WORKER.COLOR STRAINING BAG WASHER Work Phone: [facility] 01-05-2024 13:38-0400 Body temperature 97 [degF] Treatment Wstr Work Phone: [facility] 01-05-2024 13:38-0400 Diastolic blood pressure 79 mm[Hg] Treatment Wstr Work Phone: [facility] 01-05-2024 13:38-0400 Heart rate 86 /min Treatment Wstr Work Phone: [facility] 01-05-2024 13:38-0400 Respiratory rate 18 /min Treatment Wstr Work Phone: [facility] 01-05-2024 13:38-0400 SaO2% (BldA) [Mass fraction] 93 % Treatment Wstr Work Phone: [facility] 01-05-2024 13:38-0400 Systolic blood pressure 122 mm[Hg] Treatment Wstr Work Phone: [facility] 01-01-2024 14:44-0400 Body mass index (BMI) [Ratio] 30.31 kg/m2 Roger Dorsey MD Work Phone: [facility] 01-01-2024 14:44-0400 Body temperature 97.39 [degF] Roger Dorsey MD Work Phone: [facility] 01-01-2024 14:44-0400 Body weight 93.89 kg Roger Dorsey MD Work Phone: [facility] 01-01-2024 14:44-0400 Diastolic blood pressure 84 mm[Hg] Roger Dorsey MD Work Phone: [facility] 01-01-2024 14:44-0400 Heart rate 54 /min Roger Dorsey MD Work Phone: [facility] 01-01-2024 14:44-0400 SaO2% (BldA) [Mass fraction] 97 % Roger Dorsey MD Work Phone: [facility] 01-01-2024 14:44-0400 Systolic blood pressure 145 mm[Hg] Roger Dorsey MD Work Phone: [facility] 12-30-2023 08:51-0400 Body temperature 97 [degF] Vimal Stoner MD Work Phone: [facility] 12-30-2023 08:51-0400 Diastolic blood pressure 78 mm[Hg] Vimal Stoner MD Work Phone: [facility] 12-30-2023 08:51-0400 Heart rate 88 /min Vimal Stoner MD Work Phone: [facility] 12-30-2023 08:51-0400 SaO2% (BldA) [Mass fraction] 98 % Vimal Stoner MD Work Phone: [facility] 12-30-2023 08:51-0400 Systolic blood pressure 134 mm[Hg] Vimal Stoner MD Work Phone: [facility] 12-23-2023 08:56-0400 Body temperature 97.5 [degF] Vimal Stoner MD Work Phone: [facility] 12-23-2023 08:56-0400 Diastolic blood pressure 81 mm[Hg] Vimal Stoner MD Work Phone: [facility] 12-23-2023 08:56-0400 Heart rate 85 /min Vimal Stoner MD Work Phone: [facility] 12-23-2023 08:56-0400 SaO2% (BldA) [Mass fraction] 98 % Vimal Stoner MD Work Phone: [facility] 12-23-2023 08:56-0400 Systolic blood pressure 127 mm[Hg] Vimal Stoner MD Work Phone: [facility] 12-17-2023 08:49-0400 Body temperature 97.2 [degF] Vimal Stoner MD Work Phone: [facility] 12-17-2023 08:49-0400 Diastolic blood pressure 78 mm[Hg] Vimal Stoner MD Work Phone: [facility] 12-17-2023 08:49-0400 Heart rate 74 /min Vimal Stoner MD Work Phone: [facility] 12-17-2023 08:49-0400 SaO2% (BldA) [Mass fraction] 98 % Vimal Stoner MD Work Phone: [facility] 12-17-2023 08:49-0400 Systolic blood pressure 150 mm[Hg] Vimal Stoner MD Work Phone: [facility] 12-16-2023 14:39-0400 Body weight 92.99 kg Marry Smith MINING SUPPORT WORKER.FILLING STATION EQUIPMENT MECHANIC Work Phone: [facility] 12-16-2023 14:39-0400 Diastolic blood pressure 81 mm[Hg] Marry Smith MINING SUPPORT WORKER.FILLING STATION EQUIPMENT MECHANIC Work Phone: [facility] 12-16-2023 14:39-0400 Heart rate 72 /min Marry Smith MINING SUPPORT WORKER.FILLING STATION EQUIPMENT MECHANIC Work Phone: [facility] 12-16-2023 14:39-0400 Respiratory rate 16 /min Marry Smith MINING SUPPORT WORKER.FILLING STATION EQUIPMENT MECHANIC Work Phone: [facility] 12-16-2023 14:39-0400 Systolic blood pressure 126 mm[Hg] Marry Smith MINING SUPPORT WORKER.FILLING STATION EQUIPMENT MECHANIC Work Phone: [facility] 12-15-2023 13:04-0400 Body temperature 97.59 [degF] Treatment Wstr Work Phone: [facility] 12-15-2023 13:04-0400 Diastolic blood pressure 72 mm[Hg] Treatment Wstr Work Phone: [facility] 12-15-2023 13:04-0400 Heart rate 72 /min Treatment Wstr Work Phone: [facility] 12-15-2023 13:04-0400 Respiratory rate 18 /min Treatment Wstr Work Phone: [facility] 12-15-2023 13:04-0400 SaO2% (BldA) [Mass fraction] 100 % Treatment Wstr Work Phone: [facility] 12-15-2023 13:04-0400 Systolic blood pressure 121 mm[Hg] Treatment Wstr Work Phone: [facility] 12-12-2023 11:52-0400 Body temperature 97.39 [degF] Roger Dorsey MD Work Phone: [facility] 12-12-2023 11:52-0400 Body weight 93.21 kg Roger Dorsey MD Work Phone: [facility] 12-12-2023 11:52-0400 Diastolic blood pressure 75 mm[Hg] Roger Dorsey MD Work Phone: [facility] 12-12-2023 11:52-0400 Heart rate 75 /min Roger Dorsey MD Work Phone: [facility] 12-12-2023 11:52-0400 SaO2% (BldA) [Mass fraction] 99 % Roger Dorsey MD Work Phone: [facility] 12-12-2023 11:52-0400 Systolic blood pressure 121 mm[Hg] Roger Dorsey MD Work Phone: [facility] 12-09-2023 09:00-0400 Body temperature 97.2 [degF] Roscoe Huddleston MD Work Phone: [facility] 12-09-2023 09:00-0400 Body weight 93.44 kg Roscoe Huddleston MD Work Phone: [facility] 12-09-2023 09:00-0400 Diastolic blood pressure 93 mm[Hg] Roscoe Huddleston MD Work Phone: [facility] 12-09-2023 09:00-0400 Heart rate 78 /min Roscoe Huddleston MD Work Phone: [facility] 12-09-2023 09:00-0400 SaO2% (BldA) [Mass fraction] 97 % Roscoe Huddleston MD Work Phone: [facility] 12-09-2023 09:00-0400 Systolic blood pressure 132 mm[Hg] Roscoe Huddleston MD Work Phone: [facility] 12-02-2023 09:03-0400 Body temperature 97.11 [degF] Matthew Sánchez MD Work Phone: [facility] 12-02-2023 09:03-0400 Body weight 92.53 kg Matthew Sánchez MD Work Phone: [facility] 12-02-2023 09:03-0400 Diastolic blood pressure 84 mm[Hg] Matthew Sánchez MD Work Phone: [facility] 12-02-2023 09:03-0400 Heart rate 78 /min Matthew Sánchez MD Work Phone: [facility] 12-02-2023 09:03-0400 SaO2% (BldA) [Mass fraction] 98 % Matthew Sánchez MD Work Phone: [facility] 12-02-2023 09:03-0400 Systolic blood pressure 126 mm[Hg] Matthew Sánchez MD Work Phone: [facility] 11-25-2023 13:20-0400 Body weight 93.89 kg Jose Anu MINING SUPPORT WORKER.COLOR STRAINING BAG WASHER Work Phone: [facility] 11-25-2023 13:20-0400 Diastolic blood pressure 81 mm[Hg] Jose Anu MINING SUPPORT WORKER.COLOR STRAINING BAG WASHER Work Phone: [facility] 11-25-2023 13:20-0400 Heart rate 79 /min Jose Anu MINING SUPPORT WORKER.COLOR STRAINING BAG WASHER Work Phone: [facility] 11-25-2023 13:20-0400 Respiratory rate 16 /min Jose Anu MINING SUPPORT WORKER.COLOR STRAINING BAG WASHER Work Phone: [facility] 11-25-2023 13:20-0400 Systolic blood pressure 122 mm[Hg] Jose Contrerasmaira RODRIGEZ Work Phone: [facility] 11-25-2023 09:02-0400 Body temperature 98.01 [degF] Vimal Stoner MD Work Phone: [facility] 11-25-2023 09:02-0400 Diastolic blood pressure 81 mm[Hg] Vimal Stoner MD Work Phone: [facility] 11-25-2023 09:02-0400 Heart rate 79 /min Vimal Stoner MD Work Phone: [facility] 11-25-2023 09:02-0400 SaO2% (BldA) [Mass fraction] 98 % Vimal Stoner MD Work Phone: [facility] 11-25-2023 09:02-0400 Systolic blood pressure 122 mm[Hg] Vimal Stoner MD Work Phone: [facility] 11-24-2023 08:28-0400 Body temperature 97.39 [degF] Treatment Wstr Work Phone: [facility] 11-24-2023 08:28-0400 Diastolic blood pressure 83 mm[Hg] Treatment Wstr Work Phone: [facility] 11-24-2023 08:28-0400 Heart rate 72 /min Treatment Wstr Work Phone: [facility] 11-24-2023 08:28-0400 SaO2% (BldA) [Mass fraction] 98 % Treatment Wstr Work Phone: [facility] 11-24-2023 08:28-0400 Systolic blood pressure 147 mm[Hg] Treatment Wstr Work Phone: [facility] 11-24-2023 08:00-0400 Body weight 93.44 kg Treatment Wstr Work Phone: [facility] 11-19-2023 10:57-0400 Body height 176 cm Roger Dorsey MD Work Phone: [facility] 11-19-2023 10:57-0400 Body temperature 97.3 [degF] Roger Dorsey MD Work Phone: [facility] 11-19-2023 10:57-0400 Body weight 92.08 kg Roger Dorsey MD Work Phone: [facility] 11-19-2023 10:57-0400 Diastolic blood pressure 82 mm[Hg] Roger Dorsey MD Work Phone: [facility] 11-19-2023 10:57-0400 Heart rate 80 /min Roger Dorsey MD Work Phone: [facility] 11-19-2023 10:57-0400 SaO2% (BldA) [Mass fraction] 98 % Roger Dorsey MD Work Phone: [facility] 11-19-2023 10:57-0400 Systolic blood pressure 126 mm[Hg] Roger Dorsey MD Work Phone: [facility] 11-12-2023 09:47-0500 Body temperature 97.39 [degF] Vimal Stoner MD Work Phone: [facility] 11-12-2023 09:47-0500 Body weight 92.53 kg Vimal Stoner MD Work Phone: [facility] 11-12-2023 09:47-0500 Diastolic blood pressure 79 mm[Hg] Vimal Stoner MD Work Phone: [facility] 11-12-2023 09:47-0500 Heart rate 77 /min Vimal Stoner MD Work Phone: [facility] 11-12-2023 09:47-0500 SaO2% (BldA) [Mass fraction] 97 % Vimal Stoner MD Work Phone: [facility] 11-12-2023 09:47-0500 Systolic blood pressure 122 mm[Hg] Vimal Stoner MD Work Phone: [facility] 11-10-2023 08:03-0500 Body height 177.8 cm Jose Anu MINING SUPPORT WORKER.COLOR STRAINING BAG WASHER Work Phone: [facility] 11-10-2023 08:03-0500 Body weight 92.99 kg Jose Anu MINING SUPPORT WORKER.COLOR STRAINING BAG WASHER Work Phone: [facility] 11-10-2023 08:03-0500 Diastolic blood pressure 80 mm[Hg] Jose Anu MINING SUPPORT WORKER.COLOR STRAINING BAG WASHER Work Phone: [facility] 11-10-2023 08:03-0500 Heart rate 80 /min Jose Anu MINING SUPPORT WORKER.COLOR STRAINING BAG WASHER Work Phone: [facility] 11-10-2023 08:03-0500 Respiratory rate 16 /min Jose Anu MINING SUPPORT WORKER.COLOR STRAINING BAG WASHER Work Phone: [facility] 11-10-2023 08:03-0500 Systolic blood pressure 120 mm[Hg] Jose Anu MINING SUPPORT WORKER.COLOR STRAINING BAG WASHER Work Phone: [facility] 08-01-2023 11:22-0500 Body weight 93.89 kg Jose Anu MINING SUPPORT WORKER.COLOR STRAINING BAG WASHER Work Phone: [facility] 08-01-2023 11:22-0500 Diastolic blood pressure 70 mm[Hg] Jose Anu MINING SUPPORT WORKER.COLOR STRAINING BAG WASHER Work Phone: [facility] 08-01-2023 11:22-0500 Heart rate 80 /min Jose Anu MINING SUPPORT WORKER.COLOR STRAINING BAG WASHER Work Phone: [facility] 08-01-2023 11:22-0500 SaO2% (BldA) [Mass fraction] 98 % Jose Anu MINING SUPPORT WORKER.COLOR STRAINING BAG WASHER Work Phone: [facility] 08-01-2023 11:22-0500 Systolic blood pressure 134 mm[Hg] Jose Anu MINING SUPPORT WORKER.COLOR STRAINING BAG WASHER Work Phone: [facility] 07-11-2023 07:17-0400 Body weight 92.08 kg Jose Anu MINING SUPPORT WORKER.COLOR STRAINING BAG WASHER Work Phone: [facility] 07-11-2023 07:17-0400 Diastolic blood pressure 64 mm[Hg] Jose Anu MINING SUPPORT WORKER.COLOR STRAINING BAG WASHER Work Phone: [facility] 07-11-2023 07:17-0400 Heart rate 69 /min Jose Anu MINING SUPPORT WORKER.COLOR STRAINING BAG WASHER Work Phone: [facility] 07-11-2023 07:17-0400 SaO2% (BldA) [Mass fraction] 97 % Jose Anu MINING SUPPORT WORKER.COLOR STRAINING BAG WASHER Work Phone: [facility] 07-11-2023 07:17-0400 Systolic blood pressure 128 mm[Hg] Jose Anu MINING SUPPORT WORKER.COLOR STRAINING BAG WASHER Work Phone: [facility] 04-14-2023 07:21-0400 Body weight 93.89 kg Jose Anu MINING SUPPORT WORKER.COLOR STRAINING BAG WASHER Work Phone: [facility] 04-14-2023 07:21-0400 Diastolic blood pressure 76 mm[Hg] Jose Anu MINING SUPPORT WORKER.COLOR STRAINING BAG WASHER Work Phone: [facility] 04-14-2023 07:21-0400 Heart rate 76 /min Jose Anu MINING SUPPORT WORKER.COLOR STRAINING BAG WASHER Work Phone: [facility] 04-14-2023 07:21-0400 Respiratory rate 16 /min Jose Anu MINING SUPPORT WORKER.COLOR STRAINING BAG WASHER Work Phone: [facility] 04-14-2023 07:21-0400 SaO2% (BldA) [Mass fraction] 100 % Jose Anu MINING SUPPORT WORKER.COLOR STRAINING BAG WASHER Work Phone: [facility] 04-14-2023 07:21-0400 Systolic blood pressure 140 mm[Hg] Jose Anu MINING SUPPORT WORKER.COLOR STRAINING BAG WASHER Work Phone: [facility] 01-10-2023 10:04-0400 Body height 174.6 cm Jose Anu MINING SUPPORT WORKER.COLOR STRAINING BAG WASHER Work Phone: [facility] 01-10-2023 10:04-0400 Body weight 95.21 kg Jose Anu MINING SUPPORT WORKER.COLOR STRAINING BAG WASHER Work Phone: [facility] 01-10-2023 10:04-0400 Diastolic blood pressure 70 mm[Hg] Jose Anu MINING SUPPORT WORKER.COLOR STRAINING BAG WASHER Work Phone: [facility] 01-10-2023 10:04-0400 Heart rate 71 /min Jose Brennan APRN.COLOR STRAINING BAG WASHER Work Phone: [facility] 01-10-2023 10:04-0400 SaO2% (BldA) [Mass fraction] 98 % Jose Brennan MINING SUPPORT WORKER.COLOR STRAINING BAG WASHER Work Phone: [facility] 01-10-2023 10:04-0400 Systolic blood pressure 136 mm[Hg] Jose Brennan APRN.COLOR STRAINING BAG WASHER Work Phone: [facility] Encounters Encounter Date Encounter Type Care Provider [...] End: 02-28-2025 Patient encounter procedure Jose Brennan APRN.COLOR STRAINING BAG WASHER Work Phone: [facility] Comment on above: Chronic right-sided thoracic back pain (Primary Dx); Insomnia due to medical condition; Chronic nonintractable headache, unspecified headache type; Primary hypertension; Malignant neoplasm of lung, unspecified laterality, unspecified part of lung (HCC); Cancer, metastatic to bone (HCC); Malignant neoplasm of prostate (HCC); Situational mixed anxiety and depressive disorder Start: 02-28-2025 End: 02-28-2025 ambulatory JOSE BRENNAN Facility:[facility] Start: 02-22-2025 End: 03-04-2025 Telephone encounter Marcia CUELLO Hematology/Oncology Comment on above: Social Work Services ; PET Scan Coverage Social Work Services ; Scheduling Request Start: 02-04-2025 End: 02-09-2025 Telephone encounter Jose Brennan APRN.COLOR STRAINING BAG WASHER Work Phone: [facility] Comment on above: supplies returned Start: 01-17-2025 [facility] Facility:[facility] Start: 01-17-2025 End: 01-17-2025 Subsequent hospital visit by physician Anthony [facility] Work Phone: Radiology Comment on above: Cancer, metastatic t o bone (HCC) [C79.51] Start: 01-17-2025 End: 01-17-2025 Patient encounter procedure Jose Contrerasr MINING SUPPORT WORKER.COLOR STRAINING BAG WASHER Work Phone: [facility] Comment on above: Insomnia due to medi anne condition (Primary Dx); Malignant neoplasm of lung, unspecified laterality, unspecified part of lung (HCC); Cancer, metastatic to bone (HCC); Situational mixed anxiety and depressive disorder; Primary hypertension; Chronic right-sided thoracic back pain; 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); Constipation, unspecified constipation type Start: 01-17-2025 End: 01-17-2025 [facility] Start: 11-19-2024 End: 01-19-2025 Follow-up encounter Jose Brennan APRN.COLOR STRAINING BAG WASHER Work Phone: [facility] [place] Comment on above: Results Start: 11-16-2024 End: 11-16-2024 Telephone encounter Marcia CUELLO Hematology/Oncology Comment on above: Social Work Services Start: 11-16-2024 End: 11-16-2024 Subsequent hospital visit by physician Anthony [facility] Work Phone: Radiology Comment on above: Subacute cough [R05. 2] Start: 11-16-2024 End: 11-16-2024 [facility] Start: 11-16-2024 End: 11-16-2024 Patient encounter procedure Jose Contrerasr MINING SUPPORT WORKER.COLOR STRAINING BAG WASHER Work Phone: [facility] [place] Comment on above: Sinobronchitis (Prim wiley Dx); [...] (Primary Dx) Start: 11-08-2024 ambulatory ROGER Molina ity:[facility] Start: 11-08-2024 End: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 OV 07/30/ AUTH EXP 11/18/24* OV EVERY OTHER CYCLE Hematology/Oncology Comment on above: Q2WK IMFINZI/LAB & OV 07/30/ AUTH EXP * OV EVERY OTHER CYCLE Start: 08-01-2024 Annual PCP Team Chronic Disease Visit Annual PCP Team Chronic Disease Visit [facility] Start: 07-30-2024 End: 07-30-2024 ambulatory [place] [facility] Comment on above: (SO)CBC/CMP(S)/TSH/CORTISOL* OV/LABS EARLY/CHEMO 08/02* Start: 07-26-2024 End: 07-26-2024 ambulatory 07/26/2024 2:00 PM EST [facility] Hematology/Oncology [address] [place] [address] Q2WK IMFINZI/LAB & OV AUTH EXP 11/18/24* OV EVERY OTHER CYCLE Hematology/Oncology Comment on above: Q2WK IMFINZI/LAB & OV 07/23/ AUTH EXP * OV EVERY OTHER CYCLE Start: 07-23-2024 End: 07-23-2024 ambulatory [place] [facility] Comment on above: (SO)CBC/CMP(S)/TSH/CORTISOL* OV/LABS EARLY/CHEMO 07/26* Start: 07-19-2024 End: 07-19-2024 ambulatory [place] [facility] Comment on above: (SO)CBC/CMP(S)/TSH/CORTISOL* Q2WK IMFINZI/LAB EAR LYAUTH EXP 11/18/24* OV EVERY OTHER CYCLE Start: 07-19-2024 End: 07-19-2024 Patient encounter procedure 07/19/2024 8:00 AM EST Office Visit [facility] [place] [address] [place] [address] Jose Brennan APRN.COLOR STRAINING BAG WASHER [address] [place] [address] 4 month follow up [facility] [place] Comment on above: 4 month follow up Start: 07-12-2024 End: 07-12-2024 ambulatory [place] Comment on above: (SO)CBC/CMP(S)/TSH/CORTISOL* Q2WK IMFINZI/LAB EAR LYAUTH EXP 11/18/24* OV EVERY OTHER CYCLE Start: 07-11-2024 Annual PCP Team Chronic Disease Visit Annual PCP Team Chronic Disease Visit [facility] Start: 07-11-2024 BP Controlled (<130/80) BP Controlled (<130/80) [facility] in Start: 07-05-2024 End: 07-05-2024 ambulatory 07/05/2024 2:30 PM EDT Infusion Center Hematology/Oncology [address] [place] [address] Q2WK IMFINZI/LAB & OV 07/02/ AUTH EXP 11/18/24* OV EVERY OTHER CYCLE Hematology/Oncology Comment on above: Q2WK IMFINZI/LAB & OV 07/02/ AUTH EXP * OV EVERY OTHER CYCLE Start: 07-02-2024 End: 07-02-2024 ambulatory [facility] Comment on above: (SO)CBC/CMP(S)/TSH/CORTISOL* OV/LABS EARLY/CHEMO 07/05* Start: 06-28-2024 End: 06-28-2024 ambulatory 06/28/2024 2:00 PM EDT Infusion Center Hematology/Oncology [address] [place] [address] Q2WK IMFINZI/LAB & OV 06/25/ AUTH EXP 11/18/24* OV EVERY OTHER CYCLE Hematology/Oncology Comment on above: Q2WK IMFINZI/LAB & OV 06/25/ AUTH EXP * OV EVERY OTHER CYCLE Start: 06-25-2024 End: 06-25-2024 ambulatory [facility] Comment on above: (SO)CBC/CMP(S)/TSH/CORTISOL* OV/LABS EARLY/CHEMO 06/28* Start: 06-24-2024 End: 06-24-2024 ambulatory 06/24/2024 9:00 AM EDT [facility] Radiation Oncology [address] [place] [address] Vimal Stoner MD [address] [place] [address] 3 MO OV* Radiation Oncology Comment on above: 3 MO OV* Start: 06-23-2024 End: 06-23-2024 Patient encounter procedure 06/23/2024 9:00 AM EDT Office Visit Radiation Oncology [address] [place] [address] Vimal Stoner MD [address] [place] [address] 3 MO OV* Radiation Oncology Comment on above: 3 MO OV* Start: 06-23-2024 End: 06-23-2024 ambulatory Radiation Oncology Comment on above: 3 MO OV* OV/BX 06/09* OV/LABS EARLY/CHEMO 07/05* Start: 06-21-2024 End: 06-21-2024 ambulatory [facility] Comment on above: (SO)CBC/CMP(S)/TSH/CORTISOL* Q2WK IMFINZI/LAB EAR LYAUTH EXP 11/18/24* OV EVERY OTHER CYCLE Start: 06-18-2024 End: 06-18-2024 Follow-up encounter 06/18/2024 9:10 AM EDT Visit (SP) Office Hematology/Oncology [address] [place] [address] [place] [address] [place] [address] OV/BX 06/09/ED FOLLOW UP* Hematology/Oncology Comment on above: OV/BX 06/09/ED FOLLOW UP* Start: 06-14-2024 End: 06-14-2024 ambulatory [facility] Comment on above: (SO)CBC/CMP(S)/TSH/CORTISOL* Q2WK IMFINZI/LAB EAR LYAUTH EXP 11/18/24* OV EVERY OTHER CYCLE Start: 06-09-2024 End: 06-09-2024 Admission to same day surgery center 06/09/2024 12:00 PM EDT - 06/09/2024 1:00 PM EDT Surgery [facility] [address] [place] [address] Danyelle Singh MD, [id number] [place] [address] BONE BIOPSY [facility] Comment on above: BONE BIOPSY Start: 06-09-2024 End: 06-09-2024 Biopsy bone trocar/needle deep BIOPSY BONE FEMUR W/ TROCAR DEEP Neoplasm of bone 06/09/2024 12:00 PM EDT [facility] Start: 06-09-2024 Subsequent hospital visit by physician 06/09/2024 12:00 PM EDT [facility] [address] [place] [address] Danyelle Singh MD, [id number] [place] [id number] Neoplasm of bone [D49.2] [facility] Comment on above: Neoplasm of bone [D49.2] Start: 06-07-2024 End: 06-07-2024 ambulatory [place] [facility] Laboratory Comment on above: LAB* Q2WK IMFINZI/LAB EAR LY/ AUTH EXP 11/18/24* OV EVERY OTHER CYCLE Start: 06-04-2024 End: 09-03-2024 Prostate specific Ag [Mass/volume] in Serum or Plasma PROSTATE-SPECIFIC ANTIGEN DIAGNOSTIC Lab Routine 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) Malignant neoplasm of prostate (HCC) Expected: 06/04/2024, Expires: 09/03/2024 [facility] Work Phone: Comment on above: Expected: 06/04/2024, Expires: Start: 06-04-2024 End: 06-04-2024 ambulatory 06/04/2024 9:00 AM EDT Visit (SP) Office Hematology/Oncology [address] [place] [id number] Karon Conte [address] [place] [address] OV/PET 06/30* Hematology/Oncology Comment on above: OV/PET 06/30* Start: 05-31-2024 End: 05-31-2024 ambulatory 05/31/2024 2:30 PM EDT Infusion Center Hematology/Oncology [address] [place] [address] Q2WK IMFINZI/LAB & OV EXP 11/18/24* OV EVERY OTHER CYCLE Hematology/Oncology Comment on above: Q2WK IMFINZI/LAB & OV EXP 11/06 11/30* OV EVERY OTHER CYCLE Start: 05-31-2024 End: 05-31-2024 Patient encounter procedure Mobile PET CT Comment on above: NM PET/CT SKULL-THIGH SUBSEQUENT Start: 05-27-2024 End: 05-27-2024 ambulatory [facility] Comment on above: CBC/CMP/TSH/CORTISOL* OV/LABS EARLY/CHEMO 05/31* (SO)CBC/CMP(S)/TSH/C ORTISOL* Start: 05-17-2024 End: 05-17-2024 ambulatory [facility] Comment on above: CBC/CMP/TSH/CORTISOL* Q2WK IMFINZI/LAB EAR LYAUTH EXP 11/18/24* OV EVERY OTHER CYCLE (SO)CBC/CMP(S)/TSH/C ORTISOL* Start: 05-09-2024 Covid-19 Vaccine () Covid-19 Vaccine () [facility] Start: 05-09-2024 Covid-19 Vaccine ( season) Covid-19 Vaccine () [facility] Start: 05-09-2024 Influenza vaccination Influenza Vaccine (#1) [facility] Start: 05-03-2024 End: 05-03-2024 ambulatory 05/03/2024 1:30 PM EDT Infusion Center Hematology/Oncology [address] [place] [address] Q2WK IMFINZI/LAB & OV 04/30/ AUTH EXP 11/18/24* OV EVERY OTHER CYCLE Hematology/Oncology Comment on above: Q2WK IMFINZI/LAB & OV 04/30/ AUTH EXP 11/06 11/30* OV EVERY OTHER CYCLE Start: 04-30-2024 End: 04-30-2024 ambulatory [place] [facility] Comment on above: CBC/CMP/TSH/CORTISOL* OV/LABS EARLY/CHEMO* (SO)CBC/CMP(S)/TSH/C ORTISOL* Start: 04-29-2024 COVID-19 Vaccine ( formulation) COVID-19 Vaccine ( formulation) [facility] Start: 04-19-2024 End: 04-19-2024 ambulatory [facility] Comment on above: CBC/CMP/TSH/CORTISOL* Q2WK IMFINZI/LAB EAR LYAUTH EXP 11/18/24* OV EVERY OTHER CYCLE (SO)CBC/CMP(S)/TSH/C ORTISOL* Start: 04-05-2024 End: 04-05-2024 ambulatory 04/05/2024 2:30 PM EDT [facility] Hematology/Oncology [address], [place] [id number] Q2WK IMFINZI/LAB & OV 04/02 AUTH EXP 11/18/24* OV EVERY OTHER CYCLE Hematology/Oncology Comment on above: Q2WK IMFINZI/LAB & OV 04/02 AUTH EXP 11/18* OV EVERY OTHER CYCLE Start: 04-02-2024 End: 04-02-2024 ambulatory [place] [facility] Comment on above: CBC/CMP/TSH/CORTISOL* (SO)CBC/CMP(S)/TSH/C ORTISOL* Start: 04-02-2024 End: 04-02-2024 ambulatory [place] [facility] Comment on above: CBC/CMP/TSH/CORTISOL* OV/LABS EARLY/CHEMO 04/05* OV/LABS EARLY/CHEMO 04/05* enzo Start: 03-24-2024 End: 03-24-2024 ambulatory 03/24/2024 1:40 PM EDT Visit (SP) Office Hematology/Oncology [address] [place] [address] [place] [address] [place] [address] OV/CT* Hematology/Oncology Comment on above: OV/CT* Start: 03-24-2024 End: 03-24-2024 Follow-up encounter 03/24/2024 9:00 AM EDT [facility] Radiation Oncology [address] [place], [place] [address] Vimal Stoner MD [address] [place] [id number] 4 WK FOLLOW UP* Radiation Oncology Comment on above: 4 WK FOLLOW UP* Start: 03-22-2024 End: 03-22-2024 ambulatory [facility] Comment on above: LABS* CBC/CMP/TSH/CORTISOL /START Q2WK IMFINZI/ AUTH EXP 11/18/24* OV EVERY OTHER CYCLE (SO)CBC/CMP(S)/TSH/C ORTISOL/START Q2WK IMFINZI/ AUTH EXP 11/18/24* OV EVERY OTHER CYCLE Start: 03-19-2024 End: 03-19-2024 ambulatory 03/19/2024 10:30 AM EDT [facility] Hematology/Oncology [address] [place], [place] [address] Wstr, Evaporator Repairer [facility] [address] [place], [place] [phone] CHEMO ED - DURVALUMAB* Hematology/Oncology Comment on above: CHEMO ED - DURVALUMAB* Start: 03-15-2024 End: 03-15-2024 Patient encounter procedure 03/15/2024 8:00 AM EDT Office Visit [facility] [place] [address] [place], [place] [phone] Jose Brennan APRN.[employer]ING [employer] W[employer] [address] [place], [place] [phone] 4 mo follow up [facility] [place] Comment on above: 4 mo follow up Start: 03-10-2024 End: 03-10-2024 ambulatory Hematology/Oncology Comment on above: LVM FOR PATIENT TO CALL IN. MISAEL MAKE SAUMYA RE OF NEW APPT DAY AND TIME----- OV/CT 02/25* OV/CT 02/25* Start: 02-26-2024 End: 02-26-2024 Patient encounter procedure 02/26/2024 10:40 AM EDT Appointment Cat Scan [address] [place] [address] Malignant neoplasm of unspecified part of unspecified bronchus or lung (HCC) [C34.90] Cat Scan Comment on above: Malignant neoplasm of unspecified part o f unspecified bronchus or lung (HCC) [C34.90] Start: 02-25-2024 End: 02-25-2024 Patient encounter procedure 02/25/2024 11:00 AM EDT Appointment Radiation Oncology [address] [place] [address] Location: [email or web address] Comment on above: Location: [email or web address] Start: 02-23-2024 End: 02-23-2024 Patient encounter procedure 02/23/2024 11:00 AM EDT Appointment Radiation Oncology [address] [place] [address] Location: [email or web address] Comment on above: Location: [email or web address] Start: 02-20-2024 End: 02-20-2024 Patient encounter procedure 02/20/2024 11:00 AM EDT Appointment Radiation Oncology [address] [place] [address] Location: [email or web address] Comment on above: [...] 02-04-2024 Follow-up encounter 02/04/2024 2:30 PM EDT [facility] Radiation Oncology [address] [place] [address] Vimal Stoner MD [address] [place] [id number] 4 WK FOLLOW UP* Radiation Oncology Comment on above: 4 WK FOLLOW UP* Start: 01-26-2024 End: 01-26-2024 Patient encounter procedure Radiation Oncology Comment on above: [facility] wants late morning wants around 10am Start: 01-26-2024 End: 01-26-2024 ambulatory Hematology/Oncology Comment on above: Q3WK CARBO/ALIMTA/#4-4/LAB&OV 01/22/ON XR T/AUTH EXP 11/18/24* (SO)CBC/CMP(S)* (SO)CBC/CMP(S)Q3WK C ARBO/ALIMTA/#4-4/AUTH EXP 11/18/24* Start: 01-23-2024 End: 01-23-2024 ambulatory [place] [facility] Laboratory Comment on above: (SO)CBC/CMP(S)* OV/LABS TODAY/ CHEMO 01/25* Start: 01-15-2024 End: 01-15-2024 Patient encounter procedure 01/15/2024 11:30 AM EDT Office Visit Radiation Oncology [address] [place] [address] Vimal Stoner MD [address] [place] [phone] SBRT. compression belt. body fix. Radiation Oncology Comment on above: SBRT. compression belt. body fix. Start: 01-15-2024 End: 01-15-2024 Nursing evaluation of patient and report 01/15/2024 11:00 AM EDT Nurse Visit Radiation Oncology [address] [place] [address] Wstr, Nurse Radt [facility] [address] [place] [address] Location: [facility] Radiation Oncology Comment on above: Location: [facility] Start: 01-06-2024 End: 01-06-2024 Patient encounter procedure 01/06/2024 2:00 PM EDT Office Visit [facility] [place] [address] [place] [address] Jose Brennan APRN.[employer] W[employer]ER [address] [facility] [place] [address] headache recheck [facility] [place] Comment on above: headache recheck Start: 01-05-2024 End: 04-05-2024 Chronic hepatitis differentiation between hepatitis B and C virus panel - Serum or Plasma HEP REMOTE PANEL BL Lab Routine 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 schedule sbrt sim? con chemo. Start: 01-02-2024 End: 01-02-2024 Patient encounter procedure 01/02/2024 8:45 AM EDT Appointment Radiation Oncology [address] [place] [address] con chemo Radiation Oncology Comment on above: con chemo Start: 01-01-2024 End: 01-01-2024 ambulatory [place] [facility] Laboratory Comment on above: (SO)CBC/CMP(S)* OV/LABS TODAY/ CHEMO 01/04/zofran causing ROSADO-change?* enzo Start: 01-01-2024 End: 01-01-2024 Patient encounter procedure 01/01/2024 8:45 AM EDT Appointment Radiation Oncology [address] [place] [address] con chemo Radiation Oncology Comment on above: con chemo Start: 12-31-2023 End: 12-31-2023 Patient encounter procedure 12/31/2023 8:45 AM EDT Appointment Radiation Oncology [address] [place] [address] con chemo. Give appt card Radiation Oncology Comment on above: con chemo. Give appt card Start: 11-07-2023 Welcome to Medicare Visit (G0402) Welcome to Medicare Visit (G0402) [facility] Start: 10-28-2023 End: 01-27-2024 Hemoglobin A1c in Blood HGB A1C Lab Routine Obesity, Class I, BMI 30-34.9 Expected: 10/28/2023, Expires: 01/27/2024 [facility] Work Phone: Comment on above: Expected: 10/28/2023, Expires: Start: 10-28-2023 End: 01-27-2024 Lipid 1996 panel - Serum or Plasma LIPID PANEL BASIC Lab Routine Primary hypertension Expected: 10/28/2023, Expires: 01/27/2024 [facility] Work Phone: Comment on above: Expected: 10/28/2023, Expires: Start: 09-08-2023 Behavioral Health Screening Behavioral Health Screening [facility] Start: 09-08-2023 Depression Assessment Depression Assessment [facility] Start: 08-15-2023 End: 11-14-2023 CBC W Auto Differential panel - Blood CBC + DIFF Lab Routine Encounter for therapeutic drug monitoring Brain aneurysm Malignant neoplasm of prostate (HCC) Seizure-like activity (HCC) Expected: 08/15/2023, Expires: 11/14/2023 [facility] Work Phone: Comment on above: Expected: 08/15/2023, Expires: 4 Start: 08-15-2023 End: 11-14-2023 Cobalamin (Vitamin B12) [Mass/volume] in Serum or Plasma VITAMIN B12 BLOOD Lab Routine Encounter for therapeutic drug monitoring Brain aneurysm Malignant neoplasm of prostate (HCC) Seizure-like activity (HCC) Expected: 08/15/2023, Expires: 11/14/2023 [facility] Work Phone: Comment on above: Expected: 08/15/2023, Expires: Start: 08-15-2023 End: 11-14-2023 Comprehensive metabolic 2000 panel - Serum or Plasma COMP METABOLIC PANEL Lab Routine Encounter for therapeutic drug monitoring Brain aneurysm Malignant neoplasm of prostate (HCC) Seizure-like activity (HCC) Expected: 08/15/2023, Expires: 11/14/2023 [facility] Work Phone: Comment on above: Expected: 08/15/2023, Expires: 4 Start: 08-15-2023 Covid-19 Vaccine ( season) Covid-19 Vaccine ( season) [facility] Start: 08-15-2023 End: 11-14-2023 Thyrotropin [Units/volume] in Serum or Plasma TSH BLD Lab Routine Encounter for therapeutic drug monitoring Brain aneurysm Malignant neoplasm of prostate (HCC) Seizure-like activity (HCC) Expected: 08/15/2023, Expires: 11/14/2023 [facility] Work Phone: Comment on above: Expected: 08/15/2023, Expires: 4 Start: 05-09-2023 Influenza vaccination INFLUENZA (#1) [facility] Start: 2020 Hepatitis B (HBV) Vaccine (optional start 60+ years) Hepatitis B (HBV) Vaccine (optional start 60+ years) [facility] Start: 2020 RSV Vaccine (1 - 1-dose 60+ series) RSV Vaccine (1 - 1-dose 60+ series) [facility] Start: 2015 PROSTATE CANCER SCREENING DISCUSSION PROSTATE CANCER SCREENING DISCUSSION [facility] Start: 2010 Shingles (RZV) Vaccine (1 of 2) Shingles (RZV) Vaccine (1 of 2) [facility] Start: 2005 COLOGUARD (FIT-DNA) COLOGUARD (FIT-DNA) [facility] Start: 2005 Colonoscopy COLONOSCOPY [facility] Start: 2005 COLORECTAL CANCER SCREENING COLORECTAL CANCER SCREENING [facility] Start: [address] COLONOGRAPHY [facility] Start: 2005 DIABETES SCREEN DIABETES SCREEN [facility] Start: 2005 Diabetes Screening Diabetes Screening [facility] Start: 2005 FECAL OCCULT BLOOD FECAL OCCULT BLOOD [facility] Start: 2005 Screening for malignant neoplasm of colon [facility] Start: 2005 SIGMOIDOSCOPY SIGMOIDOSCOPY [facility] Start: 1995 Lipid 1996 panel - Serum or Plasma Lipid Screening [facility] Start: 1995 LIPID SCREEN LIPID SCREEN [facility] Start: 1979 Hepatitis A (HAV) Vaccine (optional start 19+ years) Hepatitis A (HAV) Vaccine (optional start 19+ years) [facility] Start: 1979 Tetanus vaccination Tetanus (Td or Tdap) Booster [facility] Start: 1978 BP Controlled (<130/80) BP Controlled (<130/80) [facility] Start: 1978 HEPATITIS C SCREENING HEPATITIS C SCREENING [facility] Start: 1978 Hepatitis C screening Hepatitis C Screening [facility] Start: 1978 HIV SCREENING HIV SCREENING [facility] Start: 1978 HIV screening HIV Screening [facility] Start: 1978 Tdap Booster Tdap Booster [facility] Start: 1975 HIV screening HIV Test [facility] Start: 1960 Screening for malignant neoplasm of colon Colonoscopy [facility] CBC W Auto Different ial panel - Blood CBC + DIFF Lab Routine Encounter for therapeutic drug monitoring Brain aneurysm Malignant neoplasm of prostate (HCC) Seizure-like activity (HCC) 08/01/2023 12:16 PM EST [facility] Work Phone: End: 11-18-2024 CBC W Auto Differential panel - Blood CBC + DIFF Lab STAT 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) Every 3 weeks for 6 Occurrences starting 11/19/2023 until 11/18/2024 [facility] Work Phone: Comment on above: Every 3 weeks for 6 Occurrences starting 11/19/2023 until 11/18/2024 End: 02-09-2025 CBC W Auto Differential panel - Blood COMPLETE BLOOD COUNT AND DIFFERENTIAL Lab Routine 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) Every 3 weeks for 6 Occurrences starting 02/10/2024 until 02/09/2025 [facility] Work Phone: Comment on above: Every 3 weeks for 6 Occurrences starting 02/10/2024 until 02/09/2025 End: 03-10-2025 CBC W Auto Differential panel - Blood COMPLETE BLOOD COUNT AND DIFFERENTIAL Lab Routine 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) Every other week for 26 Occurrences starting 03/10/2024 until 03/10/2025 [facility] Comment on above: Every other week for 26 Occurrences star ting 03/10/2024 until 03/10/2025 End: 08-06-2025 CBC W Auto Differential panel - Blood COMPLETE BLOOD COUNT AND DIFFERENTIAL Lab STAT 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) Once per week for 30 Occurrences starting 08/06/2024 until 08/06/2025 [facility] Work Phone: Comment on above: Once per week for 30 Occurrences startin g 08/06/2024 until 08/06/2025 Chronic hepatitis differentiation between hepatitis B and C virus panel - Serum or Plasma HEP REMOTE PANEL BL Lab Routine 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) 01/06/2024 2:12 PM EDT [facility] Cobalamin (Vitamin B 12) [Mass/volume] in Serum or Plasma VITAMIN B12 BLOOD Lab Routine Encounter for therapeutic drug monitoring Brain aneurysm Malignant neoplasm of prostate (HCC) Seizure-like activity (HCC) 08/01/2023 12:16 PM EST [facility] Work Phone: Comprehensive metabo lic 2000 panel - Serum or Plasma COMP METABOLIC PANEL Lab Routine Encounter for therapeutic drug monitoring Brain aneurysm Malignant neoplasm of prostate (HCC) Seizure-like activity (HCC) 08/01/2023 12:16 PM EST [facility] Work Phone: End: 11-18-2024 Comprehensive metabolic 2000 panel - Serum or Plasma COMP METABOLIC PANEL Lab STAT 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) Every 3 weeks for 6 Occurrences starting 11/19/2023 until 11/18/2024 [facility] Work Phone: Comment on above: Every 3 weeks for 6 Occurrences starting 11/19/2023 until 11/18/2024 End: 02-09-2025 Comprehensive metabolic 2000 panel - Serum or Plasma COMPREHENSIVE METABOLIC PANEL Lab Routine 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) Every 3 weeks for 6 Occurrences starting 02/10/2024 until 02/09/2025 [facility] Comment on above: Every 3 weeks for 6 Occurrences starting 02/10/2024 until 02/09/2025 End: 03-10-2025 Comprehensive metabolic 2000 panel - Serum or Plasma COMPREHENSIVE METABOLIC PANEL Lab Routine 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) Every other week for 26 Occurrences starting 03/10/2024 until 03/10/2025 [facility] Comment on above: Every other week for 26 Occurrences star ting 03/10/2024 until 03/10/2025 End: 08-06-2025 Comprehensive metabolic 2000 panel - Serum or Plasma COMPREHENSIVE METABOLIC PANEL Lab STAT 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) Once per month for 15 Occurrences starting 08/06/2024 until 08/06/2025 [facility] Comment on above: Once per month for 15 Occurrences starti ng 08/06/2024 until 08/06/2025 End: 03-10-2025 Cortisol [Mass/volume] in Serum or Plasma CORTISOL, SERUM Lab Routine 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) Every other week for 26 Occurrences starting 03/10/2024 until 03/10/2025 [facility] Work Phone: Comment on above: Every other week for 26 Occurrences star ting 03/10/2024 until 03/10/2025 End: 03-12-2025 CT Chest W contrast IV CT CHEST W IVCON Radiology Routine Malignant neoplasm of unspecified part of unspecified bronchus or lung (HCC) 1 Occurrences starting 02/11/2024 until 03/12/2025 [facility] Comment on above: 1 Occurrences starting 02/11/2024 until 03/12/2025 CT Chest W contrast IV CT CHEST W IVCON Radiology Routine Malignant neoplasm of unspecified part of unspecified bronchus or lung (HCC) 02/26/2024 11:15 AM EDT [facility] Work Phone: CT Guidance for radiation treatment of Unspecified body region CT SIM PLANNING RADIATION ONCOLOGY Radiology Routine 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) Ordered: 11/14/2023 [facility] Work Phone: Comment on above: Ordered: 11/14/2023 End: 08-30-2024 CTA HEAD WO/W IVCON CTA HEAD WO/W IVCON Radiology Routine Brain aneurysm Malignant neoplasm of prostate (HCC) Seizure-like activity (HCC) Nonruptured cerebral aneurysm 1 Occurrences starting 08/01/2023 until 08/30/2024 [facility] Work Phone: Comment on above: 1 Occurrences starting 08/01/2023 until 08/30/2024 End: 08-30-2024 CTA NECK W IVCON CTA NECK W IVCON Radiology Routine Brain aneurysm Malignant neoplasm of prostate (HCC) Seizure-like activity (HCC) Aneurysm of vertebral artery (HCC) 1 Occurrences starting 08/01/2023 until 08/30/2024 [facility] Work Phone: Comment on above: 1 Occurrences starting 08/01/2023 until 08/30/2024 Guidance for percutaneous biopsy of Bone IR BONE BIOPSY Radiology Routine 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) Malignant neoplasm of prostate (HCC) Malignant neoplasm of unspecified part of unspecified bronchus or lung (HCC) Ordered: 06/04/2024 [facility] Comment on above: Ordered: 06/04/2024 End: 06-13-2025 PET+CT Guidance for localization of tumor of Skull base to mid-thigh-- W 18F-FDG IV NM PET/CT SKULL-THIGH SUBSEQUENT Radiology Routine 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) 1 Occurrences starting 05/14/2024 until 06/13/2025 [facility] Work Phone: Comment on above: 1 Occurrences starting 05/14/2024 until 06/13/2025 End: 11-05-2025 PET+CT Guidance for localization of tumor of Skull base to mid-thigh-- W 18F-FDG IV NM PET/CT SKULL-THIGH SUBSEQUENT Radiology Routine 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) 1 Occurrences starting 10/06/2024 until 11/05/2025 [facility] Work Phone: Comment on above: 1 Occurrences starting 10/06/2024 until 11/05/2025 PET+CT Guidance for localization of tumor of Skull base to mid-thigh-- W 18F-FDG IV NM PET/CT SKULL-THIGH SUBSEQUENT Radiology Routine 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) 11/08/2024 12:07 PM [facility] Work Phone: End: 12-12-2025 PET+CT Guidance for localization of tumor of Skull base to mid-thigh-- W [id number] IV NM PET/CT SKULL-THIGH SUBSEQUENT Radiology Routine Malignant neoplasm of unspecified part of unspecified bronchus or lung (HCC) 1 Occurrences starting 11/12/2024 until 12/12/2025 [facility] Work Phone: Comment on above: 1 Occurrences starting 11/12/2024 until 12/12/2025 Thyrotropin [Units/volume] in Serum or Plasma TSH BLD Lab Routine Encounter for therapeutic drug monitoring Brain aneurysm Malignant neoplasm of prostate (HCC) Seizure-like activity (HCC) 08/01/2023 12:16 PM [facility] Work Phone: End: 03-10-2025 Thyrotropin [Units/volume] in Serum or Plasma THYROID STIMULATING HORMONE Lab Routine 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) Every other week for 26 Occurrences starting 03/10/2024 until 03/10/2025 [facility] Comment on above: Every other week for 26 Occurrences star ting 03/10/2024 until 03/10/2025 UA DIP B/O UA DIP B/O Lab R outine Acute right-sided thoracic back pain Ordered: 05/19/2024 [facility] Work Phone: Comment on above: Ordered: 05/19/2024 End: 12-16-2025 XR Chest PA and Lateral XR CHEST 2V FRONTAL/LAT Radiology Routine Subacute cough Malignant neoplasm of lung, unspecified laterality, unspecified part of lung (HCC) Sinobronchitis 1 Occurrences starting 11/16/2024 until 12/16/2025 [facility] Work Phone: Comment on above: 1 Occurrences starting 11/16/2024 until 12/16/2025 XR Chest PA and Lateral XR CHEST 2V FRONTAL/LAT Radiology Routine Subacute cough 11/16/2024 12:11 PM EDT [facility] End: 07-18-2025 XR Femur - left AP and Lateral XR FEMUR GENERAL 2V AP/LAT LEFT Radiology Routine 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) 1 Occurrences starting 06/18/2024 until 07/18/2025 [facility] Work Phone: Comment on above: 1 Occurrences starting 06/18/2024 until 07/18/2025 XR Femur - left AP a nd Lateral XR FEMUR GENERAL 2V AP/LAT LEFT Radiology Routine 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) 06/18/2024 9:54 AM EDT [facility] End: 02-16-2026 XR Lumbar spine 3 Views XR LUMBAR GENERAL 3V AP/LAT/L5-S1 Radiology Routine Cancer, metastatic to bone (HCC) 1 Occurrences starting 01/17/2025 until 02/16/2026 [facility] Work Phone: Comment on above: 1 Occurrences starting 01/17/2025 until 02/16/2026 XR Lumbar spine 3 Views XR LUMBA R GENERAL 3V AP/LAT/L5-S1 Radiology Routine Cancer, metastatic to bone (HCC) 01/17/2025 11:25 AM EDT [facility] Immunizations Immunization Date Immunization Notes Care Provider Fa gisselle 07-19-2024 influenza, seasonal, injectable Jose Anu [employer] SU[employer] WORKER.[employer] Work Phone: [facility] 11-10-2023 respiratory syncytia l virus (RSV) vaccine, bivalent (ABRYSVO) Jose Anu MINING SUPPORT WORKER.[facility] Work Phone: [facility] 09-02-2023 pneumococcal conjuga te (PCV20) vaccine, 20 valent (PREVNAR 20) Jose Anu MINING SUPPORT WORKER.[facility] Work Phone: [facility] Work Phone: 06-20-2023 influenza, injectabl e, quadrivalent, preservative free Jose Anu MINING SUPPORT WORKER.[facility] Work Phone: [facility] Work Phone: 06-20-2023 influenza virus vacc ine, unspecified formulation Roger Dorsey MD Work Phone: [facility] 07-30-2022 COVID-19 vaccine, ag e 12+ yr, bivalent (PFIZER-BIONTECH) Jose Anu MINING SUPPORT WORKER.[facility] Work Phone: [facility] Work Phone: 06-14-2022 influenza, injectabl e, quadrivalent, preservative free Jose Anu MINING SUPPORT WORKER.[facility] Work Phone: [facility] Work Phone: 10-09-2021 pneumococcal polysaccharide vaccine, 23 valent Jose Anu MINING SUPPORT WORKER.[facility] Work Phone: [facility] Work Phone: 09-11-2021 COVID-19 original vaccine, age 12+ yr, monovalent (PFIZER-BIONTECH - PURPLE TOP) Jose Anu MINING SUPPORT WORKER.[facility] Work Phone: [facility] Work Phone: 07-05-2021 influenza, injectabl e, quadrivalent, preservative free Jose Anu MINING SUPPORT WORKER.[facility] Work Phone: [facility] Work Phone: 12-11-2020 COVID-19 original vaccine, age 12+ yr, monovalent (PFIZER-BIONTECH - PURPLE TOP) Jose Anu MINING SUPPORT WORKER.[employer] Work Phone: [facility] Work Phone: 11-20-2020 COVID-19 original vaccine, age 12+ yr, monovalent (PFIZER-BIONTAlgorithmia - PURPLE TOP) Jose Anu MINING SUPPORT WORKER.[facility] Work Phone: [facility] Work Phone: 06-28-2020 influenza, injectabl e, quadrivalent, preservative free Jose Anu MINING SUPPORT WORKER.[facility] Work Phone: [facility] Work Phone: 07-07-2019 zoster vaccine recombinant Jose Anu MINING SUPPORT WORKER.[facility] Work Phone: [facility] Work Phone: 06-02-2019 influenza nasal, unspecified formulation Jose Anu MINING SUPPORT WORKER.[facility] Work Phone: [facility] Work Phone: 06-02-2019 influenza virus vacc ine, unspecified formulation Jose Anu MINING SUPPORT WORKER.[facility] Work Phone: [facility] 04-26-2019 Influenza, injectabl e, Madin Marlen Canine Kidney, preservative free, quadrivalent Joes Anu MINING SUPPORT WORKER.[facility] Work Phone: [facility] Work Phone: 04-26-2019 influenza, injectabl e, quadrivalent, contains preservative Jose Anu MINING SUPPORT WORKER.[facility] Work Phone: [facility] Work Phone: 04-15-2019 zoster vaccine recombinant Jose Anu MINING SUPPORT WORKER.[employer] Work Phone: [facility] Work Phone: 05-10-2018 influenza, injectabl e, quadrivalent, preservative free Jose Anu MINING SUPPORT WORKER.[facility] Work Phone: [facility] Work Phone: 05-09-2018 influenza nasal, unspecified formulation Jose Anu MINING SUPPORT WORKER.[employer] Work Phone: [facility] Work Phone: 05-09-2018 influenza virus vacc ine, unspecified formulation Jose Anu MINING SUPPORT WORKER.[employer] Work Phone: [facility] 05-09-2017 influenza nasal, unspecified formulation Jose Anu MINING SUPPORT WORKER.[employer] Work Phone: [facility] Work Phone: 05-09-2017 influenza virus vacc ine, unspecified formulation Jose Anu MINING SUPPORT WORKER.[employer] Work Phone: [facility] 04-24-2017 influenza, injectabl e, quadrivalent, preservative free Jose Anu MINING SUPPORT WORKER.[employer] Work Phone: [facility] Work Phone: 06-29-2016 tetanus toxoid, redu diane diphtheria toxoid, and acellular pertussis vaccine, adsorbed Jose Anu MINING SUPPORT WORKER.[facility] Work Phone: [facility] Work Phone: 06-08-2016 tetanus toxoid, adsorbed Ros a Anu MINING SUPPORT WORKER.[facility] Work Phone: [facility] Work Phone: 05-09-2016 influenza virus vacc ine, unspecified formulation Jose Anu MINING SUPPORT WORKER.[employer] Work Phone: [facility] 05-09-2016 influenza, high dose seasonal, preservative-free Jose Anu MINING SUPPORT WORKER.[employer] Work Phone: [facility] Work Phone: 07-25-2015 influenza, high dose seasonal, preservative-free Jose Anu MINING SUPPORT WORKER.[employer] Work Phone: [facility] Work Phone: 06-27-2015 influenza nasal, unspecified formulation Jose Anu MINING SUPPORT WORKER.[employer] Work Phone: [facility] Work Phone: 06-27-2015 influenza virus vacc ine, unspecified formulation Jose Anu MINING SUPPORT WORKER.[employer] Work Phone: [facility] 06-14-2014 influenza nasal, unspecified formulation Jose Anu MINING SUPPORT WORKER.[employer] Work Phone: [facility] Work Phone: 06-14-2014 influenza virus vacc ine, unspecified formulation Jose Anu MINING SUPPORT WORKER.[employer] Work Phone: [facility] 07-09-2013 influenza nasal, unspecified formulation Jose Anu MINING SUPPORT WORKER.[employer] Work Phone: [facility] Work Phone: 07-09-2013 influenza virus vacc ine, unspecified formulation Jose Anu MINING SUPPORT WORKER.[employer] Work Phone: [facility] 10-15-2012 influenza nasal, unspecified formulation Jose Anu MINING SUPPORT WORKER.[employer] Work Phone: [facility] Work Phone: 10-15-2012 influenza virus vacc ine, unspecified formulation Jose Anu MINING SUPPORT WORKER.[employer] Work Phone: [facility] 11-09-2010 pneumococcal polysaccharide vaccine, [address] AZIZA ROBERTS MD [facility] Comment on above: Reason for Medicatio n: Other (see order comments) Payers Date Payer Category Payer Medicare (Managed Care) [employer] [place] [id number] 2024 Medicare [id number] 2024 Medicare [id number] 2022 Medicare [id number] 2019 Unknown [id number] 1998 Private Health Insurance [id number] 1998 Unknown HOSPITAL/MEDICAL GENERIC MEDICAL GENERIC [id number] 1998-Present [phone] [id number] [place] [address] Indemnity [id number] 1998 Unknown [id number] Social History Date Type Detail Facility Start: 01-10-2023 End: 05-19-2024 Ex-smoker (finding) [facility]igned At [facility] Start: 09-08-1982 End: 09-08-2017 History of tobacco use Current smoker [facility] Work Phone: Start: 09-08-1982 End: 09-08-2017 History of tobacco use Cigarette Smoker [facility] Work Phone: Start: 01-10-2023 End: 01-16-2025 Cigarettes smoked current (pack per day) - Reported 2 [facility] Work Phone: Start: 01-10-2023 End: 05-19-2024 Tobacco use and exposure Smokeless tobacco non-user [facility] Work Phone: Start: 01-10-2023 End: 02-28-2025 Alcohol intake Current non-drinker of alcohol (finding) [facility] Start: 01-10-2023 Tobacco Comment Wants to quit. Tried quitting on several occasions. [facility] Start: 07-07-2014 Alcohol Comment occasional den ies use 06/2014 [facility] Start: 1960 Sex Assigned At Not on file [facility] Start: 01-10-2023 End: 04-14-2023 Tobacco use panel [facility] Work Phone: Adult Depression Screening Assessment 0 [facility] Work Phone: Tobacco smoking stat us [place] Tobacco smoking consumption unknown [facility] Has the [employer], [place] threatened to shut off services in your home in past 12Mo No [facility] Are you now , , , , never or living with a partner? [facility] How often to you hav e a drink containing alcohol? Never [facility] How hard is it for y ou to pay for the very basics like food, housing, medical care, and heating Somewhat hard [facility] (I/We) worried wheth er (my/our) food would run out before (I/we) got money to buy more. Never true [facility] Functional Status Date Assessment Result Facility 01-16-2025 Total score [AUDIT-C] 0 01/17/20 7:49 AM EDT User, Evelin [facility] 01-16-2025 Within the last year , have you been humiliated or emotionally abused in other ways by your partner or ex-partner? No 01/16/2025 7:49 AM EDT UserEvelin No [facility] 01-16-2025 Within the last year , have you been afraid of your partner or ex-partner? No 01/16/2025 7:49 AM EDT User, Evelin No [facility] 01-16-2025 Within the last year , have you been raped or forced to have any kind of sexual activity by your partner or ex-partner? No 01/16/2025 7:49 AM EDT User, Evelin No [facility] 01-16-2025 Within the last year , have you been kicked, hit, slapped, or otherwise physically hurt by your partner or ex-partner? No 01/16/2025 7:49 AM EDT User, Joeybarront No [facility] 01-16-2025 How often to you hav e a drink containing alcohol? Never 01/16/2025 7:49 AM EDT UserEvelin Never [facility] 01-16-2025 Functional status Patient does n ot drink 01/16/2025 7:49 AM EDT UserEvelin Patient does not drink [facility] 01-16-2025 How often do you hav e 6 or more drinks on 1 occasion? Never 01/16/2025 7:49 AM EDT UserEvelin Never [facility] 06-20-2014 Are you deaf, or do you have serious difficulty hearing No 06/20/2014 2:30 PM EDT Adele Pitts LPN No [facility] 06-20-2014 Are you blind, or do you have serious difficulty seeing, even when wearing glasses No 06/20/2014 2:30 PM EDT Adele Pitts LPN No [facility] 06-20-2014 Do you have serious difficulty walking or climbing stairs No 06/20/2014 2:30 PM EDT Adele Pitts LPN No [facility] 06-20-2014 Do you have difficul ty dressing or bathing No 06/20/2014 2:30 PM EDT Adele Pitts LPN No [facility] 06-20-2014 Because of a physica l, mental, or emotional condition, do you have difficulty doing errands alone such as visiting a physician's office or shopping No 06/20/2014 2:30 PM EDT Adele Pitts LPN No [facility] Mental Status Date Assessment Result Facility 06-20-2014 Because of a physica l, mental, or emotional condition, do you have serious difficulty concentrating, remembering, or making decisions No 06/20/2014 2:30 PM EDT Adele Pitts LPN No [facility] Clinical Notes 12-05-2014 to 03-07-2025 Telephone Encounter - Naty Iqbal - 03/04/2025 2:36 PM EDTTelephone Encounter - Naty Iqbal - 03/04/2025 2:36 PM EDTTelephone Encounter - Makayla Mann LPN - 03/04/2025 1:40 PM EDT Note Date & Type Note Facility 03-07-2025 Note HNO ID: [id number] Author: BLAIR MICHAEL RT(Maira) Service: ? Author [...] PATIENT PRESENTS WITH AN IMPLANTABLE OR ATTACHED STAGE HAND: NA CREATININE: Creatinine Date Value Ref Range [...] 0815 PATIENT DISCHARGED TO: Ambulatory patient, left [place] department area. Is this a therapy: No [...] both Pet Scan and OV Naty Iqbal [facility] 03-04-2025 Miscellaneous Notes Spoke with spouse and [...] details. CECY Devi documented in this encounter [facility] 03-04-2025 Telephone encounter Note Can we get PET scan rescheduled now? [facility] 03-01-2025 Telephone encounter Note [facility] Mel Liao LPN [facility] 03-01-2025 Telephone encounter Note Prescription Refill Information [...] Rosa LPN March 01, 2025 8:31 AM [facility] 03-01-2025 Miscellaneous Notes Prescription Refill Information The [...] 2025 8:31 AM documented in this encounter [facility] 02-28-2025 Note [facility] 02-28-2025 History of Presen t illness Narrative [...] Jose Brennan APRN-NAY documented in this encounter [facility] 02-28-2025 Telephone encounter Note Referral paperwork has been completed. Just waiting until Dr. Dorsey returns for his signature before [facility]ing [facility] the [facility]. Mel Liao LPN [facility] 02-25-2025 Telephone encounter Note Spoke with patient and cancelled ov. [facility] with [facility] who stated we need to fax referral for new authorization. Naty Iqbal [facility] 02-25-2025 Telephone encounter Note Yes reschedule appt. We need to know if treatment is working , there is no sense seeing until we have that information. Bekah Rosa LPN [facility] 02-22-2025 Telephone encounter Note Waiting on Auth approval please advise if OV should be rescheduled. Patient was concerned moving out OV as he doesn't like going to long without being seen. Naty Iqbal [facility] 02-22-2025 Telephone encounter Note SOCIAL WORK FOLLOW [...] encounter for more details. CECY Devi T [facility] 02-22-2025 Telephone encounter Note SOCIAL WORK FOLLOW UP NOTE: [facility] Date of service: February 18, 2025 Chun Alcaraz is being seen for a follow up social work visit. Today's visit includes: spouse and patient TOPICS ADDRESSED: [facility] spoke with pt and his who report they have been receiving bills for recent PET scans. Pt is concerned about amount owed and reports he should have no co-pays or balance due as the [place] be [place] all [place]. [facility] reached out to financial department who reports pt's last [place] was authorized. [place]# [id number] valid dates 06/23/24 to 12/20/24. [place] encouraged pt and to contact radiology company [...] Care Team tab: Yes CECY Devi T [facility] 02-22-2025 Miscellaneous Notes SOCIAL WORK FOLLOW UP NOTE: [facility] Date of service: February 18, 2025 [...] reports pt's last [place] was [place]. [place]# [id number] valid dates 06/23/24 to 12/20/24. SW encouraged [...] Yes CECY Devi documented in this encounter [facility] 02-09-2025 Telephone encounter Note noted [facility] 02-09-2025 Miscellaneous Notes noted Hetal from [employer] [facility] calls and states that if nebulizer is unopened then it can be put back into medical supplies. Hetal Gomes, RN 2nd message left asking for a return call from a rep at [facility]. Patient returned the nebulizer kit that was dispensed to him 11/16/24. Called and left a message for Mango at the [facility] to ask what we are to do with kit. documented in this encounter [facility] 02-08-2025 Telephone encounter Note Hetal from [employer] [facility] calls and states that if nebulizer is unopened then it can be put back into medical supplies. Hetal Gomes RN [facility] 02-08-2025 Telephone encounter Note 2nd message left asking for a return call from a rep at [facility]. [facility] 02-04-2025 Telephone encounter Note Patient returned the nebulizer kit that was dispensed to him 11/16/24. Called and left a message for Mango at the [facility] to ask what we are to do with kit. [facility] 01-17-2025 History of Presen t illness Narrative [...] PATIENT PRESENTS WITH AN IMPLANTABLE OR ATTACHED STAGE HAND: No RADIOLOGY DEPARTMENT: General X-ray: Exam(s) Completed: Spine X-Ray(s): Lumbar AP / LAT / L5-S1 PERIPHERAL IV DATA: Not applicable SIGNED BY: Rick Kaufman January 17, 2025 11:14 AM documented in this encounter [facility] 01-17-2025 Note [facility] 01-17-2025 Note [facility] 01-17-2025 History of Presen t illness Narrative [...] appetite and constipation, for which he takes svpy-wdx-kncphtr stool softeners twice daily. He has a scheduled PET scan and a follow-up appointment with his oncologist on February 02. Recording using [employer] software for draft documentation of the visit was discussed with the patient/authorized employment program representative; all questions welcomed and answered. 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 - 11/10/2023 Primary Hypertension - 11/10/2023 Obesity, Class I, Bmi 30-34.9 - 01/10/2023 Insomnia Due to Medical Condition - 01/10/2023 Degeneration of Lumbar Or Lumbosacral Intervertebral Disc - 12/08/2014 Displacement of Lumbar Intervertebral Disc Without Myelopathy - 12/08/2014 Postlaminectomy Syndrome, Lumbar Region - 12/08/2014 Gerd (Gastroesophageal Reflux Disease) - 12/05/2014 Brain Aneurysm ([facility]) - 12/05/2014 Malignant Neoplasm of Prostate ([facility]) - 03/28/2014 Social History Tobacco Use Smoking [...] unspecified constipation type (K59.00) Chronic, managed with ahiq-jem-wywahzj stool softeners. Current regimen is insufficient. - [...] Jose Brennan APRN-NAY documented in this encounter [facility] 01-06-2025 History of Presen t illness Narrative [...] PATIENT PRESENTS WITH AN IMPLANTABLE OR ATTACHED STAGE HAND: NA CREATININE: Creatinine Date Value Ref Range [...] 0815 PATIENT DISCHARGED TO: Ambulatory patient, left [place] department area. Is this a therapy: No A Diagnostic radioactive procedure has taken place, with no further precautions necessary other than routine body substance precautions. More information regarding radiation safety can be found using this link: [email or web address] SIGNATURE: RT Hailee(R) PATIENT NAME: Chun Alcaraz DATE: March 07, 2025 TIME: 8:19 AM PAGER/CONTACT #: documented in this encounter [facility] 11-19-2024 Telephone encounter Note PATIENT NOTIFIED OF SAME. He feels like he is getting a little better. Antibiotics seem to be working. [facility] 11-19-2024 Miscellaneous Notes PATIENT NOTIFIED OF SAME. He feels like he is getting a little better. Antibiotics seem to be working. Please let him know the chest xray had no obvious pneumonia. Can we get an update with how he is feeling since starting on the doxycycline? Thanks! documented in this encounter [facility] 11-19-2024 Telephone encounter Note Please let him know the chest xray had no obvious pneumonia. Can we get an update with how he is feeling since starting on the doxycycline? Thanks! [facility] 11-16-2024 History of Presen t illness Narrative [...] PATIENT PRESENTS WITH AN IMPLANTABLE OR ATTACHED STAGE HAND: No RADIOLOGY DEPARTMENT: General X-ray: Exam(s) Completed: Chest X-Ray PERIPHERAL IV DATA: Not applicable SIGNED BY: Rick Kaufman November 16, 2024 12:04 PM documented in this encounter [facility] 11-16-2024 Note [facility] 11-16-2024 History of Presen t illness Narrative [...] notes that his family, including his son, bakaafce-qh-yjj, and grandson, have also been experiencing similar symptoms, with his grandson diagnosed with a sinus infection and his son having been intermittently sick since . 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[facility]) - 11/10/2023 Primary Hypertension - 11/10/2023 Obesity, Class I, Bmi 30-34.9 - 01/10/2023 Insomnia Due to Medical Condition - 01/10/2023 Degeneration of Lumbar Or Lumbosacral Intervertebral Disc - 12/08/2014 Displacement of Lumbar Intervertebral Disc Without Myelopathy - 12/08/2014 Postlaminectomy Syndrome, Lumbar Region - 12/08/2014 Gerd (Gastroesophageal Reflux Disease) - 12/05/2014 Brain Aneurysm - 12/05/2014 Malignant Neoplasm of Prostate ([facility]) - 03/28/2014 Social History Tobacco Use Smoking [...] The patient consented to the use of [employer] software for draft documentation of the visit consistent with [facility] s Notice of Privacy Practices. documented in this encounter [facility] 11-16-2024 Note [facility] 11-16-2024 Telephone encounter Note SOCIAL WORK FOLLOW UP NOTE: [facility] SW received forms for pt's Long-Term Disability. SW discussed forms with pt and completed. SW had physician review and sign and sent to [employer] this date. No other needs identified at this time. CECY Devi [facility] 11-16-2024 Miscellaneous Notes SOCIAL WORK FOLLOW UP NOTE: [facility] SW received forms for pt's Long-Term Disability. SW discussed forms with pt and completed. SW had physician review and sign and sent to [employer] this date. No other needs identified at this time. CECY Devi documented in this encounter [facility] 11-15-2024 Telephone encounter Note I called and spoke to Chun and scheduled him for PET Scan at [facility] for 01/24/25 11:30 am/12:30 pm and then follow-up with for 02/02/25 @ 2:20 PM Nancy Hilton [facility] 11-15-2024 Miscellaneous Notes I called and spoke to Chun and scheduled him for PET Scan at [facility] for 01/24/25 11:30 am/12:30 pm and then follow-up with for 02/02/25 @ 2:[address] PM [address] Dorsey aware. Advises follow up in 2mo with PET scan and OV 1 week later. Order pended. Please schedule and call patient with times or send MyChart message. [facility]yn Aguila [facility] FOLLOW-UP NOTE Patient identified by [...] November 12, 2024 documented in this encounter [facility] 11-12-[address] Dorsey aware. Advises follow up in 2mo with PET scan and OV 1 week later. Order pended. Please schedule and call patient with times or send MyChart message. Lauryn Aguila RN [facility] 11-12-2024 Telephone encounter Note [place] Care Coordination [...] appointment. He states a phone call or Ondax message is ok with that date/time. Patient verbalized when to seek Medical Attention and an understanding of after- hours phone number and process: Yes Care Coordination Plan: No further follow up needed at this time Brittani Aguila RN November 12, 2024 [facility] 11-11-2024 Note [facility] 11-11-2024 History of Presen t illness Narrative [...] squamous non small cell lung cancer per [place] pathology report ?progressive disease in spine, though [...] and plugged other PAST SURGICAL HISTORY OF [id number] shoulder scope bilateral right x 2 and left x 1 PAST SURGICAL HISTORY OF 200? knee scope bilateral PAST SURGICAL HISTORY OF 2010 laminectomy L4-L5 at [place] PAST SURGICAL HISTORY OF 2013 and remote [...] which included preparing to see the patient, [id number] patient care, completing clinical documentation, obtaining and/or [...] November 11, 2024 documented in this encounter [facility] 11-08-2024 History of Presen t illness Narrative [...] PATIENT PRESENTS WITH AN IMPLANTABLE OR ATTACHED STAGE HAND: No CREATININE: Creatinine Date Value Ref Range [...] 1102 PATIENT DISCHARGED TO: Ambulatory patient, left [place] department area. Is this a therapy: No A Diagnostic radioactive procedure has taken place, with no further precautions necessary other than routine body substance precautions. More information regarding radiation safety can be found using this link: [email or web address]-%20Diagnostic%20N uclear%20Medicine%20Procedures.p df SIGNATURE: EVELIO William) PATIENT NAME: Chun Alcaraz DATE: November 08, 2024 TIME: 11:07 AM PAGER/CONTACT #: documented in this encounter [facility] 11-08-2024 Note HNO ID: [id number] Author: PETER ROBERTSON RT(R) Service: Nuclear Medicine [...] PATIENT PRESENTS WITH AN IMPLANTABLE OR ATTACHED STAGE HAND: No CREATININE: Creatinine Date Value Ref Range [...] DIAGNOSTIC CT PERFORMED: No IV SITE: Ambulatory: [place] only - direct IV injection in the Right antecubital site POST EXAM PIV STATUS: Discontinued PROCEDURE TYPE: NM INJECT: PET/CT BODY SCAN. 14.9 mCi F18 FDG. No other medications given.. ADMINISTRATION TIME: 1102 PATIENT DISCHARGED TO: Ambulatory patient, left [place] department area. Is this a therapy: No A Diagnostic radioactive procedure has taken place, with no further precautions necessary other than routine body substance precautions. More information regarding radiation safety can be found using this link: [email or web address] [email or web address]-% 20Diagnostic%20Nuclear%20Medicin e%20Procedures.pdf SIGNATURE: RT Nataliia(R) PATIENT NAME: Chun Alcaraz DATE: November 08, 2024 TIME: 11:07 AM PAGER/CONTACT #: [facility] 11-04-2024 Telephone encounter Note Refill req received from pharmacy for prednisone 10 mg. Makayla Mann LPN [facility] 11-04-2024 Miscellaneous Notes Refill req received from pharmacy for prednisone 10 mg. Makayla Mann LPN documented in this encounter [facility] 11-03-2024 Note [facility] 11-03-2024 History of Presen t illness Narrative [...] and plugged other PAST SURGICAL HISTORY OF [id number] shoulder scope bilateral right x 2 and left x 1 PAST SURGICAL HISTORY OF 200? knee scope bilateral PAST SURGICAL HISTORY OF 2010 laminectomy L4-L5 at [place] PAST SURGICAL HISTORY OF 2013 and remote [...] which included preparing to see the patient, [id number] patient care, completing clinical documentation, obtaining and/or reviewing separately obtained history, counseling and educating the patient/family/caregiver, ordering medications, tests, or procedures, communicating with other HCPs (not separately reported), independently interpreting results (not separately reported), communicating results to the patient/family/caregiver, and care coordination (not separately reported). Care coordination, discussion of new therapyt Electronically Signed: Roger Dorsey MD November 03, 2024 documented in this encounter [facility] 10-21-2024 Telephone encounter Note Spoke with Dr. [...] and agreeable with plan. Lauryn Aguila RN [facility] Work Phone: 10-21-2024 Miscellaneous Notes Spoke with [...] Lauryn Aguila RN Care Coordination Triage Note [facility] Situation: Patient reports Cough/Respiratory Concerns/SOB Background: Disease, [...] Sending high priority. documented in this encounter [facility] 10-21-2024 Telephone encounter Note Care Coordination Triage Note [facility] Situation: Patient reports Cough/Respiratory Concerns/SOB Background: Disease, [...] Aguila RN October 21, 2024 8:54 AM [facility] 10-21-2024 Telephone encounter Note Patient called to cancel lab and treatment (d15) today. States he is running fever, chest is raw and breathing issues. States everyone at home has been sick. Appointment canceled. Unable to reach CC. Sending high priority. [facility] Work Phone: 10-07-2024 Telephone encounter Note Spoke with pt and 6 month FU booked. Jayshree Chadwick LPN [facility] 10-07-2024 Miscellaneous Notes Spoke with pt and [...] Germaine Roberson LPN. documented in this encounter [facility] 10-07-2024 Telephone encounter Note 6 month follow up in January still needs scheduled--see her July progress note The following approved medication requests have been transmitted electronically. Requested Prescriptions Signed Prescriptions Disp Refills amitriptyline (ELAVIL) 25 mg tablet 30 tablet 3 Sig: Take 1 tablet by mouth daily at bedtime. for headache Authorizing Provider: REJI MALDONADO MD [facility] 10-06-2024 Telephone encounter Note Patient has been [...] Please advise. Thank you. Germaine Roberson LPN. [facility] 10-06-2024 Note [facility] 10-06-2024 History of Presen t illness Narrative [...] and plugged other PAST SURGICAL HISTORY OF [id number] shoulder scope bilateral right x 2 and left x 1 PAST SURGICAL HISTORY OF 200? knee scope bilateral PAST SURGICAL HISTORY OF 2010 laminectomy L4-L5 at [place] PAST SURGICAL HISTORY OF 2013 and remote [...] which included preparing to see the patient, [id number] patient care, completing clinical documentation, obtaining and/or reviewing separately obtained history, counseling and educating the patient/family/caregiver, ordering medications, tests, or procedures, communicating with other HCPs (not separately reported), independently interpreting results (not separately reported), communicating results to the patient/family/caregiver, and care coordination (not separately reported). Care coordination, discussion of new therapyt Electronically Signed: Roger Dorsey MD October 06, 2024 documented in this encounter [facility] 09-23-2024 Telephone encounter Note Pt stated he has been a little nauseous lately. Mentioned he only had 3 pills left of his prochlorperazine (COMPAZINE) 10 mg tablets. If agreeable, can you send new order to [facility] pharmacy in [place]. Elisabeth George RN [facility] 09-23-2024 Miscellaneous Notes Pt stated he has been a little nauseous lately. Mentioned he only had 3 pills left of his prochlorperazine (COMPAZINE) 10 mg tablets. If agreeable, can you send new order to [facility] pharmacy in [place]. Elisabeth George RN documented in this encounter [facility] 09-13-2024 Telephone encounter Note Per Dr. Dorsey, he is ok with patient receiving Cortisone injections. Lauryn Aguila RN Call to Dr. Landry per phone/ext provided. Detailed message left with patient information and above message to be given to Dr. Landry. Provided my contact ph # if further questions. Lauryn Aguila RN [facility] Work Phone: 09-13-[address] Dorsey, he is ok with patient receiving Cortisone injections. Lauryn Aguila RN Call to Dr. Landry per phone/ext provided. Detailed message left with patient information and above message to be given to Dr. Landry. Provided my contact ph # if further questions. Lauryn Aguila, RN SOCIAL WORK FOLLOW UP NOTE: [facility] September 09, 2024 SW spoke with pt this date, pt asked if SW would relay a message to Dr. Alcantara. Pt reports Dr. Landry at [facility] is wanting pt to begin cortisone injections in his R hip but would like to speak to Dr. Alcantara for his opinion on this prior to beginning treatment. Dr. Landry can be reached at [phone] ext. [phone]. Thank you, KHUSHBOO Devi-Deisy documented in this encounter [facility] 09-09-2024 Telephone encounter Note SOCIAL WORK FOLLOW UP NOTE: [facility] September 09, 2024 SW spoke with pt this date, pt asked if SW would relay a message to Dr. Alcantara. Pt reports Dr. Landry at [facility] is wanting pt to begin cortisone injections in his R hip but would like to speak to Dr. Alcantara for his opinion on this prior to beginning treatment. Dr. Landry can be reached at [phone] ext. [phone]. Thank you, CECY Devi [facility] 09-09-2024 Note [facility] 09-09-2024 History of Presen t illness Narrative [...] overlap with prior RT [facility] [place] biopsy material negative for actionable mutation. Interval Hx: More fatigued than with previous regimen. Otherwise, doing well. Denies new issues. Pain has improved. Denies recent illness. No fevers. No new aches or pains. Occasional nausea. No changes in bowel or bladder habits. No bleeding. CLINICAL IMPRESSION: Stage III non squamous non small cell lung cancer per [place] pathology report ?progressive disease in spine, though [...] and plugged other PAST SURGICAL HISTORY OF [id number] shoulder scope bilateral right x 2 and left x 1 PAST SURGICAL HISTORY OF 200? knee scope bilateral PAST SURGICAL HISTORY OF 2010 laminectomy L4-L5 at [place] PAST SURGICAL HISTORY OF 2013 and remote [...] HEART: RRR EXTREMITIES: no edema Karon Conte APRN.COLOR STRAINING BAG WASHER I spent a total of 30 minutes on the date of the service which included preparing to see the patient, [id number] patient care, completing clinical documentation, and counseling [...] of this patient. documented in this encounter [facility] 08-16-2024 Telephone encounter Note Prescription Refill Information [...] Weeks LPN August 16, 2024 12:48 PM [facility] 08-16-2024 Miscellaneous Notes Prescription Refill Information The [...] 2024 12:48 PM documented in this encounter [facility] 08-13-2024 Telephone encounter Note CYCLE 1/DAY 1 [...] after hours number protocol. Brittani Aguila RN [facility] Work Phone: 08-13-2024 Miscellaneous Notes CYCLE 1/DAY [...] Brittani Aguila RN documented in this encounter [facility] 08-11-2024 Telephone encounter Note Done. Lauryn Aguila RN [facility] Work Phone: 08-11-2024 Miscellaneous Notes Done. Lauryn Aguila RN Patient education completed today. Verified that he has compazine and Zofran at home for nausea. Patient mentioned that Zofran gives him headaches and he does not use for that reason. Lauryn Aguila RN Discussed above with Dr. Dorsey as he has Zofan as pre-med for Abraxane. Per Dr. Dorsey, ok to omit Zofran from [facility] order and no need to add in something else. Lauryn Aguila RN documented in this encounter [facility] 08-11-2024 Telephone encounter Note Patient education completed today. Verified that he has compazine and Zofran at home for nausea. Patient mentioned that Zofran gives him headaches and he does not use for that reason. Lauryn Aguila RN Discussed above with Dr. Dorsey as he has Zofan as pre-med for Abraxane. Per Dr. Dorsey, ok to omit Zofran from [facility] order and no need to add in something else. Lauryn Aguila RN [facility] 08-11-2024 Note [facility] 08-11-2024 History of Presen t illness Narrative [...] Brittani Aguila RN documented in this encounter [facility] 08-06-2024 Telephone encounter Note Spoke with patient and scheduled chemo ed. Scheduled first 3 cycles of chemo and chemo start email sent. Patient already authorized through the [place]. Hetal Moore [facility] 08-06-2024 Miscellaneous Notes Spoke with patient and scheduled chemo ed. Scheduled first 3 cycles of chemo and chemo start email sent. Patient already authorized through the [place]. Hetal Moore Start Abraxane once approved Chemo edu CBC/CMP D1 CBC on D8 and D15 CBC/CMP/OV prior to C2. Okay to alternate OV's with QUALITY MANAGEMENT NURSE documented in this encounter [facility] 08-06-2024 Telephone encounter Note Start Abraxane once approved Chemo edu CBC/CMP D1 CBC on D8 and D15 CBC/CMP/OV prior to C2. Okay to alternate OV's with QUALITY MANAGEMENT NURSE [facility] 08-06-2024 Telephone encounter Note Met with patient. Patient was given a folder with abraxane information. Discussed common side effects. Patient is unsure if he has any antiemetics at home so he will check and inform the nurse on this chemo education call. Deborah Domínguez RN [facility] 08-06-2024 Miscellaneous Notes Met with patient. Patient was given a folder with abraxane information. Discussed common side effects. Patient is unsure if he has any antiemetics at home so he will check and inform the nurse on this chemo education call. Deborah Domínguez RN documented in this encounter [facility] 08-06-2024 Note [facility] 08-06-2024 History of Presen t illness Narrative [...] squamous non small cell lung cancer per [place] ?progressive disease in spine, though [...] and plugged other PAST SURGICAL HISTORY OF [id number] shoulder scope bilateral right x 2 and left x 1 PAST SURGICAL HISTORY OF 200? knee scope bilateral PAST SURGICAL HISTORY OF 2010 laminectomy L4-L5 at [place] PAST SURGICAL HISTORY OF 2013 and remote [...] which included preparing to see the patient, [id number] patient care, completing clinical documentation, obtaining and/or reviewing separately obtained history, counseling and educating the patient/family/caregiver, ordering medications, tests, or procedures, communicating with other HCPs (not separately reported), independently interpreting results (not separately reported), communicating results to the patient/family/caregiver, and care coordination (not separately reported). Care coordination, discussion of new therapyt Electronically Signed: Roger Dorsey MD August 06, 2024 documented in this encounter [facility] 08-03-2024 Note [facility] 08-03-2024 History of Presen t illness Narrative POPULATION HEALTH NAVIGATION OUTREACH Action/ ANNUAL MEDICARE WELLNESS EXAM Reason for Outreach Care Gap/HCC or Scheduling Wellness Visits Care Gaps due: Medicare Annual Wellness Visit Patient Contacted: Unable or unnecessary to reach patient: Left message MyChart message sent Navigation Signature: Manda Taylor MA August 03, 2024 7:37 AM documented in this encounter [facility] 07-30-2024 Telephone encounter Note Received. Placed on providers desk. Deborah Domínguez RN [facility] 07-30-2024 Miscellaneous Notes Received. Placed on providers desk. Deborah Domínguez RN Contacted Mary Gatito in [place]cology at the [place], [id number]. There was no answer, a message was left requesting her to fax the [facility] [place] testing results again. Deborah Domínguez RN documented in this encounter [facility] 07-30-2024 Telephone encounter Note Contacted Mary Gatito in [place] at the [place], [id number]. There was no answer, a message was left requesting her to fax the [facility] [place] testing results again. Deborah Domínguez RN [facility] 07-19-2024 Note [facility] 07-19-2024 History of Presen t illness Narrative [...] Jose Brennan APRN-NAY documented in this encounter [facility] 07-15-2024 Telephone encounter Note Mary from [facility] [place] calling. She has the results of the [facility] testing and will send copy to me. She was given my email and fax #. Lauryn Aguila RN Received. Report will be shared with Dr. Dorsey. Lauryn Aguila RN [facility] Work Phone: 07-15-2024 Miscellaneous Notes Mary from [facility] [place] calling. She has the results of the [facility] testing and will send copy to me. She was given my email and fax #. Lauryn Aguila RN Received. Report will be shared with Dr. Dorsey. Lauryn Aguila RN documented in this encounter [facility] 06-28-2024 Note [facility] 06-28-2024 History of Presen t illness Narrative [...] develops new symptoms. documented in this encounter [facility] 06-28-2024 Nurse Note Radiation Therapy - Patient Education Note PATIENT NAME: Chun Alcaraz PATIENT June 28, 2024 [facility] FACILITY/LOCATION: [place] READINESS TO LEARN Cognitive Ability: Alert and [...] need for social work, van service, and account analyst. Patient has an Onbody or Implanted device: No Signed by: Jessie Sesay RN [facility] 06-28-2024 Nurse Note Radiation Therapy - Patient Education Note PATIENT NAME: Chun Alcaraz PATIENT June 28, 2024 [facility] FACILITY/LOCATION: [place] READINESS TO LEARN Cognitive Ability: Alert and [...] on Department phone list, Esophagitis/Mucositis, Fatigue, and [place] instructions, XRT sheet and Aquaphor handout.. Referral (recommendation): None, Pt denied need for social work, van service, and account analyst. Patient has an Onbody or Implanted device: No Signed by: Jessie Sesay RN documented in this encounter [facility] 06-23-2024 Note [facility] 06-23-2024 History of Presen t illness Narrative [...] squamous non small cell lung cancer per [place] pathology report ?progressive disease in spine, though report . His diffuse body pain is not from spine lesion, possibly this is CPI related Biopsy proven stage IV adenocarcinoma lung. RECOMMENDATION/PLAN: 1. . Stop durvalumab 2. Possible RT to T2, pt to see Dr Stoner next week. 3. Pursuing molecular testing of biopsy material at [place] Written and verbal health teaching given to [...] and plugged other PAST SURGICAL HISTORY OF [id number] shoulder scope bilateral right x 2 and left x 1 PAST SURGICAL HISTORY OF 200? knee scope bilateral PAST SURGICAL HISTORY OF 2010 laminectomy L4-L5 at [place] PAST SURGICAL HISTORY OF 2014 and remote [...] which included preparing to see the patient, [id number] patient care, completing clinical documentation, obtaining and/or reviewing separately obtained history, counseling and educating the patient/family/caregiver, ordering medications, tests, or procedures, communicating with other HCPs (not separately reported), independently interpreting results (not separately reported), communicating results to the patient/family/caregiver, and care coordination (not separately reported). Electronically Signed: Roger Dorsey MD June 23, 2024 documented in this encounter [facility] 06-23-2024 Nurse Note Radiation Therapy - Nursing Note (Follow-up) PATIENT NAME: Chun Alcaraz PATIENT June 23, 2024 [facility] FACILITY/LOCATION: [place] Reason for visit: Follow up. Subjective Data finished this round of steroids last fri, this time pain was gone was back to my normal back pain only but now that he finished the pain came right back on friday Additional Data Do you want to see a Family Life Counselor? No Nursing Assessment Fatigue: worse when in [...] areas noted. SIGNED by: Haleigh Ortega RN [facility] 06-23-2024 Nurse Note Radiation Therapy - Nursing Note (Follow-up) PATIENT NAME: Chun Alcaraz PATIENT June 23, 2024 [facility] FACILITY/LOCATION: [place] Reason for visit: Follow up. Subjective Data finished this round of steroids last fri, this time pain was gone was back to my normal back pain only but now that he finished the pain came right back on friday Additional Data Do you want to see a Family Life Counselor? No Nursing Assessment Fatigue: worse when in [...] Haleigh Ortega RN documented in this encounter [facility] 06-23-2024 Note [facility] 06-23-2024 History of Presen t illness Narrative [...] that other personnel such as radiation therapists, city detective, and physicists will participate in planning and delivery of radiation treatment. Permanent tattoo freeman will be placed to aid with positioning for daily treatment and the patient consented. Patient will have a simulation procedure within a week. Thank you very much for allowing us to participate in his care. Signed by: Vimal Stoner MD cc: Jose Brennan [address] [place] [address] Roger Dorsey documented in this encounter [facility] 06-18-2024 Telephone encounter Note Mary returned call. She will order [facility] testing and make a community referral for patient to see Dr. Stoner for possible treatment. Lauryn Aguila RN [facility] Work Phone: 06-18-2024 Miscellaneous Notes Mary returned call. She will order [facility] testing and make a community referral for patient to see Dr. Stoner for possible treatment. Lauryn Aguila RN [facility] Care Coordination FOLLOW-UP NOTE Patient identified by name and date of . YES Call to Mary Mederos, [facility] at the [place]. Left message for her to return my call. [phone] Summary: (Reason for follow-up) Dr. Dorsey asked [...] Pursuing molecular testing of biopsy material at [place] Care Coordination Plan: Will await return phone call back from Mary. Brittani Aguila RN June 18, 2024 documented in this encounter [facility] 06-18-2024 Telephone encounter Note [facility] FOLLOW-UP NOTE Patient identified by name and date of . YES Call to Mary Mederos, [facility]cology at the [place]. Left message for her to return my call. [phone] [id number] Summary: (Reason for follow-up) Dr. Dorsey asked [...] Pursuing molecular testing of biopsy material at [place] Care Coordination Plan: Will await return phone call back from Mary. Brittani Aguila RN June 18, 2024 [facility] 06-18-2024 History of Presen t illness Narrative [...] PATIENT PRESENTS WITH AN IMPLANTABLE OR ATTACHED STAGE HAND: No RADIOLOGY DEPARTMENT: General X-ray: Exam(s) Completed: Lower Extremity X-Ray(s): Femur, Left PERIPHERAL IV DATA: Not applicable SIGNED BY: RT Latosha(R) June 18, 2024 9:42 AM documented in this encounter [facility] 06-18-2024 Note [facility] 06-18-2024 Note [facility] 06-18-2024 History of Presen t illness Narrative [...] squamous non small cell lung cancer per [place] pathology report ?progressive disease in spine, though report . His diffuse body pain is not from spine lesion, possibly this is CPI related Biopsy proven stage IV adenocarcinoma lung. RECOMMENDATION/PLAN: 1. . Stop durvalumab 2. Possible RT to T2, pt to see Dr Stoner next week. 3. Pursuing molecular testing of biopsy material at [place] 4.plain films left femur Written and verbal [...] and plugged other PAST SURGICAL HISTORY OF [id number] shoulder scope bilateral right x 2 and left x 1 PAST SURGICAL HISTORY OF 200? knee scope bilateral PAST SURGICAL HISTORY OF 2010 laminectomy L4-L5 at [place] PAST SURGICAL HISTORY OF 2013 and remote [...] which included preparing to see the patient, [id number] patient care, completing clinical documentation, obtaining and/or reviewing separately obtained history, counseling and educating the patient/family/caregiver, ordering medications, tests, or procedures, communicating with other HCPs (not separately reported), independently interpreting results (not separately reported), communicating results to the patient/family/caregiver, and care coordination (not separately reported). Electronically Signed: Roger Dorsey MD June 18, 2024 documented in this encounter [facility] 06-17-2024 Telephone encounter Note Spoke with [place]. They are faxing referral that is good until 11/18/24 and a form that will need filled out when new auths are needed for patients. Will need to make copies. [facility] Work Phone: 06-17-2024 Miscellaneous [facility] that [facility] until 11/18/24 and a form that will need filled out when new auths are needed for patients. Will need to make copies. Lvm for Rosalva Bowles at the [place] stating we need a new referral put in for this patient. When she calls back advise patient has been seen multiple times since the referral has as well. Naty Iqbal documented in this encounter [facility] 06-11-2024 Telephone encounter Note Scheduled as directed. Hetal Moore [facility] 06-11-2024 Miscellaneous Notes Scheduled as directed. Hetal [...] during business hours: Did you contact your Evaporator Repairer/Provider? Yes, told to present to emergency department Patient with any new symptom issues: No Psychosocial Risk Factors: None COPIED FROM ED NOTE 06/10/24: ED course: I personally performed a history and physical examination the patient and discussed management with the resident physician/PA/QUALITY MANAGEMENT NURSE. I reviewed the resident/PA/QUALITY MANAGEMENT NURSE's note and agree with documented findings and plan of care, unless otherwise listed above. I supervised procedures performed by resident physician/PA/QUALITY MANAGEMENT NURSE. EKG was normal sinus rhythm. CBC CMP [...] Patient reminded of her follow-up appointment with [facility] provider, Dr. Dorsey on 06/21/24: Offered patient sooner appointment, he needs to check his calendar and call back in . Next Evaporator Repairer outreach with patient scheduled? No, call as needed Discussed Patient had bone biopsy on 06/09/24 and results still pending. States the Oxycodone is helping a little bit; the dose pack that Dr. Dorsey helped the most, can I have more of those? Discussed above with Karon Conte, COLOR STRAINING BAG WASHER and Rx sent to [facility]. PATIENT EDUCATION/REINFORCEMENT Patient verbalizes understanding of when to seek Medical Attention? YES Patient verbalizes understanding of after hours and weekend phone number? YES Patient verbalizes understanding of next outreach appointment? YES Brittani Aguila RN documented in this encounter [facility] 06-11-2024 Telephone encounter Note PSS: please schedule ED f/u OV with Dr. Dorsey on 06/18/24 at 910am. Note to include bone biopsy 06/09. No need to call patient. Lauryn Aguila RN [facility] Work Phone: 06-11-2024 Telephone encounter Note EMERGENCY ROOM CALL BACK Today's date: June 11, 2024 Patient identified by name and date of . YES Primary Cancer Diagnosis: NSCLC Reason for Emergency Room Visit: Myalgias Time of day presented to Emergency Room 1353 If Fri-Friday during business hours: Did you contact your Evaporator Repairer/Provider? Yes, told to present to emergency department Patient with any new symptom issues: No Psychosocial Risk Factors: None COPIED FROM ED NOTE 06/10/24: ED course: I personally performed a history and physical examination the patient and discussed management with the resident physician/PA/QUALITY MANAGEMENT NURSE. I reviewed the resident/PA/QUALITY MANAGEMENT NURSE's note and agree with documented findings and plan of care, unless otherwise listed above. I supervised procedures performed by resident physician/PA/QUALITY MANAGEMENT NURSE. EKG was normal sinus rhythm. CBC CMP [...] Patient reminded of her follow-up appointment with [facility] provider, Dr. Dorsey on 06/21/24: Offered patient sooner appointment, he needs to check his calendar and call back in . Next Evaporator Repairer outreach with patient scheduled? No, call as needed Discussed Patient had bone biopsy on 06/09/24 and results still pending. States the Oxycodone is helping a little bit; the dose pack that Dr. Dorsey helped the most, can I have more of those? Discussed above with Karon Conte, COLOR STRAINING BAG WASHER and Rx sent to [facility]. PATIENT EDUCATION/REINFORCEMENT Patient verbalizes understanding of when to seek Medical Attention? YES Patient verbalizes understanding of after hours and weekend phone number? YES Patient verbalizes understanding of next outreach appointment? YES Brittani Aguila, RN [facility] 06-07-2024 Telephone encounter Note Patient scheduled for BX on 06/09. Scheduled follow up with Dr. Dorsey on 06/23. Hetal Moore [facility] 06-07-2024 Miscellaneous Notes Patient scheduled for BX on 06/09. Scheduled follow up with Dr. Dorsey on 06/23. Hetal Moore Check out comments:Bone bx at [facility] Secure Chat started for scheduling purposes No immunotherapy Friday - cancelled Will need follow up with Dr Alcantara pending bx results documented in this encounter [facility] 06-07-2024 Telephone encounter Note Patient informed of norco prescription. Patient informed that if the pain does not improve within 2 days, he needs to go to [facility] ED. Patient stated understanding. Deborah Domínguez RN [facility] 06-07-2024 Miscellaneous Notes Patient informed of norco prescription. Patient informed that if the pain does not improve within 2 days, he needs to go to [facility] ED. Patient stated understanding. Deborah Domínguez RN Care Coordination Triage Note [facility] Situation: Patient reports Pain/Back or Spine Pain/Headache [...] This PSS attempt to transfer call to Evaporator Repairer, but there was no answer. Hetal Moore documented in this encounter [facility] 06-07-2024 Note [facility] 06-07-2024 History of Presen t illness Narrative See telephone encounter from same day. Pt with pain 2/2 to new bone mets. Waiting for bone bx. Tramadol not helping with pain. PDMP reviewed. No concerns. [place] sent for cancer related bone pain, awaiting bx. Previously tolerated. Pt advised to discontinue tramadol. Karon Conte APRN.COLOR STRAINING BAG WASHER documented in this encounter [facility] 06-07-2024 Telephone encounter Note Care Coordination Triage Note [facility] Situation: Patient reports Pain/Back or Spine Pain/Headache [...] Domínguez RN June 07, 2024 9:16 AM [facility] 06-07-2024 Telephone encounter Note Patient called in as he is using new medication(Tramadol) and it isn't helping at all. He says he is in so much pain that it is hard to even get up to go to the bathroom. Please advise. This PSS attempt to transfer call to Evaporator Repairer, but there was no answer. Hetal Moore [facility] 06-04-2024 Telephone encounter Note Check out comments:Bone bx at [facility] Secure Chat started for scheduling purposes No immunotherapy Friday - cancelled Will need follow up with Dr Alcantara pending bx results [facility] 06-04-2024 Telephone encounter Note Lvm for Rosalva Bowles at the [place] stating we need a new referral put in for this patient. When she calls back advise patient has been seen multiple times since the referral has as well. Naty Iqbal [facility] 06-04-2024 Note [facility] 06-04-2024 History of Presen t illness Narrative [...] and plugged other PAST SURGICAL HISTORY OF [id number] shoulder scope bilateral right x 2 and left x 1 PAST SURGICAL HISTORY OF 200? knee scope bilateral PAST SURGICAL HISTORY OF 2010 laminectomy L4-L5 at [place] PAST SURGICAL HISTORY OF 2014 and remote [...] squamous non small cell lung cancer per [place] pathology report plan durvalumab 1 year C1D1 [...] up pending bone bx. Pt would prefer [place] Pt in agreement with plan. Advised to call with any questions or concerns. Karon Conte APRN.COLOR STRAINING BAG WASHER I spent a total of 60 minutes on the date of the service which included preparing to see the patient, [id number] patient care, completing clinical documentation, obtaining and/or [...] of this patient. documented in this encounter [facility] 05-31-2024 History of Presen t illness Narrative [...] PATIENT PRESENTS WITH AN IMPLANTABLE OR ATTACHED STAGE HAND: No CREATININE: Creatinine Date Value Ref Range [...] 0730 PATIENT DISCHARGED TO: Ambulatory patient, left [place] department area. A Diagnostic radioactive procedure has taken place, with no further precautions necessary other than routine body substance precautions. More information regarding radiation safety can be found using this link: [email or web address] SIGNATURE: RT Charles(R) PATIENT NAME: Chun Alcaraz DATE: May 31, 2024 TIME: 7:44 AM PAGER/CONTACT #: documented in this encounter [facility] 05-31-2024 Note HNO ID: [id number] Author: KARO DENG RT(R) Service: Radiology Author [...] PATIENT PRESENTS WITH AN IMPLANTABLE OR ATTACHED STAGE HAND: No CREATININE: Creatinine Date Value Ref Range [...] 31, 2024 TIME: 7:44 AM PAGER/CONTACT #: [facility] 05-27-2024 Note [facility] 05-27-2024 History of Presen t illness Narrative [...] squamous non small cell lung cancer per [place] report ?progressive disease in spine, though [...] and plugged other PAST SURGICAL HISTORY OF [id number] shoulder scope bilateral right x 2 and left x 1 PAST SURGICAL HISTORY OF 200? knee scope bilateral PAST SURGICAL HISTORY OF 2010 laminectomy L4-L5 at [place] PAST SURGICAL HISTORY OF 2013 and remote [...] which included preparing to see the patient, [id number]-[id number] patient care, completing clinical documentation, obtaining and/or reviewing separately obtained history, counseling and educating the patient/family/caregiver, ordering medications, tests, or procedures, communicating with other HCPs (not separately reported), independently interpreting results (not separately reported), communicating results to the patient/family/caregiver, and care coordination (not separately reported). Electronically Signed: Roger Dorsey MD May 27, 2024 documented in this encounter [facility] 05-19-2024 Note [facility] 05-19-2024 History of Presen t illness Narrative [...] appointment.. MARY Tuttle documented in this encounter [facility] 05-17-2024 Note [facility] 05-17-2024 History of Presen t illness Narrative [...] assessed the pt. documented in this encounter [facility] 05-14-2024 Telephone encounter Note Patient scheduled [facility] Work Phone: 05-14-2024 Miscellaneous Notes Patient scheduled [...] placed.. Roger Dorsey MD May 14, 2024 [facility] Care Coordination FOLLOW-UP NOTE Patient identified by name and date of . YES Spoke to Mary Mederos, from [place] at [place]. phone [phone] Summary: (Reason for follow-up) Patient c/o of [...] May 13, 2024 documented in this encounter [facility] 05-14-2024 Telephone encounter Note Patient called in to schedule PET scan, was transferred to my phone and left VM. PSS: please call patient back. Lauryn Aguila RN [facility] Work Phone: 05-14-2024 Telephone encounter Note PSS: Patient to call in to our office later today. Please assist with scheduling PET scan per Dr. Dorsey order. Lauryn Aguila RN [facility] 05-14-2024 Telephone encounter Note Call to chava [...] get that set up. Lauryn Aguila RN [facility] 05-14-2024 Telephone encounter Note Agree, PET order placed.. Roger Dorsey MD May 14, 2024 [facility] 05-13-2024 Telephone encounter Note [facility] Care Coordination FOLLOW-UP NOTE Patient identified by name and date of . YES Spoke to Mary Mederos, from [facility] [place]. phone [phone] Summary: (Reason for follow-up) Patient c/o of [...] him. Brittani Aguila RN May 13, 2024 [facility] 04-30-2024 History of Presen t illness Narrative [...] brain aneurysm-clipped x 1 and plugged other [id number]: PAST SURGICAL HISTORY OF Comment: shoulder scope bilateral right x 2 and left x 1 200? : PAST SURGICAL HISTORY OF Comment: knee scope bilateral 2011: PAST SURGICAL HISTORY OF Comment: laminectomy L4-L5 at [place] 2013 and remote: PAST SURGICAL HISTORY OF [...] squamous non small cell lung cancer per [place] pathology report plan durvalumab 1 year C1D1 started 03/22/2024 - Continue with treatment, tolerating well - labs reviewed ok, to use labs from today 04/30/2024 for treatment on Friday. - [facility] and [facility] following his upcoming scan. Pt in agreement with plan. Advised to call with any questions or concerns. Karon Conte APRN.COLOR STRAINING BAG WASHER I spent a total of 35 minutes on the date of the service which included preparing to see the patient, [id number] patient care, completing clinical documentation, and counseling [...] of this patient. documented in this encounter [facility] 04-30-2024 Note [facility] 04-14-2024 Telephone encounter Note Spoke to Yonathan, Patient has refills at [facility] for Ambien 10mg. Patient will contact the pharmacy Germaine Roberson LPN [facility] 04-14-2024 Miscellaneous Notes Spoke to Yonathan, Patient has refills at [facility] for Ambien 10mg. Patient will contact the pharmacy Germaine Roberson LPN documented in this encounter [facility] 04-05-2024 Note HNO ID: [id number] Author: NANI MARTI, RN Service: ? Author Type: Registered Nurse Type: Progress Notes Filed: 04/05/2024 16:15 Note Text: OV Note from 04/02/24 Karon Robleroight states ok to use labs for today's treatment. Nani Marti RN [facility] 04-05-2024 History of Presen t illness Narrative OV Note from 04/02/24 Karon Robleroight states mi to use labs for today's treatment. Nani Marti RN documented in this encounter [facility] 04-02-2024 History of Presen t illness Narrative [...] and plugged other PAST SURGICAL HISTORY OF [id number] shoulder scope bilateral right x 2 and left x 1 PAST SURGICAL HISTORY OF 200? knee scope bilateral PAST SURGICAL HISTORY OF 2010 laminectomy L4-L5 at [place] PAST SURGICAL HISTORY OF 2014 and remote [...] squamous non small cell lung cancer per [place] pathology report plan durvalumab 1 year C1D1 started 03/22/2024 - Continue with treatment, tolerating well - labs reviewed ok, to use labs from today 04/02/2024 for treatment on Friday. Pt in agreement with plan. Advised to call with any questions or concerns. Karon Conte APRN.COLOR STRAINING BAG WASHER I spent a total of 35 minutes on the date of the service which included preparing to see the patient, [id number] patient care, completing clinical documentation, and counseling [...] of this patient. documented in this encounter [facility] 04-02-2024 Note [facility] 03-31-2024 Telephone encounter Note TOXICITY CHECK SYMPTOM [...] after hours number protocol. Deborah Domínguez RN [facility] 03-31-2024 Miscellaneous Notes TOXICITY CHECK SYMPTOM [...] Deborah Domínguez RN documented in this encounter [facility] 03-30-2024 Telephone encounter Note Rescheduled with patient [facility] Work Phone: 03-30-2024 Miscellaneous Notes Rescheduled with patient Left message for patient to return call. When he calls, please ask him to see Karon on 04/02 and reschedule accordingly. (Trying to move patients to work in an urgent patient/consult.) Hetal Moore documented in this encounter [facility] 03-30-2024 Telephone encounter Note Left message for patient to return call. When he calls, please ask him to see Karon on 04/02 and reschedule accordingly. (Trying to move patients to work in an urgent patient/consult.) Hetal Moore [facility] 03-30-2024 Telephone encounter Note Disregard [facility] 03-30-2024 Miscellaneous Notes Disregard documented in this encounter [facility] 03-24-2024 Telephone encounter Note CYCLE 1/DAY 1 [...] after hours number protocol. Brittani Aguila RN [facility] Work Phone: 03-24-2024 Miscellaneous Notes CYCLE 1/DAY [...] Brittani Aguila RN documented in this encounter [facility] 03-24-2024 Note HNO ID: [id number] Author: ?, ?, ? Service: ? Author Type: ? Type: Progress Notes Filed: 03/25/2024 09:19 Note Text: Scheduled with patient [facility] 03-24-2024 History of Presen t illness Narrative [...] Vimal Stoner MD documented in this encounter [facility] 03-24-2024 Note [facility] 03-23-2024 Telephone encounter Note CYCLE 1/DAY 1 POST TREATMENT CALL Today's date: March 23, 2024 Treatment Regimen: Durvalumab C1D1 Date: 03/22/24 Call to patient, message left to call me back and phone/contact number provided. Brittani Aguila RN [facility] 03-19-2024 Note [facility] 03-19-2024 History of Presen t illness Narrative Patient teaching was completed over the phone. Brittani Aguila RN Evaporator Repairer Pre Chemo Patient identified by name and date of . YES Confirmed date and time for chemotherapy ? YES Other appointments (labs, imaging) discussed? YES Discussed where to park ([employer]), charge for parking YES Discussed where to [...] Brittani Aguila RN documented in this encounter [facility] 03-19-2024 Note [facility] 03-15-2024 History of Presen t illness Narrative [...] activity was identified. 03/15/2024 by Jose Brennan APRN.COLOR STRAINING BAG WASHER Portions of this note have been entered [...] Jose Brennan APRN-NAY documented in this encounter [facility] 03-15-2024 Note [facility] 03-10-2024 Note [facility] 03-10-2024 History of Presen t illness Narrative [...] squamous non small cell lung cancer per [place] pathology report RECOMMENDATION/PLAN: 1. plan durvalumab 1 [...] and plugged other PAST SURGICAL HISTORY OF [id number] shoulder scope bilateral right x 2 and left x 1 PAST SURGICAL HISTORY OF 200? knee scope bilateral PAST SURGICAL HISTORY OF 2010 laminectomy L4-L5 at [place] PAST SURGICAL HISTORY OF 2014 and remote [...] which included preparing to see the patient, [id number] patient care, completing clinical documentation, obtaining and/or reviewing separately obtained history, counseling and educating the patient/family/caregiver, ordering medications, tests, or procedures, communicating with other HCPs (not separately reported), independently interpreting results (not separately reported), communicating results to the patient/family/caregiver, and care coordination (not separately reported). Electronically Signed: Roger Dorsey MD March 10, 2024 documented in this encounter [facility] 02-26-2024 History of Presen t illness Narrative [...] PATIENT PRESENTS WITH AN IMPLANTABLE OR ATTACHED STAGE HAND: No ALLERGIES: Reviewed and unchanged CONTRAST ALLERGY: [...] TIME: 1:03 PM documented in this encounter [facility] 02-25-2024 Nurse Note Written discharge instructions given and reviewed with patient. Patient verbalizes understanding. Encouraged to call with any questions or concerns. Instruction for 4week phone call follow up appointment given by Dr. Stoner. [facility] 02-25-2024 Nurse Note Written discharge instructions given and reviewed with patient. Patient verbalizes understanding. Encouraged to call with any questions or concerns. Instruction for 4week phone call follow up appointment given by Dr. Stoner. documented in this encounter [facility] 02-25-2024 History of Presen t illness Narrative CHUN ALCARAZ [id number] : 1960 02/25/2024 [facility] Department of Radiation Oncology RADIATION ONCOLOGY - COMPLETION NOTE DATE OF SIMULATION: 01/15/24 DATES OF TREATMENT: 02/16/24 - 02/25/24 UNIT: [facility] AREA TREATED: Left lower lung DISEASE: 1. [...] week follow-up with me. Staff Physician VIMAL STONER M.D. / 410:34 AM Electronically Signed cc: Jose Brennan [phone] [phone] Roger [facility] documented in this encounter [facility] 02-18-2024 History of Presen t illness Narrative [...] Vimal Stoner MD documented in this encounter [facility] 02-18-2024 Nurse Note Radiation Therapy - Nursing Note (OTV) PATIENT NAME: Chun Alcaraz PATIENT February 18, 2024 [facility] FACILITY/LOCATION: [place] NURSING NOTE TYPE: CHEST Subjective Data no complaints Additional Data Do you want to see a Family Life Counselor? No Status: Patient is male Stress Scale: On a scale of 0 to 10, what number best describes how much distress you have experienced in the past week?(0 being no distress and 10 being extreme distress) 2 Social work notified: Pt denied need to see social service technician at this time. Nursing Assessment Fatigue: increased [...] Cough: None. SIGNED by: Haleigh Ortega RN [facility] 02-18-2024 Nurse Note Radiation Therapy - Nursing Note (OTV) PATIENT NAME: Chun Alcaarz PATIENT February 18, 2024 [facility] FACILITY/LOCATION: [facility] NOTE TYPE: CHEST Subjective Data no complaints Additional Data Do you want to see a Family Life Counselor? No Status: Patient is male Stress Scale: On a scale of 0 to 10, what number best describes how much distress you have experienced in the past week?(0 being no distress and 10 being extreme distress) 2 Social work notified: Pt denied need to see social service technician at this time. Nursing Assessment Fatigue: increased [...] Haleigh Ortega RN documented in this encounter [facility] 02-11-2024 Telephone encounter Note Patient was given a folder with information on Durvalumab, when to call sheet, helpful hints sheet. Patient aware this nurse will review on scheduled appointment date. Patient to have Ct scan then follow up to decide. Lauryn Aguila RN [facility] Work Phone: 02-11-2024 Miscellaneous Notes Patient was given a folder with information on Durvalumab, when to call sheet, helpful hints sheet. Patient aware this nurse will review on scheduled appointment date. Patient to have Ct scan then follow up to decide. Lauryn Aguila RN documented in this encounter [facility] 02-11-2024 History of Presen t illness Narrative (Elements copied from my note datedApr2023 , have been reviewed and updated where appropriate, and all reflect current assessment and medical decision making from today's encounter, February 11, 2024) HISTORY OF PRESENT ILLNESS: Chun Alcraaz is a 63 year old male recent [...] squamous non small cell lung [place] RECOMMENDATION/PLAN: 1. Update CT chest [...] and plugged other PAST SURGICAL HISTORY OF [id number] shoulder scope bilateral right x 2 and left x 1 PAST SURGICAL HISTORY OF 200? knee scope bilateral PAST SURGICAL HISTORY OF 2010 laminectomy L4-L5 at [place] PAST SURGICAL HISTORY OF 2014 and remote [...] which included preparing to see the patient, [id number] patient care, completing clinical documentation, obtaining and/or reviewing separately obtained history, counseling and educating the patient/family/caregiver, ordering medications, tests, or procedures, communicating with other HCPs (not separately reported), independently interpreting results (not separately reported), communicating results to the patient/family/caregiver, and care coordination (not separately reported). Electronically Signed: Roger Dorsey MD February 11, 2024 documented in this encounter [facility] 01-30-2024 Telephone encounter Note Rx transmission failed. Rx called in to pharmacy. Mel Liao LPN [facility] 01-30-2024 Miscellaneous Notes Rx transmission failed. Rx [...] Bekah Rosa LPN documented in this encounter [facility] 01-26-2024 History of Presen t illness Narrative Dr Stoner in at [facility] states that radiation will take place at a later time frame. Pt not due for B12 injection. Nani Marti RN documented in this encounter [facility] 01-15-2024 Nurse Note Radiation Therapy - Patient Education Note PATIENT NAME: Chun Alcaraz PATIENT January 15, 2024 [facility] FACILITY/LOCATION: [place] READINESS TO LEARN Cognitive Ability: Alert and [...] need for social work, van service, and account analyst. Was PED reviewed? unknown Patient has an Onbody or Implanted device: No Signed by: Jessie Sesay RN [facility] 01-15-2024 Nurse Note Radiation Therapy - Patient Education Note PATIENT NAME: Chun Alcaraz PATIENT January 15, 2024 [facility] FACILITY/LOCATION: [place] READINESS TO LEARN Cognitive Ability: Alert and [...] need for social work, van service, and account analyst. Was PED reviewed? unknown Patient has an Onbody or Implanted device: No Signed by: Jessie Sesay RN documented in this encounter [facility] 01-15-2024 History of Presen t illness Narrative CHUN ALCARAZ [id number] 01/15/2024 [facility] Department of Radiation Oncology [facility] RADIATION ONCOLOGY SIMULATION NOTE DATE OF SIMULATION: 01/15/2024 MACHINE: [address] Simulator Diagnosis: 1. Clinical stage [...] M.D./cris 42:29 PM documented in this encounter [facility] 01-15-2024 History of Presen t illness Narrative CHUN ALCARAZ [id number] 01/15/2024 [facility] Department of Radiation Oncology Treatment Planning Note [...] M.D. 42:17 PM documented in this encounter [facility] 01-13-2024 Telephone encounter Note Patient has been identified by name and date of : Yes Requested Prescriptions Pending Prescriptions Disp Refills folic acid 1 mg tablet [Pharmacy Med Name: FOLIC ACID 1 MG TABLET] 90 tablet 1 Sig: take 1 tablet by mouth every day RX INSTRUCTIONS: Patient aware RX will be sent to pharmacy. No need to notify patient. Bekah Rosa LPN [facility] 01-13-2024 Telephone encounter Note Spoke to [facility], refill request was automatically generated for Albuterol HFA and Sertraline. Advised that Patient should have refilkls of Sertraline, he can call for refill of Albuterol if needed. Next appt 03/15/2024. Germaine Roberson LPN [facility] 01-13-2024 Miscellaneous Notes Spoke to [facility], refill request was automatically generated for Albuterol HFA and Sertraline. Advised that Patient should have refilkls of Sertraline, he can call for refill of Albuterol if needed. Next appt 03/15/2024. Germaine Roberson LPN documented in this encounter [facility] 01-06-2024 History of Presen t illness Narrative [...] - ICD9: 196.1, ICD10: C77.1 Jose Brennan APRN.COLOR STRAINING BAG WASHER Portions of this note have been entered [...] Jose Brennan APRN-NAY documented in this encounter [facility] 01-06-2024 Telephone encounter Note Spoke to pt. He has an apt at [facility] today and will stop at the lab. Makayla Mann LPN [facility] 01-06-2024 Miscellaneous Notes Spoke to pt. He has an apt at [facility] today and will stop at the lab. Makayla Mann LPN LFTs up further. Needs hep remote panel. Results to Dr. Grazyna Danielle DO documented in this encounter [facility] 01-05-2024 Telephone encounter Note LFTs up further. Needs hep remote panel. Results to Dr. Grazyna Danielle DO [facility] 01-05-2024 History of Presen t illness Narrative [...] forward with treatment. documented in this encounter [facility] 01-05-2024 History of Presen t illness Narrative CHUN ALCARAZ [id number] : 1960 01/05/2024 [facility] Department of Radiation Oncology RADIATION ONCOLOGY - COMPLETION NOTE DATE OF SIMULATION: 11/17/23 DATES OF TREATMENT: 11/24/23 - 01/05/24 [facility] AREA TREATED: RUL and mediastinum DISEASE: 1. [...] :23 PM Electronically Signed cc: Jose Brennan [id number] [place] [address] Roger [facility] documented in this encounter [facility] 01-01-2024 History of Presen t illness Narrative [...] squamous non [place] RECOMMENDATION/PLAN: 1. RT with concurrent [...] and plugged other PAST SURGICAL HISTORY OF [id number] shoulder scope bilateral right x 2 and left x 1 PAST SURGICAL HISTORY OF 200? knee scope bilateral PAST SURGICAL HISTORY OF 2010 laminectomy L4-L5 at [place] PAST SURGICAL HISTORY OF 2013 and remote [...] which included preparing to see the patient, [id number] patient care, completing clinical documentation, obtaining and/or reviewing separately obtained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)- Primary Primary cancer of left lower lobe of lung (HCC) [facility] [place] [facility] Diagnosis 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)- Primary [facility] [place] [facility] Diagnosis 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)- Primary Primary cancer of left lower lobe of lung (HCC) 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) [facility] [place] [facility] Diagnosis 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 [facility] Encounter for education- Primary Counseling NOS 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) [facility] [place] [facility] Diagnosis 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 [facility] [place] [facility]* Diagnosis 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)- Primary [facility] [place] [facility]* Diagnosis Situational mixed anxiety and depressive disorder- Primary Adjustment disorder with mixed anxiety and depressed mood 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) Malignant neoplasm of prostate (HCC) Malignant neoplasm of prostate [facility] [place] [facility]* Diagnosis 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)- Primary [facility] [place] [facility]* Diagnosis Primary cancer of right upper [...] node (HCC) [facility] [place] [facility] Diagnosis 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)- Primary [facility] [place] [facility] Diagnosis 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)- Primary [facility] [place] [facility]* Diagnosis 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)- Primary [facility] [place] [facility]* Diagnosis 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 [facility] [place] [facility]* Diagnosis Malignant neoplasm of prostate (HCC)- Primary Malignant neoplasm of prostate 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) [facility] [place] [facility]* Diagnosis 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 [facility] Diagnosis Chronic nonintractable headache, unspecified headache type- Primary Situational mixed anxiety and depressive disorder Adjustment disorder with mixed anxiety and depressed mood 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) [facility] [place] [facility]* Diagnosis Situational mixed anxiety and depressive disorder Adjustment disorder with mixed anxiety and depressed mood [facility] [place] [facility]* Diagnosis Primary cancer of left lower lobe of lung (HCC)- Primary [facility] [place] [facility]* Diagnosis Malignant neoplasm m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 [...] or lung (HCC) [facility] [place] [facility]* Diagnosis 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 [facility] [place] [facility]* Diagnosis Insomnia due to medical condition- Primary Insomnia due to medical condition classified elsewhere Situational mixed anxiety and depressive disorder Adjustment disorder with mixed anxiety and depressed mood Chronic nonintractable headache, unspecified headache type 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) Malignant neoplasm of prostate (HCC) Malignant neoplasm of prostate Primary hypertension Unspecified essential hypertension [facility] [place] [facility]* Diagnosis Encounter for education- Primary Counseling NOS Malignant neoplasm of unspecified part of unspecified bronchus or lung (HCC) [facility] [place] [facility]* Diagnosis 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 [facility] [place] [facility]* Diagnosis Radiotherapy follow-up- Primary Radiotherapy follow-up examination [facility] [place] [facility]* Diagnosis Malignant neoplasm of unspecified part of unspecified bronchus or lung (HCC)- Primary 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) [facility] [place] [facility]* Diagnosis 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 due to medical condition classified elsewhere [facility] [place] [facility]* Diagnosis 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 [facility] [place] [facility]* Diagnosis 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 [facility] [place] [facility]* Diagnosis 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 [facility] [place] [facility]* Diagnosis 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 [facility] Diagnosis 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 [facility] Diagnosis Acute right-sided thoracic back pain- Primary Situational mixed anxiety and depressive disorder Adjustment disorder with mixed anxiety and depressed mood [facility] [place] [facility]* Diagnosis 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 [facility] 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) [facility] [place] [facility]* Diagnosis Malignant neoplasm m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 [...] bone (HCC)- Primary [facility] Diagnosis Encounter for education- Primary [...] of prostate [facility] [place] [facility]* Diagnosis 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 [facility] Diagnosis 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 [facility] Diagnosis CINV (chemotherapy-induced nausea and vomiting)- Primary Nausea with vomiting [facility] Diagnosis Malignant neoplasm metastatic to [...] thoracic back pain [facility] Diagnosis Subacute cough Cough [facility] [place] [facility]* Diagnosis Insomnia due to medical condition- [...] unspecified constipation type [facility] [place] [facility]* Diagnosis Cancer, 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 [facility] [place] [facility]* Diagnosis Chronic right-sided thoracic back pain- [...] and depressed mood [facility] [place] [facility]* Diagnosis Malignant neoplasm of unspecified part of unspecified bronchus or lung (HCC) documented in this encounter [facility] Discharge instructions No data available for this section [facility] Reason for referral (narrative)* Diagnostic Procedure Only (Routine) - Authorized Specialty Diagnoses / Procedures Referred By Contac t Referred To Contact MOLECULAR & FUNCTIONAL IMAGING Diagnoses 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) Procedures NM PET/CT SKULL-THIGH SUBSEQUENT PET IMAGING CT ATTENUATION [place] [address] [place] [address] Molecular & Functional Imaging [address] [place] [address] Referral ID Status Reason Start Date Expiration Date Visits Requested Visits Authorized [id number] Authorized Auto-Generat ed Referral 05/14/2024 06/13/2025 1 1 [facility] for referral (narrative)* Diagnostic Procedure Only (Routine) - Closed Specialty Diagnoses / Procedures Referred By Contac t Referred To Contact MOLECULAR & FUNCTIONAL IMAGING Diagnoses 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) Procedures NM PET/CT SKULL-THIGH SUBSEQUENT PET IMAGING CT ATTENUATION [place] [address] [place] [phone] Molecular & Functional Imaging [address] [place] [address] Referral ID Status Reason Start Date Expiration Date V isits Requested Visits Authorized [id number] Closed Auto-Generate d Referral 05/14/2024 06/13/2025 1 1 [facility] for referral (narrative)* Diagnostic Procedure Only (Routine) - Closed Specialty Diagnoses / Procedures [facility] Referred To Contact XR IMAGING Diagnoses 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) Procedures XR FEMUR GENERAL 2V AP/LAT LEFT RADIOLOGIC EXAMINATION FEMUR MINIMUM 2 [place] [address] [place] [phone] Xr Imaging [place] [address] Referral ID Status Reason Start Date Expiration Date V isits Requested Visits Authorized [id number] Closed Auto-Generate d Referral 06/18/2024 07/18/2025 1 1 T [facility] for referral (narrative)* Diagnostic Procedure Only (Routine) - Pending Review Specialty Diagnoses / Procedures [facility]erred [facility] Referred To Contact MOLECULAR & FUNCTIONAL IMAGING Diagnoses 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) Procedures NM PET/CT SKULL-THIGH SUBSEQUENT PET IMAGING CT ATTENUATION [place] [address] [place] [phone] Molecular & Functional Imaging [address] [place] [address] Referral ID Status Reason Start Date Expiration Date Visits Requested Visits Authorized [id number] Pending Review Auto-Generat ed Referral 10/06/2024 11/05/2025 1 1 [facility] for visit Narrative* Diagnostic Procedure Only (Routine) - Closed Specialty Diagnoses / Procedures Referred By Contac t Referred To Contact MOLECULAR & FUNCTIONAL IMAGING Diagnoses 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) Procedures NM PET/CT SKULL-THIGH SUBSEQUENT PET IMAGING CT ATTENUATION [place] [address] [place] [phone] Molecular & Functional Imaging [address] [place] [address] Referral ID Status Reason Start Date Expiration Date V isits Requested Visits Authorized [id number] Closed Auto-Generate d Referral 05/14/2024 06/13/2025 1 1 [facility] for visit Narrative* Diagnostic Procedure Only (Routine) - Closed Specialty Diagnoses / Procedures Referred By Contac t Referred To Contact XR IMAGING Diagnoses 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) Procedures XR FEMUR GENERAL 2V AP/LAT LEFT RADIOLOGIC EXAMINATION FEMUR MINIMUM 2 [place] [address] [place] [phone] Xr Imaging [place] [address] Referral ID Status Reason Start Date Expiration Date V isits Requested Visits Authorized [id number] Closed Auto-Generate d Referral 06/18/2024 07/18/2025 1 1 [facility] for visit Narrative* Diagnostic Procedure Only (Routine) - Closed Specialty Diagnoses / Procedures Referred By Contac t Referred To Contact MOLECULAR & FUNCTIONAL IMAGING Diagnoses 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) Procedures NM PET/CT SKULL-THIGH SUBSEQUENT PET IMAGING CT ATTENUATION [place] [address] [place] [address] Phone: tel: fax: Molecular Imaging [address] [place] [address] Phone: tel: Referral ID Status Reason Start Date Expiration Date V isits Requested Visits Authorized [id number] Closed Auto-Generate d Referral 06/23/2024 12/20/2024 2 2 [facility] for visit Narrative* Diagnostic Procedure Only (Routine) - Closed Specialty Diagnoses / Procedures Referred By Contac t Referred To Contact XR IMAGING Diagnoses Cancer, metastatic to bone (HCC) Procedures XR LUMBAR GENERAL 3V AP/LAT/L5-S1 RADEX SPINE LUMBOSACRAL 2/3 VIEWS Jose Brennan, MINING SUPPORT WORKER.[employer] STRAINING BAG W[employer]ER [address] [place] [address] Phone: tel: fax: [place] [address] Referral ID Status Reason Start Date Expiration Date V isits Requested Visits Authorized [id number] Closed Auto-Generate d Referral 01/17/2025 02/16/2026 1 1 [facility] for visit Narrative* Diagnostic Procedure Only (Routine) - Denied Specialty Diagnoses / Procedures Referred By Contac t Referred To Contact MOLECULAR & FUNCTIONAL IMAGING Diagnoses Malignant neoplasm of unspecified part of unspecified bronchus or lung (HCC) Procedures NM PET/CT SKULL-THIGH SUBSEQUENT PET IMAGING CT ATTENUATION [place] [address] [place] [address] Phone: tel: fax: Molecular Imaging [address] [place] [address] Phone: tel: Referral ID Status Reason Start Date Expiration Date V isits Requested Visits Authorized [id number] Denied Clearance Not Met - Admin/Chairm an/Director Advise to Postpone/Res chedule or Not Proceed 11/12/2024 12/12/2025 0 0 [facility] for visit Narrative* Diagnostic Procedure Only (Routine) - Denied Specialty Diagnoses / Procedures Referred By Contac t Referred To Contact MOLECULAR & FUNCTIONAL IMAGING Diagnoses Malignant neoplasm of unspecified part of unspecified bronchus or lung (HCC) Procedures NM PET/CT SKULL-THIGH SUBSEQUENT PET IMAGING CT ATTENUATION [place] [address] [place] [address] Phone: tel: fax: Molecular Imaging [address] [place] [address] Phone: tel: Referral ID Status Reason Start Date Expiration Date V isits Requested Visits Authorized [id number] Denied Clearance Not Met - Admin/Chairm an/Director Advise to Postpone/Res chedule or Not Proceed 11/12/2024 12/12/2025 0 0 [facility] Summary Purpose Family History No Family History [...] VIEWS Anne-Marie Constantino [address] [place], [place] [id number] [facility] [address] [place] [address] [place] [id number] Referral ID Status Reason Start Date Expiration Date Visits Re quested Visits Authorized [id number] Closed 06/21/2024 06/21/2025 1 1 Specialty Diagnoses / Procedures Referred By Carrie t Referred To Contact CT IMAGING Diagnoses Malignant neoplasm of unspecified part of unspecified bronchus or lung (HCC) Procedures CT CHEST W IVCON DIAGNOSTIC COMPUTED TOMOGRAPHY THORAX W/[place] [address] [place] [address] [place] [address] Referral ID Status Reason Start Date Expiration Date Visits Requested Visits Authorized [id number] Authorized Auto-Generat ed Referral 02/11/2024 03/12/2025 1 1 Specialty Diagnoses / Procedures Referred By Contac t Referred To Contact RADIATION ONCOLOGY Diagnoses 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) Procedures CT SIM PLANNING RADIATION ONCOLOGY THER RAD SIMULAJ-AIDED FIELD SETTING COMPLEX INTENSITY MODULATED RADIATION TX DLVR Vimal Garcia MD [address] [place] [address] [facility] [address] [place] [address] Referral ID Status Reason Start Date Expiration Date Visits Requested Visits Authorized [id number] Pending Review PCP Requested Referral 11/14/2023 02/12/2024 36 36 Specialty Diagnoses / Procedures [facility]erred [facility] Referred To Contact CT IMAGING Diagnoses Brain aneurysm Malignant neoplasm of prostate (HCC) Seizure-like activity (HCC) Aneurysm of vertebral artery (HCC) Procedures CTA NECK W IVCON CT ANGIOGRAPHY NECK W/CONTRAST/NONCONTRAST Jose Brennan APRN.[employer] [address] [place] [address] Ct Imaging [id number] Referral ID Status Reason Start Date Expiration Date Visits Requested Visits Authorized [id number] Authorized Auto-Generat ed Referral 3 09/07/2023 1 1 Specialty Diagnoses / Procedures Referred By [facility] Referred To Contact CT IMAGING Diagnoses Brain aneurysm Malignant neoplasm of prostate (HCC) Seizure-like activity (HCC) Nonruptured cerebral aneurysm Procedures CTA HEAD WO/W IVCON CT ANGIOGRAPHY HEAD W/CONTRAST/NONCONTRAST Jose Brennan APRN.[employer] [address] [place] [address] [place] [address] Referral ID Status Reason Start Date Expiration Date Visits Requested Visits Authorized [id number] Authorized Auto-Generat ed Referral 3 09/07/2023 1 [...] CREATED AUTHOR 11/15/2019 [facility] [place] DATE CREATED AUTHOR AUTHOR'S ORGANIZ ATION 02/16/2020 [facility] DATE CREATED AUTHOR AUTHOR'S ORGANIZ ATION 10/16/2021 [facility] ([place]) DATE CREATED AUTHOR AUTHOR'S ORGANIZ ATION 01/11/2022 [facility] DATE CREATED AUTHOR AUTHOR'S ORGANIZ ATION 12/11/2022 [facility] DATE CREATED AUTHOR AUTHOR'S ORGANIZ ATION 12/12/2022 [facility] DATE CREATED AUTHOR AUTHOR'S ORGANIZ ATION 06/23/2024 [facility] DATE CREATED AUTHOR AUTHOR'S ORGANIZ ATION 07/08/2024 [facility] DATE CREATED AUTHOR AUTHOR'S ORGANIZ ATION 11/11/2024 [facility] DATE CREATED AUTHOR AUTHOR'S ORGANIZ ATION 03/05/2025 [facility] DATE CREATED AUTHOR AUTHOR'S ORGANIZ ATION 03/08/2025 [facility] Comments (unrecognize d section and content) In the event this informatio n is protected by the Federal Confidentiality of Alcohol and Drug Abuse Patient Records regulations: The Federal rules restrict any use of the information to criminally investigate or prosecute any alcohol or drug abuse patient.[facility] SystemIn the event this information is protected by the Federal Confidentiality of Alcohol and Drug Abuse Patient Records regulations: The Federal rules restrict any use of the information to criminally investigate or prosecute any alcohol or drug abuse patient.[facility] SystemIn the event this information is protected by the Federal Confidentiality of Alcohol and Drug Abuse Patient Records regulations: The Federal rules restrict any use of the information to criminally investigate or prosecute any alcohol or drug abuse patient.[facility] SystemIn the event this information is protected by the Federal Confidentiality of Alcohol and Drug Abuse Patient Records regulations: The Federal rules restrict any use of the information to criminally investigate or prosecute any alcohol or drug abuse patient.[facility] SystemIn the event this information is protected by the Federal Confidentiality of Alcohol and Drug Abuse Patient Records regulations: The Federal rules restrict any use of the information to criminally investigate or prosecute any alcohol or drug abuse patient.[facility] SystemIn the event this information is protected by the Federal Confidentiality of Alcohol and Drug Abuse Patient Records regulations: The Federal rules restrict any use of the information to criminally investigate or prosecute any alcohol or drug abuse patient.[facility] SystemIn the event this information is protected by the Federal Confidentiality of Alcohol and Drug Abuse Patient Records regulations: The Federal rules restrict any use of the information to criminally investigate or prosecute any alcohol or drug abuse patient.[facility] SystemIn the event this information is protected by the Federal Confidentiality of Alcohol and Drug Abuse Patient Records regulations: The Federal rules restrict any use of the information to criminally investigate or prosecute any alcohol or drug abuse patient.[facility] SystemIn the event this information is protected by the Federal Confidentiality of Alcohol and Drug Abuse Patient Records regulations: The Federal rules restrict any use of the information to criminally investigate or prosecute any alcohol or drug abuse patient.[facility] SystemIn the event this information is protected by the Federal Confidentiality of Alcohol and Drug Abuse Patient Records regulations: The Federal rules restrict any use of the information to criminally investigate or prosecute any alcohol or drug abuse patient.[facility] SystemIn the event this information is protected by the Federal Confidentiality of Alcohol and Drug Abuse Patient Records regulations: The Federal rules restrict any use of the information to criminally investigate or prosecute any alcohol or drug abuse patient.[facility] SystemIn the event this information is protected by the Federal Confidentiality of Alcohol and Drug Abuse Patient Records regulations: The Federal rules restrict any use of the information to criminally investigate or prosecute any alcohol or drug abuse patient.[facility] SystemIn the event this information is protected by the Federal Confidentiality of Alcohol and Drug Abuse Patient Records regulations: The Federal rules restrict any use of the information to criminally investigate or prosecute any alcohol or drug abuse patient.[facility] SystemIn the event this information is protected by the Federal Confidentiality of Alcohol and Drug Abuse Patient Records regulations: The Federal rules restrict any use of the information to criminally investigate or prosecute any alcohol or drug abuse patient.[facility] SystemIn the event this information is protected by the Federal Confidentiality of Alcohol and Drug Abuse Patient Records regulations: The Federal rules restrict any use of the information to criminally investigate or prosecute any alcohol or drug abuse patient.[facility] SystemIn the event this information is protected by the Federal Confidentiality of Alcohol and Drug Abuse Patient Records regulations: The Federal rules restrict any use of the information to criminally investigate or prosecute any alcohol or drug abuse patient.[facility] SystemIn the event this information is protected by the Federal Confidentiality of Alcohol and Drug Abuse Patient Records regulations: The Federal rules restrict any use of the information to criminally investigate or prosecute any alcohol or drug abuse patient.[facility] SystemIn the event this information is protected by the Federal Confidentiality of Alcohol and Drug Abuse Patient Records regulations: The Federal rules restrict any use of the information to criminally investigate or prosecute any alcohol or drug abuse patient.[facility] SystemIn the event this information is protected by the Federal Confidentiality of Alcohol and Drug Abuse Patient Records regulations: The Federal rules restrict any use of the information to criminally investigate or prosecute any alcohol or drug abuse patient.[facility] SystemIn the event this information is protected by the Federal Confidentiality of Alcohol and Drug Abuse Patient Records regulations: The Federal rules restrict any use of the information to criminally investigate or prosecute any alcohol or drug abuse patient.[facility] SystemIn the event this information is protected by the Federal Confidentiality of Alcohol and Drug Abuse Patient Records regulations: The Federal rules restrict any use of the information to criminally investigate or prosecute any alcohol or drug abuse patient.[facility] SystemIn the event this information is protected by the Federal Confidentiality of Alcohol and Drug Abuse Patient Records regulations: The Federal rules restrict any use of the information to criminally investigate or prosecute any alcohol or drug abuse patient.[facility] SystemIn the event this information is protected by the Federal Confidentiality of Alcohol and Drug Abuse Patient Records regulations: The Federal rules restrict any use of the information to criminally investigate or prosecute any alcohol or drug abuse patient.[facility] SystemIn the event this information is protected by the Federal Confidentiality of Alcohol and Drug Abuse Patient Records regulations: The Federal rules restrict any use of the information to criminally investigate or prosecute any alcohol or drug abuse patient.[facility] SystemIn the event this information is protected by the Federal Confidentiality of Alcohol and Drug Abuse Patient Records regulations: The Federal rules restrict any use of the information to criminally investigate or prosecute any alcohol or drug abuse patient.[facility] SystemIn the event this information is protected by the Federal Confidentiality of Alcohol and Drug Abuse Patient Records regulations: The Federal rules restrict any use of the information to criminally investigate or prosecute any alcohol or drug abuse patient.[facility] SystemIn the event this information is protected by the Federal Confidentiality of Alcohol and Drug Abuse Patient Records regulations: The Federal rules restrict any use of the information to criminally investigate or prosecute any alcohol or drug abuse patient.[facility] SystemIn the event this information is protected by the Federal Confidentiality of Alcohol and Drug Abuse Patient Records regulations: The Federal rules restrict any use of the information to criminally investigate or prosecute any alcohol or drug abuse patient.[facility] SystemIn the event this information is protected by the Federal Confidentiality of Alcohol and Drug Abuse Patient Records regulations: The Federal rules restrict any use of the information to criminally investigate or prosecute any alcohol or drug abuse patient.[facility] SystemIn the event this information is protected by the Federal Confidentiality of Alcohol and Drug Abuse Patient Records regulations: The Federal rules restrict any use of the information to criminally investigate or prosecute any alcohol or drug abuse patient.[facility] SystemIn the event this information is protected by the Federal Confidentiality of Alcohol and Drug Abuse Patient Records regulations: The Federal rules restrict any use of the information to criminally investigate or prosecute any alcohol or drug abuse patient.[facility] SystemIn the event this information is protected by the Federal Confidentiality of Alcohol and Drug Abuse Patient Records regulations: The Federal rules restrict any use of the information to criminally investigate or prosecute any alcohol or drug abuse patient.[facility] SystemIn the event this information is protected by the Federal Confidentiality of Alcohol and Drug Abuse Patient Records regulations: The Federal rules restrict any use of the information to criminally investigate or prosecute any alcohol or drug abuse patient.[facility] SystemIn the event this information is protected by the Federal Confidentiality of Alcohol and Drug Abuse Patient Records regulations: The Federal rules restrict any use of the information to criminally investigate or prosecute any alcohol or drug abuse patient.[facility] SystemIn the event this information is protected by the Federal Confidentiality of Alcohol and Drug Abuse Patient Records regulations: The Federal rules restrict any use of the information to criminally investigate or prosecute any alcohol or drug abuse patient.[facility] SystemIn the event this information is protected by the Federal Confidentiality of Alcohol and Drug Abuse Patient Records regulations: The Federal rules restrict any use of the information to criminally investigate or prosecute any alcohol or drug abuse patient.[facility] SystemIn the event this information is protected by the Federal Confidentiality of Alcohol and Drug Abuse Patient Records regulations: The Federal rules restrict any use of the information to criminally investigate or prosecute any alcohol or drug abuse patient.[facility] SystemIn the event this information is protected by the Federal Confidentiality of Alcohol and Drug Abuse Patient Records regulations: The Federal rules restrict any use of the information to criminally investigate or prosecute any alcohol or drug abuse patient.[facility] SystemIn the event this information is protected by the Federal Confidentiality of Alcohol and Drug Abuse Patient Records regulations: The Federal rules restrict any use of the information to criminally investigate or prosecute any alcohol or drug abuse patient.[facility] SystemIn the event this information is protected by [...] or prosecute any alcohol or drug abuse patient.[facility] SystemIn the event this information is protected by the Federal Confidentiality of Alcohol and Drug Abuse Patient Records regulations: The Federal rules restrict any use of the information to criminally investigate or prosecute any alcohol or drug abuse patient.[facility] SystemIn the event this information is protected by the Federal Confidentiality of Alcohol and Drug Abuse Patient Records regulations: The Federal rules restrict any use of the information to criminally investigate or prosecute any alcohol or drug abuse patient.[facility] SystemIn the event this information is protected by the Federal Confidentiality of Alcohol and Drug Abuse Patient Records regulations: The Federal rules restrict any use of the information to criminally investigate or prosecute any alcohol or drug abuse patient.[facility] SystemIn the event this information is protected by the Federal Confidentiality of Alcohol and Drug Abuse Patient Records regulations: The Federal rules restrict any use of the information to criminally investigate or prosecute any alcohol or drug abuse patient.[facility] SystemIn the event this information is protected by the Federal Confidentiality of Alcohol and Drug Abuse Patient Records regulations: The Federal rules restrict any use of the information to criminally investigate or prosecute any alcohol or drug abuse patient.[facility] SystemIn the event this information is protected by the Federal Confidentiality of Alcohol and Drug Abuse Patient Records regulations: The Federal rules restrict any use of the information to criminally investigate or prosecute any alcohol or drug abuse patient.[facility] SystemIn the event this information is protected by the Federal Confidentiality of Alcohol and Drug Abuse Patient Records regulations: The Federal rules restrict any use of the information to criminally investigate or prosecute any alcohol or drug abuse patient.[facility] SystemIn the event this information is protected by the Federal Confidentiality of Alcohol and Drug Abuse Patient Records regulations: The Federal rules restrict any use of the information to criminally investigate or prosecute any alcohol or drug abuse patient.[facility] SystemIn the event this information is protected by the Federal Confidentiality of Alcohol and Drug Abuse Patient Records regulations: The Federal rules restrict any use of the information to criminally investigate or prosecute any alcohol or drug abuse patient.[facility] SystemIn the event this information is protected by the Federal Confidentiality of Alcohol and Drug Abuse Patient Records regulations: The Federal rules restrict any use of the information to criminally investigate or prosecute any alcohol or drug abuse patient.[facility] SystemIn the event this information is protected by the Federal Confidentiality of Alcohol and Drug Abuse Patient Records regulations: The Federal rules restrict any use of the information to criminally investigate or prosecute any alcohol or drug abuse patient.[facility] SystemIn the event this information is protected by the Federal Confidentiality of Alcohol and Drug Abuse Patient Records regulations: The Federal rules restrict any use of the information to criminally investigate or prosecute any alcohol or drug abuse patient.[facility] SystemIn the event this information is protected by the Federal Confidentiality of Alcohol and Drug Abuse Patient Records regulations: The Federal rules restrict any use of the information to criminally investigate or prosecute any alcohol or drug abuse patient.[facility] SystemIn the event this information is protected by the Federal Confidentiality of Alcohol and Drug Abuse Patient Records regulations: The Federal rules restrict any use of the information to criminally investigate or prosecute any alcohol or drug abuse patient.[facility] SystemIn the event this information is protected by the Federal Confidentiality of Alcohol and Drug Abuse Patient Records regulations: The Federal rules restrict any use of the information to criminally investigate or prosecute any alcohol or drug abuse patient.[facility] SystemIn the event this information is protected by the Federal Confidentiality of Alcohol and Drug Abuse Patient Records regulations: The Federal rules restrict any use of the information to criminally investigate or prosecute any alcohol or drug abuse patient.[facility] SystemIn the event this information is protected by the Federal Confidentiality of Alcohol and Drug Abuse Patient Records regulations: The Federal rules restrict any use of the information to criminally investigate or prosecute any alcohol or drug abuse patient.[facility] SystemIn the event this information is protected by the Federal Confidentiality of Alcohol and Drug Abuse Patient Records regulations: The Federal rules restrict any use of the information to criminally investigate or prosecute any alcohol or drug abuse patient.[facility] SystemIn the event this information is protected by the Federal Confidentiality of Alcohol and Drug Abuse Patient Records regulations: The Federal rules restrict any use of the information to criminally investigate or prosecute any alcohol or drug abuse patient.[facility] SystemIn the event this information is protected by the Federal Confidentiality of Alcohol and Drug Abuse Patient Records regulations: The Federal rules restrict any use of the information to criminally investigate or prosecute any alcohol or drug abuse patient.[facility] SystemIn the event this information is protected by the Federal Confidentiality of Alcohol and Drug Abuse Patient Records regulations: The Federal rules restrict any use of the information to criminally investigate or prosecute any alcohol or drug abuse patient.[facility] SystemIn the event this information is protected by the Federal Confidentiality of Alcohol and Drug Abuse Patient Records regulations: The Federal rules restrict any use of the information to criminally investigate or prosecute any alcohol or drug abuse patient.[facility] SystemIn the event this information is protected by the Federal Confidentiality of Alcohol and Drug Abuse Patient Records regulations: The Federal rules restrict any use of the information to criminally investigate or prosecute any alcohol or drug abuse patient.[facility] SystemIn the event this information is protected by the Federal Confidentiality of Alcohol and Drug Abuse Patient Records regulations: The Federal rules restrict any use of the information to criminally investigate or prosecute any alcohol or drug abuse patient.[facility] SystemIn the event this information is protected by the Federal Confidentiality of Alcohol and Drug Abuse Patient Records regulations: The Federal rules restrict any use of the information to criminally investigate or prosecute any alcohol or drug abuse patient.[facility] SystemIn the event this information is protected by the Federal Confidentiality of Alcohol and Drug Abuse Patient Records regulations: The Federal rules restrict any use of the information to criminally investigate or prosecute any alcohol or drug abuse patient.[facility] SystemIn the event this information is protected by the Federal Confidentiality of Alcohol and Drug Abuse Patient Records regulations: The Federal rules restrict any use of the information to criminally investigate or prosecute any alcohol or drug abuse patient.[facility] SystemIn the event this information is protected by the Federal Confidentiality of Alcohol and Drug Abuse Patient Records regulations: The Federal rules restrict any use of the information to criminally investigate or prosecute any alcohol or drug abuse patient.[facility] SystemIn the event this information is protected by the Federal Confidentiality of Alcohol and Drug Abuse Patient Records regulations: The Federal rules restrict any use of the information to criminally investigate or prosecute any alcohol or drug abuse patient.[facility] SystemIn the event this information is protected by the Federal Confidentiality of Alcohol and Drug Abuse Patient Records regulations: The Federal rules restrict any use of the information to criminally investigate or prosecute any alcohol or drug abuse patient.[facility] SystemIn the event this information is protected by the Federal Confidentiality of Alcohol and Drug Abuse Patient Records regulations: The Federal rules restrict any use of the information to criminally investigate or prosecute any alcohol or drug abuse patient.[facility] SystemIn the event this information is protected by the Federal Confidentiality of Alcohol and Drug Abuse Patient Records regulations: The Federal rules restrict any use of the information to criminally investigate or prosecute any alcohol or drug abuse patient.[facility] SystemIn the event this information is protected by the Federal Confidentiality of Alcohol and Drug Abuse Patient Records regulations: The Federal rules restrict any use of the information to criminally investigate or prosecute any alcohol or drug abuse patient.[facility] SystemIn the event this information is protected by the Federal Confidentiality of Alcohol and Drug Abuse Patient Records regulations: The Federal rules restrict any use of the information to criminally investigate or prosecute any alcohol or drug abuse patient.[facility] SystemIn the event this information is protected by the Federal Confidentiality of Alcohol and Drug Abuse Patient Records regulations: The Federal rules restrict any use of the information to criminally investigate or prosecute any alcohol or drug abuse patient.[facility] SystemIn the event this information is protected by the Federal Confidentiality of Alcohol and Drug Abuse Patient Records regulations: The Federal rules restrict any use of the information to criminally investigate or prosecute any alcohol or drug abuse patient.[facility] SystemIn the event this information is protected by the Federal Confidentiality of Alcohol and Drug Abuse Patient Records regulations: The Federal rules restrict any use of the information to criminally investigate or prosecute any alcohol or drug abuse patient.[facility] SystemIn the event this information is protected by the Federal Confidentiality of Alcohol and Drug Abuse Patient Records regulations: The Federal rules restrict any use of the information to criminally investigate or prosecute any alcohol or drug abuse patient.[facility] SystemIn the event this information is protected by the Federal Confidentiality of Alcohol and Drug Abuse Patient Records regulations: The Federal rules restrict any use of the information to criminally investigate or prosecute any alcohol or drug abuse patient.[facility] SystemIn the event this information is protected by the Federal Confidentiality of Alcohol and Drug Abuse Patient Records regulations: The Federal rules restrict any use of the information to criminally investigate or prosecute any alcohol or drug abuse patient.[facility] SystemIn the event this information is protected by the Federal Confidentiality of Alcohol and Drug Abuse Patient Records regulations: The Federal rules restrict any use of the information to criminally investigate or prosecute any alcohol or drug abuse patient.[facility] SystemIn the event this information is protected by the Federal Confidentiality of Alcohol and Drug Abuse Patient Records regulations: The Federal rules restrict any use of the information to criminally investigate or prosecute any alcohol or drug abuse patient.[facility] SystemIn the event this information is protected by the Federal Confidentiality of Alcohol and Drug Abuse Patient Records regulations: The Federal rules restrict any use of the information to criminally investigate or prosecute any alcohol or drug abuse patient.[facility] SystemIn the event this information is protected by the Federal Confidentiality of Alcohol and Drug Abuse Patient Records regulations: The Federal rules restrict any use of the information to criminally investigate or prosecute any alcohol or drug abuse patient.[facility] SystemIn the event this information is protected by the Federal Confidentiality of Alcohol and Drug Abuse Patient Records regulations: The Federal rules restrict any use of the information to criminally investigate or prosecute any alcohol or drug abuse patient.[facility] SystemIn the event this information is protected by the Federal Confidentiality of Alcohol and Drug Abuse Patient Records regulations: The Federal rules restrict any use of the information to criminally investigate or prosecute any alcohol or drug abuse patient.[facility] SystemIn the event this information is protected by the Federal Confidentiality of Alcohol and Drug Abuse Patient Records regulations: The Federal rules restrict any use of the information to criminally investigate or prosecute any alcohol or drug abuse patient.[facility] SystemIn the event this information is protected by the Federal Confidentiality of Alcohol and Drug Abuse Patient Records regulations: The Federal rules restrict any use of the information to criminally investigate or prosecute any alcohol or drug abuse patient.[facility] SystemIn the event this information is protected by [...] or prosecute any alcohol or drug abuse patient.[facility] SystemIn the event this information is protected by the Federal Confidentiality of Alcohol and Drug Abuse Patient Records regulations: The Federal rules restrict any use of the information to criminally investigate or prosecute any alcohol or drug abuse patient.[facility] SystemIn the event this information is protected by the Federal Confidentiality of Alcohol and Drug Abuse Patient Records regulations: The Federal rules restrict any use of the information to criminally investigate or prosecute any alcohol or drug abuse patient.[facility] SystemIn the event this information is protected by the Federal Confidentiality of Alcohol and Drug Abuse Patient Records regulations: The Federal rules restrict any use of the information to criminally investigate or prosecute any alcohol or drug abuse patient.[facility] SystemIn the event this information is protected by the Federal Confidentiality of Alcohol and Drug Abuse Patient Records regulations: The Federal rules restrict any use of the information to criminally investigate or prosecute any alcohol or drug abuse patient.[facility] SystemIn the event this information is protected by the Federal Confidentiality of Alcohol and Drug Abuse Patient Records regulations: The Federal rules restrict any use of the information to criminally investigate or prosecute any alcohol or drug abuse patient.[facility] SystemIn the event this information is protected by the Federal Confidentiality of Alcohol and Drug Abuse Patient Records regulations: The Federal rules restrict any use of the information to criminally investigate or prosecute any alcohol or drug abuse patient.[facility] SystemIn the event this information is protected by the Federal Confidentiality of Alcohol and Drug Abuse Patient Records regulations: The Federal rules restrict any use of the information to criminally investigate or prosecute any alcohol or drug abuse patient.[facility] SystemIn the event this information is protected by the Federal Confidentiality of Alcohol and Drug Abuse Patient Records regulations: The Federal rules restrict any use of the information to criminally investigate or prosecute any alcohol or drug abuse patient.[facility] SystemIn the event this information is protected by the Federal Confidentiality of Alcohol and Drug Abuse Patient Records regulations: The Federal rules restrict any use of the information to criminally investigate or prosecute any alcohol or drug abuse patient.[facility] SystemIn the event this information is protected by the Federal Confidentiality of Alcohol and Drug Abuse Patient Records regulations: The Federal rules restrict any use of the information to criminally investigate or prosecute any alcohol or drug abuse patient.[facility] SystemIn the event this information is protected by the Federal Confidentiality of Alcohol and Drug Abuse Patient Records regulations: The Federal rules restrict any use of the information to criminally investigate or prosecute any alcohol or drug abuse patient.[facility] SystemIn the event this information is protected by the Federal Confidentiality of Alcohol and Drug Abuse Patient Records regulations: The Federal rules restrict any use of the information to criminally investigate or prosecute any alcohol or drug abuse patient.[facility] SystemIn the event this information is protected by the Federal Confidentiality of Alcohol and Drug Abuse Patient Records regulations: The Federal rules restrict any use of the information to criminally investigate or prosecute any alcohol or drug abuse patient.[facility] SystemIn the event this information is protected by the Federal Confidentiality of Alcohol and Drug Abuse Patient Records regulations: The Federal rules restrict any use of the information to criminally investigate or prosecute any alcohol or drug abuse patient.[facility] SystemIn the event this information is protected by the Federal Confidentiality of Alcohol and Drug Abuse Patient Records regulations: The Federal rules restrict any use of the information to criminally investigate or prosecute any alcohol or drug abuse patient.[facility] SystemIn the event this information is protected by the Federal Confidentiality of Alcohol and Drug Abuse Patient Records regulations: The Federal rules restrict any use of the information to criminally investigate or prosecute any alcohol or drug abuse patient.[facility] SystemIn the event this information is protected by the Federal Confidentiality of Alcohol and Drug Abuse Patient Records regulations: The Federal rules restrict any use of the information to criminally investigate or prosecute any alcohol or drug abuse patient.[facility] SystemIn the event this information is protected by the Federal Confidentiality of Alcohol and Drug Abuse Patient Records regulations: The Federal rules restrict any use of the information to criminally investigate or prosecute any alcohol or drug abuse patient.[facility] SystemIn the event this information is protected by the Federal Confidentiality of Alcohol and Drug Abuse Patient Records regulations: The Federal rules restrict any use of the information to criminally investigate or prosecute any alcohol or drug abuse patient.[facility] SystemIn the event this information is protected by the Federal Confidentiality of Alcohol and Drug Abuse Patient Records regulations: The Federal rules restrict any use of the information to criminally investigate or prosecute any alcohol or drug abuse patient.[facility] SystemIn the event this information is protected by the Federal Confidentiality of Alcohol and Drug Abuse Patient Records regulations: The Federal rules restrict any use of the information to criminally investigate or prosecute any alcohol or drug abuse patient.[facility] SystemIn the event this information is protected by the Federal Confidentiality of Alcohol and Drug Abuse Patient Records regulations: The Federal rules restrict any use of the information to criminally investigate or prosecute any alcohol or drug abuse patient.[facility] SystemIn the event this information is protected by the Federal Confidentiality of Alcohol and Drug Abuse Patient Records regulations: The Federal rules restrict any use of the information to criminally investigate or prosecute any alcohol or drug abuse patient.[facility] SystemIn the event this information is protected by the Federal Confidentiality of Alcohol and Drug Abuse Patient Records regulations: The Federal rules restrict any use of the information to criminally investigate or prosecute any alcohol or drug abuse patient.[facility] SystemIn the event this information is protected by the Federal Confidentiality of Alcohol and Drug Abuse Patient Records regulations: The Federal rules restrict any use of the information to criminally investigate or prosecute any alcohol or drug abuse patient.[facility] SystemIn the event this information is protected by the Federal Confidentiality of Alcohol and Drug Abuse Patient Records regulations: The Federal rules restrict any use of the information to criminally investigate or prosecute any alcohol or drug abuse patient.[facility] SystemIn the event this information is protected by the Federal Confidentiality of Alcohol and Drug Abuse Patient Records regulations: The Federal rules restrict any use of the information to criminally investigate or prosecute any alcohol or drug abuse patient.[facility] SystemIn the event this information is protected by the Federal Confidentiality of Alcohol and Drug Abuse Patient Records regulations: The Federal rules restrict any use of the information to criminally investigate or prosecute any alcohol or drug abuse patient.[facility] SystemIn the event this information is protected by the Federal Confidentiality of Alcohol and Drug Abuse Patient Records regulations: The Federal rules restrict any use of the information to criminally investigate or prosecute any alcohol or drug abuse patient.[facility] SystemIn the event this information is protected by the Federal Confidentiality of Alcohol and Drug Abuse Patient Records regulations: The Federal rules restrict any use of the information to criminally investigate or prosecute any alcohol or drug abuse patient.[facility] SystemIn the event this information is protected by the Federal Confidentiality of Alcohol and Drug Abuse Patient Records regulations: The Federal rules restrict any use of the information to criminally investigate or prosecute any alcohol or drug abuse patient.[facility] SystemIn the event this information is protected by the Federal Confidentiality of Alcohol and Drug Abuse Patient Records regulations: The Federal rules restrict any use of the information to criminally investigate or prosecute any alcohol or drug abuse patient.[facility] SystemIn the event this information is protected by the Federal Confidentiality of Alcohol and Drug Abuse Patient Records regulations: The Federal rules restrict any use of the information to criminally investigate or prosecute any alcohol or drug abuse patient.[facility] SystemIn the event this information is protected by the Federal Confidentiality of Alcohol and Drug Abuse Patient Records regulations: The Federal rules restrict any use of the information to criminally investigate or prosecute any alcohol or drug abuse patient.[facility] SystemIn the event this information is protected by the Federal Confidentiality of Alcohol and Drug Abuse Patient Records regulations: The Federal rules restrict any use of the information to criminally investigate or prosecute any alcohol or drug abuse patient.[facility] SystemIn the event this information is protected by the Federal Confidentiality of Alcohol and Drug Abuse Patient Records regulations: The Federal rules restrict any use of the information to criminally investigate or prosecute any alcohol or drug abuse patient.[facility] SystemIn the event this information is protected by the Federal Confidentiality of Alcohol and Drug Abuse Patient Records regulations: The Federal rules restrict any use of the information to criminally investigate or prosecute any alcohol or drug abuse patient.[facility] SystemIn the event this information is protected by the Federal Confidentiality of Alcohol and Drug Abuse Patient Records regulations: The Federal rules restrict any use of the information to criminally investigate or prosecute any alcohol or drug abuse patient.[facility] SystemIn the event this information is protected by the [facility] Confidentiality of Alcohol and Drug Abuse Patient Records regulations: The Federal rules restrict any use of the information to criminally investigate or prosecute any alcohol or drug abuse patient.[facility] SystemIn the event this information is protected by the Federal Confidentiality of Alcohol and Drug Abuse Patient Records regulations: The Federal rules restrict any use of the information to criminally investigate or prosecute any alcohol or drug abuse patient.[facility] Reason for Visit (unrecogniz ed section and content) Reason Comments Established Patient Specialty Diagnoses / Procedures Referred By Carrie t Referred To Contact LABORATORY MEDICINE Diagnoses NA Procedures NA Lab [facility] [address] [place] [address] Referral ID Status Reason Start Date Expiration Date Visits Re quested Visits Authorized [id number] 1 1 Reason Comments Chemotherapy Treatment Specialty Diagnoses / Procedures Referred By Contac t Referred To Contact Diagnoses 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) Procedures Paclitaxel Protein-Bound IV [place] [address] [place] [address] [facility] [address] [place] [address] Referral ID Status Reason Start Date Expiration Date V isits Requested Visits Authorized [id number] Authorized 10/30/2023 11/18/2024 99 99 Specialty Diagnoses / Procedures Referred By Contac t Referred To Contact HEMATOLOGY/ONCOLOGY Diagnoses NA Procedures NA [facility] [address] [place] [address] Referral ID Status Reason Start Date Expiration Date Visits Re quested Visits Authorized [id number] 1 1 Reason Comments Recheck Specialty Diagnoses / Procedures Referred By Contac t Referred To Contact Radiation Oncology / RADIATION ONCOLOGY Diagnoses Secondary and unspecified malignant neoplasm of intrathoracic lymph nodes Location: W-ON TREATMENT VISIT Activity: ON TREATMENT VISIT Procedures OFFICE/OUTPATIENT ESTABLISHED HIGH MDM 40 MIN ON TREATMENT VISIT [facility] Medical Vimal Stoner MD [address] [facility] [place] [address] Referral ID Status Reason Start Date Expiration Date V isits Requested Visits Authorized [id number] Authorized 10/30/2023 11/18/2024 99 99 Reason Comments Patient Education For radiation treatm ent to left lower lung Reason Comments New Patient Specialty Diagnoses / Procedures Referred By Contac t Referred To Contact RADIATION ONCOLOGY Diagnoses Secondary and unspecified malignant neoplasm of intrathoracic lymph nodes STAGE III LUNG CANCER Procedures OFFICE/OUTPATIENT ESTABLISHED HIGH MDM 40 MIN RADIATION THERAPY Center, [facility] Medical [facility] [address] [place] [address] Referral ID Status Reason Start Date Expiration Date V isits Requested Visits Authorized [id number] Authorized 10/30/2023 10/29/2024 999 999 Reason Comments Establish Care 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 Specialty Diagnoses / Procedures Referred By Contac t Referred To Contact Internal Medicine / INTERNAL MEDICINE Diagnoses Medicare Wellness Procedures 4C [place] Self Jose Brennan APRN.[employer] [address] [place] [address] Referral ID Status Reason Start Date Expiration Date V isits Requested Visits Authorized [id number] Closed Financial Clearance Required - OON Payor [...] exam 4 month follow up Procedures OFFICE/OUTPATIENT [facility] MDM [address] [place], [place] [address]t [facility] Affairs Medical Jose Brennan APRN.[facility] [address] [place] [address] Referral ID Status Reason Start Date Expiration Date Visits Re quested Visits Authorized [id number] Closed 10/30/2023 10/29/2024 1 1 Reason Comments Consult Reason Onset Date Comments Simulation Request Form 11/14/2023 Reason Comments Patient Education Specialty Diagnoses / Procedures Referred By Contac t Referred To Contact Radiation Oncology / RADIATION ONCOLOGY Diagnoses Lung cancer (HCC) Location: W-NURSING Activity: PT. EDUCATION Procedures OFFICE/OUTPATIENT [facility] 60 MINUTES NURSE VISIT Self Wstr, Nurse [facility] [address] [place] [address] Referral ID Status Reason Start Date Expiration Date Visits Re quested Visits Authorized [id number] Closed 10/29/2023 04/26/2024 1 1 Reason Comments Care Coordination Introduction Specialty Diagnoses / Procedures Referred By Contac t Referred To Contact Hematology / HEMATOLOGY/ONCOLOGY Diagnoses chemo education phone call Procedures PROVIDER SPECIALTY PHONE CALL Self Wstr, Evaporator Repairer [facility] [address] [place] [address] Referral ID Status Reason Start Date Expiration Date V isits Requested Visits Authorized [id number] Authorized 10/30/2023 11/18/2024 99 99 Specialty Diagnoses / Procedures Referred By Contac t Referred To Contact Diagnoses 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) Procedures CARBOPLATIN INJECTION INJECTION, PEMETREXED, NOT OTHERWISE SPECIFIED, 10 MG [place] [address] [place] [address] Ad[facility] [address] [place] [address] Referral ID Status Reason Start Date Expiration Date V isits Requested Visits Authorized [id number] Authorized 11/19/2023 11/18/2024 99 99 Reason Comments [...] plus sim Vimal Stoner MD [address] [place] [address] [facility] [address] [place] [address] Referral ID Status Reason Start Date Expiration Date Visits Requested Visits Authorized [id number] Authorized PCP Requested Referral 10/29/2023 04/26/2024 36 [...] HIGH MDM 40 MIN [facility] Medical Josephine Power MD [address] [place] [address] Referral ID Status Reason Start Date Expiration Date V isits Requested Visits Authorized [id number] Authorized 10/30/2023 11/18/2024 99 99 Specialty Diagnoses / Procedures Referred By Contac t Referred To Contact Hematology/Oncology / HEMATOLOGY/ONCOLOGY Diagnoses Secondary and unspecified malignant neoplasm of intrathoracic lymph nodes OV/LABS TODAY/ CHEMO 12/14* Procedures OFFICE/OUTPATIENT ESTABLISHED HIGH MDM 40 MIN EST PATIENT W/[place] [address] [place] [id number] [place] [address] [place] [id number] Referral ID Status Reason Start Date Expiration Date Visits Re quested Visits Authorized [id number] Closed 10/30/2023 11/18/2024 1 1 Referral ID Status Reason Start Date Expiration Date V isits Requested Visits Authorized [id number] Pending Review 11/19/2023 11/18/2024 99 99 Reason Comments Headache Specialty Diagnoses / Procedures Referred By Contac t Referred To Contact Radiation Oncology / RADIATION ONCOLOGY Diagnoses Location: W-ON TREATMENT VISIT Activity: ON TREATMENT VISIT Procedures ON TREATMENT VISIT Jose Brennan APRN.[facility] [address] [place] [address] Vimal Stoner MD [address] [place] [address] Referral ID Status Reason Start Date Expiration Date Visits Re quested Visits Authorized [id number] Closed 12/17/2023 09/07/2024 1 1 Reason Comments Social Work Services Specialty Diagnoses / Procedures Referred By Contac t Referred To Contact Radiation Oncology / RADIATION ONCOLOGY Diagnoses 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) Location: W-ON TREATMENT VISIT Activity: ON TREATMENT VISIT Procedures OFFICE/OUTPATIENT ESTABLISHED HIGH MDM 40 MIN [facility] Medical Vimal Stoner MD [address] [place] [address] Referral ID Status Reason Start Date Expiration Date Visits Re quested Visits Authorized [id number] Closed 10/30/2023 11/18/2024 1 1 Reason Comments Benefits Investigation Referral ID Status Reason Start Date Expiration Date Visits Re quested Visits Authorized [id number] Closed 10/30/2023 11/18/2024 1 1 Reason Comments [...] 40 MIN 4C EST Self Jose Brennan APRN.[employer] [address] [place] [address] Referral ID Status Reason Start Date Expiration Date Visits Re quested Visits Authorized [id number] Closed 10/30/2023 11/18/2024 1 1 Reason Comments Care Coordination Change in Treatment Reason Comments Established Patient Specialty Diagnoses / Procedures Referred By Contac t Referred To Contact Hematology/Oncology / HEMATOLOGY/ONCOLOGY Diagnoses Secondary and unspecified malignant neoplasm of intrathoracic lymph nodes OV/LABS TODAY/ CHEMO 12/14* Procedures OFFICE/OUTPATIENT ESTABLISHED HIGH MDM 40 MIN EST PATIENT W/[place] [address] [place] [address] [place] [address] [place] [address] Specialty Diagnoses / Procedures Referred By Contac t Referred To Contact Radiation Oncology / RADIATION ONCOLOGY Diagnoses Secondary and unspecified malignant neoplasm of intrathoracic lymph nodes Location: W-ON TREATMENT VISIT Activity: ON TREATMENT VISIT Procedures OFFICE/OUTPATIENT ESTABLISHED HIGH MDM 40 MIN [facility] Vimal Stoner MD [address] [facility] [place] [address] Specialty Diagnoses / Procedures Referred By Contac t Referred To Contact CT IMAGING Diagnoses Malignant neoplasm of unspecified part of unspecified bronchus or lung (HCC) Procedures CT CHEST W IVCON DIAGNOSTIC COMPUTED TOMOGRAPHY THORAX W/[place] [address] [place] [address] [place] [address] Referral ID Status Reason Start Date Expiration Date V isits Requested Visits Authorized [id number] Closed Auto-Generate d Referral 10/30/2023 11/18/2024 1 1 Specialty Diagnoses / Procedures Referred By Contac t Referred To Contact Hematology / HEMATOLOGY/ONCOLOGY Diagnoses chemo education phone call Procedures PROVIDER SPECIALTY PHONE CALL Self Ws, Evaporator Repairer [facility] [facility] [address] [place] [address] Specialty Diagnoses / Procedures Referred By Contac t Referred To Contact Internal Medicine / INTERNAL MEDICINE Diagnoses Secondary and unspecified malignant neoplasm of intrathoracic lymph nodes Follow-up exam 4 mo follow up Procedures OFFICE/OUTPATIENT ESTABLISHED HIGH MDM 40 MIN 4C EST Jose Brennan APRN.[employer] [address] [place] [address] Jose Brennan APRN.[facility] [address] [place] [address] Referral ID Status Reason Start Date Expiration Date Visits Re quested Visits Authorized [id number] Closed 10/30/2023 11/18/2024 1 1 Specialty Diagnoses / Procedures Referred By Contac t Referred To Contact Diagnoses 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) Procedures INJ., DURVALUMAB, 10 [place] [address] [id number] [place] [address] Referral ID Status Reason Start Date Expiration Date V isits Requested Visits Authorized [id number] Authorized 11/19/2023 11/18/2024 99 99 Specialty Diagnoses / Procedures Referred By Contac t Referred To Contact Diagnoses 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) Procedures INJ., DURVALUMAB, 10 [place] [address] [place] [address] [facility] [address] [place] [address] Reason Comments Care Coordination CYCLE 1/DAY 1 POST T REATMENT CALL Reason Comments Erroneous encounter-disregard Reason Comments Future Appointment Reason Comments Evaporator Repairer - Other Toxicity Check Reason Onset Date [...] 40 MIN 4C EST Self Jose Brennan APRN.[employer] [address] [place] [address] Referral ID Status Reason Start Date Expiration Date V isits Requested Visits Authorized [id number] Denied Patient Cleared - Admin/Chairm an/Director advise to proceed or did not respond 05/18/2024 08/16/2024 1 0 Reason Comments Established Patient OV, labs, treatment 05/31. Increase in pain and weakness in arms and legs. reports lots of ibuprofen 4 every 3-4 hours, also taking naproxen, aleve. 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) [C77.1] Procedures [place] [address] [place] [address] Mobile [facility] [address] [place] [address] Referral ID Status Reason Start Date Expiration Date Visits Re quested Visits Authorized [id number] Closed 05/31/2024 08/29/2024 1 1 Reason Comments Patient Update Reason Comments AVS 06/04/24 - BX Reason Comments Evaporator Repairer - ED Follow Up Reason Comments Care Coordination Update to [facility] and ne[facility] d for testing Specialty Diagnoses / Procedures Referred By Contac t Referred To Contact Radiology Diagnoses Dyspnea, unspecified type Procedures XR CHEST PA+LAT 2 VIEWS Anne-Marie Constantino [address] [place] [address] [facility] DIAGNOSTIC RADIOLOGY [address] [place] [address] [place] [address] Referral ID Status Reason Start Date Expiration Date Visits Re quested Visits Authorized [id number] Closed 06/21/2024 06/21/2025 1 1 Reason Onset Date Comments Recheck Rash on face and [facility] h as been treating it was ketoconazole shampoo and cream Immunizations 07/19/2024 Flu vaccination Specialty Diagnoses / Procedures Referred By Carrie kaur Referred To Contact INTERNAL MEDICINE Diagnoses n/a Procedures n/a Intm [facility] [address] [place] [address] Referral ID Status Reason Start Date Expiration Date Visits Re quested Visits Authorized [id number] 1 1 Reason Comments Evaporator Repairer - Other Foundation One Testing Reason Onset Date Comments Population Health Navigation Outreach 08/03/2024 [facility] Reason Comments Evaporator Repairer - Other Change in Treat ment Referral ID Status Reason Start Date Expiration Date Visits Re quested Visits Authorized [id number] 1 1 Reason Comments AVS Reason Comments Care Coordination Specialty Diagnoses / Procedures Referred By Carrie kaur Referred To Contact Diagnoses 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) Procedures Paclitaxel Protein-Bound [place] [address] [place] [address] [facility] [address] [place] [address] Reason Onset Date Comments Refill Request 08/16/2024 Specialty Diagnoses / Procedures Referred By Carrie kaur Referred To Contact Diagnoses 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) Procedures [id number]-Xdwxyyjggn Protein-Bound [place] [address] [place] [address] [facility] [address] [place] [address] Specialty Diagnoses / Procedures Referred By Contac t Referred To Contact Diagnoses 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) Procedures Y5739-Ozjxcoixle Protein-Bound IV [place] - [place] [address] [id number] [facility] [address] [place] [address] Reason Comments Medication Problem Reason Onset Date Comments Refill Request 10/06/2024 Reason Comments Care Coordination Cold symptoms Specialty Diagnoses / Procedures Referred By Katerineac t Referred To Contact Hematology / HEMATOLOGY/ONCOLOGY Diagnoses chemo education phone call Procedures PROVIDER SPECIALTY PHONE CALL Self [facility], Evaporator Repairer [facility] [address] [place] [address] Phone: tel: fax: Reason Onset Date Comments Refill Request 11/04/2024 Specialty Diagnoses / Procedures Referred By [facility] Referred To Contact Diagnoses 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) Procedures PACLITAXEL PROTEIN BOUND [id number]-Ovcgqvapqp Protein-Bound [place] [address] [id number] Phone: tel: fax: Hematology/Oncology [address] [place] [address] Phone: tel: fax: Referral ID Status Reason Start Date Expiration Date V isits Requested Visits Authorized [id number] Authorized 10/30/2023 12/20/2024 99 99 Reason Comments Radiology NM Specialty Diagnoses / Procedures Referred By Carrie t Referred To Contact MOLECULAR & FUNCTIONAL IMAGING Diagnoses 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) Procedures NM PET/CT SKULL-THIGH SUBSEQUENT PET IMAGING CT ATTENUATION SKULL [place] [address] [address] [id number] Phone: tel: fax: Molecular Imaging [address] [place], [place] [address] Phone: tel: Referral ID Status Reason Start Date Expiration Date V isits Requested Visits Authorized [id number] Closed Auto-Generate d Referral 06/23/2024 12/20/2024 2 2 Specialty Diagnoses / Procedures Referred By Contac t Referred To Contact Hematology/Oncology / HEMATOLOGY/ONCOLOGY Diagnoses Secondary malignant neoplasm of bone Procedures OFFICE/OUTPATIENT ESTABLISHED HIGH MDM 40 MIN Roger Dorsey MD [address] [facility] [place] [address] Phone: tel: fax: [place] [address] [place] [address] Phone: tel: fax: Referral ID Status Reason Start Date Expiration Date Visits Re quested Visits Authorized [id number] Closed 06/18/2024 12/20/2024 1 1 Reason Comments [...] follow up Procedures 4C EST Jose Brennan APRN.[employer] [address] [place] [address] Phone: tel: fax: Jose Brennan APRN.[employer] [address] [place] [address] Phone: tel: fax: Referral ID Status Reason Start Date Expiration Date V isits Requested Visits Authorized [id number] New Request 01/17/2025 04/17/2025 1 1 Reason Onset Date Comments Results 11/19/2024 Reason Comments supplies returned Reason Comments Social Work Services PET Scan Coverage Reason Comments Recheck discuss x-raysfeels that duloxetine 60 mg is causing GI upset. Reason Comments Social Work Services Scheduling Request Care Teams (unrecognized sec tion and content) Medical Technician Relationship Specialty Start Date End Date Jose Brennan APRN.[employer] STRAINING BAG WASHER [facility] [place] [address] PCP - General Internal Medicine 01/10/23 Medical Technician Relationship Specialty Start Date End Date Jose Brennan APRN.[employer] [address] [place] [address] PCP - General Internal Medicine 01/10/23 Medical Technician Relationship Specialty Start Date End Date Jose Brennan APRN.[employer] [address] [place] [address] PCP - General Internal Medicine 01/10/23 Medical Technician Relationship Specialty Start Date End Date Jose Brennan APRN.[employer] W[employer] [address] [place] [address] PCP - General Internal Medicine 01/10/23 Medical Technician Relationship Specialty Start Date End Date Jose Brennan APRN.[employer] W[employer] [address] [place] [address] PCP - General Internal Medicine 01/10/23 Medical Technician Relationship Specialty Start Date End Date Jose Brennan APRN.[employer]AG W[employer] [address] [place] [address] PCP - General Internal Medicine 01/10/23 Medical Technician Relationship Specialty Start Date End Date Jose Brennan APRN.[employer] W[employer] [address] [place] [address] PCP - General Internal Medicine 01/10/23 Vimal Stoner MD [address] [place] [address] Physician Radiation Oncology 11/07/23 Medical Technician Relationship Specialty Start Date End Date Jose Brennan APRN.[employer] W[employer] [address] [place] [address] PCP - General Internal Medicine 01/10/23 Vimal Stoner MD [address] [place] [address] Physician Radiation Oncology 11/07/23 Medical Technician Relationship Specialty Start Date End Date Jose Brennan APRN.[employer] STRAINING BAG WASHER [facility] [place] [address] PCP - General Internal Medicine 01/10/23 Vimal Stoner MD [address] [place] [address] Physician Radiation Oncology 11/07/23 Medical Technician Relationship Specialty Start Date End Date Jose Brennan APRN.[employer] STRAINING BAG WASHER [facility] [place] [address] PCP - General Internal Medicine 01/10/23 Vimal Stoner MD [address] [place] [address] Physician Radiation Oncology 11/07/23 Medical Technician Relationship Specialty Start Date End Date Jose Brennan APRN.[employer] [address] [place] [address] PCP - General Internal Medicine 01/10/23 Vimal Stoner MD [address] [place] [address] Physician Radiation Oncology 11/07/23 Medical Technician Relationship Specialty Start Date End Date Jose Brennan APRN.[employer]AG WASHER [address] [place] [address] PCP - General Internal Medicine 01/10/23 Vimal Stoner MD [address] [place] [address] Physician Radiation Oncology 11/07/23 Medical Technician Relationship Specialty Start Date End Date Jose Brennan APRN.[employer] W[employer] [address] [place] [address] PCP - General Internal Medicine 01/10/23 Vimal Stoner MD [address] [place] [address] Physician Radiation Oncology 11/07/23 Medical Technician Relationship Specialty Start Date End Date Jose Brennan APRN.[employer] STR[employer] WASHER [address] [place] [address] PCP - General Internal Medicine 01/10/23 Vimal Stoner MD [address] [place] [address] Physician Radiation Oncology 11/07/23 Roger Dorsey MD [address] [place] [address] Hematology/Oncology 11/19/23 Brittani Aguila, JAMEY [address] [place] [address] Hematology/Oncology 11/19/23 Medical Technician Relationship Specialty Start Date End Date Jose Brennan APRN.[employer] STR[employer] BAG WASHER [address] [facility] [place] [address] PCP - General Internal Medicine 01/10/23 Vimal Stoner MD [address] [place] [address] Physician Radiation Oncology 11/07/23 Roger Dorsey MD [address] [place] [address] Hematology/Oncology 11/19/23 Brittani Aguila, JAMEY [address] [place] [address] Hematology/Oncology 11/19/23 Medical Technician Relationship Specialty Start Date End Date Jose Brennan APRN.[employer] STR[employer] BAG WASHER [address] [place] [address] PCP - General Internal Medicine 01/10/23 Vimal Stoner MD [address] [place] [address] Physician Radiation Oncology 11/07/23 Roger Dorsey MD [address] [place] [address] Hematology/Oncology 11/19/23 Brittani Aguila, JAMEY [address] [place] [address] Hematology/Oncology 11/19/23 Medical Technician Relationship Specialty Start Date End Date Jose Brennan APRN.[employer] STRAINING BAG WASHER [address] [facility] [place] [address] PCP - General Internal Medicine 01/10/23 Vimal Stoner MD [address] [place] [address] Physician Radiation Oncology 11/07/23 Roger Dorsey MD [address] [place] [address] Hematology/Oncology 11/19/23 Brittani Aguila, JAMEY [address] [place] [address] Hematology/Oncology 11/19/23 Medical Technician Relationship Specialty Start Date End Date Jose Brennan APRN.COLOR STRAINING BAG WASHER [address] [facility] [place] [address] PCP - General Internal Medicine 01/10/23 Vimal Stoner MD [address] [place] [address] Physician Radiation Oncology 11/07/23 Roger Dorsey MD [address] [place] [address] Hematology/Oncology 11/19/23 Brittani Aguila, JAMEY [address] [place] [address] Hematology/Oncology 11/19/23 Medical Technician Relationship Specialty Start Date End Date Jose Brennan APRN.[employer] STR[employer]ING BAG WASHER [address] [facility] [place] [address] PCP - General Internal Medicine 01/10/23 Vimal Stoner MD [address] [place] [address] Physician Radiation Oncology 11/07/23 Roger Dorsey MD [address] [place] [address] Hematology/Oncology 11/19/23 Brittani Aguila, JAMEY [address] [place] [address] Hematology/Oncology 11/19/23 Medical Technician Relationship Specialty Start Date End Date Jose Brennan APRN.[employer] STRAINING BAG WASHER [address] [facility] [place] [address] PCP - General Internal Medicine 01/10/23 Vimal Stoner MD [address] [place] [address] Physician Radiation Oncology 11/07/23 Roger Dorsey MD [address] [place] [address] Hematology/Oncology 11/19/23 Brittani Aguila RN [address] [place] [address] Hematology/Oncology 11/19/23 Medical Technician Relationship Specialty Start Date End Date Jose Brennan MINING SUPPORT WORKER.[employer] STR[employer]AG WASHER [address] [facility] [place] [address] PCP - General Internal Medicine 01/10/23 Vimal Stoner MD [address] [place] [address] Physician Radiation Oncology 11/07/23 Roger Dorsey MD [address] [place] [address] Hematology/Oncology 11/19/23 Brittani Aguila, JAMEY [address] [place] [address] Hematology/Oncology 11/19/23 Medical Technician Relationship Specialty Start Date End Date Jose Brennan, MINING SUPPORT WORKER.COLOR STRAINING BAG WASHER [address] [place] [address] PCP - General Internal Medicine 01/10/23 Vimal Stoner MD [address] [place] [address] Physician Radiation Oncology 11/07/23 Roger Dorsey MD [address] [place] [address] Hematology/Oncology 11/19/23 Brittani Aguila, RN [address] [place] [address] Hematology/Oncology 11/19/23 Medical Technician Relationship Specialty Start Date End Date Jose Brennan, MINING SUPPORT WORKER.COLOR STRAINING BAG WASHER [address] [place] [address] PCP - General Internal Medicine 01/10/23 Vimal Stoner MD [address] [place] [address] Physician Radiation Oncology 11/07/23 Roger Dorsey MD [address] [place] [address] Hematology/Oncology 11/19/23 Brittani Aguila RN [address] [place] [address] Hematology/Oncology 11/19/23 Medical Technician Relationship Specialty Start Date End Date Jose Brennan MINING SUPPORT WORKER.[employer] STR[employer]ING BAG WASHER [address] [facility] [place] [address] PCP - General Internal Medicine 01/10/23 Vimal Stoner MD [address] [place] [address] Physician Radiation Oncology 11/07/23 Roger Dorsey MD [address] [place] [address] Hematology/Oncology 11/19/23 Brittani Aguila RN [address] [place] [address] Hematology/Oncology 11/19/23 Medical Technician Relationship Specialty Start Date End Date Jose Brennan, MINING SUPPORT WORKER.COLOR STRAINING BAG WASHER [address] [facility] [place] [address] PCP - General Internal Medicine 01/10/23 Vimal Stoner MD [address] [place] [address] Physician Radiation Oncology 11/07/23 Roger Dorsey MD [address] [place] [address] Hematology/Oncology 11/19/23 Brittani Aguila RN [address] [place] [address] Hematology/Oncology 11/19/23 Medical Technician Relationship Specialty Start Date End Date Jose Brennan APRN.COLOR STRAINING BAG WASHER [address] [facility] [place] [address] PCP - General Internal Medicine 01/10/23 Vimal Stoner MD [address] [place] [address] Physician Radiation Oncology 11/07/23 Roger Dorsey MD [address] [place] [address] Hematology/Oncology 11/19/23 Brittani Aguila RN [address] [place] [address] Hematology/Oncology 11/19/23 Medical Technician Relationship Specialty Start Date End Date Jose Brennan APRN.COLOR STRAINING BAG WASHER [address] [facility] [place] [address] PCP - General Internal Medicine 01/10/23 Vimal Stoner MD [address] [place] [address] Physician Radiation Oncology 11/07/23 Roger Dorsey MD [address] [place] [address] Hematology/Oncology 11/19/23 Brittani Aguila, JAMEY [address] [place] [address] Hematology/Oncology 11/19/23 Medical Technician Relationship Specialty Start Date End Date Jose Brennan APRN.COLOR STRAINING BAG WASHER [address] [place] [address] PCP - General Internal Medicine 01/10/23 Vimal Stoner MD [address] [place] [address] Physician Radiation Oncology 11/07/23 Roger Dorsey MD [address] [place] [address] Hematology/Oncology 11/19/23 Brittani Aguila, JAMEY [address] [place] [address] Hematology/Oncology 11/19/23 Medical Technician Relationship Specialty Start Date End Date Jose Brenann APRN.COLOR STRAINING BAG WASHER [address] [place] [address] PCP - General Internal Medicine 01/10/23 Vimal Stoner MD [address] [place] [address] Physician Radiation Oncology 11/07/23 Roger Dorsey MD [address] [place] [address] Hematology/Oncology 11/19/23 Brittani Aguila, JAMEY [address] [place] [address] Hematology/Oncology 11/19/23 Medical Technician Relationship Specialty Start Date End Date Jose Brennan APRN.COLOR STRAINING BAG WASHER [address] [place] [address] PCP - General Internal Medicine 01/10/23 Vimal Stoner MD [address] [place] [address] Physician Radiation Oncology 11/07/23 Roger Dorsey MD [address] [place] [address] Hematology/Oncology 11/19/23 Brittani Aguila, JAMEY [address] [place] [address] Hematology/Oncology 11/19/23 Medical Technician Relationship Specialty Start Date End Date Jose Brennan APRN.COLOR STRAINING BAG WASHER [address] [facility] [place] [address] PCP - General Internal Medicine 01/10/23 Vimal Stoner MD [address] [place] [address] Physician Radiation Oncology 11/07/23 Roger Dorsey MD [address] [place] [address] Hematology/Oncology 11/19/23 Brittani Aguila, JAMEY [address] [place] [address] Hematology/Oncology 11/19/23 Medical Technician Relationship Specialty Start Date End Date Jose Brennan APRN.COLOR STRAINING BAG WASHER [address] [place] [address] PCP - General Internal Medicine 01/10/23 Vimal Stoner MD [address] [place] [address] Physician Radiation Oncology 11/07/23 Roger Dorsey MD [address] [place] [address] Hematology/Oncology 11/19/23 Brittani Aguila RN [address] [place] [address] Hematology/Oncology 11/19/23 Medical Technician Relationship Specialty Start Date End Date Jose Brennan APRN.COLOR STRAINING BAG WASHER [address] [place] [address] PCP - General Internal Medicine 01/10/23 Vimal Stoner MD [address] [place] [address] Physician Radiation Oncology 11/07/23 Roger Dorsey MD [address] [place] [address] Hematology/Oncology 11/19/23 Brittani Aguila, JAMEY [address] [place] [address] Hematology/Oncology 11/19/23 Medical Technician Relationship Specialty Start Date End Date Jose Brennan MINING SUPPORT WORKER.COLOR STRAINING BAG WASHER [address] [facility] [place] [address] PCP - General Internal Medicine 01/10/23 Vimal Stoner MD [address] [place] [address] Physician Radiation Oncology 11/07/23 Roger Dorsey MD [address] [place] [address] Hematology/Oncology 11/19/23 Brittani Aguila, JAMEY [address] [place] [address] Hematology/Oncology 11/19/23 Medical Technician Relationship Specialty Start Date End Date Jose Brennan MINING SUPPORT WORKER.COLOR STRAINING BAG WASHER [address] [facility] [place] [address] PCP - General Internal Medicine 01/10/23 Vimal Stoner MD [address] [place] [address] Physician Radiation Oncology 11/07/23 Roger Dorsey MD [address] [place] [address] Hematology/Oncology 11/19/23 Brittani Aguila, JAMEY [address] [place] [address] Hematology/Oncology 11/19/23 Medical Technician Relationship Specialty Start Date End Date Jose Brennan APRN.COLOR STRAINING BAG WASHER [address] [facility] [place] [address] PCP - General Internal Medicine 01/10/23 Vimal Stoner MD [address] [place] [address] Physician Radiation Oncology 11/07/23 Roger Dorsey MD [address] [place] [address] Hematology/Oncology 11/19/23 Brittani Aguila, JAMEY [address] [place] [address] Hematology/Oncology 11/19/23 Medical Technician Relationship Specialty Start Date End Date Jose Brennan, MINING SUPPORT WORKER.COLOR STRAINING BAG WASHER [address] [place] [address] PCP - General Internal Medicine 01/10/23 Vimal Stoner MD [address] [place] [address] Physician Radiation Oncology 11/07/23 Roger Dorsey MD [address] [place] [address] Hematology/Oncology 11/19/23 Brittani Aguila RN [address] [place] [address] Hematology/Oncology 11/19/23 Medical Technician Relationship Specialty Start Date End Date Jose Brennan, MINING SUPPORT WORKER.COLOR STRAINING BAG WASHER [address] [place] [address] PCP - General Internal Medicine 01/10/23 Vimal Stoner MD [address] [place] [address] Physician Radiation Oncology 11/07/23 Roger Dorsey MD [address] [place] [address] Hematology/Oncology 11/19/23 Brittani Aguila RN [address] [place] [address] Hematology/Oncology 11/19/23 Medical Technician Relationship Specialty Start Date End Date Jose Brennan APRN.COLOR STRAINING BAG WASHER [address] [place] [address] PCP - General Internal Medicine 01/10/23 Vimal Stoner MD [address] [place] [address] Physician Radiation Oncology 11/07/23 Roger Dorsey MD [address] [place] [address] Hematology/Oncology 11/19/23 Brittani Aguila, JAMEY [address] [place] [address] Hematology/Oncology 11/19/23 Medical Technician Relationship Specialty Start Date End Date Jose Brennan APRN.COLOR STRAINING BAG WASHER [address] [place] [address] PCP - General Internal Medicine 01/10/23 Vimal Stoner MD [address] [place] [address] Physician Radiation Oncology 11/07/23 Roger Dorsey MD [address] [place] [address] Hematology/Oncology 11/19/23 Brittani Aguila, JAMEY [address] [place] [address] Hematology/Oncology 11/19/23 Medical Technician Relationship Specialty Start Date End Date Jose Brennan APRN.COLOR STRAINING BAG WASHER [address] [facility] [place] [address] PCP - General Internal Medicine 01/10/23 Vimal Stoner MD [address] [place] [address] Physician Radiation Oncology 11/07/23 Roger Dorsey MD [address] [place] [address] Hematology/Oncology 11/19/23 Brittani Aguila RN [address] [place] [address] Hematology/Oncology 11/19/23 Medical Technician Relationship Specialty Start Date End Date Jose Brennan APRN.COLOR STRAINING BAG WASHER [address] [facility] [place] [address] PCP - General Internal Medicine 01/10/23 Vimal Stoner MD [address] [place] [address] Physician Radiation Oncology 11/07/23 Roger Dorsey MD [address] [place] [address] Hematology/Oncology 11/19/23 Brittani Aguila, JAMEY [address] [place] [address] Hematology/Oncology 11/19/23 Medical Technician Relationship Specialty Start Date End Date Jose Brennan APRN.COLOR STRAINING BAG WASHER [address] [facility] [place] [address] PCP - General Internal Medicine 01/10/23 Vimal Stoner MD [address] [place] [address] Physician Radiation Oncology 11/07/23 Roger Dorsey MD [address] [place] [address] Hematology/Oncology 11/19/23 Brittani Aguila, JAMEY [address] [place] [address] Hematology/Oncology 11/19/23 Medical Technician Relationship Specialty Start Date End Date Jose Brennan, MINING SUPPORT WORKER.COLOR STRAINING BAG WASHER [address] [facility] [place] [address] PCP - General Internal Medicine 01/10/23 Vimal Stoner MD [address] [place] [address] Physician Radiation Oncology 11/07/23 Roger Dorsey MD [address] [place] [address] Hematology/Oncology 11/19/23 Brittani Aguila, RN [address] [place] [address] Hematology/Oncology 11/19/23 Medical Technician Relationship Specialty Start Date End Date Jose Brennan MINING SUPPORT WORKER.COLOR STRAINING BAG WASHER [address] [facility] [place] [address] PCP - General Internal Medicine 01/10/23 Vimal Stoner MD [address] [place] [address] Physician Radiation Oncology 11/07/23 Roger Dorsey MD [address] [place] [address] Hematology/Oncology 11/19/23 Brittani Aguila, JAMEY [address] [place] [address] Hematology/Oncology 11/19/23 Medical Technician Relationship Specialty Start Date End Date Jose Brennan, MINING SUPPORT WORKER.COLOR STRAINING BAG WASHER [address] [facility] [address] PCP - General Internal Medicine 01/10/23 Vimal Stoner MD [address] [place] [address] Physician Radiation Oncology 11/07/23 Roger Dorsey MD [address] [place] [address] Hematology/Oncology 11/19/23 Brittani Aguila RN [address] [place] [address] Hematology/Oncology 11/19/23 Medical Technician Relationship Specialty Start Date End Date Jose Brennan, MINING SUPPORT WORKER.COLOR STRAINING BAG WASHER [address] [facility] [place] [address] PCP - General Internal Medicine 01/10/23 Vimal Stoner MD [address] [place] [address] Physician Radiation Oncology 11/07/23 Roger Dorsey MD [address] [place] [address] Hematology/Oncology 11/19/23 Brittani Aguila, JAMEY [address] [place] [address] Hematology/Oncology 11/19/23 Medical Technician Relationship Specialty Start Date End Date Jose Brennan, MINING SUPPORT WORKER.COLOR STRAINING BAG WASHER [address] [facility] [place] [address] PCP - General Internal Medicine 01/10/23 Vimal Stoner MD [address] [place] [address] Physician Radiation Oncology 11/07/23 Roger Dorsey MD [address] [place] [address] Hematology/Oncology 11/19/23 Brittani Aguila RN [address] [place] [address] Hematology/Oncology 11/19/23 Medical Technician Relationship Specialty Start Date End Date Jose Brennan MINING SUPPORT WORKER.COLOR STRAINING BAG WASHER [address] [facility] [place] [address] PCP - General Internal Medicine 01/10/23 Vimal Stoner MD [address] [place] [address] Physician Radiation Oncology 11/07/23 Roger Dorsey MD [address] [place] [address] Hematology/Oncology 11/19/23 Brittani Aguila RN [address] [place] [address] Hematology/Oncology 11/19/23 Medical Technician Relationship Specialty Start Date End Date Jose Brennan, MINING SUPPORT WORKER.COLOR STRAINING BAG WASHER [address] [facility] [place] [address] PCP - General Internal Medicine 01/10/23 Vimal Stoner MD [address] [place] [address] Physician Radiation Oncology 11/07/23 Roger Dorsey MD [address] [place] [address] Hematology/Oncology 11/19/23 Brittani Augila RN [address] [place] [address] Hematology/Oncology 11/19/23 Medical Technician Relationship Specialty Start Date End Date Jose Brennan, MINING SUPPORT WORKER.COLOR STRAINING BAG WASHER [address] [facility] [place] [address] PCP - General Internal Medicine 01/10/23 Vimal Stoner MD [address] [place] [address] Physician Radiation Oncology 11/07/23 Roger Dorsey MD [address] [place] [address] Hematology/Oncology 11/19/23 Brittani Aguila RN [address] [place] [address] Hematology/Oncology 11/19/23 Medical Technician Relationship Specialty Start Date End Date Jose Brennan APRN.COLOR STRAINING BAG WASHER [address] [facility] [place] [address] PCP - General Internal Medicine 01/10/23 Vimal Stoner MD [address] [place] [address] Physician Radiation Oncology 11/07/23 Roger Dorsey MD [address] [place] [address] Hematology/Oncology 11/19/23 Brittani Aguila, JAMEY [address] [place] [address] Hematology/Oncology 11/19/23 Medical Technician Relationship Specialty Start Date End Date Jose Brennan APRN.COLOR STRAINING BAG WASHER [address] [place] [address] PCP - General Internal Medicine 01/10/23 Vimal Stoner MD [address] [place] [address] Physician Radiation Oncology 11/07/23 Roger Dorsey MD [address] [place] [address] Hematology/Oncology 11/19/23 Brittani Aguila, JAMEY [address] [place] [address] Hematology/Oncology 11/19/23 Medical Technician Relationship Specialty Start Date End Date Jose Brennan APRN.COLOR STRAINING BAG WASHER [address] [facility] [place] [address] PCP - General Internal Medicine 01/10/23 Vimal Stoner MD [address] [place] [address] Physician Radiation Oncology 11/07/23 Roger Dorsey MD [address] [place] [address] Hematology/Oncology 11/19/23 Brittani Aguila RN [address] [place] [address] Hematology/Oncology 11/19/23 Medical Technician Relationship Specialty Start Date End Date Jose Brennan APRN.COLOR STRAINING BAG WASHER [address] [facility] [place] [address] PCP - General Internal Medicine 01/10/23 Vimal Stoner MD [address] [place] [address] Physician Radiation Oncology 11/07/23 Roger Dorsey MD [address] [place] [address] Hematology/Oncology 11/19/23 Brittani Aguila, JAMEY [address] [place] [address] Hematology/Oncology 11/19/23 Medical Technician Relationship Specialty Start Date End Date Jose Brennan APRN.COLOR STRAINING BAG WASHER [address] [facility] [place] [address] PCP - General Internal Medicine 01/10/23 Vimal Stoner MD [address] [place] [address] Physician Radiation Oncology 11/07/23 Roger Dorsey MD [address] [place] [address] Hematology/Oncology 11/19/23 Brittani Aguila, JAMEY [address] [place] [address] Hematology/Oncology 11/19/23 Medical Technician Relationship Specialty Start Date End Date Jose Brennan, MINING SUPPORT WORKER.COLOR STRAINING BAG WASHER [address] [place] [address] PCP - General Internal Medicine 01/10/23 Vimal Stoner MD [address] [place] [address] Physician Radiation Oncology 11/07/23 Roger Dorsey MD [address] [place] [address] Hematology/Oncology 11/19/23 Brittani Aguila, JAMEY [address] [place] [address] Hematology/Oncology 11/19/23 Medical Technician Relationship Specialty Start Date End Date Jose Brennan MINING SUPPORT WORKER.COLOR STRAINING BAG WASHER [address] [place] [address] PCP - General Internal Medicine 01/10/23 Vimal Stoner MD [address] [place] [address] Physician Radiation Oncology 11/07/23 Roger Dorsey MD [address] [place] [address] Hematology/Oncology 11/19/23 Brittani Aguila, JAMEY [address] [place] [address] Hematology/Oncology 11/19/23 Medical Technician Relationship Specialty Start Date End Date Jose Brennan, MINING SUPPORT WORKER.COLOR STRAINING BAG WASHER [address] [place] [address] PCP - General Internal Medicine 01/10/23 Vimal Stoner MD [address] [place] [address] Physician Radiation Oncology 11/07/23 Roger Dorsey MD [address] [place] [address] Hematology/Oncology 11/19/23 Brittani Aguila, RN [address] [place] [address] Hematology/Oncology 11/19/23 Medical Technician Relationship Specialty Start Date End Date Jose Brennan, MINING SUPPORT WORKER.COLOR STRAINING BAG WASHER [address] [place] [address] PCP - General Internal Medicine 01/10/23 Vimal Stoner MD [address] [place] [address] Physician Radiation Oncology 11/07/23 Roger Dorsey MD [address] [place] [address] Hematology/Oncology 11/19/23 Brittani Aguila RN [address] [place] [address] Hematology/Oncology 11/19/23 Medical Technician Relationship Specialty Start Date End Date Jose Brennan, MINING SUPPORT WORKER.COLOR STRAINING BAG WASHER [address] [place] [address] PCP - General Internal Medicine 01/10/23 Vimal Stoner MD [address] [place] [address] Physician Radiation Oncology 11/07/23 Roger Dorsey MD [address] [place] [address] Hematology/Oncology 11/19/23 Brittani Aguila RN [address] [place] [address] Hematology/Oncology 11/19/23 Medical Technician Relationship Specialty Start Date End Date Jose Brennan, MINING SUPPORT WORKER.COLOR STRAINING BAG WASHER [address] [place] [address] PCP - General Internal Medicine 01/10/23 Vimal Stoner MD [address] [place] [address] Physician Radiation Oncology 11/07/23 Roger Dorsey MD [address] [place] [address] Hematology/Oncology 11/19/23 Brittani Aguila RN [address] [place] [address] Hematology/Oncology 11/19/23 Medical Technician Relationship Specialty Start Date End Date Jose Brennan APRN.COLOR STRAINING BAG WASHER [address] [place] [address] PCP - General Internal Medicine 01/10/23 Vimal Stoner MD [address] [place] [address] Physician Radiation Oncology 11/07/23 Roger Dorsey MD [address] [place] [address] Hematology/Oncology 11/19/23 Brittani Aguila RN [address] [place] [address] Hematology/Oncology 11/19/23 Medical Technician Relationship Specialty Start Date End Date Jose Brennan MINING SUPPORT WORKER.COLOR STRAINING BAG WASHER [address] [place] [address] PCP - General Internal Medicine 01/10/23 Vimal Stoner MD [address] [place] [address] Physician Radiation Oncology 11/07/23 Roger Dorsey MD [address] [place] [address] Hematology/Oncology 11/19/23 Brittani Aguila RN [address] [place] [address] Hematology/Oncology 11/19/23 Medical Technician Relationship Specialty Start Date End Date Jose Brennan APRN.COLOR STRAINING BAG WASHER [address] [place] [address] PCP - General Internal Medicine 01/10/23 Vimal Stoner MD [address] [place] [address] Physician Radiation Oncology 11/07/23 Roger Dorsey MD [address] [place] [address] Hematology/Oncology 11/19/23 Brittani Aguila, JAMEY [address] [place] [address] Hematology/Oncology 11/19/23 Medical Technician Relationship Specialty Start Date End Date Jose Brennan APRN.COLOR STRAINING BAG WASHER [address] [place] [address] PCP - General Internal Medicine 01/10/23 Vimal Stoner MD [address] [place] [address] Physician Radiation Oncology 11/07/23 Roger Dorsey MD [address] [place] [address] Hematology/Oncology 11/19/23 Brittani Aguila, JAMEY [address] [place] [address] Hematology/Oncology 11/19/23 Medical Technician Relationship Specialty Start Date End Date Jose Brennan APRN.COLOR STRAINING BAG WASHER [address] [place] [address] PCP - General Internal Medicine 01/10/23 Vimal Stoner MD [address] [place] [address] Physician Radiation Oncology 11/07/23 Roger Dorsey MD [address] [place] [address] Hematology/Oncology 11/19/23 Brittani Aguila, JAMEY [address] [place] [address] Hematology/Oncology 11/19/23 Medical Technician Relationship Specialty Start Date End Date Jose Brennan APRN.COLOR STRAINING BAG WASHER [address] [place] [address] PCP - General Internal Medicine 01/10/23 Vimal Stoner MD [address] [place] [address] Physician Radiation Oncology 11/07/23 Roger Dorsey MD [address] [place] [address] Hematology/Oncology 11/19/23 Brittani Aguila, RN [address] [place] [address] Hematology/Oncology 11/19/23 Medical Technician Relationship Specialty Start Date End Date Jose Brennan APRN.COLOR STRAINING BAG WASHER [address] [place] [address] PCP - General Internal Medicine 01/10/23 Vimal Stoner MD [address] [place] [address] Physician Radiation Oncology 11/07/23 Roger Dorsey MD [address] [place] [address] Hematology/Oncology 11/19/23 Brittani Aguila, JAMEY [address] [place] [address] Hematology/Oncology 11/19/23 Medical Technician Relationship Specialty Start Date End Date Jose Brennan MINING SUPPORT WORKER.COLOR STRAINING BAG WASHER [address] [place] [address] PCP - General Internal Medicine 01/10/23 Vimal Stoner MD [address] [place] [address] Physician Radiation Oncology 11/07/23 Roger Dorsey MD [address] [place] [address] Hematology/Oncology 11/19/23 Brittani Aguila RN [address] [place] [address] Hematology/Oncology 11/19/23 Medical Technician Relationship Specialty Start Date End Date Jose Brennan MINING SUPPORT WORKER.COLOR STRAINING BAG WASHER [address] [place] [address] PCP - General Internal Medicine 01/10/23 Vimla Stoner MD [address] [place] [address] Physician Radiation Oncology 11/07/23 Roger Dorsey MD [address] [place] [address] Hematology/Oncology 11/19/23 Brittani Aguila, JAMEY [address] [place] [address] Hematology/Oncology 11/19/23 Medical Technician Relationship Specialty Start Date End Date Jose rBennan, MINING SUPPORT WORKER.COLOR STRAINING BAG WASHER [address] [place] [address] PCP - General Internal Medicine 01/10/23 Vimal Stoner MD [address] [place] [address] Physician Radiation Oncology 11/07/23 Roger Dorsey MD [address] [place] [address] Hematology/Oncology 11/19/23 Brittani Aguila, JAMEY [address] [place] [address] Hematology/Oncology 11/19/23 Medical Technician Relationship Specialty Start Date End Date Jose Brennan, MINING SUPPORT WORKER.COLOR STRAINING BAG WASHER [address] [place] [address] PCP - General Internal Medicine 01/10/23 Vimal Stoner MD [address] [place] [address] Physician Radiation Oncology 11/07/23 Roger Dorsey MD [address] [place] [address] Hematology/Oncology 11/19/23 Brittani Aguila RN [address] [place] [address] Hematology/Oncology 11/19/23 Medical Technician Relationship Specialty Start Date End Date oJse Brennan, MINING SUPPORT WORKER.COLOR STRAINING BAG WASHER [address] [place] [address] PCP - General Internal Medicine 01/10/23 Vimal Stoner MD [address] [place] [address] Physician Radiation Oncology 11/07/23 Roger Dorsey MD [address] [place] [address] Hematology/Oncology 11/19/23 Brittani Aguila RN [address] [place] [address] Hematology/Oncology 11/19/23 Medical Technician Relationship Specialty Start Date End Date Jose Brennan, MINING SUPPORT WORKER.COLOR STRAINING BAG WASHER [address] [place] [address] PCP - General Internal Medicine 01/10/23 Vimal Stoner MD [address] [place] [address] Physician Radiation Oncology 11/07/23 Roger Dorsey MD [address] [place] [address] Hematology/Oncology 11/19/23 Brittani Aguila RN [address] [place] [address] Hematology/Oncology 11/19/23 Medical Technician Relationship Specialty Start Date End Date Jose Brennan APRN.COLOR STRAINING BAG WASHER [address] [place] [address] PCP - General Internal Medicine 01/10/23 Vimal Stoner MD [address] [place] [address] Physician Radiation Oncology 11/07/23 Roger Dorsey MD [address] [place] [address] Hematology/Oncology 11/19/23 Brittani Aguila RN [address] [place] [address] Hematology/Oncology 11/19/23 Medical Technician Relationship Specialty Start Date End Date Jose Brennan APRN.COLOR STRAINING BAG WASHER [address] [place] [address] PCP - General Internal Medicine 01/10/23 Vimal Stoner MD [address] [place] [address] Physician Radiation Oncology 11/07/23 Roger Dorsey MD [address] [place] [address] Hematology/Oncology 11/19/23 Brittani Aguila RN [address] [place] [address] Hematology/Oncology 11/19/23 Medical Technician Relationship Specialty Start Date End Date Jose Brennan APRN.COLOR STRAINING BAG WASHER [address] [place] [address] PCP - General Internal Medicine 01/10/23 Vimal Stoner MD [address] [place] [address] Physician Radiation Oncology 11/07/23 Roger Dorsey MD [address] [place] [address] Hematology/Oncology 11/19/23 Brittani Aguila, JAMEY [address] [place] [address] Hematology/Oncology 11/19/23 Medical Technician Relationship Specialty Start Date End Date Jose Brennan APRN.COLOR STRAINING BAG WASHER [address] [place] [address] PCP - General Internal Medicine 01/10/23 Vimal Stoner MD [address] [place] [address] Physician Radiation Oncology 11/07/23 Roger Dorsey MD [address] [place] [address] Hematology/Oncology 11/19/23 Brittani Aguila, JAMEY [address] [place] [address] Hematology/Oncology 11/19/23 Medical Technician Relationship Specialty Start Date End Date Jose Brennan APRN.COLOR STRAINING BAG WASHER [address] [place] [address] PCP - General Internal Medicine 01/10/23 Vimal Stoner MD [address] [place], [place] [address] Physician Radiation Oncology 11/07/23 Roger Dorsey MD [address] [place] [address] [address] Hematology/Oncology 11/19/23 Brittani Aguila, JAMEY [address] [place] [address] Hematology/Oncology 11/19/23 Inactive Administered Medications [...] 30 minutes prior to infusion., Medication Substitution: [facility] preferred product has been replaced with the [...] 30 minutes prior to infusion., Medication Substitution: [facility] preferred product has been replaced with the [...] BE BASED ON THE PRIMARY CLINICAL RECORDS. [employer] provides no warranty or guarantee of the accuracy or completeness of information in this document.
--- NOTE | 2025-03-13 11:25 | CT_ITS ---
PROCEDURE: BRAIN/HEAD WITHOUT CONTRAST 03/13/2025 REASON FOR EXAM: HEADACHES, HISTORY OF LUNG CANCER TECHNIQUE: BRAIN/HEAD WITHOUT CONTRAST Coronal and Sagittal reconstruction series were provided. One or more dose reduction techniques were used (e.g., Automated exposure control, adjustment of the mA and/or kV according to patient size, use of iterative reconstruction technique. RADIATION DOSE SUMMARY: CTDlvol: 82.28 mGy DLP: 2158.52 mGycm COMPARISON: None. FINDINGS: Status post left temporal craniotomy and aneurysm clipping. The clip appears to have been placed at the area of the branching point of the middle cerebral artery. There is no evidence of acute intracranial hemorrhage or infarction. There are no abnormal intracranial masses or mass effects. The ventricular system and basilar cisterns are unremarkable. There is calcific vascular disease of the intracranial portion of both internal carotid arteries. The skull base and calvarium are normal. There is mild mucosal thickening of the frontal sinuses the ethmoidal air cells in the sphenoid sinuses. Status post functional endoscopic sinus surgery. The mastoid air cells are clear. The intraorbital contents are normal. The visualized extracranial soft tissues are normal. CT/Brain/Head without Contrast IMPRESSION: 1. Status post left temporal craniotomy and aneurysm clipping. 2. There is no evidence of acute intracranial pathology. Reading Location: [id number]
--- NOTE | 2025-03-13 11:25 | CT_ITS ---
PROCEDURE: ABDOMEN/PELVIS W IV CONT ONLY 03/13/2025 REASON FOR EXAM: ABDOMINAL PAIN, HISTORY OF LUNG CANCER. History of prostate cancer. TECHNIQUE: ABDOMEN/PELVIS W IV CONT ONLY Coronal and Sagittal reconstruction series were provided. CONTRAST: Isovue-300 VOLUME: 94 mL One or more dose reduction techniques were used (e.g., Automated exposure control, adjustment of the mA and/or kV according to patient size, use of iterative reconstruction technique. RADIATION DOSE SUMMARY: CTDlvol: 36.29 mGy DLP: 1294.92 mGycm COMPARISON: CT abdomen and pelvis without contrast, . FINDINGS: Lung bases: There is linear scarring in the upper lobe of the left lung. There are no pleural effusions. The heart size is normal. There is no pericardial effusion. There is calcific vascular disease of the thoracic aorta and coronary arteries. Liver: There are multiple small low-density foci throughout the liver. Gallbladder: Normal. There is mild intra and extrahepatic biliary ductal dilatation. Spleen: There are multiple low-density foci in the spleen. Pancreas: Normal. Adrenals: Normal. Kidneys: There is bilateral nephrolithiasis. Bladder: Normal unenhanced appearance. Reproductive Organs: There are brachytherapy seeds in the prostate gland. The seminal vesicles are unremarkable. There is no free fluid in the pelvis. There is no inguinal lymphadenopathy. Bowel: Status post partial small-bowel resection. The anastomosis appears unremarkable. The colon is unremarkable. Appendix: Normal. Lymph nodes: There is no mesenteric, retroperitoneal or pelvic lymphadenopathy. Vasculature: There is calcific vascular disease of the abdominal aorta. The inferior vena cava and portal venous system are normal. Peritoneum / Retroperitoneum: There are no abnormal intra or retroperitoneal masses or fluid collections. There are no abdominal wall defects. Bones: Status post PLIF, L2 through S1. There are numerous mixed lytic and sclerotic foci in the spine, pelvis and proximal femora. CT/Abdomen/Pelvis W IV Cont ONLY IMPRESSION: 1. Mixed lytic and sclerotic foci in the visualized portion of the axial and a ppendicular skeleton consistent with metastatic disease. Could be from lung or prostate. 2. There are multiple low-density foci throughout the liver and spleen of unce rtain etiology. 3. Other findings as noted. Reading Location: [facility]
[2025-03-13 11:27] LABS: Mucous, Urine 0 SEEN /hpf (<or=2+); Squamous Epithelial Cells - UA 0 SEEN /hpf (0-5)
[2025-03-13 11:30] LABS: Color, Urine Yellow (Yellow); Glucose, Dipstick Normal (Normal); Ketone-Dipstick 15 mg/dl (Negative); Leukocyte Esterase-Dipstick Negative /ul (Negative); Nitrite-Dipstick Negative (Negative); Occult Blood-Urine 10 /ul (Negative); Protein-Dipstick 30 mg/dl (Negative); Specific Gravity, Urine 1.020 (1.002-1.030); Urine Bilirubin Dipstick Negative (Negative)
[2025-03-13 11:37] LABS: Red Blood Cells-Urine 0-5 SEEN /hpf (0-5)
[2025-03-13 11:38] LABS: AST(SGOT) 77 U/L (<=37); Alanine Aminotransfer ALT/SGPT 180 U/L (<=46); Albumin, Serum 4.7 g/dL (3.4-4.8); Alkaline Phosphatase 591 U/L (40-129); Anion Gap 15 (5-15); BUN 18 mg/dL (4-19); BUN/Creat Ratio 21.9 RATIO (10-20); Calcium,Total 10.7 mg/dL (7.6-11.0); Carbon Dioxide 26.2 mmol/L (21.0-32.0); Chloride 98 mmol/L (98-108); Estimated Creatinine Clearance 95.13 ml/min (50-250); Globulin 3.2 g/dL (2.2-4.2); Glucose 141 mg/dL (70-99); Lipase 60 U/L (13-75); Magnesium 2.1 mg/dL (1.5-2.2); Potassium 4.2 mmol/L (3.3-5.1)
--- NOTE | 2025-03-13 13:05 | ED.VIS.DYS ---
HPI History of Present Illness Chief Complaint: Nausea/Vomiting Narrative Narrative: Chief complaint and HPI: Nausea, decreased appetite, intermittent headaches. 64-year-old male with past medical history of metastatic lung cancer no longer on chemotherapy who follows with [facility] oncology presents for evaluation of nausea, decreased appetite, intermittent headaches. Onset of symptoms have been approximately 21 days. Occasional nonbilious/nonbloody emesis. Patient states he called the oncologist office today who told him to come to the emergency department. He denies any fever, chills, shortness of breath, chest pain, abdominal pain, diarrhea, constipation, dysuria. Triage note states flulike symptoms however he denies any URI symptoms to me. Review of systems: See HPI Medications: As listed on the chart Allergies: As listed on the chart PFSH: Per chart Vital signs: As listed on the chart. Reviewed. Physical exam: Gen: A&O x3, NAD however sitting in a dark room secondary to his headache as he states the light periodically bothers him Head: Normocephalic, atraumatic Eyes: No sclera icterus, conjunctiva clear, PERRL, EOMI ENT: TMs clear BL, mildly dry mucous membranes, posterior oropharynx unremarkable Neck: Trachea midline, No JVD, Full ROM, No meningismus CV: RRR, no murmurs, no peripheral edema Resp: Lungs CTA BL, no w/r/c GI: Abd soft, non-distended, non-tender, no r/r/g Musc: Full ROM, no deformity Skin: Warm, dry, no rash Neuro: Alert, oriented, grossly intact, sensation intact Psych: Cooperative, appropriate mood and affect [facility] Medical History (Updated 03/13/25 @ 14:[address] Jesus Ferrari DO) Lung cancer H/O prostate cancer Home Medications ?Medication ?Instructions ?Recorded ?Last Taken ?Type Cholecalciferol (Vitamin D3) 5,000 unit PO DAILY 12/05/16 Unknown History [Vitamin D3] atorvastatin 20 mg tablet 20 mg PO DAILY 12/05/16 Unknown History multivit with minerals-folic 1 ea PO DAILY 12/05/16 Unknown History acid-lycopene 0.4 mg-600 mcg tablet (One Daily For Men) omeprazole 20 mg capsule,delayed 40 mg PO DAILY 12/05/16 02/10/17 05:30 History release 40 MG vitamin B complex-folic acid 0.4 0.4 mg PO DAILY 12/05/16 Unknown History mg tablet (Super B Maxi Complex) meloxicam 15 mg tablet 15 mg PO DAILY 07/20/19 Unknown History ondansetron 4 mg disintegrating 4 mg PO Q8H PRN PRN Nausea #10 tabs 03/13/25 Unknown Rx tablet Allergy/AdvReac Type Severity Reaction Status Date / Time codeine AdvReac Nausea Verified 03/13/25 09:00 milk AdvReac Other Verified 03/13/25 09:00 Surgical History (Updated 11/18/21 @ 00:01 by Yue Jiménez) History of knee surgery Social History Smoking Status: Former smoker EXAM Physical Exam Const Vital Signs: 03/13/25 08:52 03/13/25 09:00 03/13/25 10:00 Temperature 97.7 F L 96.8 F L 96.9 F L Temperature Source Temporal Temporal Temporal Pulse Rate 95 96 90 Respiratory Rate 18 18 18 Blood Pressure 159/96 H 124/97 H 155/133 H Blood Pressure Mean 117 106 140 Pulse Ox 97 98 93 Oxygen Delivery Method Room Air Room Air Room Air 03/13/25 11:00 03/13/25 12:00 03/13/25 14:00 Temperature 96.8 F L 97.7 F L Temperature Source Temporal Oral Pulse Rate 88 81 83 Respiratory Rate 18 16 17 Blood Pressure 154/104 H 159/133 H Blood Pressure Mean 120 141 Pulse Ox 97 94 97 Oxygen Delivery Method Room Air Room Air Room Air 03/13/25 14:33 03/13/25 14:34 Temperature 97.7 F L Temperature Source Pulse Rate 83 83 Respiratory Rate 17 18 Blood Pressure 159/133 H Blood Pressure Mean 141 Pulse Ox 97 97 Oxygen Delivery Method MDM MDM MDM Narrative Medical decision making narrative: 64-year-old male with past medical history of metastatic lung cancer no longer on chemotherapy who follows with [facility] oncology presents for evaluation of nausea, decreased appetite, intermittent headaches. Onset of symptoms have been approximately 21 days. States he called the oncologist office today who told him to present to the emergency department. See physical exam findings. Differential diagnosis includes but is not limited to worsening metastatic cancer, carcinomatosis, metastatic spread to the brain, electrolyte abnormality, NYDIA, UTI. Given this has been ongoing for 21 days suspect less likely viral etiology. Morphine, NS bolus, Zofran ordered for symptoms. Laboratory workup ordered including CT head as well as abdomen and pelvis. CBC without leukocytosis or anemia. Platelets unremarkable. CMP unremarkable for significant electrolyte abnormality or NYDIA. Patient does have transaminitis with an AST of 77, ALT of 180 and alkaline phosphatase at 591. Elevation of alkaline phosphatase may be secondary to his lung cancer metastasizing to bone. Lipase unremarkable. Lactic acid elevated at 2.3. Will recheck after NS bolus. UA negative for UTI but positive for ketones again consistent with mild dehydration. CT of the brain shows status post left temporal craniotomy and aneurysm clipping. No acute intracranial findings. CT of the abdomen pelvis shows mixed lytic and sclerotic foci in the visualized portion of the axial and appendicular skeleton consistent with metastatic disease. There are multiple low-density foci throughout the liver and spleen of uncertain etiology. Concern is that this may be new metastasis. This may be also reason for the patient's transaminitis. At this point in time, no acute pathology to explain the patient's symptoms although I suspect it is secondary to his metastatic cancer. Given that patient states that his oncologist office who sent him into the emergency department, I did reach out to [facility] oncology and spoke with his oncologist Dr. Carson. He agrees with the plan to discharge home on Zofran. Follow-up in his office this week. Call to make an appointment. I updated the patient of all his results and the plan for discharge home. His headache has improved. He states that that he has an appointment with him tomorrow morning. I told him to keep the appointment. Return back to ED if symptoms change or worsen. He confirmed understanding the plan. Zofran prescription sent. Recommended liquid/soft diet for the next several days Impression: 1. Nausea with intermittent emesis 2. Headache 3. History of metastatic lung cancer 4. Concern for new metastasis to the liver and spleen 5. Transaminitis likely secondary to #4 6. Mild dehydration Lab Data Labs: Laboratory Results - last 24 hr 03/13/25 03/13/25 03/13/25 11:05 11:20 12:42 WBC 9.8 RBC 5.69 Hgb 16.2 Hct 48.4 MCV 85.1 MCH 28.5 MCHC 33.5 RDW Std Deviation 44.8 H RDW Coeff of Lissett 14.6 Plt Count 323 MPV 8.3 Immature Gran % (Auto) 0.800 Neut % (Auto) 76.2 H Lymph % (Auto) 12.7 L Mcdonough % (Auto) 9.3 Eos % (Auto) 0.2 Baso % (Auto) 0.8 Absolute Neuts (auto) 7.4 Absolute Lymphs (auto) 1.24 Nucleated RBC % 0 Sodium 139 Potassium 4.2 Chloride 98 Carbon Dioxide 26.2 Anion Gap 15 BUN 18 Creatinine 0.81 Estim Creat Clear Calc 95.13 Est GFR (MDRD) Non-Af 99 BUN/Creatinine Ratio 21.9 H Glucose 141 H Lactic Acid 2.3 H* 1.6 Calcium 10.7 Magnesium 2.1 Total Bilirubin 0.81 AST 77 H ALT 180 H Alkaline Phosphatase 591 H Total Protein 7.9 Albumin 4.7 Globulin 3.2 Albumin/Globulin Ratio 1.5 Lipase 60 Urine Color Yellow Urine Clarity Clear Urine pH 6.0 Ur Specific Wilburn 1.020 Urine Protein 30 H Urine Glucose (UA) Normal Urine Ketones 15 H Urine Occult Blood 10 H Urine Nitrite Negative Urine Bilirubin Negative Urine Urobilinogen 1 H Ur Leukocyte Esterase Negative Urine RBC 0-5 SEEN Urine WBC 0 SEEN Ur Squamous Epith Cells 0 SEEN Urine Bacteria 0 SEEN Urine Mucus 0 SEEN Radiography Diagnostic Testing: Clinical Impression(s) from Imaging Studies Abdomen/Pelvis CT 03/13/25 11:25 IMPRESSION: 1. Mixed lytic and sclerotic foci in the visualized portion of the axial and appendicular skeleton consistent with metastatic disease. Could be from lung or prostate. 2. There are multiple low-density foci throughout the liver and spleen of uncertain etiology. 3. Other findings as noted. Reading Location: [facility] [address] Brain CT 03/13/25 11:25 IMPRESSION: 1. Status post left temporal craniotomy and aneurysm clipping. 2. There is no evidence of acute intracranial pathology. Reading Location: [facility] [address] Discharge Plan Triage Chief Complaint: Nausea/Vomiting Other Complaint: Cold Sx ED Provider: Jesus Ferrari Dx/Rx/DC Orders Clinical Impression: Nausea & vomiting, Headache, Mild dehydration Instructions: ED Diet Vomiting Diarrhea, ED Vomiting (Adult) Prescriptions: New ondansetron 4 mg tablet,disintegrating 4 mg PO Q8H PRN PRN (Reason: Nausea) Qty: 10 0RF No Action atorvastatin 20 MG tablet 20 mg PO DAILY vitamin B complex-folic acid [Super B Maxi Complex] 0.4 MG tablet 0.4 mg PO DAILY multivit with [id number] [One Daily For Men] 1 EACH tablet 1 ea PO DAILY Cholecalciferol (Vitamin D3) [Vitamin D3] 5,000 UNIT capsule 5,000 unit PO DAILY meloxicam 15 MG tablet 15 mg PO DAILY Patient Comments: TAKE 1 TABLET BY MOUTH EVERY DAY WITH FOOD omeprazole 20 MG capsule 40 mg PO DAILY Primary Care Provider: [facility] Referrals: Roger Giraldo MD [Med Staff - Active Staff] - 3-5 Days [facility] [Primary Care Provider] - 3-5 Days Activity Restrictions/Additional Instructions: Keep your appointment with oncology tomorrow. Return back to the ED if symptoms change or worsen. Recommend liquid/soft diet for nausea and vomiting. Make sure you are drinking plenty of fluids including water, Gatorade, Pedialyte. Antinausea medicine as needed. Tylenol as needed for headache. Your CT abdomen pelvis shows possible spread of cancer to your liver and spleen. Follow-up with your oncologist for this. Print Language: Upper Sorbian Disposition Disposition: Home, Self Care Discharge Date/Time: 03/13/25 14:35
[2025-03-13 15:07] LABS: Reflex Lactate? Y
== END 2025-03-13 14:35 | disposition home or self-care (01) ==
PROVIDERS: Emergency Provider Surgery; Visit Provider Surgery
DX: R11.2 Nausea with vomiting, unspecified (principal); R51.9 Headache, unspecified; E86.0 Dehydration; Z87.891 Personal history of nicotine dependence
CPT/HCPCS: 70450; 74177; 80053; 81001; 83605; 83690; 83735; 85025; 96361; 96374; 96375; 96376; 99285; Q9967; A4216; J2405